=== PATIENT | female | born 1995 | race Caucasian/White ===

== ENCOUNTER 2019-07-21 13:10 | Emergency (ER) | payer MEDICAID, SELFPAY ==
[2019-07-21 13:11] VITALS: BP 134/74; PULSE 89; RESP 16; TEMP 36.4; O2SAT 96; BMI 37.8
--- NOTE | 2019-07-21 14:02 | CT_ITS ---
STUDY: CT ABDOMEN AND PELVIS WITHOUT CONTRAST REASON FOR EXAM: Female, 24 years old. LLQ PAIN- NAUSEA, SURG-LAILA, X 2, HAS IUD RADIATION DOSAGE (If Supplied By Facility): CTDIvol = ( 14.8 ) mGy, DLP = ( 729.58 ) mGycm TECHNIQUE: Transaxial images were obtained from the dome of the diaphragm to the symphysis pubis without oral contrast, and without intravenous contrast. Sagittal and coronal images were reconstructed. Individualized dose optimization techniques were used for this CT. COMPARISON: None. FINDINGS: The visualized lung bases are unremarkable. The visualized portions of the heart are within normal limits. Normal liver. There are surgical clips in the gallbladder fossa consistent with a prior cholecystectomy. Normal spleen. Normal pancreas. Normal bilateral adrenal glands. Normal right kidney. Normal left kidney. Normal visualized stomach. Normal small intestine. Focal stranding in the fat anterior to the distal descending colon. Differential diagnosis includes focal colitis, diverticulitis even though no diverticular seen, or epiploic appendicitis. No loculated fluid collection to suggest abscess. No pneumoperitoneum to suggest perforation. The appendix is visualized and appears normal. Normal abdominal aorta. Normal inferior vena cava. Normal retroperitoneum. Normal urinary bladder. Intrauterine device within the uterus. Normal abdominal wall. Normal osseous structures. CT/Abdomen/Pelvis without Cont IMPRESSION: Small amount of focal fat stranding anterior to the distal descending colon differential diagnosis includes focal colitis, diverticulitis, or epiploic appendicitis. No abscess or perforation. Electronically Signed: Jeff Topete MD at 15:14 EST Tel , Service support ,
--- NOTE | 2019-07-21 14:07 | ED.DCSUM_ITS ---
History of Present Illness Chief Complaint: Abd Pain Informant: Patient Narrative: Patient presents with lower left abdominal pain. Patient states that symptoms began after moving her sectional couch. She notes pain with walking with laying down. She states it feels better if she lays on her abdomen or if she bends her legs up while on her back. No hematuria or bowel issues. She denies any hernia. No bruising of the skin. No vomiting or fevers. She does have a history of ovarian cyst. Pain is described as an ache sometimes sharp. Past Medical History - Allergies and Home Meds Allergies/Adverse Reactions: Allergies amoxicillin Allergy (Verified 07/21/19 13:11) Anaphylaxis cefprozil [From Cefzil] Allergy (Verified 07/21/19 13:11) Itching Penicillins [PCN] Allergy (Verified 07/21/19 13:11) Anaphylaxis bupropion [From Wellbutrin] Adverse Reaction (Verified 07/21/19 13:11) Vomiting Primary Care Physician: Jason Anders MD [Primary Care Provider] - 1 Week Smoking Status: Current every day smoker Review of Systems General: Denies: Chills, Fever, Sweats Eyes: Denies: Visual changes - bilaterally, Diplopia ENT: Denies: Rhinorrhea, Sore throat Cardiovascular: Denies: Chest pain, Palpitations Respiratory: Denies: Dyspnea, Cough, Dyspnea on exertion Gastrointestinal: Reports: Abdominal pain. Denies: Nausea, Vomiting, Diarrhea, Melena, Hematochezia Genitourinary: Denies: Dysuria, Hematuria, Frequency Musculoskeletal: Denies: Back pain, Extremity Pain Skin: Denies: Rash, Wounds Neurological: Denies: Headache, Weakness, Numbness Physical Exam Vital Signs/Narrative: Vital Signs Temp Pulse Resp BP Pulse Ox 07/21/19 13:11 97.5 F L 89 16 134/74 H 96 Inital Vital Signs reviewed: Yes General: Well nourished, Well developed, No Acute Distress Head: Normocephalic, Atraumatic Eyes: Perrl, EOMI ENT: Moist mucous membranes, No rhinorrhea Neck: Supple, Nontender Cardiovascular: Regular rate, Regular rhythm, No murmurs Respiratory: No distress, CTA bilaterally, Chest nontender Abdomen: Soft, Nondistended, Normal bowel sounds, Tender - LLQ pain Back: Nontender, Normal Inspection Extremities: Nontender, No edema Skin: Normal color, No rash Neurological: Alert, Oriented x3, Cranial nerves II-XII grossly intact, Normal Strength, Normal Sensation Psychological: Normal affect, Normal Mood Diagnostic/Tx/Re-eval - Medical Decision Making Urinalysis is nitrate +0-5 white cells 2+ bacteria. We will send this for culture. And she is asymptomatic in terms of dysuria frequency or hematuria. CT of the abdomen pelvis demonstrated some inflammatory changes around a focal area of the descending colon. Unclear if this is a colitis versus a epiploic appendagitis type of picture. At this point I think is reasonable to give her Cipro Flagyl pain and nausea medication and have her follow-up with primary care return if worsening or concerns. She is comfortable with this plan. ED Disposition - Plan for ED Patient: Disposition: Home or Assisted Living Diagnosis: Colitis Prescriptions: Ciprofloxacin [Cipro] 500 mg PO BID #14 tab Prescription Printed metroNIDAZOLE [Flagyl] 500 mg PO Q8H #21 tab Prescription Printed Hydrocodone Bitart/Apap 5-325 [[place] 5MG-325MG] 1 tab PO Q6H PRN PRN 3 Days #10 tab PRN Reason: Pain Prescription Printed Ondansetron [Zofran Odt] 4 mg PO Q8H PRN PRN #10 tab PRN Reason: Nausea Prescription Printed Referrals: Jason Anders MD [Primary Care Provider] - 1 Week
[2019-07-21 14:31] LABS: Mucous, Urine 0 SEEN /hpf (<or=2+); Red Blood Cells-Urine 0 SEEN /hpf (0-5)
[2019-07-21 14:38] LABS: Color, Urine Yellow (Yellow); Glucose, Dipstick Normal (Normal); Ketone-Dipstick Negative (Negative); Leukocyte Esterase-Dipstick 25 /ul (Negative); Nitrite-Dipstick Positive (Negative); Occult Blood-Urine Negative /ul (Negative); Protein-Dipstick Negative (Negative); Urine Bilirubin Dipstick Negative (Negative); Urine Clarity Sl. Cloudy (Clear); Urine Urobilinogen Normal (Normal)
[2019-07-21 14:41] LABS: Internal QC Validated? YES +Cl - CLEAR BKGD; Pregnancy, Urine Negative Negative
[2019-07-21 14:44] LABS: Bacteria 2+ /hpf (None Seen); Squamous Epithelial Cells - UA 0-5 SEEN /hpf (5-10); White Blood Cells 0-5 SEEN /hpf (0-5)
[2019-07-21 15:11] VITALS: BP 125/77; PULSE 82; RESP 18; O2SAT 98
== END 2019-07-21 15:47 | disposition home or self-care (01) ==
PROVIDERS: Emergency Provider Emergency Medicine; PCP Family Medicine
DX: K52.9 Noninfective gastroenteritis and colitis, unspecified (principal); F17.200 Nicotine dependence, unspecified, uncomplicated
CPT/HCPCS: 74176; 81001; 81025; 87086; 87088; 87186; 99282

== ENCOUNTER 2019-12-17 12:01 | Emergency (ER) | payer MEDICAID, SELFPAY ==
[2019-12-17 12:04] VITALS: BP 145/45; PULSE 79; RESP 18; TEMP 36.4; O2SAT 97; BMI 38.8
--- NOTE | 2019-12-17 12:52 | ED.DCSUM_ITS ---
- ER Visit Summary Date of Service: 12/17/19 Chief Complaint: Right shoulder pain History of Present Illness: The patient is a 24 F presenting with right shoulder pain. This started approximately 2 weeks ago. Patient does not recall a specific injury. She states she does a lot of lifting at work. 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 She has tried Tylenol and ibuprofen at home. She denies fever or cough. Denies other complaints. Physical Examination: Vitals are stable. Patient is afebrile. Alert no acute distress. HEENT exam is unremarkable. Neck is supple. Lungs are clear and equal bilaterally. Heart is regular rate and rhythm. Extremities right anterior shoulder tenderness with painful active full range of motion. No erythema or warmth. Neurovascular intact distally. Skin is warm and dry. No focal neurologic deficit. Remainder of exam is unremarkable. Emergency Department Course and Treatment: Patient was given Toradol IM. Right shoulder x-ray shows normal x-ray examination of the shoulder. D-dimer negative. On reevaluation, she is resting comfortably. She is given prescription for Naprosyn. Advised follow-up with her primary care physician. Advised return if worsening complaints. Disposition: Discharge home Impression: Right shoulder sprain This note was generated with [employer] dictation software. It may contain incorrect words, spelling, and punctuation that were not noted in review of the chart prior to signing ED Disposition - Plan for ED Patient: Instructions: ED Shoulder Sprain Prescriptions: Naproxen [Naprosyn] 500 mg PO BID PRN #20 tab Prescription Printed Referrals: Jason Anders MD [Primary Care Provider] -
--- NOTE | 2019-12-17 13:25 | RAD_ITS ---
STUDY: X-RAY - RIGHT SHOULDER REASON FOR EXAM: Female, 24 years old. RIGHT SHOULDER PAIN X 2 WEEKS TECHNIQUE: 4 view(s) of the shoulder. COMPARISON: None. FINDINGS: Normal glenohumeral articulation. Normal acromioclavicular joint. Normal acromion. Normal humeral head and visualized proximal humerus. The soft tissue structures are unremarkable. Normal visualized pulmonary apex. RAD/Shoulder min 2 Views IMPRESSION: Normal x-ray examination of the shoulder. Electronically Signed: Madan Overton MD at 13:41 EDT , Service support ,
[2019-12-17] MEDS: Ketorolac 30 MG/ML Syringe IM (13:52)
[2019-12-17 14:09] LABS: D-Dimer Quantitative (DVT/PE) 0.48 FEU/ug/m (0.27-0.49)
--- NOTE | 2019-12-17 14:20 | ED.DEP ---
ED Disposition - Plan for ED Patient: Instructions: ED Shoulder Sprain Prescriptions: Naproxen [Naprosyn] 500 mg PO BID PRN #20 tablet Referrals: Jason Anders MD [Primary Care Provider] -
== END 2019-12-17 14:53 | disposition home or self-care (01) ==
LOC: ED 12:54
PROVIDERS: Emergency Provider Emergency Medicine; PCP Family Medicine
DX: S43.401A Unspecified sprain of right shoulder joint, initial encounter (principal); X58.XXXA Exposure to other specified factors, initial encounter; Y93.9 Activity, unspecified; Y92.9 Unspecified place or not applicable; Y99.9 Unspecified external cause status
CPT/HCPCS: 73030; 85379; 96372; 99282; A4216

== ENCOUNTER → 2019-12-25 11:23 | Outpatient (CLI) | payer MEDICAID, SELFPAY ==
[2019-12-17 12:04] VITALS: BMI 38.8
== END ==
PROVIDERS: PCP Family Medicine; Referring Provider Nurse Practitioner; Visit Provider Nurse Practitioner
DX: Z20.828 Contact with and (suspected) exposure to other viral communicable diseases (principal)
CPT/HCPCS: 87635; 94799; U0003

== ENCOUNTER 2021-10-26 20:04 | Emergency (ER) | payer MEDICAID, SELFPAY ==
[2021-10-26 20:06] VITALS: BP 137/97; PULSE 95; RESP 18; TEMP 35.9; O2SAT 98; BMI 41.3
[2021-10-26 20:15] VITALS: O2SAT 98
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
--- NOTE | 2021-10-26 20:30 | RAD_ITS ---
STUDY: X-RAY CHEST REASON FOR EXAM: Female, 26 years old. CHEST PAIN trauma TECHNIQUE: XR Chest 2 Views COMPARISON: None FINDINGS: There is no demonstrated pleural abnormality. Normal size heart. Normal mediastinum and marcella. Normal visualized pulmonary arteries. Normal visualized aortic arch and descending thoracic aorta. Normal visualized thoracic spine. Normal visualized ribs, clavicles, and shoulders. There is no demonstrated abnormality of the visualized soft tissue structures of the upper abdomen. RAD/Chest PA and Lateral IMPRESSION: There are no acute findings. Electronically Signed: Efe Muñoz MD at 20:48 EDT ,
[2021-10-26] MEDS: Acetaminophen 325 MG Tablet 650 MG PO (20:59)
== END 2021-10-26 21:01 | disposition home or self-care (01) ==
PROVIDERS: Emergency Provider Emergency Medicine; Visit Provider Emergency Medicine
DX: S80.812A Abrasion, left lower leg, initial encounter (principal); R07.9 Chest pain, unspecified; M54.2 Cervicalgia; F17.210 Nicotine dependence, cigarettes, uncomplicated; V43.52XA Car driver injured in collision with other type car in traffic accident, initial encounter; Y92.410 Unspecified street and highway as the place of occurrence of the external cause; E66.9 Obesity, unspecified; F32.A Depression, unspecified; F41.9 Anxiety disorder, unspecified; Z79.899 Other long term (current) drug therapy
CPT/HCPCS: 71046; 99284

== ENCOUNTER 2023-06-15 01:49 | Emergency (ER) | payer MEDICAID, SELFPAY ==
[2023-06-15 01:49] VITALS: BP 145/75; PULSE 91; RESP 16; TEMP 36.3; O2SAT 98; BMI 41.3
--- NOTE | 2023-06-15 02:13 | CT_ITS ---
EXAM: CT Abdomen And Pelvis W/ Contrast Injection HISTORY: colitis LLQ TECHNIQUE: Routine protocol CT abdomen pelvis. IV Contrast: IV 100mL Isovue-370 . Oral Contrast: without. Sagittal and coronal images were reconstructed. RADIATION DOSAGE (If Supplied By Facility): CTDIvol = ( 17.07 ) mGy, DLP = ( 1215.28 ) mGycm Individualized dose optimization techniques were used for this CT. COMPARISON: CT abdomen and pelvis 07/21/2019. LIMITATIONS: None. FINDINGS: LOWER CHEST: Lung bases are clear. LIVER: Unremarkable. GALLBLADDER/BILE DUCTS: Gallbladder is surgically absent. PANCREAS: Unremarkable. SPLEEN: Unremarkable. ADRENAL GLANDS: Unremarkable. KIDNEYS / URETERS: Unremarkable. BOWEL / MESENTERY: Mild focal stranding adjacent to the wall of the proximal sigmoid colon, surrounding a fat attenuation structure, with mild asymmetric colonic wall thickening. No bowel obstruction. APPENDIX: Identified and normal. No evidence of acute appendicitis. PERITONEUM: No free air. No free fluid. VESSELS: Abdominal aorta is normal caliber. RETROPERITONEUM: Unremarkable. REPRODUCTIVE ORGANS: 2.5 cm cyst or follicle in the left ovary. BLADDER: Unremarkable. ABDOMINAL WALL: Unremarkable. BONES: No acute abnormality. OTHER: None. CT/Abdomen/Pelvis W IV Cont ONLY IMPRESSION: Findings consistent with acute epiploic appendagitis of the proximal sigmoid colon. Electronically Signed: Angelia Armas MD at 3:54 EST ,
--- NOTE | 2023-06-15 02:15 | EDS_ITS ---
HPI History of Present Illness Chief Complaint: Abd Pain Informant: patient Narrative Narrative: 28-year-old female presenting to the emergency room for chief complaint of abdominal pain. 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 She states that now she is having blood in the stool. She states that she had a very similar occurrence in 2019. She was seen by this physician was diagnosed with colitis from the CT. She states that she followed up but did not require a colonoscopy. She has not had a reoccurrence until today. She notes her mom has a history of diverticulitis. Patient denies any fevers. No urinary symptoms. She denies risk of secondary to sterilization. She denies mucus in the stool. She notes that the stool is formed. [facility] Medical History (Updated 06/15/23 @ 04:[address] Myron Machuca DO) Anxiety delivery delivered Colitis Depression PTSD (post-traumatic stress disorder) Home Medications NK 06/15/23 [History Last Taken Unknown] Allergy/AdvReac Type Severity Reaction Status Date / Time amoxicillin Allergy Anaphylaxis Verified 06/15/23 01:50 cefprozil [From Cefzil] Allergy Itching Verified 06/15/23 01:50 Penicillins [PCN] Allergy Anaphylaxis Verified 06/15/23 01:50 bupropion [From Wellbutrin] AdvReac Vomiting Verified 06/15/23 01:50 Surgical History History of tonsillectomy and adenoidectomy Hx of cholecystectomy Social History Smoking Status: Current every day smoker tobacco type: cigarettes ROS ROS ED Constitutional Constitutional ED: Denies chills, fever(s) or weight loss Eyes Eyes: Denies change in vision or diplopia ENT ENT ED: Denies ear pain, rhinorrhea or sore throat Cardiovascular Cardiovascular: Denies chest pain, orthopnea, palpitations or racing heartbeat Respiratory/Chest Respiratory/Chest: Denies cough, dyspnea or orthopnea Gastrointestinal Gastrointestinal: Reports abdominal pain and other Details: Bright red blood per rectum ; Denies constipation, diarrhea, nausea or vomiting Genitourinary Genitourinary ED: Denies dysuria, hematuria or urinary frequency Musculoskeletal Musculoskeletal: Denies arthralgias or myalgias Integumentary Denies abscess or rash Neurologic Neurologic: Denies headache(s) or weakness Psychiatric Psychiatric: Denies anxiety, depression, suicidal ideation or suicidal thoughts Endocrine Endocrinology: Denies polydipsia, polyphagia or polyuria Allergic/Immunologic Allergic/Immunologic ED: Denies mouth swelling, tongue swelling or urticaria EXAM Physical Exam Const Vital Signs: 06/15/23 01:49 06/15/23 03:56 Temperature 97.3 F L Temperature Source Temporal Pulse Rate 91 77 Respiratory Rate 16 16 Blood Pressure 145/75 H 96/64 Blood Pressure Mean 98 74 Pulse Ox 98 96 Oxygen Delivery Method Room Air Room Air Positive well nourished, well developed and obese General Appearance ED: well developed Nutritional Appearance: obese HEENT Reports normocephalic, head/scalp atraumatic and moist mucous membranes Eyes PERRL and EOMs intact bilaterally Neck no lymphadenopathy, supple and no JVD Resp normal respiratory effort and clear to auscultation bilaterally Cardio regular rate, regular rhythm and no murmurs GI Inspection: Negative for abdominal distention Auscultation: normoactive bowel sounds Palpation: soft and tender LLQ; Negative for guarding or rebound tenderness present Back/Spine no CVA tenderness and normal ROM Extremity normal to inspection General Extremety ED: Negative for edema General Extremity: Negative for edema Neuro oriented x3 and CN's II-XII intact bilaterally Sensorium / Orientation: alert Motor Exam: strength 5/5 throughout Psych mental status grossly normal Mood & Affect: Negative for depressed or tearful Skin no rashes or lesions noted and no wounds MDM MDM MDM Narrative Medical decision making narrative: White count slightly elevated 12.2 hemoglobin 13.5 platelet count 311. test negative. Creatinine 0.[address] of the abdomen pelvis with IV contrast was obtained. This shows some inflammatory changes around the proximal aspect of the sigmoid colon. Possible epiploic appendagitis. Although I do not believe that should necessarily cause you to have bright red rectal bleeding and 6 days of pain. There is an ovarian cyst which may be contributing to the pain. This could certainly be another mild case of diverticulitis/ colitis. I do not feel strongly that the patient needs to be admitted. I think we can treat with some pain medication and Cipro Flagyl as she has a penicillin allergy. I would encourage her to obtain GI follow-up. She was advised that should she worsen such as fever or worsening pain increased bleeding she should return to emergency. She notes understanding. History & Record Review Discussion w/independent historian: Patient Additional record(s) reviewed:: Prior outpatient record, Prior ED visit and Prior labs Lab Data Attestation: I reviewed the patient's lab results. Labs: Laboratory Results - last 24 hr 06/15/23 02:04 WBC 12.2 H RBC 5.45 H Hgb 13.5 Hct 44.7 MCV 82.0 MCH 24.8 L MCHC 30.2 L RDW Std Deviation 45.5 H RDW Coeff of Gautam 15.4 H Plt Count 311 MPV 10.8 Immature Gran % (Auto) 0.500 Neut % (Auto) 67.4 Lymph % (Auto) 25.5 [place] % (Auto) 5.3 Eos % (Auto) 0.8 Baso % (Auto) 0.5 Absolute Neuts (auto) 8.2 H Absolute Lymphs (auto) 3.10 Nucleated RBC % 0 Sodium 139 Potassium 3.5 Chloride 107 Carbon Dioxide 26.0 Anion Gap 6 BUN 5 L Creatinine 0.58 Estim Creat Clear Calc 161.90 Est GFR (MDRD) Af Amer 159 Est GFR (MDRD) Non-Af 131 BUN/Creatinine Ratio 8.6 L Glucose 103 Calcium 9.5 Serum , Qual NEGATIVE Radiography Diagnostic Testing: Clinical Impression(s) from Imaging Studies Abdomen/Pelvis CT 06/15/23 02:13 IMPRESSION: Findings consistent with acute epiploic appendagitis of the proximal sigmoid colon. Electronically Signed: Angelia Armas MD at 3:54 EST , Discharge Plan Disposition Disposition: Acute Care [facility] Capacity Legal Teaching Associate Reflex Medical hold order details:: IF a medical hold is selected below, a suggested order for a MEDICAL HOLD will reflex upon signing the document. Next of kin: [place] law dictates a PRIORITY LIST for identifying legal decision-maker/legal next of kin in the following order (LNOK): 1st: The patient?s legal guardian, if any 2nd: The patient's spouse (if status is questionable, consult Risk Management) 3rd: The patient?s adult child(gracia) (majority, if multiple children) 4th: The patient?s parents 5th: The patient?s adult siblings (majority, if multiple children siblings)
[2023-06-15 02:22] LABS: Absolute Neutrophil Count 8.2 X10^3/uL (2.0-7.7); Basophil# 0.06 X10^3/uL; Basophil% 0.5 % (0-1); Eosinophils% 0.8 % (0-5); Hematocrit 44.7 % (37-47); Hemoglobin 13.5 g/dL (12.0-15.0); Lymphocyte % 25.5 % (19-41); Mean Corp Hgb Conc 30.2 g/dL (32-36); Mean Corpuscular Hgb 24.8 pg (27.0-32.0); Mean Platelet Vol. 10.8 fl (6.2-12.0); Monocyte# 0.65 X10^3/uL; Monocyte% 5.3 % (0-10); NRBC Flagged by Analyzer 0 % (0-5); Neutrophil # 8.19 X10^3/uL (2.7-7.7); Neutrophil % 67.4 % (47-70); Platelet Count 311 K/mm3 (150-450); RBC Distribution Width CV 15.4 % (11.6-14.6); RBC Distribution Width SD 45.5 fl (35.1-43.9); Red Blood Count 5.45 M/mm3 (4.2-5.4); White Blood Count 12.2 K/mm3 (4.4-11.0)
[2023-06-15 02:34] LABS: Internal QC Validated? YES +Cl - CLEAR BKGD; Pregnancy, Serum, hCG Quali. NEGATIVE Negative
[2023-06-15 02:38] LABS: Anion Gap 6 (5-15); BUN 5 mg/dL (7-18); BUN/Creat Ratio 8.6 RATIO (10-20); Calcium,Total 9.5 mg/dL (8.5-10.1); Chloride 107 mmol/L (98-107); Creatinine, Serum 0.58 mg/dL (0.55-1.02); EST Glomerular Filtration Rate 131 mL/min (>60); Est Glom Filt Rate - Afr Amer 159 mL/min (>60); Glucose 103 mg/dL (74-106); Potassium 3.5 mmol/L (3.5-5.1); Sodium Level 139 mmol/L (136-145)
--- OUTSIDE RECORDS SUMMARY | 2023-06-15 03:03 | XMS RPT_ITS | CCD ---
Author Name Unknown Address [address] [place] [address] Organization [facility] Prov[facility] A[facility] Cashier Name Role Phone Unavailable Primary Care Provider Unavailabl e No, Physician Primary Care Provider Unavailabl e Unavailable Primary Care Provider Unavailabl e Physician, No Pcp Primary Care Provider Unavaila ble VIKASH, JOHANNA Admitting Unavailable VIKASH, JOHANNA Attending Unavailable PHYSICIAN, NO PCP Primary Care Unavailable No, Physician Primary Care Provider Unavailabl e NO, PHYSICIAN Primary Care Unavailable ANIBAL SUERO Admitting Unavailable ANIBAL SUERO Attending Unavailable NO, PHYSICIAN Primary Care Unavailable (GAS), [facility] Consulting Unavailable TARIQ DIOR Admitting Unavailable TARIQ DIOR Attending Unavailable NO, PHYSICIAN Primary Care Unavailable BUSUITO, HIRO BELEN Admitting Unavailable BUSUITO, HIRO BELEN Attending Unavailable SYSTEM, PROVIDER NOT IN Attending Unavaila ble SYSTEM, PROVIDER NOT IN Referring Unavaila ble NO, PHYSICIAN Primary Care Unavailable NO, PHYSICIAN Primary Care Unavailable DESLANDES, JINNA Admitting Unavailable DESLANDES, JUNIORNA Attending Unavailable BUSUITO, HIRO BELEN Attending Unavailable NO, PHYSICIAN Primary Care Unavailable BUSUITO, HIRO BELEN Referring Unavailable BUSUITO, HIRO BELEN Admitting Unavailable NO, PHYSICIAN Primary Care Unavailable NO, PHYSICIAN Primary Care Unavailable TAMIE AYALA Attending Unavailabl e BUSUITOHIRO Attending Unavailable NO, PHYSICIAN Primary Care Unavailable DESLANDES, JINNA Admitting Unavailable DESLANDES, JINNA Referring Unavailable NO, PHYSICIAN Primary Care Unavailable BUSUITO, HIRO BELEN Attending Unavailable NO, PHYSICIAN Primary Care Unavailable TARIQ DIOR Attending Unavailable NO, PHYSICIAN Primary Care Unavailable BUSUITO, HIRO BELEN Attending Unavailable NO, PHYSICIAN Primary Care Unavailable NO, PHYSICIAN Primary Care Unavailable SHANE, TAMIE SHERYL Attending Unavailabl e BUSUITO, HIRO BELEN Attending Unavailable NO, PHYSICIAN Primary Care Unavailable BUSUITO, HIRO BELEN Attending Unavailable NO, PHYSICIAN Primary Care Unavailable BUSUITO, HIRO BELEN Attending Unavailable NO, PHYSICIAN Primary Care Unavailable BUSUITO, HIRO BELEN Attending Unavailable NO, PHYSICIAN Primary Care Unavailable NO, PHYSICIAN Primary Care Unavailable SHANE, TAMIE SHERYL Attending Unavailabl e BUSUITO, HIRO BELEN Attending Unavailable NO, PHYSICIAN Primary Care Unavailable BUSUITO, HIRO BELEN Attending Unavailable NO, PHYSICIAN Primary Care Unavailable NO, PHYSICIAN Primary Care Unavailable SHANE, TAMIE SHERYL Attending Unavailabl e DESLANDES, JUNIORNA Attending Unavailable NO, PHYSICIAN Primary Care Unavailable SYED STERLING Attending Unavailable NO, PHYSICIAN Primary Care Unavailable BUSUITO, HIRO BELEN Attending Unavailable NO, PHYSICIAN Primary Care Unavailable Clementina Carrillo Unavailable Neva Valente Unavailable Surekha Velasquez Unavailable Required, No Pcp Unavailable Unavailable Jeff Wilks Unavailable Unavailable Rachele Metcalf Unavailable Trav pressley Dedra Unavailable Dr. Jeff Wilks Attending Unavaila ble Clementina Carrillo Unavailable Trav pressley Dedra Unavailable Areli Osorio MD Primary Care Provider JOSSELYN MITCHELL Attending Unavailable NO, PHYSICIAN Primary Care Unavailable ARELI OSORIO Primary Care Unavailable ARELI OSORIO Primary Care Unavailable Allergies Allergy Classification Reported Allergen(s) Allergy Type Date of Onset Reaction(s) Facility (9 sources) Penicillins; Translations: [PENICILLINS] Propensity to adverse reactions to drug 9 Anaphylaxis [place] (20 sources) buPROPion; Translations: [BUPROPION] Drug Allergy 0 Vomiting [facility] (20 sources) cefprozil; Translations: [CEFPROZIL] Drug Allergy 0 Itching [facility] (20 sources) Penicillins Propensity to adverse reactions to drug 9 Anaphylaxis [facility] (4 sources) Amoxicillin; Translations: [AMOXICILLIN] Drug Allergy 1 Anaphylaxis [facility] (4 sources) Ampicillin; Translations: [AMPICILLIN] Drug Allergy 1 Anaphylaxis [facility] (20 sources) Morphine; Translations: [MORPHINE] Drug Allergy 1 Sleep Issues, Other (See Comments) [facility] (5 sources) strawberry allergenic extract; Translations: [STRAWBERRY] Drug Allergy 2 Other (See Comments) [facility] (3 sources) Penicillins Drug Allergy 9 Anaphylaxis [facility] Medications Current Medications Medication Drug Class(es) Dates Sig (Normalized) Sig (Original) acetaminophen 325 mg oral tablet (19 sources) take 2 tablets by mouth every six hours as needed for pain acetaminophen (TYLENOL) 325 MG tablet Take 650 mg by mouth every 6 (six) hours as needed for pain . 0 Active doxylamine succinate 25 mg oral tablet (16 sources) Start: 05-09-2021 End: 09-06-2021 take 1 tablet by mouth once daily doxylamine (UNISOM) 25 mg tablet Take 1 (one) tablet (25 mg total) by mouth nightly . 30 tablet 3 05/09/2021 09/06/2021 Active ibuprofen 600 mg oral tablet (2 sources) Nonsteroidal Anti-inflammatory Drug Start: 09-16-2021 End: 10-16-2021 take 1 tablet by mouth every six hours ibuprofen (ADVIL,MOTRIN) 600 MG tablet Take 1 (one) tablet (600 mg total) by mouth every 6 (six) hours . 120 tablet 0 09/16/2021 10/16/2021 Active Completed/Discontinued Medications Medication Drug Class(es) Dates Sig (Normalized) Sig (Original) ARIPiprazole 15 mg oral tablet (3 sources) Atypical Antipsychotic Start: 10-21-2020 take 1 tablet by mouth once daily ARIPiprazole (ABILIFY) 15 mg tablet Take 1 tablet by mouth once daily. 30 tablet 1 10/21/2020 Active Problems Active Problems Problem Classification Problem Date Documented Date Episodic/Chronic Acute posthemorrhagic anemia (2 sources) Acute posthemorrhagic anemia; Translations: [Acute posthemorrhagic anemia] Onset: 09-16-2021 09-16-2021 Episodic Alcohol-related disorders (12 sources) Chronic alcoholism in remission; Translations: [Alcohol dependence, in remission] Onset: 06-24-2020 08-24-2021 Chronic Allergic reactions (1 source) Allergy status to penicillin; Translations: [Allergy status to penicillin] Onset: 11-27-2022 Episodic Anxiety disorders (20 sources) Posttraumatic stress disorder; Translations: [Panic attack] Onset: 08-23-2021 Resolved: 07-27-2022 08-23-2021 Chronic Genitourinary symptoms and ill-defined conditions (7 sources) Andrey hematuria; Translations: [Gross hematuria] Onset: 04-24-2021 Episodic Mood disorders (20 sources) Bipolar disorder, most recent episode depression; Translations: [Bipolar disorder, unspecified] Onset: 10-21-2020 Chronic Other complications of (2 sources) Obesity complicating , unspecified trimester; Translations: [Obesity complicating , unspecified trimester] Onset: 04-11-2021 Chronic Other complications of (4 sources) High risk ; Translations: [Supervision of high risk , unspecified, third trimester] Episodic Other nutritional; endocrine; and metabolic disorders (12 sources) Body mass index 40+ - severely obese; Translations: [Morbid (severe) obesity due to excess calories] Onset: 11-05-2020 08-24-2021 Chronic Residual codes; unclassified (2 sources) Gestation period, 17 weeks; Translations: [17 weeks gestation of ] Episodic Residual codes; unclassified (1 source) Gestation period, 21 weeks; Translations: [21 weeks gestation of ] Episodic Residual codes; unclassified (1 source) Gestation period, 29 weeks; Translations: [29 weeks gestation of ] Episodic Residual codes; unclassified (1 source) Gestation period, 31 weeks; Translations: [31 weeks gestation of ] Onset: 07-22-2021 07-22-2021 Episodic Residual codes; unclassified (2 sources) Gestation period, 32 weeks; Translations: [32 weeks gestation of ] Episodic Residual codes; unclassified (1 source) Gestation period, 34 weeks; Translations: [34 weeks gestation of ] Episodic Residual codes; unclassified (1 source) Tobacco use; Translations: [Tobacco use] Onset: 11-27-2022 Episodic Screening and history of mental health and substance abuse codes (20 sources) H/O: depression; Translations: [Personal history of other mental and behavioral disorders] Onset: 06-24-2020 08-24-2021 Episodic Sprains and strains (1 source) Shoulder strain; Translations: [Strain of right shoulder, initial encounter] Episodic Substance-related disorders (13 sources) Smoker; Translations: [Nicotine dependence, unspecified, uncomplicated] Onset: 11-05-2020 08-24-2021 Chronic Suicide and intentional self-inflicted injury (6 sources) Suicidal thoughts; Translations: [Suicidal ideation] Onset: 11-27-2022 11-27-2022 Episodic Unclassified (2 sources) OB problem visit Onset: 08-17-2021 Unclassified (2 sources) PSYCH EVAL, PANICK ATTACKS 11-27-2022 Past or Other Problems Problem Classification Problem Date Documented Date Episodic/Chronic Diabetes or abnormal glucose tolerance complicating ; childbirth; or the puerperium (18 sources) Abnormal glucose tolerance test during - baby not yet delivered; Translations: [Abnormal glucose complicating ] Onset: 07-25-2021 Resolved: 09-15-2021 Episodic Hemorrhage during ; abruptio placenta; placenta previa (3 sources) Antepartum hemorrhage; Translations: [Hemorrhage in early , unspecified] Onset: 06-24-2020 06-24-2020 Episodic Immunizations and screening for infectious disease (2 sources) Encounter for screening for infections with a predominantly sexual mode of transmission; Translations: [Encounter for screening for infections with a predominantly sexual mode of transmission] Onset: 08-24-2021 Episodic Mycoses (11 sources) Candidiasis of mouth; Translations: [Candidal stomatitis] Onset: 08-17-2021 Resolved: 09-15-2021 Episodic Other complications of (20 sources) Maternal obesity complicating , childbirth and the puerperium, antepartum; Translations: [Obesity complicating , unspecified trimester] Onset: 04-11-2021 Resolved: 10-04-2021 Chronic Other complications of (20 sources) Maternal tobacco use; Translations: [Smoking (tobacco) complicating , unspecified trimester] Onset: 04-11-2021 Resolved: 10-04-2021 Episodic Other complications of (20 sources) RhD negative; Translations: [Other specified related conditions, unspecified trimester] Onset: 04-11-2021 Episodic Other complications of (16 sources) Abdominal pain in ; Translations: [Other specified related conditions, third trimester] Onset: 07-22-2021 Resolved: 09-15-2021 07-22-2021 Episodic Other complications of (16 sources) Variable heart decelerations; Translations: [Maternal care for abnormalities of the heart rate or rhythm, unspecified trimester, not applicable or unspecified] Onset: 07-22-2021 Resolved: 09-15-2021 07-22-2021 Episodic Other complications of (2 sources) Supervision of high risk , unspecified, third trimester; Translations: [Supervision of high risk , unspecified, third trimester] Onset: 09-06-2021 Episodic Other complications of (2 sources) Smoking (tobacco) complicating , unspecified trimester; Translations: [Smoking (tobacco) complicating , unspecified trimester] Onset: 04-11-2021 Episodic Other complications of (2 sources) Other specified related conditions, unspecified trimester; Translations: [Other specified related conditions, unspecified trimester] Onset: 04-11-2021 Episodic Other complications of (2 sources) Smoking (tobacco) complicating , third trimester; Translations: [Smoking (tobacco) complicating , third trimester] Onset: 08-24-2021 Episodic Other lower respiratory disease (12 sources) Snoring; Translations: [Snoring] Onset: 11-05-2020 08-24-2021 Episodic Other and delivery including normal (20 sources) Normal ; Translations: [Encounter for supervision of normal , unspecified, second trimester] Onset: 04-11-2021 Resolved: 10-04-2021 Episodic Other screening for suspected conditions (not mental disorders or infectious disease) (20 sources) Patient encounter status; Translations: [Encounter for other specified screening] Onset: 08-08-2021 Resolved: 10-04-2021 Episodic Residual codes; unclassified (2 sources) Gestation period, 36 weeks; Translations: [36 weeks gestation of ] Onset: 08-24-2021 Episodic Residual codes; unclassified (2 sources) Gestation period, 37 weeks; Translations: [37 weeks gestation of ] Onset: 08-30-2021 Episodic Residual codes; unclassified (6 sources) Gestation period, 38 weeks; Translations: [38 weeks gestation of ] Onset: 09-09-2021 Resolved: 09-15-2021 Episodic Residual codes; unclassified (2 sources) 38 weeks gestation of ; Translations: [38 weeks gestation of ] Onset: 09-06-2021 Episodic Residual codes; unclassified (2 sources) History of uterine scar from previous surgery; Translations: [History of uterine scar from previous surgery] Onset: 04-11-2021 Episodic Residual codes; unclassified (1 source) 37 weeks gestation of ; Translations: [37 weeks gestation of ] Onset: 08-30-2021 Episodic Residual codes; unclassified (2 sources) Unspecified blood type, Rh negative; Translations: [Unspecified blood type, rh negative] Onset: 04-11-2021 Episodic Residual codes; unclassified (1 source) 36 weeks gestation of ; Translations: [36 weeks gestation of ] Onset: 08-24-2021 Episodic Residual codes; unclassified (2 sources) 34 weeks gestation of ; Translations: [34 weeks gestation of ] Onset: 08-08-2021 Episodic Residual codes; unclassified (2 sources) 32 weeks gestation of ; Translations: [32 weeks gestation of ] Onset: 07-25-2021 Episodic Residual codes; unclassified (2 sources) 29 weeks gestation of ; Translations: [29 weeks gestation of ] Onset: 07-05-2021 Episodic Residual codes; unclassified (2 sources) 27 weeks gestation of ; Translations: [27 weeks gestation of ] Onset: 06-21-2021 Episodic Residual codes; unclassified (2 sources) 25 weeks gestation of ; Translations: [25 weeks gestation of ] Onset: 06-06-2021 Episodic Residual codes; unclassified (2 sources) 21 weeks gestation of ; Translations: [21 weeks gestation of ] Onset: 05-09-2021 Episodic Umbilical cord complication (20 sources) Velamentous insertion of umbilical cord; Translations: [Velamentous insertion of umbilical cord, unspecified trimester] Onset: 06-09-2021 Resolved: 09-15-2021 06-09-2021 Episodic Results Test Name Value Interpretation Reference Range Facil ity Vital Signs Date Time Vital Sign Value Performing Clinician Facility 01-09-2023 15:45-0400 Body temperature 97.9 [degF] Areli Szymanski STOCK MOVER.PRINT OPERATOR Work Phone: [facility] 01-09-2023 15:45-0400 Body weight 96.16 kg Areli Szymanski STOCK MOVER.PRINT OPERATOR Work Phone: [facility] 01-09-2023 15:45-0400 Diastolic blood pressure 68 mm[Hg] Areli Szymanski STOCK MOVER.PRINT OPERATOR Work Phone: [facility] 01-09-2023 15:45-0400 Heart rate 64 /min Areli Szymanski STOCK MOVER.PRINT OPERATOR Work Phone: [facility] 01-09-2023 15:45-0400 Respiratory rate 16 /min Areli Szymanski STOCK MOVER.PRINT OPERATOR Work Phone: [facility] 01-09-2023 15:45-0400 SaO2% (BldA) [Mass fraction] 98 % Areli Szymanski STOCK MOVER.PRINT OPERATOR Work Phone: [facility] 01-09-2023 15:45-0400 Systolic blood pressure 116 mm[Hg] Aerli Szymanski STOCK MOVER.PRINT OPERATOR Work Phone: [facility] 11-27-2022 03:00-0400 Diastolic blood pressure 79 mm[Hg] No Pcp Required [facility] 11-27-2022 03:00-0400 Heart rate 80 /min No Pcp Required [facility] 11-27-2022 03:00-0400 Respiratory rate 14 /min No Pcp Required [facility] 11-27-2022 03:00-0400 SaO2% (BldA) [Mass fraction] 98 % No Pcp Required [facility] 11-27-2022 03:00-0400 Systolic blood pressure 109 mm[Hg] No Pcp Required [facility] 05-09-2022 19:45-0500 Body height 156.84 cm Clementina Carrillo Other [facility] 05-09-2022 19:45-0500 Body height 157 cm Clementina Carrillo Other [facility] 05-09-2022 19:45-0500 Body mass index (BMI) [Ratio] 42.4 kg/m2 Clementina Carrillo Other [facility] 05-09-2022 19:45-0500 Body temperature 97.3 [degF] Clementina Carrillo Other [facility] 05-09-2022 19:45-0500 Body weight 104.33 kg Clementina Carrillo Other [facility] 05-09-2022 19:45-0500 Body weight 104 kg Clementina Carrillo Other [employer] [facility] 05-09-2022 19:45-0500 Heart rate 82 /min Clementina Carrillo Other [facility] 04-11-2022 18:02-0500 Body height 157.48 cm Clementina Carrillo Other [facility] 04-11-2022 18:02-0500 Body height 157 cm Clementina Carrillo Other [facility] 04-11-2022 18:02-0500 Body mass index (BMI) [Ratio] 43.2 kg/m2 Clementina Carrillo Other [employer] [facility] 04-11-2022 18:02-0500 Body temperature 97.8 [degF] Clementina Carrillo Other [facility] 04-11-2022 18:02-0500 Body weight 107.05 kg Clementina Carrillo Other [facility] 04-11-2022 18:02-0500 Body weight 107 kg Clementina Carrillo Other [facility] 04-11-2022 18:02-0500 Heart rate 79 /min Clementina Carrillo Other [facility] 04-11-2022 17:17-0500 Body height 157.48 cm Clementina Carrillo Other [facility] 04-11-2022 17:17-0500 Body height 157 cm Clementina Carrillo Other [facility] 04-11-2022 17:17-0500 Body mass index (BMI) [Ratio] 43.2 kg/m2 Clementina Carrillo Other [facility] 04-11-2022 17:17-0500 Body temperature 97.8 [degF] Clementina Carrillo Other [facility] 04-11-2022 17:17-0500 Body weight 107.05 kg Clementina Carrillo Other [facility] 04-11-2022 17:17-0500 Body weight 107 kg Clementina Carrillo Other [facility] 04-11-2022 17:17-0500 Heart rate 79 /min Clementina Carrillo Other [facility] 02-14-2022 20:11-0400 Body height 157.48 cm Clementina Carrillo Other [facility] 02-14-2022 20:11-0400 Body height 157 cm Clementina Carrillo Other [facility] 02-14-2022 20:11-0400 Body mass index (BMI) [Ratio] 40.6 kg/m2 Clementina Carrillo Other [facility] 02-14-2022 20:11-0400 Body temperature 97.3 [degF] Clementina Carrillo Other [facility] 02-14-2022 20:11-0400 Body weight 100.7 kg Clementina Carrillo Other [facility] 02-14-2022 20:11-0400 Body weight 101 kg Clementina Carrillo Other [facility] 02-14-2022 20:11-0400 Heart rate 89 /min Clementina Carrillo Other [facility] 12-27-2021 16:44-0400 Body height 157.48 cm Clementina Carrillo Other [facility] 12-27-2021 16:44-0400 Body height 157 cm Clementina Carrillo Other [facility] 12-27-2021 16:44-0400 Body mass index (BMI) [Ratio] 40.6 kg/m2 Clementina Carrillo Other [facility] 12-27-2021 16:44-0400 Body temperature 97.5 [degF] Clementina Carrillo Other [facility] 12-27-2021 16:44-0400 Body weight 100.7 kg Clementina Carrillo Other [facility] 12-27-2021 16:44-0400 Body weight 101 kg Clementina Carrillo Other [facility] 12-27-2021 16:44-0400 Heart rate 93 /min Clementina Carrillo Other [facility] 11-22-2021 21:24-0400 Body height 157.48 cm Clementina Carrillo Other [facility] 11-22-2021 21:24-0400 Body height 157 cm Clementina Carrillo Other [facility] 11-22-2021 21:24-0400 Body mass index (BMI) [Ratio] 40.6 kg/m2 Clementina Carrillo Other [facility] 11-22-2021 21:24-0400 Body temperature 97.5 [degF] Clementina Carrillo Other [facility] 11-22-2021 21:24-0400 Body weight 100.7 kg Clementina Carrillo Other [facility] 11-22-2021 21:24-0400 Body weight 101 kg Clementina Carrillo Other [facility] 11-22-2021 21:24-0400 Heart rate 88 /min Clementina Greenberg [facility] 10-04-2021 11:12-0400 Body mass index (BMI) [Ratio] 39.32 kg/m2 Hiro Busuito DO Work Phone: [facility] 10-04-2021 11:12-0400 Body temperature 97.9 [degF] Hiro Busuito DO Work Phone: [facility] 10-04-2021 11:12-0400 Body weight 97.52 kg Hiro Busuito DO Work Phone: [facility] 10-04-2021 11:12-0400 Diastolic blood pressure 77 mm[Hg] Hiro Busuito DO Work Phone: [facility] 10-04-2021 11:12-0400 Heart rate 72 /min Hiro Busuito DO Work Phone: [facility] 10-04-2021 11:12-0400 Respiratory rate 16 /min Hiro Busuito DO Work Phone: [facility] 10-04-2021 11:12-0400 SaO2% (BldA) [Mass fraction] 97 % Hiro Busuito DO Work Phone: [facility] 10-04-2021 11:12-0400 Systolic blood pressure 113 mm[Hg] Hiro Busuito DO Work Phone: [facility] 09-06-2021 13:38-0400 Body mass index (BMI) [Ratio] 42.43 kg/m2 Hiro Busuito DO Work Phone: [facility] 09-06-2021 13:38-0400 Body temperature 98.29 [degF] Hiro Busuito DO Work Phone: [facility] 09-06-2021 13:38-0400 Body weight 105.23 kg Hiro Busuito DO Work Phone: [facility] 09-06-2021 13:38-0400 Diastolic blood pressure 69 mm[Hg] Hiro Busuito DO Work Phone: [facility] 09-06-2021 13:38-0400 Heart rate 77 /min Hiro Busuito DO Work Phone: [facility] 09-06-2021 13:38-0400 Respiratory rate 18 /min Hiro Busuito DO Work Phone: [facility] 09-06-2021 13:38-0400 SaO2% (BldA) [Mass fraction] 97 % Hiro Busuito DO Work Phone: [facility] 09-06-2021 13:38-0400 Systolic blood pressure 105 mm[Hg] Hiro Busuito DO Work Phone: [facility] 08-30-2021 13:20-0400 Body mass index (BMI) [Ratio] 42.8 kg/m2 Tamie Ayala CNM Work Phone: [facility] 08-30-2021 13:20-0400 Body temperature 97.9 [degF] Tamie Ayala CNM Work Phone: [facility] 08-30-2021 13:20-0400 Body weight 106.14 kg Tamie Ayala CNM Work Phone: [facility] 08-30-2021 13:20-0400 Diastolic blood pressure 77 mm[Hg] Tamie Ayala CNM Work Phone: [facility] 08-30-2021 13:20-0400 Heart rate 85 /min Tamie Ayala CNM Work Phone: [facility] 08-30-2021 13:20-0400 Respiratory rate 18 /min Tamie Ayala CNM Work Phone: [facility] 08-30-2021 13:20-0400 SaO2% (BldA) [Mass fraction] 98 % Tamie Ayala CNM Work Phone: [facility] 08-30-2021 13:20-0400 Systolic blood pressure 116 mm[Hg] Tamie Ayala CHIRAG Work Phone: [facility] 08-24-2021 09:29-0400 Body height 157.5 cm Hallie Steinberg MD Work Phone: [facility] 08-24-2021 09:29-0400 Body mass index (BMI) [Ratio] 42.25 kg/m2 Hallie Steinberg MD Work Phone: [facility] 08-24-2021 09:29-0400 Body weight 104.78 kg Hallie Steinberg MD Work Phone: [facility] 08-24-2021 09:29-0400 Diastolic blood pressure 71 mm[Hg] Hallie Steinberg MD Work Phone: [facility] 08-24-2021 09:29-0400 Heart rate 87 /min Hallie Steinberg MD Work Phone: [facility] 08-24-2021 09:29-0400 SaO2% (BldA) [Mass fraction] 97 % Hallie Steinberg MD Work Phone: [facility] 08-24-2021 09:29-0400 Systolic blood pressure 105 mm[Hg] Hallie Steinberg MD Work Phone: [facility] 08-17-2021 13:16-0400 Body height 157.5 cm Syed Sterling CNP Work Phone: [facility] 08-17-2021 13:16-0400 Body mass index (BMI) [Ratio] 41.96 kg/m2 Syed Sterling CNP Work Phone: [facility] 08-17-2021 13:16-0400 Body temperature 97.9 [degF] Syed Sterling CNP Work Phone: [facility] 08-17-2021 13:16-0400 Body weight 104.06 kg Syed Sterling CNP Work Phone: [facility] 08-17-2021 13:16-0400 Diastolic blood pressure 68 mm[Hg] Syed Sterling CNP Work Phone: [facility] 08-17-2021 13:16-0400 Heart rate 88 /min Syed Sterling CNP Work Phone: [facility] 08-17-2021 13:16-0400 SaO2% (BldA) [Mass fraction] 96 % Syed Sterling CNP Work Phone: [facility] 08-17-2021 13:16-0400 Systolic blood pressure 108 mm[Hg] Syed Sterling PRINT OPERATOR Work Phone: [facility] 08-08-2021 14:17-0400 Body mass index (BMI) [Ratio] 41.7 kg/m2 Hiro Busuito DO Work Phone: [facility] 08-08-2021 14:17-0400 Body temperature 98.4 [degF] Hiro Busuito DO Work Phone: [facility] 08-08-2021 14:17-0400 Body weight 103.42 kg Hiro Busuito DO Work Phone: [facility] 08-08-2021 14:17-0400 Diastolic blood pressure 75 mm[Hg] Hiro Busuito DO Work Phone: [facility] 08-08-2021 14:17-0400 Heart rate 85 /min Hiro Busuito DO Work Phone: [facility] 08-08-2021 14:17-0400 Respiratory rate 18 /min Hiro Busuito DO Work Phone: [facility] 08-08-2021 14:17-0400 SaO2% (BldA) [Mass fraction] 97 % Hiro Busuito DO Work Phone: [facility] 08-08-2021 14:17-0400 Systolic blood pressure 114 mm[Hg] Hiro Busuito DO Work Phone: [facility] 07-25-2021 14:17-0500 Body mass index (BMI) [Ratio] 41.52 kg/m2 Hiro Busuito DO Work Phone: [facility] 07-25-2021 14:17-0500 Body temperature 98.1 [degF] Hiro Busuito DO Work Phone: [facility] 07-25-2021 14:17-0500 Body weight 102.97 kg Hiro Busuito DO Work Phone: [facility] 07-25-2021 14:17-0500 Diastolic blood pressure 72 mm[Hg] Hiro Busuito DO Work Phone: [facility] 07-25-2021 14:17-0500 Heart rate 91 /min Hiro Busuito DO Work Phone: [facility] 07-25-2021 14:17-0500 Respiratory rate 16 /min Hiro Busuito DO Work Phone: [facility] 07-25-2021 14:17-0500 SaO2% (BldA) [Mass fraction] 97 % Hiro Busuito DO Work Phone: [facility] 07-25-2021 14:17-0500 Systolic blood pressure 108 mm[Hg] Hiro Busuito DO Work Phone: [facility] 07-05-2021 11:29-0500 Body mass index (BMI) [Ratio] 41.34 kg/m2 Hiro Busuito DO Work Phone: [facility] 07-05-2021 11:29-0500 Body temperature 98.4 [degF] Hiro Busuito DO Work Phone: [facility] 07-05-2021 11:29-0500 Body weight 102.51 kg Hiro Busuito DO Work Phone: [facility] 07-05-2021 11:29-0500 Diastolic blood pressure 73 mm[Hg] Hiro Busuito DO Work Phone: [facility] 07-05-2021 11:29-0500 Heart rate 99 /min Hiro Dunlapuito DO Work Phone: [facility] 07-05-2021 11:29-0500 Respiratory rate 16 /min Hiro Fabiuito DO Work Phone: [facility] 07-05-2021 11:29-0500 SaO2% (BldA) [Mass fraction] 94 % Hiro Dunlapuito DO Work Phone: [facility] 07-05-2021 11:29-0500 Systolic blood pressure 107 mm[Hg] Hiro Fabiuito DO Work Phone: [facility] 05-20-2021 14:59-0500 Body temperature 97.9 [degF] No Physician [facility] 05-20-2021 14:59-0500 Diastolic blood pressure 66 mm[Hg] No Physician [facility] 05-20-2021 14:59-0500 Heart rate 94 /min No Physician [facility] 05-20-2021 14:59-0500 Respiratory rate 17 /min No Physician [facility] 05-20-2021 14:59-0500 SaO2% (BldA) [Mass fraction] 96 % No Physician [facility] 05-20-2021 14:59-0500 Systolic blood pressure 97 mm[Hg] No Physician [facility] 05-20-2021 14:59-0500 Body height 157.5 cm No Physician [facility] 05-20-2021 14:59-0500 Body mass index (BMI) [Ratio] 42.3 kg/m2 No Physician [facility] 05-20-2021 14:59-0500 Body weight 104.9 kg No Physician [facility] 05-09-2021 10:29-0500 Body mass index (BMI) [Ratio] 41.88 kg/m2 Hiro Herzogo DO Work Phone: [facility] 05-09-2021 10:29-0500 Body temperature 98.49 [degF] Hiro Herzogo DO Work Phone: [facility] 05-09-2021 10:29-0500 Body weight 103.87 kg Hiro Busuito DO Work Phone: [facility] 05-09-2021 10:29-0500 Diastolic blood pressure 70 mm[Hg] Hiro Busuito DO Work Phone: [facility] 05-09-2021 10:29-0500 Heart rate 95 /min Hiro Busuito DO Work Phone: [facility] 05-09-2021 10:29-0500 Respiratory rate 16 /min Hiro Busuito DO Work Phone: [facility] 05-09-2021 10:29-0500 SaO2% (BldA) [Mass fraction] 97 % Hiro Busuito DO Work Phone: [facility] 05-09-2021 10:29-0500 Systolic blood pressure 103 mm[Hg] Hiro Busuito DO Work Phone: [facility] 04-24-2021 22:11-0500 Diastolic blood pressure 57 mm[Hg] Johanna Scott MD Work Phone: [facility] 04-24-2021 22:11-0500 Heart rate 81 /min Johanna Scott MD Work Phone: [facility] 04-24-2021 22:11-0500 Systolic blood pressure 97 mm[Hg] Johanna Scott MD Work Phone: [facility] 04-24-2021 22:07-0500 SaO2% (BldA) [Mass fraction] 97 % Johanna Scott MD Work Phone: [facility] 04-24-2021 21:51-0500 Body temperature 98.01 [degF] Johanna Scott MD Work Phone: [facility] 04-24-2021 21:51-0500 Respiratory rate 16 /min Johanna Scott MD Work Phone: [facility] 04-11-2021 10:17-0500 Body weight 109.05 kg Hiro Tamez DO Work Phone: [facility] 04-11-2021 10:17-0500 Diastolic blood pressure 75 mm[Hg] Hiro Herzogo DO Work Phone: [facility] 04-11-2021 10:17-0500 Heart rate 82 /min Hiro Herzogo DO Work Phone: [facility] 04-11-2021 10:17-0500 SaO2% (BldA) [Mass fraction] 97 % Hiro Herzogo DO Work Phone: [facility] 04-11-2021 10:17-0500 Systolic blood pressure 110 mm[Hg] Hiro Herzogo DO Work Phone: [facility] 01-07-2020 20:17-0400 Body Temperature 97.3 [degF] [employer] [employer] 01-07-2020 20:17-0400 BP Diastolic 86 mm[Hg] [employer] [facility] [place] 01-07-2020 20:17-0400 BP Systolic 120 mm[Hg] [employer] [place] 01-07-2020 20:17-0400 Pulse (Heart Rate) 74 /min [employer] 01-07-2020 20:17-0400 Pulse Oximetry 98 % [employer] [place] 01-07-2020 20:17-0400 Respiratory Rate 16 /min [facility] [place] [email or web address] Encounters Encounter Date Encounter Type Care Provider Facility Start: 06-04-2023 End: 06-04-2023 ambulatory ARELI OSORIO Facility:[place] Start: 03-19-2023 End: 03-20-2023 Emergency department patient visit JOSSELYN FABIAN [facility] Start: 01-14-2023 ambulatory Radha Walsh APRN.CNP Work Phone: [facility] Procedures Date Procedure Procedure Detail Performing Clinician Start: 01-09-2023 Urnls dip stick/tabl et rgnt auto w/o microscopy Giovana Walters PAAbbyC Work Phone: Start: 10-04-2021 H/O: tubal ligation S/P tubal ligati on Hiro Tamez DO Work Phone: Start: 09-14-2021 End: 09-15-2021 H/O: section Hx of section Tariq Gonzalez Work Phone: Start: 08-24-2021 Us preg uterus real time f/u trnsabdl per fetus Hallie Steinberg MD Work Phone: Start: 07-25-2021 Us preg uterus real time f/u trnsabdl per fetus Hior Tamez DO Work Phone: Start: 05-20-2021 Sars-cov-2 detection by dna/rna Sancho Saunders NP Work Phone: Start: 05-09-2021 Microscopic observat ion [Identifier] in Cervix by Cyto stain Hiro Tamez DO Work Phone: Start: 04-24-2021 Urnls dip stick/tabl et reagent auto microscopy Cleo Ibrahim CN Work Phone: Start: 04-24-2021 EXTRA TUBES Johanna Scott MD Work Phone: Start: 04-24-2021 BECERRA URINE CULTURE TUBE Johanna Scott MD Work Phone: Start: 04-24-2021 YELLOW URINE NO ADDITIVE Johanna Scott MD Work Phone: Start: 04-11-2021 H/O: section History of C-s ection Hiro Tamez DO Work Phone: Start: 01-07-2020 Radex shoulder compl ete minimum 2 views Rajani Babin Work Phone: H/O: section History of C-sectio n Tamie Ayala [facility] Work Phone: H/O: section S/P sectio n Hiro Tamez DO Work Phone: Plan of Treatment Date Care Activity Detail Author Start: 06-21-2031 Tetanus vaccination Tetanus: Every 10yrs [facility] Start: 05-09-2024 Screening for malignant neoplasm of cervix Pap Smear [facility] Start: 01-26-2023 Influenza vaccination INFLUENZA (#1) [facility] Start: 10-12-2022 End: 10-12-2022 [place] - individual psychotherapy v2 [facility] Start: 10-05-2022 End: 10-05-2022 [place] - individual psychotherapy v2 [facility] Start: 08-03-2022 End: 08-03-2022 [facility] individual psychotherapy v2 [facility] Start: 01-26-2022 Influenza vaccination Sequential Influenza Vaccine (Season Ended) [facility] Start: 10-27-2021 End: 10-27-2021 ambulatory 10/27/2021 Visit Obstetrics and Gynecology Hiro Tamez DO [address] [place] [address] [facility] Start: 09-29-2021 End: 09-29-2021 Patient encounter procedure 09/29/2021 Office Visit Obstetrics and Gynecology Hiro Tamez DO [address] [place] [address] [facility] Start: 09-19-2021 Subsequent hospital visit by physician 09/19/2021 Hospital Encounter [facility] Start: 09-14-2021 End: 09-14-2021 Admission to same day surgery center 09/14/2021 Surgery Obstetrics Tariq Dior MD [address] [address] SECTION WITH BILATERAL PARTIAL SALPINGECTOMY [facility] Labor & Delivery Immunizations Immunization Date Immunization Notes Care Provider Fa cility 06-21-2021 tetanus toxoid, redu [place] diphtheria toxoid, and acellular pertussis vaccine, adsorbed Hiro Tamez DO Work Phone: [facility] 11-05-2020 COVID-19 original vaccine, age 12+ yr, monovalent (PFIZER-BIONTECH - PURPLE TOP) Areli Szymanski APRN.PRINT OPERATOR Work Phone: [facility] Payers Date Payer Category Payer Medicaid [employer] [facility] [id number] 2021-Present [address] [place] [address] [id number] 2018 Medicaid [id number]. [id number] 2018 Medicaid [id number] 2018 Unknown [id number] 1995 Unknown [id number] 2.16.840.1.919535.3.579.2.1143 1995 Unknown [id number] 2.16.840.1.989278.3.579.2.902 1995 Unknown [id number] 2.16.840.1.848194.3.579.2.2 1995 Unknown [id number] 2.16.840.1.949564.3.579.2.902 1995 Unknown [id number] 2.16.840.1.249188.3.579.2.2 1995 Unknown [id number] 2.16.840.1.017783.3.579.2.902 1995 Unknown [id number] 2.16.840.1.864559.3.579.2. 1995 Unknown [id number] 2.16.840.1.628985.3.579.2. 1995 Unknown [id number] 2.16.840.1.495969.3.579.2. 1995 Unknown [id number] 2.16.840.1.028445.3.579.2.903 1995 Unknown [id number] 2.16.840.1.539573.3.579.2. 1995 Unknown [id number] 2.16.840.1.991486.3.579.2. 1995 Unknown [id number] 2.16.840.1.243782.3.579.2. 1995 Unknown [id number] 2.16.840.1.216096.3.579.2. 1995 Unknown [id number] 2.16.840.1.241051.3.579.2. 1995 Unknown [id number] 2.16.840.1.008876.3.579.2. 1995 Unknown [id number] 2.16.840.1.015627.3.579.2. 1995 Unknown [id number] 2.16.840.1.790856.3.579.2. 1995 Unknown [id number] 2.16.840.1.432127.3.579.2. 1995 Unknown [id number] 2.16.840.1.088510.3.579.2. 1995 Unknown [id number] 2.16.840.1.811662.3.579.2. 1995 Unknown [id number] 2.16.840.1.510340.3.579.2. 1995 Unknown [id number] 2.16.840.1.376432.3.579.2. 1995 Unknown [id number] 2.16.840.1.557405.3.579.2. 1995 Unknown [id number] 2.16.840.1.214321.3.579.2. 1995 Unknown [id number] 2.16.840.1.585954.3.579.2.903 1995 Unknown [id number] 2.16.840.1.274398.3.579.2.1069 1995 Unknown [id number] 2.16.840.1.188006.3.579.2.900 Unknown [employer] Social History Date Type Detail Facility Start: 01-07-2020 End: 01-09-2023 Tobacco smoking status NHIS Current every day smoker [facility] [place] History of tobacco use Cigarette Smoker [facility] [place] Start: 01-07-2020 End: 05-04-2020 Cigarettes smoked current (pack per day) - Reported [facility] Start: 01-07-2020 End: 01-09-2023 Tobacco use and exposure [facility] [place] [place] Start: 01-07-2020 Alcohol intake [facility] [place] [place] Start: 01-07-2020 Alcohol Comment occasionally [facility] Start: 1995 Sex Assigned At Not on file [facility] [place] Start: 07-12-2021 End: 10-01-2021 Exposure to SARS-CoV-2 (event) Not sure [facility] [place] Start: 04-11-2021 End: 01-09-2023 Alcohol intake Ex-drinker (finding) [facility] Start: 04-11-2021 History [facility] Alcohol Comment Have not heavily for 9 yrs, occassionally now. [facility] Start: 12-26-2020 [facility] Start: 04-24-2021 Tobacco Comment pt is in process of quiting [facility] Start: 1995 End: 1995 Sex Assigned At Female [facility] Tobacco smoking consumption unknown [facility] Start: 05-04-2020 End: 10-08-2020 Social connection and isolation panel [facility] Do you belong to any clubs or organizations such as jewish groups, unions, fraternal or athletic groups, or school groups? No [facility] Are you now , , , , never or living with a partner? Never [facility] How often to you hav e a drink containing alcohol? 2-4 times a month [facility] How many standard dr inks containing alcohol do you have on a typical day? 1 or 2 [facility] How often do you hav e 6 or more drinks on 1 occasion? Less than monthly [facility] How hard is it for y ou to pay for the very basics like food, housing, medical care, and heating Somewhat hard [facility] Adult Depression Screening Assessment 5 [facility] Do you feel stress - tense, restless, nervous, or anxious, or unable to sleep at night because your mind is troubled all the time - these days [OSQ] Very much [facility] (I/We) worried wheth er (my/our) food would run out before (I/we) got money to buy more. Sometimes true [facility] Start: 10-08-2020 Education 14 [facility] Start: 10-08-2020 Gender identity Identifies as female gender (finding) [facility] Start: 10-08-2020 Sexual orientation Bisexual (finding) [facility] Goals Date Patient Goal Desired Activity /State 04-27-2022 Goal Observation Clinical Notes 06-30-2020 to 06-04-2023 Telephone Encounter - Stefany Aguirre LPN - 01/16/2023 3:54 PM EDTTelephone Encounter - Mariela Hagan MA - 01/15/2023 8:12 AM EDTTelephone Encounter - Yenifer Cobos - 01/14/2023 8:50 AM EDT Note Date & Type Note Facility 06-04-2023 Note HNO ID: [id number] Author: BONNIE RAMEY APRN.PRINT OPERATOR Service: ? Author Type: Nurse Practitioner Type: Progress Notes Filed: 06/04/2023 12:28 Note Text: Subjective HPI HPI Mitzi Lawler is a 28 year old female who presents today for CC of bilat eye redness/drainage. This started 2 days ago. Has tried nothing for relief. Symptoms are worsened by nothing. Risk factors sick exposures at home. 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 She desires a . I have asked her to obtain her operative report from her last delivery in [place]. I have also asked the patient to activate her MyChart and I will send her EMMIS on and . I have advised her to watch these EMMIs prior to her next appointment. 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 Down from 1 pack/day. Discussed risks of smoking during . Advised pt to quit.TKRN PAST SURGICAL HISTORY Procedure Laterality Date SECTION HX x2 CHOLECYSTECTOMY lap susana INSERTION OF IUD 11/2016 Mirena-removed TONSILLECTOMY AND ADENOIDECTOMY HX childhood ALLERGIES Penicillins, Bupropion, and Cefprozil MEDICATIONS trimethoprim-polymyxin (POLYTRIM) 10,000 unit- 1 mg/mL ophthalmic solution Use 1 Drop in the left eye four times daily for 7 days. fluticasone (FLONASE) 50 mcg/actuation nasal spray Use 2 Sprays in each nostril once daily. Rinse mouth after use. (Patient not taking: Reported on 01/09/2023) benzonatate (TESSALON PERLE) 100 mg capsule Take 2 capsules by mouth three times daily as needed. (Patient not taking: Reported on 01/09/2023) mirtazapine (REMERON) 30 mg tablet Take 1 tablet by mouth daily at bedtime. (Patient not taking: Reported on 01/09/2023) gabapentin (NEURONTIN) 300 mg capsule Take 1 capsule by mouth twice daily for 30 days. (Patient not taking: Reported on 01/09/2023) lamoTRIgine (LAMICTAL) 25 mg tablet Take 1 tablet by mouth twice daily. (Patient not taking: Reported on 01/09/2023) ARIPiprazole (ABILIFY) 15 mg tablet Take 1 tablet by mouth once daily. (Patient not taking: Reported on 01/09/2023) hydrOXYzine pamoate (VISTARIL) 50 mg capsule Take 50 mg by mouth three times daily as needed. (Patient not taking: Reported on 01/09/2023) FAMILY HISTORY Problem Relation Age of Onset Rheumatologic disease Mother RA Depression Mother Kidney Disease Father Alcohol/Drug Father cirrhosis-jaundice Depression Father Depression Sister Seizures Sister No Known Problems Brother Heart disease Maternal Grandmother No Known Problems Maternal Grandfather Cancer Paternal Grandmother lung Alcohol/Drug Paternal Grandmother Cancer Paternal Grandfather lung Alcohol/Drug Paternal Grandfather Alcohol/Drug Maternal Aunt Alcohol/Drug Maternal Uncle Depression Paternal Aunt Depression Sister Seizures Sister Depression Sister No Known Problems Brother No Known Problems Brother No Known Problems Brother No Known Problems Son No Known Problems Son Social History Tobacco Use Smoking status: Every Day Packs/day: 0.50 Years: 12.00 Additional pack years: 0.00 Total pack years: 6.00 Types: Cigarettes Smokeless tobacco: Never Vaping Use Vaping Use: current everyday user Substance Use Topics Alcohol use: Not Currently Alcohol/week: 1.0 standard drink of alcohol Types: 1 Cans of Beer (12oz) per week Drug use: Not Currently Types: Marijuana Comment: Not since teenager ROS Objective Blood pressure 120/68, pulse 87, temperature 36.3 ?C (97.3 ?F), resp. rate 21, weight 102.2 kg (225 lb 6.4 oz), last menstrual period 09/21/2020, SpO2 99%, unknown if currently . Physical Exam Constitutional: General: She is not in acute distress. Appearance: She is not toxic-appearing. HENT: Right Ear: Hearing, tympanic membrane and external ear normal. Left Ear: Hearing, tympanic membrane, ear canal and external ear normal. Nose: No mucosal edema. Mouth/Throat: Pharynx: Uvula midline. Eyes: General: Right eye: Discharge present. Left eye: Discharge present. Conjunctiva/sclera: Right eye: Right conjunctiva is injected. Left eye: Left conjunctiva is injected. Lymphadenopathy: Cervical: Right cervical: No superficial cervical adenopathy. Left cervical: No superficial cervical adenopathy. Comments: No cervical lymphadenopathy bilaterally Neurological: Mental Status: She is oriented to person, place, and time. (more content not included)... [facility] 03-26-2023 Evaluation note SunMar 26 07 :59:11 EDT 2022: No Assessment Information [facility] 03-25-2023 Evaluation note Sun Oct 29 23 :53:54 EDT 2022: No Assessment Information [facility] 03-25-2023 Evaluation note Sun Oct 29 17 :10:20 EDT 2022: No Assessment Information [facility] 03-25-2023 Evaluation note Sun Oct 29 15 :25:53 EDT 2022: No Assessment Information [facility] 03-23-2023 Evaluation note Fri Oct 27 16 :35:12 EDT 2022: No Assessment Information [facility] 03-21-2023 Evaluation note Wed Oct 25 03 :21:54 EDT 2022: No Assessment Information [facility] 03-20-2023 Evaluation note Tue Oct 24 20 :03:50 EDT 2022: No Assessment Information [facility] 03-20-2023 Evaluation note Tue Oct 24 06 :22:46 EDT 2022: No Assessment Information [facility] 03-20-2023 Evaluation note Tue Oct 24 04 :36:26 EDT 2022: No Assessment Information [facility] 03-20-2023 Evaluation note Tue Oct 24 00 :39:04 EDT 2022: No Assessment Information [facility] 02-25-2023 Evaluation note Sun Oct 01 22 :08:10 EDT 2022: No Assessment Information [facility] 02-23-2023 Evaluation note Fri Sep 29 00 :47:54 EDT 2022: No Assessment Information [facility] 02-18-2023 Evaluation note Sun Sep 24 23 :34:25 EDT 2022: No Assessment Information [facility] 02-17-2023 Evaluation note Sat Sep 23 16 :13:07 EDT 2022: No Assessment Information [facility] 02-16-2023 Evaluation note Fri Sep 22 03 :03:03 EDT 2022: No Assessment Information [facility] 02-14-2023 Evaluation note Wed Sep 20 20 :35:13 EDT 2022: No Assessment Information [facility] 02-11-2023 Evaluation note Sun Sep 17 15 :41:51 EDT 2022: No Assessment Information [facility] 02-08-2023 Evaluation note [place] Sep 14 00 :29:33 EDT 2022: No Assessment Information [facility] 02-08-2023 Evaluation note [place] Sep 14 00 :08:26 EDT 2022: No Assessment Information [facility] 02-07-2023 Evaluation note Wed Sep 13 23 :25:38 EDT 2022: No Assessment Information [facility] 02-05-2023 Evaluation note Mon Sep 11 08 :27:19 EDT 2022: No Assessment Information [facility] 02-05-2023 Evaluation note Mon Sep 11 08 :07:32 EDT 2022: No Assessment Information [facility] 02-03-2023 Evaluation note Sat Sep 09 21 :46:02 EDT 2022: No Assessment Information [facility] 02-02-2023 Evaluation note Fri Sep 08 12 :04:26 EDT 2022: No Assessment Information [facility] 02-02-2023 Evaluation note Fri Sep 08 11 :02:02 EDT 2022: No Assessment Information [facility] 02-01-2023 Evaluation note [place] Sep 07 00 :18:29 EDT 2022: No Assessment Information [facility] 01-29-2023 Evaluation note Mon Sep 04 21 :31:21 EDT 2022: No Assessment Information [facility] 01-28-2023 Evaluation note Sun Sep 03 15 :24:46 EDT 2022: No Assessment Information [facility] 01-28-2023 Evaluation note Sun Sep 03 14 :54:48 EDT 2022: No Assessment Information [facility] 01-28-2023 Evaluation note Sun Sep 03 13 :28:41 EDT 2022: No Assessment Information [facility] 01-28-2023 Evaluation note Sun Sep 03 13 :00:15 EDT 2022: No Assessment Information [facility] 01-27-2023 Evaluation note Sat Sep 02 22 :26:56 EDT 2022: No Assessment Information [facility] 01-16-2023 Miscellaneous Notes Pt called back and message below was given. Pt is at work and does not get messages sometimes till after 5 pm. Pt verbalizes understanding. Stefany Aguirre LPN documented in this encounter [facility] 01-15-2023 Miscellaneous Notes Third and final call attempt, left VM instructing patient to return call to receive results. Letter will also be mailed to listed address today. Mariela Hagan MA Left message for patient to return call. Yenifer Cobos Left message for patient to return call. Yenifer Cobos Patient is on the correct antibiotic according to urine culture. If symptoms do not seem to be improving patient needs to follow-up with primary care provider documented in this encounter [facility] 01-13-2023 Evaluation note Sat Jan 13 15 :16:29 EDT 2022: No Assessment Information [facility] 01-13-2023 Evaluation note Sat Jan 13 13 :28:02 EDT 2022: No Assessment Information [facility] 01-12-2023 Evaluation note Fri Jan 12 23 :22:42 EDT 2022: No Assessment Information [facility] 01-12-2023 Evaluation note Fri Jan 12 05 :48:03 EDT 2022: No Assessment Information [facility] 01-11-2023 Evaluation note [place] Jan 11 05 :19:54 EDT 2022: No Assessment Information [facility] 01-10-2023 Evaluation note Wed Jan 10 13 :13:33 EDT 2022: No Assessment Information [facility] 01-09-2023 Note HNO ID: [id number] Author: Areli Szymanski APRN.JOEY Service: ? Author Type: Nurse Practitioner Type: Progress Notes Filed: 01/09/2023 4:00 PM Note Text: Subjective HPI A nontoxic appearing female presents to urgent care with chief complaint of possible UTI. Duration of symptoms 1 week. Associated symptoms dysuria, frequency, and urgency. Patient has history of UTIs in past with similar signs and symptoms. Patient denies the use of any uxbb-kag-jrphzsi medications or home remedies for symptom management. Patient states pain is a 3/10. Patient denies any fevers, flank pain, abdominal pain, nausea, vomiting, vaginal discharge, chance of STDs, chance of , or urological abnormalities. Past medical history prescription medication use and allergies reviewed. 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 She desires a . I have asked her to obtain her operative report from her last delivery in [place]. I have also asked the patient to activate her MyChart and I will send her EMMIS on and . I have advised her to watch these EMMIs prior to her next appointment. 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 Down from 1 pack/day. Discussed risks of smoking during . Advised pt to quit.TKRN PAST SURGICAL HISTORY Procedure Laterality Date SECTION HX x2 CHOLECYSTECTOMY lap susana INSERTION OF IUD 11/2016 Mirena-removed TONSILLECTOMY AND ADENOIDECTOMY HX childhood ALLERGIES Penicillins, Bupropion, and Cefprozil MEDICATIONS fluticasone (FLONASE) 50 mcg/actuation nasal spray Use 2 Sprays in each nostril once daily. Rinse mouth after use. (Patient not taking: Reported on 01/09/2023) benzonatate (TESSALON PERLE) 100 mg capsule Take 2 capsules by mouth three times daily as needed. (Patient not taking: Reported on 01/09/2023) mirtazapine (REMERON) 30 mg tablet Take 1 tablet by mouth daily at bedtime. (Patient not taking: Reported on 01/09/2023) gabapentin (NEURONTIN) 300 mg capsule Take 1 capsule by mouth twice daily for 30 days. (Patient not taking: Reported on 01/09/2023) lamoTRIgine (LAMICTAL) 25 mg tablet Take 1 tablet by mouth twice daily. (Patient not taking: Reported on 01/09/2023) ARIPiprazole (ABILIFY) 15 mg tablet Take 1 tablet by mouth once daily. (Patient not taking: Reported on 01/09/2023) hydrOXYzine pamoate (VISTARIL) 50 mg capsule Take 50 mg by mouth three times daily as needed. (Patient not taking: Reported on 01/09/2023) FAMILY HISTORY Problem Relation Age of Onset Rheumatologic disease Mother RA Depression Mother Kidney Disease Father Alcohol/Drug Father cirrhosis-jaundice Depression Father Depression Sister Seizures Sister No Known Problems Brother Heart disease Maternal Grandmother No Known Problems Maternal Grandfather Cancer Paternal Grandmother lung Alcohol/Drug Paternal Grandmother Cancer Paternal Grandfather lung Alcohol/Drug Paternal Grandfather Alcohol/Drug Maternal Aunt Alcohol/Drug Maternal Uncle Depression Paternal Aunt Depression Sister Seizures Sister Depression Sister No Known Problems Brother No Known Problems Brother No Known Problems Brother No Known Problems Son No Known Problems Son Social History Tobacco Use Smoking status: Every Day Packs/day: 0.50 Years: 12.00 Additional pack years: 0.00 Total pack years: 6.00 Types: Cigarettes Smokeless tobacco: Never Vaping Use Vaping Use: current everyday user Substance Use Topics Alcohol use: Not Currently Alcohol/week: 2.5 standard drinks of alcohol Types: 1 Cans of Beer (12oz) per week Drug use: Not Currently Types: Marijuana Comment: Not since teenager BP 116/68 Pulse 64 Temp 36.6 ?C (97.9 ?F) Resp 16 Wt 96.2 kg (212 lb) LMP 09/21/2020 SpO2 98% BMI 38.52 kg/m? Review of Systems Constitutional: Negative for chills, fever and malaise/fatigue. HENT: Negative for congestion, ear discharge, ear pain, sinus pain and sore throat. Eyes: Negative for blurred vision, pain, discharge and redness. Respiratory: Negative for cough, hemoptysis, sputum production, shortness of breath, wheezing and stridor. Cardiovascular: Negative for chest pain. Gastrointestinal: Negative for abdominal pain, diarrhea, nausea and vomiting. Genitourinary: Positive for dysuria, frequency and urgency. Negative for flank pain and hematuria. Musculoskeletal: Negative for myalgi (more content not included)... [facility] 01-09-2023 History of Presen t illness Narrative Subjective HPI A nontoxic appearing female presents to urgent care with chief complaint of possible UTI. Duration of symptoms 1 week. Associated symptoms dysuria, frequency, and urgency. Patient has history of UTIs in past with similar signs and symptoms. Patient denies the use of any verj-tvd-[id number] medications or home remedies for symptom management. Patient states pain is a 3/10. Patient denies any fevers, flank pain, abdominal pain, nausea, vomiting, vaginal discharge, chance of STDs, chance of , or urological abnormalities. Past medical history prescription medication use and allergies reviewed. 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 She desires a . I have asked her to obtain her operative report from her last delivery in [place]. I have also asked the patient to activate her Plug[employer] and I will send her EMMIS on and . I have advised her to watch these EMMIs prior to her next appointment. 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 Down from 1 pack/day. Discussed risks of smoking during . Advised pt to quit.TKRN PAST SURGICAL HISTORY Procedure Laterality Date SECTION HX x2 CHOLECYSTECTOMY lap susana INSERTION OF IUD 11/2016 Mirena-removed TONSILLECTOMY AND ADENOIDECTOMY HX childhood ALLERGIES Penicillins, Bupropion, and Cefprozil MEDICATIONS fluticasone (FLONASE) 50 mcg/actuation nasal spray Use 2 Sprays in each nostril once daily. Rinse mouth after use. (Patient not taking: Reported on 01/09/2023) benzonatate (TESSALON PERLE) 100 mg capsule Take 2 capsules by mouth three times daily as needed. (Patient not taking: Reported on 01/09/2023) mirtazapine (REMERON) 30 mg tablet Take 1 tablet by mouth daily at bedtime. (Patient not taking: Reported on 01/09/2023) gabapentin (NEURONTIN) 300 mg capsule Take 1 capsule by mouth twice daily for 30 days. (Patient not taking: Reported on 01/09/2023) lamoTRIgine (LAMICTAL) 25 mg tablet Take 1 tablet by mouth twice daily. (Patient not taking: Reported on 01/09/2023) ARIPiprazole (ABILIFY) 15 mg tablet Take 1 tablet by mouth once daily. (Patient not taking: Reported on 01/09/2023) hydrOXYzine pamoate (VISTARIL) 50 mg capsule Take 50 mg by mouth three times daily as needed. (Patient not taking: Reported on 01/09/2023) FAMILY HISTORY Problem Relation Age of Onset Rheumatologic disease Mother RA Depression Mother Kidney Disease Father Alcohol/Drug Father cirrhosis-jaundice Depression Father Depression Sister Seizures Sister No Known Problems Brother Heart disease Maternal Grandmother No Known Problems Maternal Grandfather Cancer Paternal Grandmother lung Alcohol/Drug Paternal Grandmother Cancer Paternal Grandfather lung Alcohol/Drug Paternal Grandfather Alcohol/Drug Maternal Aunt Alcohol/Drug Maternal Uncle Depression Paternal Aunt Depression Sister Seizures Sister Depression Sister No Known Problems Brother No Known Problems Brother No Known Problems Brother No Known Problems Son No Known Problems Son Social History Tobacco Use Smoking status: Every Day Packs/day: 0.50 Years: 12.00 Additional pack years: 0.00 Total pack years: 6.00 Types: Cigarettes Smokeless tobacco: Never Vaping Use Vaping Use: current everyday user Substance Use Topics Alcohol use: Not Currently Alcohol/week: 2.5 standard drinks of alcohol Types: 1 Cans of Beer (12oz) per week Drug use: Not Currently Types: Marijuana Comment: Not since teenager BP 116/68 Pulse 64 Temp 36.6 C (97.9 F) Resp 16 Wt 96.2 kg (212 lb) LMP 09/21/2020 SpO2 98% BMI 38.52 kg/m Review of Systems Constitutional: Negative for chills, fever and malaise/fatigue. HENT: Negative for congestion, ear discharge, ear pain, sinus pain and sore throat. Eyes: Negative for blurred vision, pain, discharge and redness. Respiratory: Negative for cough, hemoptysis, sputum production, shortness of breath, wheezing and stridor. Cardiovascular: Negative for chest pain. Gastrointestinal: Negative for abdominal pain, diarrhea, nausea and vomiting. Genitourinary: Positive for dysuria, frequency and urgency. Negative for flank pain and hematuria. Musculoskeletal: Negative for myalgias. Skin: Negative for itching and rash. Neurological: Negative for dizziness and headaches. Objective Physical Exam Constitutional: General: She is not in acute distress. Appearance: She is not toxic-appearing. HENT: Head: Normocephalic. Nose: Nose normal. Mouth/Throat: Mouth: Mucous membranes are moist. Pharynx: Oropharynx is clear. Eyes: Pupils: Pupils are equal, round, and reactive to light. Cardiovascular: Rate and Rhythm: Normal rate. Pulmonary: Effort: Pulmonary effort is normal. No respiratory distress. Abdominal: Tenderness: There is no abdominal tenderness. There is no right CVA tenderness, left CVA tenderness or guarding. Musculoskeletal: Cervical back: Normal range of motion. Lymphadenopathy: Cervical: No cervical adenopathy. Skin: General: Skin is warm and dry. Neurological: General: No focal deficit present. Mental Status: She is alert. ASSESSMENT/PLAN: 1. Burning with urination - ICD9: 788.1, ICD10: R30.0 - UA DIP, URINE (POC) - URINE CULTURE Treat for acute cystitis. Placed on Macrobid. Patient was educated on supportive therapies. Patient will follow up with primary care provider as needed. Patient was instructed to immediately proceed to emergency room for any new, worsening, or symptoms lasting longer than anticipated. The patient's clinical presentation is otherwise unremarkable at this time. Based on exam and clinical finding, the patient is stable for discharge. Plan of care was discussed with patient. Patient verbalizes understanding and agrees to plan of care. This note was generated using [employer] software. It may contain errors in wording, punctuation, or spelling. Areli Szymanski APRN.PRINT OPERATOR documented in this encounter [facility] 01-08-2023 Evaluation note Mon Jan 08 03 :54:13 EDT 2022: No Assessment Information [facility] 01-07-2023 Evaluation note Sun Jan 07 16 :07:59 EDT 2022: No Assessment Information [facility] 01-07-2023 Evaluation note SunJan 07 14 :55:12 EDT 2022: No Assessment Information [facility] 01-07-2023 Evaluation note SunJan 07 06 :15:49 EDT 2022: No Assessment Information [facility] 01-06-2023 Evaluation note Sat Jan 06 21 :11:31 EDT 2022: No Assessment Information [facility] 01-06-2023 Evaluation note Sat Jan 06 11 :34:10 EDT 2022: No Assessment Information [facility] 01-06-2023 Evaluation note Sat Jan 06 11 :17:49 EDT 2022: No Assessment Information [facility] 01-06-2023 Evaluation note Sat Jan 06 10 :55:00 EDT 2022: No Assessment Information [facility] 01-05-2023 Evaluation note SunJan 05 22 :37:01 EDT 2022: No Assessment Information [facility] 01-05-2023 Evaluation note SunJan 05 19 :24:36 EDT 2022: No Assessment Information [facility] 01-04-2023 Evaluation note SunJan 04 14 :59:53 EDT 2022: No Assessment Information [facility] 01-03-2023 Evaluation note SunJan 03 22 :29:53 EDT 2022: No Assessment Information [facility] 01-03-2023 Evaluation note SunJan 03 19 :01:39 EDT 2022: No Assessment Information [facility] 01-01-2023 Evaluation note SunJan 01 13 :08:49 EDT 2022: No Assessment Information [facility] 01-01-2023 Evaluation note SunJan 01 12 :50:40 EDT 2022: No Assessment Information [facility] 11-27-2022 Evaluation note SunNov 27 16 :49:09 EDT 2022: No Assessment Information [facility] 11-17-2022 Evaluation note SunNov 17 12 :29:34 EDT 2022: No Assessment Information [facility] 11-09-2022 Evaluation note SunNov 09 13 :01:10 EDT 2022: No Assessment Information [facility] 11-02-2022 Evaluation note SunNov 02 13 :04:52 EDT 2022: No Assessment Information [facility] 10-06-2022 Evaluation note Fri October 06 16 :41:12 EDT 2022: No Assessment Information [facility] 10-05-2022 Evaluation note [place] October 05 21 :44:55 EDT 2022: No Assessment Information [facility] 09-29-2022 Evaluation note Fri September 29 07 :51:05 EDT 2022: No Assessment Information [facility] 09-22-2022 Evaluation note Fri Sep 22 02 :32:51 EDT 2022: No Assessment Information [facility] 09-16-2022 Evaluation note Sat Sep 16 13 :21:24 EDT 2022: No Assessment Information [facility] 09-08-2022 Evaluation note Fri Sep 08 04 :11:19 EDT 2022: No Assessment Information [facility] 08-31-2022 Evaluation note [place] Aug 31 16 :58:35 EDT 2022: No Assessment Information [facility] 08-31-2022 Evaluation note [place] Aug 31 15 :45:26 EDT 2022: No Assessment Information [facility] 08-31-2022 Evaluation note [place] Aug 31 15 :17:53 EDT 2022: No Assessment Information [facility] 08-25-2022 Evaluation note Fri Aug 25 05 :16:07 EDT 2022: No Assessment Information [facility] 08-18-2022 Evaluation note Fri Aug 18 02 :01:03 EDT 2022: No Assessment Information [facility] 08-11-2022 Evaluation note Fri Aug 11 03 :21:13 EDT 2022: No Assessment Information [facility] 08-04-2022 Evaluation note SunAug 04 00 :52:46 EST 2022: No Assessment Information [facility] 07-31-2022 Evaluation note Mon Jul 31 11 :59:20 EST 2022: No Assessment Information [facility] 10-04-2021 History of Presen t illness Narrative Postoperative Incision Check Visit Pt seen for incision check - is 3 weeks post-op from scheduled repeat section with bilateral salpingectomy on 09/14 at 39w3d due to history CS x 2 and desire for permanent sterilization. Pt without complaints. Pain currently controlled by oral pain medications. Urinating without difficulty. Tolerating regular diet. Ambulates without difficulty. Lochia appropriate, minimal. Denies CP, SOB, N/V/F/C. Pos flatus, pos BM. Pt admits occasional headache that typically occurs in the afternoon most days. Denies vision changes. Reports it's resolved by the morning. Also admits that she strained herself a few days ago and her incision seemed to open a little bit on one side. Her mom put butterfly sutures on it. Denies any drainage from the incision site. Final Diagnosis A. Right fallopian tube, salpingectomy: - Unremarkable fallopian tube. B. Left fallopian tube, salpingectomy: - Unremarkable fallopian tube. Last pap smear: 05/09/21 NIL Physical Exam PACU Vitals 10/04/21 1112 BP: 113/77 Pulse: 72 Resp: 16 Temp: 97.9 F (36.6 C) SpO2: 97% PainSc: 2 PainLoc: Head LMP No LMP recorded. Gen: alert and oriented x3, NAD Cardio: normal rate Resp: no conversational dyspnea, normal respiratory effort GI: soft, fundus firm below umbilicus, appropriate incisional tenderness Integumentary: incision C/D/I, 1cm area on right lateral aspect of incision with two butterfly sutures in place that are starting to come off; removed butterfly sutures and incision is well-approximated without any defects or signs of drainage or infection; no erythema or fluctuance Assessment/Plan: 1. 26 y.o. female who is 3 wks s/p scheduled RCS with bilateral salpingectomy on 09/14 at 39w3d -Incision healing well -Wound care discussed -Lift no more than 20-25 lbs, minimal housework, and pelvic rest until visit -Depression screen: compliant with zoloft 50mg daily, reports mood is currently stable and has appt with behavioral health/counseling in 1 month per pt report -Contraception: s/p bilateral salpingectomy with benign pathology, reviewed above Follow up in 3 weeks for visit I spent 20 minutes with both [id number] and tqe-lpnx-lv-face time reviewing pt's records and discussing pt's clinical presentation and further management. Hiro Tamez DO Obstetrics and Gynecology documented in this encounter [facility] 09-06-2021 Note Addended by: HIRO TAMEZ on: 09/06/2021 03:05 PM Modules accepted: Orders [facility] 09-06-2021 Note Addended by: HIRO TAMEZ on: 09/06/2021 03:05 PM Modules accepted: Orders [facility] 09-06-2021 Miscellaneous Notes Addended by: HIRO TAMEZ on: 09/06/2021 03:05 PM Modules accepted: Orders documented in this encounter [facility] 09-06-2021 History of Presen t illness Narrative Mitzi Lawler is a 26 y.o. being seen today for her obstetrical visit. She is at 38w2d gestation. Patient reports occasional contractions. Denies headache, vision changes or RUQ pain. Denies vaginal bleeding, LOF or contractions. PACU Vitals 09/06/21 1338 BP: 105/69 Pulse: 77 Resp: 18 Temp: 98.3 F (36.8 C) SpO2: 97% PainSc: 5 PainLoc: Hip movement: active. NST: baseline 115bpm, moderate variability, pos accels, no decels, no contractions - overall reactive and reassuring FH: 39 cm Pelvic Exam: 0/40/-4 Assessment/Plan: 26 y.o. with IUP at 38w2d Labs: -OB panel: records requested from [place] 04/11, never received; B-, antibody negative, hgb 11.3 on 07/05, Rubella immune, negative infectious labs -Genetic studies: declines -Anatomy US: level 2 due to history of unknown psychiatric meds at beginning of , 04/27 wnl but incomplete, EFW 51%; repeat scan 06/08 complete and wnl, EFW 50%, velamentous cord insertion noted -Flu vaccine: declines -COVID vaccine: partially vaccinated, Pfizer -Abnormal 1 hr GTT: 148; 3hr GTT wnl 07/26 -Tdap: given 06/21 -Rhogam: given 07/05 -GBS positive PATIENCE: 09/19/21 by 19 wk US that is consistent with pt's reported due date based on 1st trimester US done in [place] Route of delivery: repeat CS with tubal scheduled 09/14 risk factors: // EJ at 17 wks - Moved back to [place] from [place] - Was visiting one of her children in [place] but plans to deliver here - Records requested from [place], never received - labs and cultures obtained 05/09 // Hx CS x 2 - First for intolerance - Second scheduled repeat - Discussed vs RCS, pt initially wanted TOLAC but changed her mind 07/25 to repeat CS due to velamentous cord insertion - calculator 41.6% - For repeat CS at 39wks - scheduled 09/14 // Desires permanent sterilization - Tubal consent signed 08/08 // Bipolar depression, PTSD - Hx 3 hospitalizations in 2019 for psychotic break - Hx lamictal and other unknown psychiatric medications, stopped when she found out she was - Currently taking zoloft 50mg with minimal improvement in symptoms - Referral placed to behavioral health, reminded pt 05/09; new referral order placed 06/06; provided pt phone number to schedule 08/08 - level 2 anatomy US complete and wnl // Rh Negative - Antibody screen negative 07/05 - s/p rhogam (07/05/2021) // Tobacco - was smoking 2 PPD at beginning of - Cut back to 0.25 PPD currently - C/w NST q weekly // Class 3 Obesity - BMI 44 - Recommend eating a variety of of foods each and every day - Recommend a weight gain of 11-20lbs the entire - Explained that obesity is associated with multiple and maternal complications including but not limited to , growth restriction, macrosomia and - Early 1 hr GTT: pt never had done; obtained at 24-28wks on 07/05 - abnormal 148; 3hr GTTwnl 07/26 - C/w NST q weekly // Velamentous cord insertion - Identified on follow up anatomy scan on 06/08 at 25wks - Counseled by MFPriscilla - Increased risk of growth restriction - EFW 2719 grams (33%ile) on 08/24 -Labor precautions and kick counts discussed and reviewed. -Follow up 09/14 for scheduled repeat CS with tubal Hiro Tamez DO Obstetrics and Gynecology documented in this encounter [facility] 09-06-2021 History of Presen t illness Narrative Mitzi Lawler is a 26 y.o. being seen today for her obstetrical visit. She is at 38w2d gestation. Patient reports occasional contractions. Denies headache, vision changes or RUQ pain. Denies vaginal bleeding, LOF or contractions. PACU Vitals 09/06/21 1338 BP: 105/69 Pulse: 77 Resp: 18 Temp: 98.3 F (36.8 C) SpO2: 97% PainSc: 5 PainLoc: Hip movement: active. NST: baseline 115bpm, moderate variability, pos accels, no decels, no contractions - overall reactive and reassuring FH: 39 cm Pelvic Exam: /-4 Assessment/Plan: 26 y.o. with IUP at 38w2d Labs: -OB panel: records requested from [place] 04/11, never received; B-, antibody negative, hgb 11.3 on 07/05, Rubella immune, negative infectious labs -Genetic studies: declines -Anatomy US: level 2 due to history of unknown psychiatric meds at beginning of , 04/27 wnl but incomplete, EFW 51%; repeat scan 06/08 complete and wnl, EFW 50%, velamentous cord insertion noted -Flu vaccine: declines -COVID vaccine: partially vaccinated, Pfizer -Abnormal 1 hr GTT: 148; 3hr GTT wnl 07/26 -Tdap: given 06/21 -Rhogam: given 07/05 -GBS positive PATIENCE: 09/19/21 by 19 wk US that is consistent with pt's reported due date based on 1st trimester US done in [place] Route of delivery: repeat CS with tubal scheduled 09/14 risk factors: // EJ at 17 wks - Moved back to [place] from [place] - Was visiting one of her children in [place] but plans to deliver here - Records requested from [place], never received - labs and cultures obtained 05/09 // Hx CS x 2 - First for intolerance - Second scheduled repeat - Discussed vs RCS, pt initially wanted TOLAC but changed her mind 07/25 to repeat CS due to velamentous cord insertion - calculator 41.6% - For repeat CS at 39wks - scheduled 09/14 // Desires permanent sterilization - Tubal consent signed 08/08 // Bipolar depression, PTSD - Hx 3 hospitalizations in 2019 for psychotic break - Hx lamictal and other unknown psychiatric medications, stopped when she found out she was - Currently taking zoloft 50mg with minimal improvement in symptoms - Referral placed to behavioral health, reminded pt 05/09; new referral order placed 06/06; provided pt phone number to schedule 08/08 - level 2 anatomy US complete and wnl // Rh Negative - Antibody screen negative 07/05 - s/p rhogam (07/05/2021) // Tobacco - was smoking 2 PPD at beginning of - Cut back to 0.25 PPD currently - C/w NST q weekly // Class 3 Obesity - BMI 44 - Recommend eating a variety of of foods each and every day - Recommend a weight gain of 11-20lbs the entire - Explained that obesity is associated with multiple and maternal complications including but not limited to , growth restriction, macrosomia and - Early 1 hr GTT: pt never had done; obtained at 24-28wks on 07/05 - abnormal 148; 3hr GTTwnl 07/26 - C/w NST q weekly // Velamentous cord insertion - Identified on follow up anatomy scan on 06/08 at 25wks - Counseled by MFM - Increased risk of growth restriction - EFW 2719 grams (33%ile) on 08/24 -Labor precautions and kick counts discussed and reviewed. -Follow up 09/14 for scheduled repeat CS with tubal Hiro Tamez DO Obstetrics and Gynecology documented in this encounter [facility] 08-30-2021 History of Presen t illness Narrative Return OB visit Ms. Mitzi Lawler is at 37w2d PT denies c/o. +NST in office. She denies vaginal bleeding/leaking of fluid/cramps. + movement. A complete review of systems was performed and is negative except for what is listed in the HPI. Vitals: 08/30/21 1320 BP: 116/77 BP Location: Left arm Patient Position: Sitting BP Cuff Size: X-large Adult Pulse: 85 Resp: 18 Temp: 97.9 F (36.6 C) TempSrc: Infrared SpO2: 98% Weight: 106.1 kg (234 lb) Gen:NAD Neuro: grossly intact, alert, oriented Resp: unlabored Abd: soft, non-tender, FH =37 cm FHTs: NST Cervix:n/a Assessment/Plan Diagnoses and all orders for this visit: Velamentous insertion of umbilical cord, antepartum Tobacco smoking affecting , antepartum Rh negative, antepartum History of Obesity affecting , antepartum 37 weeks gestation of S/s of PTL/SAB given. [facility] rev'd. Patient to follow up in 1 week. Pt verbalized understanding. documented in this encounter [facility] 08-24-2021 History of Presen t illness Narrative Routine Antepartum Progress Note Subjective: Mitzi Lawler is a 26 y.o. @36/2 weeks gestation by 19/3 week ultrasound (completed on 04/27/2022) who presents for routine care. No acute complaints and/or concern. Patient denies vaginal bleeding, leakage of fluid, urinary symptoms and regular contractions. She reports positive movement. Objective: PACU Vitals 08/24/21 0929 BP: 105/71 Pulse: 87 SpO2: 97% Physical Exam General: No acute distress, alert and oriented x3 Abdomen: Soft, non-tender, gravid uterus measuring appropriately for gestational age, fundal height 41cm SVE: declined FHT: 156 bpm Labs: GBS/GC/Chl Assessment: Mitzi Lawler is a 26 y.o. @36/2 weeks gestation by 19/3 week ultrasound (completed on 04/27/2022) who presents for routine care. Plan: // Routine Care - Patient doing well overall - kick counts reviewed - labor precautions given - Unable to perform NST today given childcare concerns; will schedule next week - GBS/GC/Chl collected today - Recommend Follow up for routine care in 1 week // EJ at 17 wks - Moved back to [place] from [place] - Was visiting one of her children in [place] but plans to deliver here - Records requested from [place], never received - labs and cultures obtained 05/09 // Hx CS x 2 - First for intolerance - Second scheduled repeat - Discussed vs RCS, pt initially wanted TOLAC but changed her mind 07/25 to repeat CS due to velamentous cord insertion - calculator 41.6% - For repeat CS at 39wks // Desires permanent sterilization - Tubal consent signed 08/08 // Bipolar depression, PTSD - Hx 3 hospitalizations in 2019 for psychotic break - Hx lamictal and other unknown psychiatric medications, stopped when she found out she was - Currently taking zoloft 50mg with minimal improvement in symptoms - Referral placed to behavioral health, reminded pt 05/09; new referral order placed 06/06; provided pt phone number to schedule 08/08 - level 2 anatomy US complete and wnl // Rh Negative - Antibody screen negative 07/05, - s/p rhogam (07/05/2021) // Tobacco - was smoking 2 PPD at beginning of - Cut back to 0.25 PPD currently - C/w NST q weekly // Class 3 Obesity - BMI 44 - Recommend eating a variety of of foods each and every day - Recommend a weight gain of 11-20lbs the entire - Explained that obesity is associated with multiple and maternal complications including but not limited to , growth restriction, macrosomia and - Early 1 hr GTT: pt never had done; obtained at 24-28wks on 07/05 - abnormal 148; 3hr GTTwnl 07/26 - C/w NST q weekly // Velamentous cord insertion - Identified on follow up anatomy scan on 06/08 at 25wks - Counseled by MFM - Increased risk of growth restriction - EFW 2719 grams (33%, 08/24) Hallie Steinberg M.D. documented in this encounter [facility] 08-17-2021 Evaluation + Plan note Associated Problem(s): Oral thrush Nystatin swish and swallow sent [facility] 08-17-2021 Miscellaneous Notes Associated Problem(s): Oral thrush Nystatin swish and swallow sent documented in this encounter [facility] 08-17-2021 History of Presen t illness Narrative Chief Complaint Patient presents with OB problem visit Pt c/o possible thrush. C/o tongue is white and painful to eat and talk. Pt is unable to give urine sample at this time. Ms. Mitzi Lawler is at 35w2d C/o thrush ; states it hurts to talk or eat, painful when sleeping. She denies vaginal bleeding/leaking of fluid/cramps. good movement. Vitals: 08/17/21 1316 BP: 108/68 BP Location: Right arm Patient Position: Sitting BP Cuff Size: X-large Adult Pulse: 88 Temp: 97.9 F (36.6 C) TempSrc: Infrared SpO2: 96% Weight: 104.1 kg (229 lb 6.4 oz) Height: 5' 2 Gen:NAD Neuro: grossly intact, alert, oriented Tongue: white coating FHTs: 142 Assessment/Plan Problem List Items Addressed This Visit Digestive Oral thrush - Primary Nystatin swish and swallow sent Relevant Medications magic mouthwash w/ nystatin susp equal parts viscous lidocaine 2%, diphenhydramine 12.5mg/5mL, maalox [id number]-04ep/5mL, nystatin 100,000unit/mL Syed Sterling CNP documented in this encounter [facility] 08-12-2021 Telephone encounter Note Pt advised. [facility] 08-12-2021 Miscellaneous Notes Pt advised. Pt LVM via nurse line requesting refill. documented in this encounter [facility] 08-12-2021 Telephone encounter Note Pt LVM via nurse line requesting refill. [facility] 08-09-2021 History of Presen t illness Narrative Repeat C/section and Tubal scheduled for 09/14/21. documented in this encounter [facility] 08-08-2021 Instructions Hiro Tamez DO - 08/08/2021 2:35 PM EDT She can call [facility]'s number at [phone] and [facility] at [phone]. documented in this encounter [facility] 08-08-2021 History of Presen t illness Narrative Mitzi Lawler is a 26 y.o. being seen today for her obstetrical visit. She is at 34w0d gestation. Patient reports occasional contractions. Also admits that she would like to discuss increasing her zoloft since she feels it's not working that well for her anymore. Pt has not yet contacted behavioral health with the referrals we previously placed. Denies concerns for harming herself or others at this time. Denies headache, vision changes or RUQ pain. Denies vaginal bleeding, LOF. PACU Vitals 08/08/21 1417 BP: 114/75 Pulse: 85 Resp: 18 Temp: 98.4 F (36.9 C) SpO2: 97% PainSc: 3 PainLoc: Abdomen movement: active. FHT by doppler: 137bpm FH: 35 cm Assessment/Plan: 26 y.o. with IUP at 34w0d Labs: -OB panel: records requested from [place] 04/11, never received; B-, antibody negative, hgb 11.3 on 07/05, Rubella immune, negative infectious labs -Genetic studies: declines -Anatomy US: level 2 due to history of unknown psychiatric meds at beginning of , 04/27 wnl but incomplete, EFW 51%; repeat scan 06/08 complete and wnl, EFW 50%, velamentous cord insertion noted -Flu vaccine: declines -COVID vaccine: partially vaccinated, Pfizer -Early 1 hr GTT: pt never had done; obtained at 24-28wks on 07/05 - abnormal 148; 3hr GTTwnl 07/26 -Tdap: given 06/21 -Rhogam: given 07/05 PATIENCE: 09/19/21 by pt reported 1st trimester US consistent with 19 wk US Route of delivery: repeat CS risk factors: // EJ at 17 wks - Moved back to [place] from [place] - Was visiting one of her children in [place] but plans to deliver here - Records requested from [place], never received - labs and cultures obtained 05/09 // Hx CS x 2 - First for intolerance - Second scheduled repeat - Discussed vs RCS, pt initially wanted TOLAC but changed her mind 07/25 to repeat CS due to velamentous cord insertion - calculator 41.6% - For repeat CS at 39wks // Desires permanent sterilization - Tubal consent signed 08/08 - Discussed that tubal ligation should be considered permanent, irreversible surgery and if she ever desires fertility again she should choose another method. Discussed that no method of control is 100% effective, and if she were to show signs of , she should take a test. The risks include a 1% chance of failure, a 30% chance of ectopic when conception does occur, damage to surrounding structures, anesthesia complications, infection, and bleeding. This procedure should be considered permanent given the difficulty and ineffectiveness of reversal procedures. There is a large risk of regret, especially in women who are 30 years old and younger and who have fewer children. Counseled on alternative forms of contraception including long-acting reversible contraceptives, control pills, DMPA, and male vasectomy. Discussed life-threatening complications of ectopic , and increased risk of ectopic after tubal ligation if she were to have a . She knows to take a test, and call us if it is positive, after a tubal ligation. Methods of tubal ligation including coagulation, clips, and salpingectomy were discussed. Bilateral salpingectomy was also discussed with the patient, with the major risk being absolute inability to reverse the procedure, but the benefits being a decreased risk of ovarian and fallopian tube cancers and failure, and the major benefit of permanent sterilization is prevention of unwanted . Patient understands and wishes to proceed. Consent signed. // Bipolar depression, PTSD - Hx 3 hospitalizations in 2019 for psychotic break - Hx lamictal and other unknown psychiatric medications, stopped when she found out she was - Currently taking zoloft 50mg with minimal improvement in symptoms - Referral placed to behavioral health, reminded pt 05/09; new referral order placed 06/06; provided pt phone number to schedule 08/08 - level 2 anatomy US complete and wnl // Rh incompatibility - Reports receiving rhogam in past pregnancies - B-, antibody negative - Antibody screen negative 07/05, rhogam given // Tobacco - was smoking 2 PPD at beginning of - Cut back to 0.25 PPD currently - Counseled on smoking cessation due to it's associated risks, which include but aren't limited to: placental abnormalities (placental abruption, placenta previa), premature rupture of membranes, delivery, growth restriction, low weight, preeclampsia and / including sudden infant syndrome and stillbirth. - cannot tolerate nicotine patch and would prefer to continue to cut back - NSTs at 36 wks // Obesity - BMI 44 - Recommend eating a variety of of foods each and every day - Recommend a weight gain of 11-20lbs the entire - Explained that obesity is associated with multiple and maternal complications including but not limited to , growth restriction, macrosomia and - Early 1 hr GTT: pt never had done; obtained at 24-28wks on 07/05 - abnormal 148; 3hr GTTwnl 07/26 // Velamentous cord insertion - Identified on follow up anatomy scan on 06/08 at 25wks - Counseled by MFM - Increased risk of growth restriction - Growth US 07/25 42%ile, EFW wnl - Follow up growth US in 4 weeks, scheduled 08/22 kick counts reviewed. labor precautions discussed. GBS at 36 weeks. Staff message sent to surgical instrument maker to schedule repeat CS around 39wks, anticipate on 09/14 at 39w2d per pt request Follow up in 2 weeks for return OB and NST Hiro Tamez DO Obstetrics and Gynecology documented in this encounter [facility] 07-25-2021 History of Presen t illness Narrative Mitzi Lawler is a 26 y.o. being seen today for her obstetrical visit. She is at 32w0d gestation. Patient reports no complaints. Denies headache, vision changes or RUQ pain. Denies vaginal bleeding, LOF or contractions. PACU Vitals 07/25/21 1417 BP: 108/72 Pulse: 91 Resp: 16 Temp: 98.1 F (36.7 C) SpO2: 97% PainSc: 0-No pain movement: active. FHT by doppler: 155bpm Assessment/Plan: 26 y.o. with IUP at 32w0d Labs: -OB panel: records requested from [place] 04/11, never received; B-, antibody negative, hgb 11.3 on 07/05, Rubella immune, negative infectious labs -Genetic studies: declines -Anatomy US: level 2 due to history of unknown psychiatric meds at beginning of , 04/27 wnl but incomplete, EFW 51%; repeat scan 06/08 complete and wnl, EFW 50%, velamentous cord insertion noted -Flu vaccine: declines -COVID vaccine: partially vaccinated, Pfizer -Early 1 hr GTT: pt never had done; plan to obtain at 24-28wks, pt still hasn't completed; drawn 07/05 - abnormal 148, 3hr GTT ordered, scheduled 07/26 per pt -Tdap: given 06/21 -Rhogam: given 07/05 risk factors: // EJ at 17 wks - Moved back to [place] from [place] - Was visiting one of her children in [place] but plans to deliver here - Records requested from [place], never received - labs and cultures obtained 05/09 // Hx CS x 2 - First for intolerance - Second scheduled repeat - Discussed vs RCS, pt initially wanted TOLAC but changed her mind 07/25 to repeat CS due to velamentous cord insertion - calculator 41.6% - Schedule repeat CS for 39 wks at next visit // Bipolar depression, PTSD - Hx 3 hospitalizations in 2019 for psychotic break - Hx lamictal and other unknown psychiatric medications, stopped when she found out she was - Currently taking zoloft 50mg with minimal improvement in symptoms - Referral placed to behavioral health, reminded pt 05/09; new referral order placed 06/06 as pt no longer has the contact information - level 2 anatomy US // Rh incompatibility - Reports receiving rhogam in past pregnancies - B-, antibody negative - Antibody screen negative 07/05, rhogam given // Tobacco - was smoking 2 PPD at beginning of - Cut back to 0.5 PPD currently - Counseled on smoking cessation due to it's associated risks, which include but aren't limited to: placental abnormalities (placental abruption, placenta previa), premature rupture of membranes, delivery, growth restriction, low weight, preeclampsia and / including sudden infant syndrome and stillbirth. - cannot tolerate nicotine patch and would prefer to continue to cut back - NSTs at 36 wks // Obesity - BMI 44 - Recommend eating a variety of of foods each and every day - Recommend a weight gain of 11-20lbs the entire - Explained that obesity is associated with multiple and maternal complications including but not limited to , growth restriction, macrosomia and - Recommend early 1hr GCT, pt never had done; plan to obtain at 24-28wks, drawn 07/05 - abnormal 148, 3hr GTT ordered, pt reports this is scheduled 07/26 // Velamentous cord insertion - Identified on follow up anatomy scan on 06/08 at 25wks - Counseled by MFM - Increased risk of growth restriction - Growth US 07/25 42%ile, EFW wnl - Follow up growth US in 4 weeks // Breech malpresentation - Seen on US at 32 wks on 07/25 - Follow up US at 36 wks for presentation, pt no longer interested in TOLAC as of 07/25 and desires repeat CS kick counts reviewed. labor precautions discussed. Follow up in 2 weeks. Hiro Tamez DO Obstetrics and Gynecology documented in this encounter [facility] 07-05-2021 History of Presen t illness Narrative Mitzi Lawler is a 26 y.o. being seen today for her obstetrical visit. She is at 29w1d gestation. Patient reports no complaints. Denies headache, vision changes or RUQ pain. Denies vaginal bleeding, LOF or contractions. PACU Vitals 07/05/21 1129 BP: 107/73 Pulse: 99 Resp: 16 Temp: 98.4 F (36.9 C) SpO2: 94% PainSc: 0-No pain movement: active. FHT by doppler: 138bpm FH: 29 cm Assessment/Plan: 26 y.o. with IUP at 29w1d Labs: -OB panel: records requested from [place] 04/11, never received; B-, antibody negative, hgb 12.7 on 05/09, Rubella immune, negative infectious labs -Genetic studies: declines -Anatomy US: level 2 due to history of unknown psychiatric meds at beginning of , 04/27 wnl but incomplete, EFW 51%; repeat scan 06/08 complete and wnl, EFW 50%, velamentous cord insertion noted -Flu vaccine: declines -COVID vaccine: partially vaccinated, Pfizer -Early 1 hr GTT: pt never had done; plan to obtain at 24-28wks, pt still hasn't completed; drawn 07/05 -Tdap: given 06/21 -Rhogam: given 07/05 risk factors: // EJ at 17 wks - Moved back to [place] from [place] - Was visiting one of her children in [place] but plans to deliver here - Records requested from [place], never received - labs and cultures obtained 05/09 // Hx CS x 2 - First for intolerance - Second scheduled repeat - Discussed vs RCS, pt states she would really like to experience labor - calculator 41.6% - Discussed risks/benefits, pt desires TOLAC // Bipolar depression, PTSD - Hx 3 hospitalizations in 2019 for psychotic break - Hx lamictal and other unknown psychiatric medications, stopped when she found out she was - Currently taking zoloft 50mg with minimal improvement in symptoms - Referral placed to behavioral health, reminded pt 05/09; new referral order placed 06/06 as pt no longer has the contact information - level 2 anatomy US // Rh incompatibility - Reports receiving rhogam in past pregnancies - B-, antibody negative - Antibody screen ordered 06/06 - Rhogam injection at next appt // Tobacco - was smoking 2 PPD at beginning of - Cut back to 0.5 PPD currently - Counseled on smoking cessation due to it's associated risks, which include but aren't limited to: placental abnormalities (placental abruption, placenta previa), premature rupture of membranes, delivery, growth restriction, low weight, preeclampsia and / including sudden syndrome and stillbirth. - cannot tolerate nicotine patch and would prefer to continue to cut back - NSTs at 36 wks // Obesity - BMI 44 - Recommend eating a variety of of foods each and every day - Recommend a weight gain of 11-20lbs the entire - Explained that obesity is associated with multiple and maternal complications including but not limited to , growth restriction, macrosomia and - Recommend early 1hr GCT, pt never had done; plan to obtain at 24-28wks, drawn 07/05 // Velamentous cord insertion - Identified on follow up anatomy scan on 06/08 at 25wks - Counseled by MFM - Increased risk of growth restriction - Growth US in 6 wks (around 07/20) kick counts reviewed. labor precautions discussed. GBS at 36 weeks Follow up in 2 weeks. Hiro Tamez DO Obstetrics and Gynecology documented in this encounter [facility] 05-20-2021 History of Presen t illness Narrative Pt states son recently recovered from Bronchitis and she may have contracted it HPI Chief Complaint Patient presents with Cough HPI Patient presents to the ER with her son for evaluation. Mother started having a cough 3 days ago with stuffy nose and sneezing. She is approximately 23 weeks and follows up at [facility]. Her next appointment is not until June 06. She has no concerning signs related to her today. Denies abdominal pain, vaginal bleeding. Denies any fever chest pain or shortness of breath. Nonproductive cough. She did take a dose of Tylenol but denies any other recent antibiotics. Denies any other symptoms at this time. She is not Covid vaccinated No data recorded Patient History Past Medical History: Diagnosis Date Anxiety Bipolar depression (CMS/HCC) Depression Manic depression (CMS/HCC) Post depression Suicidal ideations feb and Mar [address] [facility] Past Surgical History: Procedure Laterality Date SECTION, LOW TRANSVERSE CHOLECYSTECTOMY EAR TUBE REMOVAL 2003 FINGER 5TH DIGIT LT (LITTLE) 2003 finger reattached TONSILLECTOMY ADENOIDECTOMY, BILATERAL MYRINGOTOMY AND TUBES 2003 No family history on file. Social History Tobacco Use Smoking status: Current Every Day Smoker Packs/day: 0.50 Types: Cigarettes Smokeless tobacco: Never Used Tobacco comment: pt is in process of quiting Vaping Use Vaping Use: Never used Substance Use Topics Alcohol use: Not Currently Drug use: Never Review of Systems Review of Systems Physical Exam ED Triage Vitals [05/20/21 1459] Temp Heart Rate Resp BP 36.6 C (97.9 F) 94 17 97/66 SpO2 Temp Source Heart Rate Source Patient Position 96 % Oral -- -- BP Location FiO2 (%) -- -- Physical Exam PHYSICAL EXAM: CONSTITUTIONAL: Well-appearing. Well-hydrated. HEAD: Normocephalic, atraumatic. EYES: No conjunctival injection, no icterus. EARS: External ears appear normal. NOSE: Nose appears normal. NECK: Trachea is midline. RESPIRATORY: Normal chest excursion with respiration, no stridor. No rales, rhonchi or wheezes. CARDIOVASCULAR: Regular rate and rhythm. No murmur, rub or gallop. No LE edema GASTROINTESTINAL: Abdomen is soft and nontender. No rebound or guarding. No masses NEUROLOGICAL: Awake, alert and oriented. Neurologically nonfocal. PSYCHOLOGICAL: The patient's mood and manner are appropriate. INTEGUMENTARY: Skin is warm and dry. No evidence of rash. MUSCULOSKELETAL: No deformity x 4 ED Course & MDM MDM Dr. Albin Doan is my supervising physician Patient presents to the ER with a 3-day history of cough. Her son was just diagnosed with bronchitis earlier this month and finished antibiotics 3 days ago. Patient is approximately 23 weeks . She is not Covid vaccinated. She has no concerning signs related to her . Her vital signs were normal and stable. She was not hypoxic or tachycardic. She was afebrile. Covid swab was obtained in triage. This resulted as positive. I printed a copy for the patient to have on record. Discussed with the patient is very important she needs to rest, increase fluids to prevent dehydration and take Tylenol as needed for fever pain, stay away from NSAIDs. We will give her robitussin for cough. She is on day 3 of symptoms and needs to quarantine for another week. If she has any worsening symptoms she needs to return immediately back to the ER. Monitor her pulse ox. Patient is otherwise stable and agrees with plan. Her next appointment is not until June 06 with her EVENT MARKETING INTERN. IMPRESSION 1)acute covid 19 Procedures KIMMY Sharp 05/20/21 1657 documented in this encounter [facility] 05-20-2021 Hospital Discharg e instructions Janet Weeks PA - 05/20/2021 You can take over the counter robitussin for congestion/cough . You do not need a prescription for this You are on day 3 of symptoms. You must quarantine for another 7 days Continue rest, fluids, tylenol for fever or body aches. The following attachments cannot be sent through Care Everywhere.Coronavirus Disease (COVID-19): General Info (South Korean)documented in this encounter [facility] 05-09-2021 History of Presen t illness Narrative Mitzi Lawler is a 25 y.o. being seen today for her obstetrical visit. She is at 21w0d gestation. Patient reports occasional nausea. Denies headache, vision changes or RUQ pain. Denies vaginal bleeding, LOF or contractions. PACU Vitals 05/09/21 1029 BP: 103/70 Pulse: 95 Resp: 16 Temp: 98.5 F (36.9 C) SpO2: 97% PainSc: 0-No pain movement: active. FHT by doppler: 140 FH: 21 cm Vaginal cultures and pap smear collected Assessment/Plan: 25 y.o. with IUP at 21w0d Rx for unisom/B6 provided Refilled zoloft PATIENCE : 09/19/2021, by pt reported first trimester US in [place] equal to 19 wk US performed 04/27 (pt not certain of LMP) Delivery Mode: desires TOLAC Labs: -OB panel: records requested from [place] 04/11, never received; labs and cultures obtained 05/09 -Genetic studies: declines -Anatomy US: level 2 due to history of unknown psychiatric meds at beginning of , 04/27 wnl but incomplete, EFW 51%; repeat scan scheduled 06/08 -Flu vaccine: declines -COVID vaccine: partially vaccinated, Pfizer -Early 1 hr GTT: pt never had done; plan to obtain at 24-28wks risk factors: // EJ at 17 wks - Moved back to [place] from [place] - Was visiting one of her children in [place] but plans to deliver here - Records requested from [place], never received - labs and cultures obtained 05/09 // Hx CS x 2 - First for intolerance - Second scheduled repeat - Discussed vs RCS, pt states she would really like to experience labor not on pitocin - calculator 41.6% - Discussed risks/benefits, pt desires TOLAC // Bipolar depression, PTSD - Hx 3 hospitalizations in 2019 for psychotic break - Hx lamictal and other unknown psychiatric medications, stopped when she found out she was - Currently taking zoloft 50mg with minimal improvement in symptoms - Referral placed to behavioral health, reminded pt 05/09 - level 2 anatomy US // Rh incompatibility - Reports receiving rhogam in past pregnancies - ABO pending, labs requested // Tobacco - was smoking 2 PPD at beginning of - Cut back to 0.5 PPD currently - Counseled on smoking cessation due to it's associated risks, which include but aren't limited to: placental abnormalities (placental abruption, placenta previa), premature rupture of membranes, delivery, growth restriction, low weight, preeclampsia and / including sudden infant syndrome and stillbirth. - cannot tolerate nicotine patch and would prefer to continue to cut back - NSTs at 36 wks // Obesity - BMI 44 - Recommend eating a variety of of foods each and every day - Recommend a weight gain of 11-20lbs the entire - Explained that obesity is associated with multiple and maternal complications including but not limited to , growth restriction, macrosomia and - Recommend early 1hr GCT, ordered 04/11, reminded 05/09 - 1hr GTT at 24-28wks Follow up in 4 weeks. Hiro Tamez DO Obstetrics and Gynecology documented in this encounter [facility] 04-26-2021 History of Presen t illness Narrative Labs reviewed and GC/cT/trich negative documented in this encounter [facility] 04-24-2021 History of Presen t illness Narrative Went over discharge paperwork with pt. Went over education. Answered all questions and pt got dressed and left unit Had first dose beginning of 2020, had bad reaction , doctor advised to not get second dose. Pt got biotech documented in this encounter [facility] 04-24-2021 History and physical note OB Triage Note/H&P SUBJECTIVE: Mitzi Lawler is a 25 y.o. at 18w6d PNC: adequate care with [facility] Complications: No complications identified. Chief Compliant: Chief Complaint Patient presents with Blood in Urine HPI: PT presents to triage with c/o blood in her urine in the toilet around 2 hours prior to arrival. Denies blood when wiping or on her pants (doesn';t wear underwear . Denies LOF and states she doesn't think its coming from her vagina. Denies regular abdominal pain. States + movement. Has US appt on 04/27 Review of Systems Pertinent items are noted in HPI. Past Medical History Obstetrical History OB History Para Term AB Living 4 2 2 1 2 SAB TAB Ectopic Multiple Live Births 1 2 # Outcome Date GA Lbr Lance/2nd Weight Sex Delivery Anes PTL Lv 4 Current 3 SAB 05/28/20 2 Term 11/20/16 M CS-LTranv N CELINA 1 Term 06/19/13 40w0d M CS-LTranv N CELINA Gynecologic History Hx of STI: Not addressed Past Medical History Past Medical History: Diagnosis Date Anxiety Bipolar depression (CMS/HCC) Depression Manic depression (CMS/HCC) Post depression Suicidal ideations feb and Mar [address] [facility] Past Surgical History Past Surgical History: Procedure Laterality Date SECTION, LOW TRANSVERSE CHOLECYSTECTOMY EAR TUBE REMOVAL 2003 FINGER 5TH DIGIT LT (LITTLE) 2004 finger reattached TONSILLECTOMY ADENOIDECTOMY, BILATERAL MYRINGOTOMY AND TUBES 2003 Family History No family history on file. Medications Prior to Admission medications Medication Sig Start Date End Date Taking? Authorizing Provider magnesium oxide (MAG-OX) 400 mg magnesium tablet Take 400 mg by mouth 1 (one) time each day. Yes Historical Provider, vitamin iron fum-folic acid 27-1 mg per tablet Take 1 tablet by mouth 1 (one) time each day. Yes Historical Provider, Allergies Allergies Allergen Reactions Amoxicillin Anaphylaxis Ampicillin Anaphylaxis Penicillins Anaphylaxis Morphine Sleep Issues Pt states when given morphine knocks her out for hours does not want Social History She reports that she has been smoking cigarettes. She has been smoking about 0.50 packs per day. She does not have any smokeless tobacco history on file. She reports previous alcohol use. She reports that she does not use drugs. OBJECTIVE: Vitals Visit Vitals BP 110/67 Pulse 91 Temp 36.7 C (98 F) (Oral) Resp 16 Physical Exam HEENT: Normocephalic with no apparent abnormal findings NECK: supple, no significant adenopathy LUNGS: unlabored, regular HEART: regular rate and rhythm GASTROINTESTINAL: Abdomen: soft, gravid, non-tender Anus/rectum: no masses or abnormalities RENAL: not examined EXTREMITIES: no edema NEUROLOGIC: alert & oriented x 3 OB EXAM: FHTs 143 per doppler, TOCO: none EXERCISE SCIENCE INSTRUCTOR: Vagina: normal appearing vagina with normal color and discharge and no lesions noted. Cervix: visually closed Perineum: normal SPECULUM EXAM: Pooling: no Bleeding: no Cultures collected: gonorrhea, trichomoniasis and chlamydia prior to exam ASSESSMENT AND PLAN: Mitzi Lawler is a 25 y.o. at 18w6d No evidence of vaginal bleeding or hematuria Reassuring FHT UA negative GC/CT/trich Discussed when to return Discussed with Dr. Scott and agrees D/c home documented in this encounter [facility] 04-24-2021 Hospital Discharg e instructions Mitzi Dudley RN - 04/24/2021 Images from the original note were not included. Blood in the Urine: Care Instructions Your Care Instructions Blood in the urine, or hematuria, may make the urine look red, brown, or pink. There may be blood every time you urinate or just from time to time. You cannot always see blood in the urine, but it will show up in a urine test. Blood in the urine may be serious. It should always be checked by a doctor. Your doctor may recommend more tests, including an X-ray, a CT scan, or a cystoscopy (which lets a doctor look inside the urethra and bladder). Blood in the urine can be a sign of another problem. Common causes are bladder infections and kidney stones. An injury to your groin or your genital area can also cause bleeding in the urinary tract. Very hard exercise such as running a marathon can cause blood in the urine. Blood in the urine can also be a sign of kidney disease or cancer in the bladder or kidney. Many cases of blood in the urine are caused by a harmless condition that runs in families. This is called benign familial hematuria. It does not need any treatment. Sometimes your urine may look red or brown even though it does not contain blood. For example, not getting enough fluids (dehydration), taking certain medicines, or having a liver problem can change the color of your urine. Eating foods such as beets, rhubarb, or blackberries or foods with red food coloring can make your urine look red or pink. Follow-up care is a bell part of your treatment and safety. Be sure to make and go to all appointments, and call your doctor if you are having problems. It's also a good idea to know your test results and keep a list of the medicines you take. When should you call for help? Call your doctor now or seek immediate medical care if: You have symptoms of a urinary infection. For example: ? You have pus in your urine. ? You have pain in your back just below your rib cage. This is called flank pain. ? You have a fever, chills, or body aches. ? It hurts to urinate. ? You have groin or belly pain. You have more blood in your urine. Watch closely for changes in your health, and be sure to contact your doctor if: You have new urination problems. You do not get better as expected. Where can you learn more? Go to https://www.Alorica.BlooBox/tyler itymychart Enter N871 in the search box to learn more about Blood in the Urine: Care Instructions. Current as of: July 07, 2020 Content Version: 13.0 [employer]board. Care instructions adapted under license by your healthcare professional. If you have questions about a medical condition or this instruction, always ask your healthcare professional. [employer] disclaims any warranty or liability for your use of this information. documented in this encounter [facility] 04-11-2021 History of Presen t illness Narrative INITIAL VISIT Patient Name: Mitzi Lawlre : 1995 MR #: [id number] Mitzi Lawler is a 25 y.o. at 17w0d gestation here today for her first obstetrical visit. Patient's last menstrual period was 12/09/2020 (within weeks). This is not a planned . Her prior obstetrical history is significant for obesity and smoker. Patient is taking a PNV. Patient does intend to breast feed. Her previous history: Breast first child for 11 months, Second child for 2 yrs. history fully reviewed. Obstetrical History OB History Para Term AB Living 4 2 2 0 1 2 SAB IAB Ectopic Multiple Live Births 1 0 0 0 2 # Outcome Date GA Lbr Lance/2nd Weight Sex Delivery Anes PTL Lv 4 Current 3 SAB 06/25/20 6w4d SAB Comments: D & C completed 2 Term 11/20/16 39w0d 3.345 kg (7 lb 6 oz) M CS-Unspec EPI N CELINA Comments: Planned C Section Name: Lolis 1 Term 12/17/13 40w3d 3.856 kg (8 lb 8 oz) M CS-Unspec Spinal N CELINA Comments: Pit dec, Section due to intolerance to labor Complications: Intolerance Name: Yovana Gynecologic History Denies STIs Denies abnormal pap smears Date of last PAP: 2020 Past Medical History Past Medical History: Diagnosis Date Alcoholism ([facility]) Anemia Chronic, trying to find fe supplement she can tolerate Anxiety Bipolar depression ([facility]) Depression MDD Manic depression ([facility]) Post depression [id number] Psychosis ([facility]) Pt reports she has had 3 psychotic breaks (all in 2019). Was in a psych institution ([facility]) PTSD (post-traumatic stress disorder) Rh incompatibility Substance abuse ([facility]) Marijuana, has not used for 4 years Trauma Varicella Past Surgical History Past Surgical History: Procedure Laterality Date SECTION, LOW TRANSVERSE x2 CHOLECYSTECTOMY EAR TUBE REMOVAL TONSILLECTOMY AND ADENOIDECTOMY WISDOM TOOTH EXTRACTION Medications Current Outpatient Medications: vit no.124/iron/folic ( VITAMIN ORAL), Take by mouth ., Disp: , Rfl: sertraline (ZOLOFT) 50 MG tablet, Take 50 mg by mouth daily ., Disp: , Rfl: Allergies Allergies Allergen Reactions Penicillins Anaphylaxis All cillins Bupropion Other reaction(s): Vomiting Cefprozil Itching Family History Family History Problem Relation Age of Onset No Known Problems Paternal Grandfather Lung cancer Paternal Grandmother Other (broken heart syndrome) Maternal Grandmother No Known Problems Maternal Grandfather Alcohol abuse Father Kidney failure Father Liver disease Father Gout Father Depression Father Depression Mother Depression Brother Anxiety Brother Depression Sister Anxiety Sister Diabetes Sister Depression Brother Anxiety Brother Depression Brother Anxiety Brother Depression Brother Anxiety Brother Depression Sister Anxiety Sister Depression Sister Anxiety Sister Psychiatric hospitalization Sister Other (bipolar depression) Sister Social History Social History Socioeconomic History Marital status: Single Tobacco Use Smoking status: Current Every Day Smoker Packs/day: 0.50 Years: 12.00 Pack years: 6.00 Smokeless tobacco: Never Used Vaping Use Vaping Use: Former Substances: Nicotine Devices: Refillable tank Substance and Sexual Activity Alcohol use: Not Currently Comment: Have not heavily for 9 yrs, occassionally now. Drug use: Not Currently Types: Marijuana Comment: Have not used for 4 yrs Sexual activity: Yes Partners: Male control/protection: None Genetics Ethnicity is White. FOB's ethnicity is White (name=Denton Peraza). Denies family history of mental retardation, defects, cystic fibrosis or sickle cell trait or disease. Infectious History: Does have previous history of chicken pox. HSV history: Denies Partner HSV history: Denies Last flu shot: NO Tdap booster: YES COVID vaccine: Got first vaccine and reports she had an adverse reaction so her PCP advised her not to get the second dose Review of Systems Psychological ROS: negative Ophthalmic ROS: negative ENT ROS: positive for - headaches, vertigo, light headed and numbness in R leg and arm. Allergy and Immunology ROS: negative Hematological and Lymphatic ROS: negative Endocrine ROS: negative Breast ROS: negative Respiratory ROS: negative Cardiovascular ROS: negative Gastrointestinal ROS: negative Genito-Urinary ROS: positive for - pelvic pressure and Vaginal Pain Musculoskeletal ROS: positive for - pain in back - generalized & muscle cramps ACOG VISIT COUNSELING COMPLETED: A total of 45 minutes were spent face- to- face with patient during this encounter and over half of that time was spent on counseling and coordination of care. We discussed in depth the importance of all the things listed below. testing reviewed. Aneuploidy testing applicable for patient's age and gestational age discussed. risk factors assessed. risk factors as below. Nutrition and weight gain counseling discussed for BMI. Instructed patient on avoidance of cat litter/feces and raw meat. Handout provided on safe OTC medications to use while . Handout provided on food safety during . Counseled patient on foods to avoid such as unpasteruized soft cheeses and deli meat/hot dogs, and limiting mercury-containing fish consumption. Healthy balanced diet recommended. Sexual activity, seat belt use, and exercise during reviewed. Flu vaccine discussed. Tdap booster planned 3rd-trimester. Counseling done on nicotine, alcohol, and illicit drug use. Travel and work/environmental hazards reviewed. Lifting restrictions reviewed. Zika travel precautions discussed. Domestic violence screening done and negative. Childbirth classes and hospital information given to patient. Ultrasound indications reviewed. Benefits of and 10 steps reviewed. [facility] Guide given to patient. PACU Vitals 04/11/21 1017 BP: 110/75 Pulse: 82 SpO2: 97% FHTs: 140s via doppler Mitzi Lawler is a 25 y.o. at 17w0d gestation being seen today for her first obstetrical visit. PATIENCE : 09/19/2021, by Patient Reported Delivery Mode: RCS vs TOLAC Labs: -OB panel: records requested from [place] 04/11 -Genetic studies: declines -Anatomy US ordered 04/01, level 2 due to history of unknown psychiatric meds at beginning of -Flu vaccine: declines -COVID vaccine: partially vaccinated, Pfizer risk factors: // EJ at 17 wks - Moved back to [place] from [place] - Was visiting one of her children in [place] but plans to deliver here - Records requested from [place] // Hx CS x 2 - First for intolerance - Second scheduled repeat - Discussed vs RCS, pt states she would really like to experience labor not on pitocin - calculator 41.6% - Discussed risks/benefits, pt undecided on route of delivery at this time // Bipolar depression, PTSD - Hx 3 hospitalizations in 2019 for psychotic break - Hx lamictal and other unknown psychiatric medications, stopped when she found out she was - Currently taking zoloft 50mg without improvement in symptoms - Referral placed to behavioral health - level 2 anatomy US ordered // Rh incompatibility - Reports receiving rhogam in past pregnancies - ABO pending, labs requested // Tobacco - was smoking 2 PPD at beginning of - Cut back to 0.5 PPD currently - Counseled on smoking cessation due to it's associated risks, which include but aren't limited to: placental abnormalities (placental abruption, placenta previa), premature rupture of membranes, delivery, growth restriction, low weight, preeclampsia and / including sudden infant syndrome and stillbirth. - cannot tolerate nicotine patch and would prefer to continue to cut back - NSTs at 36 wks // Obesity - BMI 44 - Recommend eating a variety of of foods each and every day - Recommend a weight gain of 11-20lbs the entire - Explained that obesity is associated with multiple and maternal complications including but not limited to , growth restriction, macrosomia and - Recommend early 1hr GCT, ordered 04/11 Follow up in 4 weeks. Records requested from [place]. Will obtain any additional labs pending records received. Declines genetics. Hiro Tamez DO Obstetrics and Gynecology See Provider Note. documented in this encounter [facility] documented as of this encounter (statuses as of 01/10/2023) [facility]02-[facility] History of Past illness Narrative* Problem Noted Date Diagnosed Date Resolved Date Rh negative state in antepartum period 06/30/2020 11/05/2020 Tobacco use during , antepartum 06/24/2020 11/05/2020 Overview: 06/24/2020t smokes half a pack of cigarettes a day. Down from 1 pack/day. Discussed risks of smoking during . Advised pt to quit.TKRN with history of ce sarean section, antepartum 06/24/2020 11/05/2020 Overview: 06/24/2020t had 2 previous C sections in [place]. She desires a . I have asked her to obtain her operative report from her last delivery in [place]. I have also asked the patient to activate her MyChart and I will send her EMMIS on and . I have advised her to watch these EMMIs prior to her next appointment. TKRN Obesity during 03/2021 Overview: 06/24/2020atient is obese. We will plan on GCT at new OB. TKRN documented as of this encounter (statuses as of 01/15/2023) [facility] History of Past illness Narrative* Problem Noted Date Diagnosed Date Resolved Date Rh negative state in antepartum period 06/30/2020 11/05/2020 Tobacco use during , antepartum 06/24/2020 11/05/2020 Overview: 06/24/2020t smokes half a pack of cigarettes a day. Down from 1 pack/day. Discussed risks of smoking during . Advised pt to quit.TKRN with history of ce sarean section, antepartum 06/24/2020 11/05/2020 Overview: 06/24/2020t had 2 previous C sections in [place]. She desires a . I have asked her to obtain her operative report from her last delivery in [place]. I have also asked the patient to activate her MyChart and I will send her EMMIS on and . I have advised her to watch these EMMIs prior to her next appointment. TKRN Obesity during 03/2021 Overview: 06/24/2020atient is obese. We will plan on GCT at new OB. TKRN documented as of this encounter (statuses as of 01/17/2023) [facility] Diagnosis Encntr for suprvsn of normal preg, unsp, second trimester- Primary with 17 completed weeks gestation Bipolar depression (HCC) Bipolar I disorder, most recent episode (or current) depressed, unspecified Tobacco smoking affecting , antepartum Rh negative, antepartum History of Other postprocedural status Obesity affecting , antepartum documented in this encounter [facility]* Diagnosis Hematuria, gross Gross hematuria documented in this encounter [facility] note* Diagnosis Encntr for suprvsn of normal preg, unsp, second trimester- Primary with 21 completed weeks gestation documented in this encounter [facility] note* Diagnosis COVID-19- Primary documented in this encounter [facility] note* Diagnosis Encntr for suprvsn of normal preg, unsp, second trimester- Primary with 29 completed weeks gestation documented in this encounter [facility] note* Diagnosis Encounter for supervision of other normal in third trimester- Primary with 32 completed weeks gestation Abnormal glucose tolerance test (GTT) during , antepartum Encounter for ultrasound to assess interval growth of fetus 32 weeks gestation of [facility] Diagnosis Encounter for supervision of high risk in third trimester, antepartum- Primary with 34 completed weeks gestation Encounter for sterilization [facility] Diagnosis Oral thrush- Primary Candidiasis of mouth [facility]* Diagnosis 36 weeks gestation of - Primary Encounter for ultrasound to assess interval growth of fetus Encounter for screening for Streptococcus B Screening examination for venereal disease Tobacco smoking affecting in third trimester [facility] Diagnosis 37 weeks gestation of - Primary Velamentous insertion of umbilical cord, antepartum Tobacco smoking affecting , antepartum Rh negative, antepartum History of Other postprocedural status Obesity affecting , antepartum [facility] Diagnosis Encounter for supervision of high risk in third trimester, antepartum- Primary with 38 completed weeks gestation [facility] Diagnosis Encounter for supervision of high risk in third trimester, antepartum- Primary with 38 completed weeks gestation Dysuria [facility] Diagnosis S/P section- Primary Other postprocedural status S/P tubal ligation Tubal ligation status [facility] Diagnosis Burning with urination- Primary Dysuria documented [facility] this [facility] noteNYAP-NVEvaluation noteNYAP-NVEvaluation note NY[facility] Discharge Instructions * Instructions* Rajani Babin, STOCK MOVER - PRINT OPERATOR - 01/07/2020 Return to Work Form [facility] Emergency Department (ED) [] [facility] [phone] [x] [place] [phone] [] Carlos Enrique [phone] [] Steven Elias [phone] [] [place] [phone] *Show this Return to Work form to your work communications supervisor immediately. It is your employer's responsibility to determine if restrictions can be accommodated. Today's Date: 01/07/20 Patient Name: Mitzi Lawler : 1995 Employee may return to work with the following restrictions on (Date): 01/09/2020 [x] No use of RIGHT hand/arm/shoulder [x] No pushing greater than 5 pounds [x] No pulling greater than 5 pounds [x] No lifting greater than 5 pounds [x] Do not operate safety sensitive machinery [x] Keep bandage/splint clean and dry ED Provider Signature: Rajani Babin CNP Work injuries require treatment by a [facility] certified provider. If follow-up care is needed please call one of the [facility] locations below. Marlene Marcial: [phone], [place] [address] [place]: [phone] [address] [place] [address] [place]: [phone] [place] [address] [place]: [phone] [address], [place] [address] [place]: [phone], [place] [address] * Attachments The following attachments cannot be sent through Care Everywhere. * Shoulder Pain (South Korean) * Smoking Cessation: Health Benefits: General Info ([place] Korean) documented in this encounter Assessments Diagnosis Strain of right shoulder, initial encounter Current smoker Tobacco use disorder Summary Purpose Family History No Family History Records FoundNo Family History Records FoundNo Family History Records FoundNo Family History Records FoundNo Family History Records FoundNo Family History Records FoundNo Family History Records Found Advance Directives No Advanced Directives Records FoundDocuments on File Type Date Recorded Patient Peer Educator Expl anation Power of Boat Person Latest Code Status on File Code Status Date Activated Date Inactivated Comments Full Code - Default 04/24/2021 9:21 PM 04/25/2021 12:2 7 AM This is order is used when code status has not been discussed with the patient, or code status is otherwise unknown/unconfirmed To update the patient's code status, place a code status order. Do not modify or discontinue any currently active code status orders. Documents on File Type Date Recorded Patient Peer Educator Expl anation Advance Directives and Living Will Documents on File Type Date Recorded Patient Peer Educator Expl anation Advance Directives and Living Will Documents on File Type Date Recorded Patient Peer Educator Expl anation Advance Directives and Livin g Will 06/08/2021 10:56 AM Latest Code Status on File Code Status Date Activated Date Inactivated Comments Full Code 05/22/2021 5:12 PM 05/22/2021 8:07 PM Documents on File Type Date Recorded Patient Peer Educator Expl anation Advance Directives and Livin g Will 07/22/2021 10:56 AM Latest Code Status on File Code Status Date Activated Date Inactivated Comments Full Code 07/22/2021 9:44 AM 07/22/2021 1:18 PM Full Code 05/22/2021 5:12 PM 05/22/2021 8:07 PM Documents on File Type Date Recorded Patient Peer Educator Expl anation Advance Directives and Livin g Will 09/14/2021 9:12 AM Latest Code Status on File Code Status Date Activated Date Inactivated Comments Full Code 09/14/2021 8:10 AM Full Code 09/09/2021 1:35 AM 09/09/2021 3:48 AM Full Code 07/22/2021 9:44 AM 07/22/2021 1:18 PM Latest Code Status on File Code Status Date Activated Date Inactivated Comments Full Code 09/14/2021 3:03 PM 09/16/2021 5:00 PM Full Code 09/14/2021 8:10 AM 09/14/2021 2:39 PM Reason for Referral Specialty Diagnoses / Procedures Referred By Neal low Referred To Contact Obstetrics and Gynecology Diagnoses Bipolar depression (HCC) Encntr for suprvsn of normal preg, unsp, second trimester Procedures US Obstetric Detail Anatomy Transabdominal Single Fetus Hiro Tamez, DO [address] [place] [address] Referral ID Status Reason Start Date Expiration Date V isits Requested Visits Authorized [id number] Authorized 05/02/2021 05/02/2022 1 1 Specialty Diagnoses / Procedures Referred By Neal low Referred To Contact Behavioral Health Diagnoses Bipolar depression (HCC) Hiro Tamez, DO [address] [place] [address] Referral ID Status Reason Start Date Expiration Date V isits Requested Visits Authorized [id number] Pending Review 04/11/2021 04/11/2022 1 1 Specialty Diagnoses / Procedures Referred By Contac t Referred To Contact Maternal and Medicine Diagnoses Bipolar depression ([facility]) Encntr for suprvsn of normal preg, unsp, second trimester Procedures US Obstetric Detail Anatomy Transabdominal Single Fetus Hiro Tamez, [address] [place] [address] [id number] Additional Source Comments Reason for Visit (unrecogniz ed section and content) Reason Comments Initial Visit Reason Comments Blood in Urine Reason Comments Routine Visit OB PE--Pt sts jessica t she ran out of Zoloft and hasn't had any in over 1 week. We have not received any records from her provider in [place]. She will have PNL's, pap and cultures done today. Reason Comments Cough Reason Comments Routine Visit She is doing well . Currently having her GTT done today and will receive Rhogam inj. Unable to give urine sample just yet. Reason Comments Routine Visit Pt had ultrasound today for growth. Reason Comments Routine Visit Pt would like to discuss C/S date and getting her tubes tied. Also would like to discuss increasing Zoloft because of her depression. She never contacted the resources we gave to her. Unable to give urine sample today. Reason Onset Date Comments Scheduled 08/09/2021 Reason Onset Date Comments Medication Refill 08/12/2021 Reason Comments OB problem visit Pt c/o possible thru sh. C/o tongue is white and painful to eat and talk. Pt is unable to give urine sample at this time. Reason Comments Routine Visit Growth scan prior - Pt. C/o abdominal cramping, and tightness. Denies bleeding or LOF. Reason Comments Routine Visit Pt is doing well. Non-stress Test Having NST for velam entous cord insertion Reason Onset Date Comments Medication Refill 09/05/2021 Reason Comments Routine Visit Pt presents for R OB and NST. Non-stress Test Reason Comments Follow-up Pt had deli very on 09/14/21. Incision opened a little and her mother put 2 butterfly sutures. Reason Comments Urinary Problem burning with urinati on x 1 week Reason Comments Results INFORMATION SOURCE (unrecogn ized section and content) DATE CREATED AUTHOR AUTHOR'S ORGANIZ ATION 05/20/2021 [facility] DATE CREATED AUTHOR AUTHOR'S ORGANIZ ATION 09/28/2021 [facility] DATE CREATED AUTHOR AUTHOR'S ORGANIZ ATION 02/25/2022 [facility] DATE CREATED AUTHOR AUTHOR'S ORGANIZ ATION 11/30/2022 [facility] DATE CREATED AUTHOR AUTHOR'S ORGANIZ ATION 03/26/2023 [facility] DATE CREATED AUTHOR AUTHOR'S ORGANIZ ATION 06/05/2023 [facility] Care Teams (unrecognized sec tion and content) [facility] Relationship Specialty Start Date End Date No, Physician [facility] PCP - General 03/21/21 [facility] Relationship Specialty Start Date End Date No, Physician [facility] PCP - General 03/21/21 [facility] Relationship Specialty Start Date End Date Physician, [facility] PCP - General 05/20/21 [facility] Relationship Specialty Start Date End Date No, Physician [facility] PCP - General 03/21/21 [facility] Relationship Specialty Start Date End Date No, Physician [facility] PCP - General 03/21/21 [facility] Relationship Specialty Start Date End Date No, Physician [facility] PCP - General 03/21/21 [facility] Relationship Specialty Start Date End Date No, Physician [facility] PCP - General 03/21/21 [facility] Relationship Specialty Start Date End Date No, Physician [facility] PCP - General 03/21/21 [facility] Relationship Specialty Start Date End Date No, Physician [facility] PCP - General 03/21/21 [facility] Relationship Specialty Start Date End Date No, Physician [facility] PCP - General 03/21/21 [facility] Relationship Specialty Start Date End Date No, Physician [facility] PCP - General 03/21/21 [facility] Relationship Specialty Start Date End Date No, Physician [facility] PCP - General 03/21/21 [facility] Relationship Specialty Start Date End Date No, Physician [facility] PCP - General 03/21/21 [facility] Relationship Specialty Start Date End Date No, Physician [facility] PCP - General 03/21/21 [facility] Relationship Specialty Start Date End Date No, Physician [facility] PCP - General 09/14/21 [facility] Relationship Specialty Start Date End Date No, Physician [facility] PCP - General 09/14/21 [facility] Relationship Specialty Start Date End Date No, Physician [facility] PCP - General 09/14/21 [facility] Relationship Specialty Start Date End Date Areli Osorio MD [address] [place] [address] PCP - [facility] 11/05/20 [facility] Relationship Specialty Start Date End Date Areli Osorio MD [address] [place], [place] [address] PCP - [facility] 11/05/20 [facility] Relationship Specialty Start Date End Date Areli Osorio MD [address] [place] [address] PCP - General Family Medicine 11/05/20 Goals Section (unrecognized section and content) No Goals Information No Goals Information No Goals Information No Goals Information No Goals Information No Goals Information No Goals Information No Goals Information No Goals Information No Goals Information No Goals Information No Goals Information No Goals Information No Goals Information No Goals Information No Goals Information No Goals Information No Goals Information No Goals Information No Goals Information No Goals Information No Goals Information No Goals Information No Goals Information No Goals Information No Goals Information No Goals Information No Goals Information No Goals Information No Goals Information <item> Privacy Markings (unrecogniz ed section and content) Section Author: Chanelle Beach PROHIBITION ON REDISCLOSURE OF CONFIDENTIAL INFORMATION This notice accompanies a disclosure of information concerning a client made to you with the consent of such client. Source Comments (unrecognize d section and content) In the event this informatio n is protected by the Federal Confidentiality of Alcohol and Drug Abuse Patient Records regulations: The Federal rules restrict any use of the information to criminally investigate or prosecute any alcohol or drug abuse patient.[facility] the event this information is protected by the Federal Confidentiality of Alcohol and Drug Abuse Patient Records regulations: The Federal rules restrict any use of the information to criminally investigate or prosecute any alcohol or drug abuse patient.[facility] the event this information is protected by the Federal Confidentiality of Alcohol and Drug Abuse Patient Records regulations: The Federal rules restrict any use of the information to criminally investigate or prosecute any alcohol or drug abuse patient.[facility] FOR RECORDS PERTAINING TO PATIENTS WHO ARE OR HAVE BEEN ENROLLED IN A CHEMICAL DEPENDENCY/SUBSTANCEABUSE PROGRAM, SOME INFORMATION MAY BE OMITTED. This clinical summary was aggregated from multiple sources. Caution should be exercised in using it in the provision of clinical care. This summary normalizes information from multiple sources, and as a consequence, information in this document may materially change the coding, format and clinical context of patient data. In addition, data may be omitted in some cases. CLINICAL DECISIONS SHOULD BE BASED ON THE PRIMARY CLINICAL RECORDS. [facility] [employer] [facility]. provides no warranty or guarantee of the accuracy or completeness of information in this document.
[2023-06-15] MEDS: Morphine 4 MG/ML Syringe IV (03:27)
[2023-06-15] MEDS: Ondansetron 4 MG/2 ML Vial IV (03:27)
[2023-06-15] MEDS: metroNIDAZOLE 500 MG/100 ML BAG 100 MG IV (03:51)
[2023-06-15] MEDS: Ciprofloxacin 400 MG/200 ML BAG 200 MG IV (03:52)
[2023-06-15 03:56] VITALS: BP 96/64; PULSE 77; RESP 16; O2SAT 96
[2023-06-15 04:56] VITALS: BP 109/55; PULSE 78; RESP 16; O2SAT 98
== END 2023-06-15 04:58 | disposition home or self-care (01) ==
PROVIDERS: Emergency Provider Emergency Medicine; Visit Provider Emergency Medicine
DX: R10.32 Left lower quadrant pain (principal); K62.5 Hemorrhage of anus and rectum; N83.202 Unspecified ovarian cyst, left side; E66.9 Obesity, unspecified; F17.210 Nicotine dependence, cigarettes, uncomplicated; Z79.899 Other long term (current) drug therapy
CPT/HCPCS: 74177; 80048; 84703; 85025; 96365; 96366; 96375; 99284; J7050; Q9967; A4216; J2405

== ENCOUNTER 2024-03-19 07:53 | Emergency (ER) | payer MEDICAID, SELFPAY ==
[2024-03-19 07:53] VITALS: BP 129/87; PULSE 86; RESP 16; TEMP 36.1; O2SAT 100; BMI 38.2
--- NOTE | 2024-03-19 08:16 | CT_ITS ---
STUDY: CT ABDOMEN AND PELVIS WITHOUT CONTRAST REASON FOR EXAM: Female, 28 years old. Right flank pain RADIATION DOSAGE (If Supplied By Facility): CTDIvol = ( 19.93 ) mGy, DLP = ( 995.65 ) mGycm TECHNIQUE: Transaxial images were obtained from the dome of the diaphragm to the symphysis pubis without oral contrast, and without intravenous contrast. Sagittal and coronal images were reconstructed. Individualized dose optimization techniques were used for this CT. COMPARISON: Comparison is made with prior study dated June 15, 2023. FINDINGS: The visualized lung bases are unremarkable. The visualized portions of the heart are within normal limits. Normal liver. There are surgical clips in the gallbladder fossa consistent with a prior cholecystectomy. Normal spleen. Normal pancreas. Normal bilateral adrenal glands. Normal right kidney. Normal left kidney. No obstructive uropathy is seen at this time. Normal visualized stomach. Normal small intestine. Normal colon. The appendix is visualized and appears normal. Normal abdominal aorta. Normal inferior vena cava. Normal retroperitoneum. Normal urinary bladder. There is a 2.6 cm x 2.9 cm right ovarian cyst with possible low-level densities within it. There is also evidence of a 2 cm cyst in the left ovary. There is a small umbilical hernia containing fat. Normal osseous structures. CT/Abdomen/Pelvis without Cont IMPRESSION: Bilateral ovarian cysts with low level echoes within it more prominent on the right side as described. No evidence of obstructive uropathy at this time. Electronically Signed: Luke Mixon MD at 9:43 EDT ,
--- NOTE | 2024-03-19 08:17 | EDS_ITS ---
HPI History of Present Illness Chief Complaint: Back Detail of Chief Complaint: Back pain Informant: patient Narrative Narrative: Patient presents to the emergency department with complaint of back pain that started in the middle of the night around 3 AM. Describes a mild nausea. Rates her pain an 8 out of 10. At times the pain radiates around the right and left side but more on the right. Patient denies urinary symptoms of dysuria urgency or frequency. She has had no hematuria. She denies pain rating down her legs. Denies fall or injury to her back. She is never had pain like this before. Patient's had prior cholecystectomy. [facility] Medical History (Updated 03/19/24 @ 09:[address] Rock Calvin DO) delivery delivered PTSD (post-traumatic stress disorder) Depression Anxiety Colitis Home Medications ?Medication ?Instructions ?Recorded ?Last Taken ?Type ciprofloxacin HCl 500 mg tablet 500 mg PO BID #14 TABLETS 06/15/23 Unknown Rx hydrocodone-acetaminophen 5-325mg 1 tab PO Q6H PRN PRN Pain 3 days 06/15/23 Unknown Rx 5mg-325mg #12 TABLETS metronidazole 500 mg tablet 500 mg PO Q8H #21 tabs 06/15/23 Unknown Rx ondansetron 4 mg disintegrating 4 mg PO Q6H PRN PRN Nausea #10 tabs 06/15/23 Unknown Rx tablet sulfamethoxazole 800 1 tab PO BID #14 TABLETS 03/19/24 Unknown Rx mg-trimethoprim 160 mg tablet Allergy/AdvReac Type Severity Reaction Status Date / Time amoxicillin Allergy Anaphylaxis Verified 03/19/24 07:54 cefprozil (From Cefzil) Allergy Itching Verified 03/19/24 07:54 Penicillins (PCN) Allergy Anaphylaxis Verified 03/19/24 07:54 bupropion (From Wellbutrin) AdvReac Vomiting Verified 03/19/24 07:54 Surgical History History of tonsillectomy and adenoidectomy Hx of cholecystectomy Social History Smoking Status: Current every day smoker tobacco type: cigarettes ROS ROS ED Review of Systems ROS Unobtainable: other Constitutional Constitutional ED: Reports lethargy; Denies chills, fever(s), sweats or weight loss Eyes Eyes: Denies blurry vision, change in vision or diplopia ENT ENT ED: Denies rhinorrhea or sore throat Cardiovascular Cardiovascular: Denies chest pain, orthopnea or racing heartbeat Respiratory/Chest Respiratory/Chest: Denies cough, dyspnea, dyspnea on exertion, orthopnea or sputum Gastrointestinal Gastrointestinal: Denies abdominal pain, diarrhea, nausea or vomiting Genitourinary Genitourinary ED: Denies dysuria, hematuria or urinary frequency Musculoskeletal Musculoskeletal: Reports back pain; Denies arthralgias, myalgias or neck pain Integumentary Denies abscess, Abrasions or rash Neurologic Neurologic: Denies headache(s) or weakness Psychiatric Psychiatric: Denies anxiety, depression or suicidal thoughts Endocrine Endocrinology: Denies polydipsia, polyphagia or polyuria Hematologic/Lymphatic Hematologic/Lymphatic: Denies easy bleeding, easy bruising or lymphadenopathy Allergic/Immunologic Allergic/Immunologic ED: Denies mouth swelling, tongue swelling or urticaria EXAM Physical Exam Const Vital Signs: 03/19/24 07:53 Temperature 97.0 F L Temperature Source Temporal Pulse Rate 86 Respiratory Rate 16 Blood Pressure 129/87 H Blood Pressure Mean 101 Pulse Ox 100 Oxygen Delivery Method Room Air Positive well nourished and well developed General Appearance ED: well developed and NAD HEENT Reports TM's clear and moist mucous membranes normocephalic and atraumatic; Negative for trauma or tenderness Tympanic Membrane ED: Yes TM's clear Eyes PERRL and EOMs intact bilaterally General Eye ED: Negative for pale conjunctiva or scleral icterus Neck no lymphadenopathy, supple and no JVD General: Negative for tenderness Chest Wall inspection of chest normal and palpation of chest normal Chest: Negative for tenderness Resp normal respiratory effort and clear to auscultation bilaterally Effort and Inspection: Negative for respiratory distress or pain with movement Auscultation: Negative for rhonchi, wheezes or diminished lung sounds Cardio regular rate, regular rhythm, S1 normal heart sound, S2 normal heart sound and no murmurs Peripheral Pulses: pulses 2+ throughout GI normal to inspection, nondistended, normoactive bowel sounds, soft to palpation, non-tender, non-distended and no masses Back/Spine no thoracic nor lumbar tenderness Back/Spine Narrative: Tenderness palpation over right lumbar paraspinal musculature. She has CVA tenderness on the right. Negative straight leg raises. Deep tendon reflexes plus 2 out of 4 bilaterally at the patella and Achilles. Patient has normal L5 extension. Patient has normal sensation to light touch. Extremity normal to inspection General Extremety ED: Negative for edema General Extremity: Negative for edema Neuro oriented x3, CN's II-XII intact bilaterally, no sensory deficits noted and gait normal Sensorium / Orientation: awake, alert, oriented to person, oriented to place and oriented to time Motor Exam: strength 5/5 throughout and strength abnormal Psych mental status grossly normal Skin no rashes or lesions noted and no wounds MDM MDM MDM Narrative Medical decision making narrative: Patient presents with atraumatic back pain that woke her up in the middle the night. In the differential would be musculoskeletal pain versus kidney stone or UTI. IV line established. She was medicated with Toradol and morphine and Zofran. CBC with differential count of 13.9 with hemoglobin 14.4 and platelet count of 276. Chemistries unremarkable. Urinalysis positive for infection with 500 leukocyte esterase and 25-50 WBCs as well as +[address] flank obtained was negative for kidney stones but did show some bilateral ovarian cyst. I discussed results with patient. Given her drug allergies I started her on Bactrim and gave her first dose in the emergency department. Urine culture sent. Will refer to primary care physician on-call for no doc for follow-up. She is advised to return if worsening pain, fever, vomiting, or condition worsening way. Patient does not want a thing for pain for home and will use ibuprofen or Tylenol for discomfort. Lab Data Attestation: I reviewed the patient's lab results. Labs: Laboratory Results - last 24 hr 03/19/24 03/19/24 08:48 09:00 WBC 13.9 H RBC 5.31 Hgb 14.4 Hct 44.9 MCV 84.6 MCH 27.1 MCHC 32.1 RDW Std Deviation 44.4 H RDW Coeff of Gautam 14.5 Plt Count 276 MPV 11.0 Immature Gran % (Auto) 0.400 Neut % (Auto) 82.1 H Lymph % (Auto) 11.2 L Patrick % (Auto) 5.9 Eos % (Auto) 0.2 Baso % (Auto) 0.2 Absolute Neuts (auto) 11.4 H Absolute Lymphs (auto) 1.55 Nucleated RBC % 0 Sodium 139 Potassium 3.8 Chloride 108 H Carbon Dioxide 27.0 Anion Gap 4 L BUN 6 L Creatinine 0.60 Estim Creat Clear Calc 149.89 Est GFR (MDRD) Af Amer 153 Est GFR (MDRD) Non-Af 126 BUN/Creatinine Ratio 10.0 Glucose 100 Calcium 9.4 Urine Color Yellow Urine Clarity Sl. Cloudy Urine pH 7.0 Ur Specific [place] 1.015 Urine Protein 100 H Urine Glucose (UA) Normal Urine Ketones Negative Urine Occult Blood 250 H Urine Nitrite Negative Urine Bilirubin Negative Urine Urobilinogen 1 H Ur Leukocyte Esterase 500 H Urine RBC 10-25 SEEN Urine WBC 25-50 SEEN Ur Squamous Epith Cells 0-5 SEEN Urine Bacteria 1+ Urine Mucus 0 SEEN Radiography Diagnostic Testing: Clinical Impression(s) from Imaging Studies Abdomen/Pelvis CT 03/19/24 08:16 IMPRESSION: Bilateral ovarian cysts with low level echoes within it more prominent on the right side as described. No evidence of obstructive uropathy at this time. Electronically Signed: Luke Mixon MD at 9:43 EDT , Discharge Plan Triage Chief Complaint: Back ED Provider: Rock Calvin Dx/Rx/DC Orders Clinical Impression: Back pain, UTI (urinary tract infection) Instructions: ED Back Pain (Acute or Chronic), ED Cystitis Female Adult Prescriptions: New sulfamethoxazole-trimethoprim 800-160 mg tablet 1 tab PO BID Qty: 14 0RF No Action hydrocodone-acetaminophen [hydrocodone-acetaminophen] 5-325 mg tablet 1 tab PO Q6H PRN PRN (Reason: Pain) 3 Days Qty: 12 0RF metronidazole [metronidazole] 500 mg tablet 500 mg PO Q8H Qty: 21 0RF ciprofloxacin HCl [ciprofloxacin HCl] 500 mg tablet 500 mg PO BID Qty: 14 0RF ondansetron [ondansetron] 4 mg tablet,disintegrating 4 mg PO Q6H PRN PRN (Reason: Nausea) Qty: 10 0RF Primary Care Provider: Care Physician,No Primary Referrals: Chalo Morales MD [Med Staff - Active Staff] - 3-5 Days Care Physician,No Primary [Primary Care Provider] - Print Language: Wolof Disposition Disposition: Home, Self Care
[2024-03-19] MEDS: Ondansetron 4 MG/2 ML Vial IV (08:48)
[2024-03-19] MEDS: Ketorolac 30 MG/ML Syringe IV (08:49)
[2024-03-19] MEDS: Morphine 4 MG/ML Syringe IV (08:51)
--- OUTSIDE RECORDS SUMMARY | 2024-03-19 09:05 | XMS RPT_ITS | CCD ---
Author Organization [facility] [employer] [facility] Care Team Providers Care 911 Operator Name Role Phone Unavailable Primary Care Provider Unavailabl e No, Physician Primary Care Provider Unavailabl e Unavailable Primary Care Provider Unavailabl e Physician, No Pcp Primary Care Provider Unavaila ble VIKASH, JOHANNA Admitting Unavailable VIKASH, JOHANNA Attending Unavailable PHYSICIAN, NO PCP Primary Care Unavailable No, Physician Primary Care Provider Unavailabl e NO, PHYSICIAN Primary Care Unavailable PIOANIBAL DAVIDSON Admitting Unavailable PIOIKE DAVIDSONLE Attending Unavailable NO, PHYSICIAN Primary Care Unavailable (GAS), MARCE[facility]O [facility] Consulting Unavailable TARIQ DIOR Admitting Unavailable TARIQ DIOR Attending Unavailable NO, PHYSICIAN Primary Care Unavailable BUSUITO, DANNI DEONNA Admitting Unavailable BUSUITO, DANNI DEONNA Attending Unavailable SYSTEM, PROVIDER NOT IN Attending Unavaila ble SYSTEM, PROVIDER NOT IN Referring Unavaila ble NO, PHYSICIAN Primary Care Unavailable NO, PHYSICIAN Primary Care Unavailable DESLANDES, JINNA Admitting Unavailable DESLANDES, JINNA Attending Unavailable BUSUITO, DANNI YING Attending Unavailable NO, PHYSICIAN Primary Care Unavailable BUSUITO, DANNI DEONNA Referring Unavailable BUSUITO, DANNI DEONNA Admitting Unavailable NO, PHYSICIAN Primary Care Unavailable NO, PHYSICIAN Primary Care Unavailable TAMIE AYALA Attending Unavailabl e BUSUITO, DANNI YING Attending Unavailable NO, PHYSICIAN Primary Care Unavailable DESLANDES, JINNA Admitting Unavailable DESLANDES, JINNA Referring Unavailable NO, PHYSICIAN Primary Care Unavailable BUSUITO, DANNI DEONNA Attending Unavailable NO, PHYSICIAN Primary Care Unavailable TARIQ DIOR Attending Unavailable NO, PHYSICIAN Primary Care Unavailable BUSUITO, DANNI DEONNA Attending Unavailable NO, PHYSICIAN Primary Care Unavailable NO, PHYSICIAN Primary Care Unavailable TAMIE AYALA Attending Unavailabl e BUSUITO, DANNI YING Attending Unavailable NO, PHYSICIAN Primary Care Unavailable BUSUITO, DANNI DEONNA Attending Unavailable NO, PHYSICIAN Primary Care Unavailable BUSUITO, DANNI DEONNA Attending Unavailable NO, PHYSICIAN Primary Care Unavailable BUSUITO, DANNI DEONNA Attending Unavailable NO, PHYSICIAN Primary Care Unavailable NO, PHYSICIAN Primary Care Unavailable TAMIE AYALA Attending Unavailabl e BUSUITO, DANNI DEONNA Attending Unavailable NO, PHYSICIAN Primary Care Unavailable BUSUITO, DANNI DEONNA Attending Unavailable NO, PHYSICIAN Primary Care Unavailable NO, PHYSICIAN Primary Care Unavailable TAMIE AYALA Attending Unavailabl e AWAIS STEINBERG Attending Unavailable NO, PHYSICIAN Primary Care Unavailable ANNA STERLING Attending Unavailable NO, PHYSICIAN Primary Care Unavailable BUSUITO, DANNI DEONNA Attending Unavailable NO, PHYSICIAN Primary Care Unavailable Clementina Carrillo Unavailable Sidra Neva Unavailable Surekha Velasquez Unavailable Required, No Pcp Unavailable Unavailable Jeff Wilks Unavailable Unavailable Rachele Metcalf Unavailable Dedra Cui Unavailable [phone] Dr. Jeff Wilks Attending Unavaila ble Clementina Carrillo Unavailable Dedra Cui Unavailable [phone] Juan R Osorio MD Primary Care Provider JOSSELYN MITCHELL Attending Unavailable NO, PHYSICIAN Primary Care Unavailable JUAN R OSORIO Primary Care Unavailable JUAN R OSORIO Primary Care Unavailable Juan R Osorio MD Primary Care Provider GRACIE SHARMA MD Admitting Unavailable GRACIE SHARMA MD Attending Unavailable GRACIE SHARMA MD Primary Care Unavailable ISMA RECINOS Admitting Unavailable ISMA RECINOS Attending Unavailable ISMA RECINOS Primary Care Unavailable Allergies Allergy Classification Reported Allergen(s) Allergy Type Date of Onset Reaction(s) Facility (9 sources) Penicillins; Translations: [PENICILLINS] Propensity to adverse reactions to drug 9 Anaphylaxis [place], [place] (20 sources) buPROPion; Translations: [BUPROPION] Drug Allergy 0 Vomiting [facility] (20 sources) cefprozil; Translations: [CEFPROZIL] Drug Allergy 0 Itching [facility] (20 sources) Penicillins Propensity to adverse reactions to drug 9 Anaphylaxis [facility] (4 sources) Amoxicillin; Translations: [AMOXICILLIN] Drug Allergy 1 Anaphylaxis [facility] (4 sources) Ampicillin; Translations: [AMPICILLIN] Drug Allergy 1 Anaphylaxis [facility] (20 sources) Morphine; Translations: [MORPHINE] Drug Allergy 1 Sleep Issues, Other (See Comments) [facility] (5 sources) strawberry allergenic extract; Translations: [STRAWBERRY] Drug Allergy 2 Other (See Comments) [facility] (4 sources) Penicillins Drug Allergy 9 Anaphylaxis [facility] [place] (1 source) Penicillins Drug allergy (disorder) [facility] Repository Medications Current Medications Medication Drug Class(es) Dates Sig (Normalized) Sig (Original) acetaminophen 325 mg oral tablet (19 sources) take 2 tablets by mouth every six hours as needed for pain acetaminophen (TYLENOL) 325 MG tablet Take 650 mg by mouth every 6 (six) hours as needed for pain . 0 Active ARIPiprazole 15 mg oral tablet (4 sources) Atypical Antipsychotic Start: 10-21-2020 take 1 tablet by mouth once daily ARIPiprazole (ABILIFY) 15 mg tablet Take 1 tablet by mouth once daily. 30 tablet 1 10/21/2020 Active Comment on above: [facility] doxylamine succinate 25 mg oral tablet (16 sources) Start: 05-09-2021 End: 09-06-2021 take 1 tablet by mouth once daily doxylamine (UNISOM) 25 mg tablet Take 1 (one) tablet (25 mg total) by mouth nightly . 30 tablet 3 05/09/2021 09/06/2021 Active gabapentin 300 mg oral capsule (3 sources) Anti-epileptic Agent Start: 10-21-2020 take 1 capsule by mouth twice daily gabapentin (NEURONTIN) 300 mg capsule Take 1 capsule by mouth twice daily for 30 days. 60 capsule 1 10/21/2020 Active Comment on above: Take 1 capsule by mo [facility] twice daily for 30 days. hydrOXYzine pamoate 50 mg oral capsule (4 sources) Antihistamine take 1 capsule by mouth every eight hours as needed hydrOXYzine pamoate (VISTARIL) 50 mg capsule Take 50 mg by mouth three times daily as needed. Active Comment on above: Take 50 mg by mouth three times daily as needed. ibuprofen 600 mg oral tablet (2 sources) Nonsteroidal Anti-inflammatory Drug Start: 09-16-2021 End: 10-16-2021 take 1 tablet by mouth every six hours ibuprofen (ADVIL,MOTRIN) 600 MG tablet Take 1 (one) tablet (600 mg total) by mouth every 6 (six) hours . 120 tablet 0 09/16/2021 10/16/2021 Active Start: 01-07-2020 End: 01-07-2020 ibuprofen (ADVIL;MOTRIN) tab let 600 mg levonorgestrel 0.848946 mg/hr intrauterine system (1 source) Progestin, Progestin-containing Intrauterine Device levonorgestrel (MIRENA) IUD 52 mg 1 each by Intrauterine route once 0 Active magic mouthwash w/ nystatin susp equal parts viscous lidocaine 2%, diphenhydramine 12.5mg/5mL, maalox [id number]/5mL, nystatin 100,000unit/mL (2 sources) Start: 2021 End: 2021 magic mouthwash w/ nystatin susp equal parts viscous lidocaine 2%, diphenhydramine 12.5mg/5mL, maalox [id number]/5mL , nystatin 100,000unit/mL Swish and swallow 5 mL 3 (three) times a day for 10 days . 150 mL 0 08/17/2021 08/27/2021 Active magnesium oxide 400 mg oral tablet (3 sources) take 1 tablet by mouth once daily magnesium oxide (MAG-OX) 400 mg magnesium tablet Take 400 mg by mouth 1 (one) time each day. 0 Active mirtazapine 30 mg oral tablet (4 sources) Start: 2020 take 1 tablet by mouth once daily at bedtime mirtazapine (REMERON) 30 mg tablet Take 1 tablet by mouth daily at bedtime. 30 tablet 1 11/05/2020 Active Comment on above: Take 1 tablet by josé miguel th daily at bedtime. naproxen 500 mg oral tablet (1 source) Nonsteroidal Anti-inflammatory Drug Start: 2019 take 1 tablet by mouth twice daily naproxen (NAPROSYN) 500 MG tablet Take 1 tablet by mouth 2 times daily 60 tablet 0 01/07/2020 Active nitrofurantoin, macrocrystals 25 mg / nitrofurantoin, monohydrate 75 mg oral capsule (1 source) Nitrofuran Antibacterial Start: 2022 End: 2022 take 1 capsule by mouth twice daily nitrofurantoin monohydrate and macrocrystal (MACROBID) 100 mg capsule Take 1 capsule by mouth twice daily for 5 days. 10 capsule 0 01/09/2023 01/14/2023 Active Comment on above: Take 1 capsule by mo [facility] twice daily for 5 days. omeprazole 20 mg delayed release oral capsule (8 sources) Proton Pump Inhibitor take 1 capsule by mouth once daily omeprazole (PRILOSEC) 20 MG capsule Take 20 mg by mouth daily . 0 Active vit no.124/iron/folic ( VITAMIN ORAL) (20 sources) vit no.124/iron/folic ( VITAMIN ORAL) Take by mouth . 0 Suspended vit no. 124/iron/folic ( VITAMIN ORAL) Take by mouth . 0 Active vitamin iron fum-folic acid 27-1 mg per tablet (3 sources) take 1 tablet by mouth once daily vitamin iron fum-folic acid 27-1 mg per tablet Take 1 tablet by mouth 1 (one) time each day. 0 Active sulfamethoxazole 800 mg / trimethoprim 160 mg oral tablet (1 source) Dihydrofolate Reductase Inhibitor Antibacterial, Sulfonamide Antimicrobial Start: 10-22-19 End: 10-29-19 take 1 tablet by mouth twice daily sulfamethoxazole- trimethoprim (BACTRIM DS,SEPTRA DS) 800-160 mg per tablet Take 1 (one) tablet by mouth 2 (two) times a day for 7 days . 14 tablet 0 10/21/2021 10/28/2021 Active Completed/Discontinued Medications Medication Drug Class(es) Dates Sig (Normalized) Sig (Original) benzonatate 100 mg oral capsule (3 sources) Non-narcotic Antitussive Start: 11-09-2020 take 2 capsules by mouth three times daily as needed benzonatate (TESSALON PERLE) 100 mg capsule Indications: Cough , URI with cough and congestion Take 2 capsules by mouth three times daily as needed. 30 capsule 0 11/09/2020 Active Comment on above: Take 2 capsules by [facility] three times daily as needed. fluticasone propionate 0.05 mg/actuat metered dose nasal spray (3 sources) Corticosteroid Start: 11-09-2020 take 2 spray(s) by mouth once daily fluticasone (FLONASE) 50 mcg/actuation nasal spray Indications: URI with cough and congestion Use 2 Sprays in each nostril once daily. Rinse mouth after use. 1 Bottle 0 11/09/2020 Active Comment on above: Use 2 Sprays in each nostril once daily. Rinse mouth after use. lamoTRIgine 100 mg oral tablet (20 sources) Mood Stabilizer, Anti-epileptic Agent Start: 05-09-2022 End: 07-07-2022 Start: 10-21-2020 End: 05-09-2022 take 1 tablet by mouth twice daily lamoTRIgine (LAMICTAL) 25 mg tablet Take 1 tablet by mouth twice daily. 60 tablet 1 10/21/2020 Active Comment on above: Take 1 tablet by [facility] twice daily. lansoprazole 15 mg delayed release oral capsule (3 sources) Proton Pump Inhibitor End: 2 take 1 capsule by mouth once daily lansoprazole (PREVACID) 15 MG capsule Take 15 mg by mouth daily . 0 08/30/2021 Discontinued (Formulary change) Magnesium (7 sources) End: 2 MAGNESIUM ORAL Take by mouth . 0 08/08/2021 Discontinued MAGNESIUM ORAL T lukasz by mouth . 0 Active nystatin 814653 unt/ml oral suspension (2 sources) Polyene Antifungal Start: 08-18-2021 End: 08-30-2021 nystatin (MYCOSTATIN) 100,000 unit/mL suspension SWISH AND SWALLOW 5ML THREE TIMES DAILY FOR 10 DAYS 0 08/18/2021 08/30/2021 Discontinued (Therapy completed) pyridoxine hydrochloride 25 mg oral tablet (18 sources) Start: 05-09-2021 End: 09-05-2021 take 1 tablet by mouth three times daily as needed pyridoxine, vitamin B6, (vitamin B-6) 25 MG tablet Take 1 (one) tablet (25 mg total) by mouth 3 (three) times a day as needed . 90 tablet 1 09/06/2021 Suspended rho(d) immune globulin, human 1500 unt prefilled syringe (2 sources) Human Immunoglobulin G Start: 07-05-2021 End: 07-05-2021 rho(D) immune globulin (RHOGAM) injection 300 mcg Start: 07-05-2021 End: 07-05-2021 rho(D) immune globulin (RHOG AM) injection 300 mcg sertraline 100 mg oral table t (20 sources) Serotonin Reuptake Inhibitor Start: 02-14-2022 End: 07-07-2022 Start: 11-22-2021 End: 01-20-2022 Start: 05-09-2021 End: 08-12-2021 take 1 tablet by mouth once daily sertraline (ZOLOFT) 50 MG tablet Take 1 (one) tablet (50 mg total) by mouth daily . 30 tablet 2 08/12/2021 Active Problems Active Problems Problem Classification Problem Date Documented Date Episodic/Chronic Acute posthemorrhagic anemia (2 sources) Acute posthemorrhagic anemia; Translations: [Acute posthemorrhagic anemia] Onset: 09-16-2021 09-16-2021 Episodic Alcohol-related disorders (13 sources) Chronic alcoholism in remission; Translations: [Alcohol [...] Episodic Other nutritional; endocrine; and metabolic disorders (13 sources) Body mass index 40+ - severely [...] right shoulder, initial encounter] Episodic Substance-related disorders (14 sources) Smoker; Translations: [Nicotine dependence, unspecified, uncomplicated] Onset: 11-05-2020 08-24-2021 Chronic Suicide and intentional self-inflicted injury (6 sources) Suicidal thoughts; Translations: [Suicidal ideation] Onset: 11-27-2022 11-27-2022 Episodic Unclassified (2 sources) OB problem visit Onset: 08-17-2021 Unclassified (2 sources) PSYCH EVAL, PANICK ATTACKS 11-27-2022 Comment on above: PSYCH EVAL, PANICK A TTACKS Viral infection (1 source) Disease caused by 2019-nCoV; Translations: [COVID-19] Episodic Past or Other Problems Problem Classification Problem Date Documented Date Episodic/Chronic Diabetes or abnormal glucose tolerance complicating ; childbirth; or the puerperium (18 sources) Abnormal glucose tolerance test during - baby not yet delivered; Translations: [Abnormal glucose complicating ] Onset: 07-25-2021 Resolved: 09-15-2021 Episodic Hemorrhage during ; abruptio placenta; placenta previa (4 sources) Antepartum hemorrhage; Translations: [Hemorrhage in early [...] 04-11-2021 Resolved: 10-04-2021 Chronic Other complications of (1 source) Obesity; Translations: [Obesity complicating , unspecified trimester] Resolved: 11-05-2020 11-05-2020 Chronic Other complications of (20 sources) Maternal tobacco use; Translations: [Smoking (tobacco) complicating , unspecified trimester] Onset: 06-24-2020 Resolved: 10-04-2021 Episodic Other complications of (20 sources) RhD negative; Translations: [Other specified related conditions, unspecified trimester] Onset: 06-30-2020 Resolved: 11-05-2020 Episodic Other complications of (16 sources) Abdominal [...] Onset: 08-24-2021 Episodic Other lower respiratory disease (13 sources) Snoring; Translations: [Snoring] Onset: 11-05-2020 08-24-2021 Episodic Other and delivery including normal (20 sources) Normal ; Translations: [Encounter for supervision of normal , unspecified, second trimester] Onset: 04-11-2021 Resolved: 10-04-2021 Episodic Other screening for suspected conditions (not mental disorders or infectious disease) (20 sources) Patient encounter status; Translations: [Encounter for other specified screening] Onset: 08-08-2021 Resolved: 10-04-2021 Episodic Previous (1 source) ; Translations: [Maternal care for unspecified type scar from previous delivery] Onset: 06-24-2020 Resolved: 11-05-2020 11-05-2020 Episodic Residual codes; unclassified (2 sources) Gestation [...] Results Test Name Value Interpretation Reference Range Facility CBC + DIFFon 03-04-2024 Baso # 0.05 x10EE3/UL Normal 0.00 - 0.10 [facility] Comment on above: Performed By: #### 2 [id number] #### [facility],[address] [place] [address] Basophils/100 WBC (Bld) 0.5 % Normal 0.0 - 2.0 [facility] Comment on above: Performed By: #### 2 [id number] #### [facility],[address] [place] [address] 19492 CBC + DIFF Normal [facility] Comment on above: Result Comment: CBC- COMPLETE BLOOD COUNT Performed By: #### 2 09677 #### [facility],[address] [place] [address] 32408 EO # 0.09 x10EE3/UL Normal 0.00 - 0.50 [facility] Comment on above: Performed By: #### 2 84383 #### [facility],[address] [place] [address] 26797 Eosinophils/100 WBC (Bld) 0.9 % Normal 0.0 - 7.0 [facility] Comment on above: Performed By: #### 2 63713 #### [facility],[address] [place], [place] [id number] Erythrocyte distribution width (RBC) [Ratio] 14.1 % Normal 12.0 - 15.6 [facility] Comment on above: Performed By: #### 2 35912 #### [facility],[address] [place] [address] 64788 Hematocrit (Bld) [Volume fraction] 47.4 % High 34.0 - 46.0 [facility] Comment on above: Performed By: #### 2 31660 #### [facility],[address] [place] [address] 23343 Hemoglobin (Bld) [Mass/Vol] 15.4 g/dL Normal 12.0 - 16.0 [facility] Comment on above: Performed By: #### 2 79856 #### [facility],[address] [place] [address] 09236 Lymph # 2.61 x10EE3/UL Normal 0.80 - 2.80 [facility] Comment on above: Performed By: #### 2 13266 #### [facility],[address] [place] [address] 41219 Lymphocytes/100 WBC (Bld) 26.0 % Normal 20.0 - 45.0 [facility] Comment on above: Performed By: #### 2 14269 #### [facility],[address] [place] [address] MANUAL DIFF N/A Normal [facility] Comment on above: Performed By: #### 2 62220 #### [facility],[address] [place] [address] MCH (RBC) [Entitic mass] 27 pg Normal 27 - 33 [facility] Comment on above: Performed By: #### 2 58465 #### [facility],[address] [place] [address] MCHC 33 X10 3 Normal 32 - 36 [facility] Comment on above: Performed By: #### 2 99855 #### [facility],[address] [place] [address] MCV (RBC) [Entitic vol] 83 fL Normal 80 - 99 [facility] Comment on above: Performed By: #### 2 49938 #### [facility],[address] [place] [address] Island # 0.62 x10EE3/UL Normal 0.20 - 1.00 [facility] Comment on above: Performed By: #### 2 49765 #### [facility],[address] [place] [address] MONOS % 6.2 % Normal 0.0 - 10.0 [facility] Comment on above: Performed By: #### 2 51501 #### [facility],[address] [place], [place] [id number] Morphology Ayan (Bld) [Interp] N/A Normal [facility] Comment on above: Performed By: #### 2 22440 #### [facility],[address] [place], [place] [id number] Neut # 6.66 x10EE3/UL Normal 1.50 - 7.10 [facility] Comment on above: Performed By: #### 2 05495 #### [facility],[address] [place] [address] 59652 Neutrophils/100 WBC (Bld) 66.4 % Normal 46.0 - 76.0 [facility] Comment on above: Performed By: #### 2 61718 #### [facility],[address] [place] [address] 00611 PLATELET 291 x10EE3/UL Normal 150 - 450 [facility] Comment on above: Performed By: #### 2 19318 #### [facility],[address] [place] [address] 30974 Platelet mean volume (Bld) [Entitic vol] 8.6 fL Normal 6.6 - 10.5 [facility] Comment on above: Result Comment: AUTO MATED DIFFERENTIAL Performed By: #### 2 17435 #### [facility],[address] [place] [address] 83019 RBC 5.71 x 10EE6/UL High 4.10 - 5.30 [facility] Comment on above: Performed By: #### 2 19242 #### [facility],[address] [place] [address] 05914 WBC 10.0 x 10EE3/UL Normal 4.5 - 10.8 [facility] Comment on above: Performed By: #### 2 10938 #### [facility],[address] [place] [address] 76556 CMP with eGFRon 03-04-2024 AGE 28 years Normal [facility] Comment on above: Performed By: #### 2 36860 #### [facility],[address] [place] [address] 70802 Albumin [Mass/Vol] 3.6 g/dL Normal 3.4 - 5.0 [facility] Comment on above: Performed By: #### 2 94400 #### [facility],[address] [place] [address] 08982 Albumin/Globulin [Mass ratio] 0.8 {ratio} Low 0.9 - 1.6 [facility] Comment on above: Performed By: #### 2 22816 #### [facility],[address] [place] [address] 68924 ALK PHOS 119 U/L High 46 - 116 [facility] Comment on above: Performed By: #### 2 89505 #### [facility],[address] [place] [address] 57808 ALT [Catalytic activity/Vol] 11 U/L Low 16 - 63 [facility] Comment on above: Performed By: #### 2 17782 #### [facility],[address] [place] [address] 52573 Anion gap [Moles/Vol] 15 mmol/L Normal 10 - 20 [facility] Comment on above: Performed By: #### 2 49433 #### [facility],[address] [place] [address] 76348 AST [Catalytic activity/Vol] 20 U/L Normal 13 - 39 [facility] Comment on above: Performed By: #### 2 36524 #### [facility],[address] [place] [address] 93757 B/C RATIO 5 ratio Normal 0 - 30 [facility] Comment on above: Performed By: #### 2 67119 #### [facility],[address] [place] [address] 98530 Bilirubin [Mass/Vol] 0.6 mg/dL Normal 0.2 - 1.0 [facility] Comment on above: Performed By: #### 2 61315 #### [facility],[address] [place] [address] 26018 Calcium [Mass/Vol] 8.9 mg/dL Normal 8.5 - 10.1 [facility] Comment on above: Performed By: #### 2 11859 #### [facility],[address] [place] [address] 13467 Chloride [Moles/Vol] 103 mmol/L Normal 98 - 107 [facility] Comment on above: Performed By: #### 2 95764 #### [facility],[address] [place] [address] 66669 CMP with eGFR Normal [facility] Comment on above: Result Comment: COMP REHENSIVE METABOLIC PANEL Performed By: #### 2 35408 #### [facility],[address] [place], [place] [id number] CO2 [Moles/Vol] 27.6 mmol/L Normal 21.0 - 32.0 [facility] Comment on above: Performed By: #### 2 50325 #### [place] [id number] Creatinine [Mass/Vol] 0.73 mg/dL Normal 0.55 - 1.02 [facility] Comment on above: Performed By: #### 2 73914 #### [facility],[address] [place], [place] [address] GFR/1.73 sq M.predicted among non-blacks MDRD (S/P/Bld) [Vol rate/Area] mL/min/{1.73_m2} Normal 60 - 999 [facility] Comment on above: Performed By: #### 2 21866 #### [place] [id number] Result Comment: ACCO RDING TO THE NATIONAL KIDNEY DISEASE EDUCATION PROGRAM(NKDE), A NORMAL eGFR IS A VALUE GREATER THAN OR EQUAL TO 60 ML/MIN/1.73 SQ METERS. CHRONIC KIDNEY DISEASE: <60mL/MIN/1.73 SQ METERS KIDNEY FAILURE: <15mL/MIN/1.73 SQ METERS THIS TEST SHOULD ONLY BE USED FOR PATIENTS 18 YEARS OF AGE AND OLDER. Globulin (S) [Mass/Vol] 4.5 g/dL High 1.5 - 3.8 [facility] Comment on above: Performed By: #### 2 73297 #### [place] [id number] Glucose [Mass/Vol] 90 mg/dL Normal 74 - 106 [facility] Comment on above: Performed By: #### 2 14773 #### [facility],[address] [place] [address] 93749 Potassium [Moles/Vol] 3.2 mmol/L Low 3.5 - 5.1 [facility] Comment on above: Performed By: #### 2 41793 #### [facility],[address] [place] [address] 81370 Protein [Mass/Vol] 8.1 g/dL Normal 6.4 - 8.2 [facility] Comment on above: Performed By: #### 2 13409 #### [facility],[address] [place] [address] 45881 Sodium [Moles/Vol] 142 mmol/L Normal 136 - 145 [facility] Comment on above: Performed By: #### 2 23595 #### [facility],[address] [place] [id number] Urea nitrogen [Mass/Vol] 4 mg/dL Low 7 - 18 [facility] Comment on above: Performed By: #### 2 [id number] #### [facility],[address] [place] [address] ABDOMEN/PELVIS Won 2023 CT ABDOMEN/PELVIS W [place] [address] Patient: MITZI LAWLER Phone#: : 1995 Age: 28 Gender: F Pt. Type: ER Account: [id number] Location: [facility] Ordering: ISMA RECINOS Exam Date: 03/04/2024/14:55 Family Phys: Charge Code: 188223 Physician: Cooke Order #: [id number] Dose#: [id number] PROCEDURE: CT ABDOMEN/PELVIS WITH CONTRAST COMPARISON: [facility], CT, ABDOMEN/PELVIS W CON, 11/26/2023, 0:40. INDICATIONS: Abdominal pain. TECHNIQUE: After obtaining the patient's consent, CT images were created with non-ionic intravenous contrast material. All CT scans at this facility use dose modulation, iterative reconstruction, and/or weight based dosing when appropriate to reduce radiation dose to as low as reasonably achievable. IV CONTRAST: Omnipaque 350,80ml TOTAL DOSE: 31.6 CTDIvol(mGy) FINDINGS: LIVER: Low-attenuation adjacent the falciform ligament, most consistent with focal fatty infiltration. BILIARY: Gallbladder is absent, surgical clips are in the gallbladder fossa. PANCREAS: Normal. No lesion, fluid collection, ductal dilatation, or atrophy. SPLEEN: Normal. No enlargement or focal lesion. KIDNEYS: Kidneys enhance and excrete contrast symmetrically. No hydronephrosis. ADRENALS: Normal. No mass or enlargement. AORTA/VASCULAR: No aortic aneurysm. RETROPERITONEUM: Normal. No mass or adenopathy. BOWEL/MESENTERY: No bowel obstruction or dilatation. Fatty infiltration of the ascending colon, this may be sequela of inflammatory bowel disease versus incidental finding. No significant stool burden. Appendix is unremarkable in size. ABDOMINAL WALL: Fat containing umbilical hernia URINARY BLADDER: Normal. No visible focal wall thickening, lesion, or calculus. PELVIC NODES: Normal. No adenopathy. PELVIC ORGANS: Uterus is present. No adnexal mass. BONES: Stable sclerosis at the sacroiliac joints. LUNG BASES: Normal. No visible pulmonary or pleural disease. OTHER: Negative. Continued Report - Page 2 of 2 Patient: MITZI LAWLER Phone#: : 1995 Age: 28 Gender: F Pt. Type: ER Account: [id number] Location: [facility] Ordering: ISMA RECINOS Exam Date: 03/04/2024/14:55 Family Phys: Charge Code: 340206 Physician: Cooke Order #: [id number] Dose#: [id number] CONCLUSION: 1. No acute intra-abdominal or pelvic abnormality. 2. Fatty infiltration of the ascending colon, this can be seen with sequela of inflammatory bowel disease versus incidental finding. Dictated by: Britt Tarango MD on 03/04/2024 at 15:14 Approved by: Britt Tarango MD on 03/04/2024 at 15:24 Normal [facility] FACILITY CODING SUMMARYon FACILITY CODING SUMMARY Facility Coding Facility Coding Summary [address] [address] [id number] 03/04/2024 Patient: MITZI LAWLER Sex: Female : 1995 Age: 28y Providers: Isma Recinos D.O. DIAGNOSTIC WORKUP Chief Complaint ABDOMINAL PAIN. -- Isma Recinos D.O. Principal Diagnosis Acute generalized abdominal pain of unknown cause. -- Isma Recinos D.O. Acute nontraumatic generalized abdominal pain. -- Isma Recinos D.O. ICD-10 Codes R10.84: Generalized abdominal pain R10.84: Generalized abdominal pain PROCEDURES Procedures from Providers: Procedures from Nurses/Facility: SUPPLIES ELEVEL 95069-90 1 of 2 Facility Coding This is a partial abstract of information documented in the full record. Product Steward must use independent judgment in selecting codes. CPT copyright 2022 [employer]. All Rights Reserved. 2 of 2 Normal [facility] LIPASEon 03-04-2024 Lipase [Catalytic activity/Vol] 29.0 U/L Normal 15.0 - 78.0 [facility] Comment on above: Result Comment: *PLE ASE NOTE THAT RANGES FOR LIPASE HAVE CHANGED OF 05/25/23 DUE TO AN ASSAY UPDATE BY THE BLASTING CAP ASSEMBLER.THE NEW ASSAY RANGE IS 6-250 U/L, WITH A REFERENCE RANGE OF 16-77 U/L. Performed By: #### 2 [id number] #### [facility],[address] [place], [place] [id number] MED ADMINISTRATION DETAILon 03-04-2024 MED ADMINISTRATION DETAIL Arch Cushion Press Operator Medication Administration Record [address] [address] [id number] 03/04/2024 Patient: MITZI LAWLER Sex: Female : 1995 Age: 28y MEASUREMENTS: Wt: 93.0 kg, Ht/Lance: 62.0 in, BMI: 37.49 ALLERGIES: Penicillins Medication Ordered Medication Administration Date/Time 1 of 1 Normal [facility] NURSES CLINICAL REPORT (NOTE S)on 03-04-2024 NURSES CLINICAL REPORT (NOTES) Nurse Narrative Nurse Clinical Narrative [facility] [address] [place] [address] [id number] 03/04/2024 Patient: MITZI LAWLER Sex: Female : 1995 Age: 28y Disposition: Discharge to Home Disposition Decision Time: 16:42 03/04/2024 Departure Time: 17:13 03/04/2024 TRIAGE Arrived by private vehicle. Historian: patient. Primary physician (NONE). Triage time: 10:03 03/04/2024. Acuity: LEVEL 3. Chief Complaint: ABDOMINAL PAIN and NAUSEA and CONSTIPATION. Onset. (SUNDAY). ( UNABLE TO EAT OR HAVE A BOWEL MOVEMENT SINCE SUNDAY). The patient has had nausea, constipation and abdominal pain. SEPSIS SCREEN: NEGATIVE. SIRS criteria negative. -- 10:10 03/04/24 EDT Hansel Griggs R.N. 10:06 03/04/24. BP: 125/89 MAP: 101. HR: 80. RR: 16. O2 saturation: 97% Temperature: 97.9 F. Pain level now 4/10. Describes the pain as aching and sharp. -- 10:06 03/04/24 EDT Hansel Griggs R.N. Measurements: 10:04 03/04/24 Wt: 93.0 kg, Ht/Lance: 62.0 in, BMI: 37.49 -- 10:04 03/04/24 EDT Hansel Griggs R.N. Medications: no home medications -- 12:05 03/04/24 EDT Erik Easton Allergies: 1 of 4 Nurse Narrative Penicillins -- 10:06 03/04/24 EDT Hansel Griggs R.N. Problems: no known problem -- 10:12 03/04/24 EDT Hansel Griggs R.N. ADDITIONAL SURGERIES: Tubal Ligation -- 10:07 03/04/24 EDT Hansel Griggs R.N. Gallbladder Surgery -- 10:07 03/04/24 EDT Hansel Griggs R.N. Tonsillectomy Adenoidectomy -- 10:03/04/24 CYRUS Griggs R.N. -- 10:07 03/04/24 CYRUS Griggs R.N. History 10:03 03/04/24. SOCIAL HX: Current every day heavy tobacco smoker (cigarette)- 1 pack per day. Drug use. (MARIJUANA). No alcohol use. The patient has not traveled outside the [place] Infectious disease exposure: No infectious disease exposure. ABUSE ASSESSMENT: The patient answered no to the question(s) Do you feel safe in your home? , Are you afraid to go home? , Are you afraid of your partner or someone close to you? , Has your partner or someone close to you emotionally, physically, or sexually assaulted you? , Has your partner or someone close to you threatened to harm/ kill you? , Did your partner or someone close to you cause the presenting injury(s)? , Has your partner or someone close to you ever used a weapon towards you? , Have children witnessed violence in the home? and Has your partner or someone close to you physically abused children? . Abuse denied. No report of abuse. SELF HARM ASSESSMENT: Self harm assessment was performed. The patient answered no to the question(s) Have you recently felt down, depressed, or hopeless? , Do you have thoughts of harming or killing yourself? , Do you have a plan for harming or killing yourself? , Have you recently had thoughts about harming or killing others? , Do you have any dangerous items in your possession? , Have you noticed less interest or pleasure in doing things? , Are you here because you tried to hurt yourself? and Have you ever tried to hurt yourself before today? . SKIN INTEGRITY ASSESSMENT: Skin integrity risk assessment was performed. Risk factors identified. LEARNING NEEDS ASSESSMENT: The learning needs assessment revealed no barriers. 2 of 4 Nurse Narrative FALL RISK ASSESSMENT: Fall risk assessment completed. No risk factors identified. NUTRITIONAL RISK ASSESSMENT: No nutritional deficiencies were identified. -- 10:10 03/04/24 CYRUS Girggs R.N. Assessment 10:03 03/04/24. The patient states feels the same. -- 10:10 03/04/24 CYRUS Griggs R.N. Interventions 10:03 03/04/24. Identification band and allergy band on patient. To waiting room. -- 10:10 03/04/24 EDT Hansel Griggs R.N. PHYSICAL ASSESSMENT 13:25 03/04/24. Ambulatory to room. GENERAL / NEURO / PSYCH: Alert. Oriented X 4. Appears in no acute distress. HEENT: Mucous membranes are pink. GI / : The patient has had intermittent episodes of nausea. Abdomen soft. Abdominal tenderness diffusely. Diminished bowel sounds in all quadrants. No vaginal bleeding. No vaginal discharge. Last BM was Sunday. SKIN: Skin is warm and dry. -- 13:30 03/04/24 EDT Mariam Maxwell R.N. NURSING PROGRESS NOTES 14:13 03/04/24. Assisted patient to bathroom; tolerated well (Urine specimen obtained at this time). -- 14:14 03/04/24 CYRUS Maxwell R.N. 14:18 03/04/24. Site #1 started via IV in the right antecubital space with an 18g angiocath with aseptic technique and good blood return; 1 attempt. Blood drawn: rainbow set tube(s). Saline lock flushed with 5 mL saline. -- 14:23 03/04/24 CYRUS Maxwell R.N. 14:24 03/04/24. Call light placed in reach of patient. Bed placed in lowest position. Brakes of bed on. -- 14:24 03/04/24 CYRUS Maxwell R.N. 15:48 03/04/24. Patient waiting for disposition. -- 15:49 03/04/24 EDT Mariam Luevano (more content not included)... Normal [facility] ORDER SHEET (CPOE ONLY)on ORDER SHEET (CPOE ONLY) Order Sheet Order Sheet [address] [place] [address] [id number] 03/04/2024 Patient: MITZI LAWLER Sex: Female : 1995 Age: 28y MEASUREMENTS: Wt: 93.0 kg, Ht/Lance: 62.0 in, BMI: 37.49 ALLERGIES: Penicillins MEDICATION/IV/DRIP/F LUID ORDERS Order Description Priority Entered Acknowledged Completed LAB ORDERS Order Description Priority Entered Acknowledged Collected Completed CBC w Diff Stat Stat 14:06 03/04/2024 14:11 03/04/2024 14:18 03/04/2024 Mariam Ornelas Shauna Ewing, D.O. R.N. R.Janie. CMP Stat Stat 14:06 03/04/2024 14:11 03/04/2024 14:18 03/04/2024 Mariam Ornelas Shauna Ewing, D.O. R.N. R.N. Lipase Stat Stat 14:06 03/04/2024 14:11 03/04/2024 14:18 03/04/2024 Mariam Ornelas Shauna Ewing, D.O. R.N. R.N. Urinalysis Stat Stat 14:06 03/04/2024 14:11 03/04/2024 14:18 03/04/2024 Mariam Ornelas Shauna Ewing, 1 of 2 Order Sheet Phoenix BasurtoN. R.N. Urine - HCG Stat 14:06 03/04/2024 14:11 03/04/2024 14:18 03/04/2024 Stat Mariam Ornelas Shauna Ewing, D.O. R.N. R.NVeronica DIAGNOSTIC STUDY ORDERS Order Description Priority Entered Acknowledged Completed CT ABD/PEL w IV Cont Stat Stat 14:06 03/04/2024 14:11 14:18 Isma Recinos, 03/04/2024 03/04/2024 Mariam Purcell R.N. R.N. Order Comments: 14:06 03/04/2024: Status: Unknown. Isma Recinos D.O. Reason for Study: Abdominal Internal Pain STAFF ORDERS Order Description Priority Entered Acknowledged Collected Completed IV Saline Lock 14:06 03/04/2024 14:11 03/04/2024 14:18 03/04/2024 Mariam Ornelas Shauna Ewing, D.O. R.N. R.NVeronica [Electronically signed by Isma Recinos D.O. (03/04/2024 18:50 EDT)] 2 of 2 Normal [facility] PHYS CLINICAL REPORT AND ADD ENon 03-04-2024 PHYS CLINICAL REPORT AND JOSE Narrative Physician Clinical Narrative [place] [id number] [facility] [place] [address] [id number] 03/04/2024 Patient: MITZI LAWLER Sex: Female : 1995 Age: 28y Disposition: Discharge to Home Disposition Decision Time: 16:42 03/04/2024 Departure Time: 17:13 03/04/2024 Measurements Wt: 93.0 kg, Ht/Lance: 62.0 in, BMI: 37.49 Initial Vital Sign Measured Time BP MAP HR RR O2Sat ETCO2 Temp Pain GCS RTS 10:06 03/04/2024 125/89 101 80 16 97% 97.9 F 4 Time Seen: 13:49 03/04/2024. Arrived- By private vehicle. Historian- patient. HISTORY OF PRESENT ILLNESS Chief Complaint: ABDOMINAL PAIN. This started 7 days and is still present. The patient has had nausea. REVIEW OF SYSTEMS GI: The patient has had constipation. Status: Unknown. PAST HISTORY no known problem 1 of 10 Narrative Surgeries: Gallbladder Surgery Tonsillectomy Adenoidectomy Tubal Ligation Medications: no home medications Allergies: Penicillins SOCIAL HISTORY Smoker- current status unknown. Drug use. No alcohol use. FAMILY HISTORY Negative. ADDITIONAL NOTES The nursing notes have been reviewed. PHYSICAL EXAM Appearance: Alert. No acute distress. Eyes: Pupils equal, round and reactive to light. Eyes normal inspection. ENT: Ears normal. Pharynx normal. Neck: Normal inspection. CVS: Normal heart rate. Respiratory: No respiratory distress. Abdomen: Soft. Rectal: Rectal exam normal and nontender. Skin: Normal skin color. Extremities: Extremities exhibit normal ROM. Neuro: Oriented X 3. No motor deficit. 2 of 10 Narrative LABS, X-RAYS, AND EKG Diagnostic Tests: Diagnostic tests have been ordered, with results reviewed and considered in the medical decision making process. Laboratory Tests: CBC + DIFF Final NATALIO: 03/04/2024 14:18:00 EDT MsgRcvd: 03/04/2024 14:46 EDT Lab Test Result Reference Status Received Comments 03/04/2024 14:46 CBC-COMPLETE CBC + DIFF Final EDT BLOOD COUNT 03/04/2024 14:46 WBC 10.0 x 10/UL 4.5 - 10.8 Final EDT 5.71 x 10/UL 03/04/2024 14:46 RBC 4.10 - 5.30 Final Above high normal EDT 03/04/2024 14:46 HEMOGLOBIN 15.4 g/dl 12.0 - 16.0 Final EDT 47.4 % 03/04/2024 14:46 HEMATOCRIT 34.0 - 46.0 Final Above high normal EDT 03/04/2024 14:46 MCV 83 fl 80 - 99 Final EDT 03/04/2024 14:46 MCH 27 pg 27 - 33 Final EDT 03/04/2024 14:46 MCHC 33 X10 3 32 - 36 Final EDT 03/04/2024 14:46 RDW/CV 14.1 % 12.0 - 15.6 Final EDT 3 of 10 Narrative 03/04/2024 14:46 PLATELET 291 x10/UL 150 - 450 Final EDT 03/04/2024 14:46 AUTOMATED MPV 8.6 fl 6.6 - 10.5 Final EDT DIFFERENTIAL 03/04/2024 14:46 NEUT % 66.4 % 46.0 - 76.0 Final EDT 03/04/2024 14:46 LYMPH % 26.0 % 20.0 - 45.0 Final EDT 03/04/2024 14:46 MONOS % 6.2 % 0.0 - 10.0 Final EDT 03/04/2024 14:46 EO % 0.9 % 0.0 - 7.0 Final EDT 03/04/2024 14:46 BASO % 0.5 % 0.0 - 2.0 Final EDT 03/04/2024 14:46 Lymph # 2.61 x10/UL 0.80 - 2.80 Final EDT 03/04/2024 14:46 Neut # 6.66 x10/UL 1.50 - 7.10 Final EDT 03/04/2024 14:46 Island # 0.62 x10/UL 0.20 - 1.00 Final EDT 03/04/2024 14:46 EO # 0.09 x10/UL 0.00 - 0.50 Final EDT 03/04/2024 14:46 Baso # 0.05 x10/UL 0.00 - 0.10 Final EDT 03/04/2024 14:46 MANUAL DIFF N/A New Order EDT 03/04/2024 14:46 MORPHOLOGY N/A New Order EDT 4 of 10 Narrative LIPASE Final NATALIO: 03/04/2024 14:18:00 EDT MsgRcvd: 03/04/2024 16:19 EDT Lab Test Result Reference Status Received Comments *PLEASE NOTE THAT RANGES FOR LIPASE HAVE CHANGED OF 05/25/23 DUE TO AN ASSAY 03/04/2024 LIPASE 29.0 U/L 15.0 - 78.0 Final UPDATE BY THE 16:19 EDT BLASTING CAP ASSEMBLER.THE NEW ASSAY RANGE IS 6-250 U/L, WITH A REFERENCE RANGE OF 16-77 U/L. URINE Final NATALIO: 03/04/2024 14:18:00 EDT MsgRcvd: 03/04/2024 14:45 EDT Lab Test Result Reference Status Received Comments 03/04/2024 14:45 NEGATIVE NEGATIVE Final UR EDT 03/04/2024 14:45 INTERNAL QC PASS Final EDT EXTERNAL QC 03/04/2024 14:45 YES Final DONE? EDT URINALYSIS Final NATALIO: 03/04/2024 14:18:00 EDT MsgRcvd: 03/04/2024 15:55 EDT Lab Test Result Reference Status Received Comments 5 of 10 Narrative 03/04/2024 15:55 URINALYSIS Final URINALYSIS EDT 03/04/2024 15:55 Specimen Type R New Order EDT NORMAL: 03/04/2024 15:55 Color YELLOW Final YELLOW EDT SL. CLOUDY NORMAL: 03/04/2024 15:55 Clarity Final Abnormal CLEAR EDT NORMAL: 03/04/2024 15:55 ph 6.0 Final 5.0-8.0 EDT 15 NORMAL: 03/04/2024 15:55 Protein Final Abnormal NEGATIVE EDT NORMAL: 03/04/2024 15:55 Glucose NORM Final NORMAL EDT 15 NORMAL: 03/04/2024 15:55 Ketone Final Abnor (more content not included)... Normal [facility] PHYS CODING SUMMARY CHIP SILO TENDER AB [place] 03-04-2024 PHYS CODING SUMMARY CHIP SILO TENDER CLARICET Coding Summary Coding Summary [facility] [address] [place] [address] [id number] 03/04/2024 Patient: MITZI LAWLER Sex: Female : 1995 Age: 28y ICD-10 Codes R10.84: Generalized abdominal pain R10.84: Generalized abdominal pain This is a partial abstract of information documented in the full record. Product Steward must use independent judgment in selecting codes. CPT copyright 2022 [employer]. All Rights Reserved. 1 of 1 Normal [facility] URINEon 03-04-2024 Beta HCG ( test) Ql (U) Negative Normal NEGATIVE [facility] Comment on above: Performed By: #### 2 [id number] #### [facility],[address] [place] [address] EXTERNAL QC DONE? YES Normal [facility] Comment on above: Performed By: #### 2 82785 #### [facility],[address] [place] [address] INTERNAL QC [facility] Comment on above: Performed By: #### 2 34933 #### [facility],[address] [place] [address] URINALYSISon 03-04-2024 Amorphous 2+ Normal [facility] Comment on above: Performed By: #### 2 38096 #### [facility],[address] [place] [address] Bacteria 1+ Normal [facility] Comment on above: Performed By: #### 2 78249 #### [facility],[address] [place] [address] Bilirubin Ql (U) Negative Normal NORMAL: NEGATIVE [facility] Comment on above: Performed By: #### 2 09211 #### [facility],[address] [place] [address] Casts NONE Normal [facility] Comment on above: Performed By: #### 2 11977 #### [facility],[address] [place] [address] Clarity (U) SL. CLOUDY Abnormal NORMAL: CLEAR [facility] Comment on above: Performed By: #### 2 27520 #### [facility],[address] [place], [place] [id number] Color (U) YELLOW Normal NORMAL: YELLOW [facility] Comment on above: Performed By: #### 2 16727 #### [facility],[address] [place] [address] Crystals LM Nom (Urine sed) NONE Normal [facility] Comment on above: Performed By: #### 2 59709 #### [facility],[address] [place] [address] Epi Cells FEW Normal [facility] Comment on above: Performed By: #### 2 04124 #### [facility],[address] [place] [address] ERROR DUE TO TECH ERROR Normal [facility] Comment on above: Performed By: #### 2 02423 #### [facility],[address] [place] [address] Glucose Ql (U) NORM Normal NORMAL: NORMAL [facility] Comment on above: Performed By: #### 2 43108 #### [facility],[address] [place] [address] Hemoglobin Ql (U) Negative Normal NORMAL: NEGATIVE [facility] Comment on above: Performed By: #### 2 67285 #### [facility],[address] [place] [address] 00523 Ketone 15 Abnormal NORMAL: NEGATIVE [facility] Comment on above: Performed By: #### 2 83557 #### [facility],[address] [place] [address] 29784 Leukocytes 25 Abnormal NORMAL: NEGATIVE [facility] Comment on above: Performed By: #### 2 06457 #### [facility],[address] [place] [address] Mucous NONE Normal [facility] Comment on above: Performed By: #### 2 96844 #### [facility],[address] [place] [address] Nitrite Ql (U) Negative Normal NORMAL: NEGATIVE [facility] Comment on above: Performed By: #### 2 46812 #### [facility],[address] [place] [address] pH (U) 6.0 [pH] Normal NORMAL: 5.0-8.0 [facility] Comment on above: Performed By: #### 2 00107 #### [facility],[address] [place] [address] Protein Ql (U) 15 Abnormal NORMAL: NEGATIVE [facility] Comment on above: Performed By: #### 2 46883 #### [facility],[address] [place] [address] Rbc NONE Normal 0-3/hpf [facility] Comment on above: Performed By: #### 2 52718 #### [facility],[address] [place] [address] Sp Anthony 1.020 Normal NORMAL: 1.010-1.030 [facility] Comment on above: Performed By: #### 2 26151 #### [facility],[address] [place] [address] Specimen Type R Normal [facility] Comment on above: Performed By: #### 2 90348 #### [facility],[address] [place] [address] Urinalysis dipstick W Reflex Microscopic panel (U) SEE BELOW Normal [facility] Comment on above: Result Comment: MICR OSCOPIC Performed By: #### 2 41478 #### [facility],[address] [place] [address] Urobilinog 4 Abnormal NORMAL: NORMAL [facility] Comment on above: Performed By: #### 2 25863 #### [facility],[address] [place], [place] [id number] Wbc 6-10 Normal 0-5/hpf [facility] Comment on above: Performed By: #### 2 23449 #### [address] [address] Yeast RARE Normal [facility] Comment on above: Result Comment: ==== FOLLOWING RESULTS REPORTED IN ERROR Wbc 1-5 <-- *Previously reported in error 03/04/24.1547.MG . M Rbc 0-5 <-- *Previously reported in error 03/04/24.1547.MG . M Bacteria NONE <-- *Previously reported in error 03/04/24.1547.MG . M Mucous 3+ <-- *Previously reported in error 03/04/24.1547.MG . M Yeast NONE <-- *Previously reported in error 03/04/24.1547.MG . M Performed By: #### 2 54658 #### [address] [address] VISIT SUMMARYon 03-04-2024 VISIT SUMMARY Visit Overview Visit Overview [address] [address] [id number] 03/04/2024 Patient: MITZI LAWLER Sex: Female : 1995 Age: 28y 03/04/2024 06:50 PM EDT ED Arrival:09:47 03/04/2024 EDT Status: Recent Travel:no Language:eng Adv Directive: Isolation Status: Ethnicity:N Fall Risk:no risk Infectious Disease Exposure:no Measurements:5'2 / 157.5 Self-Harm Status:no risk Sepsis Screen:negative cm 205.0 lb / 93.0 kg Chief Complaint:ABDOMINAL PAIN, CONSTIPATION, NAUSEA, (NONE), (UNABLE TO EAT OR HAVE A BOWEL MOVEMENT SINCE SUNDAY), and (SUNDAY) ALLERGIES Penicillins HOME MEDICATIONS no home medications 1 of 3 Visit Overview PAST MEDICAL HISTORY / PROBLEMS None PAST SURGICAL HISTORY Gallbladder Surgery Tonsillectomy Adenoidectomy Tubal Ligation SOCIAL HISTORY Nutritional assessment: No deficits Learning needs: No barriers Smoking status: Yes Alcohol use: No Drug use: Yes ED COURSE MEDICATIONS GIVEN IN EMERGENCY DEPARTMENT IV SITE INFORMATION INTAKE OUTPUT REASSESMENT (most recent) 13:25 03/04/24. Ambulatory to room. GENERAL / NEURO / PSYCH: Alert. Oriented X 4. Appears in no acute distress. HEENT: Mucous membranes are pink. GI / : The patient has had intermittent episodes of nausea. Abdomen soft. Abdominal tenderness diffusely. Diminished bowel sounds in all quadrants. No vaginal bleeding. No vaginal discharge. Last BM was Sunday. SKIN: Skin is warm and dry. VITAL SIGNS First Vitals Last Vitals Temp 10:06 03/04/24 97.9 F Temp 17:10 03/04/24 2 of 3 Visit Overview First Vitals Last Vitals BP 10:06 03/04/24 125/89 BP 17:10 03/04/24 118/87 HR 10:06 03/04/24 80 HR 17:10 03/04/24 61 RR 10:06 03/04/24 16 RR 17:10 03/04/24 17 O2 Sat 10:06 03/04/24 97% O2 Sat 17:10 03/04/24 98% Pain 10:06 03/04/24 4 Pain 17:10 03/04/24 3 ETCO2 10:06 03/04/24 ETCO2 17:10 03/04/24 GCS 10:06 03/04/24 GCS 17:10 03/04/24 RTS 10:06 03/04/24 RTS 17:10 03/04/24 PROCEDURES NURSING INTERVENTIONS LABS / STUDIES LABS / STUDIES ORDERED CBC w Diff CMP CT ABD/PEL w IV Cont Lipase Urinalysis Urine - HCG CLINICAL IMPRESSION ACUTE GENERALIZED ABDOMINAL PAIN OF UNKNOWN CAUSE ACUTE NONTRAUMATIC GENERALIZED ABDOMINAL PAIN 3 of 3 Normal [facility] CBC + DIFFon 11-26-2023 Baso # 0.03 x10EE3/UL Normal 0.00 - 0.10 [facility] Comment on above: Performed By: #### 2 34033 #### [facility],[address] [place] [address] Basophils/100 WBC (Bld) 0.2 % Normal 0.0 - 2.0 [facility] Comment on above: Performed By: #### 2 58589 #### [place] [address] CBC + DIFF Normal [facility] Comment on above: Result Comment: CBC- COMPLETE BLOOD COUNT Performed By: #### 2 89707 #### [place] [address] EO # 0.20 x10EE3/UL Normal 0.00 - 0.50 [facility] Comment on above: Performed By: #### 2 09246 #### [place] [address] Eosinophils/100 WBC (Bld) 1.7 % Normal 0.0 - 7.0 [facility] Comment on above: Performed By: #### 2 20575 #### [place] [address] Erythrocyte distribution width (RBC) [Ratio] 14.6 % Normal 12.0 - 15.6 [facility] Comment on above: Performed By: #### 2 26441 #### [place] [address] Hematocrit (Bld) [Volume fraction] 42.9 % Normal 34.0 - 46.0 [facility] Comment on above: Performed By: #### 2 33672 #### [place] [address] Hemoglobin (Bld) [Mass/Vol] 14.3 g/dL Normal 12.0 - 16.0 [facility] Comment on above: Performed By: #### 2 72630 #### [place] [address] Lymph # 3.53 x10EE3/UL High 0.80 - 2.80 [facility] Comment on above: Performed By: #### 2 42253 #### [facility],[address] [place] [address] Lymphocytes/100 WBC (Bld) 30.5 % Normal 20.0 - 45.0 [facility] Comment on above: Performed By: #### 2 42720 #### [facility],[address] [place] [address] MANUAL DIFF N/A Normal [facility] Comment on above: Performed By: #### 2 61666 #### [facility],[address] [place] [address] MCH (RBC) [Entitic mass] 27 pg Normal 27 - 33 [facility] Comment on above: Performed By: #### 2 18932 #### [facility],[address] [place] [address] MCHC 33 X10 3 Normal 32 - 36 [facility] Comment on above: Performed By: #### 2 23295 #### [facility],[address] [place] [address] MCV (RBC) [Entitic vol] 82 fL Normal 80 - 99 [facility] Comment on above: Performed By: #### 2 15041 #### [facility],[address] [place] [address] Island # 0.82 x10EE3/UL Normal 0.20 - 1.00 [facility] Comment on above: Performed By: #### 2 60737 #### [facility],[address] [place] [address] MONOS % 7.1 % Normal 0.0 - 10.0 [facility] Comment on above: Performed By: #### 2 41418 #### [place] [address] Morphology Ayan (Bld) [Interp] N/A Normal [facility] Comment on above: Performed By: #### 2 80673 #### [facility],[address],[place] [address] Neut # 7.02 x10EE3/UL Normal 1.50 - 7.10 [facility] Comment on above: Performed By: #### 2 79082 #### [facility],[address] [place] [address] 18684 Neutrophils/100 WBC (Bld) 60.5 % Normal 46.0 - 76.0 [facility] Comment on above: Performed By: #### 2 42687 #### [facility],[address] [place] [address] 44692 PLATELET 284 x10EE3/UL Normal 150 - 450 [facility] Comment on above: Performed By: #### 2 54496 #### [facility],[address] [place] [address] 56875 Platelet mean volume (Bld) [Entitic vol] 8.4 fL Normal 6.6 - 10.5 [facility] Comment on above: Result Comment: AUTO MATED DIFFERENTIAL Performed By: #### 2 38254 #### [facility],[address] [place] [address] 23945 RBC 5.24 x 10EE6/UL Normal 4.10 - 5.30 [facility] Comment on above: Performed By: #### 2 92411 #### [facility],[address] [place] [address] 22520 WBC 11.6 x 10EE3/UL High 4.5 - 10.8 [facility] Comment on above: Performed By: #### 2 93420 #### [facility],[address] [place] [address] 65769 CMP with eGFRon 11-26-2023 AGE 28 years Normal [facility] Comment on above: Performed By: #### 2 84315 #### [facility],[address] [place] [address] 91216 Albumin [Mass/Vol] 3.3 g/dL Low 3.4 - 5.0 [facility] Comment on above: Performed By: #### 2 70454 #### [facility],[address] [place] [address] 40534 Albumin/Globulin [Mass ratio] 0.8 {ratio} Low 0.9 - 1.6 [facility] Comment on above: Performed By: #### 2 81381 #### [facility],[address] [place] [address] 24221 ALK PHOS 104 U/L Normal 46 - 116 [facility] Comment on above: Performed By: #### 2 20263 #### [facility],[address] [place] [address] 68653 ALT [Catalytic activity/Vol] 9 U/L Low 16 - 63 [facility] Comment on above: Performed By: #### 2 82796 #### [facility],[address] [place] [address] 57213 Anion gap [Moles/Vol] 12 mmol/L Normal 10 - 20 [facility] Comment on above: Performed By: #### 2 43606 #### [facility],[address] [place] [address] 06821 AST [Catalytic activity/Vol] 12 U/L Low 13 - 39 [facility] Comment on above: Performed By: #### 2 16379 #### [facility],[address] [place] [address] 42459 B/C RATIO 10 ratio Normal 0 - 30 [facility] Comment on above: Performed By: #### 2 94298 #### [facility],[address] [place] [address] 23077 Bilirubin [Mass/Vol] 0.2 mg/dL Normal 0.2 - 1.0 [facility] Comment on above: Performed By: #### 2 17302 #### [facility],[address] [place] [address] 72429 Calcium [Mass/Vol] 9.4 mg/dL Normal 8.5 - 10.1 [facility] Comment on above: Performed By: #### 2 96470 #### [facility],[address] [place] [address] 37990 Chloride [Moles/Vol] 102 mmol/L Normal 98 - 107 [facility] Comment on above: Performed By: #### 2 03551 #### [facility],[address] [place] [address] 33635 CMP with eGFR Normal [facility] Comment on above: Result Comment: COMP REHENSIVE METABOLIC PANEL Performed By: #### 2 84950 #### [facility],[address] [place] [address] 76083 CO2 [Moles/Vol] 27.3 mmol/L Normal 21.0 - 32.0 [facility] Comment on above: Performed By: #### 2 86492 #### [facility],[address] [place] [address] 47874 Creatinine [Mass/Vol] 0.77 mg/dL Normal 0.55 - 1.02 [facility] Comment on above: Performed By: #### 2 97630 #### [facility],[address] [place] [address] 40509 GFR/1.73 sq M.predicted among non-blacks MDRD (S/P/Bld) [Vol rate/Area] mL/min/{1.73_m2} Normal 60 - 999 [facility] Comment on above: Performed By: #### 2 54962 #### [facility],[address] [place] [address] 24824 Result Comment: ACCO RDING TO THE NATIONAL KIDNEY DISEASE EDUCATION PROGRAM(NKDE), A NORMAL eGFR IS A VALUE GREATER THAN OR EQUAL TO 60 ML/MIN/1.73 SQ METERS. CHRONIC KIDNEY DISEASE: <60mL/MIN/1.73 SQ METERS KIDNEY FAILURE: <15mL/MIN/1.73 SQ METERS THIS TEST SHOULD ONLY BE USED FOR PATIENTS 18 YEARS OF AGE AND OLDER. Globulin (S) [Mass/Vol] 3.9 g/dL High 1.5 - 3.8 [facility] Comment on above: Performed By: #### 2 79817 #### [facility],[address] [place] [address] 54836 Glucose [Mass/Vol] 107 mg/dL High 74 - 106 [facility] Comment on above: Performed By: #### 2 62890 #### [facility],[address] [place] [address] 22121 Potassium [Moles/Vol] 3.2 mmol/L Low 3.5 - 5.1 [facility] Comment on above: Performed By: #### 2 42744 #### [facility],[address] [place] [address] 66748 Protein [Mass/Vol] 7.2 g/dL Normal 6.4 - 8.2 [facility] Comment on above: Performed By: #### 2 94747 #### [facility],[address] [place] [address] 75749 Sodium [Moles/Vol] 138 mmol/L Normal 136 - 145 [facility] Comment on above: Performed By: #### 2 10155 #### [facility],[address] [place] [address] 71305 Urea nitrogen [Mass/Vol] 8 mg/dL Normal 7 - 18 [facility] Comment on above: Performed By: #### 2 12508 #### [facility],[address] [place] [address] ABDOMEN/PELVIS [facility] 2023 CT ABDOMEN/PELVIS [place] [address] Patient: MITZI LAWLER Phone#: : 1995 Age: 28 Gender: F Pt. Type: ER Account: [id number] Location: [facility] Ordering: DR. GRACIE SHARMA Exam Date: 11/26/2023/0:40 Family Phys: Charge Code: 237566 Physician: Cooke Order #: [id number] Dose#: 33.4 PROCEDURE: CT ABDOMEN/PELVIS WITH CONTRAST COMPARISON: None. INDICATIONS: Abdominal pain. TECHNIQUE: After obtaining the patient's consent, CT images were created with non-ionic intravenous contrast material. All CT scans at this facility use dose modulation, iterative reconstruction, and/or weight based dosing when appropriate to reduce radiation dose to as low as reasonably achievable. IV CONTRAST: Omnipaque 350,80ml TOTAL DOSE: 33.4 CTDIvol(mGy) FINDINGS: LIVER: Normal. No enlargement, atrophy, abnormal density, or significant focal lesion. BILIARY: The gallbladder is absent. Surgical clips are present in the gallbladder fossa. PANCREAS: Normal. No lesion, fluid collection, ductal dilatation, or atrophy. SPLEEN: Normal. No enlargement or focal lesion. KIDNEYS: Normal. No mass, obstruction, or calcification. ADRENALS: Normal. No mass or enlargement. AORTA/VASCULAR: Normal. No aneurysm or dissection. RETROPERITONEUM: Normal. No mass or adenopathy. BOWEL/MESENTERY: Colonic diverticula are present. No visible mass, obstruction, or bowel wall thickening. ABDOMINAL WALL: Small umbilical hernia with fat. URINARY BLADDER: Normal. No visible focal wall thickening, lesion, or calculus. PELVIC NODES: Normal. No adenopathy. PELVIC ORGANS: Normal. No visible mass. Pelvic organs appropriate for patient age. BONES: Normal. No bony lesion or fracture. LUNG BASES: Normal. No visible pulmonary or pleural disease. OTHER: Negative. Continued Report - Page 2 of 2 Patient: MITZI LAWLER Phone#: : 1995 Age: 28 Gender: F Pt. Type: ER Account: [id number] Location: [facility] Ordering: DR. GRACIE SHARMA Exam Date: 11/26/2023/0:40 Family Phys: Charge Code: 902729 Physician: Cooke Order #: [id number] Dose#: 33.4 CONCLUSION: 1. There is no evidence of acute abdominal or pelvic abnormality. Dictated by: Paola Seth MD on 11/26/2023 at 14:31 Approved by: Paola Seth MD on 11/26/2023 at 14:36 Normal [facility] LIPASEon 11-26-2023 Lipase [Catalytic activity/Vol] 39.0 U/L Normal 15.0 - 78.0 [facility] Comment on above: Result Comment: *PLE ASE NOTE THAT RANGES FOR LIPASE HAVE CHANGED OF 05/25/23 DUE TO AN ASSAY UPDATE BY THE BLASTING CAP ASSEMBLER.THE NEW ASSAY RANGE IS 6-250 U/L, WITH A REFERENCE RANGE OF 16-77 U/L. Performed By: #### 2 92112 #### [facility],[address] [place] [address] URINEon 11-26-2023 Beta HCG ( test) Ql (U) Negative Normal NEGATIVE [facility] Comment on above: Performed By: #### 2 33410 ####[facility],[address] [place] [address] EXTERNAL QC DONE? YES Normal [facility] Comment on above: Performed By: #### 2 70187 ####[facility],[address] [place] [address] INTERNAL QC PASS Normal [facility] Comment on above: Performed By: #### 2 62933 ####[facility],[address] [place] [address] URINALYSISon 11-26-2023 Amorphous NONE Normal [facility] Comment on above: Performed By: #### 2 79219 ####[facility],[address] [place] [address] Bacteria 1+ Normal [facility] Comment on above: Performed By: #### 2 87597 ####[facility],[address] [place] [address] Bilirubin Ql (U) Negative Normal NORMAL: NEGATIVE [facility] Comment on above: Performed By: #### 2 66302 ####[facility],[address] [place] [address] Casts NONE Normal [facility] Comment on above: Performed By: #### 2 15599 ####[facility],[address] [place] [address] Clarity (U) sl.cloudy Normal NORMAL: CLEAR [facility] Comment on above: Performed By: #### 2 05841 ####[facility],[address] [place] [address] 42913 Color (U) yellow Normal NORMAL: YELLOW [facility] Comment on above: Performed By: #### 2 20257 ####[facility],[address] [place] [address] 87464 Crystals LM Nom (Urine sed) NONE Normal [facility] Comment on above: Performed By: #### 2 06223 ####[facility],[address] [place] [address] 36177 Epi Cells FEW Normal [facility] Comment on above: Performed By: #### 2 53892 ####[facility],[address] [place] [address] 41240 Glucose Ql (U) NORM Normal NORMAL: NORMAL [facility] Comment on above: Performed By: #### 2 83105 ####[facility],[address] [place] [address] 09137 Hemoglobin Ql (U) 10 Abnormal NORMAL: NEGATIVE [facility] Comment on above: Performed By: #### 2 07785 ####[facility],[address] [place] [address] 60637 Ketone Negative Normal NORMAL: NEGATIVE [facility] Comment on above: Performed By: #### 2 64211 ####[facility],[address] [place] [address] 62106 Leukocytes 500 Abnormal NORMAL: NEGATIVE [facility] Comment on above: Performed By: #### 2 86001 ####[facility],[address] [place] [address] 72607 Mucous 1+ Normal [facility] Comment on above: Performed By: #### 2 19173 ####[facility],[address] [place] [address] 22239 Nitrite Ql (U) Negative Normal NORMAL: NEGATIVE [facility] Comment on above: Performed By: #### 2 41739 ####[facility],[address] [place] [address] pH (U) 6 [pH] Normal NORMAL: 5.0-8.0 [facility] Comment on above: Performed By: #### 2 39480 ####[facility],[address] [place] [address] Protein Ql (U) 15 Abnormal NORMAL: NEGATIVE [facility] Comment on above: Performed By: #### 2 30064 ####[facility],[address] [place] [address] Rbc 0-5 Normal 0-3/hpf [facility] Comment on above: Performed By: #### 2 07401 ####[facility],[address] [place] [address] Sp Anthony 1.015 Normal NORMAL: 1.010-1.030 [facility] Comment on above: Performed By: #### 2 50181 ####[facility],[address] [place] [address] Specimen Type Clean catch Normal [facility] Comment on above: Performed By: #### 2 12102 ####[facility],[address] [place] [address] Urinalysis dipstick W Reflex Microscopic panel (U) SEE BELOW Normal [facility] Comment on above: Result Comment: MICR OSCOPIC Performed By: #### 2 42099 ####[facility],[address] [place] [address] Urobilinog 1 Abnormal NORMAL: NORMAL [facility] Comment on above: Performed By: #### 2 12293 ####[facility],[address] [place] [address] Wbc 11-15 Normal 0-5/hpf [facility] Comment on above: Performed By: #### 2 39323 ####[facility],[address] [place] [address] Yeast NONE Normal [facility] Comment on above: Performed By: #### 2 50502 ####[facility],[address] [place] [address] 94080 CNOVon 06-04-2023 CNOV Office Visit (UCWSTR) MITZI LAWLER ([id number]) 1995 F Date Time Provider Department 06/04/23 11:30 AM BONNIE NAVARRO [facility] During your visit today, we recorded the following information about you: Temperature Pulse Respiration Blood pressure 97.3 degrees 87/minute 21/minute 120/68 Weight 102.2 kg Bonnie Navarro APRN.IT HELP DESK MANAGER 06/04/2023 12:28 PM Signed Subjective HPI HPI Mitzi Lawler is a [...] 06/24/2020t had 2 previous C sections in [place]. She desires a . I have asked her to obtain her operative report from her last delivery in [place]. I have also asked the patient to [...] childhood ALLERGIES Penicillins, Bupropion, and Cefprozil MEDICATIONS trimethoprim-polymyx in (POLYTRIM) 10,000 unit- 1 mg/mL ophthalmic solution [...] Right conjunctiva is injected. Left eye: Left c (more content not included)... Normal [facility] MITZI LAWLER ([id number]) 1995 F Date Time Provider Department 01/13/23 YANICK VICTOR [facility] During your visit today, we recorded the following information about you: Yanick Victor APRN.[facility] 01/13/2023 8:08 AM Signed Patient is on the correct antibiotic according to urine culture. If symptoms do not seem to be improving patient needs to follow-up with primary care provider Yenifer Cobos 01/13/2023 8:12 AM Signed Left message for patient to return call. Yenifer Myers 01/14/2023 8:51 AM Signed Left message for patient to return call. Rosi Burgess MA 01/15/2023 8:15 AM Signed Third and final call attempt, left VM instructing patient to return call to receive results. Letter will also be mailed to listed address today. Rosi Guillermo MA Allergies As of Date: 01/13/2023 Noted Allergy Reaction PENICILLINS 11/14/2018 10 - Anaphylaxis Comments: All cillins BUPROPION 07/21/2019 11 - Vomiting CEFPROZIL 07/21/2019 9 - Itching Date Reviewed: 01/09/2023 Reviewed by: Juan R Szymanski APRN.IT HELP DESK MANAGER - Fully Assessed Reason for Visit: Results [95] Prescriptions as of 01/15/2023 - fluticasone (FLONASE) 50 mcg/actuation nasal spray Use 2 Sprays in each nostril once daily. Rinse mouth after use. - benzonatate (TESSALON PERLE) 100 mg capsule Take 2 capsules by mouth three times daily as needed. - mirtazapine (REMERON) 30 mg tablet Take 1 tablet by mouth daily at bedtime. - gabapentin (NEURONTIN) 300 mg capsule Take 1 capsule by mouth twice daily for 30 days. - lamoTRIgine (LAMICTAL) 25 mg tablet Take 1 tablet by mouth twice daily. - ARIPiprazole (ABILIFY) 15 mg tablet Take 1 tablet by mouth once daily. - hydrOXYzine pamoate (VISTARIL) 50 mg capsule Take 50 mg by mouth three times daily as needed. 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]06/24/2020 Patient request for diagnostic testing [Z01.89] 06/24/2020 Rh negative state in antepartum period [O26.899*06/30/2020 11/05/2020 Bipolar depression (HCC) [F31.9] 10/21/2020 Major depressive disorder [F32.9] 10/21/2020 Obesity, Class III, BMI 40-49.9 (morbid obesity*11/05/2020 Smoker [F17.200] 11/05/2020 Snoring [R06.83] 11/05/2020 Letter Text Encounter Status:Closed by ROSI GUILLERMO on 01/15/23 [facility] Bacteria Ur Culton 3 Bacteria identified Cx Nom (U) ORGANISM ID: 1 >=100,000 CFU/ml Escherichia coli ORGANISM ID: 2 50,000-<100,000 CFU/ml Klebsiella oxytoca ORGANISM ID: 1 (ESCHERICHIA COLI) ANTIBIOTIC INTERPRETATION ANGUS STATUS REFERENCE RANGE Ampicillin S 4 F Susceptible <=8 , Intermediate >8 , Resistant >16 Cefazolin S <=4 F Susceptible 0-16 , Intermediate <0 or >16 , Resistant >16 Ceftriaxone S <=1 F Susceptible <=1 , Intermediate >1 , Resistant >=4 Cefepime S <=1 F Susceptible <=2 , Susceptible-Dose Dependent >2 , Resistant >=16 Ertapenem S <=0.5 F Susceptible <=0.5 , Intermediate >.5 , Resistant >1 Meropenem S <=0.25 F Susceptible <=1 , Intermediate >1 , Resistant >2 Ampicillin/Sulbact S <=2 F Susceptible <=8 , Intermediate >8 , Resistant >16 Piperacillin/Tazobac S <=4 F Susceptible <=16 , Intermediate >16 , Resistant >64 Gentamicin S <=1 F Susceptible <=4 , Intermediate >4 , Resistant >8 Tobramycin S <=1 F Susceptible <=4 , Intermediate >4 , Resistant >8 Trimeth sulfameth R >=320 F Susceptible <=40 , Resistant >40 Ciprofloxacin S <=0.25 F Susceptible <0.5 , Intermediate >=.5 , Resistant >=1 Nitrofurantoin S <=16 F Susceptible <=32 , Intermediate >32 , Resistant >64 ORGANISM ID: 2 (KLEBSIELLA OXYTOCA) ANTIBIOTIC INTERPRETATION ANGUS STATUS REFERENCE RANGE Ampicillin R >=32 F Susceptible <=8 , Intermediate >8 , Resistant >16 Cefazolin S <=4 F Susceptible 0-16 , Intermediate <0 or >16 , Resistant >16 Ceftriaxone S <=1 F Susceptible <=1 , Intermediate >1 , Resistant >=4 Cefepime S <=1 F Susceptible <=2 , Susceptible-Dose Dependent >2 , Resistant >=16 Ertapenem S <=0.5 F Susceptible <=0.5 , Intermediate >.5 , Resistant >1 Meropenem S <=0.25 F Susceptible <=1 , Intermediate >1 , Resistant >2 Ampicillin/Sulbact S 8 F Susceptible <=8 , Intermediate >8 , Resistant >16 Piperacillin/Tazobac S <=4 F Susceptible <=16 , Intermediate >16 , Resistant >64 Gentamicin S <=1 F Susceptible <=4 , Intermediate >4 , Resistant >8 Tobramycin S <=1 F Susceptible <=4 , Intermediate >4 , Resistant >8 Trimeth sulfameth S <=20 F Susceptible <=40 , Resistant >40 Ciprofloxacin S <=0.25 F Susceptible <0.5 , Intermediate >=.5 , Resistant >=1 Nitrofurantoin S 32 F Susceptible <=32 , Intermediate >32 , Resistant >64 Abnormal [place] Comment on above: Performed By: #### 6 30-4 #### [facility] CLIA [id number] [address] [place] [address] OF [facility] CNOVon 01-09-2023 CNOV Office Visit (UCWSTR) MITZI LAWLER ([id number]) 1995 F Date Time Provider Department 01/09/23 3:45 PM JUAN R SZYMANSKI [facility] During your visit today, we recorded the following information about you: Temperature Pulse Respiration Blood pressure 97.9 degrees 64/minute 16/minute 116/68 Weight 96.2 kg Juan R Szymanski APRN.IT HELP DESK MANAGER 01/09/2023 4:00 PM Signed Subjective HPI A nontoxic appearing female presents to urgent care with chief complaint of possible UTI. Duration of symptoms 1 week. Associated symptoms dysuria, frequency, and urgency. Patient has history of UTIs in past with similar signs and symptoms. Patient denies the use of any pqrg-eyf-ogwxeav medications or home remedies for symptom management. [...] 06/24/2020t had 2 previous C sections in [place]. She desires a . I have asked her to obtain her operative report from her last delivery in [place]. I have also asked the patient to [...] cough, hemoptysis, sputum production, shortness of breath, (more content not included)... Normal [place] UA DIP, URINE (POC)on 2022 BILIRUBIN UA (POCT) Negative Negative [facility] CLARITY UA (POCT) Cloudy [facility] COLOR UA (POCT) Yellow [facility] GLUCOSE UA (POCT) Negative Negative mg/dL [facility] HEMOGLOBIN/BLOOD UA (POCT) Small Abnormal Negative [facility] KETONE UA (POCT) Negative Negative mg/dL [facility] LEUKOCYTES UA (POCT) Small Abnormal Negative [facility] NITRITE UA (POCT) Positive Abnormal Negative [facility] PH UA (POCT) 5.0 4.5 - 8.0 [facility] Protein Ql (U) Negative Negative mg/dL [facility] SPECIFIC GRAVITY UA (POCT) 1.015 1.005 - 1.030 [facility] UROBILINOGEN UA (POCT) 0.2 E.U./dL Normal E.U./dL [facility] ACETAMINOPHENon 11-27-2022 Acetaminophen [Mass/Vol] ug/mL Normal 10.0 - 30.0 [facility] Comment on above: Performed By: #### A CETA #### [place] [id number] ALCOHOLon 11-27-2022 Ethanol [Mass/Vol] mg/dL Normal [facility] Comment on above: Result Comment: FOR MEDICAL USE ONLY. . REF VALUES <10 Performed By: #### A LC #### [place] [id number] CBC AND DIFFERENTIALon 11-27 % AUTOMATED IMMATURE GRAN 0.4 % Normal 0.0 - 0.9 [facility] Comment on above: Result Comment: Deidre ture Granulocyte Count (IG) includes promyelocytes, myelocytes and metamyelocytes but does not include bands. Percent differential counts (%) should be interpreted in the context of the absolute cell counts (cells/L). Performed By: #### C BCDF #### [address] [address] Basophils (Bld) [#/Vol] 0.04 10*3/uL Normal 0.00 - 0.10 [facility] Comment on above: Performed By: #### C BCDF #### [address] [address] Basophils/100 WBC (Bld) 0.3 % Normal 0.0 - 2.0 [facility] Comment on above: Performed By: #### C BCDF #### [address] [address] Eosinophils (Bld) [#/Vol] 0.10 10*3/uL Normal 0.00 - 0.70 [facility] Comment on above: Performed By: #### C BCDF #### [address] [address] Eosinophils/100 WBC (Bld) 0.8 % Normal 0.0 - 6.0 [facility] Comment on above: Performed By: #### C BCDF #### [address] [address] Erythrocyte distribution width (RBC) [Ratio] 15.4 % High 11.5 - 14.5 [facility] Comment on above: Performed By: #### C BCDF #### [address] [address] Hematocrit (Bld) [Volume fraction] 42.2 % Normal 36.0 - 46.0 [facility] Comment on above: Performed By: #### C BCDF #### [address] [address] Hemoglobin (Bld) [Mass/Vol] 12.9 g/dL Normal 12.0 - 16.0 [facility] Comment on above: Performed By: #### C BCDF #### [address] [address] Lymphocytes (Bld) [#/Vol] 2.80 10*3/uL Normal 1.20 - 4.80 [facility] Comment on above: Performed By: #### C BCDF #### [address] [address] Lymphocytes/100 WBC (Bld) 23.0 % Normal 13.0 - 44.0 [facility] Comment on above: Performed By: #### C BCDF #### [address] [address] MCHC (RBC) [Mass/Vol] 30.6 g/dL Low 32.0 - 36.0 [facility] Comment on above: Performed By: #### C BCDF #### [address] [address] MCV (RBC) [Entitic vol] 79 fL Low 80 - 100 [facility] Comment on above: Performed By: #### C BCDF #### [address] [address] Monocytes (Bld) [#/Vol] 0.51 10*3/uL Normal 0.10 - 1.00 [facility] Comment on above: Performed By: #### C BCDF #### [address] [address] Monocytes/100 WBC (Bld) 4.2 % Normal 2.0 - 10.0 [facility] Comment on above: Performed By: #### C BCDF #### [address] [address] Neutrophils (Bld) [#/Vol] 8.67 10*3/uL High 1.20 - 7.70 [facility] Comment on above: Result Comment: Perc ent differential counts (%) should be interpreted in the context of the absolute cell counts (cells/L). Performed By: #### C BCDF #### [address] [address] Neutrophils/100 WBC (Bld) 71.3 % Normal 40.0 - 80.0 [facility] Comment on above: Performed By: #### C BCDF #### [address] [address] Platelets (Bld) [#/Vol] 317 10*3/uL Normal 150 - 450 [facility] Comment on above: Performed By: #### C BCDF #### [address] [address] RBC 5.32 x10E12/L High 4.00 - 5.20 [facility] Comment on above: Performed By: #### C BCDF #### [address] [address] WBC (Bld) [#/Vol] 12.2 10*3/uL High 4.4 - 11.3 [facility] Comment on above: Performed By: #### C BCDF #### [address] [address] COMPREHENSIVE PANELon 2022 Albumin [Mass/Vol] 3.8 g/dL Normal 3.4 - 5.0 [facility] Comment on above: Performed By: #### C MP #### [facility] [address] [place] [address] ALP [Catalytic activity/Vol] 91 U/L Normal 33 - 110 [facility] Comment on above: Performed By: #### C MP #### [address] [address] ALT [Catalytic activity/Vol] 5 U/L Low 7 - 45 [facility] Comment on above: Result Comment: Marni ents treated with Sulfasalazine may generate falsely decreased results for ALT. Performed By: #### C MP #### [address] [address] Anion gap [Moles/Vol] 11 mmol/L Normal 10 - 20 [facility] Comment on above: Performed By: #### C MP #### [place] [id number] AST [Catalytic activity/Vol] 9 U/L Normal 9 - 39 [facility] Comment on above: Performed By: #### C MP #### [place] [id number] Bilirubin [Mass/Vol] 0.2 mg/dL Normal 0.0 - 1.2 [facility] Comment on above: Performed By: #### C MP #### [address] [address] Calcium [Mass/Vol] 9.1 mg/dL Normal 8.6 - 10.3 [facility] Comment on above: Performed By: #### C MP #### [address] [address] Chloride [Moles/Vol] 102 mmol/L Normal 98 - 107 [facility] Comment on above: Performed By: #### C MP #### [address] [address] Creatinine [Mass/Vol] 0.68 mg/dL Normal 0.50 - 1.05 [facility] Comment on above: Performed By: #### C MP #### [address] [address] eGFR FEMALE >90 Normal >90 [facility] Comment on above: Result Comment: CALC ULATIONS OF ESTIMATED GFR ARE PERFORMED USING THE 2020 CKD-EPI STUDY REFIT EQUATION WITHOUT THE RACE VARIABLE FOR THE IDMS-TRACEABLE CREATININE METHODS. https://jasn.asnjournals.org/content//ASN.3642275 988 Performed By: #### C MP #### [address] [address] Glucose [Mass/Vol] 180 mg/dL High 74 - 99 [facility] Comment on above: Performed By: #### C MP #### [address] [address] HCO3 (Bld) [Moles/Vol] 26 mmol/L Normal 21 - 32 [facility] Comment on above: Performed By: #### C MP #### [address] [address] Potassium [Moles/Vol] 3.1 mmol/L Low 3.5 - 5.3 [facility] Comment on above: Performed By: #### C MP #### [address] [address] Protein [Mass/Vol] 6.8 g/dL Normal 6.4 - 8.2 [facility] Comment on above: Performed By: #### C MP #### [address] [address] Sodium [Moles/Vol] 136 mmol/L Normal 136 - 145 [facility] Comment on above: Performed By: #### C MP #### [address] [address] Urea nitrogen [Mass/Vol] 6 mg/dL Normal 6 - 23 [facility] Comment on above: Performed By: #### C MP #### [address] [address] DRUG SCREEN,URINEon 11-28-19 23 AMPHETAMINE SCREEN,U Negative Normal NEGATIVE [facility] Comment on above: Result Comment: CUTO FF LEVEL: 500 NG/ML Cross-reactivity has been reported with high concentrations of the following drugs: buproprion, chloroquine, chlorpromazine, ephedrine, mephentermine, fenfluramine, phentermine, phenylpropanolamine, pseudoephedrine, and propranolol. Performed By: #### D RUG3 #### [place] [address] BARBITURATES SCREEN,U Negative Normal NEGATIVE [facility] Comment on above: Result Comment: CUTO FF LEVEL: 200 NG/ML Performed By: #### D RUG3 #### [place] [address] BENZODIAZEPINES SCREEN,U Negative Normal NEGATIVE [facility] Comment on above: Result Comment: CUTO FF LEVEL: 200 NG/ML Performed By: #### D RUG3 #### [place] [address] CANNABINOIDS SCREEN,U Positive Abnormal NEGATIVE [facility] Comment on above: Result Comment: CUTO FF LEVEL: 50 NG/ML Performed By: #### D RUG3 #### [place] [address] COCAINE METABOLITE SCREEN,U Negative Normal NEGATIVE [facility] Comment on above: Result Comment: CUTO FF LEVEL: 150 NG/ML Performed By: #### D RUG3 #### [place] [address] DRUG SCREEN COMMENT SEE BELOW Normal [facility] Comment on above: Result Comment: Drug screen results are presumptive and should not be used to assess compliance with prescribed medication. Contact the performing [facility] laboratory to add-on definitive confirmatory testing if clinically indicated. . Toxicology screening results are reported qualitatively. The concentration must be greater than or equal to the cutoff to be reported as positive. The concentration at which the screening test can detect an individual drug or metabolite varies. The absence of expected drug(s) and/or drug metabolite(s) may indicate non-compliance, inappropriate timing of specimen collection relative to drug administration, poor drug absorption, diluted/adulterated urine, or limitations of testing. For medical purposes only; not valid for forensic use. . Interpretive questions should be directed to the laboratory medical directors. Performed By: #### D RUG3 #### [place] [address] FENTANYL SCREEN,URINE Negative Normal NEGATIVE [facility] Comment on above: Result Comment: CUTO FF LEVEL: 5 NG/ML Performed By: #### D RUG3 #### [place] [address] METHADONE SCREEN,U Negative Normal NEGATIVE [facility] Comment on above: Result Comment: CUTO FF LEVEL: 150 NG/ML The metabolite G-psuvn-bwnqnuwnlyyslk (LAAM) is not detected by this method in concentrations that would be found in the urine of patients on LAAM therapy. Performed By: #### D RUG3 #### [place] [address] OPIATES SCREEN,U Negative Normal NEGATIVE [facility] Comment on above: Result Comment: CUTO FF LEVEL: 300 NG/ML The opiate screen does not detect fentanyl, meperidine, or tramadol. Oxycodone is not consistently detected (refer to Oxycodone Screen, Urine result). Performed By: #### D RUG3 #### [place] [address] OXYCODONE SCREEN,U Negative Normal NEGATIVE [facility] Comment on above: Result Comment: CUTO FF LEVEL: 100 NG/ML This test will accurately detect both oxycodone and oxymorphone. Performed By: #### D RUG3 #### [place] [address] PCP SCREEN,U Negative Normal NEGATIVE [facility] Comment on above: Result Comment: CUTO FF LEVEL: 25 NG/ML Cross-reactivity has been reported with dextromethorphan. Performed By: #### D RUG3 #### [place] [address] HCG,BETA-QUANTITATIVEon 07-0 HCG,BETA-QUANTITATIV E <2 Normal [facility] Comment on above: Result Comment: . Total HCG measurement is performed using the Julio César Rikki Access Immunoassay which detects intact HCG and free beta HCG subunit. . This test is not indicated for use as a tumor marker. HCG testing is performed using a different test methodology at [facility] than other [facility] [facility]. Direct result comparison should only be made within the same method. REF VALUES NON FEMALE <5 MALES <5 Performed By: #### H CGQU #### [address] [place] [address] Provider Note - ED v3on Provider Note - ED v3 Provider Note: Results/Vital Signs: Pediatric Clinical Scoring (KAROLINE) is no recent KAROLINE charted on this account Chart Review: ED NOTES ED NOTES: Source of Information: Patient. Patient's sister. EMR was reviewed for previous records. - HPI: Anxiety. This 27-year-old white female with history of anxiety states that she has had at least 3 anxiety attacks this evening. She states that she currently is not taking any medication long history of anxiety. She herself denies a any suicidal homicidal ideation. Sister states that the patient has thoughts of suicide and homicide and could not guarantee the fact that she will be alone with her child and safe so she brought the patient in because of concern for possible suicide. Patient does admit to previous psychiatric hospitalizations for her anxiety. - PMH: Anxiety, depression, social anxiety, PTSD, chronic pain PSH: x3, T&A, bilateral tube ligation, cholecystectomy, ear tympanostomy tubes x3 Social Hx: The patient denies any use of tobacco, alcohol or illicit drugs. Fam: MEDS: Ayts-tya-jhpjfqo Tylenol ALLERGIES: PCN - PHYSICAL EXAM: General: Patient alert, awake, oriented X3, appears to be in no obvious distress, nontoxic, cooperative Skin: Warm. Dry. Intact. No rash. Eyes: PEARTLA, EOMIs intact, sclera white, conjunctiva clear HEENT: Atraumatic. Normo-cephalic. Oral and nasal mucosa pink and moist. Neck: Supple without meningismus, no lymphadenopathy. CV: Regular rate and rhythm without murmurs, heaves, lifts or thrills. Respiratory: Nonlabored breathing. There are no retractions or tachypnea. Lungs are clear to auscultation bilaterally. GI: Soft, nontender, without gross distention, bowel sounds present in all 4 quadrants. There is no pulsatile masses. There is no CVA tenderness. No rebound, rigidity or guarding. MUSC: There is no joint swelling or bony tenderness on exam. Neuro: Cranial nerves II - XII grossly intact. No focal neurologic deficits are noted on exam. Lower extremities: There is no peripheral edema bilaterally, negative Homans sign. No palpable cords. Distal pulses are +2/4 and present in both lower extremities. Psych: Does not maintains eye contact. Flat affect. Cooperative. - ED course: After my assessment of the patient she was pink slipped due to the complaints that the patient's sister told us. Patient is medically cleared for psychiatric assessment. Claudia was contacted for assessment of this patient. Claudia assessed the patient and determined the patient warrants hospitalization in a psychiatric facility for further care and is in the process to find a location that will accept her for admission. [facility] excepted the patient. I have filled out transfer paperwork with the patient and the patient will be transferred later this morning around 6:30 AM with planned admission at 7 AM. This chart was dictated with the use of Kukunu software within the framework of the current electronic medical records software. Attempts were made to edit in real time, given time constraints there is the potential for inaccuracies in my dictation. Jeff Wilks, DO HISTORY OF PRESENTING ILLNESS MITZI is a 27 year old Female and was seen by me at 26-Nov-2022 23:11 for a chief complaint of psychiatric evaluation (Patient denies SI/HI, sister states she has made vague statements of self harm to her. The patient wants to be admitted to [facility] where she has been before - is [facility]. resident)(1). Triage Information: Most recent Vital Sign Value Date Temp (F): 97.1 11-26-2022 23:24 Temp (C): 36.2 11-26-2022 23:24 Heart Rate (beats/min): 84 11-26-2022 23:24 Respirations (breaths/min): 15 11-26-2022 23:24 SpO2 (%): 97 11-26-2022 23:24 BP Systolic (mm Hg): 124 11-26-2022 23:24 BP Diastolic (mm Hg): 83 11-26-2022 23:24 PAST MEDICAL HISTORY CURRENT OR FORMER SUBSTANCE USE: Tobacco/Nicotine Use: light user (uses <10 cig/day, OR <0.5 ppd, OR 1 can/pouch loose leaf tobacco per week, OR <0.5 vape pods per day) Alcohol Use: occasionally Drug Use: occasionally (Marijuana),ALLERGIE S/INTOLERANCES: Allergy Allergen: penicillins Type: Drug Category Reaction: Unknown HEALTH HISTORY: No documented data. OUTPATIENT MEDICATIONS: Home Medications Review Status for Reconciliation: N/A Med Status: (more content not included)... Normal [facility] SALICYLATEon 11-27-2022 SALICYLATE <3 Normal 4 - 20 [facility] Comment on above: Performed By: #### S [facility] #### [facility] [address] [id number] Triage - EDon 11-27-2022 Triage - ED Quick Triage: Are You no Have You Given In The Last 6 Weeksno Are You Currently Breastfeedingno The patient and/or guardian verbally acknowledges placement for services into the following (when Urgent Care Service hours are operating):emergency department Chart Review: ARRIVAL INFORMATION Mode of Arrival: private vehicle CHIEF COMPLAINT MITZI LAWLER is a Female patient with a chief complaint of psychiatric evaluation (Patient denies SI/HI, sister states she has made vague statements of self harm to her. The patient wants to be [facility] Triage Date/Time: 26-Nov-2022 23:04 JOSE: 2 Pain Rating (0-10): 0 = None Vital Signs: Temperature: 97.1F ( 36.2C) Blood Pressure: 124/83 Mean: Heart Rate: 84 Respiratory Rate: 15 Pulse Oximetry: 97% Height: 5 feet 2.00 inches. 157.4 CM Weight: 240.3 pounds. Calculated 109.0 kg. Calculated BMI (kg/m2): 43.996 Calculated BSA (m2) 2.18 [place] Coma Scale: Best Eye Response: (E4) spontaneous Best Motor Response: (M6) obeys commands Best Verbal Response: (V5) oriented Lang Score: 15 Cough lasting greater than 3 weeks: no Allergies: yes Last menstrual period: unknown Patient has homicidal thoughts: no Risk Screens Suicide Risk Screen In the Past Month: Have you wished you were or wished you could go to sleep and not wake up no In the Past Month: Have you had any actual thoughts of killing yourself no In Your Lifetime: Have you ever done anything, started to do anything, or prepared to do anything to end your life no Pham Fall Scale Screening Has the patient fallen before (or is the patient in the ED as a result of a fall) has not had a fall Does the patient have an impaired gait does not have impaired gait Is the patient cognitively impaired not cognitively impaired Interventions: Pham Fall Interventions: LOW INTERVENTIONS: *patient oriented to surroundings and call system, * patient/family falls education completed and documented, *patients fall status communicated during bedside handoff, *whiteboard updated, *mode of toileting discussed with patient, *bed in low position with brakes locked, *call light in reach, * non-skid footwear TRAVEL HISTORY Travel History Coronavirus Screening: no exposure or symptoms Travel Exposure History: NO travel to International locations in the past 30 days PAIN Pain Scale Used: KELLY Pain Rating (0-10): 0 = None Past Medical History: Past Medical History Reviewedyes Electronic Signatures: Hai Davis (HALI) (Signed 26-Nov-2022 23:38) Authored: Quick Triage, Risk Screens, Pain, Travel History, Chart Review, Past Medical History Last Updated: 26-Nov-2022 23:38 by Hai Davis (HALI) Normal [facility] URINALYSIS WITH CULTURE IF I NDICATEDon 11-27-2022 Appearance (U) HAZY Normal CLEAR [facility] Comment on above: Performed By: #### U ARFX #### [address] [address] Bilirubin Ql (U) Negative Normal NEGATIVE [facility] Comment on above: Performed By: #### U ARFX #### [address] [address] Color (U) Yellow Normal STRAW,YELLOW [facility] Comment on above: Performed By: #### U ARFX #### [address] [address] Glucose Ql (U) Negative Normal NEGATIVE [facility] Comment on above: Performed By: #### U ARFX #### [address] [address] Hemoglobin Ql (U) Negative Normal NEGATIVE [facility] Comment on above: Performed By: #### U ARFX #### [address] [address] Ketones Ql (U) Negative Normal NEGATIVE [facility] Comment on above: Performed By: #### U ARFX #### [address] [address] Leukocyte esterase Test strip Ql (U) Negative Normal NEGATIVE [facility] Comment on above: Performed By: #### U ARFX #### [address] [address] Nitrite Ql (U) Negative Normal NEGATIVE [facility] Comment on above: Performed By: #### U ARFX #### [place] [id number] pH (U) 5.0 [pH] Normal 5.0 - 8.0 [facility] Comment on above: Performed By: #### U ARFX #### [address] [address] Protein Ql (U) Negative Normal NEGATIVE [facility] Comment on above: Performed By: #### U ARFX #### [address] [address] Specific gravity (U) [Rel density] 1.018 Normal 1.005 - 1.035 [facility] Comment on above: Performed By: #### U ARFX #### [address] [address] Urobilinogen (U) [Mass/Vol] mg/dL Normal 0.0 - 1.9 [facility] Comment on above: Performed By: #### U ARFX #### [place] [id number] COVID-19, MOLECULARon 2021 SARS-CoV-2 (COVID-19) RNA VERONICA+probe Ql (Unsp spec) Not detected Normal Not Detected [facility] Comment on above: Order Comment: This test was performed under the FDA's Emergency Use Authorization (EUA). Testing was performed using the Jose Viviana SARS-CoV-2 RT-PCR AND Influenza A/B Nucleic Acid Test on the Viviana Rhonda System. This test has not been approved for use in asymptomatic patients and its performance in this patient population has not been evaluated. Negative results do not rule out the presence of SARS-CoV-2, influenza A, and/or influenza B. Fact sheets for the EUA can be found at the following links: For Healthcare Providers: https://www.fda.gov/media/641536/download For Patients: https://www.fda.gov/media/676600/download Performed By: #### L [id number] #### [facility] [address] [place], [place] [address] Zane Lynch M.D. [id number] US OB FOLLOW UP TRANSABDOMIN AL SINGLE FETUSon 08-24-2021 US OB FOLLOW UP TRANSABDOMINAL SINGLE FETUS Today: Growth AUA =35w3d PATIENCE by US = 09/25/2021 FHR: 150 bpm Presentation: Cephalic EFW:2719 g or 6lb 0oz 33% MARLENE: 11.40 cm Placenta: Posterior Movement: observed No gross anomalies visualized. Standard limitations of ultrasound apply. Rabies Inspector: Lauren Moyer RDMS Attending Note I have reviewed the images and agree with the above assessment. Impression/Recommend ation: Images reviewed. Agree with report as written. Results communicated during visit. Awais Steinberg MD Attending Physician [facility] Obstetrics and Gynecology Dictated by: AWAIS STEINBERG on SunAug 24, 2021 11:17:17 AM EDT Transcribed by: AWAIS STEINBERG on SunAug 24, 2021 11:17:17 AM EDT Finalized by: AWAIS STEINBERG on SunAug 24, 2021 11:17:17 AM EDT Normal [facility] Comment on above: Order Comment: This back office order was created through the Ultrasound Visit Navigator section. Today: Growth AUA =35w3d APTIENCE by US = 09/25/2021 FHR: 150 bpm Presentation: Cephalic EFW:2719 g or 6lb 0oz 33% MARLENE: 11.40 cm Placenta: Posterior Movement: observed No gross anomalies visualized. Standard limitations of ultrasound apply. Rabies Inspector: Lauren Moyer RDMS Attending Note I have reviewed the images and agree with the above assessment. Impression/Recommend ation: Images reviewed. Agree with report as written. Results communicated during visit. Awais Steinberg MD Attending Physician [facility] Obstetrics and Gynecology [facility] Radiology Study observation (narrative) [facility] OB FOLLOW UP TRANSABDOMIN AL SINGLE FETUSon 07-25-2021 Today: Growth AUA =32w1d PATIENCE by US = 09/18/21 FHR: 126 bpm Presentation: BREECH EFW:1903 g or 4lb 3oz 42% MARLENE: 16.28 cm Placenta: Posterior fundal Movement: observed No gross anomalies visualized. Standard limitations of ultrasound apply. Rabies Inspector: Lauren Moyer RDMS Agree with wood stainer's report as above. EFW 42%ile, MARLENE wnl. Breech presentation. Recommend follow up scan at 36 weeks to reassess growth and position. Danni Tamez DO Obstetrics and Gynecology [facility] Radiology Study observation (narrative) [facility] OB FOLLOW UP TRANSABDOMINAL SINGLE FETUS Today: Growth AUA =32w1d PATIENCE by US = 09/18/21 FHR: 126 bpm Presentation: BREECH EFW:1903 g or 4lb 3oz 42% MARLENE: 16.28 cm Placenta: Posterior fundal Movement: observed No gross anomalies visualized. Standard limitations of ultrasound apply. Rabies Inspector: Lauren Moyer RDMS Agree with wood stainer's report as above. EFW 42%ile, MARLENE wnl. Breech presentation. Recommend follow up scan at 36 weeks to reassess growth and position. Danni Tamez DO Obstetrics and Gynecology Dictated by: DANNI TAMEZ on SunJul 25, 2021 2:44:43 PM EST Transcribed by: DANNI TAMEZ on SunJul 25, 2021 2:44:43 PM EST Finalized by: DANNI TAMEZ on SunJul 25, 2021 2:44:43 PM EST Normal [facility] Comment on above: Order Comment: This back office order was created through the Ultrasound Visit Navigator section. SARS-CoV-2 (COVID-19) RNA NA A+probe Ql (Resp)Ordered By: Tevin Bains on 05-20-2021 Interpretation and review of laboratory results Abnormal [facility] SARS-CoV-2 (COVID-19) RdRp gene VERONICA+probe Ql (Resp) Detected Abnormal Not Detected [facility] SARS-CoV-2 RNA Resp Ql VERONICA+p robeon 05-20-2021 SARS-CoV-2 (COVID-19) RNA VERONICA+probe Ql (Resp) Detected Invalid Interpretation Code Not Detected [facility] Comment on above: Performed By: #### 9 4500-6 #### [facility] [address] [place] [address] N. gonorrhoeae DNA VERONICA+probe Ql (U)on 04-25-2021 Trichomonas vaginosis Negative Normal Negative [facility] Comment on above: Performed By: #### 2 1416-3 #### [facility] ([facility] [address] [place] [address] Laboratory - Specimen inform ationon 04-24-2021 Specimen source Nom (Unsp spec) Hold for add-ons. [facility] Comment on above: Auto resulted. No Panel Informationon 04-24 [facility] Nuclear IgG IA Ql (S)on 03-29 Bilirubin, Urine Negative Normal Negative [facility] Comment on above: Performed By: #### 2 9950-3 #### [facility] [address] [place] [address] Blood, Urine Negative Normal Negative [facility] Comment on above: Performed By: #### 2 9950-3 #### [facility] [address] [place] [address] Clarity (U) Clear Normal Clear [facility] Comment on above: Performed By: #### 2 9950-3 #### [facility] [address] [place] [address] Color (U) Yellow Normal Yellow [facility] Comment on above: Performed By: #### 2 9950-3 #### [facility] [address] [place] [address] Glucose Ql (U) Normal Normal Normal [facility] Comment on above: Performed By: #### 2 9950-3 #### [facility] [address] [place] [address] Ketones Ql (U) Negative Normal Negative [facility] Comment on above: Performed By: #### 2 9950-3 #### [facility] [address] [place] [address] Leukocytes, Urine Negative Normal Negative [facility] Comment on above: Performed By: #### 2 9950-3 #### [facility] [address] [place] [address] Nitrite, Urine Negative Normal Negative [facility] Comment on above: Performed By: #### 2 9950-3 #### [facility] [address] [place] [address] pH (U) 6.0 [pH] Normal 5.0-8.0 [facility] Comment on above: Performed By: #### 2 9950-3 #### [facility] [address] [place] [address] Protein, Urine Negative Normal Negative [facility] Comment on above: Performed By: #### 2 9950-3 #### [facility] [address] [place] [address] Specific Anthony Urine 1.017 Normal 1.002-1.030 [facility] Comment on above: Performed By: #### 2 9950-3 #### [facility] [address] [place] [address] Urobilinogen, Urine Normal Normal Normal [facility] Comment on above: Performed By: #### 2 9950-3 #### [facility] [address] [place] [address] Bilirubin Ql (U) Negative Negative mg/dL [facility] Clarity (U) Clear Clear [facility] Color (U) Yellow Yellow [facility] Glucose Ql (U) Normal Normal mg/dL [facility] Hemoglobin Ql (U) Negative Negative [facility] Interpretation and review of laboratory results Normal [facility] Ketones (U) [Mass/Vol] Negative Negative mg/dL [facility] Leukocyte esterase Test strip Ql (U) Negative Negative WBCs/mcL [facility] Nitrite Ql (U) Negative Negative [facility] pH (U) 6.0 [pH] 5.0 - 8.0 [facility] Protein (U) [Mass/Vol] Negative Negative mg/dL [facility] Specific gravity (U) [Rel density] 1.017 [facility] Urobilin[facility] (U) [Mass/Vol] Normal Normal mg/dL [facility] XR Chest PA and Lateralon IMPRESSION: No acute radiographic abnormality. Baggageman: PSCB Transcribe Date/Time: Nov 09 2020 12:14P Dictated by : MORIAH MONTES DE OCA MD This examination was interpreted and the report reviewed and electronically signed by: MORIAH MONTES DE OCA MD on Nov 09 2020 12:16PM [facility] DIVISION OF RADIOLOGY * * *Final Report* * * DATE OF EXAM: Nov 09 2020 12:13PM WOX [id number] - XR CHEST 2V FRONTAL/LAT / PROCEDURE REASON: Cough * * * * Physician Interpretation * * * * EXAMINATION: CHEST RADIOGRAPH (2 VIEW FRONTAL & LATERAL) CLINICAL HISTORY: Cough MQ: XC2_6 EXAM DATE/TIME: 11/09/2020 12:13 PM COMPARISON: No relevant prior studies available. RESULT: Lines, tubes, and devices: None. Lungs and pleura: No focal consolidation, pleural effusion or pneumothorax Cardiomediastinal silhouette: Within normal limits. Bones and soft tissues: No acute osseous abnormality. DIVISION OF RADIOLOGY Provider, [facility] [place] - 11/09/2020 * * *Final Report* * * DATE OF EXAM: Nov 09 2020 12:13PM WOX [id number] - XR CHEST 2V FRONTAL/LAT / PROCEDURE REASON: Cough * * * * Physician Interpretation * * * * EXAMINATION: CHEST RADIOGRAPH (2 VIEW FRONTAL & LATERAL) CLINICAL HISTORY: Cough MQ: XC2_6 EXAM DATE/TIME: 11/09/2020 12:13 PM COMPARISON: No relevant prior studies available. RESULT: Lines, tubes, and devices: None. Lungs and pleura: No focal consolidation, pleural effusion or pneumothorax Cardiomediastinal silhouette: Within normal limits. Bones and soft tissues: No acute osseous abnormality. IMPRESSION IMPRESSION: No acute radiographic abnormality. Baggageman: MERLY Transcribe Date/Time: Nov 09 2020 12:14P Dictated by : MORIAH MONTES DE OCA MD This examination was interpreted and the report reviewed and electronically signed by: MORIAH MONTES DE OCA MD on Nov 09 2020 12:16PM EST [facility] Radiology Study observation (narrative) [facility] XR Chest PA and LateralOrder ed By: Tierra Provider on 11-09-2020 [facility] CR Shoulder 2+ Views Righton 01-07-2020 CR Shoulder 2+ Views Right Patient Name: MITZI LAWLER Diagnostic Radiology Exam Date/Time 01/07/2020 20:51:16 EDT Exam CR Shoulder 2+ Views Right Ordering Physician RADHA PEÑA LAURA Accession Number [id number] CPT4 Codes 39924 () Reason For Exam pain Report RIGHT SHOULDER 3 VIEWS CLINICAL INDICATION: pain TECHNIQUE: 3 views of the right shoulder. COMPARISON: None. FINDINGS: No acute fracture or dislocation. Joint spaces maintained. Soft tissues grossly unremarkable. IMPRESSION: 1. No acute osseous abnormality. Report Dictated on Workstation: DEE Final Dictating Physician: MD LENNON WENDELL Signed Date and Time: 01/07/2020 9:19 pm Signed by: MD LENNON WENDELL Transcribed Date and Time: 01/07/2020 9:20 Normal [facility] ED Provider Noteon 0 ED Provider Note [facility] ED eMERGENCY dEPARTMENT eNCOUnter Pt Name: Mitzi Lawler Birthdate 1995 Date of evaluation: 01/07/2020 Provider: Rajani Peña, HEAD TELLER - IT HELP DESK MANAGER This patient was evaluated within my scope of practice with an attending physician available in the department CHIEF COMPLAINT Chief Complaint Patient presents with ? Shoulder Pain right HISTORY OF PRESENT ILLNESS (Location/Symptom, Timing/Onset,Context /Setting, Quality, Duration, Modifying Factors, Severity) Note limiting factors. HPI Mitzi Lawler is a 24 y.o. female who presents to the emergency department via private vehicle with complaint of RIGHT shoulder pain after a resident at her place of employment twisted her arm behind her. This happened today. She states that her pain is currently an 8 out of 10, constant, aching, throbbing, nonradiating. Her pain is worse with movement and touch. She states that she has not taken anything for pain prior to arrival, stating that the medications do not work for her pain. She denies chest pain, shortness of breath, nausea, vomiting, fever, chills, abdominal pain, change in bowel or bladder habits. This patient's PMH is significant for pancreatitis. Her past surgical history includes section and cholecystectomy. The patient denies any significant family history The patient is a daily smoker. She does drink alcohol socially. She denies illicit drug use. I have reviewed the patient's personal and family past medical history as well as the nurse's notes and I agree. Personal history and family past medical history as listed in this chart. I havereviewed the patient's vitals and agree. REVIEW OF SYSTEMS (2+ forlevel 4; 10+ for level 5) Review of Systems Constitutional: Negative for chills, fatigue and fever. HENT: Negative for congestion, ear pain, rhinorrhea, sneezing and sore throat. Eyes: Negative for visual disturbance. Respiratory: Negative for cough and shortness of breath. Cardiovascular: Negative for chest pain and leg swelling. Gastrointestinal: Negative for abdominal pain, nausea and vomiting. Endocrine: Negative for cold intolerance and heat intolerance. Genitourinary: Negative for difficulty urinating, dysuria and urgency. Musculoskeletal: Negative for myalgias and neck pain. RIGHT shoulder pain Skin: Negative for pallor and rash. Allergic/Immunologic : Negative for environmental allergies. Neurological: Negative for dizziness, light-headedness and headaches. Hematological: Does not bruise/bleed easily. Psychiatric/Behavior al: Negative for confusion and sleep disturbance. This patient's personal and family past medical history as stated in HPI and otherwise unremarkable. ROS as stated in HPI otherwise unremarkable,a total of 10 systems reviewed. PAST MEDICAL HISTORY Past Medical History: Diagnosis Date ? Pancreatitis SURGICAL HISTORY Past Surgical History: Procedure Laterality Date ? SECTION x2 ? CHOLECYSTECTOMY CURRENT MEDICATIONS Discharge Medication List as of 01/07/2020 9:34 PM CONTINUE these medications which have NOT CHANGED Details levonorgestrel (MIRENA) IUD 52 mg 1 each by Intrauterine route once, Intrauterine, ONCE, Historical Med ALLERGIES Penicillins FAMILY HISTORY No family history on file. SOCIAL HISTORY Social History Socioeconomic History ? Marital status: Single Spouse name: Not on file ? Number of children: Not on file ? Years of education: Not on file ? Highest education level: Not on file Occupational History ? Not on file Social Needs ? Financial resource strain: Not on file ? Food insecurity Worry: Not on file Inability: Not on file ? Transportation needs Medical: Not on file Non-medical: Not on file Tobacco Use ? Smoking status: Current Every Day Smoker Packs/day: 0.50 Types: Cigarettes ? Smokeless tobacco: Never Used Substance and Sexual Activity ? Alcohol use: Yes Comment: occasionally ? Drug use: Never ? Sexual activity: Not on file Lifestyle ? Physical activity Days per week: Not on file Minutes per session: Not on file ? Stress: Not on file Relationships ? Social connections Talks on phone: Not on file Gets together: Not on file Attends latter day service: Not on file Active member of club or organization: Not on file Attends meetings of clubs or organizations: Not on file Relationship status: Not on file ? Intimate partner violence Fear of current or ex partner: Not on file Emotionally abused: Not on file Physically abused: Not on file Forced sexual activity: Not on file Other Topics Concern ? Not on file Social History Narrative ? Not on file SCREENINGS PHYSICAL EXAM (up to 7 for level 4, 8 or more for level 5) ED Triage Vitals [01/07/20 2017] BP Temp Temp Source Pulse Resp SpO2 Height Weight 120/86 97.3 ?F (36.3 ?C) Temporal 74 16 98 % -- -- Physical Exam Vitals signs and nursing note (more content not included)... Normal [facility] XR Shoulder Right 2 VWon Patient Name: MITZI LAWLER ---Diagnostic Radiology--- Exam Date/Time 01/07/2020 20:51:16 EDT Exam CR Shoulder 2+ Views Right Ordering Physician RADHA PEÑA LAURA Accession Number [id number] CPT4 Codes 51049 () Reason For Exam pain Report RIGHT SHOULDER 3 VIEWS CLINICAL INDICATION: pain TECHNIQUE: 3 views of the right shoulder. COMPARISON: None. FINDINGS: No acute fracture or dislocation. Joint spaces maintained. Soft tissues grossly unremarkable. IMPRESSION: 1. No acute osseous abnormality. Report Dictated on Workstation: DEE --- Final --- Dictating Physician: MD LENNON WENDELL Signed Date and Time: 01/07/2020 9:19 pm Signed by: MD LENNON WENDELL Transcribed Date and Time: 01/07/2020 9:20 [facility] Results From [facility] - 01/07/2020 9:21 PM EDT Patient Name: MITZI LAWLER ---Diagnostic Radiology--- Exam Date/Time 01/07/2020 20:51:16 EDT Exam CR Shoulder 2+ Views Right Ordering Physician RADHA PEÑA LAURA Accession Number [id number] CPT4 Codes 96880 () Reason For Exam pain Report RIGHT SHOULDER 3 VIEWS CLINICAL INDICATION: pain TECHNIQUE: 3 views of the right shoulder. COMPARISON: None. FINDINGS: No acute fracture or dislocation. Joint spaces maintained. Soft tissues grossly unremarkable. IMPRESSION: 1. No acute osseous abnormality. Report Dictated on Workstation: DEE --- Final --- Dictating Physician: MD LENNON WENDELL Signed Date and Time: 01/07/2020 9:19 pm Signed by: MD LENNON WENDELL Transcribed Date and Time: 01/07/2020 9:20 [facility] Vital Signs Date Time Vital Sign Value Performing Clinician Facility 01-09-2023 15:45-0400 Body temperature 97.9 [degF] Juan R Szymanski APRN.CNP Work Phone: [facility] 01-09-2023 15:45-0400 Body weight 96.16 kg Juan R Szymanski HEAD TELLERPILAR Work Phone: [facility] 01-09-2023 15:45-0400 Diastolic blood pressure 68 mm[Hg] Juan R Pendlebury HEAD TELLER.IT HELP DESK MANAGER Work Phone: [facility] 01-09-2023 15:45-0400 Heart rate 64 /min Juan R Pendlebury HEAD TELLER.IT HELP DESK MANAGER Work Phone: [facility] 01-09-2023 15:45-0400 Respiratory rate 16 /min [facility] HEAD TELLER.IT HELP DESK MANAGER Work Phone: [facility] 01-09-2023 15:45-0400 SaO2% (BldA) [Mass fraction] 98 % [facility] HEAD TELLER.IT HELP DESK MANAGER Work Phone: [facility] 01-09-2023 15:45-0400 Systolic blood pressure 116 mm[Hg] [facility] HEAD TELLER.IT HELP DESK MANAGER Work Phone: [facility] 11-27-2022 03:00-0400 Diastolic blood pressure 79 mm[Hg] No Pcp Required [facility] 11-27-2022 03:00-0400 Heart rate 80 /min No Pcp Required [facility] 11-27-2022 03:00-0400 Respiratory rate 14 /min No Pcp Required [facility] 11-27-2022 03:00-0400 SaO2% (BldA) [Mass fraction] 98 % No Pcp Required [facility] 11-27-2022 03:00-0400 Systolic blood pressure 109 mm[Hg] No Pcp Required [facility] 05-09-2022 19:45-0500 Body height 156.84 cm Clementina Carrillo Other [employer] 05-09-2022 19:45-0500 Body height 157 cm Clementina Carrillo Other [employer] 05-09-2022 19:45-0500 Body mass index (BMI) [Ratio] 42.4 kg/m2 Clementina Carrillo Other [employer] 05-09-2022 19:45-0500 Body temperature 97.3 [degF] Clementina Carrillo Other [employer] 05-09-2022 19:45-0500 Body weight 104.33 kg Clementina Carrillo Other [facility] 05-09-2022 19:45-0500 Body weight 104 kg Clementina Carrillo Other [facility] 05-09-2022 19:45-0500 Heart rate 82 /min Clement[facility] Carrillo [facility] 04-11-2022 18:02-0500 Body height 157.48 cm Clementina Carrillo Other [employer] 04-11-2022 18:02-0500 Body height 157 cm Clement[facility] Carrillo [facility] 04-11-2022 18:02-0500 Body mass index (BMI) [Ratio] 43.2 kg/m2 Clementina Carrillo Other [employer] 04-11-2022 18:02-0500 Body temperature 97.8 [degF] Clementina Carrillo Other [employer] 04-11-2022 18:02-0500 Body weight 107.05 kg Clementina Carrillo Other [facility] [employer] 04-11-2022 18:02-0500 Body weight 107 kg Clement[facility] Carrillo [facility] 04-11-2022 18:02-0500 Heart rate 79 /min Clementina Carrillo Other [employer] 04-11-2022 17:17-0500 Body height 157.48 cm Clementina Carrillo Other [employer] 04-11-2022 17:17-0500 Body height 157 cm Clementina Carrillo Other [employer] 04-11-2022 17:17-0500 Body mass index (BMI) [Ratio] 43.2 kg/m2 Clementina Carrillo Other [employer] 04-11-2022 17:17-0500 Body temperature 97.8 [degF] Clementina [...] 11-22-2021 21:24-0400 Heart rate 88 /min Clementina Carrillo Other [facility] 10-04-2021 11:12-0400 Body mass index (BMI) [Ratio] 39.32 kg/m2 Danni Dunlapdanieo DO Work Phone: [facility] 10-04-2021 11:12-0400 Body temperature 97.9 [degF] Danni Busuito DO Work Phone: [facility] 10-04-2021 11:12-0400 Body weight 97.52 kg Danni Busuito DO Work Phone: [facility] 10-04-2021 11:12-0400 Diastolic blood pressure 77 mm[Hg] Danni Busuito DO Work Phone: [facility] 10-04-2021 11:12-0400 Heart rate 72 /min Danni Busuito DO Work Phone: [facility] 10-04-2021 11:12-0400 Respiratory rate 16 /min Danni Busuito DO Work Phone: [facility] 10-04-2021 11:12-0400 SaO2% (BldA) [Mass fraction] 97 % Danni Busuito DO Work Phone: [facility] 10-04-2021 11:12-0400 Systolic blood pressure 113 mm[Hg] Danni Busuito DO Work Phone: [facility] 09-06-2021 13:38-0400 Body mass index (BMI) [Ratio] 42.43 kg/m2 Danni Busuito DO Work Phone: [facility] 09-06-2021 13:38-0400 Body temperature 98.29 [degF] Danni Busuito DO Work Phone: [facility] 09-06-2021 13:38-0400 Body weight 105.23 kg Danni Busuito DO Work Phone: [facility] 09-06-2021 13:38-0400 Diastolic blood pressure 69 mm[Hg] Danni Busuito DO Work Phone: [facility] 09-06-2021 13:38-0400 Heart rate 77 /min Danni Busuito DO Work Phone: [facility] 09-06-2021 13:38-0400 Respiratory rate 18 /min Danni Dunlapuito DO Work Phone: [facility] 09-06-2021 13:38-0400 SaO2% (BldA) [Mass fraction] 97 % Danni Fabiuito DO Work Phone: [facility] 09-06-2021 13:38-0400 Systolic blood pressure 105 mm[Hg] Danni Busuito DO Work Phone: [facility] 08-30-2021 13:20-0400 Body mass index (BMI) [Ratio] 42.8 kg/m2 Tamie Ayala CNM Work Phone: [facility] 08-30-2021 13:20-0400 Body temperature 97.9 [degF] Tamie Ayala CNM Work Phone: [facility] 08-30-2021 13:20-0400 Body weight 106.14 kg Tamie Ayala CNM Work Phone: [facility] 08-30-2021 13:20-0400 Diastolic blood pressure 77 mm[Hg] Tamie Ayala CNM Work Phone: [facility] 08-30-2021 13:20-0400 Heart rate 85 /min Tamie Ayala CNM Work Phone: [facility] 08-30-2021 13:20-0400 Respiratory rate 18 /min Tamie Ayala CNM Work Phone: [facility] 08-30-2021 13:20-0400 SaO2% (BldA) [Mass fraction] 98 % Tamie Ayala CNM Work Phone: [facility] 08-30-2021 13:20-0400 Systolic blood pressure 116 mm[Hg] Tamie Ayala CNM Work Phone: [facility] 08-24-2021 09:29-0400 Body height 157.5 cm Awais Steinberg MD Work Phone: [facility] 08-24-2021 09:29-0400 Body mass index (BMI) [Ratio] 42.25 kg/m2 Awais Steinberg MD Work Phone: [facility] 08-24-2021 09:29-0400 Body weight 104.78 kg Awais Steinberg MD Work Phone: [facility] 08-24-2021 09:29-0400 Diastolic blood pressure 71 mm[Hg] Awais Steinberg MD Work Phone: [facility] 08-24-2021 09:29-0400 Heart rate 87 /min Awais Steinberg MD Work Phone: [facility] 08-24-2021 09:29-0400 SaO2% (BldA) [Mass fraction] 97 % Awais Steinberg MD Work Phone: [facility] 08-24-2021 09:29-0400 Systolic blood pressure 105 mm[Hg] Awais Steinberg MD Work Phone: [facility] 08-17-2021 13:16-0400 Body height 157.5 cm Anna Sterling CNP Work Phone: [facility] 08-17-2021 13:16-0400 Body mass index (BMI) [Ratio] 41.96 kg/m2 Anna Sterling CNP Work Phone: [facility] 08-17-2021 13:16-0400 Body temperature 97.9 [degF] Anna Sterling CNP Work Phone: [facility] 08-17-2021 13:16-0400 Body weight 104.06 kg Anna Sterling CNP Work Phone: [facility] 08-17-2021 13:16-0400 Diastolic blood pressure 68 mm[Hg] Anna Sterling CNP Work Phone: [facility] 08-17-2021 13:16-0400 Heart rate 88 /min Anna Sterling CNP Work Phone: [facility] 08-17-2021 13:16-0400 SaO2% (BldA) [Mass fraction] 96 % Anna Sterling CNP Work Phone: [facility] 08-17-2021 13:16-0400 Systolic blood pressure 108 mm[Hg] Anna Sterling IT HELP DESK MANAGER Work Phone: [facility] 08-08-2021 14:17-0400 Body mass index (BMI) [Ratio] 41.7 kg/m2 Danni Busuito DO Work Phone: [facility] 08-08-2021 14:17-0400 Body temperature 98.4 [degF] Danni Busuito DO Work Phone: [facility] 08-08-2021 14:17-0400 Body weight 103.42 kg Danni Busuito DO Work Phone: [facility] 08-08-2021 14:17-0400 Diastolic blood pressure 75 mm[Hg] Danni Busuito DO Work Phone: [facility] 08-08-2021 14:17-0400 Heart rate 85 /min Danni Busuito DO Work Phone: [facility] 08-08-2021 14:17-0400 Respiratory rate 18 /min Danni Busuito DO Work Phone: [facility] 08-08-2021 14:17-0400 SaO2% (BldA) [Mass fraction] 97 % Danni Busuito DO Work Phone: [facility] 08-08-2021 14:17-0400 Systolic blood pressure 114 mm[Hg] Danni Busuito DO Work Phone: [facility] 07-25-2021 14:17-0500 Body mass index (BMI) [Ratio] 41.52 kg/m2 Danni Busuito DO Work Phone: [facility] 07-25-2021 14:17-0500 Body temperature 98.1 [degF] Danni Busuito DO Work Phone: [facility] 07-25-2021 14:17-0500 Body weight 102.97 kg Danni Busuito DO Work Phone: [facility] 07-25-2021 14:17-0500 Diastolic blood pressure 72 mm[Hg] Danni Busuito DO Work Phone: [facility] 07-25-2021 14:17-0500 Heart rate 91 /min Danni Busuito DO Work Phone: [facility] 07-25-2021 14:17-0500 Respiratory rate 16 /min Danni Busuito DO Work Phone: [facility] 07-25-2021 14:17-0500 SaO2% (BldA) [Mass fraction] 97 % Danni Busuito DO Work Phone: [facility] 07-25-2021 14:17-0500 Systolic blood pressure 108 mm[Hg] Danni Busuito DO Work Phone: [facility] 07-05-2021 11:29-0500 Body mass index (BMI) [Ratio] 41.34 kg/m2 Danni Busuito DO Work Phone: [facility] 07-05-2021 11:29-0500 Body temperature 98.4 [degF] Danni Busuito DO Work Phone: [facility] 07-05-2021 11:29-0500 Body weight 102.51 kg Danni Busuito DO Work Phone: [facility] 07-05-2021 11:29-0500 Diastolic blood pressure 73 mm[Hg] Danni Busuito DO Work Phone: [facility] 07-05-2021 11:29-0500 Heart rate 99 /min Danni Busuito DO Work Phone: [facility] 07-05-2021 11:29-0500 Respiratory rate 16 /min Danni Busuito DO Work Phone: [facility] 07-05-2021 11:29-0500 SaO2% (BldA) [Mass fraction] 94 % Danni Busuito DO Work Phone: [facility] 07-05-2021 11:29-0500 Systolic blood pressure 107 mm[Hg] Danni Busuito DO Work Phone: [facility] 05-20-2021 14:59-0500 Body temperature 97.9 [degF] No Physician [facility] 05-20-2021 14:59-0500 Diastolic blood pressure 66 mm[Hg] No Physician [facility] 05-20-2021 14:59-0500 Heart rate 94 /min No Physician [facility] 05-20-2021 14:59-0500 Respiratory rate 17 /min No Physician [facility] 05-20-2021 14:59-0500 SaO2% (BldA) [Mass fraction] 96 % No Physician [facility] 05-20-2021 14:59-0500 Systolic blood pressure 97 mm[Hg] No Physician [facility] 05-20-2021 14:59-0500 Body height 157.5 cm No Physician [facility] 05-20-2021 14:59-0500 Body mass index (BMI) [Ratio] 42.3 kg/m2 No Physician [facility] 05-20-2021 14:59-0500 Body weight 104.9 kg No Physician [facility] 05-09-2021 10:29-0500 Body mass index (BMI) [Ratio] 41.88 kg/m2 Danni Busuito DO Work Phone: [facility] 05-09-2021 10:29-0500 Body temperature 98.49 [degF] Danni Busuito DO Work Phone: [facility] 05-09-2021 10:29-0500 Body weight 103.87 kg Danni Busuito DO Work Phone: [facility] 05-09-2021 10:29-0500 Diastolic blood pressure 70 mm[Hg] Danni Busuito DO Work Phone: [facility] 05-09-2021 10:29-0500 Heart rate 95 /min Danni Busuito DO Work Phone: [facility] 05-09-2021 10:29-0500 Respiratory rate 16 /min Danni Busuito DO Work Phone: [facility] 05-09-2021 10:29-0500 SaO2% (BldA) [Mass fraction] 97 % Danni Busuito DO Work Phone: [facility] 05-09-2021 10:29-0500 Systolic blood pressure 103 mm[Hg] Danni Busuito DO Work Phone: [facility] 04-24-2021 22:11-0500 Diastolic blood pressure 57 mm[Hg] Johanna Suh MD Work Phone: [facility] 04-24-2021 22:11-0500 Heart rate 81 /min Johanna Suh MD Work Phone: [facility] 04-24-2021 22:11-0500 Systolic blood pressure 97 mm[Hg] Johanna Suh MD Work Phone: [facility] 04-24-2021 22:07-0500 SaO2% (BldA) [Mass fraction] 97 % Johanna Suh MD Work Phone: [facility] 04-24-2021 21:51-0500 Body temperature 98.01 [degF] Johanna Suh MD Work Phone: [facility] 04-24-2021 21:51-0500 Respiratory rate 16 /min Johanna Suh MD Work Phone: [facility] 04-11-2021 10:17-0500 Body weight 109.05 kg Danni Busuito DO Work Phone: [facility] 04-11-2021 10:17-0500 Diastolic blood pressure 75 mm[Hg] Danni Busuito DO Work Phone: [facility] 04-11-2021 10:17-0500 Heart rate 82 /min Danni Busuito DO Work Phone: [facility] 04-11-2021 10:17-0500 SaO2% (BldA) [Mass fraction] 97 % Danni Herzogo DO Work Phone: [facility] 04-11-2021 10:17-0500 Systolic blood pressure 110 mm[Hg] Danni Dunlapuito DO Work Phone: [facility] 01-07-2020 20:17-0400 Body Temperature 97.3 [degF] [facility] [place] 01-07-2020 20:17-0400 BP Diastolic 86 mm[Hg] [employer] 01-07-2020 20:17-0400 BP Systolic 120 mm[Hg] [employer] 01-07-2020 20:17-0400 Pulse (Heart Rate) 74 /min [employer] [place] 01-07-2020 20:17-0400 Pulse Oximetry 98 % [employer] , [place] 01-07-2020 20:17-0400 Respiratory Rate 16 /min [employer] Encounters Encounter Date Encounter Type Care Provider Facility Start: 03-04-2024 End: 03-04-2024 Emergency department patient visit ISMA RECINOS [facility] Start: 11-26-2023 End: 11-26-2023 Emergency department patient visit GRACIE DENIS [facility] Start: 06-04-2023 End: 06-04-2023 ambulatory JUAN R OSORIO Facility:[facility] Start: 03-19-2023 End: 03-20-2023 Emergency department patient visit JOSSELYN FABIAN [facility] Start: 01-14-2023 ambulatory Radha Walsh APRN.IT HELP DESK MANAGER Work Phone: [facility] Comment on above: Results Start: 01-14-2023 E-mail encounter miguel m caregiver Radha Walsh APRN.CNP Work Phone: [facility] Start: 01-13-2023 Telephone encounter Yanick Victor APRN.IT HELP DESK MANAGER Work Phone: [facility] Comment on above: Results Start: 01-09-2023 End: 01-09-2023 ambulatory JUAN R OSORIO Facility:[facility] Start: 01-09-2023 End: 01-09-2023 Office outpatient visit 25 minutes Juan R Szymanski APRN.CNP Work Phone: [facility] Comment on above: Burning with urinati on (Primary Dx) Start: 11-27-2022 End: 11-27-2022 Emergency department patient visit Jeff Wilks [facility] Emergency 17 Start: 02-10-2022 ambulatory DANNI DEONNA BUSUITO [facility] Ambulatory Start: 10-26-2021 ambulatory TARIQ DIOR [facility] Start: 10-21-2021 Orders Only Danni Deonna Bu suito DO Work Phone: [facility] Start: 10-17-2021 ambulatory PHYSICIAN NO [facility] Ambulatory Start: 10-04-2021 End: 10-04-2021 ambulatory DANNI DEONNA BUSUITO [facility] Ambulatory Start: 10-04-2021 End: 10-04-2021 Office outpatient visit 15 minutes Danni Deonna Busuito DO Work Phone: [facility] Comment on above: S/P section (Primary Dx); S/P tubal ligation Start: 09-14-2021 Chart abstracting Tariq abraham MD Work Phone: [facility] Start: 09-14-2021 End: 09-16-2021 Evaluation and management of inpatient PHYSICIAN NO [facility] Start: 09-09-2021 End: 09-09-2021 ambulatory PHYSICIAN NO [facility] Start: 09-06-2021 End: 09-06-2021 ambulatory DANNI DEONNA BUSUITO [facility] Ambulatory Start: 09-06-2021 End: 09-06-2021 Office outpatient visit 15 minutes Danni Deonna Busuito DO Work Phone: [facility] Physician [facility] Obstetrics and Gynecology Comment on above: GA: 38w2d Start: 09-05-2021 Refill Danni Deonna Bu suito DO Work Phone: [facility] Start: 08-30-2021 End: 08-30-2021 ambulatory PHYSICIAN MARINE [facility] Ambulatory Start: 08-30-2021 End: 08-30-2021 Office outpatient visit 15 minutes Tamie Ayala CNM Work Phone: [facility] Comment on above: GA: 37w2d Start: 08-24-2021 End: 08-28-2021 ambulatory AWAIS STEINBERG [facility] Ambulatory Start: 08-24-2021 End: 08-24-2021 Office outpatient visit 15 minutes Awais Steinberg MD Work Phone: [facility] Comment on above: GA: 36w3d Start: 08-19-2021 End: 11-23-2022 Unlisted evaluation and management service Clementina Carrillo Other [place] Start: 08-18-2021 ambulatory DANNI DEONNA BUSUITO [facility] Start: 08-17-2021 End: 08-17-2021 ambulatory ANNA STERLING [facility] Ambulatory Start: 08-17-2021 End: 08-17-2021 Office outpatient visit 15 minutes Anna Sterling IT HELP DESK MANAGER Work Phone: [facility] Comment on above: GA: 35w2d Start: 08-12-2021 Refill Elysia Kody DIESEL ENGINE MECHANIC APPRENTICE [facility] Start: 08-09-2021 Orders Only Tariq salazar MD Work Phone: [facility] Comment on above: Scheduled Start: 08-08-2021 End: 08-08-2021 ambulatory DANNI DEONNA BUSUITO [facility] Ambulatory Start: 08-08-2021 End: 08-08-2021 Office outpatient visit 15 minutes Danni Deonna Busuito DO Work Phone: [facility] Comment on above: GA: 34w0d Start: 07-25-2021 End: 07-29-2021 ambulatory DANNI DEONNA BUSUITO [facility] Ambulatory Start: 07-25-2021 End: 07-25-2021 Office outpatient visit 15 minutes Danni Herzogo DO Work Phone: [facility] Comment on above: GA: 32w0d Start: 07-22-2021 Orders Only Provider Not I n System [facility] Start: 07-22-2021 End: 07-23-2021 ambulatory PROVIDER NOT IN SYSTEM [facility] Start: 07-22-2021 End: 07-22-2021 ambulatory PHYSICIAN [facility] Start: 07-05-2021 End: 07-05-2021 ambulatory DANNI TAMEZ [facility] Ambulatory Start: 07-05-2021 End: 07-05-2021 Office outpatient visit 25 minutes Danni Herzogo DO Work Phone: [facility] Comment on above: GA: 29w1d Start: 06-22-2021 ambulatory PHYSICIAN NO [facility] Ambulatory Start: 06-21-2021 End: 06-21-2021 ambulatory PHYSICIAN NO [facility] Ambulatory Start: 06-09-2021 Chart abstracting Danni Tamez DO Work Phone: [facility] Start: 06-06-2021 End: 06-06-2021 ambulatory DANNI TAMEZ [facility] Ambulatory Start: 05-22-2021 End: 05-22-2021 ambulatory PHYSICIAN NO [facility] Start: 05-20-2021 End: 05-20-2021 Emergency department patient visit NO PCP PHYSICIAN Wilver [facility] [place] Start: 05-20-2021 End: 05-20-2021 Emergency department patient visit No Physician Wilver Mcginnis [facility] Emergency Room Comment on above: COVID-19 (Primary Dx ) Start: 05-20-2021 End: 05-20-2021 Evaluation and management of inpatient No Physician Wil[facility] Start: 05-09-2021 End: 05-09-2021 ambulatory DANNI TAMEZ [facility] Ambulatory Start: 05-09-2021 End: 05-09-2021 Subsequent care visit Danni Tamez DO Work Phone: [facility] Comment on above: GA: 21w0d Start: 05-04-2021 ambulatory DANNI TAMEZ [facility] Amb[facility] Start: 04-28-2021 Chart abstracting Danni Tamez DO Work Phone: [facility] Start: 04-26-2021 End: 04-26-2021 Documentation procedure Daniel Glen CNM Work Phone: [facility] [employer] Start: 04-24-2021 End: 04-25-2021 ambulatory JOHANNA SUH [facility] Start: 04-24-2021 End: 04-24-2021 Evaluation and management of inpatient Johanna Suh MD Work Phone: [facility] Start: 04-24-2021 End: 04-24-2021 Subsequent hospital visit by physician Johanna Suh MD Work Phone: [facility] Start: 04-11-2021 End: 04-11-2021 ambulatory DANNI TAMEZ [facility] Ambulatory Start: 04-11-2021 End: 04-11-2021 Office outpatient new 30 minutes Danni Tamez DO Work Phone: [facility] Comment on above: GA: 17w0d Start: 11-09-2020 End: 11-09-2020 Subsequent hospital visit by physician [facility] Darleen Work Phone: Radiology Comment on above: Cough [R05] Start: 06-24-2020 Patient requested procedure Juan R Szymanski APRN.[facility] Work Phone: [facility] Work Phone: Start: 01-07-2020 End: 01-07-2020 Emergency department patient visit [facility] Comment on above: Strain of right shou lder, initial encounter (Primary Dx); Current smoker Procedures Date Procedure Procedure Detail Performing Clinician Start: 03-04-2024 Urinalysis GRACIE PENC E Comment on above: Result Comment: CORRECTED REPORT URINALYSIS Performed By: #### [id number] #### [facility],[address] [place] [address] Start: 11-26-[address] [facility] Comment on above: Result Comment: URIN ALYSIS Performed By: #### [id number] ####[facility],[address] [place] [address] Start: 01-09-2023 Urnls dip stick/tabl et rgnt auto w/o microscopy Giovana Walters PA-C Work Phone: Start: 10-04-2021 H/O: tubal ligation S/P tubal ligati on Danni Tamez DO Work Phone: Start: 09-14-2021 End: 09-15-2021 H/O: section Hx of section Tariq Dior MD Work Phone: Start: 08-24-2021 Us preg uterus real time f/u trnsabdl per fetus Awais Steinberg MD Work Phone: Start: 07-25-2021 Us preg uterus real time f/u trnsabdl per fetus Danni Tamez DO Work Phone: Start: 05-20-2021 Sars-cov-2 detection by dna/rna Sancho Saunders NP Work Phone: Start: 05-09-2021 Microscopic observat ion [Identifier] in Cervix by Cyto stain Danni Tamez DO Work Phone: Start: 04-24-2021 Urnls dip stick/tabl et reagent auto microscopy Cleo Ibrahim CNM Work Phone: Start: 04-24-2021 EXTRA TUBES Johanna Suh MD Work Phone: Start: 04-24-2021 BECERRA URINE CULTURE TUBE Johanna Suh MD Work Phone: Start: 04-24-2021 YELLOW URINE NO ADDITIVE Johanna Suh MD Work Phone: Start: 04-11-2021 H/O: section History of C-s ection Danni Deonna Busuito DO Work Phone: Start: 11-09-2020 Radiologic exam ches t 2 views Bonnie Navarro HEAD TELLER.IT HELP DESK MANAGER Work Phone: Start: 01-07-2020 Radex shoulder compl ete minimum 2 views Rajani Peña Work Phone: H/O: section History of C-sectio n Tmaie Ayala CNM Work Phone: H/O: section S/P sectio n Danni Deonna Busuito DO Work Phone: Plan of Treatment Date Care Activity Detail Author Start: 06-21-2031 Tetanus vaccination Tetanus: Every 1 0yrs [facility] Start: 06-21-2031 Urine microalbumin profile DTa P,Tdap,Td Vaccine (2 - Td or Tdap) [facility] Start: 05-09-2024 Screening for malign ant neoplasm of cervix [facility] Start: 01-27-2024 Covid-19 Vaccine ( season) Covid-19 Vaccine ( season) [facility] Start: 01-27-2024 Influenza vaccination Influenza Vacc ine (#1) [facility] Start: 01-26-2023 Influenza vaccination INFLUENZA (#1) [facility] Start: 10-12-2022 End: 10-12-2022 [place] - individual psychotherapy v2 [facility] Start: 10-05-2022 End: 10-05-2022 [place] - individual psychotherapy v2 [facility] Start: 08-03-2022 End: 08-03-2022 [place] - individual psychotherapy v2 [facility] Start: 01-26-2022 Influenza vaccination Sequenti al Influenza Vaccine (Season Ended) [facility] Start: 10-27-2021 End: 10-27-2021 ambulatory 10/27/2021 Visit Obstetrics and Gynecology Austin Dannibeulah Ying DO [address] [place] [address] [facility] Physician [facility] Obstetrics and Gynecology Start: 09-29-2021 End: 09-29-2021 Patient encounter procedure 09/29/2021 Office Visit Obstetrics and Gynecology Austin Dannibeulah Ying DO [address] [place] [address] [facility] Physician [facility] Obstetrics and Gynecology Start: 09-19-2021 Subsequent hospital visit by physician 09/19/2021 Hospital Encounter Obstetrics [facility] Mother/Infant Start: 09-14-2021 End: 09-14-2021 Admission to same day surgery center 09/14/2021 Surgery Obstetrics Tariq Dior MD [address] [place] [id number] SECTION WITH BILATERAL PARTIAL SALPINGECTOMY [facility] Comment on above: SECTION WIT H BILATERAL PARTIAL SALPINGECTOMY Start: 09-14-2021 End: 09-14-2021 SECTION WITH BILATERAL PARTIAL SALPINGECTOMY [facility] Start: 09-14-2021 Subsequent hospital visit by physician 09/14/2021 Hospital Encounter Obstetrics Tariq Dior MD [address] [place] [id number] [facility] Start: 09-06-2021 End: 09-06-2021 Patient encounter procedure 09/06/2021 Routine Obstetrics and Gynecology Minopradip Dannibeulah Ying, [address] [place] [address] [facility] Physician [facility] Obstetrics and Gynecology Start: 08-30-2021 End: 08-30-2021 Patient encounter procedure 08/30/2021 Routine Obstetrics and Gynecology Tamie Ayala CNM [address] [place] [address] [facility] Obstetrics and Gynecology Start: 08-23-2021 End: 08-23-2021 Patient encounter procedure 08/23/2021 Routine Obstetrics and Gynecology Tamie Ayala CNM [address] [place] [address] [facility] Ob[facility]etrics [facility] Gynecology Start: 08-22-2021 End: 08-22-2021 Patient encounter procedure 08/22/2021 Routine Obstetrics and Gynecology [facility] Start: 08-08-2021 End: 08-08-2021 Patient encounter procedure 08/08/2021 Routine Obstetrics and Gynecology Minoo, Danni Deonna, DO [address] [place] [address] [facility] Ob[facility]s [facility]necology Start: 07-25-2021 End: 07-25-2021 Patient encounter procedure 07/25/2021 Routine Obstetrics and Gynecology Fabidanieo, Danni Deonna, DO [address] [place] [address] [facility] Ob[facility]s [facility] Gynecology Start: 07-22-2021 End: 07-22-2021 Patient encounter procedure 07/22/2021 Routine Obstetrics and Gynecology Busdanieo, Danni Deonna, DO [address] [place] [address] [facility] Ob[facility]etrics [facility] Gynecology Start: 06-20-2021 End: 06-20-2021 Patient encounter procedure 06/20/2021 Routine Obstetrics and Gynecology Fabiuito, Danni Deonna, DO [address] [place] [address] [facility] Physician [facility] Obstetrics and Gynecology Start: 06-08-2021 End: 06-08-2021 Patient encounter procedure 06/08/2021 Appointment Maternal and Medicine [facility] Start: 06-06-2021 End: 06-06-2021 Patient encounter procedure 06/06/2021 Routine Obstetrics and Gynecology Danni Tamez DO [address] [place] [address] [facility] Physician [facility] Obstetrics and Gynecology Start: 05-09-2021 End: 05-09-2021 Patient encounter procedure 05/09/2021 Routine Obstetrics and Gynecology Danni Tamez DO [address] [place] [address] [facility] Physician [facility] Obstetrics and Gynecology Start: 05-02-2021 End: 04-11-2022 US Obstetric Detail Anatomy Transabdominal Single Fetus US Obstetric Detail Anatomy Transabdominal Single Fetus Imaging Routine Bipolar depression (HCC) Encntr for suprvsn of normal preg, unsp, second trimester Expected: 05/02/2021, Expires: 04/11/2022 [facility] Comment on above: Expected: 05/02/2021 , Expires: 04/11/2022 Start: 04-24-2021 Adolescent depressio n screening assessment Depression Screening [facility] Start: 04-24-2021 Hepatitis C screening Hepatitis C Sc reening [facility] Start: 04-24-2021 HIV screening HIV Screening [facility] Start: 04-24-2021 Lipid panel Cholesterol Sc reening (Lipid Panel) [facility] Start: 04-24-2021 Social Influencers o f Health Screening Social Influencers of Health Screening [facility] Start: 01-26-2021 Influenza vaccination [facility] Start: 12-31-2020 COVID-19 VACCINE (2 - Pfizer series) COVID-19 VACCINE (2 - Pfizer series) [facility] Start: 11-26-2020 COVID-19 Vaccine (2 - Pfizer 2-dose series) COVID-19 Vaccine (2 - Pfizer 2-dose series) [facility] Start: 11-26-2020 COVID-19 Vaccine (2 - Pfizer 3-dose booster series) COVID-19 Vaccine (2 - Pfizer 3-dose booster series) [facility] Start: 11-26-2020 COVID-19 Vaccine (2 - Pfizer 3-dose series) COVID-19 Vaccine (2 - Pfizer 3-dose series) [facility] Start: 11-26-2020 COVID-19 Vaccine (2 - Pfizer series) COVID-19 Vaccine (2 - Pfizer series) [facility] Start: 01-27-2020 Influenza vaccination Flu vaccine (# 1) [place], [place] Start: 2016 PAP TESTING PAP TESTING [facility] Start: 2016 Screening for malign ant neoplasm of cervix Cervical Cancer Screening: Pap Smear [facility] Start: 2014 DTaP,Tdap,and Td Vac cines (1 - Tdap) DTaP,Tdap,and Td Vaccines (1 - Tdap) [facility] Start: 2014 Hepatitis B Vaccine (1 of 3 - 19+ 3-dose series) Hepatitis B Vaccine (1 of 3 - 19+ 3-dose series) [facility] Start: 2014 Urine microalbumin profile DTAP,TDAP ,TD (1 - Tdap) [facility] Start: 2013 Anxiety Screening Anxiety Screening [facility] Start: 2013 Hepatitis C screening Hepatitis C Sc reening [facility] Start: 2013 HIV SCREENING HIV SCREENING [facility] Start: 2013 HIV screening HIV Screening [facility] Start: 2010 HIV screening HIV Screening [facility] Start: 2007 COVID-19 Vaccine (1) COVID-19 Vaccin e (1) [facility] Start: 2007 Depression screening using PHQ-9 (Patient Health Questionnaire 9) score Depression Screening (PHQ-2/9) [facility] Start: 2006 HPV Vaccines (1 - 2- dose series) HPV Vaccines (1 - 2-dose series) [facility] Start: 2006 Vaccination for elsa n papillomavirus HPV Vaccines (1 - 2-dose series) [facility] Start: 2001 PNEUMOCOCCAL (1 - PCV) PNEUMOCOCCAL (1 - PCV) [facility] Start: 2001 Pneumococcal vaccination Pneum ococcal Vaccine (1 of 2 - PCV) [facility] Start: 2001 Pneumococcal Vaccine : Ped or At-Risk (1 - PCV) Pneumococcal Vaccine: Ped or At-Risk (1 - PCV) [facility] Start: 2001 Pneumococcal Vaccine : Ped or At-Risk (1 of 2 - PPSV23) Pneumococcal Vaccine: Ped or At-Risk (1 of 2 - PPSV23) [facility] Start: 2001 Pneumococcal Vaccine : Pediatrics (0 to 5 Years) and At-Risk Patients (6 to 64 Years) (1 of 2 - PPSV23) Pneumococcal Vaccine: Pediatrics (0 to 5 Years) and At-Risk Patients (6 to 64 Years) (1 of 2 - PPSV23) [facility] Start: 1998 History and physical examination, annual for health maintenance Wellness Visit [facility] Start: 1995 HEPATITIS B (1 of 3 - 3-dose series) HEPATITIS B (1 of 3 - 3-dose series) [facility] Start: 1995 Screening for malign ant neoplasm of cervix Pap Smear [facility] Start: 1995 Tetanus vaccination Tetanus: Every 1 0yrs [facility] Bacteria identified in Unspecified specimen by Aerobe culture Urine Aerobic Culture Microbiology Routine Encntr for suprvsn of normal preg, unsp, second trimester Ordered: 05/09/2021 [facility] Comment on above: Ordered: 05/09/2021 End: 09-06-2022 Bacteria identified in Unspecified specimen by Aerobe culture Urine Aerobic Culture Microbiology Routine Dysuria 1 Occurrences starting 09/06/2021 until 09/06/2022 [facility] Work Phone: Comment on above: 1 Occurrences starti ng 09/06/2021 until 09/06/2022 Bacteria identified in Urine by Culture URINE CULTURE Microbiology Routine Burning with urination 01/09/2023 5:06 PM EDT [facility] Work Phone: Blood group antibody screen [Presence] in Serum or Plasma Antibody Screen Blood Bank Routine Encntr for suprvsn of normal preg, unsp, second trimester Ordered: 07/05/2021 [facility] Comment on above: Ordered: 07/05/2021 Blood type and Indir ect antibody screen panel - Blood Type and Screen Blood Bank Routine Encntr for suprvsn of normal preg, unsp, second trimester Ordered: 05/09/2021 [facility] Comment on above: Ordered: 05/09/2021 section SECTIO N Prior Uterine Surgery [facility] Complete blood count with white cell differential, automated CBC Auto Differential Lab Panel Routine Encntr for suprvsn of normal preg, unsp, second trimester Ordered: 05/09/2021 [facility] Comment on above: Ordered: 05/09/2021 Complete blood count with white cell differential, automated CBC Auto Differential Lab Panel Routine Encntr for suprvsn of normal preg, unsp, second trimester Ordered: 07/05/2021 [facility] Comment on above: Ordered: 07/05/2021 Complete blood count with white cell differential, manual CBC and Differential Lab Routine Encntr for suprvsn of normal preg, unsp, second trimester Ordered: 07/05/2021 [facility] Comment on above: Ordered: 07/05/2021 End: 10-09-2022 Glucose [Mass/volume] in Serum or Plasma --1 hour post 50 g glucose PO Gestational Diabetes Screen (50G) Lab Routine Encntr for suprvsn of normal preg, unsp, second trimester 1 Occurrences starting 04/11/2021 until 10/09/2022 [facility] Work Phone: Comment on above: 1 Occurrences starti ng 04/11/2021 until 10/09/2022 End: 07-05-2022 Glucose [Mass/volume] in Serum or Plasma --1 hour post 50 g glucose PO Gestational Diabetes Screen (50G) Lab Routine Encntr for suprvsn of normal preg, unsp, second trimester 1 Occurrences starting 07/05/2021 until 07/05/2022 [facility] Work Phone: Comment on above: 1 Occurrences starti ng 07/05/2021 until 07/05/2022 Hepatitis B surface antigen measurement Hepatitis B Surface Antigen Lab Routine Encntr for suprvsn of normal preg, unsp, second trimester Ordered: 05/09/2021 [facility] Comment on above: Ordered: 05/09/2021 End: 05-09-2022 Hepatitis C antibody measurement Hepatitis C Antibody Lab Routine Encntr for suprvsn of normal preg, unsp, second trimester 1 Occurrences starting 05/09/2021 until 05/09/2022 [facility] Comment on above: 1 Occurrences starti ng 05/09/2021 until 05/09/2022 Human immunodeficien cy virus antibody test HIV 1/2 Screen (4th Generation) Lab Routine Encntr for suprvsn of normal preg, unsp, second trimester Ordered: 05/09/2021 [employer] Work Phone: Comment on above: Ordered: 05/09/2021 Microscopic examinat ion of vaginal Papanicolaou smear Thinprep Pap Smear Pathology and Cytology Routine Encntr for suprvsn of normal preg, unsp, second trimester Ordered: 05/09/2021 [facility] Comment on above: Ordered: 05/09/2021 End: 04-24-2021 Neisseria gonorrhoeae DNA [Presence] in Urine by VERONICA with probe detection [employer] Phone: Comment on above: Once for 1 Occurrenc es starting 04/24/2021 until 04/24/2021 Neisseria gonorrhoea e nucleic acid detection Chlamydia/Gonorrhoeae Amplified RNA Microbiology Routine Encntr for suprvsn of normal preg, unsp, second trimester Ordered: 05/09/2021 [facility] Comment on above: Ordered: 05/09/2021 Neisseria gonorrhoea e nucleic acid detection Chlamydia/Gonorrhoeae Amplified RNA Microbiology Routine 36 weeks gestation of Screening examination for venereal disease Ordered: 08/24/2021 [facility] Comment on above: Ordered: 08/24/2021 OBSTETRIC PANEL Obstetric Panel Lab Routine Encntr for suprvsn of normal preg, unsp, second trimester Ordered: 05/09/2021 [facility] Comment on above: Ordered: 05/09/2021 Rapid plasma reagin test RPR Lab Routine Encntr for suprvsn of normal preg, unsp, second trimester Ordered: 05/09/2021 [facility] Comment on above: Ordered: 05/09/2021 Rapid plasma reagin test RPR Lab Routine Encntr for suprvsn of normal preg, unsp, second trimester Ordered: 07/05/2021 [facility] Comment on above: Ordered: 07/05/2021 Rubella IgG measurement Rubella Antibody, IgG Lab Routine Encntr for suprvsn of normal preg, unsp, second trimester Ordered: 05/09/2021 [facility] Comment on above: Ordered: 05/09/2021 Streptococcus agalac tiae DNA [Presence] in Unspecified specimen by VERONICA with probe detection Group B Strep PCR, Vaginal/Rectal Microbiology Routine 36 weeks gestation of Encounter for screening for Streptococcus B Ordered: 08/24/2021 [facility] Work Phone: Comment on above: Ordered: 08/24/2021 Trichomonas vaginali s rRNA [Presence] in Unspecified specimen by VERONICA with probe detection Trichomonas vaginalis molecular study Lab Routine 04/24/2021 10:01 PM EST [employer] Urinalysis Urinalysis Lab R outine Encntr for suprvsn of normal preg, unsp, second trimester Ordered: 05/09/2021 [facility] Comment on above: Ordered: 05/09/2021 US POC Obstetric Ultrasound US POC Obstetric Ultrasound Imaging Routine 07/22/2021 11:05 AM EST [facility] End: 05-09-2022 Varicella-zoster virus antibody IgG measurement Varicella zoster Antibody, IgG Lab Routine Encntr for suprvsn of normal preg, unsp, second trimester 1 Occurrences starting 05/09/2021 until 05/09/2022 [facility] Comment on above: 1 Occurrences starti ng 05/09/2021 until 05/09/2022 Immunizations Immunization Date Immunization Notes Care Provider Az mcneal 06-21-2021 tetanus toxoid, redu austin diphtheria toxoid, and acellular pertussis vaccine, adsorbed Danni Busuito DO Work Phone: [facility] 11-05-2020 COVID-19 original vaccine, age 12+ yr, monovalent (Gen[employer]-BION[employer]maps - PURPLE TOP) Juan R Szymanski HEAD TELLER.IT HELP DESK MANAGER Work Phone: [facility] Payers Date Payer Category Payer Medicaid [employer] [id number] 2021-Present [address] [place] [address] [id number] 2018 Medicaid [id number]. [id number] 2018 Medicaid [id number] 2018 Unknown [id number] 1995 Unknown [id number] 2.16.840.1.320513.3.579.2.1143 1995 Unknown [id number] 2.16.840.1.567114.3.579.2.902 1995 Unknown [id number] 2.16.840.1.363230.3.579.2.902 1995 Unknown [id number] 2.16.840.1.137176.3.579.2. 1995 Unknown [id number] 2.16.840.1.151558.3.579.2.2 1995 Unknown [id number] 2.16.840.1.894522.3.579.2.2 1995 Unknown [id number] 2.16.840.1.360702.3.579.2.3 1995 Unknown [id number] 2.16.840.1.111519.3.579.2. 1995 Unknown [id number] 2.16.840.1.548560.3.579.2.903 1995 Unknown [id number] 2.16.840.1.583522.3.579.2. 1995 Unknown [id number] 2.16.840.1.637814.3.579.2.90 1995 Unknown [id number] 2.16.840.1.591040.3.579.2. 1995 Unknown [id number] 2.16.840.1.921662.3.579.2.903 1995 Unknown [id number] 2.16.840.1.081892.3.579.2. 1995 Unknown [id number] 2.16.840.1.244321.3.579.2.3 1995 Unknown [id number] 2.16.840.1.519140.3.579.2. 1995 Unknown [id number] 2.16.840.1.923248.3.579.2. 1995 Unknown [id number] 2.16.840.1.726958.3.579.2. 1995 Unknown [id number] 2.16.840.1.219372.3.579.2. 1995 Unknown [id number] 2.16.840.1.095975.3.579.2. 1995 Unknown [id number] 2.16.840.1.668880.3.579.2. 1995 Unknown [id number] 2.16.840.1.926118.3.579.2. 1995 Unknown [id number] 2.16.840.1.181803.3.579.2. 1995 Unknown [id number] 2.16.840.1.016739.3.579.2. 1995 Unknown [id number] 2.16.840.1.814736.3.579.2. 1995 Unknown [id number] 2.16.840.1.269328.3.579.2. 1995 Unknown [id number] 2.16.840.1.348317.3.579.2.1069 1995 Unknown [id number] 2.16.840.1.347248.3.579.2.900 1995 Unknown [id number] 2.16.840.1.979470.3.579.2.651 1995 Unknown [id number] 2.16.840.1.725753.3.579.2.651 Unknown [employer] Social History Date Type Detail Facility Start: 01-07-2020 End: 06-24-2020 Tobacco smoking status NHIS Current every day sm[facility] History of tobacco use Cigarette Smoker Priscilla reyes [facility] ELLIS ROJAS Start: 01-07-2020 End: 05-04-2020 Cigarettes smoked current (pack per day) - Reported [facility] Start: 01-07-2020 End: 06-24-2020 Tobacco use and exposure Never used [employer] ELLIS Mae Start: 01-07-2020 Alcohol intake Current drinker of alcohol (finding) [facility] [employer] ELLIS ROJAS Start: 01-07-2020 Alcohol Comment occasionally [facility] ELLIS ROJAS Start: 1995 [facility]: 10-06-2020 End: 10-01-2021 Exposure to SARS-CoV-2 (event) [facility] sure [facility] Start: 11-09-2020 End: 04-11-2021 Alcohol intake Ex-drinker (finding) [facility] Start: 04-11-2021 History SDOH Alcohol Comment Have not heavily for 9 yrs, occassionally now. [facility] Start: 12-26-2020 [facility] Start: 04-24-2021 Tobacco Comment pt is in process of quiting [employer] Start: 1995 End: 1995 Sex Assigned At Female [facility] Tobacco smoking consumption unknown [facility] Start: 05-04-2020 End: 10-08-2020 Social connection and isolation panel [facility] Do you belong to any clubs or organizations such as jainism groups, unions, fraternal or athletic groups, or school groups? No [facility] Are you now , , , , never or living with a partner? Never [facility] How often to you hav e a drink containing alcohol? 2-4 times a month [facility] How many standard dr inks containing alcohol do you have on a typical day? 1 or 2 [facility] How often do you hav e 6 or more drinks on 1 occasion? Less than monthly [facility] How hard is it for y ou to pay for the very basics like food, housing, medical care, and heating Somewhat hard [facility] Adult Depression Screening Assessment 5 [facility] Do you feel stress - tense, restless, nervous, or anxious, or unable to sleep at night because your mind is troubled all the time - these days [OSQ] Very much [facility] (I/We) worried wheth er (my/our) food would run out before (I/we) got money to buy more. Sometimes true [facility] Start: 10-08-2020 Education 14 [facility] Start: 10-08-2020 Gender identity Identifies as female gender (finding) [facility] Start: 10-08-2020 Sexual orientation Bisexual (finding) [facility] Goals Date Patient Goal Desired Activity /State 04-27-2022 Goal Observation Clinical Notes 06-30-2020 to 03-04-2024 Telephone Encounter - Stefany Aguirre LPN - 01/16/2023 3:54 PM EDTTelephone Encounter - Rosi Guillermo MA - 01/15/2023 8:12 AM EDTTelephone Encounter - Yenifer Cobos - 01/14/2023 8:50 AM EDT Note Date & Type Note Facility 03-04-2024 Note Discharge Instructio ns Discharge Summary [address] [place] [address] [id number] 03/04/2024 Patient: MITZI LAWLER Sex: Female : 1995 Age: 28y Thank you for visiting [facility]. You have been evaluated today by Isma Recinos D.O. for the following condition(s): Principal Diagnosis Acute nontraumatic generalized abdominal pain. Acute generalized abdominal pain of unknown cause. INSTRUCTIONS Follow-up with: Treasure Cortes DNP, HEAD TELLER, MENTAL RETARDATION AIDE-C, [facility], , [address] [place] [id number]. Follow up in two. Call for an appointment. (Return to the emergency department for increasing pain problems or concerns. Not sure what is causing her discomfort but it increases return). 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 [phone] 03/04/2024 Patient: MITZI LAWLER Sex: Female : 1995 Age: 28y Thank you for visiting [facility]. You have been evaluated today by Isma Recinos D.O. for the following condition(s): Principal Diagnosis Acute nontraumatic generalized abdominal pain. Acute generalized abdominal pain of unknown cause. INSTRUCTIONS Follow-up with: Treasure Cortes, FOZIA, HEAD TELLER, MENTAL RETARDATION AIDE-C, [facility], Family [facility], , [address] [place] [id number]. Follow up in two. Call for an appointment. (Return to the emergency department for increasing pain problems or concerns. Not sure what is causing her discomfort but it increases return). ADDITIONAL INFORMATION 2 of 5 Discharge Instructions Unknown Causes of Abdominal Pain (Female) The exact cause of your belly (abdominal) pain is not clear. This does not mean that this is something to worry about. Everyone likes to know the exact cause of the problem. But sometimes with belly pain, there is no clear-cut cause, and this could be a good thing. The good news is that your symptoms can be treated, and you will feel better. Your condition does not seem serious now. But sometimes the signs of a serious problem may take more time to appear. For this reason, it is important for you to watch for any new symptoms, problems, or worsening of your condition. Over the next few days, the abdominal pain may come and go. Or it may be constant. Other common symptoms can include nausea and vomiting. Sometimes it can be difficult to tell if you feel nauseous. You may just feel bad and not connect that feeling to nausea. Constipation, diarrhea, and a fever may go along with the pain. The pain may continue even if treated correctly over the following days. Depending on how things go, sometimes the cause can become clear and may need more or different treatment. Additional evaluations, medicines, or tests may also be needed. 3 of 5 Discharge Instructions Home care Your healthcare provider may prescribe medicine for pain, symptoms, or an infection. Follow the healthcare provider's instructions for taking these medicines. General care Rest as much as you can until your next exam. No strenuous activities. Try to find positions that ease discomfort. A small pillow placed on the abdomen may help relieve pain. Something warm on your abdomen (such as a heating pad) may help, but be careful not to burn yourself. Diet Don't force yourself to eat, especially if having cramps, vomiting, or diarrhea. Water is important so you don't get dehydrated. Soup may also be good. Sports drinks may also help, especially if they are not too acidic. Don't drink sugary drinks as this can make things worse. Take liquids in small amounts. Don't guzzle them. Caffeine sometimes makes the pain and cramping worse. Don't take dairy products if you have vomiting or diarrhea. Don't eat large amounts at a time. Wait a few minutes between bites. Eat a diet low in fiber (called a low-residue diet). Foods allowed include refined breads, white rice, fruit and vegetable juices without pulp, tender meats. These foods will pass more easily through the intestine. Don't have whole-grain foods, whole fruits and vegetables, meats, seeds and nuts, fried or fatty foods, dairy, alcohol and spicy foods until your symptoms go away. Follow-up care Follow up with your healthcare provider, or as advised, if your pain does not begin to improve in the next 24 hours. Call 911 Call 911 if any of these occur: Trouble breathing Confusion Fainting or loss of consciousness Rapid heart rate (more content not included)... [facility] 07-07-2023 Evaluation note Sat Jul 07 00 :26:20 EST 2023: No Assessment Information [facility] 06-04-2023 Note HNO ID: [id number] Author: BONNIE NAVARRO APRN.JOEY Service: ? Author Type: Nurse Practitioner [...] 06/24/2020t had 2 previous C sections in [place]. She desires a . I have asked her to obtain her operative report from her last delivery in [place]. I have also asked the patient to [...] place, and time. (more content not included)... [place] 03-26-2023 Evaluation note Mon Oct 30 07 :59:11 EDT 2022: No Assessment Information [...] Stefany Aguirre LPN documented in this encounter [facility] 01-15-2023 Miscellaneous Notes Third and final call attempt, left VM instructing patient to return call to receive results. Letter will also be mailed to listed address today. Rosi Guillermo MA Left message for patient to return call. Yenifer Cobos Left message for patient to return call. Yenifer Cobos Patient is on the correct antibiotic according to urine culture. If symptoms do not seem to be improving patient needs to follow-up with primary care provider documented in this encounter [facility] 01-13-2023 Evaluation note Sat Jan 13 15 [...] Assessment Information [facility] 01-09-2023 Note HNO ID: [id number] Author: Juan R Szymanski APRN.IT HELP DESK MANAGER Service: ? Author Type: Nurse Practitioner Type: Progress Notes Filed: 01/09/2023 4:00 PM Note Text: Subjective HPI A nontoxic appearing female presents to urgent care with chief complaint of possible UTI. Duration of symptoms 1 week. Associated symptoms dysuria, frequency, and urgency. Patient has history of UTIs in past with similar signs and symptoms. Patient denies the use of any elke-cjs-ljjqros medications or home remedies for symptom management. [...] 06/24/2020t had 2 previous C sections in [place]. She desires a . I have asked her to obtain her operative report from her last delivery in [place]. I have also asked the patient to [...] Negative for myalgi (more content not included)... [place] 01-09-2023 History of Presen t illness Narrative Subjective HPI A nontoxic appearing female presents to urgent care with chief complaint of possible UTI. Duration of symptoms 1 week. Associated symptoms dysuria, frequency, and urgency. Patient has history of UTIs in past with similar signs and symptoms. Patient denies the use of any ixev-xja-zdcpgjv medications or home remedies for symptom management. [...] 06/24/2020t had 2 previous C sections in [place]. She desires a . I have asked her to obtain her operative report from her last delivery in [place]. I have also asked the patient to [...] of care. This note was generated using [employer] software. It may contain errors in wording, punctuation, or spelling. Juan R Szymanski APRN.JOEY documented in this encounter [facility] 01-08-2023 Evaluation note Mon Aug 14 03 :54:13 EDT 2022: No Assessment Information [facility] 01-07-2023 Evaluation note SunJan 07 16 :07:59 EDT 2022: No Assessment Information [facility] 01-07-2023 Evaluation note SunJan 07 14 :55:12 EDT 2022: No Assessment Information [facility] 01-07-2023 Evaluation note [place] Jan 07 06 :15:49 EDT 2022: No Assessment [...] No Assessment Information [facility] 01-05-2023 Evaluation note Fri Jan 05 22 :37:01 EDT 2022: No Assessment Information [facility] 01-05-2023 Evaluation note Fri Jan 05 19 :24:36 EDT 2022: No Assessment [...] No Assessment Information [facility] 11-02-2022 Evaluation note [place] Nov 02 13 :04:52 EDT 2022: No Assessment [...] No Assessment Information [facility] 08-04-2022 Evaluation note Fri Aug 04 00 :52:46 EST 2022: No Assessment [...] visit I spent 20 minutes with both delt-wg-byxo and wdr-pbqa-xc-face time reviewing pt's records and discussing pt's clinical presentation and further management. Danni Tamez DO Obstetrics and Gynecology documented in this encounter [facility] 09-06-2021 Note Addended by: DANNI TAMEZ on: 09/06/2021 03:05 PM Modules accepted: Orders [facility] 09-06-2021 Note Addended by: DANNI TAMEZ on: 09/06/2021 03:05 PM Modules accepted: Orders [facility] 09-06-2021 Miscellaneous Notes Addended by: DANNI TAMEZ on: 09/06/2021 03:05 PM Modules accepted: Orders documented in this encounter [facility] 09-06-2021 History of Presen t illness Narrative [...] and reassuring FH: 39 cm Pelvic Exam: 0/-4 Assessment/Plan: 26 y.o. with IUP at 38w2d Labs: -OB panel: records requested from [place] 04/11, never received; B-, antibody negative, hgb [...] based on 1st trimester US done in [place] Route of delivery: repeat CS with tubal scheduled 09/14 risk factors: // EJ at 17 wks - Moved back to [place] from [place] - Was visiting one of her children in [place] but plans to deliver here - Records requested from [place], never received - labs and cultures obtained [...] 09/14 for scheduled repeat CS with tubal Danni Tamez DO Obstetrics and Gynecology documented in this encounter [facility] 09-06-2021 History of Presen t illness Narrative [...] 38w2d Labs: -OB panel: records requested from [place] 04/11, never received; B-, antibody negative, hgb [...] based on 1st trimester US done in [place] Route of delivery: repeat CS with tubal scheduled 09/14 risk factors: // EJ at 17 wks - Moved back to [place] from [place] - Was visiting one of her children in [place] but plans to deliver here - Records requested from [place], never received - labs and cultures obtained [...] 09/14 for scheduled repeat CS with tubal Danni Tamez DO Obstetrics and Gynecology documented in this encounter [facility] 08-30-2021 History of Presen t illness Narrative [...] weeks gestation of S/s of PTL/SAB given. [facility] rev'd. Patient to follow up in 1 week. Pt verbalized understanding. documented in this encounter [facility] 08-24-2021 History of Presen t illness Narrative [...] at 17 wks - Moved back to [place] from [place] - Was visiting one of her children in [place] but plans to deliver here - Records requested from [place], never received - labs and cultures obtained [...] on 06/08 at 25wks - Counseled by JASON - Increased risk of growth restriction - EFW 2719 grams (33%, 08/24) Awais Steinberg M.D. documented in this encounter [facility] 08-17-2021 Evaluation + Plan note Associated Problem(s): Oral thrush Nystatin swish and swallow sent [facility] 08-17-2021 Miscellaneous Notes Associated Problem(s): Oral thrush Nystatin swish and swallow sent documented in this encounter [facility] 08-17-2021 History of Presen t illness Narrative [...] parts viscous lidocaine 2%, diphenhydramine 12.5mg/5mL, maalox 298ol-497rs-24rh/5mL, nystatin 100,000unit/mL Anna Sterling CNP documented in this encounter [facility] 08-12-2021 Telephone encounter Note Pt advised. [facility] 08-12-2021 Miscellaneous Notes Pt advised. Pt LVM via nurse line requesting refill. documented in this encounter [facility] 08-12-2021 Telephone encounter Note Pt LVM via nurse line requesting refill. [facility] 08-09-2021 History of Presen t illness Narrative Repeat C/section and Tubal scheduled for 09/14/21. documented in this encounter [facility] 08-08-2021 Instructions Danni Tamez DO - 08/08/2021 2:35 PM EDT She can call [facility] number at [phone] and [facility] at [phone]. documented in this encounter [facility] 08-08-2021 History of Presen t illness Narrative [...] 34w0d Labs: -OB panel: records requested from [place] 04/11, never received; B-, antibody negative, hgb [...] at 17 wks - Moved back to [place] from [place] - Was visiting one of her children in [place] but plans to deliver here - Records requested from [place], never received - labs and cultures obtained [...] 36 weeks. Staff message sent to surgical services director to schedule repeat CS around 39wks, anticipate on 09/14 at 39w2d per pt request Follow up in 2 weeks for return OB and NST Danni Tamez DO Obstetrics and Gynecology documented in this encounter [facility] 07-25-2021 History of Presen t illness Narrative [...] 32w0d Labs: -OB panel: records requested from [place] 04/11, never received; B-, antibody negative, hgb [...] at 17 wks - Moved back to [place] from [place] - Was visiting one of her children in [place] but plans to deliver here - Records requested from [place], never received - labs and cultures obtained [...] precautions discussed. Follow up in 2 weeks. Danni Tamez DO Obstetrics and Gynecology documented in this encounter [facility] 07-05-2021 History of Presen t illness Narrative [...] 29w1d Labs: -OB panel: records requested from [place] 04/11, never received; B-, antibody negative, hgb [...] at 17 wks - Moved back to [place] from [place] - Was visiting one of her children in [place] but plans to deliver here - Records requested from [place], never received - labs and cultures obtained [...] 36 weeks Follow up in 2 weeks. Danni Tamez DO Obstetrics and Gynecology documented in this encounter [facility] 05-20-2021 History of Presen t illness Narrative Pt states son recently recovered from Bronchitis and she may have contracted it HPI Chief Complaint Patient presents with Cough HPI Patient presents to the ER with her son for evaluation. Mother started having a cough 3 days ago with stuffy nose and sneezing. She is approximately 23 weeks and follows up at [facility]. 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 IMPRESSION 1)acute covid 19 Procedures KIMMY Sharp 05/20/21 2265 documented in this encounter [facility] 05-20-2021 Hospital Discharg e instructions Janet Weeks [...] through Care Everywhere.Coronavirus Disease (COVID-19): General Info (Ecuadorean)documented in this encounter [facility] 05-09-2021 History of Presen t illness Narrative [...] by pt reported first trimester US in [place] equal to 19 wk US performed 04/27 (pt not certain of LMP) Delivery Mode: desires TOLAC Labs: -OB panel: records requested from [place] 04/11, never received; labs and cultures obtained [...] at 17 wks - Moved back to [place] from [place] - Was visiting one of her children in [place] but plans to deliver here - Records requested from [place], never received - labs and cultures obtained [...] at 24-28wks Follow up in 4 weeks. Danni Tamez DO Obstetrics and Gynecology documented in this encounter [facility] 04-26-2021 History of Presen t illness Narrative Labs reviewed and GC/cT/trich negative documented in this encounter [facility] 04-24-2021 History of Presen t illness Narrative Went over discharge paperwork with pt. Went over education. Answered all questions and pt got dressed and left unit Had first dose beginning of 2020, had bad reaction , doctor advised to not get second dose. Pt got biotech documented in this encounter [facility] 04-24-2021 History and physical note OB Triage Note/H&P SUBJECTIVE: Mitzi Lawler is a 25 y.o. at 18w6d PNC: adequate care with [facility] Complications: No complications identified. 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 Cervix: visually closed Perineum: normal SPECULUM EXAM: Pooling: no Bleeding: no Cultures collected: gonorrhea, trichomoniasis and chlamydia prior to exam ASSESSMENT AND PLAN: Mitzi Lawler is a 25 y.o. at 18w6d No evidence of vaginal bleeding or hematuria Reassuring FHT UA negative GC/CT/trich Discussed when to return Discussed with Dr. Suh and agrees D/c home documented in this encounter [facility] 04-24-2021 Hospital Discharg e Mitzi Rose RN - 04/24/2021 Images from the original [...] Where can you learn more? Go to [email or web address] Enter N871 in the search box to learn more about Blood in the Urine: Care Instructions. Current as of: July 07, 2020 Content Version: 13.0 [employer]. Care instructions adapted under license by your healthcare professional. If you have questions about a medical condition or this instruction, always ask your healthcare professional. [employer] disclaims any warranty or liability for your use of this information. documented in this encounter [facility] 04-11-2021 History of Presen t illness Narrative INITIAL VISIT Patient Name: Mitzi Lawler : 1995 MR #: [id number] Mitzi Lawler is a 25 y.o. at [...] CS-Unspec Spinal N CELINA Comments: Pit dec, C Section due to intolerance to labor Complications: Intolerance Name: Tamieyaneth Gynecologic History Denies STIs Denies abnormal pap smears Date of last PAP: 2020 Past Medical History Past Medical History: Diagnosis Date Alcoholism ([facility]) Anemia Chronic, trying to find fe supplement she can tolerate Anxiety Bipolar depression ([facility]) Depression MDD Manic depression ([facility]) Post depression 9825-7081 Psychosis ([facility]) Pt reports she has had 3 psychotic breaks (all in 2019). Was in a psych institution ([facility]) PTSD (post-traumatic stress disorder) Rh incompatibility Substance abuse ([facility]) Marijuana, has not used for [...] reviewed. Benefits of and 10 steps [address] [facility] Guide given to patient. PACU Vitals 04/11/21 1017 BP: 110/75 Pulse: 82 SpO2: 97% FHTs: 140s via doppler Mitzi Lawler is a 25 y.o. at 17w0d gestation being seen today for her first obstetrical visit. PATIENCE : 09/19/2021, by Patient Reported Delivery Mode: RCS vs TOLAC Labs: -OB panel: records requested from [place] 04/11 -Genetic studies: declines -Anatomy US ordered 04/01, level 2 due to history of unknown psychiatric meds at beginning of -Flu vaccine: declines -COVID vaccine: partially vaccinated, Pfizer risk factors: // EJ at 17 wks - Moved back to [place] from [place] - Was visiting one of her children in [place] but plans to deliver here - Records requested from [place] // Hx CS x 2 - First [...] up in 4 weeks. Records requested from [place]. Will obtain any additional labs pending records received. Declines genetics. Danni Tamez DO Obstetrics and Gynecology See Provider Note. documented in this encounter [facility] 11-09-2020 History of Presen t illness Narrative Radiology Service Progress Note PATIENT NAME: Mitzi Lawler DATE OF SERVICE: November 09, 2020 TIME: 12:00 PM PATIENT IDENTITY VERIFICATION COMPLETED USING TWO (2) IDENTIFIERS: Name and Date of confirmed by patient verbally. FALL SCREENING: Has the patient had 2 falls in the last year or 1 fall with injury or currently using an Ambulatory Assistive Device (Walker, Cane, Wheelchair, Crutches, etc.)? No PATIENT GENDER DATA: Female. status: : No status: NO. PATIENT RELEVANT IMPLANT DATA REVIEWED: Yes RADIOLOGY DEPARTMENT: General X-ray: Exam(s) Completed: Chest X-Ray PERIPHERAL IV DATA: Not applicable SIGNED BY: RT La(R) November 09, 2020 12:00 PM documented in this encounter [facility] 06-30-2020 History of Past i llness Narrative Problem Noted Date Diagnosed Date Resolved Date Rh negative state in antepartum period 06/30/2020 11/05/2020 Tobacco use during , antepartum 06/24/2020 11/05/2020 Overview: 06/24/2020t smokes half a pack of cigarettes a day. Down from 1 pack/day. Discussed risks of smoking during . Advised pt to quit.TKRN with history of ce sarean section, antepartum 06/24/2020 11/05/2020 Overview: 06/24/2020t had 2 previous C sections in [place]. She desires a . I have asked her to obtain her operative report from her last delivery in [place]. I have also asked the patient to activate her MyChart and I will send her EMMIS on and . I have advised her to watch these EMMIs prior to her next appointment. TKRN Obesity during 03/2021 Overview: 06/24/2020atient is obese. We will plan on GCT at new OB. TKRN documented as of this encounter (statuses as of 01/10/2023) [facility]-03-2021 History of Past illness Narrative* Problem Noted [...] 06/24/2020t had 2 previous C sections in [place]. She desires a . I have asked her to obtain her operative report from her last delivery in [place]. I have also asked the patient to activate her MyChart and I will send her EMMIS on and . I have advised her to watch these EMMIs prior to her next appointment. TKRN Obesity during 03/2021 Overview: 06/24/2020atient is obese. We will plan on GCT at new OB. TKRN documented as of this encounter (statuses as of 01/15/2023) [facility]2021 History of Past illness Narrative* Problem Noted [...] 06/24/2020t had 2 previous C sections in [place]. She desires a . I have asked her to obtain her operative report from her last delivery in [place]. I have also asked the patient to activate her MyChart and I will send her EMMIS on and . I have advised her to watch these EMMIs prior to her next appointment. TKRN Obesity during 03/2021 Overview: 06/24/2020atient is obese. We will plan on GCT at new OB. TKRN documented as of this encounter (statuses as of 01/17/2023) [facility] Diagnosis Encntr for suprvsn of normal preg, unsp, second trimester- Primary with 17 completed weeks gestation Bipolar depression (HCC) Bipolar I disorder, most recent episode (or current) depressed, unspecified Tobacco smoking affecting , antepartum Rh negative, antepartum History of Other postprocedural status Obesity affecting , antepartum documented in this encounter [facility] note* Diagnosis Hematuria, gross Gross hematuria documented in this encounter [facility] note* Diagnosis Encntr for suprvsn of normal preg, unsp, second trimester- Primary with 21 completed weeks gestation documented in this encounter [facility] note* Diagnosis COVID-19- Primary [facility] Diagnosis Encntr for suprvsn of normal preg, unsp, second trimester- Primary with 29 completed weeks gestation [facility]* Diagnosis Encounter for supervision of other normal in third trimester- Primary with 32 completed weeks gestation Abnormal glucose tolerance test (GTT) during , antepartum Encounter for ultrasound to assess interval growth of fetus 32 weeks gestation of documented [facility]* Diagnosis Encounter for supervision of high risk in third trimester, antepartum- Primary with 34 completed weeks gestation Encounter for sterilization Sterilization [facility] Diagnosis Oral thrush- Primary Candidiasis of mouth [facility] Diagnosis 36 weeks gestation of - Primary Encounter for ultrasound to assess interval growth of fetus Encounter for screening for Streptococcus B Screening examination for venereal disease Tobacco smoking affecting in third trimester [facility] Diagnosis 37 weeks gestation of - Primary Velamentous insertion of umbilical cord, antepartum Tobacco smoking affecting , antepartum Rh negative, antepartum History of Other postprocedural status Obesity affecting , antepartum [facility] Diagnosis Encounter for supervision of high risk in third trimester, antepartum- Primary with 38 completed weeks gestation [facility] Diagnosis Encounter for supervision of high risk in third trimester, antepartum- Primary with 38 completed weeks gestation Dysuria [facility] Diagnosis S/P section- Primary Other postprocedural status S/P tubal ligation Tubal ligation status [facility] Diagnosis Burning with urination- Primary Dysuria documented in this [facility] noteNYAP-NVEvaluation noteNYAP-NVEvaluation note [facility]-[place] Discharge Instructions * Instructions* Rajani Peña, HEAD TELLER - IT HELP DESK MANAGER - 01/07/2020 Return to Work Form [facility] Emergency Department (ED) [] [facility] [phone] [x] [place] [phone] [] [place] [phone] [] [place] [phone] [] [place] [phone] *Show this Return to Work form 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 It is your employer's responsibility [...] clean and dry ED Provider Signature: Rajani Peña CNP Work injuries require treatment by a [facility] certified provider. If follow-up care is needed please call one of the [facility] locations below. [place]: [phone] [address], [address], [place] [address] [place]: [phone] [address] [place] [address] [place]: [phone] [place] [address] [place]: [phone] [address] [facility] [address], [place] [address] [place]: [phone] [facility] [address] [address] * Attachments The following attachments cannot be sent through Care Everywhere. 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 Manager Expl anation Power of Skiff Operator Latest Code Status on File Code Status [...] Documents on File Type Date Recorded Patient Forestry And Wildlife Manager Expl anation Advance Directives and Living Will Documents on File Type Date Recorded Patient Forestry And Wildlife Manager Expl anation Advance Directives and Living Will Documents on File Type Date Recorded Patient Forestry And Wildlife Manager Expl anation Advance Directives and Livin g Will 06/08/2021 10:56 AM Latest Code Status on File Code Status Date Activated Date Inactivated Comments Full Code 05/22/2021 5:12 PM 05/22/2021 8:07 PM Documents on File Type Date Recorded Patient Forestry And Wildlife Manager Expl anation Advance Directives and Livin g Will 07/22/2021 10:56 AM Latest Code Status on File Code Status Date Activated Date Inactivated Comments Full Code 07/22/2021 9:44 AM 07/22/2021 1:18 PM Full Code 05/22/2021 5:12 PM 05/22/2021 8:07 PM Documents on File Type Date Recorded Patient Forestry And Wildlife Manager Expl anation Advance Directives and Livin g [...] Specialty Diagnoses / Procedures Referred By Neal t Referred To Contact Obstetrics and Gynecology Diagnoses Bipolar depression (HCC) Encntr for suprvsn of normal preg, unsp, second trimester Procedures US Obstetric Detail Anatomy Transabdominal Single Fetus Danni Tamez DO [address] [place] [address] Referral ID Status Reason Start Date Expiration Date V isits Requested Visits Authorized [id number] Authorized 05/02/2021 05/02/2022 1 1 Specialty Diagnoses / Procedures Referred By Contac t Referred To Contact Behavioral Health Diagnoses Bipolar depression (HCC) Danni Tamez Deonna, DO [address] [place] [address] Referral ID Status Reason Start Date Expiration Date V isits Requested Visits Authorized [id number] Pending Review 04/11/2021 04/11/2022 1 1 Specialty Diagnoses / Procedures Referred By Contac t Referred To Contact Maternal and Medicine Diagnoses Bipolar depression (HCC) Encntr for suprvsn of normal preg, unsp, second trimester Procedures US Obstetric Detail Anatomy Transabdominal Single Fetus Danni Tamez Deonna, [address] [place] [address] [facility]ly [facility] Fet Medicine [address] [place] [address] Additional Source Comments Reason for Visit (unrecogniz ed section and content) Reason Comments Shoulder Pain right Reason Comments Initial Visit Reason Comments Blood in Urine Reason Comments Routine Visit OB PE--Pt sts jessica t she ran out of Zoloft and hasn't had any in over 1 week. We have not received any records from her provider in [place]. She will have PNL's, pap and cultures [...] ized section and content) DATE CREATED AUTHOR 10/07/2020 [facility] DATE CREATED AUTHOR AUTHOR'S ORGANIZ ATION 05/20/2021 [facility] DATE CREATED AUTHOR AUTHOR'S ORGANIZ ATION 09/28/2021 [facility] DATE CREATED AUTHOR AUTHOR'S ORGANIZ ATION 02/25/2022 [facility] DATE CREATED AUTHOR AUTHOR'S ORGANIZ ATION 11/30/2022 [facility] DATE CREATED AUTHOR AUTHOR'S ORGANIZ ATION 03/26/2023 [facility] DATE CREATED AUTHOR AUTHOR'S ORGANIZ ATION 06/05/2023 [place] DATE CREATED AUTHOR AUTHOR'S ORGANIZ ATION 03/09/2024 [facility] Care Teams (unrecognized sec tion and content) 911 Operator Relationship Specialty Start Date End Date No, Physician [facility] PCP - General 03/21/21 911 Operator Relationship Specialty Start Date End Date No, Physician [facility] PCP - General 03/21/21 911 Operator Relationship Specialty Start Date End Date No, Physician [facility] PCP - General 03/21/21 911 Operator Relationship Specialty Start Date End Date Physician, Marine Pcp PCP - General 05/20/21 911 Operator Relationship Specialty Start Date End Date No, Physician [facility] PCP - General 03/21/21 911 Operator Relationship Specialty Start Date End Date No, Physician [facility] PCP - General 03/21/21 911 Operator Relationship Specialty Start Date End Date No, Physician [facility] PCP - General 03/21/21 911 Operator Relationship Specialty Start Date End Date No, Physician [facility] PCP - General 03/21/21 911 Operator Relationship Specialty Start Date End Date No, Physician [facility] PCP - General 03/21/21 911 Operator Relationship Specialty Start Date End Date No, Physician [facility] PCP - General 03/21/21 911 Operator Relationship Specialty Start Date End Date No, Physician [facility] PCP - General 03/21/21 911 Operator Relationship Specialty Start Date End Date No, Physician [facility] PCP - General 03/21/21 911 Operator Relationship Specialty Start Date End Date No, Physician [facility] PCP - General 03/21/21 911 Operator Relationship Specialty Start Date End Date No, Physician [facility] PCP - General 03/21/21 911 Operator Relationship Specialty Start Date End Date No, Physician [facility] PCP - General 03/21/21 911 Operator Relationship Specialty Start Date End Date No, Physician [facility] PCP - General 09/14/21 911 Operator Relationship Specialty Start Date End Date No, Physician [facility] PCP - General 09/14/21 911 Operator Relationship Specialty Start Date End Date No, Physician [facility] PCP - General 09/14/21 911 Operator Relationship Specialty Start Date End Date Juan R Osorio MD [address] [place] [address] PCP - General Family Medicine 11/05/20 911 Operator Relationship Specialty Start Date End Date Juan R Osorio MD [address] [place] [address] PCP - General Family Medicine 11/05/20 911 Operator Relationship Specialty Start Date End Date Juan R Osorio MD [address] [place] [address] PCP - General Family Medicine 11/05/20 911 Operator Relationship Specialty Start Date End Date Juan R Osorio MD [address] [place] [address] PCP - General Family Medicine 11/05/20 11/06/23 Goals Section (unrecognized section and content) No [...] or prosecute any alcohol or drug abuse patient.[facility] the event this information is protected by the Federal Confidentiality of Alcohol and Drug Abuse Patient Records regulations: The Federal rules restrict any use of the information to criminally investigate or prosecute any alcohol or drug abuse patient.[facility] the event this information is protected by the Federal Confidentiality of Alcohol and Drug Abuse Patient Records regulations: The Federal rules restrict any use of the information to criminally investigate or prosecute any alcohol or drug abuse patient.[facility] [place] the event this information is protected by the Federal Confidentiality of Alcohol and Drug Abuse Patient Records regulations: The Federal rules restrict any use of the information to criminally investigate or prosecute any alcohol or drug abuse patient.[facility] [place] FOR RECORDS PERTAINING TO PATIENTS WHO ARE [...] BE BASED ON THE PRIMARY CLINICAL RECORDS. [facility] [employer] [facility]. provides no warranty or guarantee of the accuracy or completeness of information in this document.
[2024-03-19 09:06] LABS: Mucous, Urine 0 SEEN /hpf (<or=2+)
[2024-03-19 09:08] LABS: Color, Urine Yellow (Yellow); Glucose, Dipstick Normal (Normal); Ketone-Dipstick Negative (Negative); Leukocyte Esterase-Dipstick 500 /ul (Negative); Nitrite-Dipstick Negative (Negative); Occult Blood-Urine 250 /ul (Negative); Protein-Dipstick 100 mg/dl (Negative); Specific Gravity, Urine 1.015 (1.002-1.030); Urine Bilirubin Dipstick Negative (Negative); Urine Clarity Sl. Cloudy (Clear); Urine Urobilinogen 1 mg/dl (Normal)
[2024-03-19 09:12] LABS: Absolute Lymphocyte Count 1.55 X10^3/uL (0.83-4.51); Absolute Neutrophil Count 11.4 X10^3/uL (2.0-7.7); Basophil# 0.03 X10^3/uL; Basophil% 0.2 % (0-1); Eosinophil# 0.03 X10^3/uL; Eosinophils% 0.2 % (0-5); Hematocrit 44.9 % (37-47); Hemoglobin 14.4 g/dL (12.0-15.0); Lymphocyte # 1.55 X10^3/ul (0.83-4.51); Lymphocyte % 11.2 % (19-41); Mean Corp Hgb Conc 32.1 g/dL (32-36); Mean Corpuscular Hgb 27.1 pg (27.0-32.0); Mean Corpuscular Volume 84.6 fL (81-99); Monocyte# 0.82 X10^3/uL; Monocyte% 5.9 % (0-10); NRBC Flagged by Analyzer 0 % (0-5); Neutrophil # 11.38 X10^3/uL (2.7-7.7); Neutrophil % 82.1 % (47-70); Platelet Count 276 K/mm3 (150-450); RBC Distribution Width CV 14.5 % (11.6-14.6); RBC Distribution Width SD 44.4 fl (35.1-43.9); Red Blood Count 5.31 M/mm3 (4.2-5.4); White Blood Count 13.9 K/mm3 (4.4-11.0)
[2024-03-19 09:16] LABS: Squamous Epithelial Cells - UA 0-5 SEEN /hpf (5-10); White Blood Cells 25-50 SEEN /hpf (0-5)
[2024-03-19 09:17] LABS: Anion Gap 4 (5-15); BUN 6 mg/dL (7-18); Calcium,Total 9.4 mg/dL (8.5-10.1); Chloride 108 mmol/L (98-107); EST Glomerular Filtration Rate 126 mL/min (>60); Est Glom Filt Rate - Afr Amer 153 mL/min (>60); Estimated Creatinine Clearance 149.89 ml/min; Glucose 100 mg/dL (74-106); Potassium 3.8 mmol/L (3.5-5.1); Sodium Level 139 mmol/L (136-145)
[2024-03-19 09:17] LABS: Bacteria 1+ /hpf (None Seen); Red Blood Cells-Urine 10-25 SEEN /hpf (0-5)
[2024-03-19 09:49] VITALS: BP 120/78; PULSE 77; RESP 18; TEMP 36.8; O2SAT 97
[2024-03-19] MEDS: Smz/Tmp Ds Tablet 1 TABLET PO (10:10)
== END 2024-03-19 10:08 | disposition home or self-care (01) ==
PROVIDERS: Emergency Provider Emergency Medicine; Visit Provider Emergency Medicine
DX: N39.0 Urinary tract infection, site not specified (principal); F17.210 Nicotine dependence, cigarettes, uncomplicated
CPT/HCPCS: 74176; 80048; 81001; 85025; 87077; 87086; 87088; 87186; 96374; 96375; 99282; A4216; J2405

== ENCOUNTER 2024-12-10 13:02 | Emergency (ER) | payer MEDICAID, SELFPAY ==
[2024-12-10 13:03] VITALS: BP 138/85; PULSE 81; RESP 18; TEMP 37; O2SAT 100; BMI 35.7
--- NOTE | 2024-12-10 13:21 | ED.VIS.DENTA ---
HPI History of Present Illness Chief Complaint: Dental Informant: patient Narrative Narrative: 5-day history of right lower dental pain referring up for upper. Does have dental caries. On cold sensitivities. Allergies to all penicillins. She had a tooth extraction same side in June she cannot recall where. No trouble swallowing. She reports been working 2 jobs therefore difficulty trying to get back to the dentist. Prior similar symptoms: Yes PFSH PFSH Medical History delivery delivered PTSD (post-traumatic stress disorder) Depression Anxiety Colitis Home Medications ?Medication ?Instructions ?Recorded ?Last Taken ?Type ciprofloxacin HCl 500 mg tablet 500 mg PO BID #14 TABLETS 06/15/23 Unknown Rx hydrocodone-acetaminophen 5-325mg 1 tab PO Q6H PRN PRN Pain 3 days 06/15/23 Unknown Rx 5mg-325mg #12 TABLETS metronidazole 500 mg tablet 500 mg PO Q8H #21 tabs 06/15/23 Unknown Rx ondansetron 4 mg disintegrating 4 mg PO Q6H PRN PRN Nausea #10 tabs 06/15/23 Unknown Rx tablet sulfamethoxazole 800 1 tab PO BID #14 TABLETS 03/19/24 Unknown Rx mg-trimethoprim 160 mg tablet clindamycin HCl 150 mg capsule 450 mg (3 x 150 mg) PO TID #90 12/10/24 Unknown Rx CAPSULES Allergy/AdvReac Type Severity Reaction Status Date / Time amoxicillin Allergy Anaphylaxis Verified 12/10/24 13:04 cefprozil (From Cefzil) Allergy Itching Verified 12/10/24 13:04 Penicillins (PCN) Allergy Anaphylaxis Verified 12/10/24 13:04 bupropion (From Wellbutrin) AdvReac Vomiting Verified 12/10/24 13:04 Surgical History History of tonsillectomy and adenoidectomy Hx of cholecystectomy Social History Smoking Status: Current every day smoker tobacco type: cigarettes ROS ROS ED Constitutional Constitutional ED: Denies fever(s) ENT ENT ED: Reports other Details: Dental pain Cardiovascular Cardiovascular: Denies chest pain Respiratory/Chest Respiratory/Chest: Denies cough Gastrointestinal Gastrointestinal: Denies diarrhea or vomiting Musculoskeletal Musculoskeletal: Denies none Integumentary Denies rash or wounds Neurologic Neurologic: Denies weakness EXAM Physical Exam Const Vital Signs: 12/10/24 13:03 Temperature 98.6 F Temperature Source Oral Pulse Rate 81 Respiratory Rate 18 Blood Pressure 138/85 H Blood Pressure Mean 102 Pulse Ox 100 Oxygen Delivery Method Room Air Positive well nourished and well developed General Appearance ED: well developed HEENT HEENT Narrative: Oral examination dental decay tooth 30 and 31 tender percussion tooth #31. Missing 29, decay of 28. No sublingual edema. No fluctuance. normocephalic and atraumatic Eyes General Eye ED: Yes normal appearance of both eyes Neck full ROM Resp normal respiratory effort and normal air movement Cardio regular rate and regular rhythm GI soft to palpation Extremity normal to inspection and full ROM Neuro oriented x3 Skin no rashes or lesions noted and no wounds MDM MDM MDM Narrative Medical decision making narrative: Interventions / MDM: Differential diagnosis: Dental caries, dentalgia Diagnosis considered but do not suspect: No clinical Aj angina My EKG interpretation: N/A Imaging independently reviewed and interpreted by myself: N/A External documents reviewed: N/A Test considered but not ordered:N/A ED course: Worsening dentalgia with dental decay, no abscess seen. Started on clindamycin with penicillin allergy. Discussed follow-up with dentist for definitive treatment. Work note provided. All questions answered. Re-evaluation: stable Disposition discussed with patient/family/significant other: Patient Case discussed with consulting clinician: N/A This note was generated with [employer] dictation software. It may contain incorrect words, spelling, and punctuation that were not noted in checking the note before signing. Discharge Plan Triage Chief Complaint: Dental ED Provider: Serafin Antonio Dx/Rx/DC Orders Clinical Impression: Dental caries, Dentalgia Instructions: ED Dental Pain, ED Dental Cavity Prescriptions: New clindamycin HCl 150 mg capsule 450 mg PO TID Qty: 90 0RF No Action hydrocodone-acetaminophen [hydrocodone-acetaminophen] 5-325 mg tablet 1 tab PO Q6H PRN PRN (Reason: Pain) 3 Days Qty: 12 0RF metronidazole [metronidazole] 500 mg tablet 500 mg PO Q8H Qty: 21 0RF ciprofloxacin HCl [ciprofloxacin HCl] 500 mg tablet 500 mg PO BID Qty: 14 0RF ondansetron [ondansetron] 4 mg tablet,disintegrating 4 mg PO Q6H PRN PRN (Reason: Nausea) Qty: 10 0RF sulfamethoxazole-trimethoprim 800-160 mg tablet 1 tab PO BID Qty: 14 0RF Stand Alone Forms: ED Work / School Excuse Primary Care Provider: Care Physician,No Primary Referrals: Care Physician,No Primary [Primary Care Provider] - Activity Restrictions/Additional Instructions: Take antibiotic as prescribed. Follow-up with dentist for definitive treatment plans. Print Language: [place] Island[place] Disposition Disposition: Home, Self Care Discharge Date/Time: 12/10/24 13:35
--- OUTSIDE RECORDS SUMMARY | 2024-12-10 23:06 | XMS RPT_ITS | CCD ---
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 L500.2500 ####[facility] [address] [place], [address] Platelets (Bld) [#/Vol] 276 10*3/uL Normal 150-450 [facility] Comment on above: Performed By: #### L 100.0100, L500.2500 ####[facility] [address] [place], [address] RBC (Bld) [#/Vol] 5.31 10*6/uL Normal 4.2-5.4 [facility] Comment on above: Performed By: #### L 100.0100, L500.2500 ####[facility] [address] [place], [address] RDW SD 44.4 fl High 35.1-43.9 [facility] Comment on above: Performed By: #### L 100.0100, L500.2500 ####[facility] [address] [place], [address] WBC (Bld) [#/Vol] 13.9 10*3/uL High 4.4-11.0 [facility] Comment on above: Performed By: #### L 100.0100, L500.2500 ####[facility] [address] [place], [address] Emergency Department Summary on 03-19-2024 Emergency Department Summary [facility] Medical Records Department [address] [place] [address] Emergency Department Summary 03/19/24 MR#: [id number] Acct: [id number] Name: MITZI LAWLER Rep #: [id number] : 1995 28 From: Rock Calvin DO PCP: Care Physician,No Primary Status:DEP ER Location: ED HPI History of Present Illness Chief Complaint: Back Detail of Chief Complaint: Back pain Informant: patient Narrative Narrative: Patient presents to the emergency department with complaint of back pain that started in the middle of the night around 3 AM. Describes a mild nausea. Rates her pain an 8 out of 10. At times the pain radiates around the right and left side but more on the right. Patient denies urinary symptoms of dysuria urgency or frequency. She has had no hematuria. She denies pain rating down her legs. Denies fall or injury to her back. She is never had pain like this before. Patient's had prior cholecystectomy. [facility] Medical History (Updated 03/19/24 @ 09:[address] Rock Calvin, DO) delivery delivered PTSD (post-traumatic stress disorder) Depression Anxiety Colitis Home Medications ???Medication ???Instructions ???Recorded ???Last Taken ???Type ciprofloxacin HCl 500 mg tablet 500 mg PO BID #14 TABLETS 06/15/23 Unknown Rx hydrocodone-acetami nophen 5-325mg 1 tab PO Q6H PRN PRN Pain 3 days 06/15/23 Unknown Rx 5mg-325mg #12 TABLETS metronidazole 500 mg tablet 500 mg PO Q8H #21 tabs 06/15/23 Unknown Rx ondansetron 4 mg disintegrating 4 mg PO Q6H PRN PRN Nausea #10 tabs 06/15/23 Unknown Rx tablet sulfamethoxazole 800 1 tab PO BID #14 TABLETS 03/19/24 Unknown Rx mg-trimethoprim 160 mg tablet Allergy/AdvReac Type Severity Reaction Status Date / Time amoxicillin Allergy Anaphylaxis Verified 03/19/24 07:54 cefprozil (From Cefzil) Allergy Itching Verified 03/19/24 07:54 Penicillins (PCN) Allergy Anaphylaxis Verified 03/19/24 07:54 bupropion (From Wellbutrin) AdvReac Vomiting Verified 03/19/24 07:54 Surgical History History of tonsillectomy and adenoidectomy Hx of cholecystectomy Social History Smoking Status: Current every day smoker tobacco type: cigarettes ROS ROS ED Review of Systems ROS Unobtainable: other Constitutional Constitutional ED: Reports lethargy; Denies chills, fever(s), sweats or weight loss Eyes Eyes: Denies blurry vision, change in vision or diplopia ENT ENT ED: Denies rhinorrhea or sore throat Cardiovascular Cardiovascular: Denies chest pain, orthopnea or racing heartbeat Respiratory/Chest Respiratory/Chest: Denies cough, dyspnea, dyspnea on exertion, orthopnea or sputum Gastrointestinal Gastrointestinal: Denies abdominal pain, diarrhea, nausea or vomiting Genitourinary Genitourinary ED: Denies dysuria, hematuria or urinary frequency Musculoskeletal Musculoskeletal: Reports back pain; Denies arthralgias, myalgias or neck pain Integumentary Denies abscess, Abrasions or rash Neurologic Neurologic: Denies headache(s) or weakness Psychiatric Psychiatric: Denies anxiety, depression or suicidal thoughts Endocrine Endocrinology: Denies polydipsia, polyphagia or polyuria Hematologic/Lymphat ic Hematologic/Lymphat ic: Denies easy bleeding, easy bruising or lymphadenopathy Allergic/Immunologi c Allergic/Immunologi c ED: Denies mouth swelling, tongue swelling or urticaria EXAM Physical Exam Const Vital Signs: 03/19/24 07:53 Temperature 97.0 F L Temperature Source Temporal Pulse Rate 86 Respiratory Rate 16 Blood Pressure 129/87 H Blood Pressure Mean 101 Pulse Ox 100 Oxygen Delivery Method Room Air Positive well nourished and well developed General Appearance ED: well developed and NAD HEENT Reports TM's clear and moist mucous membranes normocephalic and atraumatic; Negative for trauma or tenderness Tympanic Membrane ED: Yes TM's clear Eyes PERRL and EOMs intact bilaterally General Eye ED: Negative for pale conjunctiva or scleral icterus Neck no lymphadenopathy, supple and no JVD General: Negative for tenderness Chest Wall inspection of chest normal and palpation of chest normal Chest: Negative for tenderness Resp normal respiratory effort and clear to auscultation bilaterally Effort and Inspection: Negative for respiratory distress or pain with movement Auscultation: Negative for rhonchi, wheezes or diminished lung sounds Cardio regular rate, regular rhythm, S1 normal heart sound, S2 normal heart sound and no murmurs Peripheral Pulses: pulses 2+ throughout GI normal to inspection, nondistended, normoactive bowel sounds, soft to palpation, non-tender, non- distended and no masses Back/Spine no thoracic nor lumbar tend (more content not included)... Normal [facility] Urinalysis, Completeon 03-19 BACTERIA 1+ /hpf Normal None Seen [facility] Comment on above: Order Comment: COLLE CTOR TO SPECIFY Performed By: #### L 400.0001 #### [facility] [address] [place], [address] RBC 10-25 SEEN Normal 0-5 [facility] Comment on above: Order Comment: COLLE CTOR TO SPECIFY Performed By: #### L 400.0001 #### [facility] [address] [place], [address] EPI,SQUAMOUS 0-5 SEEN Normal 5-10 [facility] Comment on above: Order Comment: COLLE CTOR TO SPECIFY Performed By: #### L 400.0001 #### [facility] [address] [place], [address] WBC 25-50 SEEN Normal 0-5 [facility] Comment on above: Order Comment: COLLE CTOR TO SPECIFY Performed By: #### L 400.0001 #### [facility] [address] [place], [address] Mucus Ql (Urine sed) [address] [facility] Comment on above: Order Comment: COLLE CTOR TO SPECIFY Performed By: #### L 400.0001 #### [facility] [address] [place], [address] CBC + DIFFon 03-04-2024 Baso # 0.05 x10EE3/UL Normal 0.00 - 0.10 [facility] Comment on above: Performed By: #### 2 89225 #### [facility],[address] [place] [address] Basophils/100 WBC (Bld) 0.5 % Normal 0.0 - 2.0 [facility] Comment on above: Performed By: #### 2 46648 #### [facility],[address] [place] [address]1747 CBC + DIFF Normal [facility] Comment on above: Result Comment: CBC- COMPLETE BLOOD COUNT Performed By: #### 2 40591 #### [facility],[address] [place] [address] 13996 EO # 0.09 x10EE3/UL Normal 0.00 - 0.50 [facility] Comment on above: Performed By: #### 2 81697 #### [facility],[address] [place], [place] [address] Eosinophils/100 WBC (Bld) 0.9 % Normal 0.0 - 7.0 [facility] Comment on above: Performed By: #### 2 04708 #### [facility],[address] [place] [address] Erythrocyte distribution width (RBC) [Ratio] 14.1 % Normal 12.0 - 15.6 [facility] Comment on above: Performed By: #### 2 99907 #### [facility],[address] [place] [address] Hematocrit (Bld) [Volume fraction] 47.4 % High 34.0 - 46.0 [facility] Comment on above: Performed By: #### 2 73869 #### [facility],[address] [place] [address] Hemoglobin (Bld) [Mass/Vol] 15.4 g/dL Normal 12.0 - 16.0 [facility] Comment on above: Performed By: #### 2 92965 #### [facility],[address] [place] [address]33 Lymph # 2.61 x10EE3/UL Normal 0.80 - 2.80 [facility] Comment on above: Performed By: #### 2 24670 #### [facility],[address] [place] [address] Lymphocytes/100 WBC (Bld) 26.0 % Normal 20.0 - 45.0 [facility] Comment on above: Performed By: #### 2 51813 #### [place] [id number] MANUAL DIFF N/A Normal [facility] Comment on above: Performed By: #### 2 91477 #### [facility],[address] [place] [address]83 MCH (RBC) [Entitic mass] 27 pg Normal 27 - 33 [facility] Comment on above: Performed By: #### 2 31992 #### [facility],[address] [place] [address] MCHC 33 X10 3 Normal 32 - 36 [facility] Comment on above: Performed By: #### 2 67709 #### [facility],[address] [place] [address] 28991 MCV (RBC) [Entitic vol] 83 fL Normal 80 - 99 [facility] Comment on above: Performed By: #### 2 14707 #### [facility],[address] [place] [address] 28806 Drew # 0.62 x10EE3/UL Normal 0.20 - 1.00 [facility] Comment on above: Performed By: #### 2 50868 #### [facility],[address] [place] [address]4439 MONOS % 6.2 % Normal 0.0 - 10.0 [facility] Comment on above: Performed By: #### 2 62877 #### [facility],[address] [place] [address] 25813 Morphology Ayan (Bld) [Interp] N/A Normal [facility] Comment on above: Performed By: #### 2 05925 #### [facility],[address] [place] [address] 80188 Neut # 6.66 x10EE3/UL Normal 1.50 - 7.10 [facility] Comment on above: Performed By: #### 2 98132 #### [facility],[address] [place] [address] 67131 Neutrophils/100 WBC (Bld) 66.4 % Normal 46.0 - 76.0 [facility] Comment on above: Performed By: #### 2 86931 #### [facility],[address] [place] [address] 19868 PLATELET 291 x10EE3/UL Normal 150 - 450 [facility] Comment on above: Performed By: #### 2 99132 #### [facility],[address] [place] [address] 51719 Platelet mean volume (Bld) [Entitic vol] 8.6 fL Normal 6.6 - 10.5 [facility] Comment on above: Result Comment: AUTO MATED DIFFERENTIAL Performed By: #### 2 90378 #### [facility],[address] [place] [address] 41095 RBC 5.71 x 10EE6/UL High 4.10 - 5.30 [facility] Comment on above: Performed By: #### 2 33574 #### [facility],[address] [place] [address] 38577 WBC 10.0 x 10EE3/UL Normal 4.5 - 10.8 [facility] Comment on above: Performed By: #### 2 96276 #### [facility],[address] [place], [place] [id number] CMP with eGFRon 03-04-2024 AGE 28 years Normal [facility] Comment on above: Performed By: #### 2 13677 #### [facility],[address] [place] [address] 72659 Albumin [Mass/Vol] 3.6 g/dL Normal 3.4 - 5.0 [facility] Comment on above: Performed By: #### 2 44615 #### [facility],[address] [place] [address] 47778 Albumin/Globulin [Mass ratio] 0.8 {ratio} Low 0.9 - 1.6 [facility] Comment on above: Performed By: #### 2 36483 #### [facility],[address],[place] [address] ALK PHOS 119 U/L High 46 - 116 [facility] Comment on above: Performed By: #### 2 74765 #### [facility],[address] [place] [address] 97288 ALT [Catalytic activity/Vol] 11 U/L Low 16 - 63 [facility] Comment on above: Performed By: #### 2 45137 #### [facility],[address] [place] [address] 41802 Anion gap [Moles/Vol] 15 mmol/L Normal 10 - 20 [facility] Comment on above: Performed By: #### 2 64174 #### [facility],[address] [place], [place] [id number] AST [Catalytic activity/Vol] 20 U/L Normal 13 - 39 [facility] Comment on above: Performed By: #### 2 68184 #### [facility],[address] [place], [place] [id number] B/C RATIO 5 ratio Normal 0 - 30 [facility] Comment on above: Performed By: #### 2 55244 #### [facility],[address] [place] [address] 34003 Bilirubin [Mass/Vol] 0.6 mg/dL Normal 0.2 - 1.0 [facility] Comment on above: Performed By: #### 2 67906 #### [facility],[address] [place] [address] 74986 Calcium [Mass/Vol] 8.9 mg/dL Normal 8.5 - 10.1 [facility] Comment on above: Performed By: #### 2 52705 #### [facility],[address] [place] [address] 78723 Chloride [Moles/Vol] 103 mmol/L Normal 98 - 107 [facility] Comment on above: Performed By: #### 2 45109 #### [facility],[address] [place] [address] 26291 CMP with eGFR Normal [facility] Comment on above: Result Comment: COMP REHENSIVE METABOLIC PANEL Performed By: #### 2 32670 #### [facility],[address] [place] [address] 87425 CO2 [Moles/Vol] 27.6 mmol/L Normal 21.0 - 32.0 [facility] Comment on above: Performed By: #### 2 87616 #### [facility],[address] [place] [address] 17509 Creatinine [Mass/Vol] 0.73 mg/dL Normal 0.55 - 1.02 [facility] Comment on above: Performed By: #### 2 42087 #### [facility],[address] [place], [place] [id number] GFR/1.73 sq M.predicted among non-blacks MDRD (S/P/Bld) [Vol rate/Area] mL/min/{1.73_m2} Normal 60 - 999 [facility] Comment on above: Performed By: #### 2 02817 #### [facility],[address] [place], [place] [id number] Result Comment: ACCO RDING TO THE NATIONAL KIDNEY DISEASE EDUCATION PROGRAM(NKDE), A NORMAL eGFR IS A VALUE GREATER THAN OR EQUAL TO 60 ML/MIN/1.73 SQ METERS. CHRONIC KIDNEY DISEASE: <60mL/MIN/1.73 SQ METERS KIDNEY FAILURE: <15mL/MIN/1.73 SQ METERS THIS TEST SHOULD ONLY BE USED FOR PATIENTS 18 YEARS OF AGE AND OLDER. Globulin (S) [Mass/Vol] 4.5 g/dL High 1.5 - 3.8 [facility] Comment on above: Performed By: #### 2 00272 #### [facility],[address] [place] [address] 05304 Glucose [Mass/Vol] 90 mg/dL Normal 74 - 106 [facility] Comment on above: Performed By: #### 2 61479 #### [facility],[address] [place] [address] 39455 Potassium [Moles/Vol] 3.2 mmol/L Low 3.5 - 5.1 [facility] Comment on above: Performed By: #### 2 30866 #### [facility],[address] [place] [address] 92788 Protein [Mass/Vol] 8.1 g/dL Normal 6.4 - 8.2 [facility] Comment on above: Performed By: #### 2 09995 #### [facility],[address] [place] [address] 82581 Sodium [Moles/Vol] 142 mmol/L Normal 136 - 145 [facility] Comment on above: Performed By: #### 2 98874 #### [facility],[address] [place] [address] 52495 Urea nitrogen [Mass/Vol] 4 mg/dL Low 7 - 18 [facility] Comment on above: Performed By: #### 2 70918 #### [facility],[address] [place] [address] ABDOMEN/PELVIS Won 2023 CT ABDOMEN/PELVIS W [place] [address] Patient: MITZI LAWLER Phone#: : 1995 Age: 28 Gender: F Pt. Type: ER Account: [id number] Location: [facility] Ordering: ISMA RECINOS Exam Date: 03/04/2024/14:55 Family Phys: Charge Code: [id number] Physician: Amite Order #: [id number] Dose#: [id number] PROCEDURE: CT ABDOMEN/PELVIS WITH CONTRAST COMPARISON: [facility], CT, ABDOMEN/PELVIS W CON, 11/26/2023, 0:40. INDICATIONS: [...] 28 Gender: F Pt. Type: ER Account: [id number] Location: [facility] Ordering: ISMA RECINOS Exam Date: 03/04/2024/14:55 Family Phys: Charge Code: [id number] Physician: Amite Order #: [id number] Dose#: 31.6 CONCLUSION: 1. No acute intra-abdominal or pelvic abnormality. 2. Fatty infiltration of the ascending colon, this can be seen with sequela of inflammatory bowel disease versus incidental finding. Dictated by: Britt Tarango MD on 03/04/2024 at 15:14 Approved by: Britt Tarango MD on 03/04/2024 at 15:24 Normal [facility] FACILITY CODING SUMMARYon FACILITY CODING SUMMARY Facility Coding Facility Coding Summary [facility] [address] [place] [address] [phone] 03/04/2024 Patient: MITZI LAWLER Sex: Female : [...] from Providers: Procedures from Nurses/Facility: SUPPLIES ELEVEL 56855-65 1 of 2 Facility Coding This is a partial abstract of information documented in the full record. Muck Farmer must use independent judgment in selecting codes. CPT copyright 2022 [employer]. All Rights Reserved. 2 of 2 Normal [facility] LIPASEon 03-04-2024 Lipase [Catalytic activity/Vol] 29.0 U/L Normal 15.0 - 78.0 [facility] Comment on above: Result Comment: *PLE ASE NOTE THAT RANGES FOR LIPASE HAVE CHANGED OF 05/25/23 DUE TO AN ASSAY UPDATE BY THE RETAIL FIELD REPRESENTATIVE.THE NEW ASSAY RANGE IS 6-250 U/L, WITH A REFERENCE RANGE OF 16-77 U/L. Performed By: #### 2 79366 #### [facility],[address] [place] [address] MED ADMINISTRATION DETAILon 03-04-2024 MED ADMINISTRATION DETAIL Indirect Sales Representative Medication [place] [address] [id number] 03/04/2024 Patient: MITZI LAWLER Sex: Female : 1995 Age: 28y MEASUREMENTS: Wt: 93.0 kg, Ht/Lance: 62.0 in, BMI: 37.49 ALLERGIES: Penicillins Medication Ordered Medication Administration Date/Time 1 of 1 Normal [facility] NURSES CLINICAL REPORT (NOTE S)on 03-04-2024 NURSES CLINICAL REPORT (NOTES) Nurse Narrative [place] [address] [phone] 03/04/2024 Patient: MITZI LAWLER Sex: Female : [...] EDT Hansel Griggs R.N. Tonsillectomy Adenoidectomy -- 10:07 03/04/24 EDT Hansel Griggs R.N. -- 10:07 03/04/24 EDT Hansel Griggs R.N. History 10:03 03/04/24. SOCIAL HX: Current every day heavy tobacco smoker (cigarette)- 1 pack per day. Drug use. (MARIJUANA). No alcohol use. The patient has not traveled outside the [place] Infectious disease exposure: No infectious disease exposure. ABUSE ASSESSMENT: The patient answered no to the question(s) Do you feel safe in your home?, Are you afraid to go home?, Are you afraid of your partner or someone close to you?, Has your partner or someone close to you emotionally, physically, or sexually assaulted you?, Has your partner or someone close to you threatened to harm/ kill you?, Did your partner or someone close to you cause the presenting injury(s)?, Has your partner or someone close to you ever used a weapon towards you?, Have children witnessed violence in the home? and Has your partner or someone close to you physically abused children?. Abuse denied. No report of abuse. SELF HARM ASSESSMENT: Self harm assessment was performed. The patient answered no to the question(s) Have you recently felt down, depressed, or hopeless?, Do you have thoughts of harming or killing yourself?, Do you have a plan for harming or killing yourself?, Have you recently had thoughts about harming or killing others?, Do you have any dangerous items in your possession?, Have you noticed less interest or pleasure in doing things?, Are you here because you tried to hurt yourself? and Have you ever tried to hurt yourself before today?. SKIN INTEGRITY ASSESSMENT: Skin integrity risk assessment was performed. Risk factors identified. LEARNING NEEDS ASSESSMENT: The learning needs assessment revealed no barriers. 2 of 4 Nurse Narrative FALL RISK ASSESSMENT: Fall risk assessment completed. No risk factors identified. NUTRITIONAL RISK ASSESSMENT: No nutritional deficiencies were identified. -- 10:10 03/04/24 CYRUS Griggs R.N. Assessment 10:03 03/04/24. The patient states feels the same. -- 10:10 03/04/24 CYRUS Griggs R.N. Interventions 10:03 03/04/24. Identification band and allergy band on patient. To waiting room. -- 10:10 03/04/24 CYRUS Griggs R.N. PHYSICAL ASSESSMENT 13:25 03/04/24. Ambulatory [...] obtained at this time). -- 14:14 03/04/24 EDT Mariam Maxwell R.N. 14:18 03/04/24. Site #1 started via IV in the right antecubital space with an 18g angiocath with aseptic technique and good blood return; 1 attempt. Blood drawn: rainbow set tube(s). Saline lock flushed with 5 mL saline. -- 14:23 03/04/24 EDT Mariam Maxwell R.N. 14:24 03/04/24. Call light placed in reach of patient. Bed placed in lowest position. Brakes of bed on. -- 14:24 03/04/24 EDT Mariam Maxwell R.N. 15:48 03/04/24. Patient waiting for disposition. -- 15:49 03/04/24 EDT Mariam Luevano (more content not included)... Normal [facility] ORDER SHEET (CPOE ONLY)on ORDER SHEET (CPOE ONLY) Order Sheet Order Sheet [address] [address] [id number] 03/04/2024 Patient: MITZI LAWLER Sex: Female : 1995 Age: 28y MEASUREMENTS: Wt: 93.0 kg, Ht/Lance: 62.0 in, BMI: 37.49 ALLERGIES: Penicillins MEDICATION/IV/DRIP/ FLUID ORDERS Order Description Priority Entered Acknowledged Completed LAB ORDERS Order Description Priority Entered Acknowledged Collected Completed CBC w Diff Stat Stat 14:06 03/04/2024 14:11 03/04/2024 14:18 03/04/2024 Mariam Ornelas Shauna Ewing, D.O. R.N. R.N. CMP Stat Stat 14:06 03/04/2024 14:11 03/04/2024 14:18 03/04/2024 Mariam Ornelas Shauna Ewing, D.O. R.N. R.Janie. Lipase Stat Stat 14:06 03/04/2024 14:11 03/04/2024 14:18 03/04/2024 Mariam Ornelas Shauna Ewing, D.O. R.N. R.Clover Urinalysis Stat Stat 14:06 03/04/2024 14:11 03/04/2024 14:18 03/04/2024 Mariam Ornelas Shauna Ewing, 1 of 2 Order Sheet [place] Urine - HCG Stat 14:06 03/04/2024 14:11 03/04/2024 14:18 03/04/2024 Stat Mariam Ornelas Shauna Ewing, D.O. R.N. [place] DIAGNOSTIC STUDY ORDERS Order Description Priority Entered Acknowledged Completed CT ABD/PEL w IV Cont Stat Stat 14:06 03/04/2024 14:11 14:18 Isma Recinos 03/04/2024 03/04/2024 Mariam Purcell R.N. [place] Order Comments: 14:06 03/04/2024: Status: Unknown. Isma Recinos D.O. Reason for Study: Abdominal Internal Pain STAFF ORDERS Order Description Priority Entered Acknowledged Collected Completed IV Saline Lock 14:06 03/04/2024 14:11 03/04/2024 14:18 03/04/2024 Mariam Ornelas Shauna Ewing, D.O. R.N. R.NVeronica [Electronically signed by Isma Recinos D.O. (03/04/2024 18:50 EDT)] 2 of 2 Normal [facility] PHYS CLINICAL REPORT AND ADD ENon 03-04-2024 PHYS CLINICAL REPORT AND ADDEN Narrative Physician Clinical [address] [address] [id number] 03/04/2024 Patient: MITZI LAWLER [facility]#: [id number] Sex: Female : 1995 Age: 28y Disposition: [...] 1.50 - 7.10 Final EDT 03/04/2024 14:46 Drew # 0.62 x10/UL 0.20 - 1.00 Final [...] 78.0 Final UPDATE BY THE 16:19 EDT RETAIL FIELD REPRESENTATIVE.THE NEW ASSAY RANGE IS 6-250 U/L, WITH [...] Final Abnor (more content not included)... Normal [facility] PHYS CODING SUMMARY AUTOMOTIVE AIRCONDITIONING MECHANIC AB [place] 03-04-2024 PHYS CODING SUMMARY AUTOMOTIVE AIRCONDITIONING MECHANIC ABST Coding Summary Coding Summary [address] [place] [address] [id number] 03/04/2024 Patient: MITZI LAWLER Sex: Female : 1995 Age: 28y ICD-10 Codes R10.84: Generalized abdominal pain R10.84: Generalized abdominal pain This is a partial abstract of information documented in the full record. Muck Farmer must use independent judgment in selecting codes. CPT copyright 2022 [employer]. All Rights Reserved. 1 of 1 Normal [facility] URINEon 03-04-2024 Beta HCG ( test) Ql (U) Negative Normal NEGATIVE [facility] Comment on above: Performed By: #### 2 60367 #### [facility],[address] [place] [address] EXTERNAL QC DONE? YES Normal [facility] Comment on above: Performed By: #### 2 26624 #### [facility],[address] [place] [address] INTERNAL QC PASS [facility] Comment on above: Performed By: #### 2 09111 #### [facility],[address] [place] [address] URINALYSISon 03-04-2024 Amorphous 2+ Normal [facility] Comment on above: Performed By: #### 2 55886 #### [facility],[address] [place] [address] Bacteria 1+ Normal [facility] Comment on above: Performed By: #### 2 11293 #### [facility],[address] [place] [address]3658 Bilirubin Ql (U) Negative Normal NORMAL: NEGATIVE [facility] Comment on above: Performed By: #### 2 66489 #### [facility],[address] [place] [address] 99754 Casts NONE Normal [facility] Comment on above: Performed By: #### 2 59287 #### [facility],[address] [place] [address] 97863 Clarity (U) SL. CLOUDY Abnormal NORMAL: CLEAR [facility] Comment on above: Performed By: #### 2 41483 #### [facility],[address] [place] [address] 59079 Color (U) YELLOW Normal NORMAL: YELLOW [facility] Comment on above: Performed By: #### 2 06158 #### [facility],[address] [place] [address] 77614 Crystals LM Nom (Urine sed) NONE Normal [facility] Comment on above: Performed By: #### 2 11164 #### [facility],[address] [place] [address] 24141 Epi Cells FEW Normal [facility] Comment on above: Performed By: #### 2 88520 #### [facility],[address] [place] [address] ERROR DUE TO TECH ERROR Normal [facility] Comment on above: Performed By: #### 2 82888 #### [facility],[address] [place] [address] 57984 Glucose Ql (U) NORM Normal NORMAL: NORMAL [facility] Comment on above: Performed By: #### 2 18104 #### [facility],[address] [place] [address] 69459 Hemoglobin Ql (U) Negative Normal NORMAL: NEGATIVE [facility] Comment on above: Performed By: #### 2 62314 #### [facility],[address] [place] [address] 40082 Ketone 15 Abnormal NORMAL: NEGATIVE [facility] Comment on above: Performed By: #### 2 79878 #### [facility],[address] [place] [address] 28669 Leukocytes 25 Abnormal NORMAL: NEGATIVE [facility] Comment on above: Performed By: #### 2 13140 #### [facility],[address] [place] [address] 23757 Mucous NONE Normal [facility] Comment on above: Performed By: #### 2 36525 #### [facility],[address] [place] [address] 05510 Nitrite Ql (U) Negative Normal NORMAL: NEGATIVE [facility] Comment on above: Performed By: #### 2 95432 #### [facility],[address] [place] [address] pH (U) 6.0 [pH] Normal NORMAL: 5.0-8.0 [facility] Comment on above: Performed By: #### 2 67321 #### [facility],[address] [place] [address] Protein Ql (U) 15 Abnormal NORMAL: NEGATIVE [facility] Comment on above: Performed By: #### 2 37154 #### [facility],[address] [place] [address] Rbc NONE Normal 0-3/hpf [facility] Comment on above: Performed By: #### 2 05434 #### [facility],[address] [place] [address] Sp [place] 1.020 Normal NORMAL: 1.010-1.030 [facility] Comment on above: Performed By: #### 2 38073 #### [facility],[address] [place] [address] Specimen Type R Normal [facility] Comment on above: Performed By: #### 2 11991 #### [facility],[address] [place] [address] Urinalysis dipstick W Reflex Microscopic panel (U) SEE BELOW Normal [facility] Comment on above: Result Comment: MICR OSCOPIC Performed By: #### 2 22099 #### [facility],[address] [place] [address] Urobilinog 4 Abnormal NORMAL: NORMAL [facility] Comment on above: Performed By: #### 2 88063 #### [facility],[address] [place] [address] Wbc 6-10 Normal 0-5/hpf [facility] Comment on above: Performed By: #### 2 82065 #### [facility],[address] [place] [address] Yeast RARE Normal [facility] Comment on above: Result Comment: ==== FOLLOWING [...] 03/04/24.1547.MG . M Performed By: #### 2 87435 #### [facility],[address] [place] [address] 78331 VISIT SUMMARYon 03-04-2024 VISIT SUMMARY Visit Overview Visit Overview [address] [place] [address] [id number] 03/04/2024 Patient: MITZI LAWLER Sex: Female : [...] GENERALIZED ABDOMINAL PAIN 3 of 3 Normal [facility] CBC + DIFFon 11-26-2023 Baso # 0.03 x10EE3/UL Normal 0.00 - 0.10 [facility] Comment on above: Performed By: #### 2 62739 #### [facility],[address] [place], [place] [id number] Basophils/100 WBC (Bld) 0.2 % Normal 0.0 - 2.0 [facility] Comment on above: Performed By: #### 2 50489 #### [facility],[address] [place] [address] CBC + DIFF Normal [facility] Comment on above: Result Comment: CBC- COMPLETE BLOOD COUNT Performed By: #### 2 91504 #### [facility],[address] [place] [address] 11228 EO # 0.20 x10EE3/UL Normal 0.00 - 0.50 [facility] Comment on above: Performed By: #### 2 86790 #### [facility],[address] [place] [address] Eosinophils/100 WBC (Bld) 1.7 % Normal 0.0 - 7.0 [facility] Comment on above: Performed By: #### 2 72334 #### [place] [address] Erythrocyte distribution width (RBC) [Ratio] 14.6 % Normal 12.0 - 15.6 [facility] Comment on above: Performed By: #### 2 20608 #### [facility],[address] [place] [address] Hematocrit (Bld) [Volume fraction] 42.9 % Normal 34.0 - 46.0 [facility] Comment on above: Performed By: #### 2 03024 #### [facility],[address] [place], [place] [id number] Hemoglobin (Bld) [Mass/Vol] 14.3 g/dL Normal 12.0 - 16.0 [facility] Comment on above: Performed By: #### 2 85169 #### [facility],[address] [place] [address]3748 Lymph # 3.53 x10EE3/UL High 0.80 - 2.80 [facility] Comment on above: Performed By: #### 2 47466 #### [facility],[address] [place], [place] [id number] Lymphocytes/100 WBC (Bld) 30.5 % Normal 20.0 - 45.0 [facility] Comment on above: Performed By: #### 2 83770 #### [facility],[address] [place] [address] MANUAL DIFF N/A Normal [facility] Comment on above: Performed By: #### 2 18838 #### [facility],[address] [place] [address] MCH (RBC) [Entitic mass] 27 pg Normal 27 - 33 [facility] Comment on above: Performed By: #### 2 80551 #### [facility],[address] [place] [address] MCHC 33 X10 3 Normal 32 - 36 [facility] Comment on above: Performed By: #### 2 35612 #### [facility],[address] [place] [address] MCV (RBC) [Entitic vol] 82 fL Normal 80 - 99 [facility] Comment on above: Performed By: #### 2 97242 #### [facility],[address] [place] [address] Drew # 0.82 x10EE3/UL Normal 0.20 - 1.00 [facility] Comment on above: Performed By: #### 2 45535 #### [facility],[address] [place] [address] MONOS % 7.1 % Normal 0.0 - 10.0 [facility] Comment on above: Performed By: #### 2 11885 #### [facility],[address] [place] [address] Morphology Ayan (Bld) [Interp] N/A Normal [facility] Comment on above: Performed By: #### 2 72649 #### [facility],[address] [place] [address] Neut # 7.02 x10EE3/UL Normal 1.50 - 7.10 [facility] Comment on above: Performed By: #### 2 00988 #### [facility],[address],[place] [address] Neutrophils/100 WBC (Bld) 60.5 % Normal 46.0 - 76.0 [facility] Comment on above: Performed By: #### 2 60366 #### [facility],[address] [place] [address] 22425 PLATELET 284 x10EE3/UL Normal 150 - 450 [facility] Comment on above: Performed By: #### 2 62475 #### [facility],[address] [place], [place] [id number] Platelet mean volume (Bld) [Entitic vol] 8.4 fL Normal 6.6 - 10.5 [facility] Comment on above: Result Comment: AUTO MATED DIFFERENTIAL Performed By: #### 2 64107 #### [facility],[address] [place] [address] RBC 5.24 x 10EE6/UL Normal 4.10 - 5.30 [facility] Comment on above: Performed By: #### 2 20011 #### [facility],[address] [place] [address] WBC 11.6 x 10EE3/UL High 4.5 - 10.8 [facility] Comment on above: Performed By: #### 2 37112 #### [facility],[address] [place] [address] 31859 CMP with eGFRon 11-26-2023 AGE 28 years Normal [facility] Comment on above: Performed By: #### 2 66216 #### [facility],[address] [place] [address] 33945 Albumin [Mass/Vol] 3.3 g/dL Low 3.4 - 5.0 [facility] Comment on above: Performed By: #### 2 13970 #### [facility],[address] [place] [address] 15660 Albumin/Globulin [Mass ratio] 0.8 {ratio} Low 0.9 - 1.6 [facility] Comment on above: Performed By: #### 2 45478 #### [facility],[address] [place] [address] 12987 ALK PHOS 104 U/L Normal 46 - 116 [facility] Comment on above: Performed By: #### 2 90650 #### [facility],[address] [place] [address] 85019 ALT [Catalytic activity/Vol] 9 U/L Low 16 - 63 [facility] Comment on above: Performed By: #### 2 49871 #### [facility],[address] [place] [address] 39895 Anion gap [Moles/Vol] 12 mmol/L Normal 10 - 20 [facility] Comment on above: Performed By: #### 2 15901 #### [facility],[address] [place] [address] 20794 AST [Catalytic activity/Vol] 12 U/L Low 13 - 39 [facility] Comment on above: Performed By: #### 2 31997 #### [facility],[address] [place] [address] 30861 B/C RATIO 10 ratio Normal 0 - 30 [facility] Comment on above: Performed By: #### 2 10153 #### [facility],[address] [place] [address] 74640 Bilirubin [Mass/Vol] 0.2 mg/dL Normal 0.2 - 1.0 [facility] Comment on above: Performed By: #### 2 21758 #### [facility],[address] [place] [address] 53323 Calcium [Mass/Vol] 9.4 mg/dL Normal 8.5 - 10.1 [facility] Comment on above: Performed By: #### 2 57135 #### [facility],[address] [place] [address] 68354 Chloride [Moles/Vol] 102 mmol/L Normal 98 - 107 [facility] Comment on above: Performed By: #### 2 23402 #### [facility],[address] [place] [address] 81617 CMP with eGFR Normal [facility] Comment on above: Result Comment: COMP REHENSIVE METABOLIC PANEL Performed By: #### 2 38128 #### [facility],[address] [place] [address] 07483 CO2 [Moles/Vol] 27.3 mmol/L Normal 21.0 - 32.0 [facility] Comment on above: Performed By: #### 2 65670 #### [facility],[address] [place] [address] 78825 Creatinine [Mass/Vol] 0.77 mg/dL Normal 0.55 - 1.02 [facility] Comment on above: Performed By: #### 2 45420 #### [facility],[address] [place] [address] 12686 GFR/1.73 sq M.predicted among non-blacks MDRD (S/P/Bld) [Vol rate/Area] mL/min/{1.73_m2} Normal 60 - 999 [facility] Comment on above: Performed By: #### 2 47801 #### [facility],[address] [place] [address] 92827 Result Comment: ACCO RDING TO THE NATIONAL KIDNEY DISEASE EDUCATION PROGRAM(NKDE), A NORMAL eGFR IS A VALUE GREATER THAN OR EQUAL TO 60 ML/MIN/1.73 SQ METERS. CHRONIC KIDNEY DISEASE: <60mL/MIN/1.73 SQ METERS KIDNEY FAILURE: <15mL/MIN/1.73 SQ METERS THIS TEST SHOULD ONLY BE USED FOR PATIENTS 18 YEARS OF AGE AND OLDER. Globulin (S) [Mass/Vol] 3.9 g/dL High 1.5 - 3.8 [facility] Comment on above: Performed By: #### 2 36089 #### [facility],[address] [place] [address] 74998 Glucose [Mass/Vol] 107 mg/dL High 74 - 106 [facility] Comment on above: Performed By: #### 2 50043 #### [facility],[address] [place] [address] 54577 Potassium [Moles/Vol] 3.2 mmol/L Low 3.5 - 5.1 [facility] Comment on above: Performed By: #### 2 42114 #### [facility],[address] [place] [address] 20557 Protein [Mass/Vol] 7.2 g/dL Normal 6.4 - 8.2 [facility] Comment on above: Performed By: #### 2 58079 #### [facility],[address] [place] [address] 09896 Sodium [Moles/Vol] 138 mmol/L Normal 136 - 145 [facility] Comment on above: Performed By: #### 2 78166 #### [facility],[address] [place] [address] 98228 Urea nitrogen [Mass/Vol] 8 mg/dL Normal 7 - 18 [facility] Comment on above: Performed By: #### 2 26478 #### [facility],[address] [place] [address] ABDOMEN/PELVIS [facility] 2023 CT ABDOMEN/PELVIS [place] [address] Patient: MITZI LAWLER Phone#: : 1995 Age: 28 Gender: F Pt. Type: ER Account: [id number] Location: [facility] Ordering: DR. GRACIE SHARMA Exam Date: 11/26/2023/0:40 Family Phys: Charge Code: [id number] Physician: Amite Order #: [id number] Dose#: 33.4 PROCEDURE: CT ABDOMEN/PELVIS WITH CONTRAST [...] 28 Gender: F Pt. Type: ER Account: [id number] Location: [facility] Ordering: DR. GRACIE SHARMA Exam Date: 11/26/2023/0:40 Family Phys: Charge Code: [id number] Physician: Amite Order #: [id number] Dose#: 33.4 CONCLUSION: 1. There is no evidence of acute abdominal or pelvic abnormality. Dictated by: Paola Seth MD on 11/26/2023 at 14:31 Approved by: Paola Seth MD on 11/26/2023 at 14:36 Normal [facility] LIPASEon 11-26-2023 Lipase [Catalytic activity/Vol] 39.0 U/L Normal 15.0 - 78.0 [facility] Comment on above: Result Comment: *PLE ASE NOTE THAT RANGES FOR LIPASE HAVE CHANGED OF 05/25/23 DUE TO AN ASSAY UPDATE BY THE RETAIL FIELD REPRESENTATIVE.THE NEW ASSAY RANGE IS 6-250 U/L, WITH A REFERENCE RANGE OF 16-77 U/L. Performed By: #### 2 00003 #### [facility],[address] [place], [place] [id number] URINEon 11-26-2023 Beta HCG ( test) Ql (U) Negative Normal NEGATIVE [facility] Comment on above: Performed By: #### 2 94777 ####[facility],[address] [place] [address] EXTERNAL QC DONE? YES Normal [facility] Comment on above: Performed By: #### 2 72580 ####[facility],[address] [place] [address] INTERNAL QC PASS Normal [facility] Comment on above: Performed By: #### 2 79723 ####[facility],[address] [place] [address] URINALYSISon 11-26-2023 Amorphous NONE Normal [facility] Comment on above: Performed By: #### 2 71975 ####[facility],[address] [place] [address] Bacteria 1+ Normal [facility] Comment on above: Performed By: #### 2 60342 ####[facility],[address] [place] [address] 39098 Bilirubin Ql (U) Negative Normal NORMAL: NEGATIVE [facility] Comment on above: Performed By: #### 2 92978 ####[facility],[address] [place], [place] [id number] Casts NONE Normal [facility] Comment on above: Performed By: #### 2 23528 ####[facility],[address] [place], [place] [id number] Clarity (U) sl.cloudy Normal NORMAL: CLEAR [facility] Comment on above: Performed By: #### 2 56840 ####[facility],[address] [place], [place] [id number] Color (U) yellow Normal NORMAL: YELLOW [facility] Comment on above: Performed By: #### 2 33713 ####[facility],[address] [place] [address] 48991 Crystals LM Nom (Urine sed) NONE Normal [facility] Comment on above: Performed By: #### 2 71066 ####[facility],[address] [place] [address] 59850 Epi Cells FEW Normal [facility] Comment on above: Performed By: #### 2 97134 ####[facility],[address] [place] [address] 99723 Glucose Ql (U) NORM Normal NORMAL: NORMAL [facility] Comment on above: Performed By: #### 2 62697 ####[facility],[address] [place] [address] 94723 Hemoglobin Ql (U) 10 Abnormal NORMAL: NEGATIVE [facility] Comment on above: Performed By: #### 2 87644 ####[facility],[address] [place] [address] 41877 Ketone Negative Normal NORMAL: NEGATIVE [facility] Comment on above: Performed By: #### 2 57558 ####[facility],[address] [place] [address] 38209 Leukocytes 500 Abnormal NORMAL: NEGATIVE [facility] Comment on above: Performed By: #### 2 44203 ####[facility],[address] [place] [address] 87641 Mucous 1+ Normal [facility] Comment on above: Performed By: #### 2 46362 ####[facility],[address] [place] [address] 43343 Nitrite Ql (U) Negative Normal NORMAL: NEGATIVE [facility] Comment on above: Performed By: #### 2 83631 ####[facility],[address] [place] [address] 91167 pH (U) 6 [pH] Normal NORMAL: 5.0-8.0 [facility] Comment on above: Performed By: #### 2 88245 ####[facility],[address] [place] [address] Protein Ql (U) 15 Abnormal NORMAL: NEGATIVE [facility] Comment on above: Performed By: #### 2 85720 ####[facility],[address] [place] [address] Rbc 0-5 Normal 0-3/hpf [facility] Comment on above: Performed By: #### 2 46019 ####[facility],[address] [place] [address] Sp [place] 1.015 Normal NORMAL: 1.010-1.030 [facility] Comment on above: Performed By: #### 2 [id number] ####[facility],[address] [place] [address] Specimen Type Clean catch [facility] Comment on above: Performed By: #### 2 [id number] ####[facility],[address] [place] [address] Urinalysis dipstick W Reflex Microscopic panel (U) SEE BELOW Normal [facility] Comment on above: Result Comment: MICR OSCOPIC Performed By: #### 2 [id number] ####[facility],[address] [place] [address] Urobilinog 1 Abnormal NORMAL: NORMAL [facility] Comment on above: Performed By: #### 2 [id number] ####[facility],[address] [place] [address] Wbc 11-15 Normal 0-5/hpf [facility] Comment on above: Performed By: #### 2 [id number] ####[facility],[address] [place] [address] Yeast NONE Normal [facility] Comment on above: Performed By: #### 2 [id number] ####[facility],[address] [place] [address] Abdomen/Pelvis W IV Cont ONL Yon 06-15-2023 Abdomen/Pelvis W IV Cont ONLY [facility] Imaging Services [address] [place] [address] Abdomen/Pelvis W IV Cont ONLY MR#: [id number] Acct: [id number] Name: MITZI LAWLER Rep #: [id number] : 1995 F 28 From: Angelia Gonzalez PCP: Care Physician,No Primary Status: REG ER Study: Abdomen/Pelvis W IV Cont ONLY Date of Exam: Exam# [id number] Ordering Dr: Myron Machuca DO -[id number] EXAM: CT Abdomen And Pelvis W/ Contrast Injection HISTORY: colitis LLQ TECHNIQUE: Routine protocol CT abdomen pelvis. IV Contrast: IV 100mL Isovue-370 . Oral Contrast: without. Sagittal and coronal images were reconstructed. RADIATION DOSAGE (If Supplied By Facility): CTDIvol = ( 17.07 ) mGy, DLP = ( 1215.28 ) mGycm Individualized dose optimization techniques were used for this CT. COMPARISON: CT abdomen and pelvis 07/21/2019. LIMITATIONS: None. FINDINGS: LOWER CHEST: Lung bases are clear. LIVER: Unremarkable. GALLBLADDER/BILE DUCTS: Gallbladder is surgically absent. PANCREAS: Unremarkable. SPLEEN: Unremarkable. ADRENAL GLANDS: Unremarkable. KIDNEYS / URETERS: Unremarkable. BOWEL / MESENTERY: Mild focal stranding adjacent to the wall of the proximal sigmoid colon, surrounding a fat attenuation structure, with mild asymmetric colonic wall thickening. No bowel obstruction. APPENDIX: Identified and normal. No evidence of acute appendicitis. PERITONEUM: No free air. No free fluid. VESSELS: Abdominal aorta is normal caliber. RETROPERITONEUM: Unremarkable. REPRODUCTIVE ORGANS: 2.5 cm cyst or follicle in the left ovary. BLADDER: Unremarkable. ABDOMINAL WALL: Unremarkable. BONES: No acute abnormality. OTHER: None. CT/Abdomen/Pelvis W IV Cont ONLY IMPRESSION: Findings consistent with acute epiploic appendagitis of the proximal sigmoid colon. Electronically Signed: Angelia Armas MD at 3:54 EST , CC: Dr. Myron Machuca, DO; No Primary Care Physician Light Equipment Operator: Signed Normal [facility] Absolute lymphocyte countOrd ered By: Myron Machuca on 06-15-2023 Lymphocytes Auto (Unsp spec) [#/Vol] 3.10 10*3/uL 0.83-4.51 [facility] Automated lymphocyte count a s percentage of total leukocytesOrdered By: Myron Machuca on 06-15-2023 Lymphocytes/100 WBC Auto (Unsp spec) 25.5 % 19-41 [facility] Basic Metabolic Profile (BMP )on 06-15-2023 BUN/CRE 8.6 RATIO Low 10-20 [facility] Comment on above: Performed By: #### L 100.0100, L700.6800, L500.2500 #### [facility] [address] [place], [address] CA,Total 9.5 mg/dL Normal 8.5-10.1 [facility] Comment on above: Performed By: #### L 100.0100, L700.6800, L500.2500 #### [facility] [address] [place], [address] Chloride [Moles/Vol] 107 mmol/L Normal 98-107 [facility] Comment on above: Performed By: #### L 100.0100, L700.6800, L500.2500 #### [facility] [address] [place], [address] CO2 [Moles/Vol] 26.0 mmol/L Normal 21.0-32.0 [facility] Comment on above: Performed By: #### L 100.0100, L700.6800, L500.2500 #### [facility] [address] [place], [address] Creatinine [Mass/Vol] 0.58 mg/dL Normal 0.55-1.02 [facility] Comment on above: Result Comment: The validity of the calculated GFR GFRAA in patients over 70 years has not been determined. Clinical correlation is essential. Performed By: #### L 100.0100, L700.6800, L500.2500 #### [facility] [address] [place], [address] ECRCL 161.90 ml/min Normal [facility] Comment on above: Performed By: #### L 100.0100, L700.6800, L500.2500 #### [facility] [address] [place], [address] EST GFR - AA 159 mL/min Normal >60 [facility] Comment on above: Result Comment: Afri can [place] GFR Calc Performed By: #### L 100.0100, L700.6800, L500.2500 #### [facility] [address] [place], [address] GAP 6 Normal 5-15 [facility] Comment on above: Performed By: #### L 100.0100, L700.6800, L500.2500 #### [facility] [address] [place], [address] GFR/1.73 sq M.predicted among non-blacks MDRD (S/P/Bld) [Vol rate/Area] 131 mL/min/{1.73_m2} Normal >60 [facility] Comment on above: Result Comment: Non- GFR Calc Performed By: #### L 100.0100, L700.6800, L500.2500 #### [facility] [address] [place], [address] Glucose [Mass/Vol] 103 mg/dL Normal 74-106 [facility] Comment on above: Result Comment: Fast ing Glucose result from 100 to 125 mg/dL suggests IMPAIRED HOMEOSTASIS per A.D.A. criteria. Performed By: #### L 100.0100, L700.6800, L500.2500 #### [facility] [address] [place], [address] Potassium [Moles/Vol] 3.5 mmol/L Normal 3.5-5.1 [facility] Comment on above: Performed By: #### L 100.0100, L700.6800, L500.2500 #### [facility] [address] [place], [address] Sodium [Moles/Vol] 139 mmol/L Normal 136-145 [facility] Comment on above: Performed By: #### L 100.0100, L700.6800, L500.2500 #### [facility] [address] [place], [address] Urea nitrogen [Mass/Vol] 5 mg/dL Low 7-18 [facility] Comment on above: Performed By: #### L 100.0100, L700.6800, L500.2500 #### [facility] [address] [place], [address] Basophil percentageOrdered B y: Myron Machuca on 06-15-2023 Basophils/100 WBC (Bld) 0.5 % 0-1 [facility] Chloride [Moles/Vol] 107 mmol/L 98-107 [facility] Eosinophils/100 WBC (Bld) 0.8 % 0-5 [facility] Glucose [Mass/Vol] 103 mg/dL 74-106 [facility] Comment on above: Fasting Glucose resu lt from 100 to 125 mg/dL suggests IMPAIRED HOMEOSTASIS per A.D.A. criteria. Hemoglobin (Bld) [Mass/Vol] 13.5 g/dL 12.0-15.0 [facility] Monocytes/100 WBC (Bld) 5.3 % 0-10 [facility] Neutrophils (Bld) [#/Vol] 8.2 10*3/uL 2.0-7.7 [facility] Neutrophils/100 WBC (Bld) 67.4 % 47-70 [facility] Potassium [Moles/Vol] 3.5 mmol/L 3.5-5.1 [facility] Sodium [Moles/Vol] 139 mmol/L 136-145 [facility] WBC (Bld) [#/Vol] 12.2 10*3/uL 4.4-11.0 [facility] CBC W/Diff, Automatedon 05-28 Absolute Lymph 3.10 X10 3/uL Normal 0.83-4.51 [facility] Comment on above: Performed By: #### L 100.0100, L700.6800, L500.2500 #### [facility] [address] [place], [address] Absolute Neut 8.2 X10 3/uL High 2.0-7.7 [facility] Comment on above: Performed By: #### L 100.0100, L700.6800, L500.2500 #### [facility] [address] [place], [address] Basophils/100 WBC (Bld) 0.5 % Normal 0-1 [facility] Comment on above: Performed By: #### L 100.0100, L700.6800, L500.2500 #### [facility] [address] [place], [address] Eosinophils/100 WBC (Bld) 0.8 % Normal 0-5 [facility] Comment on above: Performed By: #### L 100.0100, L700.6800, L500.2500 #### [facility] [address] [place], [address] Erythrocyte distribution width (RBC) [Ratio] 15.4 % High 11.6-14.6 [facility] Comment on above: Performed By: #### L 100.0100, L700.6800, L500.2500 #### [facility] [address] [place], [address] Hematocrit (Bld) [Volume fraction] 44.7 % Normal 37-47 [facility] Comment on above: Performed By: #### L 100.0100, L700.6800, L500.2500 #### [facility] [address] [place], [address] Hemoglobin (Bld) [Mass/Vol] 13.5 g/dL Normal 12.0-15.0 [facility] Comment on above: Performed By: #### L 100.0100, L700.6800, L500.2500 #### [facility] [address] [place], [address] IG% 0.500 Normal 0.0-0.9 [facility] Comment on above: Result Comment: IG% - Immature Granulocytes (promyelocytes, myelocytes and metamyelocytes) > 1% indicates that a LEFT SHIFT is Present. Performed By: #### L 100.0100, L700.6800, L500.2500 #### [facility] [address] [place], [address] Lymphocytes/100 WBC (Bld) 25.5 % Normal 19-41 [facility] Comment on above: Performed By: #### L 100.0100, L700.6800, L500.2500 #### [facility] [address] [place], [address] MCH (RBC) [Entitic mass] 24.8 pg Low 27.0-32.0 [facility] Comment on above: Performed By: #### L 100.0100, L700.6800, L500.2500 #### [facility] [address] [place], [address] MCHC (RBC) [Mass/Vol] 30.2 g/dL Low 32-36 [facility] Comment on above: Performed By: #### L 100.0100, L700.6800, L500.2500 #### [facility] [address] [place], [address] MCV (RBC) [Entitic vol] 82.0 fL Normal 81-99 [facility] Comment on above: Performed By: #### L 100.0100, L700.6800, L500.2500 #### [facility] [address] [place], [address] Monocytes/100 WBC (Bld) 5.3 % Normal 0-10 [facility] Comment on above: Performed By: #### L 100.0100, L700.6800, L500.2500 #### [facility] [address] [place], [address] Neutrophils/100 WBC (Bld) 67.4 % Normal 47-70 [facility] Comment on above: Performed By: #### L 100.0100, L700.6800, L500.2500 #### [facility] [address] [place], [address] Nucleated RBC (Bld) [#/Vol] 0 10*3/uL Normal 0-5 [facility] Comment on above: Performed By: #### L 100.0100, L700.6800, L500.2500 #### [facility] [address] [place], [address] Platelet mean volume (Bld) [Entitic vol] 10.8 fL Normal 6.2-12.0 [facility] Comment on above: Performed By: #### L 100.0100, L700.6800, L500.2500 #### [facility] [address] [place], [address] Platelets (Bld) [#/Vol] 311 10*3/uL Normal 150-450 [facility] Comment on above: Performed By: #### L 100.0100, L700.6800, L500.2500 #### [facility] [address] [place], [address] RBC (Bld) [#/Vol] 5.45 10*6/uL High 4.2-5.4 [facility] Comment on above: Performed By: #### L 100.0100, L700.6800, L500.2500 #### [facility] [address] [place], [address] RDW SD 45.5 fl High 35.1-43.9 [facility] Comment on above: Performed By: #### L 100.0100, L700.6800, L500.2500 #### [facility] [address] [place], [address] WBC (Bld) [#/Vol] 12.2 10*3/uL High 4.4-11.0 [facility] Comment on above: Performed By: #### L 100.0100, L700.6800, L500.2500 #### [facility] [address] [place], [address] Determination of erythrocyte mean corpuscular volume (MCV)Ordered By: Myron Machuca on 06-15-2023 MCV (RBC) [Entitic vol] 82.0 fL 81-99 [facility] Emergency Department Summary on 06-15-2023 Emergency Department Summary [facility] Medical Records Department [address] [place] [address] Emergency Department Summary 06/15/23 MR#: [id number] Acct: [id number] Name: MITZI LAWLER Rep #: [id number] : 1995 28 From: Myron Machuca DO PCP: Care Physician,No Primary Status:DEP ER Location: ED HPI History of Present Illness Chief Complaint: Abd Pain Informant: patient Narrative Narrative: 28-year-old female presenting to the emergency room for chief complaint of abdominal pain. 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 She states that now she is having blood in the stool. She states that she had a very similar occurrence in 2019. She was seen by this physician was diagnosed with colitis from the CT. She states that she followed up but did not require a colonoscopy. She has not had a reoccurrence until today. She notes her mom has a history of diverticulitis. Patient denies any fevers. No urinary symptoms. She denies risk of secondary to sterilization. She denies mucus in the stool. She notes that the stool is formed. [facility] Medical History (Updated 06/15/23 @ 04:[address] Myron Machuca DO) Anxiety delivery delivered Colitis Depression PTSD (post-traumatic stress disorder) Home Medications NK 06/15/23 [History Last Taken Unknown] Allergy/AdvReac Type Severity Reaction Status Date / Time amoxicillin Allergy Anaphylaxis Verified 06/15/23 01:50 cefprozil [From Cefzil] Allergy Itching Verified 06/15/23 01:50 Penicillins [PCN] Allergy Anaphylaxis Verified 06/15/23 01:50 bupropion [From Wellbutrin] AdvReac Vomiting Verified 06/15/23 01:50 Surgical History History of tonsillectomy and adenoidectomy Hx of cholecystectomy Social History Smoking Status: Current every day smoker tobacco type: cigarettes ROS ROS ED Constitutional Constitutional ED: Denies chills, fever(s) or weight loss Eyes Eyes: Denies change in vision or diplopia ENT ENT ED: Denies ear pain, rhinorrhea or sore throat Cardiovascular Cardiovascular: Denies chest pain, orthopnea, palpitations or racing heartbeat Respiratory/Chest Respiratory/Chest: Denies cough, dyspnea or orthopnea Gastrointestinal Gastrointestinal: Reports abdominal pain and other Details: Bright red blood per rectum ; Denies constipation, diarrhea, nausea or vomiting Genitourinary Genitourinary ED: Denies dysuria, hematuria or urinary frequency Musculoskeletal Musculoskeletal: Denies arthralgias or myalgias Integumentary Denies abscess or rash Neurologic Neurologic: Denies headache(s) or weakness Psychiatric Psychiatric: Denies anxiety, depression, suicidal ideation or suicidal thoughts Endocrine Endocrinology: Denies polydipsia, polyphagia or polyuria Allergic/Immunologi c Allergic/Immunologi c ED: Denies mouth swelling, tongue swelling or urticaria EXAM Physical Exam Const Vital Signs: 06/15/23 01:49 06/15/23 03:56 Temperature 97.3 F L Temperature Source Temporal Pulse Rate 91 77 Respiratory Rate 16 16 Blood Pressure 145/75 H 96/64 Blood Pressure Mean 98 74 Pulse Ox 98 96 Oxygen Delivery Method Room Air Room Air Positive well nourished, well developed and obese General Appearance ED: well developed Nutritional Appearance: obese HEENT Reports normocephalic, head/scalp atraumatic and moist mucous membranes Eyes PERRL and EOMs intact bilaterally Neck no lymphadenopathy, supple and no JVD Resp normal respiratory effort and clear to auscultation bilaterally Cardio regular rate, regular rhythm and no murmurs GI Inspection: Negative for abdominal distention Auscultation: normoactive bowel sounds Palpation: soft and tender LLQ; Negative for guarding or rebound tenderness present Back/Spine no CVA tenderness and normal ROM Extremity normal to inspection General Extremety ED: Negative for edema General Extremity: Negative for edema Neuro oriented x3 and CN's II-XII intact bilaterally Sensorium / Orientation: alert Motor Exam: strength 5/5 throughout Psych mental status grossly normal Mood Affect: Negative for depressed or tearful Skin no rashes or lesions noted and no wounds MDM MDM MDM Narrative Medical decision making narrative: White count slightly elevated 12.2 hemoglobin 13.5 platelet count 311. test negative. Creatinine 0.[address] of the abdomen pelvis with IV contrast was obtained. This shows some inflammatory changes around the proximal aspect of the sigmoid colon. Possible epiploic appendagitis. Although I do not believe that should necessarily cause you to have bright red re (more content not included)... Normal [facility] Erythrocyte distribution wid th ratioOrdered By: Myron Machuca on 06-15-2023 Erythrocyte distribution width (RBC) [Ratio] 15.4 % 11.6-14.6 [facility] Erythrocyte distribution wid th standard deviationOrdered By: Myron Machuca on 06-15-2023 Erythrocyte distribution width (RBC) [Entitic vol] 45.5 fL 35.1-43.9 [facility] Hematocrit Auto (Bld) [Volum e fraction]Ordered By: Myron Machuca on 06-15-2023 Hematocrit (Bld) [Volume fraction] 44.7 % 37-47 [facility] Immature granulocytes/100 WB C Auto (Bld)Ordered By: Myron Machuca on 06-15-2023 Immature granulocytes/100 WBC (Bld) 0.500 % 0.0-0.9 [facility] Comment on above: IG% - Immature Granu locytes (promyelocytes, myelocytes and metamyelocytes) > 1% indicates that a LEFT SHIFT is Present. Laboratory - Chemistry and C hemistry - challengeOrdered By: Myron Machuca on 06-15-2023 CO2 [Moles/Vol] 26.0 mmol/L 21.0-32.0 [facility] Urea nitrogen/Creatinine [Mass ratio] 8.6 mg/mg 10-20 [facility] Laboratory - Hematology and Cell countsOrdered By: Myron Machuca on 06-15-2023 MCH (RBC) [Entitic mass] 24.8 pg 27.0-32.0 [facility] MCHC (RBC) [Mass/Vol] 30.2 g/dL 32-36 [facility] Nucleated RBC/100 WBC (Bld) [Ratio] 0 % 0-5 [facility] Platelets (Bld) [#/Vol] 311 10*3/uL 150-450 [facility] No Panel InformationOrdered By: Myron Machuca on 06-15-2023 Estimated Creatinine Clearance Calc 161.90 ml/min [facility] Estimated GFR (MDRD) Amer 159 mL/min >60 [facility] Comment on above: GFR Calc Estimated GFR (MDRD) Non-Af Amer 131 mL/min >60 [facility] Comment on above: Non- GFR Calc Platelet mean volume Bryan-Ec ker (Bld) [Entitic vol]Ordered By: Myron Machuca on 06-15-2023 Platelet mean volume (Bld) [Entitic vol] 10.8 fL 6.2-12.0 [facility] ,Serum,hCG Quali.on 01-19-2024 HCG, SERUM QUAL Negative Normal [facility] Comment on above: Performed By: #### L 100.0100, L700.6800, L500.2500 #### [facility] [address] [place], [address] RBC Auto (Bld) [#/Vol]Ordere d By: Myron Machuca on 06-15-2023 RBC (Bld) [#/Vol] 5.45 10*6/uL 4.2-5.4 [facility] Serum or plasma calcium suzette urement (mass/volume)Ordered By: Myron Machuca on 06-15-2023 Calcium [Mass/Vol] 9.5 mg/dL 8.5-10.1 [facility] Serum or plasma choriogonado tropin detectionOrdered By: Myron Machuca on 06-15-2023 HCG ( test) Ql Negative [facility] Serum or plasma creatinine m easurement (mass/volume)Ordered By: Myron Machuca on 06-15-2023 Creatinine [Mass/Vol] 0.58 mg/dL 0.55-1.02 [facility] Comment on above: The validity of the calculated GFR & GFRAA in patients over 70 years has not been determined. Clinical correlation is essential. Serum or plasma urea nitroge n measurement (mass/volume)Ordered By: Myron Machuca on 06-15-2023 Urea nitrogen [Mass/Vol] 5 mg/dL 7-18 [facility] Thin prep Papanicolaou smear with manual screeningOrdered By: Myron Machuca on 06-15-2023 Thin prep Papanicolaou smear with manual screening 6 5-15 [facility] CNOVon 06-04-2023 CNOV Office Visit ([facility]WSTR) ---- MITZI LAWLER ([id number]) 1995 F Date Time Provider Department 06/04/23 11:30 AM [facility] NAVARROW[facility] During your visit today, we recorded the following information about you: Temperature Pulse Respiration Blood pressure 97.3 degrees 87/minute 21/minute 120/68 Weight 102.2 kg Bonnie Navarro APRN.CNP 06/04/2023 12:28 PM Signed Subjective HPI HPI [...] 06/24/2020t had 2 previous C sections in [place]. She desires a . I have asked her to obtain her operative report from her last delivery in [place]. I have also asked the patient to activate her MyChart and I will send her EMMIS on and . I have advised her to watch these EMMIs prior to her next appointment. 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 Down from 1 pack/day. Discussed risks of smoking during . Advised pt to quit.TKRN PAST SURGICAL HISTORY Procedure Laterality Date SECTION HX x2 CHOLECYSTECTOMY lap susana INSERTION OF IUD 11/2016 Mirena-removed TONSILLECTOMY AND ADENOIDECTOMY HX childhood ALLERGIES Penicillins, Bupropion, and Cefprozil MEDICATIONS trimethoprim-polymy lupe (POLYTRIM) 10,000 unit- 1 mg/mL ophthalmic solution [...] Left c (more content not included)... [facility] MIT[facility] ([id number]) 1995 F Date Time Provider Department 01/13/23 [facility] During your visit today, we recorded the following information about you: Yanick Victor APRN.CNP 01/13/2023 8:08 AM Signed Patient is on [...] Reviewed: 01/09/2023 Reviewed by: Juan R Szymanski APRN.ADOLESCENT MEDICINE SPECIALIST - Fully Assessed Reason for Visit: Results [...] Encounter Status:Closed by ROSI GUILLERMO on 01/15/23 [facility] Bacteria Ur Culton 3 Bacteria identified Cx [...] <=8 , Intermediate >8 , Resistant >16 Piperacillin/Tazoba c S <=4 F Susceptible <=16 , Intermediate [...] <=8 , Intermediate >8 , Resistant >16 Piperacillin/Tazoba c S <=4 F Susceptible <=16 , Intermediate [...] , Intermediate >32 , Resistant >64 Abnormal [facility] Comment on above: Performed By: #### 6 30-4 #### [facility] CLIA [id number] [address] [place] [address] [place] CNG[place] 01-09-2023 CNOV Office Visit ([facility]) ---- MITZI LAWLER ([id number]) 1995 F Date Time Provider Department 01/09/23 3:45 PM [facility] During your visit today, we recorded the following information about you: Temperature Pulse Respiration Blood pressure 97.9 degrees 64/minute 16/minute 116/68 Weight 96.2 kg Juan R Szymanski APRN.ADOLESCENT MEDICINE SPECIALIST 01/09/2023 4:00 PM Signed Subjective HPI A nontoxic appearing female presents to urgent care with chief complaint of possible UTI. Duration of symptoms 1 week. Associated symptoms dysuria, frequency, and urgency. Patient has history of UTIs in past with similar signs and symptoms. Patient denies the use of any eobt-dgf-gatorua medications or home remedies for symptom management. [...] 06/24/2020t had 2 previous C sections in [place]. She desires a . I have asked her to obtain her operative report from her last delivery in [place]. I have also asked the patient to [...] of breath, (more content not included)... Normal [facility] UA DIP, URINE (POC)on 2022 BILIRUBIN UA (POCT) Negative Negative [facility] CLARITY UA (POCT) Cloudy [facility] COLOR UA (POCT) Yellow [facility] GLUCOSE UA (POCT) Negative Negative mg/dL [facility] HEMOGLOBIN/BLOOD UA (POCT) Small Abnormal Negative [facility] KETONE UA (POCT) Negative Negative mg/dL [facility] LEUKOCYTES UA (POCT) Small Abnormal Negative [facility] NITRITE UA (POCT) Positive Abnormal Negative [facility] PH UA (POCT) 5.0 4.5 - 8.0 [facility] Protein Ql (U) Negative Negative mg/dL [facility] SPECIFIC GRAVITY UA (POCT) 1.015 1.005 - 1.030 [facility] UROBILINOGEN UA (POCT) 0.2 E.U./dL Katherine l E.U./dL [facility] ACETAMINOPHENon 11-27-2022 Acetaminophen [Mass/Vol] ug/mL Normal 10.0 - 30.0 [facility] Comment on above: Performed By: #### A CETA #### [address] [place] [address] ALCOHOLon 11-27-2022 Ethanol [Mass/Vol] mg/dL Normal [facility] Comment on above: Result Comment: FOR MEDICAL USE ONLY. . REF VALUES <10 Performed By: #### A LC #### [address] [address] CBC AND DIFFERENTIALon 11-27 % AUTOMATED IMMATURE GRAN 0.4 % Normal 0.0 - 0.9 [facility] Comment on above: Result Comment: Deidre ture Granulocyte Count (IG) includes promyelocytes, myelocytes and metamyelocytes but does not include bands. Percent differential counts (%) should be interpreted in the context of the absolute cell counts (cells/L). Performed By: #### C BCDF #### [address] [address] Basophils (Bld) [#/Vol] 0.04 10*3/uL Normal 0.00 - 0.10 [facility] Comment on above: Performed By: #### C BCDF #### [address] [address] Basophils/100 WBC (Bld) 0.3 % Normal 0.0 - 2.0 [facility] Comment on above: Performed By: #### C BCDF #### [address] [address] Eosinophils (Bld) [#/Vol] 0.10 10*3/uL Normal 0.00 - 0.70 [facility] Comment on above: Performed By: #### C BCDF #### [address] [address] Eosinophils/100 WBC (Bld) 0.8 % Normal 0.0 - 6.0 [facility] Comment on above: Performed By: #### C BCDF #### [address] [address] Erythrocyte distribution width (RBC) [Ratio] 15.4 % High 11.5 - 14.5 [facility] Comment on above: Performed By: #### C BCDF #### [address] [address] Hematocrit (Bld) [Volume fraction] 42.2 % Normal 36.0 - 46.0 [facility] Comment on above: Performed By: #### C BCDF #### [address] [address] Hemoglobin (Bld) [Mass/Vol] 12.9 g/dL Normal 12.0 - 16.0 [facility] Comment on above: Performed By: #### C BCDF #### [address] [address] Lymphocytes (Bld) [#/Vol] 2.80 10*3/uL Normal 1.20 - 4.80 [facility] Comment on above: Performed By: #### C BCDF #### [address] [address] Lymphocytes/100 WBC (Bld) 23.0 % Normal 13.0 - 44.0 [facility] Comment on above: Performed By: #### C BCDF #### [address] [address] MCHC (RBC) [Mass/Vol] 30.6 g/dL Low 32.0 - 36.0 [facility] Comment on above: Performed By: #### C BCDF #### [address] [address] MCV (RBC) [Entitic vol] 79 fL Low 80 - 100 [facility] Comment on above: Performed By: #### C BCDF #### [address] [address] Monocytes (Bld) [#/Vol] 0.51 10*3/uL Normal 0.10 - 1.00 [facility] Comment on above: Performed By: #### C BCDF #### [address] [address] Monocytes/100 WBC (Bld) 4.2 % Normal 2.0 - 10.0 [facility] Comment on above: Performed By: #### C BCDF #### [address] [address] Neutrophils (Bld) [#/Vol] 8.67 10*3/uL High 1.20 - 7.70 [facility] Comment on above: Result Comment: Perc ent differential counts (%) should be interpreted in the context of the absolute cell counts (cells/L). Performed By: #### C BCDF #### [address] [address] Neutrophils/100 WBC (Bld) 71.3 % Normal 40.0 - 80.0 [facility] Comment on above: Performed By: #### C BCDF #### [address] [address] Platelets (Bld) [#/Vol] 317 10*3/uL Normal 150 - 450 [facility] Comment on above: Performed By: #### C BCDF #### [address] [address] RBC 5.32 x10E12/L High 4.00 - 5.20 [facility] Comment on above: Performed By: #### C BCDF #### [address] [address] WBC (Bld) [#/Vol] 12.2 10*3/uL High 4.4 - 11.3 [facility] Comment on above: Performed By: #### C BCDF #### [address] [address] COMPREHENSIVE PANELon 2022 Albumin [Mass/Vol] 3.8 g/dL Normal 3.4 - 5.0 [facility] Comment on above: Performed By: #### C MP #### [address] [address] ALP [Catalytic activity/Vol] 91 U/L Normal 33 - 110 [facility] Comment on above: Performed By: #### C MP #### [address] [address] ALT [Catalytic activity/Vol] 5 U/L Low 7 - 45 [facility] Comment on above: Result Comment: Marni ents treated with Sulfasalazine may generate falsely decreased results for ALT. Performed By: #### C MP #### [address] [address] Anion gap [Moles/Vol] 11 mmol/L Normal 10 - 20 [facility] Comment on above: Performed By: #### C MP #### [address] [address] AST [Catalytic activity/Vol] 9 U/L Normal 9 - 39 [facility] Comment on above: Performed By: #### C MP #### [address] [address] Bilirubin [Mass/Vol] 0.2 mg/dL Normal 0.0 - 1.2 [facility] Comment on above: Performed By: #### C MP #### [address] [address] Calcium [Mass/Vol] 9.1 mg/dL Normal 8.6 - 10.3 [facility] Comment on above: Performed By: #### C MP #### [address] [address] Chloride [Moles/Vol] 102 mmol/L Normal 98 - 107 [facility] Comment on above: Performed By: #### C MP #### [address] [address] Creatinine [Mass/Vol] 0.68 mg/dL Normal 0.50 - 1.05 [facility] Comment on above: Performed By: #### C MP #### [address] [address] eGFR FEMALE >90 Normal >90 [facility] Comment on above: Result Comment: CALC ULATIONS OF ESTIMATED GFR ARE PERFORMED USING THE 2020 CKD-EPI STUDY REFIT EQUATION WITHOUT THE RACE VARIABLE FOR THE IDMS-TRACEABLE CREATININE METHODS. https://jasn.asnjournals.org/content/early//ASN.08626 [address] Performed By: #### C MP #### [address] [address] Glucose [Mass/Vol] 180 mg/dL High 74 - 99 [facility] Comment on above: Performed By: #### C MP #### [address] [address] HCO3 (Bld) [Moles/Vol] 26 mmol/L Normal 21 - 32 [facility] Comment on above: Performed By: #### C MP #### [address] [address] Potassium [Moles/Vol] 3.1 mmol/L Low 3.5 - 5.3 [facility] Comment on above: Performed By: #### C MP #### [address] [address] Protein [Mass/Vol] 6.8 g/dL Normal 6.4 - 8.2 [facility] Comment on above: Performed By: #### C MP #### [address] [address] Sodium [Moles/Vol] 136 mmol/L Normal 136 - 145 [facility] Comment on above: Performed By: #### C MP #### [id number] Urea nitrogen [Mass/Vol] 6 mg/dL Normal 6 - 23 [facility] Comment on above: Performed By: #### C MP #### [id number] DRUG SCREEN,URINEon 11-28-19 23 AMPHETAMINE SCREEN,U Negative Normal NEGATIVE [facility] Comment on above: Result Comment: CUTO FF LEVEL: 500 NG/ML Cross-reactivity has been reported with high concentrations of the following drugs: buproprion, chloroquine, chlorpromazine, ephedrine, mephentermine, fenfluramine, phentermine, phenylpropanolamine, pseudoephedrine, and propranolol. Performed By: #### D RUG3 #### [id number] BARBITURATES SCREEN,U Negative Normal NEGATIVE [facility] Comment on above: Result Comment: CUTO FF LEVEL: 200 NG/ML Performed By: #### D RUG3 #### [address] [address] BENZODIAZEPINES SCREEN,U Negative Normal NEGATIVE [facility] Comment on above: Result Comment: CUTO FF LEVEL: 200 NG/ML Performed By: #### D RUG3 #### [id number] CANNABINOIDS SCREEN,U Positive Abnormal NEGATIVE [facility] Comment on above: Result Comment: CUTO FF LEVEL: 50 NG/ML Performed By: #### D RUG3 #### [place] [address] COCAINE METABOLITE SCREEN,U Negative Normal NEGATIVE [facility] Comment on above: Result Comment: CUTO FF LEVEL: 150 NG/ML Performed By: #### D RUG3 #### [place] [address] DRUG SCREEN COMMENT SEE BELOW Normal [facility] Comment on above: Result Comment: Drug screen [...] directors. Performed By: #### D RUG3 #### [place] [address] FENTANYL SCREEN,URINE Negative Normal NEGATIVE [facility] Comment on above: Result Comment: CUTO FF LEVEL: 5 NG/ML Performed By: #### D RUG3 #### [place] [address] METHADONE SCREEN,U Negative Normal NEGATIVE [facility] Comment on above: Result Comment: CUTO FF LEVEL: 150 NG/ML The metabolite E-muujr-iiqjbigvnxtysn (LAAM) is not detected by this method in concentrations that would be found in the urine of patients on LAAM therapy. Performed By: #### D RUG3 #### [id number] OPIATES SCREEN,U Negative Normal NEGATIVE [facility] Comment on above: Result Comment: CUTO FF LEVEL: 300 NG/ML The opiate screen does not detect fentanyl, meperidine, or tramadol. Oxycodone is not consistently detected (refer to Oxycodone Screen, Urine result). Performed By: #### D RUG3 #### [place] [address] OXYCODONE SCREEN,U Negative Normal NEGATIVE [facility] Comment on above: Result Comment: CUTO FF LEVEL: 100 NG/ML This test will accurately detect both oxycodone and oxymorphone. Performed By: #### D RUG3 #### [place] [address] PCP SCREEN,U Negative Normal NEGATIVE [facility] Comment on above: Result Comment: CUTO FF LEVEL: 25 NG/ML Cross-reactivity has been reported with dextromethorphan. Performed By: #### D RUG3 #### [place] [address] HCG,BETA-QUANTITATIVEon 07-0 HCG,BETA-QUANTITATIVE <2 Normal [facility] Comment on above: Result Comment: . Total HCG measurement is performed using the [employer] Access Immunoassay which detects intact HCG and free beta HCG subunit. . This test is not indicated for use as a tumor marker. HCG testing is performed using a different test methodology at [facility] than other [facility]. Direct result comparison should only be made within the same method. REF VALUES NON FEMALE <5 MALES <5 Performed By: #### H CGQU #### [place] [address] Provider Note - ED v3on 07-0 Provider Note - ED v3 Provider Note: Results/Vital Signs: Pediatric Clinical Scoring (KAROLINE) is no recent KAROLINE charted on this account Chart Review: ED NOTES ED NOTES: Source of Information: Patient. Patient's sister. EMR was reviewed for previous records. ---- ---- HPI: Anxiety. This 27-year-old white female with [...] to previous psychiatric hospitalizations for her anxiety. ---- ---- PMH: Anxiety, depression, social anxiety, PTSD, chronic pain PSH: x3, T&A, bilateral tube ligation, cholecystectomy, ear tympanostomy tubes x3 Social Hx: The patient denies any use of tobacco, alcohol or illicit drugs. Fam: MEDS: [id number] Tylenol ALLERGIES: PCN ---- ---- PHYSICAL EXAM: General: Patient alert, awake, oriented [...] not maintains eye contact. Flat affect. Cooperative. ---- ---- ED course: After my assessment of the [...] location that will accept her for admission. [facility] excepted the patient. I have filled out transfer paperwork with the patient and the patient will be transferred later this morning around 6:30 AM with planned admission at 7 AM. This chart was dictated with the use of Drill Map software within the framework of the current [...] The patient wants to be admitted to [facility] where she has been before - is [facility]. resident)(1). Triage Information: Most recent Vital [...] day) Alcohol Use: occasionally Drug Use: occasionally (Marijuana),ALLERGI ES/INTOLERANCES: Allergy Allergen: penicillins Type: Drug Category Reaction: Unknown HEALTH HISTORY: No documented data. OUTPATIENT MEDICATIONS: Home Medications Review Status for Reconciliation: N/A Med Status: (more content not included)... Normal [facility] SALICYLATEon 11-27-2022 SALICYLATE <3 Normal 4 - 20 [facility] Comment on above: Performed By: #### S [facility] #### [place] [address] Triage - EDon 11-27-2022 Triage - ED Quick Triage: Are You no Have You Given In The Last 6 Weeksno Are You Currently Breastfeedingno The patient and/or guardian verbally acknowledges placement for services into the following (when Urgent Care Service hours are operating):emergenc y department Chart Review: ARRIVAL INFORMATION Mode of Arrival: private vehicle CHIEF COMPLAINT MITZI LAWLER is a Female patient with a chief complaint of psychiatric evaluation (Patient denies SI/HI, sister states she has made vague statements of self harm to her. The patient wants to be admitted to [facility] where she has been before - is [facility] resident). Triage Date/Time: 26-Nov-2022 23:04 JOSE: 2 Pain Rating (0-10): 0 = None Vital Signs: Temperature: 97.1F ( 36.2C) Blood Pressure: 124/83 Mean: Heart Rate: 84 Respiratory Rate: 15 Pulse Oximetry: 97% Height: 5 feet 2.00 inches. 157.4 CM Weight: 240.3 pounds. Calculated 109.0 kg. Calculated BMI (kg/m2): 43.996 Calculated BSA (m2) 2.18 Lang Coma Scale: Best Eye Response: (E4) spontaneous [...] patient cognitively impaired not cognitively impaired Interventions: Ankit Fall Interventions: LOW INTERVENTIONS: *patient oriented to [...] 26-Nov-2022 23:38 by Hai Davis (HALI) Normal [facility] URINALYSIS WITH CULTURE IF I NDICATEDon 11-27-2022 Appearance (U) HAZY Normal CLEAR [facility] Comment on above: Performed By: #### U ARFX #### [place] [address] Bilirubin Ql (U) Negative Normal NEGATIVE [facility] Comment on above: Performed By: #### U ARFX #### [place] [address] Color (U) Yellow Normal STRAW,YELLOW [facility] Comment on above: Performed By: #### U ARFX #### [place] [address] Glucose Ql (U) Negative Normal NEGATIVE [facility] Comment on above: Performed By: #### U ARFX #### [address] [address] Hemoglobin Ql (U) Negative Normal NEGATIVE [facility] Comment on above: Performed By: #### U ARFX #### [place] [address] Ketones Ql (U) Negative Normal NEGATIVE [facility] Comment on above: Performed By: #### U ARFX #### [place] [address] Leukocyte esterase Test strip Ql (U) Negative Normal NEGATIVE [facility] Comment on above: Performed By: #### U ARFX #### [address] [address] Nitrite Ql (U) Negative Normal NEGATIVE [facility] Comment on above: Performed By: #### U ARFX #### [address] [address] pH (U) 5.0 [pH] Normal 5.0 - 8.0 [facility] Comment on above: Performed By: #### U ARFX #### [address] [address] Protein Ql (U) Negative Normal NEGATIVE [facility] Comment on above: Performed By: #### U ARFX #### [address] [address] Specific gravity (U) [Rel density] 1.018 Normal 1.005 - 1.035 [facility] Comment on above: Performed By: #### U ARFX #### [address] [address] Urobilinogen (U) [Mass/Vol] mg/dL Normal 0.0 - 1.9 [facility] Comment on above: Performed By: #### U ARFX #### [address] [address] COVID-19, MOLECULARon 2021 SARS-CoV-2 (COVID-19) RNA VERONICA+probe Ql (Unsp spec) Not detected Normal Not Detected [facility] Comment on above: Order Comment: This test [...] at the following links: For Healthcare Providers: https://www.fda.gov/media/423882/download For Patients: https://www.fda.gov/media/799061/download Performed By: #### L [id number] #### C LAB [address] [place], [place] [address] Zane Lynch M.D. [id number] US OB FOLLOW UP TRANSABDOMIN AL SINGLE FETUSon 08-24-2021 US OB FOLLOW UP TRANSABDOMINAL SINGLE FETUS Today: Growth AUA =35w3d PATIENCE by US = 09/25/2021 FHR: 150 bpm Presentation: Cephalic EFW:2719 g or 6lb 0oz 33% MARLENE: 11.40 cm Placenta: Posterior Movement: observed No gross anomalies visualized. Standard limitations of ultrasound apply. Epic Radiant Analyst: Lauren Moyer RDMS Attending Note I have reviewed the images and agree with the above assessment. Impression/Recommen dation: Images reviewed. Agree with report as written. Results communicated during visit. Awais Steinberg MD Attending Physician [facility] Obstetrics [facility] Gynecology Dictated by: AWAIS STEINBERG on SunAug 24, 2021 11:17:17 AM EDT Transcribed by: AWAIS STEINBERG on SunAug 24, 2021 11:17:17 AM EDT Finalized by: AWAIS STEINBERG on SunAug 24, 2021 11:17:17 AM EDT Normal [facility] Comment on above: Order Comment: This back office order was created through the Ultrasound Visit Navigator section. Today: Growth AUA =35w3d PATIENCE by US = 09/25/2021 FHR: 150 bpm Presentation: Cephalic EFW:2719 g or 6lb 0oz 33% MARLENE: 11.40 cm Placenta: Posterior Movement: observed No gross anomalies visualized. Standard limitations of ultrasound apply. Epic Radiant Analyst: Lauren Moyer RDMS Attending Note I have reviewed the images and agree with the above assessment. Impression/Recommen dation: Images reviewed. Agree with report as written. Results communicated during visit. Awais Steinberg MD Attending Physician [facility] Obstetrics and Gynecology [facility] Radiology Study observation (narrative) [facility] OB FOLLOW UP TRANSABDOMIN AL SINGLE FETUSon 07-25-2021 Today: Growth AUA =32w1d PATIENCE by US = 09/18/21 FHR: 126 bpm Presentation: BREECH EFW:1903 g or 4lb 3oz 42% MARLENE: 16.28 cm Placenta: Posterior fundal Movement: observed No gross anomalies visualized. Standard limitations of ultrasound apply. 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 EFW 42%ile, MARLENE wnl. Breech presentation. Recommend follow up scan at 36 weeks to reassess growth and position. Danni Tamez DO Obstetrics and Gynecology GE RIS [facility] Radiology Study observation (narrative) [facility] US OB FOLLOW UP TRANSABDOMINAL SINGLE FETUS Today: Growth AUA =32w1d PATIENCE by US = 09/18/21 FHR: 126 bpm Presentation: BREECH EFW:1903 g or 4lb 3oz 42% MARLENE: 16.28 cm Placenta: Posterior fundal Movement: observed No gross anomalies visualized. Standard limitations of ultrasound apply. 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 EFW 42%ile, MARLENE wnl. Breech presentation. Recommend follow up scan at 36 weeks to reassess growth and position. Danni Tamez DO Obstetrics and Gynecology Dictated by: DANNI TAMEZ on SunJul 25, 2021 2:44:43 PM EST Transcribed by: DANNI TAMEZ on SunJul 25, 2021 2:44:43 PM EST Finalized by: DANNI TAMEZ on SunJul 25, 2021 2:44:43 PM EST Normal [facility] Comment on above: Order Comment: This back office order was created through the Ultrasound Visit Navigator section. SARS-CoV-2 (COVID-19) RNA NA A+probe Ql (Resp)Ordered By: Tevin Bains on 05-20-2021 Interpretation and review of laboratory results Abnormal [facility] SARS-CoV-2 (COVID-19) RdRp gene VERONICA+probe Ql (Resp) Detected Abnormal Not Detected [facility] SARS-CoV-2 RNA Resp Ql VERONICA+p robeon 05-20-2021 SARS-CoV-2 (COVID-19) RNA VERONICA+probe Ql (Resp) Detected Invalid Interpretation Code Not Detected [facility] Comment on above: Performed By: #### 9 4500-6 #### [facility] [address] [place] [address] N. gonorrhoeae DNA VERONICA+probe Ql (U)on 04-25-2021 Trichomonas vaginosis Negative Normal Negative [facility] Comment on above: Performed By: #### 2 1416-3 #### [facility] [address] [place] [address] Laboratory - Specimen inform ationon 04-24-2021 Specimen source Nom (Unsp spec) Hold for add-ons. [facility] Comment on above: Auto resulted. No Panel Informationon 04-24 [facility] Nuclear IgG IA Ql (S)on 03-29 Bilirubin, Urine Negative Normal Negative [facility] [place] Comment on above: Performed By: #### 2 9950-3 #### [facility] [address] [place] [address] Blood, Urine Negative Normal Negative [facility] Comment on above: Performed By: #### 2 9950-3 #### [facility] [address] [place] [address] Clarity (U) Clear Normal Clear [facility] Comment on above: Performed By: #### 2 9950-3 #### [facility] [address] [place] [address] Color (U) Yellow Normal Yellow [facility] Comment on above: Performed By: #### 2 9950-3 #### [facility] [address] [place] [address] Glucose Ql (U) Normal Normal Normal [facility] Comment on above: Performed By: #### 2 9950-3 #### [facility] [address] [place] [address] Ketones Ql (U) Negative Normal Negative [facility] Comment on above: Performed By: #### 2 9950-3 #### [facility] [address] [place] [address] Leukocytes, Urine Negative Normal Negative [facility] Comment on above: Performed By: #### 2 9950-3 #### [facility] [address] [place] [address] Nitrite, Urine Negative Normal Negative [facility] Comment on above: Performed By: #### 2 9950-3 #### [facility] [address] [place] [address] pH (U) 6.0 [pH] Normal 5.0-8.0 [facility] Comment on above: Performed By: #### 2 9950-3 #### [facility] [address] [place] [address] Protein, Urine Negative Normal Negative [facility] Comment on above: Performed By: #### 2 9950-3 #### [facility] [address] [place] [address] Specific [place] Urine 1.017 Normal 1.002-1.030 [facility] Comment on above: Performed By: #### 2 9950-3 #### [facility] [address] [place] [address] Urobilinogen, Urine Normal Normal Normal [facility] Comment on above: Performed By: #### 2 9950-3 #### [facility] [address] [place] [address] Bilirubin Ql (U) Negative Negative mg/dL [facility] Clarity (U) Clear Clear [facility] Color (U) Yellow Yellow [facility] Glucose Ql (U) Normal Normal mg/dL [facility] Hemoglobin Ql (U) Negative Negative [facility] Interpretation and review of laboratory results Normal [facility] Ketones (U) [Mass/Vol] Negative Negat miles mg/dL [facility] Leukocyte esterase Test strip Ql (U) Negative Negative WBCs/mcL [facility] Nitrite Ql (U) Negative Negative [facility] pH (U) 6.0 [pH] 5.0 - 8.0 [facility] Protein (U) [Mass/Vol] Negative Negat miles mg/dL [facility] Specific gravity (U) [Rel density] 1.017 [facility] Urobilinogen (U) [Mass/Vol] Normal Normal mg/dL [facility] XR Chest PA and Lateralon IMPRESSION: No acute radiographic abnormality. Light Equipment Operator: MERLY Transcribe Date/Time: Nov 09 2020 12:14P Dictated by : MORIAH MONTES DE OCA MD This examination was interpreted and the report reviewed and electronically signed by: MORIAH MONTES DE OCA MD on Nov 09 2020 12:16PM [facility] DIVISION OF RADIOLOGY * * *Final Report* [...] acute osseous abnormality. DIVISION OF RADIOLOGY Provider, [facility] [place] - 11/09/2020 * * *Final Report* * [...] abnormality. IMPRESSION IMPRESSION: No acute radiographic abnormality. Light Equipment Operator: MERLY Transcribe Date/Time: Nov 09 2020 12:14P Dictated by : MORIAH MONTES DE OCA MD This examination was interpreted and the report reviewed and electronically signed by: MORIAH MONTES DE OCA MD on Nov 09 2020 12:16PM [facility] Radiology Study observation (narrative) [facility] XR Chest PA and LateralOrder ed By: Ccmiranda Provider on 11-09-2020 [facility] CR Shoulder 2+ Views Righton 01-07-2020 CR Shoulder 2+ Views Right Patient Name: MITZI LAWLER Diagnostic Radiology Exam Date/Time 01/07/2020 20:51:16 EDT Exam CR Shoulder 2+ Views Right Ordering Physician RADHA PEÑA, DEANNE Accession Number [id number] CPT4 Codes 69661 () Reason For Exam pain Report RIGHT [...] Transcribed Date and Time: 01/07/2020 9:20 Normal [facility] ED Provider Noteon 0 ED Provider Note [facility] ED eMERGENCY dEPARTMENT eNCOUnter Pt Name: Mitzi Lawler Birthdate 1995 Date of evaluation: 01/07/2020 Provider: Deanne Peña, LANDSCAPING CREW LEADER - ADOLESCENT MEDICINE SPECIALIST This patient was evaluated within my scope of practice with an attending physician available in the department CHIEF COMPLAINT Chief Complaint Patient presents with ? Shoulder Pain right HISTORY OF PRESENT ILLNESS (Location/Symptom, Timing/Onset,Contex t/Setting, Quality, Duration, Modifying Factors, Severity) Note limiting [...] pain Skin: Negative for pallor and rash. Allergic/Immunologi c: Negative for environmental allergies. Neurological: Negative for dizziness, light-headedness and headaches. Hematological: Does not bruise/bleed easily. Psychiatric/Behavio ral: Negative for confusion and sleep disturbance. This [...] file Gets together: Not on file Attends faith service: Not on file Active member of [...] more for level 5) ED Triage Vitals [01/07/202016] BP Temp Temp Source Pulse Resp SpO2 Height Weight 120/86 97.3 ?F (36.3 ?C) Temporal 74 16 98 % -- -- Physical Exam Vitals signs and nursing note (more content not included)... Normal [facility] XR Shoulder Right 2 VWon Patient Name: MITZI LAWLER ---Diagnostic Radiology--- Exam Date/Time 01/07/2020 20:51:16 EDT Exam CR Shoulder 2+ Views Right Ordering Physician RADHA PEÑA LAURA Accession Number [id number] CPT4 Codes 32589 () Reason For Exam pain Report RIGHT [...] WENDELL Transcribed Date and Time: 01/07/2020 9:20 [place], [place] [facility] Incoming Radiology Results From [facility] - 01/07/2020 9:21 PM EDT Patient Name: MITZI LAWLER ---Diagnostic Radiology--- Exam Date/Time 01/07/2020 20:51:16 EDT Exam CR Shoulder 2+ Views Right Ordering Physician RADHA PEÑA LAURA Accession Number [id number] CPT4 Codes 40665 () Reason For Exam pain Report RIGHT [...] WENDELL Transcribed Date and Time: 01/07/2020 9:20 [place] Vital Signs Date Time Vital Sign Value Performing Clinician Facility 12-10-2024 13:03-0400 Body height 157.48 cm No Primary Care Physician [facility] 12-10-2024 13:03-0400 Body mass index (BMI) [Ratio] 35.7 kg/m2 No Primary Care Physician [facility] 12-10-2024 13:03-0400 Body temperature 98.6 [degF] No Primary Care Physician [facility] 12-10-2024 13:03-0400 Body weight 88.67 kg No Primary Care Physician [facility] 12-10-2024 13:03-0400 Diastolic blood pressure 85 mm[Hg] No Primary Care Physician [facility] 12-10-2024 13:03-0400 Heart rate 81 /min No Primary Care Physician [facility] 12-10-2024 13:03-0400 Respiratory rate 18 /min No Primary Care Physician [facility] 12-10-2024 13:03-0400 SaO2% (BldA) [Mass fraction] 100 % No Primary Care Physician [facility] 12-10-2024 13:03-0400 Systolic blood pressure 138 mm[Hg] No Primary Care Physician [facility] 05-02-2024 20:08-0500 Body height 157.5 cm ISMA CONTRERAS MD [facility] 05-02-2024 20:08-0500 Body temperature 98.42 [degF] ISMA CONTRERAS MD [facility] 05-02-2024 20:08-0500 Body weight 94 kg ISMA CONTRERAS MD [facility] 05-02-2024 20:08-0500 Diastolic Blood Pressure Non-Invasive 91 mm[Hg] ISMA CONTRERAS MD [facility] 05-02-2024 20:08-0500 Heart rate 78 /min ISMA CONTRERAS MD [facility] 05-02-2024 20:08-0500 Respiratory rate 16 /min ISMA CONTRERAS MD [facility] 05-02-2024 20:08-0500 Systolic Blood Pressure Non-Invasive 125 mm[Hg] ISMA CONTRERAS MD [facility] 06-15-2023 04:56-0500 Diastolic blood pressure 55 mm[Hg] [facility] 06-15-2023 04:56-0500 Heart rate 78 /min [facility] 06-15-2023 04:56-0500 Respiratory rate 16 /min [facility] 06-15-2023 04:56-0500 SaO2% (BldA) [Mass fraction] 98 % [facility] 06-15-2023 04:56-0500 Systolic blood pressure 109 mm[Hg] [facility] 06-15-2023 01:49-0500 Body height 157.48 cm [facility] 06-15-2023 01:49-0500 Body mass index (BMI) [Ratio] 41.3 kg/m2 [facility] 06-15-2023 01:49-0500 Body temperature 97.3 [degF] [facility] 06-15-2023 01:49-0500 Body weight 102.4 kg [facility] 01-09-2023 15:45-0400 Body temperature 97.9 [degF] [facility] LANDSCAPING CREW LEADER.ADOLESCENT MEDICINE SPECIALIST Work Phone: [facility] 01-09-2023 15:45-0400 Body weight 96.16 kg [facility] LANDSCAPING CREW LEADER.ADOLESCENT MEDICINE SPECIALIST Work Phone: [facility] 01-09-2023 15:45-0400 Diastolic blood pressure 68 mm[Hg] [facility] LANDSCAPING CREW LEADER.ADOLESCENT MEDICINE SPECIALIST Work Phone: [facility] 01-09-2023 15:45-0400 Heart rate 64 /min [facility] LANDSCAPING CREW LEADER.ADOLESCENT MEDICINE SPECIALIST Work Phone: [facility] 01-09-2023 15:45-0400 Respiratory rate 16 /min [facility] LANDSCAPING CREW LEADER.ADOLESCENT MEDICINE SPECIALIST Work Phone: [facility] 01-09-2023 15:45-0400 SaO2% (BldA) [Mass fraction] 98 % [facility] LANDSCAPING CREW LEADER.ADOLESCENT MEDICINE SPECIALIST Work Phone: [facility] 01-09-2023 15:45-0400 Systolic blood pressure 116 mm[Hg] [facility] LANDSCAPING CREW LEADER.ADOLESCENT MEDICINE SPECIALIST Work Phone: [facility] 11-27-2022 03:00-0400 Diastolic blood pressure 79 mm[Hg] No Pcp Required [facility] 11-27-2022 03:00-0400 Heart rate 80 /min No Pcp Required [facility] 11-27-2022 03:00-0400 Respiratory rate 14 /min No Pcp Required [facility] 11-27-2022 03:00-0400 SaO2% (BldA) [Mass fraction] 98 % No Pcp Required [facility] 11-27-2022 03:00-0400 Systolic blood pressure 109 mm[Hg] No Pcp Required [facility] 05-09-2022 19:45-0500 Body height 156.84 cm Clementina Carrillo Other [facility] 05-09-2022 19:45-0500 Body height 157 cm Clementina Carrillo Other [facility] 05-09-2022 19:45-0500 Body mass index (BMI) [Ratio] 42.4 kg/m2 Clementina Carrillo Other [facility] 05-09-2022 19:45-0500 Body temperature 97.3 [degF] Clementina Carrillo Other [facility] 05-09-2022 19:45-0500 Body weight 104.33 kg Clementina Carrillo Other [facility] 05-09-2022 19:45-0500 Body weight 104 kg Clementina Carrillo Other [facility] 05-09-2022 19:45-0500 Heart rate 82 /min Clementina Carrillo Other [facility] 04-11-2022 18:02-0500 Body height 157.48 cm Clementina Carrillo Other [facility] 04-11-2022 18:02-0500 Body height 157 cm Clementina Carrillo Other [facility] 04-11-2022 18:02-0500 Body mass index (BMI) [Ratio] 43.2 kg/m2 Clemetnina Carrillo Other [facility] 04-11-2022 18:02-0500 Body temperature 97.8 [degF] Clementina Carrillo Other [facility] 04-11-2022 18:02-0500 Body weight 107.05 kg Clementina Carrillo Other [facility] 04-11-2022 18:02-0500 Body weight 107 kg Clementina Carrillo Other [facility] 04-11-2022 18:02-0500 Heart rate 79 /min Clementina Carrillo Other [facility] 04-11-2022 17:17-0500 Body height 157.48 cm Clementina [...] Body weight 101 kg Clementina Carrillo Other [facility] 11-22-2021 21:24-0400 Heart rate 88 /min Clementina Carrillo Other [facility] 10-26-2021 20:15-0400 SaO2% (BldA) [Mass fraction] 98 % [facility] Work Phone: 10-26-2021 20:06-0400 Body height 157.48 cm [facility] Work Phone: 10-26-2021 20:06-0400 Body mass index (BMI) [Ratio] 41.3 kg/m2 [facility] Work Phone: 10-26-2021 20:06-0400 Body temperature 96.7 [degF] [facility] Work Phone: 10-26-2021 20:06-0400 Body weight 102.6 kg [facility] Work Phone: 10-26-2021 20:06-0400 Diastolic blood pressure 97 mm[Hg] [facility] Work Phone: 10-26-2021 20:06-0400 Heart rate 95 /min [facility] Work Phone: 10-26-2021 20:06-0400 Respiratory rate 18 /min [facility] Work Phone: 10-26-2021 20:06-0400 Systolic blood pressure 137 mm[Hg] [facility] Work Phone: 10-04-2021 11:12-0400 Body mass index (BMI) [Ratio] 39.32 kg/m2 Danni Guidoo [employer] Work Phone: [facility] 10-04-2021 11:12-0400 Body temperature 97.9 [degF] Danni Guidoo Work Phone: [facility] 10-04-2021 11:12-0400 Body weight 97.52 kg Danni Busuito DO Work Phone: [facility] 10-04-2021 11:12-0400 Diastolic blood pressure 77 mm[Hg] Danni Busuito DO Work Phone: [facility] 10-04-2021 11:12-0400 Heart rate 72 /min Danni Busuito DO Work Phone: [facility] 10-04-2021 11:12-0400 Respiratory rate 16 /min Danni Busuito DO Work Phone: [facility] 10-04-2021 11:12-0400 SaO2% (BldA) [Mass fraction] 97 % Danni Busuito DO Work Phone: [facility] 10-04-2021 11:12-0400 Systolic blood pressure 113 mm[Hg] Danni Busuito DO Work Phone: [facility] 09-06-2021 13:38-0400 Body mass index (BMI) [Ratio] 42.43 kg/m2 Danni Busuito DO Work Phone: [facility] 09-06-2021 13:38-0400 Body temperature 98.29 [degF] Danni Busuito DO Work Phone: [facility] 09-06-2021 13:38-0400 Body weight 105.23 kg Dnani Busuito DO Work Phone: [facility] 09-06-2021 13:38-0400 Diastolic blood pressure 69 mm[Hg] Danni Busuito DO Work Phone: [facility] 09-06-2021 13:38-0400 Heart rate 77 /min Danni Busuito DO Work Phone: [facility] 09-06-2021 13:38-0400 Respiratory rate 18 /min Danni Busuito DO Work Phone: [facility] 09-06-2021 13:38-0400 SaO2% (BldA) [Mass fraction] 97 % Danni Guidoo Work Phone: [facility] 09-06-2021 13:38-0400 Systolic blood pressure 105 mm[Hg] Danni Guidoo Work Phone: [facility] 08-30-2021 13:20-0400 Body mass index (BMI) [Ratio] 42.8 kg/m2 Tamie Ayala CNM Work Phone: [facility] 08-30-2021 13:20-0400 Body temperature 97.9 [degF] Tamie Ayala CNM Work Phone: [facility] 08-30-2021 13:20-0400 Body weight 106.14 kg Tamie Ayala CNM Work Phone: [facility] 08-30-2021 13:20-0400 Diastolic blood pressure 77 mm[Hg] Tamie Ayala CNM Work Phone: [facility] 08-30-2021 13:20-0400 Heart rate 85 /min Tamie Ayala CNM Work Phone: [facility] 08-30-2021 13:20-0400 Respiratory rate 18 /min Tamie Ayala CNM Work Phone: [facility] 08-30-2021 13:20-0400 SaO2% (BldA) [Mass fraction] 98 % Tamie Ayala CNM Work Phone: [facility] 08-30-2021 13:20-0400 Systolic blood pressure 116 mm[Hg] Tamie Ayala CNM Work Phone: [facility] 08-24-2021 09:29-0400 Body height 157.5 cm Awais Steinberg MD Work Phone: [facility] 08-24-2021 09:29-0400 Body mass index (BMI) [Ratio] 42.25 kg/m2 Awais Steinberg MD Work Phone: [facility] 08-24-2021 09:29-0400 Body weight 104.78 kg Awais Steinberg MD Work Phone: [facility] 08-24-2021 09:29-0400 Diastolic blood pressure 71 mm[Hg] Awais Steinberg MD Work Phone: [facility] 08-24-2021 09:29-0400 Heart rate 87 /min Awais Steinberg MD Work Phone: [facility] 08-24-2021 09:29-0400 SaO2% (BldA) [Mass fraction] 97 % Awais Steinberg MD Work Phone: [facility] 08-24-2021 09:29-0400 Systolic blood pressure 105 mm[Hg] Awais Steinberg MD Work Phone: [facility] 08-17-2021 13:16-0400 Body height 157.5 cm Anna Sterling CNP Work Phone: [facility] 08-17-2021 13:16-0400 Body mass index (BMI) [Ratio] 41.96 kg/m2 Anna Sterling CNP Work Phone: [facility] 08-17-2021 13:16-0400 Body temperature 97.9 [degF] Anna Sterling CNP Work Phone: [facility] 08-17-2021 13:16-0400 Body weight 104.06 kg Anna Sterling CNP Work Phone: [facility] 08-17-2021 13:16-0400 Diastolic blood pressure 68 mm[Hg] Anna Sterling CNP Work Phone: [facility] 08-17-2021 13:16-0400 Heart rate 88 /min Anna Sterling CNP Work Phone: [facility] 08-17-2021 13:16-0400 SaO2% (BldA) [Mass fraction] 96 % Anna Sterling CNP Work Phone: [facility] 08-17-2021 13:16-0400 Systolic blood pressure 108 mm[Hg] Anna Sterling CNP Work Phone: [facility] 08-08-2021 14:17-0400 Body mass index (BMI) [Ratio] 41.7 kg/m2 Danni Busuito DO Work Phone: [facility] 08-08-2021 14:17-0400 Body temperature 98.4 [degF] Danni Busuito DO Work Phone: [facility] 08-08-2021 14:17-0400 Body weight 103.42 kg Danni Busuito DO Work Phone: [facility] 08-08-2021 14:17-0400 Diastolic blood pressure 75 mm[Hg] Danni Busuito DO Work Phone: [facility] 08-08-2021 14:17-0400 Heart rate 85 /min Danni Busuito DO Work Phone: [facility] 08-08-2021 14:17-0400 Respiratory rate 18 /min Danni Busuito DO Work Phone: [facility] 08-08-2021 14:17-0400 SaO2% (BldA) [Mass fraction] 97 % Danni Busuito DO Work Phone: [facility] 08-08-2021 14:17-0400 Systolic blood pressure 114 mm[Hg] Danni Busuito DO Work Phone: [facility] 07-25-2021 14:17-0500 Body mass index (BMI) [Ratio] 41.52 kg/m2 Danni Busuito DO Work Phone: [facility] 07-25-2021 14:17-0500 Body temperature 98.1 [degF] Danni Busuito DO Work Phone: [facility] 07-25-2021 14:17-0500 Body weight 102.97 kg Danni Busuito DO Work Phone: [facility] 07-25-2021 14:17-0500 Diastolic blood pressure 72 mm[Hg] Danni Busuito DO Work Phone: [facility] 07-25-2021 14:17-0500 Heart rate 91 /min Danni Busuito DO Work Phone: [facility] 07-25-2021 14:17-0500 Respiratory rate 16 /min Danni Busuito DO Work Phone: [facility] 07-25-2021 14:17-0500 SaO2% (BldA) [Mass fraction] 97 % Danni Busuito DO Work Phone: [facility] 07-25-2021 14:17-0500 Systolic blood pressure 108 mm[Hg] Danni Busuito DO Work Phone: [facility] 07-05-2021 11:29-0500 Body mass index (BMI) [Ratio] 41.34 kg/m2 Danni Busuito DO Work Phone: [facility] 07-05-2021 11:29-0500 Body temperature 98.4 [degF] Danni Busuito DO Work Phone: [facility] 07-05-2021 11:29-0500 Body weight 102.51 kg Danni Busuito DO Work Phone: [facility] 07-05-2021 11:29-0500 Diastolic blood pressure 73 mm[Hg] Danni Busuito DO Work Phone: [facility] 07-05-2021 11:29-0500 Heart rate 99 /min Danni Busuito DO Work Phone: [facility] 07-05-2021 11:29-0500 Respiratory rate 16 /min Danni Busuito DO Work Phone: [facility] 07-05-2021 11:29-0500 SaO2% (BldA) [Mass fraction] 94 % Danni Busuito DO Work Phone: [facility] 07-05-2021 11:29-0500 Systolic blood pressure 107 mm[Hg] Danni Busuito DO Work Phone: [facility] 05-20-2021 14:59-0500 Body temperature 97.9 [degF] No Physician [facility] 05-20-2021 14:59-0500 Diastolic blood pressure 66 mm[Hg] No Physician [facility] 05-20-2021 14:59-0500 Heart rate 94 /min No Physician [facility] 05-20-2021 14:59-0500 Respiratory rate 17 /min No Physician [facility] 05-20-2021 14:59-0500 SaO2% (BldA) [Mass fraction] 96 % No Physician [facility] 05-20-2021 14:59-0500 Systolic blood pressure 97 mm[Hg] No Physician [facility] 05-20-2021 14:59-0500 Body height 157.5 cm No Physician [facility] 05-20-2021 14:59-0500 Body mass index (BMI) [Ratio] 42.3 kg/m2 No Physician [facility] 05-20-2021 14:59-0500 Body weight 104.9 kg No Physician [facility] 05-09-2021 10:29-0500 Body mass index (BMI) [Ratio] 41.88 kg/m2 Danni Busuito DO Work Phone: [facility] 05-09-2021 10:29-0500 Body temperature 98.49 [degF] Danni Busuito DO Work Phone: [facility] 05-09-2021 10:29-0500 Body weight 103.87 kg Danni Busuito DO Work Phone: [facility] 05-09-2021 10:29-0500 Diastolic blood pressure 70 mm[Hg] Danni Busuito DO Work Phone: [facility] 05-09-2021 10:29-0500 Heart rate 95 /min Danni Busuito DO Work Phone: [facility] 05-09-2021 10:29-0500 Respiratory rate 16 /min Danni Busuito DO Work Phone: [address]13-2021 10:29-0500 SaO2% (BldA) [Mass fraction] 97 % Danni Busuito DO Work Phone: [facility] 05-09-2021 10:29-0500 Systolic blood pressure 103 mm[Hg] Danni Busuito DO Work Phone: [facility] 04-24-2021 22:11-0500 Diastolic blood pressure 57 mm[Hg] Johanna Suh MD Work Phone: [facility] 04-24-2021 22:11-0500 Heart rate 81 /min Johanna Suh MD Work Phone: [facility] 04-24-2021 22:11-0500 Systolic blood pressure 97 mm[Hg] Johanna Suh MD Work Phone: [facility] 04-24-2021 22:07-0500 SaO2% (BldA) [Mass fraction] 97 % Johanna Suh MD Work Phone: [facility] 04-24-2021 21:51-0500 Body temperature 98.01 [degF] Johanna Suh MD Work Phone: [facility] 04-24-2021 21:51-0500 Respiratory rate 16 /min Johanna Suh MD Work Phone: [facility] 04-11-2021 10:17-0500 Body weight 109.05 kg Danni Busuito DO Work Phone: [facility] 04-11-2021 10:17-0500 Diastolic blood pressure 75 mm[Hg] Danni Busuito DO Work Phone: [facility] 04-11-2021 10:17-0500 Heart rate 82 /min Danni Busuito DO Work Phone: [facility] 04-11-2021 10:17-0500 SaO2% (BldA) [Mass fraction] 97 % Danni Busuito DO Work Phone: [facility] 04-11-2021 10:17-0500 Systolic blood pressure 110 mm[Hg] Danni Tamez DO Work Phone: [facility] 01-07-2020 20:17-0400 Body Temperature 97.3 [degF] [facility] [place] 01-07-2020 20:17-0400 BP Diastolic 86 mm[Hg] [facility] [place] [facility] [place] 01-07-2020 20:17-0400 BP Systolic 120 mm[Hg] [facility] [place] [facility] [place] 01-07-2020 20:17-0400 Pulse (Heart Rate) 74 /min [facility] [place] 01-07-2020 20:17-0400 Pulse Oximetry 98 % [facility] [place] 01-07-2020 20:17-0400 [facility]piratory [facility] 16 /[email or web address] [place] [place] Encounters Encounter Date Encounter Type Care Provider Facility Start: 12-10-2024 End: 12-10-2024 Emergency department patient visit No Primary Care Physician -Emergency Department Work Phone: Start: 05-02-2024 End: 05-02-2024 Emergency department patient visit ISMA CONTRERAS MD [facility] Start: 04-04-2024 End: 04-04-2024 ambulatory No Primary Care Physician Facility:[facility] Start: 03-19-2024 End: 03-19-2024 Emergency department patient visit Rock Calvin Facility:[facility] Start: 03-04-2024 End: 03-04-2024 Emergency department patient visit ISMA RECINOS [facility] Start: 11-26-2023 End: 11-26-2023 [facility] Start: 06-15-2023 End: 06-15-2023 Emergency department patient visit [facility]-Emergency Department Work Phone: Start: 06-04-2023 End: 06-04-2023 ambulatory JUAN R OSORIO Facility:[facility] Start: 03-19-2023 End: 03-20-2023 Emergency department patient visit JOSSELYN MITCHELL [facility] Start: 01-14-2023 ambulatory Radha Walsh [employer]W LEADER.ADOLESCENT MEDICINE SPECIALIST Work Phone: [facility] Comment on above: Results Start: 01-14-2023 E-mail encounter fro m caregiver Radha Walsh [employer]ANDSC[employer]ING CREW LEADER.ADOLESCENT MEDICINE SPECIALIST Work Phone: [facility] Start: 01-13-2023 Telephone encounter Yanick Kunal [employer]AND[employer]ING CREW LEADER.ADOLESCENT MEDICINE SPECIALIST Work Phone: [facility] Comment on above: Results Start: 01-09-2023 End: 01-09-2023 ambulatory JUAN R OSORIO Facility:[facility] Start: 01-09-2023 End: 01-09-2023 Office outpatient visit 25 minutes Juan R Szymanski [employer]AND[employer] CREW LEADER.ADOLESCENT MEDICINE SPECIALIST Work Phone: [facility] Comment on above: Burning with urinati on (Primary Dx) Start: 11-27-2022 End: 11-27-2022 Emergency department patient visit Jeff iWlks [facility] Emergency 17 Start: 02-10-2022 [facility] Start: 10-26-2021 End: 10-26-2021 Emergency department patient visit [facility]-Emergency Department Start: 10-26-2021 ambulatory TARIQ DIOR [facility] Start: 10-21-2021 Orders Only Danni Deonna Bu suito DO Work Phone: [facility] Physician [facility] Start: 10-17-2021 ambulatory PHYSICIAN NO [facility] Ambulatory Start: 10-04-2021 End: 10-04-2021 ambulatory DANNI DEONNA BUSUITO [facility] Ambulatory Start: 10-04-2021 End: 10-04-2021 Office outpatient visit 15 minutes Danni Deonna Busuito DO Work Phone: [facility] Physician [facility] Obstetrics and Gynecology Comment on above: S/P section (Primary Dx); S/P tubal ligation Start: 09-14-2021 Chart abstracting Tariq abraham MD Work Phone: [facility] Obstetrics and Gynecology Start: 09-14-2021 End: 09-16-2021 Evaluation and management of inpatient PHYSICIAN [facility] Start: 09-09-2021 End: 09-09-2021 ambulatory PHYSICIAN NO [facility] Start: 09-06-2021 End: 09-06-2021 ambulatory DANNI DEONNA BUSUITO [facility] Start: 09-06-2021 End: 09-06-2021 Office outpatient visit 15 minutes Danni Deonna Busuito DO Work Phone: [facility] Physician [facility] Obstetrics and Gynecology Comment on above: GA: 38w2d Start: 09-05-2021 Refill Danni Deonna Bu suito DO Work Phone: [facility] Physician [facility] Obstetrics and Gynecology Start: 08-30-2021 End: 08-30-2021 ambulatory PHYSICIAN NO [facility] Start: 08-30-2021 End: 08-30-2021 Office outpatient visit 15 minutes Tamie Ayala CNM Work Phone: [facility] Physician [facility] Obstetrics and Gynecology Comment on above: GA: 37w2d Start: 08-24-2021 End: 08-28-2021 ambulatory AWAIS STEINBERG [facility] Start: 08-24-2021 End: 08-24-2021 Office outpatient visit 15 minutes Awais Steinberg MD Work Phone: [facility] Physician [facility] Obstetrics and Gynecology Comment on above: GA: 36w3d Start: 08-19-2021 End: 11-23-2022 Unlisted evaluation and management service Clementina Carrillo Other [facility] Start: 08-18-2021 ambulatory DANNI DEONNA ABELINOUITO [facility] Ambulatory Start: 08-17-2021 End: 08-17-2021 ambulatory ANNA STERLING [facility] Start: 08-17-2021 End: 08-17-2021 Office outpatient visit 15 minutes Anna Sterling ADOLESCENT MEDICINE SPECIALIST Work Phone: [facility] Physician [facility] Obstetrics and Gynecology Comment on above: GA: 35w2d Start: 08-12-2021 Refill Elysia Kody BUILD TECHNICIAN [facility] Obstetrics and Gynecology Start: 08-09-2021 Orders Only Tariq salazar MD Work Phone: [facility] Obstetrics and Gynecology Comment on above: Scheduled Start: 08-08-2021 End: 08-08-2021 ambulatory DANNI DEONNA LATAO [facility] Start: 08-08-2021 End: 08-08-2021 Office outpatient visit 15 minutes Danni Deonna Busuito DO Work Phone: [facility] Physician [facility] Obstetrics and Gynecology Comment on above: GA: 34w0d Start: 07-25-2021 End: 07-29-2021 ambulatory DANNI DEONNA LATAO [facility] Start: 07-25-2021 End: 07-25-2021 Office outpatient visit 15 minutes Danni Deonna Busuito DO Work Phone: [facility] Physician [facility] Obstetrics and Gynecology Comment on above: GA: 32w0d Start: 07-22-2021 Orders Only Provider Not I n System [facility] Start: 07-22-2021 End: 07-23-2021 ambulatory PROVIDER NOT IN SYSTEM [facility] Start: 07-22-2021 End: 07-22-2021 ambulatory PHYSICIAN [facility] Start: 07-05-2021 End: 07-05-2021 ambulatory DANNI DEONNA LATAO [facility] Start: 07-05-2021 End: 07-05-2021 Office outpatient visit 25 minutes Danni Deonna Busuito DO Work Phone: [facility] Physician [facility] Obstetrics and Gynecology Comment on above: GA: 29w1d Start: 06-22-2021 ambulatory PHYSICIAN NO [facility] Start: 06-21-2021 End: 06-21-2021 ambulatory PHYSICIAN NO [facility] Start: 06-09-2021 Chart abstracting Danni Deonna Busuito DO Work Phone: [facility] Physician [facility] Obstetrics and Gynecology Start: 06-06-2021 End: 06-06-2021 ambulatory DANNI DEONNA LATAO [facility] Start: 05-22-2021 End: 05-22-2021 ambulatory PHYSICIAN NO [facility] Start: 05-20-2021 End: 05-20-2021 Emergency department patient visit NO PCP PHYSICIAN [facility] Start: 05-20-2021 End: 05-20-2021 Emergency department patient visit No Physician [facility] Emergency Room Comment on above: COVID-19 (Primary Dx ) Start: 05-20-2021 End: 05-20-2021 Evaluation and management of inpatient No Physician [facility] Start: 05-09-2021 End: 05-09-2021 ambulatory DANNI GUIDOO [facility] Start: 05-09-2021 End: 05-09-2021 Subsequent care visit Danni Guidoo DO Work Phone: [facility] Obstetrics and Gynecology Comment on above: GA: 21w0d Start: 05-04-2021 ambulatory DANNI TAMEZ [facility] Start: 04-28-2021 Chart abstracting Danni Guidoo DO Work Phone: [facility] Obstetrics and Gynecology Start: 04-26-2021 End: 04-26-2021 Documentation procedure Daniel Carroll CNM Work Phone: [employer] Start: 04-24-2021 End: 04-25-2021 ambulatory JOHANNA SUH [facility] Start: 04-24-2021 End: 04-24-2021 Evaluation and management of inpatient Johanna Suh MD Work Phone: [facility] Start: 04-24-2021 End: 04-24-2021 Subsequent hospital visit by physician Johanna Suh MD Work Phone: [facility] Start: 04-11-2021 End: 04-11-2021 ambulatory DANNI TAMEZ [facility] Start: 04-11-2021 End: 04-11-2021 Office outpatient new 30 minutes Danni Guidoo DO Work Phone: [facility] Physician [facility] Obstetrics and Gynecology Comment on above: GA: 17w0d Start: 11-09-2020 End: 11-09-2020 Subsequent hospital visit by physician Xr [facility] Darleen Work Phone: Radiology Comment on above: Cough [R05] Start: 06-24-2020 Patient requested procedure Juan R Szymanski [facility] Work Phone: [facility] Work Phone: Start: 01-07-2020 End: 01-07-2020 Emergency department patient visit [facility] Comment on above: Strain of right shou lder, initial encounter (Primary Dx); Current smoker Procedures Date Procedure Procedure Detail Performing Clinician Start: 03-04-2024 Urinalysis GRACIE MARTIN Milly Comment on above: Result Comment: CORRECTED REPORT URINALYSIS Performed By: #### [id number] #### [facility],[address] [place] [address] Start: 11-26-2023 Urinalysis GRACIE MARTIN Milly Comment on above: Result Comment: URIN ALYSIS Performed By: [id number] ####[facility],[address] [place] [address] Start: 06-15-2023 Computed tomography of abdomen and pelvis with intravenous contrast Start: 01-09-2023 Urnls dip stick/tabl et rgnt auto w/o microscopy Giovana Walters PA-C Work Phone: Start: 10-26-2021 Plain chest X-ray Start: 10-04-2021 H/O: tubal ligation S/P tubal [...] H/O: section History of C-s ection Danni Tamez DO Work Phone: Start: 11-09-2020 Radiologic exam ches t 2 views Bonnie Navarro APRN.ADOLESCENT MEDICINE SPECIALIST Work Phone: Start: 01-07-2020 Radex shoulder compl ete minimum 2 views Deanne Peña Work Phone: H/O: section History of C-sectio n Tamie Ayala [facility] Work Phone: H/O: section S/P sectio n Danni Tamez DO Work Phone: Plan of Treatment Date Care Activity Detail Author Start: 06-21-2031 Tetanus vaccination Tetanus: Every 1 0yrs [facility] Start: 06-21-2031 Urine microalbumin profile DTa P,Tdap,Td Vaccine (2 - Td or Tdap) [facility] Start: 12-10-2024 [facility] Start: 05-09-2024 Screening for malign ant neoplasm of cervix [facility] Start: 01-27-2024 Covid-19 Vaccine ( season) Covid-19 Vaccine ( season) [facility] Start: 01-27-2024 Influenza vaccination Influenza Vacc ine (#1) [facility] Start: 06-15-2023 [facility] Start: 01-26-2023 Influenza vaccination INFLUENZA (#1) [facility] Start: 10-12-2022 End: 10-12-2022 [place] individual psychotherapy v2 [facility] Start: 10-05-2022 End: 10-05-2022 [place] individual psychotherapy v2 [facility] Start: 08-03-2022 End: 08-03-2022 [place] individual psychotherapy v2 [facility] Start: 01-26-2022 Influenza vaccination Sequenti al Influenza Vaccine (Season Ended) [facility] Start: 10-27-2021 End: 10-27-2021 ambulatory 10/27/2021 Visit Obstetrics and Gynecology Danni Tamez DO [address] [place] [address] [facility] Physician [facility] Obstetrics and Gynecology Start: 09-29-2021 End: 09-29-2021 Patient encounter procedure 09/29/2021 Office Visit Obstetrics and Gynecology Danni Tamez DO [address] [place] [address] [facility] Physician [facility] Obstetrics and Gynecology Start: 09-19-2021 Subsequent hospital visit by physician 09/19/2021 Hospital Encounter [facility] Mother/ Start: 09-14-2021 End: 09-14-2021 Admission to same day surgery center 09/14/2021 Surgery Obstetrics Tariq Dior MD [address] [address] SECTION WITH BILATERAL PARTIAL SALPINGECTOMY [facility] Comment on above: SECTION WIT H BILATERAL PARTIAL SALPINGECTOMY Start: 09-14-2021 End: 09-14-2021 SECTION WITH BILATERAL PARTIAL SALPINGECTOMY [facility] Start: 09-14-2021 Subsequent hospital visit by physician 09/14/2021 Hospital Encounter Obstetrics Tariq Dior MD [address] [place] [address] [facility] Start: 09-06-2021 End: 09-06-2021 Patient encounter procedure 09/06/2021 Routine Obstetrics and Gynecology Danni Tamez DO [address] [place] [address] [facility] Obstetrics and Gynecology Start: 08-30-2021 End: 08-30-2021 Patient encounter procedure 08/30/2021 Routine Obstetrics and Gynecology Tamie Ayala CNM [address] [place] [address] [facility] Ob[facility]etrics [facility] Gynecology Start: 08-23-2021 End: 08-23-2021 Patient encounter procedure 08/23/2021 Routine Obstetrics and Gynecology Tamie Ayala CNM [address] [place] [address] [facility]etrics [facility] Gynecology Start: 08-22-2021 End: 08-22-2021 Patient encounter procedure 08/22/2021 Routine Obstetrics and Gynecology [facility] Gy[facility] Start: 08-08-2021 End: 08-08-2021 Patient encounter procedure 08/08/2021 Routine Obstetrics and Gynecology Danni Tamez DO [address] [place] [address] [facility]etrics [facility] Gyne[facility] Start: 07-25-2021 End: 07-25-2021 Patient encounter procedure 07/25/2021 Routine Obstetrics and Gynecology Danni Tamez, [address] [facility] [place] [address] [facility] Start: 07-22-2021 End: 07-22-2021 Patient encounter procedure 07/22/2021 Routine Obstetrics and Gynecology Danni Tamez, [address] [place] [address] [facility] Start: 06-20-2021 End: 06-20-2021 Patient encounter procedure 06/20/2021 Routine Obstetrics and Gynecology Danni Tamez, [address] [place] [address] [facility] Start: 06-08-2021 End: 06-08-2021 Patient encounter procedure 06/08/2021 Appointment Maternal and Medicine [facility] Start: 06-06-2021 End: 06-06-2021 Patient encounter procedure 06/06/2021 Routine Obstetrics and Gynecology Danni Tamez, [address] [place] [address] [facility] Start: 05-09-2021 End: 05-09-2021 Patient encounter procedure 05/09/2021 Routine Obstetrics and Gynecology Danni Tamez, [address] [place] [address] [facility] Start: 05-02-2021 End: 04-11-2022 US Obstetric Detail Anatomy Transabdominal Single Fetus US Obstetric Detail Anatomy Transabdominal Single Fetus Imaging Routine Bipolar depression (HCC) Encntr for suprvsn of normal preg, unsp, second trimester Expected: 05/02/2021, Expires: 04/11/2022 [facility] Comment on above: Expected: 05/02/2021 , Expires: 04/11/2022 Start: 04-24-2021 Adolescent depressio n screening assessment Depression Screening [facility] Start: 04-24-2021 Hepatitis C screening Hepatitis C Sc reening [facility] Start: 04-24-2021 HIV screening HIV Screening [facility] Start: 04-24-2021 Lipid panel Cholesterol Sc reening (Lipid Panel) [facility] Start: 04-24-2021 Social Influencers o f Health Screening Social Influencers of Health Screening [facility] Start: 01-26-2021 Influenza vaccination [facility] Start: 12-31-2020 COVID-19 VACCINE (2 - Pfizer series) COVID-19 VACCINE (2 - Pfizer series) [facility] Start: 11-26-2020 COVID-19 Vaccine (2 - Pfizer 2-dose series) COVID-19 Vaccine (2 - Pfizer 2-dose series) [facility] Start: 11-26-2020 COVID-19 Vaccine (2 - Pfizer 3-dose booster series) COVID-19 Vaccine (2 - Pfizer 3-dose booster series) [facility] Start: 11-26-2020 COVID-19 Vaccine (2 - Pfizer 3-dose series) COVID-19 Vaccine (2 - Pfizer 3-dose series) [facility] Start: 11-26-2020 COVID-19 Vaccine (2 - Pfizer series) COVID-19 Vaccine (2 - Pfizer series) [facility] Start: 01-27-2020 Influenza vaccination Flu vaccine (# 1) [facility] [place] Start: 2016 PAP TESTING PAP TESTING [facility] Start: 2016 Screening for malign ant neoplasm of cervix Cervical Cancer Screening: Pap Smear [facility] Start: 2014 DTaP,Tdap,and Td Vac cines (1 - Tdap) DTaP,Tdap,and Td Vaccines (1 - Tdap) [facility] Start: 2014 Hepatitis B Vaccine (1 of 3 - 19+ 3-dose series) Hepatitis B Vaccine (1 of 3 - 19+ 3-dose series) [facility] Start: 2014 Urine microalbumin profile DTAP,TDAP ,TD (1 - Tdap) [facility] Start: 2013 Anxiety Screening Anxiety Screening [facility] Start: 2013 Hepatitis C screening Hepatitis C Sc reening [facility] Start: 2013 HIV SCREENING [facility] SCRE[facility] Start: 2013 HIV screening HIV Screening [facility] Start: 2010 HIV screening HIV Screening [facility] Start: 2007 COVID-19 Vaccine (1) COVID-19 Vaccin e (1) [facility] Start: 2007 Depression screening using PHQ-9 (Patient Health Questionnaire 9) score Depression Screening (PHQ-2/9) [facility] Start: 2006 HPV Vaccines (1 - 2- dose series) HPV Vaccines (1 - 2-dose series) [facility] Start: 2006 Vaccination for elsa n papillomavirus HPV Vaccines (1 - 2-dose series) [facility] Start: 2001 PNEUMOCOCCAL (1 - PCV) PNEUMOCOCCAL (1 - PCV) [facility] Start: 2001 Pneumococcal vaccination Pneum ococcal Vaccine (1 of 2 - PCV) [facility] Start: 2001 Pneumococcal Vaccine : Ped or At-Risk (1 - PCV) Pneumococcal Vaccine: Ped or At-Risk (1 - PCV) [facility] Start: 2001 Pneumococcal Vaccine : Ped or At-Risk (1 of 2 - PPSV23) Pneumococcal Vaccine: Ped or At-Risk (1 of 2 - PPSV23) [facility] Start: 2001 Pneumococcal Vaccine : Pediatrics (0 to 5 Years) and At-Risk Patients (6 to 64 Years) (1 of 2 - PPSV23) Pneumococcal Vaccine: Pediatrics (0 to 5 Years) and At-Risk Patients (6 to 64 Years) (1 of 2 - PPSV23) [facility] Start: 1998 History and physical examination, annual for health maintenance Wellness Visit [facility] Start: 1995 HEPATITIS B (1 of 3 - 3-dose series) HEPATITIS B (1 of 3 - 3-dose series) [facility] Start: 1995 Screening for malign ant neoplasm of cervix Pap Smear [facility] Start: 1995 Tetanus vaccination Tetanus: Every 1 0yrs [facility] Bacteria identified in Unspecified specimen by Aerobe culture Urine Aerobic Culture Microbiology Routine Encntr for suprvsn of normal preg, unsp, second trimester Ordered: 05/09/2021 [facility] Comment on above: Ordered: 05/09/2021 End: 09-06-2022 Bacteria identified in Unspecified specimen by Aerobe culture Urine Aerobic Culture Microbiology Routine Dysuria 1 Occurrences starting 09/06/2021 until 09/06/2022 [facility] Work Phone: Comment on above: 1 Occurrences starti ng 09/06/2021 until 09/06/2022 Bacteria identified in Urine by Culture URINE CULTURE Microbiology Routine Burning with urination 01/09/2023 5:06 PM EDT [facility] Work Phone: Blood group antibody screen [Presence] in Serum or Plasma Antibody Screen Blood Bank Routine Encntr for suprvsn of normal preg, unsp, second trimester Ordered: 07/05/2021 [facility] Comment on above: Ordered: 07/05/2021 Blood type and Indir ect antibody screen panel - Blood Type and Screen Blood Bank Routine Encntr for suprvsn of normal preg, unsp, second trimester Ordered: 05/09/2021 [facility] Comment on above: Ordered: 05/09/2021 section SECTIO N Prior Uterine Surgery [facility] Complete blood count with white cell differential, automated CBC Auto Differential Lab Panel Routine Encntr for suprvsn of normal preg, unsp, second trimester Ordered: 05/09/2021 [facility] Comment on above: Ordered: 05/09/2021 Complete blood count with white cell differential, automated CBC Auto Differential Lab Panel Routine Encntr for suprvsn of normal preg, unsp, second trimester Ordered: 07/05/2021 [facility] Comment on above: Ordered: 07/05/2021 Complete blood count with white cell differential, manual CBC and Differential Lab Routine Encntr for suprvsn of normal preg, unsp, second trimester Ordered: 07/05/2021 [facility] Comment on above: Ordered: 07/05/2021 End: 10-09-2022 Glucose [Mass/volume] in Serum or Plasma --1 hour post 50 g glucose PO Gestational Diabetes Screen (50G) Lab Routine Encntr for suprvsn of normal preg, unsp, second trimester 1 Occurrences starting 04/11/2021 until 10/09/2022 [facility] Work Phone: Comment on above: 1 Occurrences starti ng 04/11/2021 until 10/09/2022 End: 07-05-2022 Glucose [Mass/volume] in Serum or Plasma --1 hour post 50 g glucose PO Gestational Diabetes Screen (50G) Lab Routine Encntr for suprvsn of normal preg, unsp, second trimester 1 Occurrences starting 07/05/2021 until 07/05/2022 [facility] Work Phone: Comment on above: 1 Occurrences starti ng 07/05/2021 until 07/05/2022 Hepatitis B surface antigen measurement Hepatitis B Surface Antigen Lab Routine Encntr for suprvsn of normal preg, unsp, second trimester Ordered: 05/09/2021 [facility] Comment on above: Ordered: 05/09/2021 End: 05-09-2022 Hepatitis C antibody measurement Hepatitis C Antibody Lab Routine Encntr for suprvsn of normal preg, unsp, second trimester 1 Occurrences starting 05/09/2021 until 05/09/2022 [facility] Comment on above: 1 Occurrences starti ng 05/09/2021 until 05/09/2022 Human immunodeficien cy virus antibody test HIV 1/2 Screen (4th Generation) Lab Routine Encntr for suprvsn of normal preg, unsp, second trimester Ordered: 05/09/2021 [facility] Work Phone: Comment on above: Ordered: 05/09/2021 Microscopic examinat ion of vaginal Papanicolaou smear Thinprep Pap Smear Pathology and Cytology Routine Encntr for suprvsn of normal preg, unsp, second trimester Ordered: 05/09/2021 [facility] Comment on above: Ordered: 05/09/2021 End: 04-24-2021 Neisseria gonorrhoeae DNA [Presence] in Urine by VERONICA with probe detection [facility] Work Phone: Comment on above: Once for 1 Occurrenc es starting 04/24/2021 until 04/24/2021 Neisseria gonorrhoea e nucleic acid detection Chlamydia/Gonorrhoeae Amplified RNA Microbiology Routine Encntr for suprvsn of normal preg, unsp, second trimester Ordered: 05/09/2021 [facility] Comment on above: Ordered: 05/09/2021 Neisseria gonorrhoea e nucleic acid detection Chlamydia/Gonorrhoeae Amplified RNA Microbiology Routine 36 weeks gestation of Screening examination for venereal disease Ordered: 08/24/2021 [facility] Comment on above: Ordered: 08/24/2021 OBSTETRIC PANEL Obstetric Panel Lab Routine Encntr for suprvsn of normal preg, unsp, second trimester Ordered: 05/09/2021 [facility] Comment on above: Ordered: 05/09/2021 Patient Education [facility] Work Phone: Patient referral [facility] Work Phone: Rapid plasma reagin test RPR Lab Routine Encntr for suprvsn of normal preg, unsp, second trimester Ordered: 05/09/2021 [facility] Comment on above: Ordered: 05/09/2021 Rapid plasma reagin test RPR Lab Routine Encntr for suprvsn of normal preg, unsp, second trimester Ordered: 07/05/2021 [facility] Comment on above: Ordered: 07/05/2021 Rubella IgG measurement Rubella Antibody, IgG Lab Routine Encntr for suprvsn of normal preg, unsp, second trimester Ordered: 05/09/2021 [facility] Comment on above: Ordered: 05/09/2021 Streptococcus agalac tiae DNA [Presence] in Unspecified specimen by VERONICA with probe detection Group B Strep PCR, Vaginal/Rectal Microbiology Routine 36 weeks gestation of Encounter for screening for Streptococcus B Ordered: 08/24/2021 [facility] Work Phone: Comment on above: Ordered: 08/24/2021 Trichomonas vaginali s rRNA [Presence] in Unspecified specimen by VERONICA with probe detection Trichomonas vaginalis molecular study Lab Routine 04/24/2021 10:01 PM EST [facility] Urinalysis Urinalysis Lab R outine Encntr for suprvsn of normal preg, unsp, second trimester Ordered: 05/09/2021 [facility] Comment on above: Ordered: 05/09/2021 US POC Obstetric Ultrasound US POC Obstetric Ultrasound Imaging Routine 07/22/2021 11:05 AM EST [facility] End: 05-09-2022 Varicella-zoster virus antibody IgG measurement Varicella zoster Antibody, IgG Lab Routine Encntr for suprvsn of normal preg, unsp, second trimester 1 Occurrences starting 05/09/2021 until 05/09/2022 [facility] Comment on above: 1 Occurrences starti ng 05/09/2021 until 05/09/2022 Immunizations Immunization Date Immunization Notes Care Provider [facility] 06-21-2021 tetanus toxoid, redu [place] diphtheria toxoid, and acellular pertussis vaccine, adsorbed Danni Busuito DO Work Phone: [facility] 11-05-2020 COVID-19 original vaccine, age 12+ yr, monovalent (PFIZER-BIONTGrow the Planet - PURPLE TOP) Juan R Szymanski LANDSCAPING CREW LEADER.ADOLESCENT MEDICINE SPECIALIST Work Phone: [facility] Payers Date Payer Category Payer Self-pay [id number] 2021 Medicaid [employer] MEDIC AID [facility] [id number] 2021-Present [address] [place] [address] [id number] 2018 Medicaid [id number]. [id number]. [id number] 2018 Medicaid [id number] 2018 Unknown [id number] 2016 Private Health Insurance [id number] 1995 Unknown [id number] 2.16.840.1.598081.3.579.2. 1143 1995 Unknown [id number] 2.16.840.1.669180.3.579.2. 902 1995 Unknown [id number] 2.16.840.1.076001.3.579.2. 902 1995 Unknown [id number] 2.16.840.1.652178.3.579.2. 2 1995 Unknown [id number] 2.16.840.1.283912.3.579.2. 2 1995 Unknown [id number] 2.16.840.1.405623.3.579.2. 2 1995 Unknown [id number] 2.16.840.1.649754.3.579.2. 1995 Unknown [id number] 2.16.840.1.203281.3.579.2. 1995 Unknown [id number] 2.16.840.1.517654.3.579.2. 1995 Unknown [id number] 2.16.840.1.231858.3.579.2. 1995 Unknown [id number] 2.16.840.1.599252.3.579.2. 1995 Unknown [id number] 2.16.840.1.890129.3.579.2. 1995 Unknown [id number] 2.16.840.1.944817.3.579.2. 1995 Unknown [id number] 2.16.840.1.927908.3.579.2. 1995 Unknown [id number] 2.16840.1.709917.3.579.2. 1995 Unknown [id number] 2.16.840.1.157402.3.579.2. 1995 Unknown [id number] 2.16.840.1.351320.3.579.2. 1995 Unknown [id number] 2.16.840.1.986932.3.579.2. 1995 Unknown [id number] 2.16.840.1.132293.3.579.2. 1995 Unknown [id number] 2.16.840.1.949656.3.579.2. 903 1995 Unknown [id number] 2.16.840.1.282240.3.579.2. 903 1995 Unknown [id number] 2.16.840.1.283951.3.579.2. 903 1995 Unknown [id number] 2.16.840.1.607701.3.579.2. 903 1995 Unknown [id number] 2.16.840.1.916712.3.579.2. 903 1995 Unknown [id number] 2.16.840.1.360042.3.579.2. 903 1995 Unknown [id number] 2.16.840.1.958314.3.579.2. 903 1995 Unknown [id number] 2.16.840.1.624517.3.579.2. 1069 1995 Unknown [id number] 2.16.840.1.580390.3.579.2. 900 1995 Unknown [id number] 2.16.840.1.721682.3.579.2. 651 1995 Unknown [id number] 2.16.840.1.920857.3.579.2. 651 1995 Unknown [id number] 2.16.840.1.320700.3.579.2. 627 Unknown [facility] Unknown [id number] Unknown [id number] 2.16.840.1.576782.3.579.2. 462 Unknown [id number] 2.16840.1.862286.3.579.2. 462 Unknown [id number] 2.16.840.1.796462.3.579.2. 462 Social History Date Type Detail Facility Start: 01-07-2020 End: 12-10-2024 Tobacco smoking status NHIS Current every day smoker [employer] History of tobacco use Cigarette Smoker M amy DeNA ELLIS ROJAS Start: 01-07-2020 End: 05-04-2020 Cigarettes smoked current (pack per day) - Reported [facility] Start: 01-07-2020 End: 06-24-2020 Tobacco use and exposure Never used [employer] HELLIS Start: 01-07-2020 Alcohol intake [facility] Start: 01-07-2020 Alcohol Comment occasionally Delmis DeNA ELLIS ROJAS Start: 1995 Sex Assigned At Not [facility] file [facility] Start: 10-06-2020 End: 10-01-2021 Exposure to SARS-CoV-2 (event) Not sure [facility] DeNA IAELLIS Start: 11-09-2020 End: 04-11-2021 Alcohol intake Ex-drinker (finding) [facility] Start: 04-11-2021 History DCOH Alcohol Comment Have not heavily for 9 yrs, occassionally now. [facility] Start: 12-26-2020 [facility] Start: 04-24-2021 Tobacco Comment pt is in process of quiting [employer] Start: 10-26-2021 End: 06-15-2023 Tobacco smoking status NHIS Unknown if ever smoked [facility] Start: 1995 End: 1995 Sex Assigned At Female [facility] Start: 05-04-2020 End: 10-08-2020 Social connection and isolation panel [facility] Do you belong to any clubs or organizations such as buddhism groups, unions, fraternal or athletic groups, or school groups? No [facility] Are you now , , , , never or living with a partner? Never [facility] How often to you hav e a drink containing alcohol? 2-4 times a month [facility] How many standard dr inks containing alcohol do you have on a typical day? 1 or 2 [facility] How often do you hav e 6 or more drinks on 1 occasion? Less than monthly [facility] How hard is it for y ou to pay for the very basics like food, housing, medical care, and heating Somewhat hard [facility] Adult Depression Screening Assessment 5 [facility] Do you feel stress - tense, restless, nervous, or anxious, or unable to sleep at night because your mind is troubled all the time - these days [OSQ] Very much [facility] (I/We) worried michell er (my/our) food would run out before (I/we) got money to buy more. Sometimes true [facility] Start: 10-08-2020 Education 14 [facility] Start: 10-08-2020 Gender identity Identifies as female gender (finding) [facility] Start: 10-08-2020 Sexual orientation Bisexual (finding) [facility] Tobacco smoking status No Smokin g Status Entered [facility] Goals Date Patient Goal Desired Activity /State 04-27-2022 Goal Observation Functional Status Date Assessment Result Facility 05-02-2024 Functional Status Standard Safet y ID band on, Allergy Band on, Call device within reach, Bed in low position, Wheels locked, Upper/Half-Length side-rails up, Bedside Cart Locked, Safety level maintained [facility] Mental Status Date Assessment Result Facility 05-02-2024 Mental Status Orientation Oriented x 4 [facility] Clinical Notes 06-30-2020 to 05-02-2024 Telephone Encounter - Stefany Aguirre LPN - 01/16/2023 3:54 PM EDTTelephone Encounter - Rosi Guillermo MA - 01/15/2023 8:12 AM EDTTelephone Encounter - Yenifer Cobos - 01/14/2023 8:50 AM EDT Note Date & Type Note Facility 05-02-2024 Hospital Discharg e instructions Patient Education 05/02/2024 20:20:45 Dental Pain Dental Pain A crack or cavity in a tooth can cause tooth pain. This is because the crack or cavity exposes the sensitive inner area of the tooth. An infection in the gum or the root of the tooth can cause pain and swelling. The pain is often made worse when you drink hot or cold beverages. It can also be worse when you bite on hard foods. Pain may spread from the tooth to your ear or the area of the jaw on the same side. Home care Follow these tips when caring for yourself at home: Don't have hot and cold foods and drinks. Your tooth may be sensitive to changes in temperature. Use toothpaste made for sensitive teeth. [place] gently up and down instead of sideways. Brushing sideways can wear away root surfaces if they are exposed. If your tooth is chipped or cracked, or if there is a large open cavity, put oil of cloves directly on the tooth to relieve pain. You can buy oil of cloves at [facility]. Some pharmacies carry an xuyx-gwg-cafuspc toothache kit. This contains a paste that you can put on the exposed tooth to make it less sensitive. Put a cold pack on your jaw over the sore area to help reduce pain. You may use ohsp-bcy-iqakyve medicine to ease pain, unless your doctor prescribed another medicine. If you have chronic liver or kidney disease, talk with your healthcare provider before using acetaminophen or ibuprofen. Also talk with your provider if you ve had a stomach ulcer or GI bleeding. If you have signs of an infection, you will be given an antibiotic. Take it as directed. Follow-up care Follow up with your dentist, or as advised. Your pain may go away with the treatment given today. But only a dentist can fully look at and treat the cause of your pain. This will keep the pain from coming back. Call 911 Call 911 if any of these occur: Unusual drowsiness Headache or stiff neck Weakness or fainting Difficulty swallowing or breathing When to seek medical advice Call your health care provider right away if any of these occur: Your face becomes swollen or red Pain gets worse or spreads to your neck Fever of 100.4 F (38.0 C) or higher, or as directed by your healthcare provider Pus drains from the tooth [phone] [employer]. [address] [place] [address], [place] [address]. All rights reserved. This information is not intended as a substitute for professional medical care. Always follow your healthcare professional's instructions. 05/02/2024 20:20:42 Dental Cavity Dental Cavity A dental cavity is a pit or crater in the surface of a tooth. This exposes the sensitive inner layer of the tooth and causes pain. If the cavity isn t treated, it will get bigger. It may enter the pulp and cause an infection or abscess in the bone at the root end (apex) of the tooth. An infection in the tooth is a much more serious problem than a cavity. If the tooth gets infected, you will need a root canal or the entire tooth taken out (extraction). The pain in your tooth may be made worse by eating sweets or drinking hot or cold beverages. It may spread from the tooth to your ear or the area of your jaw on the same side. Home care Follow these tips when caring for yourself at home: Don't have sweets and hot and cold foods and drinks. Your tooth may be sensitive to changes in temperature. If your tooth is chipped or cracked, or if there is a large open cavity, put oil of cloves directly on the tooth to relieve pain. You can buy oil of cloves at drugstores. Some pharmacies carry an uizv-mtn-lfisiac toothache kit. This contains a paste that you can put on the exposed tooth to make it less sensitive. Put a cold pack on your jaw over the sore area to help reduce pain. You may use lokw-pjz-jsiblrm medicine to ease pain, unless another medicine was prescribed. If you have chronic liver or kidney disease, talk with your healthcare provider before using acetaminophen or ibuprofen. Also talk with your provider if you ve had a stomach ulcer or GI bleeding. If you have signs of an infection, you will be given an antibiotic. Take it as directed. Follow-up care Follow up with your dentist, or as advised. Your pain may go away with the treatment given today. But only a dentist can fully look at and treat this problem to prevent further tooth damage. Call 911 Call 911 if any of these occur: Difficulty swallowing or breathing Weakness or fainting Unusual drowsiness Headache or stiff neck When to seek medical advice Call your healthcare provider right away if any of these occur: Redness or swelling of the face Pain gets worse or spreads to your neck Fever of 100.4 F (38 C) or higher, or as directed by your healthcare provider Pus drains from the tooth or gum 9087-6059 [employer]. [address] [place] [address], [place] [address]. All rights reserved. This information is not intended as a substitute for professional medical care. Always follow your healthcare professional's instructions. Follow Up Care 05/02/2024 19:54:32 With:Call THAO Schneider Pt. Refferral [phone] Address:Unknown When:2-4 days [facility] Miguelina Rocha 05-02-2024 Emergency department Discharge summary Discharge Instructions Thank you for allowing [facility] to assist you with your healthcare needs. The following is important discharge information regarding your hospital visit. What to Do Next Instructions from Your Care Team Call the dentist next week. To schedule an appointment. No qualifying data available. Post Acute Orders No qualifying data available. You Need to Schedule the Following Appointments Follow Up with Call AMB New Pt. Refferral [phone] When:Within 2-4 days Allergies penicillin Medications Please ask your primary doctor or pharmacist before taking any other medication not listed, including over the counter drugs, herbal medications, vitamins and or supplements as they may interact with your home medications. What How Much When Instructions Last Dose New clindamycin (clindamycin 300 mg oral capsule) 1 cap by mouth Every 6 hours Duration: 7 Days Printed Prescription New naproxen (naproxen 500 mg oral tablet) 1 tab(s) by mouth Two (2) times a day as needed for as needed for pain Printed Prescription Please take this list to your next doctor s visit. Bring all medications you take, including over the counter medications, herbals and other supplements with you to your doctor s visit. Patients and families are reminded to discard old lists and to update any records with all medication providers or retail pharmacies. Education Materials Dental Pain A crack or cavity in a tooth can cause tooth pain. This is because the crack or cavity exposes the sensitive inner area of the tooth. An infection in the gum or the root of the tooth can cause pain and swelling. The pain is often made worse when you drink hot or cold beverages. It can also be worse when you bite on hard foods. Pain may spread from the tooth to your ear or the area of the jaw on the same side. Home care Follow these tips when caring for yourself at home: Don't have hot and cold foods and drinks. Your tooth may be sensitive to changes in temperature. Use toothpaste made for sensitive teeth. [place] gently up and down instead of sideways. Brushing sideways can wear away root surfaces if they are exposed. If your tooth is chipped or cracked, or if there is a large open cavity, put oil of cloves directly on the tooth to relieve pain. You can buy oil of cloves at drugstores. Some pharmacies carry an ahiq-qjc-jnfyetn toothache kit. This contains a paste that you can put on the exposed tooth to make it less sensitive. Put a cold pack on your jaw over the sore area to help reduce pain. You may use qear-yzv-wimccaj medicine to ease pain, unless your doctor prescribed another medicine. If you have chronic liver or kidney disease, talk with your healthcare provider before using acetaminophen or ibuprofen. Also talk with your provider if you ve had a stomach ulcer or GI bleeding. If you have signs of an infection, you will be given an antibiotic. Take it as directed. Follow-up care Follow up with your dentist, or as advised. Your pain may go away with the treatment given today. But only a dentist can fully look at and treat the cause of your pain. This will keep the pain from coming back. Call 911 Call 911 if any of these occur: Unusual drowsiness Headache or stiff neck Weakness or fainting Difficulty swallowing or breathing When to seek medical advice Call your health care provider right away if any of these occur: Your face becomes swollen or red Pain gets worse or spreads to your neck Fever of 100.4 F (38.0 C) or higher, or as directed by your healthcare provider Pus drains from the tooth [phone] [employer]. [address] [place] [address]. All rights reserved. This information is not intended as a substitute for professional medical care. Always follow your healthcare professional's instructions. Dental Cavity A dental cavity is a pit or crater in the surface of a tooth. This exposes the sensitive inner layer of the tooth and causes pain. If the cavity isn t treated, it will get bigger. It may enter the pulp and cause an infection or abscess in the bone at the root end (apex) of the tooth. An infection in the tooth is a much more serious problem than a cavity. If the tooth gets infected, you will need a root canal or the entire tooth taken out (extraction). The pain in your tooth may be made worse by eating sweets or drinking hot or cold beverages. It may spread from the tooth to your ear or the area of your jaw on the same side. Home care Follow these tips when caring for yourself at home: Don't have sweets and hot and cold foods and drinks. Your tooth may be sensitive to changes in temperature. If your tooth is chipped or cracked, or if there is a large open cavity, put oil of cloves directly on the tooth to relieve pain. You can buy oil of cloves at drugstores. Some pharmacies carry an ekhu-zoe-zvmgqkl toothache kit. This contains a paste that you can put on the exposed tooth to make it less sensitive. Put a cold pack on your jaw over the sore area to help reduce pain. You may use ruez-mwu-sknmpsj medicine to ease pain, unless another medicine was prescribed. If you have chronic liver or kidney disease, talk with your healthcare provider before using acetaminophen or ibuprofen. Also talk with your provider if you ve had a stomach ulcer or GI bleeding. If you have signs of an infection, you will be given an antibiotic. Take it as directed. Follow-up care Follow up with your dentist, or as advised. Your pain may go away with the treatment given today. But only a dentist can fully look at and treat this problem to prevent further tooth damage. Call 911 Call 911 if any of these occur: Difficulty swallowing or breathing Weakness or fainting Unusual drowsiness Headache or stiff neck When to seek medical advice Call your healthcare provider right away if any of these occur: Redness or swelling of the face Pain gets worse or spreads to your neck Fever of 100.4 F (38 C) or higher, or as directed by your healthcare provider Pus drains from the tooth or gum 1801-8832 [employer]. [address] [place] [address]. All rights reserved. This information is not intended as a substitute for professional medical care. Always follow your healthcare professional's instructions. Additional Information VACCINATE! IT SAVES LIVES! Members of the community who have not yet received the COVID-19 vaccine and would like to receive it can visit one of [facility] vaccine clinics. There are many vaccine clinic locations within the [facility]. For locations and available times, please visit www.gettheshot.coronavirus.[place] .gov/. It is important to note that some COVID mobile vaccine clinics are held outdoors and may be canceled in rainy or stormy conditions. To learn more about pediatric vaccinations (ages 5-11), we invite you to visit the [facility] webpage. https://www.akMember Savings Programchildrens.org/ pages/5069-Snbws-Jfpagcxtzkr-Fr acnwmnmn-Cnhsy-Dymtbrkhm.html To learn more about the COVID-19 vaccine, we invite you to visit the CDC website for a list of frequently asked questions. https://www.cdc.gov/coronavirus /2019-ncov/vaccines/faq.html [facility] Patient Portal Access Instructions: Stay connected with your healthcare team and access your personal medical information anytime with the [facility] Patient Portal. If you would like a full copy of your medical records please contact the [facility] Medical Records Department Sunday through Sunday between 8a.m. and 4:30p.m. Please follow the directions below to access the portal: 1.Access the email account you provided upon registration to the [facility].2.Look for an invitation email from [facility].3.Open the email and access the invitation link: Accept Invitation to [facility].Fill in the required haq to create your account. Sign into [email or web address] with your username and password that you created in the above steps to stay up to date. You can then view a summary of results, a summary of your visits, and the ability to download your summaries to your computer or send the information securely to a physician. Remember that your healthcare information is confidential, so carefully consider who you will allow to register on the [facility] Patient Portal for access to your information. You can also access the [facility] Patient Portal on the [place] [facility] [place]. Simply click on Health Records under Health Data and then click on the [employer] logo. HOW TO SAFELY DISPOSE OF PRESCRIPTION MEDICATIONS Please use one of the following methods to safely dispose of your unused medications. 1.Use a drug disposal kit: the drug disposal pouch allows you to safely discard your old and unused drugs. Ask your nurse to give you one when you are discharged.2.Visit a local take-back location: Many local pharmacies and police departments have programs that collect old and unwanted prescription drugs. Call your local pharmacy or go to http://bit.DocSpera/1C2Vy5z to find one close to you.3.Make use of household items: Use cat litter or old coffee grounds to dispose medications if other options are not available. Mix your drugs with these household products, seal them in an airtight container and throw it into the garbage. Call [facility]: [phone] to be sure your drugs can be disposed of in this way. Some medicines may require a different approach.4.Never flush your medications down the toilet. IF YOU HAVE BEEN PRESCRIBED AN OPIOIDS FOR PAIN If you have been prescribed an opioid (such as hydrocodone, oxycodone or morphine), it is critical to understand the possible side effects and risks of opioid pain medications. Even when taken as directed, opioids can have several side effects including: Tolerance, meaning you might need to take more of a medication for the same pain relief. Nausea, vomiting and/or constipation. Sleepiness, dizziness, dry mouth, confusion, depression or itching. Physical dependence, meaning you have withdrawal symptoms when a medication is stopped ? this can develop within a few days. KNOW YOUR RESPONSIBILITIES It is important to know exactly how much and how often to take the opioid pain medications you are prescribed. Never take opioids in higher amounts or more often than prescribed. Do not combine opioids with alcohol or other drugs that cause drowsiness, such as benzodiazepines, also known as benzos, including diazepam and alprazolam, muscle relaxants or sleep aids. Never sell or share prescription opioids. This is illegal. Store opioids in a secure place and out of reach of others (including children, family, friends and visitors). The last page(s) of this document has been signed and retained as a CHART COPY Signatures Patient Education Materials Dental Pain Dental Cavity Medication Leaflets My discharge plan and instructions have been reviewed and explained to me and IDESTINEE AMANDA G understand my current condition and have read and understand these discharge instructions. I have received a written copy of the plan/instructions. If I have questions, I am aware that I should contact my doctor. 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 You have been evaluated today by Isma Recinos D.O. for the following condition(s): Principal Diagnosis Acute nontraumatic generalized abdominal pain. Acute generalized abdominal pain of unknown cause. INSTRUCTIONS Follow-up with: Treasure Cortes DNP, APRN, ALEJANDRINA, [facility], Family Care, , [address] [place] [address]. Follow up in two. Call for an appointment. (Return to the emergency department for increasing pain problems or concerns. Not sure what is causing her discomfort but it increases return). You have been given the following additional information: Unknown Causes of Abdominal Pain (Female) Patient Signature Facility [facility] [employer] Date/Time 1 of 5 Discharge Instructions General Instructions with [facility] [address] [place] [address] [id number] 03/04/2024 Patient: MITZI LAWLER Sex: Female : 1995 Age: 28y Thank you for visiting [facility]. You have been evaluated today by Isma Recinos D.O. for the following condition(s): Principal Diagnosis Acute nontraumatic generalized abdominal pain. Acute generalized abdominal pain of unknown cause. INSTRUCTIONS Follow-up with: Treasure Cortes DNP, APRN, ALEJANDRINA, [facility] Family [facility], , [address] [place] [address]. Follow up in two. Call for an [...] Rapid heart rate (more content not included)... [facility] 07-07-2023 Evaluation note Sat Jul 07 00 :26:20 EST 2023: No Assessment Information [facility] 06-04-2023 Note HNO ID: [id number] Author: BONNIE NAVARRO APRN.ADOLESCENT MEDICINE SPECIALIST Service: ? Author Type: Nurse Practitioner Type: [...] 06/24/2020t had 2 previous C sections in [place]. She desires a . I have asked her to obtain her operative report from her last delivery in [place]. I have also asked the patient to activate her [employer] and I will send her EMMIS on [...] place, and time. (more content not included)... [facility] 03-26-2023 Evaluation note Mon Mar 26 07 :59:11 EDT 2022: No Assessment Information [facility] 03-25-2023 Evaluation note SunMar 25 23 :53:54 EDT 2022: No Assessment Information [facility] 03-25-2023 Evaluation note SunMar 25 17 :10:20 EDT 2022: No Assessment Information [facility] 03-25-2023 Evaluation note SunMar 25 15 :25:53 EDT 2022: No Assessment Information [facility] 03-23-2023 Evaluation note Fri Mar 23 16 :35:12 EDT 2022: No Assessment Information [facility] 03-21-2023 Evaluation note Wed Mar 21 03 :21:54 EDT 2022: No Assessment Information [facility] 03-20-2023 Evaluation note TuMar 20 20 :03:50 EDT 2022: No Assessment Information [facility] 03-20-2023 Evaluation note SunMar 20 06 :22:46 EDT 2022: No Assessment Information [facility] 03-20-2023 Evaluation note SunMar 20 04 :36:26 EDT 2022: No Assessment Information [facility] 03-20-2023 Evaluation note SunMar 20 00 :39:04 EDT 2022: No Assessment Information [facility] 02-25-2023 Evaluation note SunFeb 25 22 :08:10 EDT 2022: No Assessment Information [facility] 02-23-2023 Evaluation note Fri Sep 00 :47:54 EDT 2022: No Assessment Information [facility] 02-18-2023 Evaluation note Sun Feb 18 23 :34:25 EDT 2022: No Assessment Information [facility] 02-17-2023 Evaluation note Sat Sep 16 :13:07 EDT 2022: No Assessment Information [facility] 02-16-2023 Evaluation note Fri Sep 03 :03:03 EDT 2022: No Assessment Information [facility] 02-14-2023 Evaluation note Wed Sep 20 20 :35:13 EDT 2022: No Assessment Information [facility] 02-11-2023 Evaluation note SunFeb 11 15 :41:51 EDT 2022: No Assessment Information [...] Assessment Information [facility] 01-29-2023 Evaluation note Mon Jan 29 21 :31:21 EDT 2022: No Assessment Information [facility] 01-28-2023 Evaluation note Sun Jan 28 15 :24:46 EDT 2022: No Assessment Information [facility] 01-28-2023 Evaluation note Sun Jan 28 14 :54:48 EDT 2022: No Assessment Information [facility] 01-28-2023 Evaluation note Sun Jan 28 13 :28:41 EDT 2022: No Assessment Information [facility] 01-28-2023 Evaluation note Sun Jan 28 13 :00:15 EDT 2022: No Assessment Information [facility] 01-27-2023 Evaluation note Sat Jan 27 22 :26:56 EDT 2022: No Assessment Information [facility] 01-16-2023 Miscellaneous Notes Pt called back and message below was given. Pt is at work and does not get messages sometimes till after 5 pm. Pt verbalizes understanding. Stefany Aguirre LPN documented in this encounter [facility] 01-15-2023 Miscellaneous Notes Third and final [...] primary care provider documented in this encounter [facility] 01-13-2023 Evaluation note Sat Jan 13 [...] Assessment Information [facility] 01-09-2023 Note HNO ID: [id number] Author: Juan R Szymanski APRN.ADOLESCENT MEDICINE SPECIALIST Service: ? Author Type: Nurse Practitioner Type: Progress Notes Filed: 01/09/2023 4:00 PM Note Text: Subjective HPI A nontoxic appearing female presents to urgent care with chief complaint of possible UTI. Duration of symptoms 1 week. Associated symptoms dysuria, frequency, and urgency. Patient has history of UTIs in past with similar signs and symptoms. Patient denies the use of any uabm-elv-nrmatwz medications or home remedies for symptom management. [...] 06/24/2020t had 2 previous C sections in [place]. She desires a . I have asked her to obtain her operative report from her last delivery in [place]. I have also asked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 03/21/21 Form Builder Relationship Specialty Start Date End Date No, Physician [facility] PCP - General 03/21/21 Form Builder Relationship Specialty Start Date End Date No, Physician [facility] PCP - General 03/21/21 Form Builder Relationship Specialty Start Date End Date No, Physician [facility] PCP - General 03/21/21 Form Builder Relationship Specialty Start Date End Date No, Physician [facility] PCP - General 03/21/21 Form Builder Relationship Specialty Start Date End Date No, Physician [facility] PCP - General 03/21/21 Form Builder Relationship Specialty Start Date End Date No, Physician [facility] PCP - General 03/21/21 Form Builder Relationship Specialty Start Date End Date No, Physician [facility] PCP - General 03/21/21 Form Builder Relationship Specialty Start Date End Date No, Physician [facility] PCP - General 03/21/21 Form Builder Relationship Specialty Start Date End Date No, Physician [facility] PCP - General 03/21/21 Form Builder Relationship Specialty Start Date End Date No, Physician [facility] PCP - General 03/21/21 Form Builder Relationship Specialty Start Date End Date No, Physician [facility] PCP - General 09/14/21 Form Builder Relationship Specialty Start Date End Date No, Physician [facility] PCP - General 09/14/21 Form Builder Relationship Specialty Start Date End Date No, Physician [facility] PCP - General 09/14/21 Form Builder Relationship Specialty Start Date End Date Juan R Osorio MD [address] [place] [address] PCP - General Family Medicine 11/05/20 Form Builder Relationship Specialty Start Date End Date Juan R Osorio MD [address] [place], [place] [address] PCP - General Family Medicine 11/05/20 Form Builder Relationship Specialty Start Date End Date Juan R Osorio MD [address] [place] [address] PCP - General Family Medicine 11/05/20 Team Status: Active Member Role Status Dates No Primary Care Physician Primary Care Provider Active Team Status: Inactive Member Role Status Dates No Primary Care Physician Primary Care Provider Active Dr. Myron Machuca , DO Emergency Provider Active Form Builder Relationship Specialty Start Date End Date Juan R Osorio MD [address] [place] [address] PCP - General Family Medicine 11/05/20 11/06/23 Team Status: Active Member Role/Relationship Status Dates No Primary Care Physician Primary Care Provider Active Team Status: Inactive Member Role/Relationship Status Dates No Primary Care Physician Primary Care Provider Active Start: December 10, 2024 End: December 10, 2024 Dr. Serafin Antonio , DO Emergency Provider Active Start : December 10, 2024 End: December 10, 2024 Goals (unrecognized section and content) Goals may be documented in a n alternate section No Goals Information No Goals Information No [...] Goals Information No Goals Information No Goals InformationGoals may be documented in an alternate section No data available for this sectionGoals may be documented in an alternate section <item> Privacy Markings (unrecogniz ed section and [...] or prosecute any alcohol or drug abuse patient.[facility] the event this information is protected by the Federal Confidentiality of Alcohol and Drug Abuse Patient Records regulations: The Federal rules restrict any use of the information to criminally investigate or prosecute any alcohol or drug abuse patient.[facility] the event this information is protected by the Federal Confidentiality of Alcohol and Drug Abuse Patient Records regulations: The Federal rules restrict any use of the information to criminally investigate or prosecute any alcohol or drug abuse patient.[facility] the event this information is protected by the Federal Confidentiality of Alcohol and Drug Abuse Patient Records regulations: The Federal rules restrict any use of the information to criminally investigate or prosecute any alcohol or drug abuse patient.[facility] FOR RECORDS PERTAINING TO PATIENTS WHO [...] BE BASED ON THE PRIMARY CLINICAL RECORDS. [facility] [employer] [facility]. provides no warranty or guarantee of the accuracy or completeness of information in this document."
--- OUTSIDE RECORDS SUMMARY | 2024-12-10 23:06 | XMS RPT_ITS | CCD ---
Author Organization [facility] Care Team Providers Care Wood Carver Name Role Phone Unavailable Primary Care Provider [...] Unavailable Rachele Metcalf Unavailable Dedra Cui Unavailable [phone] Dr. Jeff Wilks Attending Unavaila ble Rhett Carrilloicka Unavailable Trav pressley Dedra Unavailable [phone] Juan R Osorio MD Primary Care Provider JOSSELYN MITCHELL Attending Unavailable NO, PHYSICIAN Primary Care Unavailable JUAN R OSORIO Primary Care Unavailable JUAN R OSORIO Primary Care Unavailable Juan R Osorio MD Primary Care Provider GRACIE SHARMA MD Admitting Unavailable GRACIE SHARMA MD Attending Unavailable GRACIE SHARMA MD Primary Care Unavailable IMSA RECINOS Admitting Unavailable ISMA RECINOS Attending Unavailable [...] to adverse reactions to drug 9 Anaphylaxis [place], [place] (20 sources) buPROPion; Translations: [BUPROPION] Drug Allergy 0 Vomiting [facility] (20 sources) cefprozil; Translations: [CEFPROZIL] Drug Allergy 0 Itching [facility] (20 sources) Penicillins Propensity to adverse reactions to drug 9 Anaphylaxis [facility] (7 sources) Amoxicillin; Translations: [AMOXICILLIN] Drug Allergy 1 Anaphylaxis [facility] (4 sources) Ampicillin; Translations: [AMPICILLIN] Drug Allergy 1 Anaphylaxis [facility] (20 sources) Morphine; Translations: [MORPHINE] Drug Allergy 1 Sleep Issues, Other (See Comments) [facility] (5 sources) strawberry allergenic extract; Translations: [STRAWBERRY] Drug Allergy 2 Other (See Comments) [facility] Repository (4 sources) Penicillins Drug Allergy 9 Anaphylaxis [facility] (2 sources) Penicillins Allergy to substance 4 Anaphylaxis [facility] (1 source) Penicillins Drug allergy (disorder) [facility] (1 source) Amoxicillin Drug Allergy 4 [facility] Repository (1 source) buPROPion Drug Allergy 4 [facility] Repository (1 source) cefprozil Drug Allergy 4 [facility] Repository (1 source) Penicillins Drug allergy (disorder) 4 [facility] Repository (1 source) Penicillin; Translations: [penicillin] Drug Allergy [facility] Medications Current Medications Medication Drug Class(es) [...] on above: Take 1 capsule by mo [facility] twice daily for 30 days. hydrOXYzine [...] ibuprofen (ADVIL;MOTRIN) tab let 600 mg levonorgestrel 0.065008 mg/hr intrauterine system (1 source) Progestin, Progestin-containing Intrauterine Device levonorgestrel (MIRENA) IUD 52 mg 1 each by Intrauterine route once 0 Active magic mouthwash w/ nystatin susp equal parts viscous lidocaine 2%, diphenhydramine 12.5mg/5mL, maalox [id number]-[id number]-81mr/5mL, nystatin 100,000unit/mL (2 sources) Start: 2021 End: 2021 magic mouthwash w/ nystatin susp equal parts viscous lidocaine 2%, diphenhydramine 12.5mg/5mL, maalox [id number]-[id number]/5mL , nystatin 100,000unit/mL Swish and swallow 5 [...] on above: Take 1 capsule by mo [facility] twice daily for 5 days. omeprazole [...] 10 0 June 15, 2023 5:23am Pnv No.941-Gx-Is8-Dha-Epa -Fish ( Gummies) 400 mcg-35 mg- 25 mg-5 mg Tablet,Chewable (3 sources) Start: 10-26-2021 take 1 tablet by mouth once daily Pnv No.547-Vf-Lc8-Dha-E pa-Fish ( Gummies) 400 mcg-35 mg- 25 mg-5 mg Tablet,Chewable Active 1 TABLET PO DAILY October 26, 2021 8:14pm Start: 10-26-2021 End: 06-15-2023 Pnv No.604-Hr-Th5-Dha-Epa-Fi sh ( Gummies) 400 mcg-35 mg- 25 mg-5 mg Tablet,Chewable Discontinued 1 {tbl} PO DAILY October 26, 2021 12:00am June 15, 2023 2:50am Start: 10-26-2021 End: 06-15-2023 take 1 tablet by mouth once daily Pnv No.989-Rs-Kk7-Lxy-Ahj-Nojj ( Gummies) 400 mcg-35 mg- 25 mg-5 [...] Comment on above: Take 2 capsules by [facility] three times daily as needed. fluticasone [...] lukasz by mouth . 0 Active nystatin [id number] unt/ml oral suspension (2 sources) Polyene Antifungal [...] Reporton 1 06-04-2023 Urgent Care Visit Report [facility] [address], [address] [place] [address] OFFICE VISIT Date of Service: 04/04/24 MR#: [id number] Acct: [id number] Name: DESTINEEMITZIJULIANA MAHMOOD Rep #: [id number] : 1995 Provider: KIMMY Guido Age/Sex: 28/F [place] [facility] [place] Status: Signed Intake Vital Signs 03/19/24 07:53 Height 5 ft 2 in Intake Visit Reasons: PE NON DOT PHYSICAL/ [facility] Allergies amoxicillin Allergy (Verified 03/19/24 07:54) Anaphylaxis cefprozil (From Cefzil) Allergy (Verified 03/19/24 07:54) Itching Penicillins (PCN) Allergy (Verified 03/19/24 07:54) Anaphylaxis bupropion (From Wellbutrin) Adverse Reaction (Verified 03/19/24 07:54) Vomiting [facility] Medical History (Updated 04/04/24 @ 14:46 by [...] Cosigner Signature: Date (if applicable) CC: Normal [facility] Urine Cultureon 03-21-2024 [facility] Staphylococcus saprophyticus urine sensitivities are not recommended per CLSI guidelines. Treatment with Nitrofurantoin, Trimethoprim/Sulfa or a Fluroquinolone is suggested. Staphylococcus saprophyticus Rembert Count 80,000-100,000 Staphylococcus saprophyticus: REACTION Clindamycin.induced Susc Islt Gentamicin Islt ANGUS <=0.5 S Nitrofurantoin Islt ANGUS <=16 S Oxacillin Susc Islt >=4 R Tetracycline Islt ANGUS <=1 S Vancomycin Islt ANGUS <=0.5 S Normal [facility] Comment on above: Performed By: #### M 100.2200 #### [facility] [address] [place], [place], [address] Abdomen/Pelvis without Conto n 03-19-2024 Abdomen/Pelvis without Cont [facility] Imaging Services [address] [place], [place] [address] Abdomen/Pelvis without Cont MR#: [id number] Acct: [id number] Name: MITZI LAWLER Rep #: [id number] : 1995 F 28 From: Luke brown MD PCP: Care Physician,No Primary Status: REG ER Study: Abdomen/Pelvis without Cont Date of Exam: 02/26 08/18 Exam# [id number] Ordering Dr: Rock Calvin DO -[id number] STUDY: CT ABDOMEN AND PELVIS WITHOUT [...] Rock Calvin, DO; No Primary Care Physician Loom Repairer: Signed Normal [facility] Basic Metabolic Profile (BMP )on 03-19-2024 BUN/CRE 10.0 RATIO Normal 03-16 [facility] Comment on above: Performed By: #### L 100.0100, L500.2500 ####[facility] [address] [place], [place], [id number]) CA,Total 9.4 mg/dL Normal 8.5-10.1 [facility] Comment on above: Performed By: #### L 100.0100, L500.2500 ####[facility] [address] [place], [address] Chloride [Moles/Vol] 108 mmol/L High 98-107 [facility] Comment on above: Performed By: #### L 100.0100, L500.2500 ####[facility] [address] [place], [address] CO2 [Moles/Vol] 27.0 mmol/L Normal 21.0-32.0 [facility] Comment on above: Performed By: #### L 100.0100, L500.2500 ####[facility] [address] [place], [address] Creatinine [Mass/Vol] 0.60 mg/dL Normal 0.55-1.02 [facility] Comment on above: Result Comment: The validity of the calculated GFR GFRAA in patients over 70 years has not been determined. Clinical correlation is essential. Performed By: #### L 100.0100, L500.2500 ####[facility] [address] [place], [address] ECRCL 149.89 ml/min Normal [facility] Comment on above: Performed By: #### L 100.0100, L500.2500 ####[facility] [address] [place], [address] EST GFR - AA 153 mL/min Normal >60 [facility] Comment on above: Result Comment: Afri can Vietnamese GFR Calc Performed By: #### L 100.0100, L500.2500 ####[facility] [address] [place], [address] GAP 4 Low 5-15 [facility] Comment on above: Performed By: #### L 100.0100, L500.2500 ####[facility] [address] [place], [address] GFR/1.73 sq M.predicted among non-blacks MDRD (S/P/Bld) [Vol rate/Area] 126 mL/min/{1.73_m2} Normal >60 [facility] Comment on above: Result Comment: Non- GFR Calc Performed By: #### L 100.0100, L500.2500 ####[facility] [address] [place], [address] Glucose [Mass/Vol] 100 mg/dL Normal 74-106 [facility] Comment on above: Result Comment: Fast ing Glucose result from 100 to 125 mg/dL suggests IMPAIRED HOMEOSTASIS per A.D.A. criteria. Performed By: #### L 100.0100, L500.2500 ####[facility] [address] [place], [address] Potassium [Moles/Vol] 3.8 mmol/L Normal 3.5-5.1 [facility] Comment on above: Performed By: #### L 100.0100, L500.2500 ####[facility] [address] [place], [address] Sodium [Moles/Vol] 139 mmol/L Normal 136-145 [facility] Comment on above: Performed By: #### L 100.0100, L500.2500 ####[facility] [address] [place], [address] Urea nitrogen [Mass/Vol] 6 mg/dL Low 7-18 [facility] Comment on above: Performed By: #### L 100.0100, L500.2500 ####[facility] [address] [place], [address] CBC W/Diff, Automatedon 10-2 Absolute Lymph 1.55 X10 3/uL Normal 0.83-4.51 [facility] Comment on above: Performed By: #### L 100.0100, L500.2500 ####[facility] [address] [place], [address] Absolute Neut 11.4 X10 3/uL High 2.0-7.7 [facility] Comment on above: Performed By: #### L 100.0100, L500.2500 ####[facility] [address] [place], [address] Basophils/100 WBC (Bld) 0.2 % Normal 0-1 [facility] Comment on above: Performed By: #### L 100.0100, L500.2500 ####[facility] [address] [place], [address] Eosinophils/100 WBC (Bld) 0.2 % Normal 0-5 [facility] Comment on above: Performed By: #### L 100.0100, L500.2500 ####[facility] [address] [place], [address] Erythrocyte distribution width (RBC) [Ratio] 14.5 % Normal 11.6-14.6 [facility] Comment on above: Performed By: #### L 100.0100, L500.2500 ####[facility] [address] [place], [address] Hematocrit (Bld) [Volume fraction] 44.9 % Normal 37-47 [facility] Comment on above: Performed By: #### L 100.0100, L500.2500 ####[facility] [address] [place], [address] Hemoglobin (Bld) [Mass/Vol] 14.4 g/dL Normal 12.0-15.0 [facility] Comment on above: Performed By: #### L 100.0100, L500.2500 ####[facility] [address] [place], [address] IG% 0.400 Normal 0.0-0.9 [facility] Comment on above: Result Comment: IG% - Immature Granulocytes (promyelocytes, myelocytes and metamyelocytes) > 1% indicates that a LEFT SHIFT is Present. Performed By: #### L 100.0100, L500.2500 ####[facility] [address] [place], [address] Lymphocytes/100 WBC (Bld) 11.2 % Low 19-41 [facility] Comment on above: Performed By: #### L 100.0100, L500.2500 ####[facility] [address] [place], [address] MCH (RBC) [Entitic mass] 27.1 pg Normal 27.0-32.0 [facility] Comment on above: Performed By: #### L 100.0100, L500.2500 ####[facility] [address] [place], [address] MCHC (RBC) [Mass/Vol] 32.1 g/dL Normal 32-36 [facility] Comment on above: Performed By: #### L 100.0100, L500.2500 ####[facility] [address] [place], [address] MCV (RBC) [Entitic vol] 84.6 fL Normal 81-99 [facility] Comment on above: Performed By: #### L 100.0100, L500.2500 ####[facility] [address] [place], [address] Monocytes/100 WBC (Bld) 5.9 % Normal 0-10 [facility] Comment on above: Performed By: #### L 100.0100, L500.2500 ####[facility] [address] [place], [address] Neutrophils/100 WBC (Bld) 82.1 % High 47-70 [facility] Comment on above: Performed By: #### L 100.0100, L500.2500 ####[facility] [address] [place], [address] Nucleated RBC (Bld) [#/Vol] 0 10*3/uL Normal 0-5 [facility] Comment on above: Performed By: #### L 100.0100, L500.2500 ####[facility] [address] [place], [address] Platelet mean volume (Bld) [Entitic vol] 11.0 fL Normal 6.2-12.0 [facility] Comment on above: Performed By: #### L 100.0100, L500.2500 ####[facility] [address] [place], [address] Platelets (Bld) [#/Vol] 276 10*3/uL Normal 150-450 [facility] Comment on above: Performed By: #### L 100.0100, L500.2500 ####[facility] [address] [place], [address] RBC (Bld) [#/Vol] 5.31 10*6/uL Normal 4.2-5.4 [facility] Comment on above: Performed By: #### L 100.0100, L500.2500 ####[facility] [address] [place], [address] RDW SD 44.4 fl High 35.1-43.9 [facility] Comment on above: Performed By: #### L 100.0100, L500.2500 ####[facility] [address] [place], [address] WBC (Bld) [#/Vol] 13.9 10*3/uL High 4.4-11.0 [facility] Comment on above: Performed By: #### L 100.0100, L500.2500 ####[facility] [address] [place], [address] Emergency Department Summary on 03-19-2024 Emergency Department Summary [facility] Medical Records Department [address] [place] [address] Emergency Department Summary 03/19/24 MR#: [id number] Acct: [id number] Name: MITZI LAWLER Rep #: [id number] : 1995 28 From: Rock Calvin DO [...] like this before. Patient's had prior cholecystectomy. [facility] Medical History (Updated 03/19/24 @ 09:50 [...] lumbar tend (more content not included)... Normal [facility] Urinalysis, Completeon 03-19 BACTERIA 1+ /hpf Normal None Seen [facility] Comment on above: Order Comment: COLLE CTOR TO SPECIFY Performed By: #### L 400.0001 #### [facility] [address] [place], [address] RBC 10-25 SEEN Normal 0-5 [facility] Comment on above: Order Comment: COLLE CTOR TO SPECIFY Performed By: #### L 400.0001 #### [facility] [address] [place], [address] EPI,SQUAMOUS 0-5 SEEN Normal 5-10 [facility] Comment on above: Order Comment: COLLE CTOR TO SPECIFY Performed By: #### L 400.0001 #### [facility] [address] [place], [address] WBC 25-50 SEEN Normal 0-5 [facility] Comment on above: Order Comment: COLLE CTOR TO SPECIFY Performed By: #### L 400.0001 #### [facility] [address] [place], [address] Mucus Ql (Urine sed) 0 SEEN Normal [facility] Comment on above: Order Comment: COLLE CTOR TO SPECIFY Performed By: #### L 400.0001 #### [facility] [address] [place], [address] CBC + DIFFon 03-04-2024 Baso # 0.05 x10EE3/UL Normal 0.00 - 0.10 [facility] Comment on above: Performed By: #### 2 22121 #### [facility],[address] [place] [address] Basophils/100 WBC (Bld) 0.5 % Normal 0.0 - 2.0 [facility] Comment on above: Performed By: #### 2 51650 #### [facility],[address] [place] [address] CBC + DIFF Normal [facility] Comment on above: Result Comment: CBC- COMPLETE BLOOD COUNT Performed By: #### 2 25695 #### [facility],[address] [place] [address] EO # 0.09 x10EE3/UL Normal 0.00 - 0.50 [facility] Comment on above: Performed By: #### 2 86228 #### [facility],[address] [place], [place] [address] Eosinophils/100 WBC (Bld) 0.9 % Normal 0.0 - 7.0 [facility] Comment on above: Performed By: #### 2 44600 #### [facility],[address] [place] [address] Erythrocyte distribution width (RBC) [Ratio] 14.1 % Normal 12.0 - 15.6 [facility] Comment on above: Performed By: #### 2 11554 #### [facility],[address] [place] [address] Hematocrit (Bld) [Volume fraction] 47.4 % High 34.0 - 46.0 [facility] Comment on above: Performed By: #### 2 25836 #### [facility],[address] [place] [address] Hemoglobin (Bld) [Mass/Vol] 15.4 g/dL Normal 12.0 - 16.0 [facility] Comment on above: Performed By: #### 2 12980 #### [facility],[address] [place] [address] Lymph # 2.61 x10EE3/UL Normal 0.80 - 2.80 [facility] Comment on above: Performed By: #### 2 78980 #### [facility],[address] [place] [address] Lymphocytes/100 WBC (Bld) 26.0 % Normal 20.0 - 45.0 [facility] Comment on above: Performed By: #### 2 50154 #### [place] [id number] MANUAL DIFF N/A Normal [facility] Comment on above: Performed By: #### 2 37123 #### [facility],[address] [place] [address] MCH (RBC) [Entitic mass] 27 pg Normal 27 - 33 [facility] Comment on above: Performed By: #### 2 33071 #### [facility],[address] [place] [address] MCHC 33 X10 3 Normal 32 - 36 [facility] Comment on above: Performed By: #### 2 47569 #### [facility],[address] [place] [address] 24041 MCV (RBC) [Entitic vol] 83 fL Normal 80 - 99 [facility] Comment on above: Performed By: #### 2 14801 #### [facility],[address] [place] [address] Crook # 0.62 x10EE3/UL Normal 0.20 - 1.00 [facility] Comment on above: Performed By: #### 2 43609 #### [facility],[address] [place] [address]89[address] MONOS % 6.2 % Normal 0.0 - 10.0 [facility] Comment on above: Performed By: #### 2 07723 #### [facility],[address] [place] [address] 636[address] Morphology Ayan (Bld) [Interp] N/A Normal [facility] Comment on above: Performed By: #### 2 13119 #### [facility],[address] [place] [address] 92792 Neut # 6.66 x10EE3/UL Normal 1.50 - 7.10 [facility] Comment on above: Performed By: #### 2 41222 #### [facility],[address] [place] [address] Neutrophils/100 WBC (Bld) 66.4 % Normal 46.0 - 76.0 [facility] Comment on above: Performed By: #### 2 09069 #### [facility],[address] [place] [address]70[address] PLATELET 291 x10EE3/UL Normal 150 - 450 [facility] Comment on above: Performed By: #### 2 05969 #### [facility],[address] [place] [address]695 Platelet mean volume (Bld) [Entitic vol] 8.6 fL Normal 6.6 - 10.5 [facility] Comment on above: Result Comment: AUTO MATED DIFFERENTIAL Performed By: #### 2 55610 #### [facility],[address] [place] [address] 04641 RBC 5.71 x 10EE6/UL High 4.10 - 5.30 [facility] Comment on above: Performed By: #### 2 89534 #### [facility],[address] [place] [address] 56024 WBC 10.0 x 10EE3/UL Normal 4.5 - 10.8 [facility] Comment on above: Performed By: #### 2 77038 #### [facility],[address] [place], [place] [address] CMP with eGFRon 03-04-2024 AGE 28 years Normal [facility] Comment on above: Performed By: #### 2 85455 #### [facility],[address] [place] [address] 86125 Albumin [Mass/Vol] 3.6 g/dL Normal 3.4 - 5.0 [facility] Comment on above: Performed By: #### 2 96890 #### [facility],[address] [place] [address] 98146 Albumin/Globulin [Mass ratio] 0.8 {ratio} Low 0.9 - 1.6 [facility] Comment on above: Performed By: #### 2 66558 #### [facility],[address],[place] [address] ALK PHOS 119 U/L High 46 - 116 [facility] Comment on above: Performed By: #### 2 32771 #### [facility],[address] [place] [address] 91194 ALT [Catalytic activity/Vol] 11 U/L Low 16 - 63 [facility] Comment on above: Performed By: #### 2 04442 #### [facility],[address] [place] [address] 90149 Anion gap [Moles/Vol] 15 mmol/L Normal 10 - 20 [facility] Comment on above: Performed By: #### 2 70520 #### [facility],[address] [place], [place] [address] AST [Catalytic activity/Vol] 20 U/L Normal 13 - 39 [facility] Comment on above: Performed By: #### 2 64442 #### [facility],[address] [place], [place] [address] B/C RATIO 5 ratio Normal 0 - 30 [facility] Comment on above: Performed By: #### 2 31151 #### [facility],[address] [place] [address] 77158 Bilirubin [Mass/Vol] 0.6 mg/dL Normal 0.2 - 1.0 [facility] Comment on above: Performed By: #### 2 50676 #### [facility],[address] [place] [address] 77663 Calcium [Mass/Vol] 8.9 mg/dL Normal 8.5 - 10.1 [facility] Comment on above: Performed By: #### 2 03295 #### [facility],[address] [place] [address]302 Chloride [Moles/Vol] 103 mmol/L Normal 98 - 107 [facility] [facility] Comment on above: Performed By: #### 2 50219 #### [facility],[address] [place] [address] 16241 CMP with eGFR Normal [facility] Comment on above: Result Comment: COMP REHENSIVE METABOLIC PANEL Performed By: #### 2 79635 #### [facility],[address] [place] [address] 51716 CO2 [Moles/Vol] 27.6 mmol/L Normal 21.0 - 32.0 [facility] Comment on above: Performed By: #### 2 46539 #### [facility],[address] [place] [address] 10685 Creatinine [Mass/Vol] 0.73 mg/dL Normal 0.55 - 1.02 [facility] Comment on above: Performed By: #### 2 69369 #### [facility],[address] [place], [place] [address] GFR/1.73 sq M.predicted among non-blacks MDRD (S/P/Bld) [Vol rate/Area] mL/min/{1.73_m2} Normal 60 - 999 [facility] Comment on above: Performed By: #### 2 32365 #### [facility],[address] [place], [place] [address] Result Comment: ACCO RDING TO THE NATIONAL KIDNEY DISEASE EDUCATION PROGRAM(NKDE), A NORMAL eGFR IS A VALUE GREATER THAN OR EQUAL TO 60 ML/MIN/1.73 SQ METERS. CHRONIC KIDNEY DISEASE: <60mL/MIN/1.73 SQ METERS KIDNEY FAILURE: <15mL/MIN/1.73 SQ METERS THIS TEST SHOULD ONLY BE USED FOR PATIENTS 18 YEARS OF AGE AND OLDER. Globulin (S) [Mass/Vol] 4.5 g/dL High 1.5 - 3.8 [facility] Comment on above: Performed By: #### 2 41862 #### [facility],[address] [place] [address] 40195 Glucose [Mass/Vol] 90 mg/dL Normal 74 - 106 [facility] Comment on above: Performed By: #### 2 70159 #### [facility],[address] [place] [address] 01868 Potassium [Moles/Vol] 3.2 mmol/L Low 3.5 - 5.1 [facility] Comment on above: Performed By: #### 2 51702 #### [facility],[address] [place] [address] 83775 Protein [Mass/Vol] 8.1 g/dL Normal 6.4 - 8.2 [facility] Comment on above: Performed By: #### 2 66954 #### [facility],[address] [place] [address] 13750 Sodium [Moles/Vol] 142 mmol/L Normal 136 - 145 [facility] Comment on above: Performed By: #### 2 20278 #### [facility],[address] [place] [address] 89370 Urea nitrogen [Mass/Vol] 4 mg/dL Low 7 - 18 [facility] Comment on above: Performed By: #### 2 02930 #### [facility],[address] [place] [address] ABDOMEN/PELVIS Won 2023 CT ABDOMEN/PELVIS W [place] [address] Patient: MITZI LAWLER Phone#: : 1995 Age: 28 Gender: F Pt. Type: ER Account: [id number] Location: [facility] Ordering: ISMA RECINOS Exam Date: 03/04/2024/14:55 Family Phys: Charge Code: 890804 Physician: Hudspeth Order #: [id number] Dose#: 31.6 PROCEDURE: CT ABDOMEN/PELVIS WITH CONTRAST COMPARISON: [facility], CT, ABDOMEN/PELVIS W CON, 11/26/2023, 0:40. [...] 28 Gender: F Pt. Type: ER Account: [id number] Location: [facility] Ordering: ISMA RECINOS Exam Date: 03/04/2024/14:55 Family Phys: Charge Code: 813326 Physician: Hudspeth Order #: [id number] Dose#: 31.6 CONCLUSION: 1. No acute intra-abdominal or pelvic abnormality. 2. Fatty infiltration of the ascending colon, this can be seen with sequela of inflammatory bowel disease versus incidental finding. Dictated by: Britt Tarango MD on 03/04/2024 at 15:14 Approved by: Britt Tarango MD on 03/04/2024 at 15:24 Normal [facility] FACILITY CODING SUMMARYon FACILITY CODING SUMMARY Facility Coding Facility Coding Summary [facility] [address] [place] [address] [id number] 03/04/2024 Patient: MITZI LAWLER Sex: Female : [...] from Providers: Procedures from Nurses/Facility: SUPPLIES ELEVEL 56568-73 1 of 2 Facility Coding This is a partial abstract of information documented in the full record. Security Vehicle Patrol Officer must use independent judgment in selecting codes. CPT copyright 2022 [employer]. All Rights Reserved. 2 of 2 Normal [facility] LIPASEon 03-04-2024 Lipase [Catalytic activity/Vol] 29.0 U/L Normal 15.0 - 78.0 [facility] Comment on above: Result Comment: *PLE ASE NOTE THAT RANGES FOR LIPASE HAVE CHANGED OF 05/25/23 DUE TO AN ASSAY UPDATE BY THE LEAD DATA ARCHITECT.THE NEW ASSAY RANGE IS 6-250 U/L, WITH A REFERENCE RANGE OF 16-77 U/L. Performed By: #### 2 56718 #### [facility],[address] [place] [address] MED ADMINISTRATION DETAILon 03-04-2024 MED ADMINISTRATION DETAIL Analytical Lab Analyst [place] [address] [id number] 03/04/2024 Patient: MITZI LAWLER Sex: Female : 1995 Age: 28y MEASUREMENTS: Wt: 93.0 kg, Ht/Lance: 62.0 in, BMI: 37.49 ALLERGIES: Penicillins Medication Ordered Medication Administration Date/Time 1 of 1 Normal [facility] NURSES CLINICAL REPORT (NOTE S)on 03-04-2024 NURSES CLINICAL REPORT (NOTES) Nurse Narrative [place] [address] [id number] 03/04/2024 Patient: MITZI LAWLER Sex: Female : [...] at this time). -- 14:14 03/04/24 EDT Mairam Maxwell R.N. 14:18 03/04/24. Site #1 started [...] Mariam Luevano (more content not included)... Normal [facility] ORDER SHEET (CPOE ONLY)on ORDER SHEET (CPOE ONLY) Order Sheet Order Sheet [address] [address] [id number] 03/04/2024 Patient: MITZI LAWLER Sex: Female : [...] R[place] Order Comments: 14:06 03/04/2024: Status: Unknown. Imsa Recinos D.O. Reason for Study: Abdominal Internal Pain STAFF ORDERS Order Description Priority Entered Acknowledged Collected Completed IV Saline Lock 14:06 03/04/2024 14:11 03/04/2024 14:18 03/04/2024 Mariam Ornelas Shauna Ewing, D.O. R.N. R.NVeronica [Electronically signed by Isma Recinos D.O. (03/04/2024 18:50 EDT)] 2 of 2 Normal [facility] PHYS CLINICAL REPORT AND ADD ENon 03-04-2024 PHYS CLINICAL REPORT AND ADDEN Narrative Physician Clinical [address] [address] [id number] 03/04/2024 Patient: MITZI LAWLER [facility]#: [id number] Sex: Female : 1995 Age: 28y Disposition: [...] 1.50 - 7.10 Final EDT 03/04/2024 14:46 [place] # 0.62 x10/UL 0.20 - 1.00 Final [...] 78.0 Final UPDATE BY THE 16:19 EDT LEAD DATA ARCHITECT.THE NEW ASSAY RANGE IS 6-250 U/L, WITH [...] Final Abnor (more content not included)... Normal [facility] PHYS CODING SUMMARY DIGITAL ASSET COORDINATOR AB [place] 03-04-2024 PHYS CODING SUMMARY DIGITAL ASSET COORDINATOR ABST Coding Summary Coding Summary [address] [place] [address] [id number] 03/04/2024 Patient: MITZI LAWLER Sex: Female : 1995 Age: 28y ICD-10 Codes R10.84: Generalized abdominal pain R10.84: Generalized abdominal pain This is a partial abstract of information documented in the full record. Security Vehicle Patrol Officer must use independent judgment in selecting codes. CPT copyright 2022 [employer]. All Rights Reserved. 1 of 1 Normal [facility] URINEon 03-04-2024 Beta HCG ( test) Ql (U) Negative Normal NEGATIVE [facility] Comment on above: Performed By: #### 2 93057 #### [facility],[address] [place] [address] EXTERNAL QC DONE? YES Normal [facility] Comment on above: Performed By: #### 2 01442 #### [facility],[address] [place] [address] INTERNAL QC PASS [facility] Comment on above: Performed By: #### 2 53675 #### [facility],[address] [place] [address] URINALYSISon 03-04-2024 Amorphous 2+ Normal [facility] Comment on above: Performed By: #### 2 02012 #### [facility],[address] [place] [address] Bacteria 1+ Normal [facility] Comment on above: Performed By: #### 2 57663 #### [facility],[address] [place] [address] 77452 Bilirubin Ql (U) Negative Normal NORMAL: NEGATIVE [facility] Comment on above: Performed By: #### 2 58324 #### [facility],[address] [place] [address] 95334 Casts NONE Normal [facility] Comment on above: Performed By: #### 2 82076 #### [facility],[address] [place] [address] 16331 Clarity (U) SL. CLOUDY Abnormal NORMAL: CLEAR [facility] Comment on above: Performed By: #### 2 40761 #### [facility],[address] [place] [address] 01480 Color (U) YELLOW Normal NORMAL: YELLOW [facility] Comment on above: Performed By: #### 2 36082 #### [facility],[address] [place] [address] 72124 Crystals LM Nom (Urine sed) NONE Normal [facility] Comment on above: Performed By: #### 2 24610 #### [facility],[address] [place] [address] 13881 Epi Cells FEW Normal [facility] Comment on above: Performed By: #### 2 47264 #### [facility],[address] [place] [address] ERROR DUE TO TECH ERROR Normal [facility] Comment on above: Performed By: #### 2 79303 #### [facility],[address] [place] [address] 05424 Glucose Ql (U) NORM Normal NORMAL: NORMAL [facility] Comment on above: Performed By: #### 2 64508 #### [facility],[address] [place] [address] 33265 Hemoglobin Ql (U) Negative Normal NORMAL: NEGATIVE [facility] Comment on above: Performed By: #### 2 49580 #### [facility],[address] [place] [address] 47992 Ketone 15 Abnormal NORMAL: NEGATIVE [facility] Comment on above: Performed By: #### 2 76449 #### [facility],[address] [place] [address] 73894 Leukocytes 25 Abnormal NORMAL: NEGATIVE [facility] Comment on above: Performed By: #### 2 91146 #### [facility],[address] [place] [address] 37450 Mucous NONE Normal [facility] Comment on above: Performed By: #### 2 39260 #### [facility],[address] [place] [address] 60747 Nitrite Ql (U) Negative Normal NORMAL: NEGATIVE [facility] Comment on above: Performed By: #### 2 45926 #### [facility],[address] [place] [address] pH (U) 6.0 [pH] Normal NORMAL: 5.0-8.0 [facility] Comment on above: Performed By: #### 2 47728 #### [facility],[address] [place] [address] Protein Ql (U) 15 Abnormal NORMAL: NEGATIVE [facility] Comment on above: Performed By: #### 2 14822 #### [facility],[address] [place] [address] Rbc NONE Normal 0-3/hpf [facility] Comment on above: Performed By: #### 2 76256 #### [facility],[address] [place] [address] Sp [place] 1.020 Normal NORMAL: 1.010-1.030 [facility] Comment on above: Performed By: #### 2 12667 #### [facility],[address] [place] [address] Specimen Type R Normal [facility] Comment on above: Performed By: #### 2 93715 #### [facility],[address] [place] [address] Urinalysis dipstick W Reflex Microscopic panel (U) SEE BELOW Normal [facility] Comment on above: Result Comment: MICR OSCOPIC Performed By: #### 2 80185 #### [facility],[address] [place] [address] Urobilinog 4 Abnormal NORMAL: NORMAL [facility] Comment on above: Performed By: #### 2 51989 #### [facility],[address] [place] [address] Wbc 6-10 Normal 0-5/hpf [facility] Comment on above: Performed By: #### 2 80119 #### [facility],[address] [place] [address] Yeast RARE Normal [facility] Comment on above: Result Comment: ==== [...] 03/04/24.1547.MG . M Performed By: #### 2 89633 #### [facility],[address] [place] [address] 26997 VISIT SUMMARYon 03-04-2024 VISIT SUMMARY Visit Overview Visit Overview [address] [place] [address] [id number] 03/04/2024 Patient: MITZI LAWLER Sex: Female : [...] GENERALIZED ABDOMINAL PAIN 3 of 3 Normal [facility] CBC + DIFFon 11-26-2023 Baso # 0.03 x10EE3/UL Normal 0.00 - 0.10 [facility] Comment on above: Performed By: #### 2 97185 #### [facility],[address] [place], [place] [address] Basophils/100 WBC (Bld) 0.2 % Normal 0.0 - 2.0 [facility] Comment on above: Performed By: #### 2 52055 #### [facility],[address] [place] [address] CBC + DIFF Normal [facility] Comment on above: Result Comment: CBC- COMPLETE BLOOD COUNT Performed By: #### 2 85256 #### [facility],[address] [place] [address] 52190 EO # 0.20 x10EE3/UL Normal 0.00 - 0.50 [facility] Comment on above: Performed By: #### 2 61245 #### [facility],[address] [place] [address] Eosinophils/100 WBC (Bld) 1.7 % Normal 0.0 - 7.0 [facility] Comment on above: Performed By: #### 2 33101 #### [place] [address] Erythrocyte distribution width (RBC) [Ratio] 14.6 % Normal 12.0 - 15.6 [facility] Comment on above: Performed By: #### 2 11789 #### [facility],[address] [place] [address] Hematocrit (Bld) [Volume fraction] 42.9 % Normal 34.0 - 46.0 [facility] Comment on above: Performed By: #### 2 70381 #### [facility],[address] [place], [place] [address] Hemoglobin (Bld) [Mass/Vol] 14.3 g/dL Normal 12.0 - 16.0 [facility] Comment on above: Performed By: #### 2 71449 #### [facility],[address] [place] [address] 54383 Lymph # 3.53 x10EE3/UL High 0.80 - 2.80 [facility] Comment on above: Performed By: #### 2 36897 #### [facility],[address] [place], [place] [address] Lymphocytes/100 WBC (Bld) 30.5 % Normal 20.0 - 45.0 [facility] Comment on above: Performed By: #### 2 09519 #### [facility],[address] [place] [address] MANUAL DIFF N/A Normal [facility] Comment on above: Performed By: #### 2 07537 #### [facility],[address] [place] [address] MCH (RBC) [Entitic mass] 27 pg Normal 27 - 33 [facility] Comment on above: Performed By: #### 2 99134 #### [facility],[address] [place] [address] MCHC 33 X10 3 Normal 32 - 36 [facility] Comment on above: Performed By: #### 2 46571 #### [facility],[address] [place] [address] MCV (RBC) [Entitic vol] 82 fL Normal 80 - 99 [facility] Comment on above: Performed By: #### 2 33324 #### [facility],[address] [place] [address] Crook # 0.82 x10EE3/UL Normal 0.20 - 1.00 [facility] Comment on above: Performed By: #### 2 19514 #### [facility],[address] [place] [address] MONOS % 7.1 % Normal 0.0 - 10.0 [facility] Comment on above: Performed By: #### 2 72253 #### [facility],[address] [place] [address] Morphology Ayan (Bld) [Interp] N/A Normal [facility] Comment on above: Performed By: #### 2 03355 #### [facility],[address] [place] [address] Neut # 7.02 x10EE3/UL Normal 1.50 - 7.10 [facility] Comment on above: Performed By: #### 2 37201 #### [facility],[address],[place] [address] Neutrophils/100 WBC (Bld) 60.5 % Normal 46.0 - 76.0 [facility] Comment on above: Performed By: #### 2 16304 #### [facility],[address] [place] [address] 45852 PLATELET 284 x10EE3/UL Normal 150 - 450 [facility] Comment on above: Performed By: #### 2 61985 #### [facility],[address] [place], [place] [address] Platelet mean volume (Bld) [Entitic vol] 8.4 fL Normal 6.6 - 10.5 [facility] Comment on above: Result Comment: AUTO MATED DIFFERENTIAL Performed By: #### 2 61134 #### [facility],[address] [place] [address] RBC 5.24 x 10EE6/UL Normal 4.10 - 5.30 [facility] Comment on above: Performed By: #### 2 88727 #### [facility],[address] [place] [address] WBC 11.6 x 10EE3/UL High 4.5 - 10.8 [facility] Comment on above: Performed By: #### 2 12562 #### [facility],[address] [place] [address] 90148 CMP with eGFRon 11-26-2023 AGE 28 years Normal [facility] Comment on above: Performed By: #### 2 61171 #### [facility],[address] [place] [address] 10379 Albumin [Mass/Vol] 3.3 g/dL Low 3.4 - 5.0 [facility] Comment on above: Performed By: #### 2 54956 #### [facility],[address] [place] [address] 98261 Albumin/Globulin [Mass ratio] 0.8 {ratio} Low 0.9 - 1.6 [facility] Comment on above: Performed By: #### 2 83688 #### [facility],[address] [place] [address] 30920 ALK PHOS 104 U/L Normal 46 - 116 [facility] Comment on above: Performed By: #### 2 65356 #### [facility],[address] [place] [address] 03530 ALT [Catalytic activity/Vol] 9 U/L Low 16 - 63 [facility] Comment on above: Performed By: #### 2 45790 #### [facility],[address] [place] [address] 43766 Anion gap [Moles/Vol] 12 mmol/L Normal 10 - 20 [facility] Comment on above: Performed By: #### 2 87297 #### [facility],[address] [place] [address] 24221 AST [Catalytic activity/Vol] 12 U/L Low 13 - 39 [facility] Comment on above: Performed By: #### 2 74374 #### [facility],[address] [place] [address] 90245 B/C RATIO 10 ratio Normal 0 - 30 [facility] Comment on above: Performed By: #### 2 56201 #### [facility],[address] [place] [address] 79690 Bilirubin [Mass/Vol] 0.2 mg/dL Normal 0.2 - 1.0 [facility] Comment on above: Performed By: #### 2 91514 #### [facility],[address] [place] [address] 27958 Calcium [Mass/Vol] 9.4 mg/dL Normal 8.5 - 10.1 [facility] Comment on above: Performed By: #### 2 01698 #### [facility],[address] [place] [address] 72505 Chloride [Moles/Vol] 102 mmol/L Normal 98 - 107 [facility] Comment on above: Performed By: #### 2 36792 #### [facility],[address] [place] [address] 08872 CMP with eGFR Normal [facility] Comment on above: Result Comment: COMP REHENSIVE METABOLIC PANEL Performed By: #### 2 56674 #### [facility],[address] [place] [address] 79473 CO2 [Moles/Vol] 27.3 mmol/L Normal 21.0 - 32.0 [facility] Comment on above: Performed By: #### 2 99462 #### [facility],[address] [place] [address] 54745 Creatinine [Mass/Vol] 0.77 mg/dL Normal 0.55 - 1.02 [facility] Comment on above: Performed By: #### 2 19397 #### [facility],[address] [place] [address] 85591 GFR/1.73 sq M.predicted among non-blacks MDRD (S/P/Bld) [Vol rate/Area] mL/min/{1.73_m2} Normal 60 - 999 [facility] Comment on above: Performed By: #### 2 04704 #### [facility],[address] [place] [address] 22423 Result Comment: ACCO RDING TO THE NATIONAL KIDNEY DISEASE EDUCATION PROGRAM(NKDE), A NORMAL eGFR IS A VALUE GREATER THAN OR EQUAL TO 60 ML/MIN/1.73 SQ METERS. CHRONIC KIDNEY DISEASE: <60mL/MIN/1.73 SQ METERS KIDNEY FAILURE: <15mL/MIN/1.73 SQ METERS THIS TEST SHOULD ONLY BE USED FOR PATIENTS 18 YEARS OF AGE AND OLDER. Globulin (S) [Mass/Vol] 3.9 g/dL High 1.5 - 3.8 [facility] Comment on above: Performed By: #### 2 30141 #### [facility],[address] [place] [address] 05591 Glucose [Mass/Vol] 107 mg/dL High 74 - 106 [facility] Comment on above: Performed By: #### 2 33641 #### [facility],[address] [place] [address] 88571 Potassium [Moles/Vol] 3.2 mmol/L Low 3.5 - 5.1 [facility] Comment on above: Performed By: #### 2 81213 #### [facility],[address] [place] [address] 49483 Protein [Mass/Vol] 7.2 g/dL Normal 6.4 - 8.2 [facility] Comment on above: Performed By: #### 2 34376 #### [facility],[address] [place] [address] 27762 Sodium [Moles/Vol] 138 mmol/L Normal 136 - 145 [facility] Comment on above: Performed By: #### 2 06336 #### [facility],[address] [place] [address] 72016 Urea nitrogen [Mass/Vol] 8 mg/dL Normal 7 - 18 [facility] Comment on above: Performed By: #### 2 85391 #### [facility],[address] [place] [address] ABDOMEN/PELVIS [facility] 2023 CT ABDOMEN/PELVIS [place] [address] Patient: MITZI LAWLER Phone#: : 1995 Age: 28 Gender: F Pt. Type: ER Account: [id number] Location: [facility] Ordering: DR. GRACIE SHARMA Exam Date: 11/26/2023/0:40 Family Phys: Charge Code: [id number] Physician: Hudspeth Order #: [id number] Dose#: 33.4 PROCEDURE: CT ABDOMEN/PELVIS WITH CONTRAST [...] 28 Gender: F Pt. Type: ER Account: [id number] Location: [facility] Ordering: DR. GRACIE SHARMA Exam Date: 11/26/2023/0:40 Family Phys: Charge Code: [id number] Physician: Hudspeth Order #: [id number] Dose#: 33.4 CONCLUSION: 1. There is no evidence of acute abdominal or pelvic abnormality. Dictated by: Paola Seth MD on 11/26/2023 at 14:31 Approved by: Paola Seth MD on 11/26/2023 at 14:36 Normal [facility] LIPASEon 11-26-2023 Lipase [Catalytic activity/Vol] 39.0 U/L Normal 15.0 - 78.0 [facility] Comment on above: Result Comment: *PLE ASE NOTE THAT RANGES FOR LIPASE HAVE CHANGED OF 05/25/23 DUE TO AN ASSAY UPDATE BY THE LEAD DATA ARCHITECT.THE NEW ASSAY RANGE IS 6-250 U/L, WITH A REFERENCE RANGE OF 16-77 U/L. Performed By: #### 2 17718 #### [facility],[address] [place], [place] [id number] URINEon 11-26-2023 Beta HCG ( test) Ql (U) Negative Normal NEGATIVE [facility] Comment on above: Performed By: #### 2 41293 ####[facility],[address] [place] [address] EXTERNAL QC DONE? YES Normal [facility] Comment on above: Performed By: #### 2 97985 ####[facility],[address] [place] [address] INTERNAL QC PASS Normal [facility] Comment on above: Performed By: #### 2 24734 ####[facility],[address] [place] [address] URINALYSISon 11-26-2023 Amorphous NONE Normal [facility] Comment on above: Performed By: #### 2 55684 ####[facility],[address] [place] [address] Bacteria 1+ Normal [facility] Comment on above: Performed By: #### 2 75640 ####[facility],[address] [place] [address] 56218 Bilirubin Ql (U) Negative Normal NORMAL: NEGATIVE [facility] Comment on above: Performed By: #### 2 93043 ####[facility],[address] [place], [place] [phone] Casts NONE Normal [facility] Comment on above: Performed By: #### 2 60576 ####[facility],[address] [place], [place] [phone] Clarity (U) sl.cloudy Normal NORMAL: CLEAR [facility] Comment on above: Performed By: #### 2 95564 ####[facility],[address] [place], [place] [phone] Color (U) yellow Normal NORMAL: YELLOW [facility] Comment on above: Performed By: #### 2 67630 ####[facility],[address] [place] [address] 67177 Crystals LM Nom (Urine sed) NONE Normal [facility] Comment on above: Performed By: #### 2 54311 ####[facility],[address] [place] [address] 60798 Epi Cells FEW Normal [facility] Comment on above: Performed By: #### 2 36098 ####[facility],[address] [place] [address] 26279 Glucose Ql (U) NORM Normal NORMAL: NORMAL [facility] Comment on above: Performed By: #### 2 03882 ####[facility],[address] [place] [address] 69031 Hemoglobin Ql (U) 10 Abnormal NORMAL: NEGATIVE [facility] Comment on above: Performed By: #### 2 76443 ####[facility],[address] [place] [address] 65862 Ketone Negative Normal NORMAL: NEGATIVE [facility] Comment on above: Performed By: #### 2 01978 ####[facility],[address] [place] [address] 44097 Leukocytes 500 Abnormal NORMAL: NEGATIVE [facility] Comment on above: Performed By: #### 2 16871 ####[facility],[address] [place] [address] 71208 Mucous 1+ Normal [facility] Comment on above: Performed By: #### 2 12977 ####[facility],[address] [place] [address] 25555 Nitrite Ql (U) Negative Normal NORMAL: NEGATIVE [facility] Comment on above: Performed By: #### 2 69125 ####[facility],[address] [place] [address] 02751 pH (U) 6 [pH] Normal NORMAL: 5.0-8.0 [facility] Comment on above: Performed By: #### 2 30977 ####[facility],[address] [place] [address] Protein Ql (U) 15 Abnormal NORMAL: NEGATIVE [facility] Comment on above: Performed By: #### 2 82035 ####[facility],[address] [place] [address] Rbc 0-5 Normal 0-3/hpf [facility] Comment on above: Performed By: #### 2 29629 ####[facility],[address] [place] [address] Sp [place] 1.015 Normal NORMAL: 1.010-1.030 [facility] Comment on above: Performed By: #### 2 39606 ####[facility],[address] [place] [address] Specimen Type Clean catch Normal [facility] Comment on above: Performed By: #### 2 06273 ####[facility],[address] [place] [address] Urinalysis dipstick W Reflex Microscopic panel (U) SEE BELOW Normal [facility] Comment on above: Result Comment: MICR OSCOPIC Performed By: #### 2 82364 ####[facility],[address] [place] [address] Urobilinog 1 Abnormal NORMAL: NORMAL [facility] Comment on above: Performed By: #### 2 02082 ####[facility],[address] [place] [address] Wbc 11-15 Normal 0-5/hpf [facility] Comment on above: Performed By: #### 2 23588 ####[facility],[address] [place] [address] Yeast NONE Normal [facility] Comment on above: Performed By: #### 2 82271 ####[facility],[address] [place] [address] Abdomen/Pelvis W IV Cont ONL Yon 06-15-2023 Abdomen/Pelvis W IV Cont ONLY [facility] Imaging Services [address] [place] [address] Abdomen/Pelvis W IV Cont ONLY MR#: [id number] Acct: [id number] Name: MITZI LAWLER Rep #: [id number] : 1995 F 28 From: Angelia Gonzalez PCP: Care Physician,No Primary Status: REG ER Study: Abdomen/Pelvis W IV Cont ONLY Date of Exam: Exam# [id number] Ordering Dr: Myron Machuca DO -[id number] EXAM: CT Abdomen And Pelvis W/ [...] Myron Machuca, DO; No Primary Care Physician Loom Repairer: Signed Normal [facility] Absolute lymphocyte countOrd ered By: Myron Machuca on 06-15-2023 Lymphocytes Auto (Unsp spec) [#/Vol] 3.10 10*3/uL 0.83-4.51 [facility] Automated lymphocyte count a s percentage of total leukocytesOrdered By: Myron Machuca on 06-15-2023 Lymphocytes/100 WBC Auto (Unsp spec) 25.5 % 19-41 [facility] Basic Metabolic Profile (BMP )on 06-15-2023 BUN/CRE 8.6 RATIO Low 10-20 [facility] Comment on above: Performed By: #### L 100.0100, L700.6800, L500.2500 #### [facility] [address] [place], [address] CA,Total 9.5 mg/dL Normal 8.5-10.1 [facility] Comment on above: Performed By: #### L 100.0100, L700.6800, L500.2500 #### [facility] [address] [place], [address] Chloride [Moles/Vol] 107 mmol/L Normal 98-107 [facility] Comment on above: Performed By: #### L 100.0100, L700.6800, L500.2500 #### [facility] [address] [place], [address] CO2 [Moles/Vol] 26.0 mmol/L Normal 21.0-32.0 [facility] Comment on above: Performed By: #### L 100.0100, L700.6800, L500.2500 #### [facility] [address] [place], [address] Creatinine [Mass/Vol] 0.58 mg/dL Normal 0.55-1.02 [facility] Comment on above: Result Comment: The validity of the calculated GFR GFRAA in patients over 70 years has not been determined. Clinical correlation is essential. Performed By: #### L 100.0100, L700.6800, L500.2500 #### [facility] [address] [place], [address] ECRCL 161.90 ml/min Normal [facility] Comment on above: Performed By: #### L 100.0100, L700.6800, L500.2500 #### [facility] [address] [place], [address] EST GFR - AA 159 mL/min Normal >60 [facility] Comment on above: Result Comment: Afri can Vietnamese GFR Calc Performed By: #### L 100.0100, L700.6800, L500.2500 #### [facility] [address] [place], [address] GAP 6 Normal 5-15 [facility] Comment on above: Performed By: #### L 100.0100, L700.6800, L500.2500 #### [facility] [address] [place], [address] GFR/1.73 sq M.predicted among non-blacks MDRD (S/P/Bld) [Vol rate/Area] 131 mL/min/{1.73_m2} Normal >60 [facility] Comment on above: Result Comment: Non- GFR Calc Performed By: #### L 100.0100, L700.6800, L500.2500 #### [facility] [address] [place], [address] Glucose [Mass/Vol] 103 mg/dL Normal 74-106 [facility] Comment on above: Result Comment: Fast ing Glucose result from 100 to 125 mg/dL suggests IMPAIRED HOMEOSTASIS per A.D.A. criteria. Performed By: #### L 100.0100, L700.6800, L500.2500 #### [facility] [address] [place], [address] Potassium [Moles/Vol] 3.5 mmol/L Normal 3.5-5.1 [facility] Comment on above: Performed By: #### L 100.0100, L700.6800, L500.2500 #### [facility] [address] [place], [address] Sodium [Moles/Vol] 139 mmol/L Normal 136-145 [facility] Comment on above: Performed By: #### L 100.0100, L700.6800, L500.2500 #### [facility] [address] [place], [address] Urea nitrogen [Mass/Vol] 5 mg/dL Low 7-18 [facility] Comment on above: Performed By: #### L 100.0100, L700.6800, L500.2500 #### [facility] [address] [place], [address] Basophil percentageOrdered B y: Myron Machuca on 06-15-2023 Basophils/100 WBC (Bld) 0.5 % 0-1 [facility] Chloride [Moles/Vol] 107 mmol/L 98-107 [facility] Eosinophils/100 WBC (Bld) 0.8 % 0-5 [facility] Glucose [Mass/Vol] 103 mg/dL 74-106 [facility] Comment on above: Fasting Glucose resu lt from 100 to 125 mg/dL suggests IMPAIRED HOMEOSTASIS per A.D.A. criteria. Hemoglobin (Bld) [Mass/Vol] 13.5 g/dL 12.0-15.0 [facility] Monocytes/100 WBC (Bld) 5.3 % 0-10 [facility] Neutrophils (Bld) [#/Vol] 8.2 10*3/uL 2.0-7.7 [facility] Neutrophils/100 WBC (Bld) 67.4 % 47-70 [facility] Potassium [Moles/Vol] 3.5 mmol/L 3.5-5.1 [facility] Sodium [Moles/Vol] 139 mmol/L 136-145 [facility] WBC (Bld) [#/Vol] 12.2 10*3/uL 4.4-11.0 [facility] CBC W/Diff, Automatedon 05-28 Absolute Lymph 3.10 X10 3/uL Normal 0.83-4.51 [facility] Comment on above: Performed By: #### L 100.0100, L700.6800, L500.2500 #### [facility] [address] [place], [address] Absolute Neut 8.2 X10 3/uL High 2.0-7.7 [facility] Comment on above: Performed By: #### L 100.0100, L700.6800, L500.2500 #### [facility] [address] [place], [address] Basophils/100 WBC (Bld) 0.5 % Normal 0-1 [facility] Comment on above: Performed By: #### L 100.0100, L700.6800, L500.2500 #### [facility] [address] [place], [address] Eosinophils/100 WBC (Bld) 0.8 % Normal 0-5 [facility] Comment on above: Performed By: #### L 100.0100, L700.6800, L500.2500 #### [facility] [address] [place], [address] Erythrocyte distribution width (RBC) [Ratio] 15.4 % High 11.6-14.6 [facility] Comment on above: Performed By: #### L 100.0100, L700.6800, L500.2500 #### [facility] [address] [place], [address] Hematocrit (Bld) [Volume fraction] 44.7 % Normal 37-47 [facility] Comment on above: Performed By: #### L 100.0100, L700.6800, L500.2500 #### [facility] [address] [place], [address] Hemoglobin (Bld) [Mass/Vol] 13.5 g/dL Normal 12.0-15.0 [facility] Comment on above: Performed By: #### L 100.0100, L700.6800, L500.2500 #### [facility] [address] [place], [address] IG% 0.500 Normal 0.0-0.9 [facility] Comment on above: Result Comment: IG% - Immature Granulocytes (promyelocytes, myelocytes and metamyelocytes) > 1% indicates that a LEFT SHIFT is Present. Performed By: #### L 100.0100, L700.6800, L500.2500 #### [facility] [address] [place], [address] Lymphocytes/100 WBC (Bld) 25.5 % Normal 19-41 [facility] Comment on above: Performed By: #### L 100.0100, L700.6800, L500.2500 #### [facility] [address] [place], [address] MCH (RBC) [Entitic mass] 24.8 pg Low 27.0-32.0 [facility] Comment on above: Performed By: #### L 100.0100, L700.6800, L500.2500 #### [facility] [address] [place], [address] MCHC (RBC) [Mass/Vol] 30.2 g/dL Low 32-36 [facility] Comment on above: Performed By: #### L 100.0100, L700.6800, L500.2500 #### [facility] [address] [place], [address] MCV (RBC) [Entitic vol] 82.0 fL Normal 81-99 [facility] Comment on above: Performed By: #### L 100.0100, L700.6800, L500.2500 #### [facility] [address] [place], [address] Monocytes/100 WBC (Bld) 5.3 % Normal 0-10 [facility] Comment on above: Performed By: #### L 100.0100, L700.6800, L500.2500 #### [facility] [address] [place], [address] Neutrophils/100 WBC (Bld) 67.4 % Normal 47-70 [facility] Comment on above: Performed By: #### L 100.0100, L700.6800, L500.2500 #### [facility] [address] [place], [address] Nucleated RBC (Bld) [#/Vol] 0 10*3/uL Normal 0-5 [facility] Comment on above: Performed By: #### L 100.0100, L700.6800, L500.2500 #### [facility] [address] [place], [address] Platelet mean volume (Bld) [Entitic vol] 10.8 fL Normal 6.2-12.0 [facility] Comment on above: Performed By: #### L 100.0100, L700.6800, L500.2500 #### [facility] [address] [place], [address] Platelets (Bld) [#/Vol] 311 10*3/uL Normal 150-450 [facility] Comment on above: Performed By: #### L 100.0100, L700.6800, L500.2500 #### [facility] [address] [place], [address] RBC (Bld) [#/Vol] 5.45 10*6/uL High 4.2-5.4 [facility] Comment on above: Performed By: #### L 100.0100, L700.6800, L500.2500 #### [facility] [address] [place], [address] RDW SD 45.5 fl High 35.1-43.9 [facility] Comment on above: Performed By: #### L 100.0100, L700.6800, L500.2500 #### [facility] [address] [place], [address] WBC (Bld) [#/Vol] 12.2 10*3/uL High 4.4-11.0 [facility] Comment on above: Performed By: #### L 100.0100, L700.6800, L500.2500 #### [facility] [address] [place], [address] Determination of erythrocyte mean corpuscular volume (MCV)Ordered By: Myron Machuca on 06-15-2023 MCV (RBC) [Entitic vol] 82.0 fL 81-99 [facility] Emergency Department Summary on 06-15-2023 Emergency Department Summary [facility] Medical Records Department [address] [place] [address] Emergency Department Summary 06/15/23 MR#: [id number] Acct: [id number] Name: MITZI LAWLER Rep #: [id number] : 1995 28 From: Myron Machuca DO [...] She notes that the stool is formed. [facility] Medical History (Updated 06/15/23 @ 04:09 [...] red re (more content not included)... Normal [facility] Erythrocyte distribution wid th ratioOrdered By: Myron Machuca on 06-15-2023 Erythrocyte distribution width (RBC) [Ratio] 15.4 % 11.6-14.6 [facility] Erythrocyte distribution wid th standard deviationOrdered By: Myron Machuca on 06-15-2023 Erythrocyte distribution width (RBC) [Entitic vol] 45.5 fL 35.1-43.9 [facility] Hematocrit Auto (Bld) [Volum e fraction]Ordered By: Myron Machuca on 06-15-2023 Hematocrit (Bld) [Volume fraction] 44.7 % 37-47 [facility] Immature granulocytes/100 WB C Auto (Bld)Ordered By: Myron Machuca on 06-15-2023 Immature granulocytes/100 WBC (Bld) 0.500 % 0.0-0.9 [facility] Comment on above: IG% - Immature Granu locytes (promyelocytes, myelocytes and metamyelocytes) > 1% indicates that a LEFT SHIFT is Present. Laboratory - Chemistry and C hemistry - challengeOrdered By: Myron Machuca on 06-15-2023 CO2 [Moles/Vol] 26.0 mmol/L 21.0-32.0 [facility] Urea nitrogen/Creatinine [Mass ratio] 8.6 mg/mg 10-20 [facility] Laboratory - Hematology and Cell countsOrdered By: Myron Machcua on 06-15-2023 MCH (RBC) [Entitic mass] 24.8 pg 27.0-32.0 [facility] MCHC (RBC) [Mass/Vol] 30.2 g/dL 32-36 [facility] Nucleated RBC/100 WBC (Bld) [Ratio] 0 % 0-5 [facility] Platelets (Bld) [#/Vol] 311 10*3/uL 150-450 [facility] No Panel InformationOrdered By: Myron Machuca on 06-15-2023 Estimated Creatinine Clearance Calc 161.90 ml/min [facility] Estimated GFR (MDRD) Amer 159 mL/min >60 [facility] Comment on above: GFR Calc Estimated GFR (MDRD) Non-Af Amer 131 mL/min >60 [facility] Comment on above: Non- GFR Calc Platelet mean volume Bryan-Ec ker (Bld) [Entitic vol]Ordered By: Myron Machuca on 06-15-2023 Platelet mean volume (Bld) [Entitic vol] 10.8 fL 6.2-12.0 [facility] ,Serum,hCG Quali.on 01-19-2024 HCG, SERUM QUAL Negative Normal [facility] Comment on above: Performed By: #### L 100.0100, L700.6800, L500.2500 #### [facility] [address] [place], [address] RBC Auto (Bld) [#/Vol]Ordere d By: Myron Machuca on 06-15-2023 RBC (Bld) [#/Vol] 5.45 10*6/uL 4.2-5.4 [facility] Serum or plasma calcium suzette urement (mass/volume)Ordered By: Myron Machuca on 06-15-2023 Calcium [Mass/Vol] 9.5 mg/dL 8.5-10.1 [facility] Serum or plasma choriogonado tropin detectionOrdered By: Myron Machuca on 06-15-2023 HCG ( test) Ql Negative [facility] Serum or plasma creatinine m easurement (mass/volume)Ordered By: Myron Machuca on 06-15-2023 Creatinine [Mass/Vol] 0.58 mg/dL 0.55-1.02 [facility] Comment on above: The validity of the calculated GFR & GFRAA in patients over 70 years has not been determined. Clinical correlation is essential. Serum or plasma urea nitroge n measurement (mass/volume)Ordered By: Myron Machuca on 06-15-2023 Urea nitrogen [Mass/Vol] 5 mg/dL 7-18 [facility] Thin prep Papanicolaou smear with manual screeningOrdered By: Myron Machuca on 06-15-2023 Thin prep Papanicolaou smear with manual screening 6 5-15 [facility] CNOVon 06-04-2023 CNOV Office Visit (UCWSTR) ---- MITZI LAWLER ([id number]) 1995 F Date Time Provider Department 06/04/23 [...] 06/24/2020t had 2 previous C sections in [place]. She desires a . I have asked her to obtain her operative report from her last delivery in [place]. I have also asked the patient to [...] Left c (more content not included)... [facility] MITZ[facility] ([id number]) 1995 F Date Time Provider Department 01/13/23 [facility]CTOR [facility] During your visit today, we recorded [...] Reviewed: 01/09/2023 Reviewed by: Juan R Szymanski APRN.[employer] - Fully Assessed Reason for Visit: Results [...] Encounter Status:Closed by ROSI GUILLERMO on 01/15/23 [facility] Bacteria Ur Culton 3 Bacteria identified [...] , Intermediate >32 , Resistant >64 Abnormal [facility] Comment on above: Performed By: #### 6 30-4 #### [facility] CLIA [id number] [address] [place] [address] [place] CNGena 01-09-2023 CNOV Office Visit (UCWSTR) ---- MITZI LAWLER ([id number]) 1995 F Date Time Provider Department 01/09/23 3:45 PM JUAN R SZYMANSKI [facility] During your visit today, we recorded the following information about you: Temperature Pulse Respiration Blood pressure 97.9 degrees 64/minute 16/minute 116/68 Weight 96.2 kg Juan R Szymanski APRN.[employer] PRESS HAND 01/09/2023 4:00 PM Signed Subjective HPI A nontoxic appearing female presents to urgent care with chief complaint of possible UTI. Duration of symptoms 1 week. Associated symptoms dysuria, frequency, and urgency. Patient has history of UTIs in past with similar signs and symptoms. Patient denies the use of any ljiw-led-jyhacjf medications or home remedies for symptom management. [...] 06/24/2020t had 2 previous C sections in [place]. She desires a . I have asked her to obtain her operative report from her last delivery in [place]. I have also asked the patient to [...] of breath, (more content not included)... Normal [facility] UA DIP, URINE (POC)on 2022 BILIRUBIN UA (POCT) Negative Negative [facility] CLARITY UA (POCT) Cloudy [facility] COLOR UA (POCT) Yellow [facility] GLUCOSE UA (POCT) Negative Negative mg/dL [facility] HEMOGLOBIN/BLOOD UA (POCT) Small Abnormal Negative [facility] KETONE UA (POCT) Negative Negative mg/dL [facility] LEUKOCYTES UA (POCT) Small Abnormal Negative [facility] NITRITE UA (POCT) Positive Abnormal Negative [facility] PH UA (POCT) 5.0 4.5 - 8.0 [facility] Protein Ql (U) Negative Negative mg/dL [facility] SPECIFIC GRAVITY UA (POCT) 1.015 1.005 - 1.030 [facility] UROBILINOGEN UA (POCT) 0.2 E.U./dL Katherine l E.U./dL [facility] ACETAMINOPHENon 11-27-2022 Acetaminophen [Mass/Vol] ug/mL Normal 10.0 - 30.0 [facility] Comment on above: Performed By: #### A CETA #### [address] [place] [address] ALCOHOLon 11-27-2022 Ethanol [Mass/Vol] mg/dL Normal [facility] Comment on above: Result Comment: FOR MEDICAL USE ONLY. . REF VALUES <10 Performed By: #### A LC #### [address] [address] CBC AND DIFFERENTIALon 11-27 % AUTOMATED IMMATURE GRAN 0.4 % Normal 0.0 - 0.9 [facility] Comment on above: Result Comment: Deidre ture Granulocyte Count (IG) includes promyelocytes, myelocytes and metamyelocytes but does not include bands. Percent differential counts (%) should be interpreted in the context of the absolute cell counts (cells/L). Performed By: #### C BCDF #### [address] [address] Basophils (Bld) [#/Vol] 0.04 10*3/uL Normal 0.00 - 0.10 [facility] Comment on above: Performed By: #### C BCDF #### [address] [address] Basophils/100 WBC (Bld) 0.3 % Normal 0.0 - 2.0 [facility] Comment on above: Performed By: #### C BCDF #### [address] [address] Eosinophils (Bld) [#/Vol] 0.10 10*3/uL Normal 0.00 - 0.70 [facility] Comment on above: Performed By: #### C BCDF #### [address] [address] Eosinophils/100 WBC (Bld) 0.8 % Normal 0.0 - 6.0 [facility] Comment on above: Performed By: #### C BCDF #### [address] [address] Erythrocyte distribution width (RBC) [Ratio] 15.4 % High 11.5 - 14.5 [facility] Comment on above: Performed By: #### C BCDF #### [address] [address] Hematocrit (Bld) [Volume fraction] 42.2 % Normal 36.0 - 46.0 [facility] Comment on above: Performed By: #### C BCDF #### [address] [address] Hemoglobin (Bld) [Mass/Vol] 12.9 g/dL Normal 12.0 - 16.0 [facility] Comment on above: Performed By: #### C BCDF #### [address] [address] Lymphocytes (Bld) [#/Vol] 2.80 10*3/uL Normal 1.20 - 4.80 [facility] Comment on above: Performed By: #### C BCDF #### [address] [address] Lymphocytes/100 WBC (Bld) 23.0 % Normal 13.0 - 44.0 [facility] Comment on above: Performed By: #### C BCDF #### [address] [address] MCHC (RBC) [Mass/Vol] 30.6 g/dL Low 32.0 - 36.0 [facility] Comment on above: Performed By: #### C BCDF #### [address] [address] MCV (RBC) [Entitic vol] 79 fL Low 80 - 100 [facility] Comment on above: Performed By: #### C BCDF #### [address] [address] Monocytes (Bld) [#/Vol] 0.51 10*3/uL Normal 0.10 - 1.00 [facility] Comment on above: Performed By: #### C BCDF #### [address] [address] Monocytes/100 WBC (Bld) 4.2 % Normal 2.0 - 10.0 [facility] Comment on above: Performed By: #### C BCDF #### [address] [address] Neutrophils (Bld) [#/Vol] 8.67 10*3/uL High 1.20 - 7.70 [facility] Comment on above: Result Comment: Perc ent differential counts (%) should be interpreted in the context of the absolute cell counts (cells/L). Performed By: #### C BCDF #### [address] [address] Neutrophils/100 WBC (Bld) 71.3 % Normal 40.0 - 80.0 [facility] Comment on above: Performed By: #### C BCDF #### [address] [address] Platelets (Bld) [#/Vol] 317 10*3/uL Normal 150 - 450 [facility] Comment on above: Performed By: #### C BCDF #### [address] [address] RBC 5.32 x10E12/L High 4.00 - 5.20 [facility] Comment on above: Performed By: #### C BCDF #### [address] [address] WBC (Bld) [#/Vol] 12.2 10*3/uL High 4.4 - 11.[address] [facility] Comment on above: Performed By: #### C BCDF #### [address] [address] COMPREHENSIVE PANELon 2022 Albumin [Mass/Vol] 3.8 g/dL Normal 3.4 - 5.0 [facility] Comment on above: Performed By: #### C MP #### [address] [address] ALP [Catalytic activity/Vol] 91 U/L Normal 33 - 110 [facility] Comment on above: Performed By: #### C MP #### [address] [address] ALT [Catalytic activity/Vol] 5 U/L Low 7 - 45 [facility] Comment on above: Result Comment: Marni ents treated with Sulfasalazine may generate falsely decreased results for ALT. Performed By: #### C MP #### [address] [address] Anion gap [Moles/Vol] 11 mmol/L Normal 10 - 20 [facility] Comment on above: Performed By: #### C MP #### [address] [address] AST [Catalytic activity/Vol] 9 U/L Normal 9 - 39 [facility] Comment on above: Performed By: #### C MP #### [address] [address] Bilirubin [Mass/Vol] 0.2 mg/dL Normal 0.0 - 1.2 [facility] Comment on above: Performed By: #### C MP #### [address] [address] Calcium [Mass/Vol] 9.1 mg/dL Normal 8.6 - 10.3 [facility] Comment on above: Performed By: #### C MP #### [address] [address] Chloride [Moles/Vol] 102 mmol/L Normal 98 - 107 [facility] Comment on above: Performed By: #### C MP #### [address] [address] Creatinine [Mass/Vol] 0.68 mg/dL Normal 0.50 - 1.05 [facility] Comment on above: Performed By: #### C MP #### [address] [address] eGFR FEMALE >90 Normal >90 [facility] Comment on above: Result Comment: CALC ULATIONS OF ESTIMATED GFR ARE PERFORMED USING THE 2020 CKD-EPI STUDY REFIT EQUATION WITHOUT THE RACE VARIABLE FOR THE IDMS-TRACEABLE CREATININE METHODS. https://jasn.asnjournals.org/content/early//ASN.95433 [address] Performed By: #### C MP #### [address] [address] Glucose [Mass/Vol] 180 mg/dL High 74 - 99 [facility] Comment on above: Performed By: #### C MP #### [address] [address] HCO3 (Bld) [Moles/Vol] 26 mmol/L Normal 21 - 32 [facility] Comment on above: Performed By: #### C MP #### [address] [address] Potassium [Moles/Vol] 3.1 mmol/L Low 3.5 - 5.3 [facility] Comment on above: Performed By: #### C MP #### [address] [address] Protein [Mass/Vol] 6.8 g/dL Normal 6.4 - 8.2 [facility] Comment on above: Performed By: #### C MP #### [address] [address] Sodium [Moles/Vol] 136 mmol/L Normal 136 - 145 [facility] Comment on above: Performed By: #### C MP #### [id number] Urea nitrogen [Mass/Vol] 6 mg/dL Normal 6 - 23 [facility] Comment on above: Performed By: #### C MP #### [id number] DRUG SCREEN,URINEon 11-28-19 23 AMPHETAMINE SCREEN,U Negative Normal NEGATIVE [facility] Comment on above: Result Comment: CUTO FF LEVEL: 500 NG/ML Cross-reactivity has been reported with high concentrations of the following drugs: buproprion, chloroquine, chlorpromazine, ephedrine, mephentermine, fenfluramine, phentermine, phenylpropanolamine, pseudoephedrine, and propranolol. Performed By: #### D RUG3 #### [id number] BARBITURATES SCREEN,U Negative Normal NEGATIVE [facility] Comment on above: Result Comment: CUTO FF LEVEL: 200 NG/ML Performed By: #### D RUG3 #### [address] [address] BENZODIAZEPINES SCREEN,U Negative Normal NEGATIVE [facility] Comment on above: Result Comment: CUTO FF LEVEL: 200 NG/ML Performed By: #### D RUG3 #### [id number] CANNABINOIDS SCREEN,U Positive Abnormal NEGATIVE [facility] Comment on above: Result Comment: CUTO FF LEVEL: 50 NG/ML Performed By: #### D RUG3 #### [place] [address] COCAINE METABOLITE SCREEN,U Negative Normal NEGATIVE [facility] Comment on above: Result Comment: CUTO FF LEVEL: 150 NG/ML Performed By: #### D RUG3 #### [place] [address] DRUG SCREEN COMMENT SEE BELOW Normal [facility] Comment on above: Result Comment: Drug screen results are presumptive and should not be used to assess compliance with prescribed medication. Contact the performing [facility] laboratory to add-on definitive confirmatory testing if [...] directors. Performed By: #### D RUG3 #### [place] [address] FENTANYL SCREEN,URINE Negative Normal NEGATIVE [facility] Comment on above: Result Comment: CUTO FF LEVEL: 5 NG/ML Performed By: #### D RUG3 #### [place] [address] METHADONE SCREEN,U Negative Normal NEGATIVE [facility] Comment on above: Result Comment: CUTO FF LEVEL: 150 NG/ML The metabolite B-afans-ztvclbphozbsgx (LAAM) is not detected by this method in concentrations that would be found in the urine of patients on LAAM therapy. Performed By: #### D RUG3 #### [id number] OPIATES SCREEN,U Negative Normal NEGATIVE [facility] Comment on above: Result Comment: CUTO FF LEVEL: 300 NG/ML The opiate screen does not detect fentanyl, meperidine, or tramadol. Oxycodone is not consistently detected (refer to Oxycodone Screen, Urine result). Performed By: #### D RUG3 #### [place] [address] OXYCODONE SCREEN,U Negative Normal NEGATIVE [facility] Comment on above: Result Comment: CUTO FF LEVEL: 100 NG/ML This test will accurately detect both oxycodone and oxymorphone. Performed By: #### D RUG3 #### [place] [address] PCP SCREEN,U Negative Normal NEGATIVE [facility] Comment on above: Result Comment: CUTO FF LEVEL: 25 NG/ML Cross-reactivity has been reported with dextromethorphan. Performed By: #### D RUG3 #### [place] [address] HCG,BETA-QUANTITATIVEon 07-0 HCG,BETA-QUANTITATIVE <2 Normal [facility] Comment on above: Result Comment: . Total HCG measurement is performed using the Julio Cés[employer] Mercantila Access Immunoassay which detects intact HCG and free beta HCG subunit. . This test is not indicated for use as a tumor marker. HCG testing is performed using a different test methodology at [facility] than other [facility]. Direct result comparison should only be made within the same method. REF VALUES NON FEMALE <5 MALES <5 Performed By: #### H CGQU #### [place] [address] Provider Note - ED v3on 07-0 Provider [...] tobacco, alcohol or illicit drugs. Fam: MEDS: [id number] Tylenol ALLERGIES: PCN ---- ---- PHYSICAL EXAM: [...] location that will accept her for admission. [facility] excepted the patient. I have filled out transfer paperwork with the patient and the patient will be transferred later this morning around 6:30 AM with planned admission at 7 AM. This chart was dictated with the use of Segetis software within the framework of the current [...] The patient wants to be admitted to [facility] where she has been before - is [facility]. resident)(1). Triage Information: Most recent Vital Sign [...] Med Status: (more content not included)... Normal [facility] SALICYLATEon 11-27-2022 SALICYLATE <3 Normal 4 - 20 [facility] Comment on above: Performed By: #### S [facility] #### [place] [address] Triage - EDon 11-27-2022 Triage - ED [...] The patient wants to be admitted to [facility] where she has been before - is [facility] resident). Triage Date/Time: 26-Nov-2022 23:04 JOSE: 2 [...] 26-Nov-2022 23:38 by Hai Davis (HALI) Normal [facility] URINALYSIS WITH CULTURE IF I NDICATEDon 11-27-2022 Appearance (U) HAZY Normal CLEAR [facility] Comment on above: Performed By: #### U ARFX #### [place] [address] Bilirubin Ql (U) Negative Normal NEGATIVE [facility] Comment on above: Performed By: #### U ARFX #### [place] [address] Color (U) Yellow Normal STRAW,YELLOW [facility] Comment on above: Performed By: #### U ARFX #### [place] [address] Glucose Ql (U) Negative Normal NEGATIVE [facility] Comment on above: Performed By: #### U ARFX #### [address] [address] Hemoglobin Ql (U) Negative Normal NEGATIVE [facility] Comment on above: Performed By: #### U ARFX #### [place] [address] Ketones Ql (U) Negative Normal NEGATIVE [facility] Comment on above: Performed By: #### U ARFX #### [place] [address] Leukocyte esterase Test strip Ql (U) Negative Normal NEGATIVE [facility] Comment on above: Performed By: #### U ARFX #### [address] [address] Nitrite Ql (U) Negative Normal NEGATIVE [facility] Comment on above: Performed By: #### U ARFX #### [address] [address] pH (U) 5.0 [pH] Normal 5.0 - 8.0 [facility] Comment on above: Performed By: #### U ARFX #### [address] [address] Protein Ql (U) Negative Normal NEGATIVE [facility] Comment on above: Performed By: #### U ARFX #### [address] [address] Specific gravity (U) [Rel density] 1.018 Normal 1.005 - 1.035 [facility] Comment on above: Performed By: #### U ARFX #### [address] [address] Urobilinogen (U) [Mass/Vol] mg/dL Normal 0.0 - 1.9 [facility] Comment on above: Performed By: #### U ARFX #### [address] [address] COVID-19, MOLECULARon 2021 SARS-CoV-2 (COVID-19) RNA VERONICA+probe Ql (Unsp spec) Not detected Normal Not Detected [facility] Comment on above: Order Comment: [...] at the following links: For Healthcare Providers: https://www.fda.gov/media/860226/download For Patients: https://www.fda.gov/media/910806/download Performed By: #### L [id number] #### C LAB [address] [place], [place] [address] Zane Lynch M.D. [id number] US OB FOLLOW UP TRANSABDOMIN AL SINGLE FETUSon 08-24-2021 US OB FOLLOW UP TRANSABDOMINAL SINGLE FETUS Today: Growth AUA =35w3d PATIENCE by US = 09/25/2021 FHR: 150 bpm Presentation: Cephalic EFW:2719 g or 6lb 0oz 33% MRALENE: 11.40 cm Placenta: Posterior Movement: observed No gross anomalies visualized. Standard limitations of ultrasound apply. Spiral Winder: Lauren Moyer RDMS Attending Note I have reviewed the images and agree with the above assessment. Impression/Recommen dation: Images reviewed. Agree with report as written. Results communicated during visit. Awais Steinberg MD Attending Physician [facility] Obstetrics and Gynecology Dictated by: AWAIS STEINBERG on SunAug 24, 2021 11:17:17 AM EDT Transcribed by: AWAIS STEINBERG on SunAug 24, 2021 11:17:17 AM EDT Finalized by: AWAIS STEINBERG on SunAug 24, 2021 11:17:17 AM EDT Normal [facility] Comment on above: Order Comment: This back office order was created through the Ultrasound Visit Navigator section. Today: Growth AUA =35w3d PATIENCE by US = 09/25/2021 FHR: 150 bpm Presentation: Cephalic EFW:2719 g or 6lb 0oz 33% MARLENE: 11.40 cm Placenta: Posterior Movement: observed No gross anomalies visualized. Standard limitations of ultrasound apply. Spiral Winder: Lauren Moyer RDMS Attending Note I have reviewed the images and agree with the above assessment. Impression/Recommen dation: Images reviewed. Agree with report as written. Results communicated during visit. Awais Steinberg MD Attending Physician [facility] Obstetrics and Gynecology [facility] Radiology Study observation (narrative) [facility] OB FOLLOW UP TRANSABDOMIN AL SINGLE FETUSon 07-25-2021 Today: Growth AUA =32w1d PATIENCE by US = 09/18/21 FHR: 126 bpm Presentation: BREECH EFW:1903 g or 4lb 3oz 42% MARLENE: 16.28 cm Placenta: Posterior fundal Movement: observed No gross anomalies visualized. Standard limitations of ultrasound apply. Spiral Winder: Lauren Moyer RDMS Agree with admissions counselor's report as above. EFW 42%ile, MARLENE wnl. Breech presentation. Recommend follow up scan at 36 weeks to reassess growth and position. Danni Tamez DO Obstetrics and Gynecology GE RIS [facility] Radiology Study observation (narrative) [facility] US OB FOLLOW UP TRANSABDOMINAL SINGLE FETUS Today: Growth AUA =32w1d PATIENCE by US = 09/18/21 FHR: 126 bpm Presentation: BREECH EFW:1903 g or 4lb 3oz 42% MARLENE: 16.28 cm Placenta: Posterior fundal Movement: observed No gross anomalies visualized. Standard limitations of ultrasound apply. Spiral Winder: Lauren Moyer RDMS Agree with admissions counselor's report as above. EFW 42%ile, MARLENE wnl. Breech presentation. Recommend follow up scan at 36 weeks to reassess growth and position. Danni Tamez DO Obstetrics and Gynecology Dictated by: DANNI TAMEZ on SunJul 25, 2021 2:44:43 PM EST Transcribed by: DANNI TAMEZ on SunJul 25, 2021 2:44:43 PM EST Finalized by: DANNI TAMEZ on SunJul 25, 2021 2:44:43 PM EST Normal [facility] Comment on above: Order Comment: This back office order was created through the Ultrasound Visit Navigator section. SARS-CoV-2 (COVID-19) RNA NA A+probe Ql (Resp)Ordered By: Tevin Bains on 05-20-2021 Interpretation and review of laboratory results Abnormal [facility] SARS-CoV-2 (COVID-19) RdRp gene VERONICA+probe Ql (Resp) Detected Abnormal Not Detected [facility] SARS-CoV-2 RNA Resp Ql VERONICA+p robeon 05-20-2021 SARS-CoV-2 (COVID-19) RNA VERONICA+probe Ql (Resp) Detected Invalid Interpretation Code Not Detected [facility] Comment on above: Performed By: #### 9 4500-6 #### [facility] [address] [place] [address] N. gonorrhoeae DNA VERONICA+probe Ql (U)on 04-25-2021 Trichomonas vaginosis Negative Normal Negative [facility] Comment on above: Performed By: #### 2 1416-3 #### [facility] [address] [place] [address] Laboratory - Specimen inform ationon 04-24-2021 Specimen source Nom (Unsp spec) Hold for add-ons. [facility] Comment on above: Auto resulted. No Panel Informationon 04-24 [facility] Nuclear IgG IA Ql (S)on 03-29 Bilirubin, Urine Negative Normal Negative [facility] Comment on above: Performed By: #### 2 9950-3 #### [facility] [address] [place] [address] Blood, Urine Negative Normal Negative [facility] Comment on above: Performed By: #### 2 9950-3 #### [facility] [address] [place] [address] Clarity (U) Clear Normal Clear [facility] Comment on above: Performed By: #### 2 9950-3 #### [facility] [address] [place] [address] Color (U) Yellow Normal Yellow [facility] Comment on above: Performed By: #### 2 9950-3 #### [facility] [address] [place] [address] Glucose Ql (U) Normal Normal Normal [facility] Comment on above: Performed By: #### 2 9950-3 #### [facility] [address] [place] [address] Ketones Ql (U) Negative Normal Negative [facility] Comment on above: Performed By: #### 2 9950-3 #### [facility] [address] [place] [address] Leukocytes, Urine Negative Normal Negative [facility] Comment on above: Performed By: #### 2 9950-3 #### [facility] [address] [place] [address] Nitrite, Urine Negative Normal Negative [facility] Comment on above: Performed By: #### 2 9950-3 #### [facility] [address] [place] [address] pH (U) 6.0 [pH] Normal 5.0-8.0 [facility] Comment on above: Performed By: #### 2 9950-3 #### [facility] [address] [place] [address] Protein, Urine Negative Normal Negative [facility] Comment on above: Performed By: #### 2 9950-3 #### [facility] [address] [place] [address] Specific [place] Urine 1.017 Normal 1.002-1.030 [facility] Comment on above: Performed By: #### 2 9950-3 #### [facility] [address] [place] [address] Urobilinogen, Urine Normal Normal Normal [facility] Comment on above: Performed By: #### 2 9950-3 #### [facility] [address] [place] [address] Bilirubin Ql (U) Negative Negative mg/dL Caron [...] Health Urobilinogen (U) [Mass/Vol] Normal Normal mg/dL [facility] XR Chest PA and Lateralon IMPRESSION: No acute radiographic abnormality. Loom Repairer: MERLY Transcribe Date/Time: Nov 09 2020 12:14P Dictated by : MORIAH MONTES DE OCA MD This examination was interpreted and the report reviewed and electronically signed by: MORIAH MONTES DE OCA MD on Nov 09 2020 12:16PM [facility] DIVISION OF RADIOLOGY * [...] acute osseous abnormality. DIVISION OF RADIOLOGY Provider, [facility] [place] - 11/09/2020 * * *Final Report* * [...] abnormality. IMPRESSION IMPRESSION: No acute radiographic abnormality. Loom Repairer: MERLY Transcribe Date/Time: Nov 09 2020 12:14P Dictated by : MORIAH MONTES DE OCA MD This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 Admission to same day surgery center 09/14/2021 Surgery Obstetrics Tariq Dior MD [address] [address] SECTION WITH BILATERAL PARTIAL SALPINGECTOMY [facility] Labor & Delivery Comment on above: SECTION WIT H BILATERAL PARTIAL SALPINGECTOMY Start: 09-14-2021 End: 09-14-2021 SECTION WITH BILATERAL PARTIAL SALPINGECTOMY [facility] Start: 09-14-2021 Subsequent hospital visit by physician 09/14/2021 Hospital Encounter Obstetrics Tariq Dior MD [address] [place] [address] [facility] Labor & Delivery Start: 09-06-2021 End: 09-06-2021 Patient encounter procedure 09/06/2021 Routine Obstetrics and Gynecology Danni Tamez DO [address] [place] [address] [facility] Obstetrics and Gynecology Start: 08-30-2021 End: 08-30-2021 Patient encounter procedure 08/30/2021 Routine Obstetrics and Gynecology Tamie Ayala CNM [address] [place] [address] [facility] Obstetrics and Gynecology Start: 08-23-2021 End: 08-23-2021 Patient encounter procedure 08/23/2021 Routine Obstetrics and Gynecology Tamie Ayala CNM [address] [place] [address] [facility] Obstetrics and Gynecology Start: 08-22-2021 End: 08-22-2021 Patient encounter procedure 08/22/2021 Routine Obstetrics and Gynecology [facility] Obstetrics and Gynecology Start: 08-08-2021 End: 08-08-2021 Patient encounter procedure 08/08/2021 Routine Obstetrics and Gynecology Danni Tamez DO [address] [place] [address] [facility] Obstetrics and Gynecology Start: 07-25-2021 End: 07-25-2021 Patient encounter procedure 07/25/2021 Routine Obstetrics and Gynecology Danni Tamez, [address] [facility] [place] [address] [facility] Obstetrics and Gynecology Start: 07-22-2021 End: 07-22-2021 Patient encounter procedure 07/22/2021 Routine Obstetrics and Gynecology Danni Tamez, [address] [place] [address] [facility] Obstetrics and Gynecology Start: 06-20-2021 End: 06-20-2021 Patient encounter procedure 06/20/2021 Routine Obstetrics and Gynecology Danni Tamez, [address] [place] [address] [facility] Obstetrics and Gynecology Start: 06-08-2021 End: 06-08-2021 Patient encounter procedure 06/08/2021 Appointment Maternal and Medicine [facility] Maternal Medicine Start: 06-06-2021 End: 06-06-2021 Patient encounter procedure 06/06/2021 Routine Obstetrics and Gynecology Danni Tamez, [address] [place] [address] [facility] Obstetrics and Gynecology Start: 05-09-2021 End: 05-09-2021 Patient encounter procedure 05/09/2021 Routine Obstetrics and Gynecology Danni Tamez, [address] [place] [address] [facility] Obstetrics and Gynecology Start: 05-02-2021 End: 04-11-2022 US Obstetric Detail Anatomy Transabdominal Single Fetus US Obstetric Detail Anatomy Transabdominal Single Fetus Imaging Routine Bipolar depression (HCC) Encntr for suprvsn of normal preg, unsp, second trimester Expected: 05/02/2021, Expires: 04/11/2022 [facility] Comment on above: Expected: 05/02/2021 , Expires: 04/11/2022 Start: 04-24-2021 Adolescent depressio n screening assessment Depression Screening [facility] Start: 04-24-2021 Hepatitis C screening Hepatitis C Sc reening [facility] Start: 04-24-2021 HIV screening HIV Screening [facility] Start: 04-24-2021 Lipid panel Cholesterol Sc reening (Lipid Panel) [facility] Start: 04-24-2021 Social Influencers o f Health Screening Social Influencers of Health Screening [facility] Start: 01-26-2021 Influenza vaccination [facility] Start: 12-31-2020 COVID-19 VACCINE (2 - Pfizer series) COVID-19 VACCINE (2 - Pfizer series) [facility] Start: 11-26-2020 COVID-19 Vaccine (2 - Pfizer 2-dose series) COVID-19 Vaccine (2 - Pfizer 2-dose series) [facility] Start: 11-26-2020 COVID-19 Vaccine (2 - Pfizer 3-dose booster series) COVID-19 Vaccine (2 - Pfizer 3-dose booster series) [facility] Start: 11-26-2020 COVID-19 Vaccine (2 - Pfizer 3-dose series) COVID-19 Vaccine (2 - Pfizer 3-dose series) [facility] Start: 11-26-2020 COVID-19 Vaccine (2 - Pfizer series) COVID-19 Vaccine (2 - Pfizer series) [facility] Start: 01-27-2020 Influenza vaccination Flu vaccine (# 1) [facility] [place] Start: 2016 PAP TESTING PAP TESTING [facility] Start: 2016 Screening for malign ant neoplasm of cervix Cervical Cancer Screening: Pap Smear [facility] Start: 2014 DTaP,Tdap,and Td Vac cines (1 - Tdap) DTaP,Tdap,and Td Vaccines (1 - Tdap) [facility] Start: 2014 Hepatitis B Vaccine (1 of 3 - 19+ 3-dose series) Hepatitis B Vaccine (1 of 3 - 19+ 3-dose series) [facility] Start: 2014 Urine microalbumin profile DTAP,TDAP ,TD (1 - Tdap) [facility] Start: 2013 Anxiety Screening Anxiety Screening [facility] Start: 2013 Hepatitis C screening Hepatitis C Sc reening [facility] Start: 2013 HIV SCREENING HIV SCREENING [facility] Start: 2013 HIV screening HIV Screening [facility] Start: 2010 HIV screening [facility] Scre[facility] Start: 2007 COVID-19 Vaccine (1) COVID-19 Vaccin e (1) [facility] Start: 2007 Depression screening using PHQ-9 (Patient Health Questionnaire 9) score Depression Screening (PHQ-2/9) [facility] Start: 2006 HPV Vaccines (1 - 2- dose series) HPV Vaccines (1 - 2-dose series) [facility] Start: 2006 Vaccination for elsa n papillomavirus HPV Vaccines (1 - 2-dose series) [facility] Start: 2001 PNEUMOCOCCAL (1 - PCV) PNEUMOCOCCAL (1 - PCV) [facility] Start: 2001 Pneumococcal vaccination Pneum ococcal Vaccine (1 of 2 - PCV) [facility] Start: 2001 Pneumococcal Vaccine : Ped or At-Risk (1 - PCV) Pneumococcal Vaccine: Ped or At-Risk (1 - PCV) [facility] Start: 2001 Pneumococcal Vaccine : Ped or At-Risk (1 of 2 - PPSV23) Pneumococcal Vaccine: Ped or At-Risk (1 of 2 - PPSV23) [facility] Start: 2001 Pneumococcal Vaccine : Pediatrics (0 to 5 Years) and At-Risk Patients (6 to 64 Years) (1 of 2 - PPSV23) Pneumococcal Vaccine: Pediatrics (0 to 5 Years) and At-Risk Patients (6 to 64 Years) (1 of 2 - PPSV23) [facility] Start: 1998 History and physical examination, annual for health maintenance Wellness Visit [facility] Start: 1995 HEPATITIS B (1 of 3 - 3-dose series) HEPATITIS B (1 of 3 - 3-dose series) [facility] Start: 1995 Screening for malign ant neoplasm of cervix Pap Smear [facility] Start: 1995 Tetanus vaccination Tetanus: Every 1 0yrs [facility] Bacteria identified in Unspecified specimen by Aerobe culture Urine Aerobic Culture Microbiology Routine Encntr for suprvsn of normal preg, unsp, second trimester Ordered: 05/09/2021 [facility] Comment on above: Ordered: 05/09/2021 End: 09-06-2022 Bacteria identified in Unspecified specimen by Aerobe culture Urine Aerobic Culture Microbiology Routine Dysuria 1 Occurrences starting 09/06/2021 until 09/06/2022 [facility] Work Phone: Comment on above: 1 Occurrences starti ng 09/06/2021 until 09/06/2022 Bacteria identified in Urine by Culture URINE CULTURE Microbiology Routine Burning with urination 01/09/2023 5:06 PM EDT [facility] Work Phone: Blood group antibody screen [Presence] in Serum or Plasma Antibody Screen Blood Bank Routine Encntr for suprvsn of normal preg, unsp, second trimester Ordered: 07/05/2021 [facility] Comment on above: Ordered: 07/05/2021 Blood type and Indir ect antibody screen panel - Blood Type and Screen Blood Bank Routine Encntr for suprvsn of normal preg, unsp, second trimester Ordered: 05/09/2021 [facility] Comment on above: Ordered: 05/09/2021 section SECTIO N Prior Uterine Surgery [facility] Complete blood count with white cell differential, automated CBC Auto Differential Lab Panel Routine Encntr for suprvsn of normal preg, unsp, second trimester Ordered: 05/09/2021 [facility] Comment on above: Ordered: 05/09/2021 Complete blood count with white cell differential, automated CBC Auto Differential Lab Panel Routine Encntr for suprvsn of normal preg, unsp, second trimester Ordered: 07/05/2021 [facility] Comment on above: Ordered: 07/05/2021 Complete blood count with white cell differential, manual CBC and Differential Lab Routine Encntr for suprvsn of normal preg, unsp, second trimester Ordered: 07/05/2021 [facility] Comment on above: Ordered: 07/05/2021 End: 10-09-2022 Glucose [Mass/volume] in Serum or Plasma --1 hour post 50 g glucose PO Gestational Diabetes Screen (50G) Lab Routine Encntr for suprvsn of normal preg, unsp, second trimester 1 Occurrences starting 04/11/2021 until 10/09/2022 [employer] Work Phone: Comment on above: 1 Occurrences starti ng 04/11/2021 until 10/09/2022 End: 07-05-2022 Glucose [Mass/volume] in Serum or Plasma --1 hour post 50 g glucose PO Gestational Diabetes Screen (50G) Lab Routine Encntr for suprvsn of normal preg, unsp, second trimester 1 Occurrences starting 07/05/2021 until 07/05/2022 [employer] Work Phone: Comment on above: 1 Occurrences starti ng 07/05/2021 until 07/05/2022 Hepatitis B surface antigen measurement Hepatitis B Surface Antigen Lab Routine Encntr for suprvsn of normal preg, unsp, second trimester Ordered: 05/09/2021 [facility] Comment on above: Ordered: 05/09/2021 End: 05-09-2022 Hepatitis C antibody measurement Hepatitis C Antibody Lab Routine Encntr for suprvsn of normal preg, unsp, second trimester 1 Occurrences starting 05/09/2021 until 05/09/2022 [facility] Comment on above: 1 Occurrences starti ng 05/09/2021 until 05/09/2022 Human immunodeficien cy virus antibody test HIV 1/2 Screen (4th Generation) Lab Routine Encntr for suprvsn of normal preg, unsp, second trimester Ordered: 05/09/2021 [employer] Work Phone: Comment on above: Ordered: 05/09/2021 Microscopic examinat ion of vaginal Papanicolaou smear Thinprep Pap Smear Pathology and Cytology Routine Encntr for suprvsn of normal preg, unsp, second trimester Ordered: 05/09/2021 [facility] Comment on above: Ordered: 05/09/2021 End: 04-24-2021 Neisseria gonorrhoeae DNA [Presence] in Urine by VERONICA with probe detection [employer] Work Phone: Comment on above: Once for 1 Occurrenc es starting 04/24/2021 until 04/24/2021 Neisseria gonorrhoea e nucleic acid detection Chlamydia/Gonorrhoeae Amplified RNA Microbiology Routine Encntr for suprvsn of normal preg, unsp, second trimester Ordered: 05/09/2021 [facility] Comment on above: Ordered: 05/09/2021 Neisseria gonorrhoea e nucleic acid detection Chlamydia/Gonorrhoeae Amplified RNA Microbiology Routine 36 weeks gestation of Screening examination for venereal disease Ordered: 08/24/2021 [facility] Comment on above: Ordered: 08/24/2021 OBSTETRIC PANEL Obstetric Panel Lab Routine Encntr for suprvsn of normal preg, unsp, second trimester Ordered: 05/09/2021 [facility] Comment on above: Ordered: 05/09/2021 Patient Education [facility] Work Phone: Patient referral [facility] Work Phone: Rapid plasma reagin test RPR Lab Routine Encntr for suprvsn of normal preg, unsp, second trimester Ordered: 05/09/2021 [facility] Comment on above: Ordered: 05/09/2021 Rapid plasma reagin test RPR Lab Routine Encntr for suprvsn of normal preg, unsp, second trimester Ordered: 07/05/2021 [facility] Comment on above: Ordered: 07/05/2021 Rubella IgG measurement Rubella Antibody, IgG Lab Routine Encntr for suprvsn of normal preg, unsp, second trimester Ordered: 05/09/2021 [facility] Comment on above: Ordered: 05/09/2021 Streptococcus agalac tiae DNA [Presence] in Unspecified specimen by VERONICA with probe detection Group B Strep PCR, Vaginal/Rectal Microbiology Routine 36 weeks gestation of Encounter for screening for Streptococcus B Ordered: 08/24/2021 [facility] Work Phone: Comment on above: Ordered: 08/24/2021 Trichomonas vaginali s rRNA [Presence] in Unspecified specimen by VERONICA with probe detection Trichomonas vaginalis molecular study Lab Routine 04/24/2021 10:01 PM EST [employer] Urinalysis Urinalysis Lab R outine Encntr for suprvsn of normal preg, unsp, second trimester Ordered: 05/09/2021 [facility] Comment on above: Ordered: 05/09/2021 US POC Obstetric Ultrasound US POC Obstetric Ultrasound Imaging Routine 07/22/2021 11:05 AM EST [facility] End: 05-09-2022 Varicella-zoster virus antibody IgG measurement Varicella zoster Antibody, IgG Lab Routine Encntr for suprvsn of normal preg, unsp, second trimester 1 Occurrences starting 05/09/2021 until 05/09/2022 [facility] Comment on above: 1 Occurrences starti ng 05/09/2021 until 05/09/2022 Immunizations Immunization Date Immunization Notes Care Provider Az mcneal 06-21-2021 tetanus toxoid, redu austin diphtheria toxoid, and acellular pertussis vaccine, adsorbed Danni Busuito DO Work Phone: [facility] 11-05-2020 COVID-19 original vaccine, age 12+ yr, monovalent (PFIZER-BIONTPrimeSense - PURPLE TOP) Juan R Szymanski [employer] Work Phone: [facility] Payers Date Payer Category Payer Self-pay [id number] 2021 Medicaid [employer] [facility] [id number] 2021-Present [address] [place] [address] [id number] 2018 Medicaid [id number] 2018 Medicaid [id number] 2018 Unknown [id number] 2016 Private Health Insurance [id number] 1995 Unknown [id number] 2.16.840.1.330136.3.579.2. 1143 1995 Unknown [id number] 2.16.840.1.158462.3.579.2. 902 1995 Unknown [id number] 2.16.840.1.129716.3.579.2. 902 1995 Unknown [id number] 2.16.840.1.021661.3.579.2. 2 1995 Unknown [id number] 2.16.840.1.865574.3.579.2. 2 1995 Unknown [id number] 2.16.840.1.718870.3.579.2. 2 1995 Unknown [id number] 2.16.840.1.547125.3.579.2. 1995 Unknown [id number] 2.16.840.1.716895.3.579.2. 1995 Unknown [id number] 2.16.840.1.011784.3.579.2. 1995 Unknown [id number] 2.16.840.1.470856.3.579.2. 1995 Unknown [id number] 2.16.840.1.026953.3.579.2. 1995 Unknown [id number] 2.16.840.1.711800.3.579.2. 1995 Unknown [id number] 2.16.840.1.431791.3.579.2. 1995 Unknown [id number] 2.16.840.1.458353.3.579.2. 1995 Unknown [id number] 2.16840.1.963112.3.579.2. 1995 Unknown [id number] 2.16.840.1.288906.3.579.2. 1995 Unknown [id number] 2.16.840.1.339878.3.579.2. 1995 Unknown [id number] 2.16.840.1.338763.3.579.2. 1995 Unknown [id number] 2.16.840.1.419345.3.579.2. 1995 Unknown [id number] 2.16.840.1.118506.3.579.2. 903 1995 Unknown [id number] 2.16.840.1.367305.3.579.2. 903 1995 Unknown [id number] 2.16.840.1.287305.3.579.2. 903 1995 Unknown [id number] 2.16.840.1.798497.3.579.2. 903 1995 Unknown [id number] 2.16.840.1.121789.3.579.2. 903 1995 Unknown [id number] 2.16.840.1.184917.3.579.2. 903 1995 Unknown [id number] 2.16.840.1.898423.3.579.2. 903 1995 Unknown [id number] 2.16.840.1.468311.3.579.2. 1069 1995 Unknown [id number] 2.16.840.1.282209.3.579.2. 900 1995 Unknown [id number] 2.16.840.1.521947.3.579.2. 651 1995 Unknown [id number] 2.16.840.1.793976.3.579.2. 651 1995 Unknown [id number] 2.16.840.1.759386.3.579.2. 627 Unknown [facility] Unknown [id number] Unknown [id number] 2.16.840.1.860993.3.579.2. 462 Unknown [id number] 2.16840.1.924402.3.579.2. 462 Unknown [id number] 2.16.840.1.434857.3.579.2. 462 Social History Date Type Detail Facility Start: 01-07-2020 End: 12-10-2024 Tobacco smoking status NHIS Current every day smoker [facility] History of tobacco use Cigarette Smoker [facility] [employer] ELLIS ROJAS Start: 01-07-2020 End: 05-04-2020 Cigarettes smoked current (pack per day) - Reported [facility] Start: 01-07-2020 End: 06-24-2020 Tobacco use and exposure Never used [employer] [facility] HELLIS Start: 01-07-2020 Alcohol intake [facility] Start: 01-07-2020 Alcohol Comment occasionally [facility] [employer] ELLIS ROJAS Start: 1995 Sex Assigned At Not on file [facility] Start: 10-06-2020 End: 10-01-2021 Exposure to SARS-CoV-2 (event) Not sure [facility] [employer] COELL[facility] Start: 11-09-2020 End: 04-11-2021 Alcohol intake Ex-drinker (finding) [facility] Start: 04-11-2021 History MAOH Alcohol Comment Have not heavily for 9 yrs, occassionally now. [facility] Start: 12-26-2020 [facility] Start: 04-24-2021 Tobacco Comment pt is in process of quiting [employer] Start: 10-26-2021 End: 06-15-2023 Tobacco smoking status NHIS Unknown if ever smoked [facility] Start: 1995 End: 1995 Sex Assigned At Female [facility] Start: 05-04-2020 End: 10-08-2020 Social connection and isolation panel [facility] Do you belong to any clubs or organizations such as restoration groups, unions, fraternal or athletic groups, or school groups? No [facility] Are you now , , , , never or living with a partner? Never [facility] How often to you hav e a drink containing alcohol? 2-4 times a month [facility] How many standard dr inks containing alcohol do you have on a typical day? 1 or 2 [facility] How often do you hav e 6 or more drinks on 1 occasion? Less than monthly [facility] How hard is it for y ou to pay for the very basics like food, housing, medical care, and heating Somewhat hard [facility] Adult Depression Screening Assessment 5 [facility] Do you feel stress - tense, restless, nervous, or anxious, or unable to sleep at night because your mind is troubled all the time - these days [OSQ] Very much [facility] (I/We) worried michell er (my/our) food would run out before (I/we) got money to buy more. Sometimes true [facility] Start: 10-08-2020 Education 14 [facility] Start: 10-08-2020 Gender identity Identifies as female gender (finding) [facility] Start: 10-08-2020 Sexual orientation Bisexual (finding) [facility] Tobacco smoking status No Smokin g Status Entered [facility] Goals Date Patient Goal Desired Activity /State 04-27-2022 Goal Observation Functional Status Date Assessment Result Facility 05-02-2024 Functional Status Standard Safet y ID band on, Allergy Band on, Call device within reach, Bed in low position, Wheels locked, Upper/Half-Length side-rails up, Bedside Cart Locked, Safety level maintained [facility] Mental Status Date Assessment Result Facility 05-02-2024 Mental Status Orientation Oriented x 4 [facility] Clinical Notes 06-30-2020 to 05-02-2024 [...] temperature. Use toothpaste made for sensitive teeth. Salem gently up and down instead of sideways. Brushing sideways can wear away root surfaces if they are exposed. If your tooth is chipped or cracked, or if there is a large open cavity, put oil of cloves directly on the tooth to relieve pain. You can buy oil of cloves at [employer]. Some pharmacies carry an gwzv-pum-bojqxxz toothache kit. This contains a paste that you can put on the exposed tooth to make it less sensitive. Put a cold pack on your jaw over the sore area to help reduce pain. You may use dggp-pgu-trlijoj medicine to ease pain, unless your doctor [...] healthcare provider Pus drains from the tooth 9668-[address] [employer] [place] [address], [place] [address]. All rights reserved. This information is not [...] cloves at drugstores. Some pharmacies carry an cgen-vfx-pwthcds toothache kit. This contains a paste that you can put on the exposed tooth to make it less sensitive. Put a cold pack on your jaw over the sore area to help reduce pain. You may use hrfm-ifq-eyjiwhw medicine to ease pain, unless another medicine [...] Pus drains from the tooth or gum 5982-[address] [employer] [place] [address], [place] [address]. All rights reserved. This information is not intended as a substitute for professional medical care. Always follow your healthcare professional's instructions. Follow Up Care 05/02/2024 19:54:32 With:Call THAO Schneider Pt. Refferral [phone] Address:Unknown When:2-4 days [facility] Miguelina Rocha 05-02-2024 Emergency department Discharge summary Discharge Instructions Thank you for allowing [facility] to assist you with your healthcare needs. The following is important discharge information regarding your hospital visit. What to Do Next Instructions from Your Care Team Call the dentist next week. To schedule an appointment. No qualifying data available. Post Acute Orders No qualifying data available. You Need to Schedule the Following Appointments Follow Up with Call AMB New Pt. Refferral [phone] When:Within 2-4 days Allergies penicillin Medications Please [...] temperature. Use toothpaste made for sensitive teeth. [place] gently up and down instead of sideways. Brushing sideways can wear away root surfaces if they are exposed. If your tooth is chipped or cracked, or if there is a large open cavity, put oil of cloves directly on the tooth to relieve pain. You can buy oil of cloves at drugstores. Some pharmacies carry an eorn-gqz-nrwgakn toothache kit. This contains a paste that you can put on the exposed tooth to make it less sensitive. Put a cold pack on your jaw over the sore area to help reduce pain. You may use zvho-gbh-aavvjqw medicine to ease pain, unless your doctor [...] healthcare provider Pus drains from the tooth 8628-49[address] [employer] [place] [address]. All rights reserved. This information is not [...] cloves at drugstores. Some pharmacies carry an kzjj-qnj-nsvtbcz toothache kit. This contains a paste that you can put on the exposed tooth to make it less sensitive. Put a cold pack on your jaw over the sore area to help reduce pain. You may use ptcp-soq-aqphumq medicine to ease pain, unless another medicine [...] Pus drains from the tooth or gum 0577-[address] [employer] [place] [address]. All rights reserved. This information is not intended as a substitute for professional medical care. Always follow your healthcare professional's instructions. Additional Information VACCINATE! IT SAVES LIVES! Members of the community who have not yet received the COVID-19 vaccine and would like to receive it can visit one of [facility] vaccine clinics. There are many vaccine clinic locations within the [facility]. For locations and available times, please visit www.gettheshot.coronavirus.[place] .gov/. It is important to note that some COVID mobile vaccine clinics are held outdoors and may be canceled in rainy or stormy conditions. To learn more about pediatric vaccinations (ages 5-11), we invite you to visit the [facility] webpage. https://www.akComQichildrens.org/ pages/3631-Budsl-Xcuhdngbaxy-Fr pkipmsuk-Gyejk-Phhtxvlpg.html To learn more about the COVID-19 vaccine, we invite you to visit the CDC website for a list of frequently asked questions. https://www.cdc.gov/coronavirus /2019-ncov/vaccines/faq.html [facility] Patient Portal Access Instructions: Stay connected with your healthcare team and access your personal medical information anytime with the [facility] Patient Portal. If you would like a full copy of your medical records please contact the [facility] Medical Records Department Sunday through Sunday between 8a.m. and 4:30p.m. Please follow the directions below to access the portal: 1.Access the email account you provided upon registration to the [facility].2.Look for an invitation email from [facility].3.Open the email and access the invitation link: Accept Invitation to [facility]4.Fill in the required haq to create your account. Sign into [email or web address] with your username and password that you [...] you will allow to register on the [facility] Patient Portal for access to your information. You can also access the [facility] Patient Portal on the [employer] trenton. Simply click on Health Records under Health Data and then click on the [employer] logo. HOW TO SAFELY DISPOSE OF PRESCRIPTION [...] Call your local pharmacy or go to http://bit.Visualase/0B5Ex1r to find one close to you.3.Make use of household items: Use cat litter or old coffee grounds to dispose medications if other options are not available. Mix your drugs with these household products, seal them in an airtight container and throw it into the garbage. Call [facility]: [phone] to be sure your drugs can be [...] aware that I should contact my doctor. Patient/Rn Military Signature: Date/Time: Relationship to Patient: Witness Name/Signature: Date/Time: [facility] 03-04-2024 Note Discharge Instructio ns Discharge Summary [address] [address] [id number] 03/04/2024 Patient: MITZI LAWLER Sex: Female : 1995 Age: 28y Thank you for visiting [facility]. You have been evaluated today by Isma Recinos D.O. for the following condition(s): Principal Diagnosis Acute nontraumatic generalized abdominal pain. Acute generalized abdominal pain of unknown cause. INSTRUCTIONS Follow-up with: Treasure Cortes DNP, APRN, ALEJANDRINA, [facility], Adult and Pediatric, Family Care, , [address] [place] [address]. Follow up in two. Call for an appointment. (Return to the emergency department for increasing pain problems or concerns. Not sure what is causing her discomfort but it increases return). You have been given the following additional information: Unknown Causes of Abdominal Pain (Female) Patient Signature Facility Rn Military Date/Time 1 of 5 Discharge Instructions General Instructions with [facility] [address] [place] [address] [id number] 03/04/2024 Patient: MITZI LAWLER Sex: Female : 1995 Age: 28y Thank you for visiting [facility]. You have been evaluated today by Isma Recinos D.O. for the following condition(s): Principal Diagnosis Acute nontraumatic generalized abdominal pain. Acute generalized abdominal pain of unknown cause. INSTRUCTIONS Follow-up with: Treasure Cortes DNP, APRN, ALEJANDRINA, [facility], Family Care, , [address] [place] [address]. Follow up in two. Call for an [...] Rapid heart rate (more content not included)... [facility] 07-07-2023 Evaluation note Sat Jul 07 00 :26:20 EST 2023: No Assessment Information [facility] 06-04-2023 Note HNO ID: [id number] Author: BONNIE NAVARRO APRN.[employer] PRESS HAND Service: ? Author Type: Nurse Practitioner Type: [...] 06/24/2020t had 2 previous C sections in [place]. She desires a . I have asked her to obtain her operative report from her last delivery in [place]. I have also asked the patient to activate her IndigoVisionhart and I will send her EMMIS on [...] place, and time. (more content not included)... [facility] 03-26-2023 Evaluation note Mon Mar 26 [...] Stefany Aguirre LPN documented in this encounter [facility] 01-15-2023 Miscellaneous Notes Third and final call [...] primary care provider documented in this encounter [facility] 01-13-2023 Evaluation note Sat Jan 13 15 [...] Assessment Information [facility] 01-09-2023 Note HNO ID: [id number] Author: Juan R Szymanski APRN.[employer] HAND Service: ? Author Type: Nurse Practitioner Type: Progress Notes Filed: 01/09/2023 4:00 PM Note Text: Subjective HPI A nontoxic appearing female presents to urgent care with chief complaint of possible UTI. Duration of symptoms 1 week. Associated symptoms dysuria, frequency, and urgency. Patient has history of UTIs in past with similar signs and symptoms. Patient denies the use of any iooo-kfg-seuhtcl medications or home remedies for symptom management. [...] 06/24/2020t had 2 previous C sections in [place]. She desires a . I have asked her to obtain her operative report from her last delivery in [place]. I have also asked the patient to [...] Negative for myalgi (more content not included)... [facility] 01-09-2023 History of Presen t illness Narrative Subjective HPI A nontoxic appearing female presents to urgent care with chief complaint of possible UTI. Duration of symptoms 1 week. Associated symptoms dysuria, frequency, and urgency. Patient has history of UTIs in past with similar signs and symptoms. Patient denies the use of any ucuq-dqh-unabzss medications or home remedies for symptom management. [...] 1Pt had 2 previous C sections in [place]. She desires a . I have asked her to obtain her operative report from her last delivery in [place]. I have also asked the patient to [...] of care. This note was generated using Segetis software. It may contain errors in wording, punctuation, or spelling. Juan R Szymanski APRN.[employer] PR[employer] HAND documented in this encounter [facility] 01-08-2023 Evaluation note SunJan 08 03 :54:13 [...] baby is at least 5-6 months old [facility] Work Phone: 10-04-2021 History of Presen t [...] visit I spent 20 minutes with both qcgs-xb-ddto and zbi-faoz-ui-face time reviewing pt's records and discussing pt's clinical presentation and further management. Danni Tamez DO Obstetrics and Gynecology documented in this encounter [facility] 09-06-2021 Note Addended by: DANNI TAMEZ on: 09/06/2021 03:05 PM Modules accepted: Orders [facility] 09-06-2021 Note Addended by: DANNI TAMEZ on: 09/06/2021 03:05 PM Modules accepted: Orders [facility] 09-06-2021 Miscellaneous Notes Addended by: DANNI TAMEZ on: 09/06/2021 03:05 PM Modules accepted: Orders documented in this encounter [facility] 09-06-2021 History of Presen t [...] 38w2d Labs: -OB panel: records requested from [place] 04/11, never received; B-, antibody negative, hgb [...] given 06/21 -Rhogam: given 07/05 -GBS positive PAITENCE: 09/19/21 by 19 wk US that is consistent with pt's reported due date based on 1st trimester US done in [place] Route of delivery: repeat CS with tubal scheduled 09/14 risk factors: // EJ at 17 wks - Moved back to [place] from [place] - Was visiting one of her children in [place] but plans to deliver here - Records requested from [place], never received - labs and cultures obtained [...] Obstetrics and Gynecology documented in this encounter [facility] 09-06-2021 History of Presen t [...] 38w2d Labs: -OB panel: records requested from [place] 04/11, never received; B-, antibody negative, hgb [...] based on 1st trimester US done in [place] Route of delivery: repeat CS with tubal scheduled 09/14 risk factors: // EJ at 17 wks - Moved back to [place] from [place] - Was visiting one of her children in [place] but plans to deliver here - Records requested from [place], never received - labs and cultures obtained [...] Obstetrics and Gynecology documented in this encounter [facility] 08-30-2021 History of Presen t [...] weeks gestation of S/s of PTL/SAB given. [facility] rev'd. Patient to follow up in 1 week. Pt verbalized understanding. documented in this encounter [facility] 08-24-2021 History of Presen t [...] at 17 wks - Moved back to [place] from [place] - Was visiting one of her children in [place] but plans to deliver here - Records requested from [place], never received - labs and cultures obtained [...] Awais Steinberg M.D. documented in this encounter [facility] 08-17-2021 Evaluation + Plan note Associated Problem(s): Oral thrush Nystatin swish and swallow sent [facility] 08-17-2021 Miscellaneous Notes Associated Problem(s): Oral thrush Nystatin swish and swallow sent documented in this encounter [facility] 08-17-2021 History of Presen t [...] parts viscous lidocaine 2%, diphenhydramine 12.5mg/5mL, maalox 554ex-080nl-54ry/5mL, nystatin 100,000unit/mL Anna Sterling CNP documented in this encounter [facility] 08-12-2021 Telephone encounter Note Pt advised. [facility] 08-12-2021 Miscellaneous Notes Pt advised. Pt LVM via nurse line requesting refill. documented in this encounter [facility] 08-12-2021 Telephone encounter Note Pt LVM via nurse line requesting refill. [facility] 08-09-2021 History of Presen t illness Narrative Repeat C/section and Tubal scheduled for 09/14/21. documented in this encounter [facility] 08-08-2021 Instructions Danni Tamez DO - 08/08/2021 2:35 PM EDT She can call [facility]'s number at [phone] [facility] at [phone]. documented in this encounter [facility] 08-08-2021 History of Presen t [...] 34w0d Labs: -OB panel: records requested from [place] 04/11, never received; B-, antibody negative, hgb [...] at 17 wks - Moved back to [place] from [place] - Was visiting one of her children in [place] but plans to deliver here - Records requested from [place], never received - labs and cultures obtained [...] at 36 weeks. Staff message sent to operating room surgical technologist to schedule repeat CS around 39wks, anticipate on 09/14 at 39w2d per pt request Follow up in 2 weeks for return OB and NST Danni Tamez DO Obstetrics and Gynecology documented in this encounter [facility] 07-25-2021 History of Presen t [...] 32w0d Labs: -OB panel: records requested from [place] 04/11, never received; B-, antibody negative, hgb [...] at 17 wks - Moved back to [place] from [place] - Was visiting one of her children in [place] but plans to deliver here - Records requested from [place], never received - labs and cultures obtained [...] Obstetrics and Gynecology documented in this encounter [facility] 07-05-2021 History of Presen t [...] 29w1d Labs: -OB panel: records requested from [place] 04/11, never received; B-, antibody negative, hgb [...] at 17 wks - Moved back to [place] from [place] - Was visiting one of her children in [place] but plans to deliver here - Records requested from [place], never received - labs and cultures obtained [...] Obstetrics and Gynecology documented in this encounter [facility] 05-20-2021 History of Presen t illness Narrative Pt states son recently recovered from Bronchitis and she may have contracted it HPI Chief Complaint Patient presents with Cough HPI Patient presents to the ER with her son for evaluation. Mother started having a cough 3 days ago with stuffy nose and sneezing. She is approximately 23 weeks and follows up at [facility]. Her next appointment is not until [...] Medical History: Diagnosis Date Anxiety Bipolar depression ([facility]/HCC) Depression Manic depression (CMS/HCC) Post depression Suicidal ideations feb and Mar 2020 in [facility] Past Surgical History: Procedure Laterality Date SECTION, [...] is not until June 06 with her RESIDENTIAL ENERGY AUDITOR. IMPRESSION 1)acute covid 19 Procedures KIMMY Sharp 05/20/21 1657 documented in this encounter [facility] 05-20-2021 Hospital Discharg e instructions Janet [...] through Care Everywhere.Coronavirus Disease (COVID-19): General Info (Italian)documented in this encounter [facility] 05-09-2021 History of Presen t illness [...] by pt reported first trimester US in [place] equal to 19 wk US performed 04/27 (pt not certain of LMP) Delivery Mode: desires TOLAC Labs: -OB panel: records requested from [place] 04/11, never received; labs and cultures obtained [...] at 17 wks - Moved back to [place] from [place] - Was visiting one of her children in [place] but plans to deliver here - Records requested from [place], never received - labs and cultures obtained [...] Obstetrics and Gynecology documented in this encounter [facility] 04-26-2021 History of Presen t illness Narrative Labs reviewed and GC/cT/trich negative documented in this encounter [facility] 04-24-2021 History of Presen t illness Narrative Went over discharge paperwork with pt. Went over education. Answered all questions and pt got dressed and left unit Had first dose beginning of 2020, had bad reaction, doctor advised to not get second dose. Pt got biotech documented in this encounter [facility] 04-24-2021 History and physical note OB Triage Note/H&P SUBJECTIVE: Mitzi Lawler is a 25 y.o. at 18w6d PNC: adequate care with [facility] Complications: No complications identified. 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 Go to [email or web address] [email or web address] Enter N871 in the search box to learn more about Blood in the Urine: Care Instructions. Current as of: July 07, 2020 Content Version: 13.0 [employer]. Care instructions adapted under license by your healthcare professional. If you have questions about a medical condition or this instruction, always ask your healthcare professional. [employer] disclaims any warranty or liability for your use of this information. documented in this encounter [facility] 04-11-2021 History of Presen t illness Narrative INITIAL VISIT Patient Name: Mitzi Lawler : 1995 MR #: [id number] Mitzi Lawler is a 25 y.o. at [...] History Past Medical History: Diagnosis Date Alcoholism ([facility]) Anemia Chronic, trying to find fe supplement she can tolerate Anxiety Bipolar depression (HCC) Depression MDD Manic depression ([facility]) Post depression 4621-1393 Psychosis ([facility]) Pt reports she has had 3 psychotic breaks (all in 2019). Was in a psych institution ([facility]) PTSD (post-traumatic stress disorder) Rh incompatibility Substance abuse ([facility]) Marijuana, has not used for [...] reviewed. Benefits of and 10 steps reviewed. [facility] Guide given to patient. PACU Vitals 04/11/21 1017 BP: 110/75 Pulse: 82 SpO2: 97% FHTs: 140s via doppler Mitzi Lawler is a 25 y.o. at 17w0d gestation being seen today for her first obstetrical visit. PATIENCE : 09/19/2021, by Patient Reported Delivery Mode: RCS vs TOLAC Labs: -OB panel: records requested from [place] 04/11 -Genetic studies: declines -Anatomy US ordered 04/01, level 2 due to history of unknown psychiatric meds at beginning of -Flu vaccine: declines -COVID vaccine: partially vaccinated, Pfizer risk factors: // EJ at 17 wks - Moved back to [place] from [place] - Was visiting one of her children in [place] but plans to deliver here - Records requested from [place] // Hx CS x 2 - First [...] up in 4 weeks. Records requested from [place]. Will obtain any additional labs pending records received. Renato genetics. Danni Tamez DO Obstetrics and Gynecology See Provider Note. documented in this encounter [facility] 11-09-2020 History of Presen t [...] 2020 12:00 PM documented in this encounter [facility] 06-30-2020 History of Past i llness Narrative [...] 06/24/2020t had 2 previous C sections in [place]. She desires a . I have asked her to obtain her operative report from her last delivery in [place]. I have also asked the patient to activate her MyChart and I will send her EMMIS on and . I have advised her to watch these EMMIs prior to her next appointment. TKRN Obesity during 03/2021 Overview: 06/24/2020atient is obese. We will plan on GCT at new OB. TKRN documented as of this encounter (statuses as of 01/10/2023) [facility] History of Past illness Narrative* Problem Noted [...] 06/24/2020t had 2 previous C sections in [place]. She desires a . I have asked her to obtain her operative report from her last delivery in [place]. I have also asked the patient to activate her MyChart and I will send her EMMIS on and . I have advised her to watch these EMMIs prior to her next appointment. TKRN Obesity during 03/2021 Overview: 06/24/2020atient is obese. We will plan on GCT at new OB. TKRN documented as of this encounter (statuses as of 01/15/2023) [facility] History of Past illness Narrative* Problem Noted [...] 06/24/2020t had 2 previous C sections in [place]. She desires a . I have asked her to obtain her operative report from her last delivery in [place]. I have also asked the patient to activate her MyChart and I will send her EMMIS on and . I have advised her to watch these EMMIs prior to her next appointment. TKRN Obesity during 03/2021 Overview: 06/24/2020atient is obese. We will plan on GCT at new OB. TKRN documented as of this encounter (statuses as of 01/17/2023) [facility] No data available for this section [facility] Evaluation note* Diagnosis Encntr for suprvsn of normal preg, unsp, second trimester- Primary with 17 completed weeks gestation Bipolar depression (HCC) Bipolar I disorder, most recent episode (or current) depressed, unspecified Tobacco smoking affecting , antepartum Rh negative, antepartum History of Other postprocedural status Obesity affecting , antepartum [facility] Diagnosis Hematuria, gross Gross hematuria documented in this encounter [facility] note* Diagnosis Encntr for suprvsn of normal preg, unsp, second trimester- Primary with 21 completed weeks gestation documented in this encounter [facility] note* Diagnosis COVID-19- Primary documented in this encounter [facility] note* Diagnosis Encntr for suprvsn of normal preg, unsp, second trimester- Primary with 29 completed weeks gestation [facility] Diagnosis Encounter for supervision of other normal in third trimester- Primary with 32 completed weeks gestation Abnormal glucose tolerance test (GTT) during , antepartum Encounter for ultrasound to assess interval growth of fetus 32 weeks gestation of documented in this encounter [facility] note* Diagnosis Encounter for supervision of high risk in third trimester, antepartum- Primary with 34 completed weeks gestation Encounter for sterilization Sterilization documented in this encounter [facility] note* Diagnosis Oral thrush- Primary Candidiasis of mouth [facility] Diagnosis 36 weeks gestation of - Primary Encounter for ultrasound to assess interval growth of fetus Encounter for screening for Streptococcus B Screening examination for venereal disease Tobacco smoking affecting in third trimester [facility] Diagnosis 37 weeks gestation of - Primary Velamentous insertion of umbilical cord, antepartum Tobacco smoking affecting , antepartum Rh negative, antepartum History of Other postprocedural status Obesity affecting , antepartum [facility]* Diagnosis Encounter for supervision of high risk in third trimester, antepartum- Primary with 38 completed weeks gestation [facility] Diagnosis Encounter for supervision of high risk in third trimester, antepartum- Primary with 38 completed weeks gestation Dysuria documented [facility]* Diagnosis S/P section- Primary Other postprocedural status S/P tubal ligation Tubal ligation status documented in this encounter [facility] noteNo assessment information availableWSt. Elizabeth Hospital Work Phone: Evaluation note* Diagnosis Burning with urination- Primary Dysuria documented in this encounter [facility] noteNYAP-NVEvaluation noteNYAP-NVEvaluation note [facility] Discharge instructionsAdditional Instructions Take antibiotic as prescribed. Follow-up with dentist for definitive treatment plans.[facility] Work Phone: Reason for referral (narrative)No reason for referral information availableWSt. 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 It is your employer's responsibility [...] CNP Work injuries require treatment by a [facility] certified provider. If follow-up care is needed please call one of the [facility] L[facility] have it! [facility] locations below. Marlene Marcial: [phone], [address], [place] [address] [place]: [phone] [address] [place] [address] [place]: [phone] [place] [address] [employer]: [phone] [address], [address], [place] [address] [place]: [phone], [place] [address] * Attachments The following attachments cannot be sent through Care Everywhere. * Shoulder Pain (Italian) * Smoking Cessation: Health Benefits: General Info (Italian) documented in this encounter Assessments Diagnosis Strain [...] Documents on File Type Date Recorded Patient Rn Military Expl anation Power of Sifting Operator Latest Code Status on File Code [...] Documents on File Type Date Recorded Patient Rn Military Expl anation Advance Directives and Living Will Documents on File Type Date Recorded Patient Rn Military Expl anation Advance Directives and Living Will Documents on File Type Date Recorded Patient Rn Military Expl anation Advance Directives and Livin g Will 06/08/2021 10:56 AM Latest Code Status on File Code Status Date Activated Date Inactivated Comments Full Code 05/22/2021 5:12 PM 05/22/2021 8:07 PM Documents on File Type Date Recorded Patient Rn Military Expl anation Advance Directives and Livin g Will 07/22/2021 10:56 AM Latest Code Status on File Code Status Date Activated Date Inactivated Comments Full Code 07/22/2021 9:44 AM 07/22/2021 1:18 PM Full Code 05/22/2021 5:12 PM 05/22/2021 8:07 PM Documents on File Type Date Recorded Patient Rn Military Expl anation Advance Directives and Livin g [...] October 26, 2021 8 :15pm Power of Sifting Operator No October 26, 2021 8:15pm Advance Directive Response Recorded Date/ Time Living Will No June 15 1:49am Power of Sifting Operator No June 15, 2023 1:49am Advance Directive Response Recorded Date/ Time Do you have a Healthcare Power of Sifting Operator? No December 10, 2024 1:27pm Reason for Referral Specialty Diagnoses / Procedures Referred By Contac t Referred To Contact Obstetrics and Gynecology Diagnoses Bipolar depression (HCC) Encntr for suprvsn of normal preg, unsp, second trimester Procedures US Obstetric Detail Anatomy Transabdominal Single Fetus Danni Tamez, DO [address] [place] [address] Referral ID Status Reason Start Date Expiration Date V isits Requested Visits Authorized [id number] Authorized 05/02/2021 05/02/2022 1 1 Specialty Diagnoses / Procedures Referred By Contac t Referred To Contact Behavioral Health Diagnoses Bipolar depression (HCC) Danni Tamez, DO [address] [place] [address] Referral ID Status Reason Start Date Expiration Date V isits Requested Visits Authorized [id number] Pending Review 04/11/2021 04/11/2022 1 1 Specialty Diagnoses / Procedures Referred By Contac t Referred To Contact Maternal and Medicine Diagnoses Bipolar depression (HCC) Encntr for suprvsn of normal preg, unsp, second trimester Procedures US Obstetric Detail Anatomy Transabdominal Single Fetus Danni Tamez, DO [address] [place] [address] [place] [address] Chief Complaint and Reason for Visit Chief [...] received any records from her provider in [place]. She will have PNL's, pap and cultures [...] section and content) DATE CREATED AUTHOR 10/07/2020 [facility] DATE CREATED AUTHOR AUTHOR'S ORGANIZ ATION 05/20/2021 [facility] DATE CREATED AUTHOR AUTHOR'S ORGANIZ ATION 09/28/2021 [facility] DATE CREATED AUTHOR AUTHOR'S ORGANIZ ATION 02/25/2022 [facility] DATE CREATED AUTHOR AUTHOR'S ORGANIZ ATION 11/30/2022 [facility] DATE CREATED AUTHOR AUTHOR'S ORGANIZ ATION 03/26/2023 [facility] DATE CREATED AUTHOR AUTHOR'S ORGANIZ ATION 06/05/2023 [facility] DATE CREATED AUTHOR AUTHOR'S ORGANIZ ATION 03/09/2024 [facility] DATE CREATED AUTHOR AUTHOR'S ORGANIZ ATION 04/11/2024 [facility] DATE CREATED AUTHOR AUTHOR'S ORGANIZ ATION 05/11/2024 [facility] Care Teams (unrecognized sec tion and content) [employer] Relationship Specialty Start Date End Date No, Physician [facility] PCP - General 03/21/21 [employer] Relationship Specialty Start Date End Date No, Physician [facility] PCP - General 03/21/21 [employer] Relationship Specialty Start Date End Date No, Physician [facility] PCP - General 03/21/21 [employer] Relationship Specialty Start Date End Date Physician, No Pcp PCP - General 05/20/21 [employer] Relationship Specialty Start Date End Date No, Physician [facility] PCP - General 03/21/21 [employer] Relationship Specialty Start Date End Date No, Physician [facility] PCP - General 03/21/21 [employer] Relationship Specialty Start Date End Date No, Physician [facility] PCP - General 03/21/21 [employer] Relationship Specialty Start Date End Date No, Physician [facility] PCP - General 03/21/21 [employer] Relationship Specialty Start Date End Date No, Physician [facility] PCP - General 03/21/21 [employer] Relationship Specialty Start Date End Date No, Physician [facility] PCP - General 03/21/21 [employer] Relationship Specialty Start Date End Date No, Physician [facility] PCP - General 03/21/21 [employer] Relationship Specialty Start Date End Date No, Physician [facility] PCP - General 03/21/21 [employer] Relationship Specialty Start Date End Date No, Physician [facility] PCP - General 03/21/21 [employer] Relationship Specialty Start Date End Date No, Physician [facility] PCP - General 03/21/21 [employer] Relationship Specialty Start Date End Date No, Physician [facility] PCP - General 03/21/21 [employer] Relationship Specialty Start Date End Date No, Physician [facility] PCP - General 09/14/21 [employer] Relationship Specialty Start Date End Date No, Physician [facility] PCP - General 09/14/21 [employer] Relationship Specialty Start Date End Date No, Physician [facility] PCP - General 09/14/21 [employer] Relationship Specialty Start Date End Date Juan R Osorio MD [address] [place] [address] PCP - General Family Medicine 11/05/20 [employer] Relationship Specialty Start Date End Date Juan R Osorio MD [address] [place], [place] [id number] PCP - General Family Medicine 11/05/20 [employer] Relationship Specialty Start Date End Date Juan R Osorio MD [address] [place] [address] PCP - General Family Medicine 11/05/20 Team Status: Active Member Role Status Dates No Primary Care Physician Primary Care Provider Active Team Status: Inactive Member Role Status Dates No Primary Care Physician Primary Care Provider Active Dr. Myron Machuca , DO Emergency Provider Active [employer] Relationship Specialty Start Date End Date Juan R Osorio MD [address] [place] [address] PCP - General Family Medicine 11/05/20 11/06/23 [...] or prosecute any alcohol or drug abuse patient.[facility] Center[facility] the event this information is protected by the Federal Confidentiality of Alcohol and Drug Abuse Patient Records regulations: The Federal rules restrict any use of the information to criminally investigate or prosecute any alcohol or drug abuse patient.[facility] Center[facility] the event this information is protected by the Federal Confidentiality of Alcohol and Drug Abuse Patient Records regulations: The Federal rules restrict any use of the information to criminally investigate or prosecute any alcohol or drug abuse patient.[facility] Center[facility] the event this information is protected by the Federal Confidentiality of Alcohol and Drug Abuse Patient Records regulations: The Federal rules restrict any use of the information to criminally investigate or prosecute any alcohol or drug abuse patient.[facility] FOR RECORDS PERTAINING TO PATIENTS WHO ARE [...] BE BASED ON THE PRIMARY CLINICAL RECORDS. [facility] [employer] [facility]. provides no warranty or guarantee of the accuracy or completeness of information in this document.
== END 2024-12-10 13:35 | disposition home or self-care (01) ==
LOC: ED 13:32
PROVIDERS: Emergency Provider Emergency Medicine; Visit Provider Emergency Medicine
DX: K02.9 Dental caries, unspecified (principal); F17.210 Nicotine dependence, cigarettes, uncomplicated
CPT/HCPCS: 99282

== ENCOUNTER 2025-01-23 23:59 | Emergency (ER) | payer MEDICAID, SELFPAY ==
[2025-01-24] VITALS: BP 118/69; PULSE 81; RESP 16; TEMP 36.6; O2SAT 100; BMI 35.2
[2025-01-24 00:29] LABS: Hematocrit 42.3 % (37-47); Hemoglobin 13.7 g/dL (12.0-15.0); Immature Granulocytes Count 0.110 X10^3/uL (0.0-0.0); Mean Corp Hgb Conc 32.4 g/dL (32-36); Mean Corpuscular Volume 82.6 fL (81-99); Mean Platelet Vol. 11.1 fl (6.2-12.0); NRBC Flagged by Analyzer 0 % (0-5); Platelet Count 251 K/mm3 (150-450); RBC Distribution Width CV 13.5 % (11.6-14.6); RBC Distribution Width SD 40.7 fl (35.1-43.9); Red Blood Count 5.12 M/mm3 (4.2-5.4); White Blood Count 14.1 K/mm3 (4.4-11.0)
[2025-01-24 00:32] LABS: Color, Urine Yellow (Yellow); Glucose, Dipstick Normal (Normal); Ketone-Dipstick 5 mg/dl (Negative); Leukocyte Esterase-Dipstick Negative /ul (Negative); Nitrite-Dipstick Negative (Negative); Occult Blood-Urine 10 /ul (Negative); Protein-Dipstick 30 mg/dl (Negative); Specific Gravity, Urine 1.025 (1.002-1.030); Urine Bilirubin Dipstick Negative (Negative)
[2025-01-24 00:49] LABS: Internal QC Validated? YES +Cl - CLEAR BKGD; Pregnancy, Serum, hCG Quali. NEGATIVE Negative; Record Kit Lot#, Serum Preg. 0000962302
[2025-01-24 01:20] LABS: Lipase 35 U/L (13-75)
[2025-01-24 01:22] LABS: AST(SGOT) 20 U/L (<=31); Alanine Aminotransfer ALT/SGPT < 5 U/L (<=34); Albumin, Serum 4.0 g/dL (3.5-5.0); Alkaline Phosphatase 104 U/L (35-104); Anion Gap 13 (5-15); BUN 5 mg/dL (4-19); BUN/Creat Ratio 8.5 RATIO (10-20); Calcium,Total 9.2 mg/dL (7.6-11.0); Carbon Dioxide 24.3 mmol/L (21.0-32.0); Chloride 98 mmol/L (98-108); Estimated Creatinine Clearance 133.05 ml/min (50-250); Globulin 3.2 g/dL (2.2-4.2); Glucose 151 mg/dL (70-99); Potassium 2.8 mmol/L (3.3-5.1)
[2025-01-24 01:23] LABS: Squamous Epithelial Cells - UA > 100 SEEN /hpf (5-10)
[2025-01-24 01:24] LABS: Fine Granular Cast- Urine 0-5 SEEN /lpf (0-5); Mucous, Urine 3+ /hpf (<or=2+); Red Blood Cells-Urine 0-5 SEEN /hpf (0-5)
--- OUTSIDE RECORDS SUMMARY | 2025-01-24 01:40 | XMS RPT_ITS | CCD ---
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 [address] 75929 Bilirubin [Mass/Vol] 0.6 mg/dL Normal 0.2 - 1.0 [facility] Comment on above: Performed By: #### 2 80097 #### [facility],[address] [place] [address] 29790 Calcium [Mass/Vol] 8.9 mg/dL Normal 8.5 - 10.1 [facility] Comment on above: Performed By: #### 2 81300 #### [facility],[address] [place] [address] 73055 Chloride [Moles/Vol] 103 mmol/L Normal 98 - 107 [facility] Comment on above: Performed By: #### 2 70073 #### [facility],[address] [place] [address] 64878 CMP with eGFR Normal [facility] Comment on above: Result Comment: COMP REHENSIVE METABOLIC PANEL Performed By: #### 2 52157 #### [facility],[address] [place] [address] 67282 CO2 [Moles/Vol] 27.6 mmol/L Normal 21.0 - 32.0 [facility] Comment on above: Performed By: #### 2 90550 #### [facility],[address] [place] [address] 32278 Creatinine [Mass/Vol] 0.73 mg/dL Normal 0.55 - 1.02 [facility] Comment on above: Performed By: #### 2 79244 #### [facility],[address] [place] [address] 31778 GFR/1.73 sq M.predicted among non-blacks MDRD (S/P/Bld) [Vol rate/Area] mL/min/{1.73_m2} Normal 60 - 999 [facility] Comment on above: Performed By: #### 2 92276 #### [facility],[address] [place] [address] 90682 Result Comment: ACCO RDING TO THE NATIONAL KIDNEY DISEASE EDUCATION PROGRAM(NKDE), A NORMAL eGFR IS A VALUE GREATER THAN OR EQUAL TO 60 ML/MIN/1.73 SQ METERS. CHRONIC KIDNEY DISEASE: <60mL/MIN/1.73 SQ METERS KIDNEY FAILURE: <15mL/MIN/1.73 SQ METERS THIS TEST SHOULD ONLY BE USED FOR PATIENTS 18 YEARS OF AGE AND OLDER. Globulin (S) [Mass/Vol] 4.5 g/dL High 1.5 - 3.8 [facility] Comment on above: Performed By: #### 2 81973 #### [facility],[address] [place] [address] 33544 Glucose [Mass/Vol] 90 mg/dL Normal 74 - 106 [facility] Comment on above: Performed By: #### 2 87544 #### [facility],[address] [place] [address] 21476 Potassium [Moles/Vol] 3.2 mmol/L Low 3.5 - 5.1 [facility] Comment on above: Performed By: #### 2 98245 #### [facility],[address] [place] [address] 97822 Protein [Mass/Vol] 8.1 g/dL Normal 6.4 - 8.2 [facility] Comment on above: Performed By: #### 2 00306 #### [facility],[address] [place] [address] 25542 Sodium [Moles/Vol] 142 mmol/L Normal 136 - 145 [facility] Comment on above: Performed By: #### 2 88404 #### [facility],[address] [place] [address] 45209 Urea nitrogen [Mass/Vol] 4 mg/dL Low 7 - 18 [facility] Comment on above: Performed By: #### 2 21188 #### [facility],[address] [place] [address] ABDOMEN/PELVIS [facility] 2023 CT ABDOMEN/PELVIS [place] [address] Patient: MITZI LAWLER Phone#: : 1995 Age: 28 Gender: F Pt. Type: ER Account: [id number] Location: [facility] Ordering: ISMA RECINOS Exam Date: 03/04/2024/14:55 Family Phys: Charge Code: 759795 Physician: [place] Order #: [id number] Dose#: [id number] PROCEDURE: CT ABDOMEN/PELVIS WITH CONTRAST COMPARISON: [facility], CT, ABDOMEN/PELVIS W CON, 11/26/2023, 0:40. [...] Report - Page 2 of 2 Patient: MIZTI LAWLER Phone#: : 1995 Age: 28 Gender: F Pt. Type: ER Account: [id number] Location: 052 Ordering: ISMA RECINOS Exam Date: 03/04/2024/14:55 Family Phys: Charge Code: 817742 Physician: [place] Order #: [id number] Dose#: [id number] CONCLUSION: 1. No acute intra-abdominal or pelvic abnormality. 2. Fatty infiltration of the ascending colon, this can be seen with sequela of inflammatory bowel disease versus incidental finding. Dictated by: Britt Tarango MD on 03/04/2024 at 15:14 Approved by: Britt Tarango MD on 03/04/2024 at 15:24 Normal [facility] FACILITY CODING SUMMARYon FACILITY CODING SUMMARY Facility Coding Facility Coding Summary [address] [address] [id number] 03/04/2024 Patient: MITZI LAWLER Sex: Female : [...] Procedures from Providers: Procedures from Nurses/Facility: [facility] [id number] 1 of 2 Facility Coding This is a partial abstract of information documented in the full record. Players Assistant must use independent judgment in selecting codes. CPT copyright 2022 [employer]. All Rights Reserved. 2 of 2 Normal [facility] LIPASEon 03-04-2024 Lipase [Catalytic activity/Vol] 29.0 U/L Normal 15.0 - 78.0 [facility] Comment on above: Result Comment: *PLE ASE NOTE THAT RANGES FOR LIPASE HAVE CHANGED OF 05/25/23 DUE TO AN ASSAY UPDATE BY THE ROUTE DELIVERER.THE NEW ASSAY RANGE IS 6-250 U/L, WITH A REFERENCE RANGE OF 16-77 U/L. Performed By: #### 2 12726 #### [facility],[address] [place] [address] 02867 MED ADMINISTRATION DETAILon 03-04-2024 MED ADMINISTRATION DETAIL [employer] Medication Administration Record [address] [address] [id number] 03/04/2024 Patient: MITZI LAWLER Sex: Female : 1995 Age: 28y MEASUREMENTS: Wt: 93.0 kg, Ht/Lance: 62.0 in, BMI: 37.49 ALLERGIES: Penicillins Medication Ordered Medication Administration Date/Time 1 of 1 Normal [facility] NURSES CLINICAL REPORT (NOTE S)on 03-04-2024 NURSES CLINICAL REPORT (NOTES) Nurse Narrative Nurse Clinical Narrative [facility] [address] [place] [address] [id number] 03/04/2024 Patient: MITZI LAWLER Sex: Female : [...] Griggs R.N. Gallbladder Surgery -- 10:07 03/04/24 CYRUS Griggs R.N. Tonsillectomy Adenoidectomy -- 10:07 03/04/24 CYRUS Griggs R.N. -- 10:07 03/04/24 CYRUS [...] states feels the same. -- 10:10 03/04/24 EDT Hansel Griggs R.N. Interventions 10:03 03/04/24. Identification band [...] is warm and dry. -- 13:30 03/04/24 JELANIT Mariam Maxwell R.N. NURSING PROGRESS NOTES 14:13 [...] Mariam Luevano (more content not included)... Normal [facility] ORDER SHEET (CPOE ONLY)on ORDER SHEET (CPOE ONLY) Order Sheet Order Sheet [address] [place] [address] [id number] 03/04/2024 Patient: MITZI LAWLER Sex: Female : 1995 Age: 28y MEASUREMENTS: Wt: 93.0 kg, Ht/Lance: 62.0 in, BMI: 37.49 ALLERGIES: Penicillins MEDICATION/IV/DRIP/ FLUID ORDERS Order Description Priority Entered Acknowledged Completed LAB ORDERS Order Description Priority Entered Acknowledged Collected Completed CBC w Diff Stat Stat 14:06 03/04/2024 14:11 03/04/2024 14:18 03/04/2024 Mariam Ornelas Shauna Ewing, D.O. R.NVeronica R.N. CMP Stat Stat 14:06 03/04/2024 14:11 03/04/2024 14:18 03/04/2024 Mariam Ornelas Shauna Ewing, D.O. R.N. R.N. Lipase Stat Stat 14:06 03/04/2024 14:11 03/04/2024 14:18 03/04/2024 Mariam Ornelas Shauna Ewing, D.O. R.N. R.N. Urinalysis Stat Stat 14:06 03/04/2024 14:11 03/04/2024 14:18 03/04/2024 Mariam Ornelas Shauna Ewing, 1 of 2 Order Sheet Phoenix Howell. R.N. Urine - HCG Stat 14:06 03/04/2024 14:11 03/04/2024 14:18 03/04/2024 Stat Mariam Ornelas Shauna Ewing, D.O. R.N. R.NVeronica DIAGNOSTIC STUDY ORDERS Order Description Priority Entered Acknowledged Completed CT ABD/PEL w IV Cont Stat Stat 14:06 03/04/2024 14:11 14:18 Isma Recinos 03/04/2024 03/04/2024 Mariam Purcell R.N. R.N. Order Comments: 14:06 03/04/2024: Status: Unknown. Isma Recinos D.O. Reason for Study: Abdominal Internal Pain STAFF ORDERS Order Description Priority Entered Acknowledged Collected Completed IV Saline Lock 14:06 03/04/2024 14:11 03/04/2024 14:18 03/04/2024 Mariam Ornelas Shauna Ewing, D.O. R.N. R.NVeronica [Electronically signed by Isma Recinos D.O. (03/04/2024 18:50 EDT)] 2 of 2 Normal [facility] PHYS CLINICAL REPORT AND CORINNA Kirkpatrick 03-04-2024 PHYS CLINICAL REPORT AND JOSE Narrative Physician Clinical Narrative [facility] [address] [place] [address] [id number] 03/04/2024 Patient: MITZI LAWLER Sex: Female : [...] 1.50 - 7.10 Final EDT 03/04/2024 14:46 [place] # 0.62 x10/UL 0.20 - 1.00 Final [...] 78.0 Final UPDATE BY THE 16:19 EDT ROUTE DELIVERER.THE NEW ASSAY RANGE IS 6-250 U/L, WITH [...] Final Abnor (more content not included)... Normal [facility] PHYS CODING SUMMARY GLASS MOULD CLEANER AB [place] 03-04-2024 PHYS CODING SUMMARY GLASS MOULD CLEANER SHERINE Coding [place] [address] [id number] 03/04/2024 Patient: MITZI LAWLER Sex: Female : 1995 Age: 28y ICD-10 Codes R10.84: Generalized abdominal pain R10.84: Generalized abdominal pain This is a partial abstract of information documented in the full record. Players Assistant must use independent judgment in selecting codes. CPT copyright 2022 [employer]. All Rights Reserved. 1 of 1 Normal [facility] URINEon 03-04-2024 Beta HCG ( test) Ql (U) Negative Normal NEGATIVE [facility] Comment on above: Performed By: #### 2 38480 #### [facility],[address] [place] [address] EXTERNAL QC DONE? YES Normal [facility] Comment on above: Performed By: #### 2 34936 #### [facility],[address] [place] [address] 31457 INTERNAL QC PASS Normal [facility] Comment on above: Performed By: #### 2 12484 #### [facility],[address] [place] [address] 56292 URINALYSISon 03-04-2024 Amorphous 2+ Normal [facility] Comment on above: Performed By: #### 2 76357 #### [facility],[address] [place] [address] 13513 Bacteria 1+ Normal [facility] Comment on above: Performed By: #### 2 84741 #### [facility],[address] [place] [address] 71201 Bilirubin Ql (U) Negative Normal NORMAL: NEGATIVE [facility] Comment on above: Performed By: #### 2 87973 #### [facility],[address] [place] [address] 10889 Casts NONE Normal [facility] Comment on above: Performed By: #### 2 59494 #### [facility],[address] [place] [address] 00263 Clarity (U) SL. CLOUDY Abnormal NORMAL: CLEAR [facility] Comment on above: Performed By: #### 2 67925 #### [facility],[address] [place] [address] 82792 Color (U) YELLOW Normal NORMAL: YELLOW [facility] Comment on above: Performed By: #### 2 66861 #### [facility],[address] [place] [address],[facility] 60784 Crystals LM Nom (Urine sed) NONE Normal [facility] Comment on above: Performed By: #### 2 78933 #### [facility],[address] [place], [place] [address] Epi Cells FEW Normal [facility] Comment on above: Performed By: #### 2 73453 #### [facility],[address] [place], [place] [address] ERROR DUE TO TECH ERROR Normal [facility] Comment on above: Performed By: #### 2 17768 #### [facility],[address] [place] [address] 02588 Glucose Ql (U) NORM Normal NORMAL: NORMAL [facility] Comment on above: Performed By: #### 2 64049 #### [facility],[address] [place] [address] 71380 Hemoglobin Ql (U) Negative Normal NORMAL: NEGATIVE [facility] Comment on above: Performed By: #### 2 40657 #### [facility],[address] [place] [address] 56102 Ketone 15 Abnormal NORMAL: NEGATIVE [facility] Comment on above: Performed By: #### 2 80375 #### [facility],[address] [place] [address] 18571 Leukocytes 25 Abnormal NORMAL: NEGATIVE [facility] Comment on above: Performed By: #### 2 05143 #### [facility],[address] [place] [address] Mucous NONE Normal [facility] Comment on above: Performed By: #### 2 88694 #### [facility],[address] [place] [address] Nitrite Ql (U) Negative Normal NORMAL: NEGATIVE [facility] Comment on above: Performed By: #### 2 07819 #### [facility],[address] [place] [address] pH (U) 6.0 [pH] Normal NORMAL: 5.0-8.0 [facility] Comment on above: Performed By: #### 2 33649 #### [facility],[address] [place] [address] Protein Ql (U) 15 Abnormal NORMAL: NEGATIVE [facility] Comment on above: Performed By: #### 2 39154 #### [facility],[address] [place] [address] Rbc NONE Normal 0-3/hpf [facility] Comment on above: Performed By: #### 2 03191 #### [facility],[address] [place] [address] Sp [place] 1.020 Normal NORMAL: 1.010-1.030 [facility] Comment on above: Performed By: #### 2 01408 #### [facility],[address] [place] [address] Specimen Type R Normal [facility] Comment on above: Performed By: #### 2 26225 #### [facility],[address] [place] [address] Urinalysis dipstick W Reflex Microscopic panel (U) SEE BELOW Normal [facility] Comment on above: Result Comment: MICR OSCOPIC Performed By: #### 2 31769 #### [facility],[address] [place] [address] Urobilinog 4 Abnormal NORMAL: NORMAL [facility] Comment on above: Performed By: #### 2 77519 #### [facility],[address] [place] [address] 35576 Wbc 6-10 Normal 0-5/hpf [facility] Comment on above: Performed By: #### 2 64772 #### [facility],[address] [place] [address] 16974 Yeast RARE Normal [facility] Comment on above: Result Comment: ==== [...] 03/04/24.1547.MG . M Performed By: #### 2 77392 #### [facility],[address] [place] [address] 00563 VISIT SUMMARYon 03-04-2024 VISIT SUMMARY Visit Overview Visit Overview [address] [address] [id number] 03/04/2024 Patient: MITZI LAWLER Sex: Female : [...] GENERALIZED ABDOMINAL PAIN 3 of 3 Normal [facility] CBC + DIFFon 11-26-2023 Baso # 0.03 x10EE3/UL Normal 0.00 - 0.10 [facility] Comment on above: Performed By: #### 2 74469 #### [facility],[address] [place] [address] 45616 Basophils/100 WBC (Bld) 0.2 % Normal 0.0 - 2.0 [facility] Comment on above: Performed By: #### 2 60725 #### [facility],[address] [place] [address] CBC + DIFF Normal [facility] Comment on above: Result Comment: CBC- COMPLETE BLOOD COUNT Performed By: #### 2 26589 #### [facility],[address] [place] [address] EO # 0.20 x10EE3/UL Normal 0.00 - 0.50 [facility] Comment on above: Performed By: #### 2 09057 #### [facility],[address] [place] [address] Eosinophils/100 WBC (Bld) 1.7 % Normal 0.0 - 7.0 [facility] Comment on above: Performed By: #### 2 25395 #### [facility],[address] [place] [address] Erythrocyte distribution width (RBC) [Ratio] 14.6 % Normal 12.0 - 15.6 [facility] Comment on above: Performed By: #### 2 40842 #### [facility],[address] [place] [address] Hematocrit (Bld) [Volume fraction] 42.9 % Normal 34.0 - 46.0 [facility] Comment on above: Performed By: #### 2 18630 #### [facility],[address] [place], [place] [address] Hemoglobin (Bld) [Mass/Vol] 14.3 g/dL Normal 12.0 - 16.0 [facility] Comment on above: Performed By: #### 2 29556 #### [facility],[address] [place] [address] Lymph # 3.53 x10EE3/UL High 0.80 - 2.80 [facility] Comment on above: Performed By: #### 2 88707 #### [facility],[address] [place] [address] 15631 Lymphocytes/100 WBC (Bld) 30.5 % Normal 20.0 - 45.0 [facility] Comment on above: Performed By: #### 2 07146 #### [facility],[address] [place] [address] 47840 MANUAL DIFF N/A Normal [facility] Comment on above: Performed By: #### 2 18947 #### [facility],[address] [place] [address] 80336 MCH (RBC) [Entitic mass] 27 pg Normal 27 - 33 [facility] Comment on above: Performed By: #### 2 21056 #### [facility],[address] [place] [address] MCHC 33 X10 3 Normal 32 - 36 [facility] Comment on above: Performed By: #### 2 65696 #### [facility],[address] [place] [address] 22927 MCV (RBC) [Entitic vol] 82 fL Normal 80 - 99 [facility] Comment on above: Performed By: #### 2 68830 #### [facility],[address] [place] [address] 32224 [place] # 0.82 x10EE3/UL Normal 0.20 - 1.00 [facility] Comment on above: Performed By: #### 2 45203 #### [facility],[address] [place] [address] 48927 MONOS % 7.1 % Normal 0.0 - 10.0 [facility] Comment on above: Performed By: #### 2 06115 #### [facility],[address] [place] [address] 10875 Morphology Ayan (Bld) [Interp] N/A Normal [facility] Comment on above: Performed By: #### 2 47596 #### [facility],[address] [place] [address] 22082 Neut # 7.02 x10EE3/UL Normal 1.50 - 7.10 [facility] Comment on above: Performed By: #### 2 57196 #### [facility],[address] [place] [address] 86255 Neutrophils/100 WBC (Bld) 60.5 % Normal 46.0 - 76.0 [facility] Comment on above: Performed By: #### 2 93412 #### [facility],[address] [place] [address] 06972 PLATELET 284 x10EE3/UL Normal 150 - 450 [facility] Comment on above: Performed By: #### 2 65174 #### [facility],[address] [place] [address] 44979 Platelet mean volume (Bld) [Entitic vol] 8.4 fL Normal 6.6 - 10.5 [facility] Comment on above: Result Comment: AUTO MATED DIFFERENTIAL Performed By: #### 2 83499 #### [facility],[address] [place] [address] 93179 RBC 5.24 x 10EE6/UL Normal 4.10 - 5.30 [facility] Comment on above: Performed By: #### 2 16159 #### [facility],[address] [place] [address] 61266 WBC 11.6 x 10EE3/UL High 4.5 - 10.8 [facility] Comment on above: Performed By: #### 2 43302 #### [facility],[address] [place] [address] 68274 CMP with eGFRon 11-26-2023 AGE 28 years Normal [facility] Comment on above: Performed By: #### 2 44626 #### [facility],[address] [place] [address] 60056 Albumin [Mass/Vol] 3.3 g/dL Low 3.4 - 5.0 [facility] Comment on above: Performed By: #### 2 87969 #### [facility],[address] [place] [address] 78135 Albumin/Globulin [Mass ratio] 0.8 {ratio} Low 0.9 - 1.6 [facility] Comment on above: Performed By: #### 2 65434 #### [facility],[address] [place] [address] 01216 ALK PHOS 104 U/L Normal 46 - 116 [facility] Comment on above: Performed By: #### 2 96130 #### [facility],[address] [place] [address] 26204 ALT [Catalytic activity/Vol] 9 U/L Low 16 - 63 [facility] Comment on above: Performed By: #### 2 62265 #### [facility],[address] [place] [address] 19854 Anion gap [Moles/Vol] 12 mmol/L Normal 10 - 20 [facility] Comment on above: Performed By: #### 2 31344 #### [facility],[address] [place] [address] 98246 AST [Catalytic activity/Vol] 12 U/L Low 13 - 39 [facility] Comment on above: Performed By: #### 2 [id number] #### [facility],[address] [place] [address] 14269 B/C RATIO 10 ratio Normal 0 - 30 [facility] Comment on above: Performed By: #### 2 36708 #### [facility],[address] [place] [address] 99097 Bilirubin [Mass/Vol] 0.2 mg/dL Normal 0.2 - 1.0 [facility] Comment on above: Performed By: #### 2 29966 #### [facility],[address] [place] [address] 48205 Calcium [Mass/Vol] 9.4 mg/dL Normal 8.5 - 10.1 [facility] Comment on above: Performed By: #### 2 91148 #### [facility],[address] [place], [place] [id number] Chloride [Moles/Vol] 102 mmol/L Normal 98 - 107 [facility] Comment on above: Performed By: #### 2 98579 #### [facility],[address] [place] [address] CMP with eGFR Normal [facility] Comment on above: Result Comment: COMP REHENSIVE METABOLIC PANEL Performed By: #### 2 52011 #### [facility],[address] [place] [address] CO2 [Moles/Vol] 27.3 mmol/L Normal 21.0 - 32.0 [facility] Comment on above: Performed By: #### 2 23572 #### [facility],[address] [place] [address] Creatinine [Mass/Vol] 0.77 mg/dL Normal 0.55 - 1.02 [facility] Comment on above: Performed By: #### 2 28359 #### [facility],[address] [place] [address] GFR/1.73 sq M.predicted among non-blacks MDRD (S/P/Bld) [Vol rate/Area] mL/min/{1.73_m2} Normal 60 - 999 [facility] Comment on above: Performed By: #### 2 91483 #### [facility],[address] [place] [address] Result Comment: ACCO RDING TO THE NATIONAL KIDNEY DISEASE EDUCATION PROGRAM(NKDE), A NORMAL eGFR IS A VALUE GREATER THAN OR EQUAL TO 60 ML/MIN/1.73 SQ METERS. CHRONIC KIDNEY DISEASE: <60mL/MIN/1.73 SQ METERS KIDNEY FAILURE: <15mL/MIN/1.73 SQ METERS THIS TEST SHOULD ONLY BE USED FOR PATIENTS 18 YEARS OF AGE AND OLDER. Globulin (S) [Mass/Vol] 3.9 g/dL High 1.5 - 3.8 [facility] Comment on above: Performed By: #### 2 39753 #### [address] [address] Glucose [Mass/Vol] 107 mg/dL High 74 - 106 [facility] Comment on above: Performed By: #### 2 00226 #### [facility],[address] [place] [address]79 Potassium [Moles/Vol] 3.2 mmol/L Low 3.5 - 5.1 [facility] Comment on above: Performed By: #### 2 74191 #### [facility],[address] [place] [address] 31265 Protein [Mass/Vol] 7.2 g/dL Normal 6.4 - 8.2 [facility] Comment on above: Performed By: #### 2 50632 #### [facility],[address] [place] [address]11 Sodium [Moles/Vol] 138 mmol/L Normal 136 - 145 [facility] Comment on above: Performed By: #### 2 23439 #### [facility],[address] [place] [address] 59565 Urea nitrogen [Mass/Vol] 8 mg/dL Normal 7 - 18 [facility] Comment on above: Performed By: #### 2 58681 #### [facility],[address] [place] [address] ABDOMEN/PELVIS [facility] 2023 CT ABDOMEN/PELVIS [place] [address] Patient: MITZI LAWLER Phone#: : [phone] Age: 28 Gender: F Pt. Type: ER Account: [id number] Location: [facility] Ordering: DR. GRACIE SHARMA Exam Date: 11/26/2023/0:40 Family Phys: Charge Code: 669339 Physician: [place] Order #: [id number] Dose#: 33.4 PROCEDURE: CT ABDOMEN/PELVIS WITH CONTRAST [...] 28 Gender: F Pt. Type: ER Account: [id number] Location: 052 Ordering: DR. GRACIE SHARMA Exam Date: 11/26/2023/0:40 Family Phys: Charge Code: 627009 Physician: [place] Order #: [id number] Dose#: 33.4 CONCLUSION: 1. There is no evidence of acute abdominal or pelvic abnormality. Dictated by: Paola Seth MD on 11/26/2023 at 14:31 Approved by: Paola Seth MD on 11/26/2023 at 14:36 Normal [facility] LIPASEon 11-26-2023 Lipase [Catalytic activity/Vol] 39.0 U/L Normal 15.0 - 78.0 [facility] Comment on above: Result Comment: *PLE ASE NOTE THAT RANGES FOR LIPASE HAVE CHANGED OF 05/25/23 DUE TO AN ASSAY UPDATE BY THE ROUTE DELIVERER.THE NEW ASSAY RANGE IS 6-250 U/L, WITH A REFERENCE RANGE OF 16-77 U/L. Performed By: #### 2 15327 #### [facility],[address] [place] [address] URINEon 11-26-2023 Beta HCG ( test) Ql (U) Negative Normal NEGATIVE [facility] Comment on above: Performed By: #### 2 31767 ####[facility],[address] [place] [address] EXTERNAL QC DONE? YES Normal [facility] Comment on above: Performed By: #### 2 72070 ####[facility],[address] [place] [address] INTERNAL QC PASS Normal [facility] Comment on above: Performed By: #### 2 49015 ####[facility],[address] [place] [address] URINALYSISon 11-26-2023 Amorphous NONE Normal [facility] Comment on above: Performed By: #### 2 19249 ####[facility],[address] [place] [address] Bacteria 1+ Normal [facility] Comment on above: Performed By: #### 2 21105 ####[facility],[address] [place] [address] Bilirubin Ql (U) Negative Normal NORMAL: NEGATIVE [facility] Comment on above: Performed By: #### 2 76294 ####[facility],[address] [place] [address] Casts NONE Normal [facility] Comment on above: Performed By: #### 2 15814 ####[facility],[address] [place] [address] 38274 Clarity (U) sl.cloudy Normal NORMAL: CLEAR [facility] Comment on above: Performed By: #### 2 37147 ####[facility],[address] [place] [address] 73295 Color (U) yellow Normal NORMAL: YELLOW [facility] Comment on above: Performed By: #### 2 60079 ####[facility],[address] [place] [address] 87845 Crystals LM Nom (Urine sed) NONE Normal [facility] Comment on above: Performed By: #### 2 44123 ####[facility],[address] [place] [address] 06115 Epi Cells FEW Normal [facility] Comment on above: Performed By: #### 2 92068 ####[facility],[address] [place] [address] 22101 Glucose Ql (U) NORM Normal NORMAL: NORMAL [facility] Comment on above: Performed By: #### 2 54102 ####[facility],[address] [place] [address] 75685 Hemoglobin Ql (U) 10 Abnormal NORMAL: NEGATIVE [facility] Comment on above: Performed By: #### 2 48284 ####[facility],[address] [place] [address] 85644 Ketone Negative Normal NORMAL: NEGATIVE [facility] Comment on above: Performed By: #### 2 06777 ####[facility],[address] [place] [address] 55230 Leukocytes 500 Abnormal NORMAL: NEGATIVE [facility] Comment on above: Performed By: #### 2 56335 ####[facility],[address] [place] [address] 59541 Mucous 1+ Normal [facility] Comment on above: Performed By: #### 2 23159 ####[facility],[address] [place] [address] Nitrite Ql (U) Negative Normal NORMAL: NEGATIVE [facility] Comment on above: Performed By: #### 2 69734 ####[facility],[address] [place] [address] pH (U) 6 [pH] Normal NORMAL: 5.0-8.0 [facility] Comment on above: Performed By: #### 2 74114 ####[facility],[address] [place] [address] Protein Ql (U) 15 Abnormal NORMAL: NEGATIVE [facility] Comment on above: Performed By: #### 2 55738 ####[facility],[address] [place] [address] Rbc 0-5 Normal 0-3/hpf [facility] Comment on above: Performed By: #### 2 92070 ####[facility],[address] [place] [address] Sp [place] 1.015 Normal NORMAL: 1.010-1.030 [facility] Comment on above: Performed By: #### 2 65521 ####[facility],[address] [place] [address] Specimen Type Clean catch Normal [facility] Comment on above: Performed By: #### 2 17289 ####[facility],[address] [place] [address] Urinalysis dipstick W Reflex Microscopic panel (U) SEE BELOW Normal [facility] Comment on above: Result Comment: MICR OSCOPIC Performed By: #### 2 74520 ####[facility],[address] [place] [address] Urobilinog 1 Abnormal NORMAL: NORMAL [facility] Comment on above: Performed By: #### 2 01636 ####[facility],[address] [place] [address] Wbc 11-15 Normal 0-5/hpf [facility] Comment on above: Performed By: #### 2 09730 ####[facility],[address] [place] [address] 20200 Yeast NONE Normal [facility] Comment on above: Performed By: #### 2 38013 ####[facility],[address] [place], [place] [address] Absolute lymphocyte countOrd ered By: Myron Machuca on 06-15-2023 Lymphocytes Auto (Unsp spec) [#/Vol] 3.10 10*3/uL 0.83-4.51 [facility] Automated lymphocyte count a s percentage of total leukocytesOrdered By: Myron Machuca on 06-15-2023 Lymphocytes/100 WBC Auto (Unsp spec) 25.5 % 19-41 [facility] Basophil percentageOrdered B y: Myron Machuca on 06-15-2023 Basophils/100 WBC (Bld) 0.5 % 0-1 [facility] Chloride [Moles/Vol] 107 mmol/L 98-107 [facility] Eosinophils/100 WBC (Bld) 0.8 % 0-5 [facility] Glucose [Mass/Vol] 103 mg/dL 74-106 [facility] Comment on above: Fasting Glucose resu lt from 100 to 125 mg/dL suggests IMPAIRED HOMEOSTASIS per A.D.A. criteria. Hemoglobin (Bld) [Mass/Vol] 13.5 g/dL 12.0-15.0 [facility] Monocytes/100 WBC (Bld) 5.3 % 0-10 [facility] Neutrophils (Bld) [#/Vol] 8.2 10*3/uL 2.0-7.7 [facility] Neutrophils/100 WBC (Bld) 67.4 % 47-70 [facility] Potassium [Moles/Vol] 3.5 mmol/L 3.5-5.1 [facility] Sodium [Moles/Vol] 139 mmol/L 136-145 [facility] WBC (Bld) [#/Vol] 12.2 10*3/uL 4.4-11.0 [facility] Determination of erythrocyte mean corpuscular volume (MCV)Ordered By: Myron Machuca on 06-15-2023 MCV (RBC) [Entitic vol] 82.0 fL 81-99 [facility] Erythrocyte distribution wid th ratioOrdered By: Myron Machuca on 06-15-2023 Erythrocyte distribution width (RBC) [Ratio] 15.4 % 11.6-14.6 [facility] Erythrocyte distribution wid th standard deviationOrdered By: Myron Machuca on 06-15-2023 Erythrocyte distribution width (RBC) [Entitic vol] 45.5 fL 35.1-43.9 [facility] Hematocrit Auto (Bld) [Volum e fraction]Ordered By: Myron Machuca on 06-15-2023 Hematocrit (Bld) [Volume fraction] 44.7 % 37-47 [facility] Immature granulocytes/100 WB C Auto (Bld)Ordered By: Myron Machuca on 06-15-2023 Immature granulocytes/100 WBC (Bld) 0.500 % 0.0-0.9 [facility] Comment on above: IG% - Immature Granu locytes (promyelocytes, myelocytes and metamyelocytes) > 1% indicates that a LEFT SHIFT is Present. Laboratory - Chemistry and C hemistry - challengeOrdered By: Myron Machuca on 06-15-2023 CO2 [Moles/Vol] 26.0 mmol/L 21.0-32.0 [facility] Urea nitrogen/Creatinine [Mass ratio] 8.6 mg/mg 10-20 [facility] Laboratory - Hematology and Cell countsOrdered By: Myron Machuca on 06-15-2023 MCH (RBC) [Entitic mass] 24.8 pg 27.0-32.0 [facility] MCHC (RBC) [Mass/Vol] 30.2 g/dL 32-36 [facility] Nucleated RBC/100 WBC (Bld) [Ratio] 0 % 0-5 [facility] Platelets (Bld) [#/Vol] 311 10*3/uL 150-450 [facility] No Panel InformationOrdered By: Myron Machuca on 06-15-2023 Estimated Creatinine Clearance Calc 161.90 ml/min [facility] Estimated GFR (MDRD) Amer 159 mL/min >60 [facility] Comment on above: GFR Calc Estimated GFR (MDRD) Non-Af Amer 131 mL/min >60 [facility] Comment on above: Non- GFR Calc Platelet mean volume Bryan-Ec ker (Bld) [Entitic vol]Ordered By: Myron Machuca on 06-15-2023 Platelet mean volume (Bld) [Entitic vol] 10.8 fL 6.2-12.0 [facility] RBC Auto (Bld) [#/Vol]Ordere d By: Myron Machuca on 06-15-2023 RBC (Bld) [#/Vol] 5.45 10*6/uL 4.2-5.4 [facility] Serum or plasma calcium suzette urement (mass/volume)Ordered By: Myron Machuca on 06-15-2023 Calcium [Mass/Vol] 9.5 mg/dL 8.5-10.1 [facility] Serum or plasma choriogonado tropin detectionOrdered By: Myron Machuca on 06-15-2023 HCG ( test) Ql Negative [facility] Serum or plasma creatinine m easurement (mass/volume)Ordered By: Myron Machuca on 06-15-2023 Creatinine [Mass/Vol] 0.58 mg/dL 0.55-1.02 [facility] Comment on above: The validity of the calculated GFR & GFRAA in patients over 70 years has not been determined. Clinical correlation is essential. Serum or plasma urea nitroge n measurement (mass/volume)Ordered By: Myron Machuca on 06-15-2023 Urea nitrogen [Mass/Vol] 5 mg/dL 7-18 [facility] Thin prep Papanicolaou smear with manual screeningOrdered By: Myron Machuca on 06-15-2023 Thin prep Papanicolaou smear with manual screening 6 5-15 [facility] CNOVon 06-04-2023 CNOV Office Visit ([facility]) ---- MITZI LAWLER ([id number]) 1995 F Date Time Provider Department 06/04/23 11:30 AM BONNIE NAVARRO [facility] During your visit today, we recorded the [...] 06/24/2020t had 2 previous C sections in [place]. She desires a . I have asked her to obtain her operative report from her last delivery in [place]. I have also asked the patient to activate her All Access Tele[employer]t and I will send her EMMIS on [...] Left c (more content not included)... Normal [facility] 01-13-2023 CNPN Telephone (UCTR) ---- MITZI LAWLER ([id number]) 1995 F Date Time Provider Department 01/13/23 YANICK VICTOR [facility] During your visit today, we recorded the following information about you: Yanick Victor APRN.JOEY 01/13/2023 8:08 AM Signed Patient is on [...] Reviewed: 01/09/2023 Reviewed by: Juan R Szymanski APRN.MULTIFOCAL LENS ASSEMBLER - Fully Assessed Reason for Visit: Results [...] Encounter Status:Closed by ROSI GUILLERMO on 01/15/23 [facility] Bacteria Ur Culton 3 Bacteria identified [...] , Intermediate >32 , Resistant >64 Abnormal [facility] Comment on above: Performed By: #### 6 30-4 #### [facility] CLIA [id number] [address] [place] [address] [place] Rojelio 01-09-2023 CNOV Office Visit ([facility]) ---- MITZI LAWLER ([id number]) 1995 F Date Time Provider Department 01/09/23 3:45 PM JUAN R SZYMANSKI [facility] During your visit today, we recorded the following information about you: Temperature Pulse Respiration Blood pressure 97.9 degrees 64/minute 16/minute 116/68 Weight 96.2 kg Juan R Szymanski APRN.MULTIFOCAL LENS ASSEMBLER 01/09/2023 4:00 PM Signed Subjective HPI A nontoxic appearing female presents to urgent care with chief complaint of possible UTI. Duration of symptoms 1 week. Associated symptoms dysuria, frequency, and urgency. Patient has history of UTIs in past with similar signs and symptoms. Patient denies the use of any [id number] medications or home remedies for symptom management. [...] 06/24/2020t had 2 previous C sections in [place]. She desires a . I have asked her to obtain her operative report from her last delivery in [place]. I have also asked the patient to activate her MyChart and I will send her EMMIS on and . I have advised her to watch these EMMIs prior to her next appointment. 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 Normal [facility] UA DIP, URINE (POC)on 2022 BILIRUBIN UA (POCT) Negative Negative [facility] CLARITY UA (POCT) Cloudy [facility] COLOR UA (POCT) Yellow [facility] GLUCOSE UA (POCT) Negative Negative mg/dL [facility] HEMOGLOBIN/BLOOD UA (POCT) Small Abnormal Negative [facility] KETONE UA (POCT) Negative Negative mg/dL [facility] LEUKOCYTES UA (POCT) Small Abnormal Negative [facility] NITRITE UA (POCT) Positive Abnormal Negative [facility] PH UA (POCT) 5.0 4.5 - 8.0 [facility] Protein Ql (U) Negative Negative mg/dL [facility] SPECIFIC GRAVITY UA (POCT) 1.015 1.005 - 1.030 [facility] UROBILINOGEN UA (POCT) 0.2 E.U./dL Katherine l E.U./dL [facility] ACETAMINOPHENon 11-27-2022 Acetaminophen [Mass/Vol] ug/mL Normal 10.0 - 30.0 [facility] Comment on above: Performed By: #### A CETA #### [facility] [address] [place] [address] ALCOHOLon 11-27-2022 Ethanol [Mass/Vol] mg/dL Normal [facility] Comment on above: Result Comment: FOR MEDICAL USE ONLY. . REF VALUES <10 Performed By: #### A LC #### [address] [address] CBC AND DIFFERENTIALon 11-27 % AUTOMATED IMMATURE GRAN 0.4 % Normal 0.0 - 0.9 [facility] Comment on above: Result Comment: Deidre ture Granulocyte Count (IG) includes promyelocytes, myelocytes and metamyelocytes but does not include bands. Percent differential counts (%) should be interpreted in the context of the absolute cell counts (cells/L). Performed By: #### C BCDF #### [address] [address] Basophils (Bld) [#/Vol] 0.04 10*3/uL Normal 0.00 - 0.10 [facility] Comment on above: Performed By: #### C BCDF #### [address] [address] Basophils/100 WBC (Bld) 0.3 % Normal 0.0 - 2.0 [facility] Comment on above: Performed By: #### C BCDF #### [address] [address] Eosinophils (Bld) [#/Vol] 0.10 10*3/uL Normal 0.00 - 0.70 [facility] Comment on above: Performed By: #### C BCDF #### [address] [address] Eosinophils/100 WBC (Bld) 0.8 % Normal 0.0 - 6.0 [facility] Comment on above: Performed By: #### C BCDF #### [address] [address] Erythrocyte distribution width (RBC) [Ratio] 15.4 % High 11.5 - 14.5 [facility] Comment on above: Performed By: #### C BCDF #### [address] [address] Hematocrit (Bld) [Volume fraction] 42.2 % Normal 36.0 - 46.0 [facility] Comment on above: Performed By: #### C BCDF #### [address] [address] Hemoglobin (Bld) [Mass/Vol] 12.9 g/dL Normal 12.0 - 16.0 [facility] Comment on above: Performed By: #### C BCDF #### [address] [address] Lymphocytes (Bld) [#/Vol] 2.80 10*3/uL Normal 1.20 - 4.80 [facility] Comment on above: Performed By: #### C BCDF #### [address] [address] Lymphocytes/100 WBC (Bld) 23.0 % Normal 13.0 - 44.0 [facility] Comment on above: Performed By: #### C BCDF #### [address] [address] MCHC (RBC) [Mass/Vol] 30.6 g/dL Low 32.0 - 36.0 [facility] Comment on above: Performed By: #### C BCDF #### [address] [address] MCV (RBC) [Entitic vol] 79 fL Low 80 - 100 [facility] Comment on above: Performed By: #### C BCDF #### [address] [address] Monocytes (Bld) [#/Vol] 0.51 10*3/uL Normal 0.10 - 1.00 [facility] Comment on above: Performed By: #### C BCDF #### [address] [address] Monocytes/100 WBC (Bld) 4.2 % Normal 2.0 - 10.0 [facility] Comment on above: Performed By: #### C BCDF #### [address] [address] Neutrophils (Bld) [#/Vol] 8.67 10*3/uL High 1.20 - 7.70 [facility] Comment on above: Result Comment: Perc ent differential counts (%) should be interpreted in the context of the absolute cell counts (cells/L). Performed By: #### C BCDF #### [address] [address] Neutrophils/100 WBC (Bld) 71.3 % Normal 40.0 - 80.0 [facility] Comment on above: Performed By: #### C BCDF #### [address] [address] Platelets (Bld) [#/Vol] 317 10*3/uL Normal 150 - 450 [facility] Comment on above: Performed By: #### C BCDF #### [address] [address] RBC 5.32 x10E12/L High 4.00 - 5.20 [facility] Comment on above: Performed By: #### C BCDF #### [address] [address] WBC (Bld) [#/Vol] 12.2 10*3/uL High 4.4 - 11.3 [facility] Comment on above: Performed By: #### C BCDF #### [address] [address] COMPREHENSIVE PANELon 2022 Albumin [Mass/Vol] 3.8 g/dL Normal 3.4 - 5.0 [facility] Comment on above: Performed By: #### C MP #### [address] [address] ALP [Catalytic activity/Vol] 91 U/L Normal 33 - 110 [facility] Comment on above: Performed By: #### C MP #### [address] [address] ALT [Catalytic activity/Vol] 5 U/L Low 7 - 45 [facility] Comment on above: Result Comment: Marni ents treated with Sulfasalazine may generate falsely decreased results for ALT. Performed By: #### C MP #### [address] [address] Anion gap [Moles/Vol] 11 mmol/L Normal 10 - 20 [facility] Comment on above: Performed By: #### C MP #### [address] [address] AST [Catalytic activity/Vol] 9 U/L Normal 9 - 39 [facility] Comment on above: Performed By: #### C MP #### [address] [address] Bilirubin [Mass/Vol] 0.2 mg/dL Normal 0.0 - 1.2 [facility] Comment on above: Performed By: #### C MP #### [address] [address] Calcium [Mass/Vol] 9.1 mg/dL Normal 8.6 - 10.3 [facility] Comment on above: Performed By: #### C MP #### [address] [address] Chloride [Moles/Vol] 102 mmol/L Normal 98 - 107 [facility] Comment on above: Performed By: #### C MP #### [address] [address] Creatinine [Mass/Vol] 0.68 mg/dL Normal 0.50 - 1.05 [facility] Comment on above: Performed By: #### C MP #### [address] [address] eGFR FEMALE >90 Normal >90 [facility] Comment on above: Result Comment: CALC ULATIONS OF ESTIMATED GFR ARE PERFORMED USING THE 2020 CKD-EPI STUDY REFIT EQUATION WITHOUT THE RACE VARIABLE FOR THE IDMS-TRACEABLE CREATININE METHODS. https://jasn.asnjournals.org/content/early//ASN.83549 24757 Performed By: #### C MP #### [address] [address] Glucose [Mass/Vol] 180 mg/dL High 74 - 99 [facility] Comment on above: Performed By: #### C MP #### [address] [address] HCO3 (Bld) [Moles/Vol] 26 mmol/L Normal 21 - 32 [facility] Comment on above: Performed By: #### C MP #### [address] [address] Potassium [Moles/Vol] 3.1 mmol/L Low 3.5 - 5.3 [facility] Comment on above: Performed By: #### C MP #### [address] [address] Protein [Mass/Vol] 6.8 g/dL Normal 6.4 - 8.2 [facility] Comment on above: Performed By: #### C MP #### [address] [address] Sodium [Moles/Vol] 136 mmol/L Normal 136 - 145 [facility] Comment on above: Performed By: #### C MP #### [place] [id number] Urea nitrogen [Mass/Vol] 6 mg/dL Normal 6 - 23 [facility] Comment on above: Performed By: #### C MP #### [place] [id number] DRUG SCREEN,URINEon 11-28-19 23 AMPHETAMINE SCREEN,U Negative Normal NEGATIVE [facility] Comment on above: Result Comment: CUTO FF LEVEL: 500 NG/ML Cross-reactivity has been reported with high concentrations of the following drugs: buproprion, chloroquine, chlorpromazine, ephedrine, mephentermine, fenfluramine, phentermine, phenylpropanolamine, pseudoephedrine, and propranolol. Performed By: #### D RUG3 #### [place] [id number] BARBITURATES SCREEN,U Negative Normal NEGATIVE [facility] Comment on above: Result Comment: CUTO FF LEVEL: 200 NG/ML Performed By: #### D RUG3 #### [address] [address] BENZODIAZEPINES SCREEN,U Negative Normal NEGATIVE [facility] Comment on above: Result Comment: CUTO FF LEVEL: 200 NG/ML Performed By: #### D RUG3 #### [place] [id number] CANNABINOIDS SCREEN,U Positive Abnormal NEGATIVE [facility] Comment on above: Result Comment: CUTO FF LEVEL: 50 NG/ML Performed By: #### D RUG3 #### [place] [address] COCAINE METABOLITE SCREEN,U Negative Normal NEGATIVE [facility] Comment on above: Result Comment: CUTO FF LEVEL: 150 NG/ML Performed By: #### D RUG3 #### [place] [address] DRUG SCREEN COMMENT SEE BELOW Normal [facility] Comment on above: Result Comment: Drug screen results are presumptive and should not be used to assess compliance with prescribed medication. Contact the performing [facility] laboratory to add-on definitive confirmatory [...] directors. Performed By: #### D RUG3 #### [place] [address] FENTANYL SCREEN,URINE Negative Normal NEGATIVE [facility] Comment on above: Result Comment: CUTO FF LEVEL: 5 NG/ML Performed By: #### D RUG3 #### [place] [address] METHADONE SCREEN,U Negative Normal NEGATIVE [facility] Comment on above: Result Comment: CUTO FF LEVEL: 150 NG/ML The metabolite D-ldkoq-ugrxpspnbzjdgs (LAAM) is not detected by this method in concentrations that would be found in the urine of patients on LAAM therapy. Performed By: #### D RUG3 #### [place] [address] OPIATES SCREEN,U Negative Normal NEGATIVE [facility] Comment on above: Result Comment: CUTO FF LEVEL: 300 NG/ML The opiate screen does not detect fentanyl, meperidine, or tramadol. Oxycodone is not consistently detected (refer to Oxycodone Screen, Urine result). Performed By: #### D RUG3 #### [place] [address] OXYCODONE SCREEN,U Negative Normal NEGATIVE [facility] Comment on above: Result Comment: CUTO FF LEVEL: 100 NG/ML This test will accurately detect both oxycodone and oxymorphone. Performed By: #### D RUG3 #### [place] [address] PCP SCREEN,U Negative Normal NEGATIVE [facility] Comment on above: Result Comment: CUTO FF LEVEL: 25 NG/ML Cross-reactivity has been reported with dextromethorphan. Performed By: #### D RUG3 #### [place] [address] HCG,BETA-QUANTITATIVEon 07-0 HCG,BETA-QUANTITATIVE <2 Normal [facility] Comment on above: Result Comment: . Total HCG measurement is performed using the Julio César Rikki Access Immunoassay which detects intact HCG and free beta HCG subunit. . This test is not indicated for use as a tumor marker. HCG testing is performed using a different test methodology at [facility] than other physicians & surgeons hospital. Direct result comparison should only be made within the same method. REF VALUES NON FEMALE <5 MALES <5 Performed By: #### H CGQU #### [place] [address] Provider Note - ED v3on 070 Provider Note - ED v3 Provider Note: [...] tobacco, alcohol or illicit drugs. Fam: MEDS: [id number] Tylenol ALLERGIES: PCN ---- ---- PHYSICAL EXAM: [...] location that will accept her for admission. [facility] excepted the patient. I have filled out transfer paperwork with the patient and the patient will be transferred later this morning around 6:30 AM with planned admission at 7 AM. This chart was dictated with the use of interspireSubmit software within the framework of the current [...] The patient wants to be admitted to [facility] where she has been before - is [facility]. resident)(1). Triage Information: Most recent Vital [...] Med Status: (more content not included)... Normal [facility] SALICYLATEon 11-27-2022 SALICYLATE <3 Normal 4 - 20 [facility] Comment on above: Performed By: #### [facility] #### [place] [id number] [place] [address] Triage - EDon 11-27-2022 Triage - ED [...] The patient wants to be admitted to [facility] where she has been before - is [facility] resident). Triage Date/Time: 26-Nov-2022 23:04 JOSE: 2 Pain Rating (0-10): 0 = None Vital Signs: Temperature: 97.1F ( 36.2C) Blood Pressure: 124/83 Mean: Heart Rate: 84 Respiratory Rate: 15 Pulse Oximetry: 97% Height: 5 feet 2.00 inches. 157.4 CM Weight: 240.3 pounds. Calculated 109.0 kg. Calculated BMI (kg/m2): 43.996 Calculated BSA (m2) 2.18 [place] Coma Scale: Best Eye Response: (E4) spontaneous Best Motor Response: (M6) obeys commands Best Verbal Response: (V5) oriented [place] Score: 15 Cough lasting greater than 3 [...] Past Medical History Reviewedyes Electronic Signatures: Hai Davis) (Signed 26-Nov-2022 23:38) Authored: Quick Triage, Risk Screens, Pain, Travel History, Chart Review, Past Medical History Last Updated: 26-Nov-2022 23:38 by Hai Davis (HALI) Normal [facility] URINALYSIS WITH CULTURE IF I NDICATEDon 11-27-2022 Appearance (U) HAZY Normal CLEAR [facility] Comment on above: Performed By: #### U ARFX #### [place] [address] Bilirubin Ql (U) Negative Normal NEGATIVE [facility] Comment on above: Performed By: #### U ARFX #### [place] [address] Color (U) Yellow Normal STRAW,YELLOW [facility] Comment on above: Performed By: #### U ARFX #### [place] [id number] Glucose Ql (U) Negative Normal NEGATIVE [facility] Comment on above: Performed By: #### U ARFX #### [address] [address] Hemoglobin Ql (U) Negative Normal NEGATIVE [facility] Comment on above: Performed By: #### U ARFX #### [place] [address] Ketones Ql (U) Negative Normal NEGATIVE [facility] Comment on above: Performed By: #### U ARFX #### [place] [id number] Leukocyte esterase Test strip Ql (U) Negative Normal NEGATIVE [facility] Comment on above: Performed By: #### U ARFX #### [place] [address] Nitrite Ql (U) Negative Normal NEGATIVE [facility] Comment on above: Performed By: #### U ARFX #### [address] [address] pH (U) 5.0 [pH] Normal 5.0 - 8.0 [facility] Comment on above: Performed By: #### U ARFX #### [address] [address] Protein Ql (U) Negative Normal NEGATIVE [facility] Comment on above: Performed By: #### U ARFX #### [address] [address] Specific gravity (U) [Rel density] 1.018 Normal 1.005 - 1.035 [facility] Comment on above: Performed By: #### U ARFX #### [address] [address] Urobilinogen (U) [Mass/Vol] mg/dL Normal 0.0 - 1.9 [facility] Comment on above: Performed By: #### U ARFX #### [address] [address] COVID-19, MOLECULARon 2021 SARS-CoV-2 (COVID-19) RNA VERONICA+probe Ql (Unsp spec) Not detected Normal Not Detected [facility] Comment on above: Order Comment: [...] at the following links: For Healthcare Providers: https://www.fda.gov/media/424674/download For Patients: https://www.fda.gov/media/225905/download Performed By: #### L [id number] #### C LAB [address] [place], [place] [address] Zane Lynch M.D. [id number] OB FOLLOW UP TRANSABDOMIN AL SINGLE FETUSon 08-24-2021 OB FOLLOW UP TRANSABDOMINAL SINGLE FETUS Today: Growth AUA =35w3d PATIENCE by US = 09/25/2021 FHR: 150 bpm Presentation: Cephalic EFW:2719 g or 6lb 0oz 33% MARLENE: 11.40 cm Placenta: Posterior Movement: observed No gross anomalies visualized. Standard limitations of ultrasound apply. Rib Matcher And Fitter: Laurne Moyer RDMS Attending Note I have reviewed the images and agree with the above assessment. Impression/Recommen dation: Images reviewed. Agree with report as written. Results communicated during visit. Awais Steinberg MD Attending Physician [facility] Physician [facility] Obstetrics and Gynecology Dictated by: AWAIS STEINBERG on SunAug 24, 2021 11:17:17 AM EDT Transcribed by: AWAIS STEINBERG on SunAug 24, 2021 11:17:17 AM EDT Finalized by: AWAIS STEINBERG on SunAug 24, 2021 11:17:17 AM EDT Normal [facility] Comment on above: Order Comment: This back office order was created through the Ultrasound Visit Navigator section. Today: Growth AUA =35w3d PATIENCE by US = 09/25/2021 FHR: 150 bpm Presentation: Cephalic EFW:2719 g or 6lb 0oz 33% MARLENE: 11.40 cm Placenta: Posterior Movement: observed No gross anomalies visualized. Standard limitations of ultrasound apply. Rib Matcher And Fitter: Lauren Moyer RDMS Attending Note I have reviewed the images and agree with the above assessment. Impression/Recommen dation: Images reviewed. Agree with report as written. Results communicated during visit. Awais Steinberg MD Attending Physician [facility] Obstetrics and Gynecology [facility] Radiology Study observation (narrative) [facility] OB FOLLOW UP TRANSABDOMIN AL SINGLE FETUSon 07-25-2021 Today: Growth AUA =32w1d PATIENCE by US = 09/18/21 FHR: 126 bpm Presentation: BREECH EFW:1903 g or 4lb 3oz 42% MARLENE: 16.28 cm Placenta: Posterior fundal Movement: observed No gross anomalies visualized. Standard limitations of ultrasound apply. Rib Matcher And Fitter: Lauren Moyer RDMS Agree with water filterer's report as above. EFW 42%ile, MARLENE wnl. Breech presentation. Recommend follow up scan at 36 weeks to reassess growth and position. Danni Tamez DO Obstetrics and Gynecology GE RIS [facility] Radiology Study observation (narrative) [facility] US OB FOLLOW UP TRANSABDOMINAL SINGLE FETUS Today: Growth AUA =32w1d PATIENCE by US = 09/18/21 FHR: 126 bpm Presentation: BREECH EFW:1903 g or 4lb 3oz 42% MARLENE: 16.28 cm Placenta: Posterior fundal Movement: observed No gross anomalies visualized. Standard limitations of ultrasound apply. Rib Matcher And Fitter: Lauren Moyer RDMS Agree with water filterer's report as above. EFW 42%ile, MARLENE wnl. Breech presentation. Recommend follow up scan at 36 weeks to reassess growth and position. Danni Tamez DO Obstetrics and Gynecology Dictated by: DANNI TAMEZ on SunJul 25, 2021 2:44:43 PM EST Transcribed by: DANNI TAMEZ on SunJul 25, 2021 2:44:43 PM EST Finalized by: DANNI TAMEZ on SunJul 25, 2021 2:44:43 PM EST Normal [facility] Comment on above: Order Comment: This back office order was created through the Ultrasound Visit Navigator section. SARS-CoV-2 (COVID-19) RNA NA A+probe Ql (Resp)Ordered By: Tevin Bains on 05-20-2021 Interpretation and review of laboratory results Abnormal [facility] SARS-CoV-2 (COVID-19) RdRp gene VERONICA+probe Ql (Resp) Detected Abnormal Not Detected [facility] SARS-CoV-2 RNA Resp Ql VERONICA+p robeon 05-20-2021 SARS-CoV-2 (COVID-19) RNA VERONICA+probe Ql (Resp) Detected Invalid Interpretation Code Not Detected [facility] Comment on above: Performed By: #### 9 4500-6 #### [facility] [address] [place] [address] N. gonorrhoeae DNA VERONICA+probe Ql (U)on 04-25-2021 Trichomonas vaginosis Negative Normal Negative [facility] Comment on above: Performed By: #### 2 1416-3 #### [facility] LAB [address] [place] [address] Laboratory - Specimen inform ationon 04-24-2021 Specimen source Nom (Unsp spec) Hold for add-ons. [facility] Comment on above: Auto resulted. No Panel Informationon 04-24 [facility] Nuclear IgG IA Ql (S)on 03-29 Bilirubin, Urine Negative Normal Negative [facility] Comment on above: Performed By: #### 2 9950-3 #### [facility] [address] [place] [address] Blood, Urine Negative Normal Negative [facility] Comment on above: Performed By: #### 2 9950-3 #### [facility] [address] [place] [address] Clarity (U) Clear Normal Clear [facility] Comment on above: Performed By: #### 2 9950-3 #### [facility] [address] [place] [address] Color (U) Yellow Normal Yellow [facility] Comment on above: Performed By: #### 2 9950-3 #### [facility] [address] [place] [address] Glucose Ql (U) Normal Normal Normal [facility] [place] Comment on above: Performed By: #### 2 9950-3 #### [facility] [address] [place] [address] Ketones Ql (U) Negative Normal Negative [facility] [place] Comment on above: Performed By: #### 2 9950-3 #### [facility] [address] [place] [address] Leukocytes, Urine Negative Normal Negative [facility] Comment on above: Performed By: #### 2 9950-3 #### [facility] [address] [place] [address] Nitrite, Urine Negative Normal Negative [facility] [place] Comment on above: Performed By: #### 2 9950-3 #### [facility] [address] [place] [address] pH (U) 6.0 [pH] Normal 5.0-8.0 [facility] Comment on above: Performed By: #### 2 9950-3 #### [facility] [address] [place] [address] Protein, Urine Negative Normal Negative [facility] [place] Comment on above: Performed By: #### 2 9950-3 #### [facility] [address] [place] [address] Specific [place] Urine 1.017 Normal 1.002-1.030 [facility] Comment on above: Performed By: #### 2 9950-3 #### [facility] [address] [place] [address] Urobilinogen, Urine Normal Normal Normal [facility] Comment on above: Performed By: #### 2 9950-3 #### [facility] [address] [place] [address] Bilirubin Ql (U) Negative Negative mg/dL [facility] [...] Specific gravity (U) [Rel density] 1.017 [facility] Urobilinogen (U) [Mass/Vol] Normal Normal mg/dL [facility] XR Chest PA and Lateralon IMPRESSION: No acute radiographic abnormality. Sewer Pipe Offbearer: MERLY Transcribe Date/Time: Nov 09 2020 12:14P Dictated by : MORIAH MONTES DE OCA MD This examination was interpreted and the report reviewed and electronically signed by: MORIAH MONTES DE OCA MD on Nov 09 2020 12:16PM [facility] DIVISION OF RADIOLOGY * * *Final Report* [...] acute osseous abnormality. DIVISION OF RADIOLOGY Provider, [facility] - 11/09/2020 * * *Final Report* * [...] abnormality. IMPRESSION IMPRESSION: No acute radiographic abnormality. Sewer Pipe Offbearer: MERLY Transcribe Date/Time: Nov 09 2020 12:14P Dictated by : MORIAH MONTES DE OCA MD This examination was interpreted and the report reviewed and electronically signed by: MORIAH MONTES DE OCA MD on Nov 09 2020 12:16PM EST [facility] Radiology Study observation (narrative) [facility] XR Chest PA and LateralOrder ed By: [facility] Provider on 11-09-2020 [facility] CR Shoulder 2+ Views Righton 01-07-2020 CR Shoulder 2+ Views Right Patient Name: MITZI LAWLER Diagnostic Radiology Exam Date/Time 01/07/2020 20:51:16 EDT Exam CR Shoulder 2+ Views Right Ordering Physician RADHA PEÑA, DEANNE Accession Number [id number] CPT4 Codes 04394 () Reason For Exam pain Report RIGHT [...] Transcribed Date and Time: 01/07/2020 9:20 Normal [facility] ED Provider Noteon 0 ED Provider Note [facility] ED eMERGENCY dEPARTMENT eNCOUnter Pt Name: Mitzi Lawler Birthdate 1995 Date of evaluation: 01/07/2020 Provider: Deanne Peña, AIR MOVING TECHNICIAN - MULTIFOCAL LENS ASSEMBLER This patient was evaluated within my scope [...] file Gets together: Not on file Attends anglican service: Not on file Active member of [...] nursing note (more content not included)... Normal [facility] XR Shoulder Right 2 VWon Patient Name: MITZI LAWLER ---Diagnostic Radiology--- Exam Date/Time 01/07/2020 20:51:16 EDT Exam CR Shoulder 2+ Views Right Ordering Physician RADHA PEÑA LAURA Accession Number [id number] CPT4 Codes 30917 () Reason For Exam pain Report RIGHT [...] WENDELL Transcribed Date and Time: 01/07/2020 9:20 [place], [place], [facility] Incoming Radiology Results From [facility] - 01/07/2020 9:21 PM EDT Patient Name: MITZI LAWLER ---Diagnostic Radiology--- Exam Date/Time 01/07/2020 20:51:16 EDT Exam CR Shoulder 2+ Views Right Ordering Physician RADHA PEÑA LAURA Accession Number [id number] CPT4 Codes 45752 () Reason For Exam pain Report RIGHT [...] WENDELL Transcribed Date and Time: 01/07/2020 9:20 [place], [place] Vital Signs Date Time Vital Sign Value Performing Clinician Facility 12-10-2024 13:03-0400 Body height 157.48 cm No Primary Care Physician [facility] 12-10-2024 13:03-0400 Body mass index (BMI) [Ratio] 35.7 kg/m2 No Primary Care Physician [facility] 12-10-2024 13:03-0400 Body temperature 98.6 [degF] No Primary Care Physician [facility] 12-10-2024 13:03-0400 Body weight 88.67 kg No Primary Care Physician [facility] 12-10-2024 13:03-0400 Diastolic blood pressure 85 mm[Hg] No Primary Care Physician [facility] 12-10-2024 13:03-0400 Heart rate 81 /min No Primary Care Physician [facility] 12-10-2024 13:03-0400 Respiratory rate 18 /min No Primary Care Physician [facility] 12-10-2024 13:03-0400 SaO2% (BldA) [Mass fraction] 100 % No Primary Care Physician [facility] 12-10-2024 13:03-0400 Systolic blood pressure 138 mm[Hg] No Primary Care Physician [facility] 05-02-2024 20:08-0500 Body height 157.5 cm ISMA CONTRERAS MD [facility] 05-02-2024 20:08-0500 Body temperature 98.42 [degF] ISMA CONTRERAS MD [facility] 05-02-2024 20:08-0500 Body weight 94 kg ISMA CONTRERAS MD [facility] 05-02-2024 20:08-0500 Diastolic Blood Pressure Non-Invasive 91 mm[Hg] ISMA CONTRERAS MD [facility] 05-02-2024 20:08-0500 Heart rate 78 /min ISMA CONTRERAS MD [facility] 05-02-2024 20:08-0500 Respiratory rate 16 /min ISMA CONTRERAS MD [facility] 05-02-2024 20:08-0500 Systolic Blood Pressure Non-Invasive 125 mm[Hg] ISMA CONTRERAS MD [facility] 06-15-2023 04:56-0500 Diastolic blood pressure 55 mm[Hg] [facility] 06-15-2023 04:56-0500 Heart rate 78 /min [facility] 06-15-2023 04:56-0500 Respiratory rate 16 /min [facility] 06-15-2023 04:56-0500 SaO2% (BldA) [Mass fraction] 98 % [facility] 06-15-2023 04:56-0500 Systolic blood pressure 109 mm[Hg] [facility] 06-15-2023 01:49-0500 Body height 157.48 cm [facility] 06-15-2023 01:49-0500 Body mass index (BMI) [Ratio] 41.3 kg/m2 [facility] 06-15-2023 01:49-0500 Body temperature 97.3 [degF] [facility] 06-15-2023 01:49-0500 Body weight 102.4 kg [facility] 01-09-2023 15:45-0400 Body temperature 97.9 [degF] Juan R Pendlebury AIR MOVING TECHNICIAN.MULTIFOCAL LENS ASSEMBLER Work Phone: [facility] 01-09-2023 15:45-0400 Body weight 96.16 kg Juan R Pendlebury AIR MOVING TECHNICIAN.MULTIFOCAL LENS ASSEMBLER Work Phone: [facility] 01-09-2023 15:45-0400 Diastolic blood pressure 68 mm[Hg] Juan R Pendlebury AIR MOVING TECHNICIAN.MULTIFOCAL LENS ASSEMBLER Work Phone: [facility] 01-09-2023 15:45-0400 Heart rate 64 /min Juan R Pendlebury AIR MOVING TECHNICIAN.MULTIFOCAL LENS ASSEMBLER Work Phone: [facility] 01-09-2023 15:45-0400 Respiratory rate 16 /min Juan R Pendlebury AIR MOVING TECHNICIAN.MULTIFOCAL LENS ASSEMBLER Work Phone: [facility] 01-09-2023 15:45-0400 SaO2% (BldA) [Mass fraction] 98 % [facility] AIR MOVING TECHNICIAN.MULTIFOCAL LENS ASSEMBLER Work Phone: [facility] 01-09-2023 15:45-0400 Systolic blood pressure 116 mm[Hg] [facility] AIR MOVING TECHNICIAN.MULTIFOCAL LENS ASSEMBLER Work Phone: [facility] 11-27-2022 03:00-0400 Diastolic blood pressure 79 mm[Hg] No Pcp Required [facility] 11-27-2022 03:00-0400 Heart rate 80 /min No Pcp Required [facility] 11-27-2022 03:00-0400 Respiratory rate 14 /min No Pcp Required [facility] 11-27-2022 03:00-0400 SaO2% (BldA) [Mass fraction] 98 % No Pcp Required [facility] 11-27-2022 03:00-0400 Systolic blood pressure 109 mm[Hg] No Pcp Required [facility] 05-09-2022 19:45-0500 Body height 156.84 cm Clementina Carrillo Other [facility] 05-09-2022 19:45-0500 Body height 157 cm Clementina Carrillo Other [facility] 05-09-2022 19:45-0500 Body mass index (BMI) [Ratio] 42.4 kg/m2 Clementina Carrillo Other [facility] 05-09-2022 19:45-0500 Body temperature 97.3 [degF] Clementina Carrillo Other [facility] 05-09-2022 19:45-0500 Body weight 104.33 kg Clementina Carrillo Other [facility] 05-09-2022 19:45-0500 Body weight 104 kg Clementina Carrillo Other [facility] 05-09-2022 19:45-0500 Heart rate 82 /min Clementina [...] Body weight 107 kg Clementina Carrillo Other [facility] 04-11-2022 18:02-0500 Heart rate 79 /min Clementina [...] Body weight 101 kg Clementina Carrillo Other [facility] 11-22-2021 21:24-0400 Heart rate 88 /min Clementina Carrillo Other [facility] 10-26-2021 20:15-0400 SaO2% (BldA) [Mass fraction] 98 % [facility] Work Phone: 10-26-2021 20:06-0400 Body height 157.48 cm [facility] Work Phone: 10-26-2021 20:06-0400 Body mass index (BMI) [Ratio] 41.3 kg/m2 [facility] Work Phone: 10-26-2021 20:06-0400 Body temperature 96.7 [degF] [facility] Work Phone: 10-26-2021 20:06-0400 Body weight 102.6 kg [facility] Work Phone: 10-26-2021 20:06-0400 Diastolic blood pressure 97 mm[Hg] [facility] Work Phone: 10-26-2021 20:06-0400 Heart rate 95 /min [facility] Work Phone: 10-26-2021 20:06-0400 Respiratory rate 18 /min [facility] Work Phone: 10-26-2021 20:06-0400 Systolic blood pressure 137 mm[Hg] [facility] Work Phone: 10-04-2021 11:12-0400 Body mass index (BMI) [Ratio] 39.32 kg/m2 [facility] Work Phone: [facility] 10-04-2021 11:12-0400 Body temperature 97.9 [degF] [facility] Work Phone: [facility] 10-04-2021 11:12-0400 Body weight 97.52 kg Danni Busuito DO Work Phone: [facility] 10-04-2021 11:12-0400 Diastolic blood pressure 77 mm[Hg] Danni Busuito DO Work Phone: [facility] 10-04-2021 11:12-0400 Heart rate 72 /min Danni Busuito DO Work Phone: [facility] 10-04-2021 11:12-0400 Respiratory rate 16 /min Danni Busuito DO Work Phone: [facility] 10-04-2021 11:12-0400 SaO2% (BldA) [Mass fraction] 97 % Danni Busuito DO Work Phone: [facility] 10-04-2021 11:12-0400 Systolic blood pressure 113 mm[Hg] Danni Busuito DO Work Phone: [facility] 09-06-2021 13:38-0400 Body mass index (BMI) [Ratio] 42.43 kg/m2 Danni Busuito DO Work Phone: [facility] 09-06-2021 13:38-0400 Body temperature 98.29 [degF] Danni Busuito DO Work Phone: [facility] 09-06-2021 13:38-0400 Body weight 105.23 kg Danni Busuito DO Work Phone: [facility] 09-06-2021 13:38-0400 Diastolic blood pressure 69 mm[Hg] Danni Busuito DO Work Phone: [facility] 09-06-2021 13:38-0400 Heart rate 77 /min Danni Busuito DO Work Phone: [facility] 09-06-2021 13:38-0400 Respiratory rate 18 /min Danni Busuito DO Work Phone: [facility] 09-06-2021 13:38-0400 SaO2% (BldA) [Mass fraction] 97 % Danni Tamez DO Work Phone: [facility] 09-06-2021 13:38-0400 Systolic blood pressure 105 mm[Hg] Danni Guidoo Work Phone: [facility] 08-30-2021 13:20-0400 Body mass index (BMI) [Ratio] 42.8 kg/m2 Tamie Ayala CNM Work Phone: [facility] 08-30-2021 13:20-0400 Body temperature 97.9 [degF] Tamie Ayala CNM Work Phone: [facility] 08-30-2021 13:20-0400 Body weight 106.14 kg Tamie Ayala CNM Work Phone: [facility] 08-30-2021 13:20-0400 Diastolic blood pressure 77 mm[Hg] Tamie Ayala CNM Work Phone: [facility] 08-30-2021 13:20-0400 Heart rate 85 /min Tamie Ayala CNM Work Phone: [facility] 08-30-2021 13:20-0400 Respiratory rate 18 /min Tamie Ayala CNM Work Phone: [facility] 08-30-2021 13:20-0400 SaO2% (BldA) [Mass fraction] 98 % Tamie Ayala CNM Work Phone: [facility] 08-30-2021 13:20-0400 Systolic blood pressure 116 mm[Hg] Tamie Ayala CNM Work Phone: [facility] 08-24-2021 09:29-0400 Body height 157.5 cm Awais Steinberg MD Work Phone: [facility] 08-24-2021 09:29-0400 Body mass index (BMI) [Ratio] 42.25 kg/m2 Awais Steinberg MD Work Phone: [facility] 08-24-2021 09:29-0400 Body weight 104.78 kg Awais Steinberg MD Work Phone: [facility] 08-24-2021 09:29-0400 Diastolic blood pressure 71 mm[Hg] Awais Steinberg MD Work Phone: [facility] 08-24-2021 09:29-0400 Heart rate 87 /min Awais Steinberg MD Work Phone: [facility] 08-24-2021 09:29-0400 SaO2% (BldA) [Mass fraction] 97 % Awais Steinberg MD Work Phone: [facility] 08-24-2021 09:29-0400 Systolic blood pressure 105 mm[Hg] Awais Steinberg MD Work Phone: [facility] 08-17-2021 13:16-0400 Body height 157.5 cm Anna Sterling CNP Work Phone: [facility] 08-17-2021 13:16-0400 Body mass index (BMI) [Ratio] 41.96 kg/m2 Anna Sterling CNP Work Phone: [facility] 08-17-2021 13:16-0400 Body temperature 97.9 [degF] Anna Sterling CNP Work Phone: [facility] 08-17-2021 13:16-0400 Body weight 104.06 kg Anna Sterling CNP Work Phone: [facility] 08-17-2021 13:16-0400 Diastolic blood pressure 68 mm[Hg] Anna Sterling CNP Work Phone: [facility] 08-17-2021 13:16-0400 Heart rate 88 /min Anna Sterling CNP Work Phone: [facility] 08-17-2021 13:16-0400 SaO2% (BldA) [Mass fraction] 96 % Anna Sterling CNP Work Phone: [facility] 08-17-2021 13:16-0400 Systolic blood pressure 108 mm[Hg] Anna Sterling CNP Work Phone: [facility] 08-08-2021 14:17-0400 Body mass index (BMI) [Ratio] 41.7 kg/m2 Danni Busuito DO Work Phone: [facility] 08-08-2021 14:17-0400 Body temperature 98.4 [degF] Danni Busuito DO Work Phone: [facility] 08-08-2021 14:17-0400 Body weight 103.42 kg Danni Busuito DO Work Phone: [facility] 08-08-2021 14:17-0400 Diastolic blood pressure 75 mm[Hg] Danni Busuito DO Work Phone: [facility] 08-08-2021 14:17-0400 Heart rate 85 /min Danni Busuito DO Work Phone: [facility] 08-08-2021 14:17-0400 Respiratory rate 18 /min Danni Busuito DO Work Phone: [facility] 08-08-2021 14:17-0400 SaO2% (BldA) [Mass fraction] 97 % Danni Busuito DO Work Phone: [facility] 08-08-2021 14:17-0400 Systolic blood pressure 114 mm[Hg] Danni Busuito DO Work Phone: [facility] 07-25-2021 14:17-0500 Body mass index (BMI) [Ratio] 41.52 kg/m2 Danni Busuito DO Work Phone: [facility] 07-25-2021 14:17-0500 Body temperature 98.1 [degF] Danni Busuito DO Work Phone: [facility] 07-25-2021 14:17-0500 Body weight 102.97 kg Danni Busuito DO Work Phone: [facility] 07-25-2021 14:17-0500 Diastolic blood pressure 72 mm[Hg] Danni Busuito DO Work Phone: [facility] 07-25-2021 14:17-0500 Heart rate 91 /min Danni Busuito DO Work Phone: [facility] 07-25-2021 14:17-0500 Respiratory rate 16 /min Danni Busuito DO Work Phone: [facility] 07-25-2021 14:17-0500 SaO2% (BldA) [Mass fraction] 97 % Danni Busuito DO Work Phone: [facility] 07-25-2021 14:17-0500 Systolic blood pressure 108 mm[Hg] Danni Busuito DO Work Phone: [facility] 07-05-2021 11:29-0500 Body mass index (BMI) [Ratio] 41.34 kg/m2 Danni Busuito DO Work Phone: [facility] 07-05-2021 11:29-0500 Body temperature 98.4 [degF] Danni Busuito DO Work Phone: [facility] 07-05-2021 11:29-0500 Body weight 102.51 kg Danni Busuito DO Work Phone: [facility] 07-05-2021 11:29-0500 Diastolic blood pressure 73 mm[Hg] Danni Busuito DO Work Phone: [facility] 07-05-2021 11:29-0500 Heart rate 99 /min Danin Busuito DO Work Phone: [facility] 07-05-2021 11:29-0500 Respiratory rate 16 /min Danni Busuito DO Work Phone: [facility] 07-05-2021 11:29-0500 SaO2% (BldA) [Mass fraction] 94 % Danni Busuito DO Work Phone: [facility] 07-05-2021 11:29-0500 Systolic blood pressure 107 mm[Hg] Danni Busuito DO Work Phone: [facility] 05-20-2021 14:59-0500 Body temperature 97.9 [degF] No Physician [facility] 05-20-2021 14:59-0500 Diastolic blood pressure 66 mm[Hg] No Physician [facility] 05-20-2021 14:59-0500 Heart rate 94 /min No Physician [facility] 05-20-2021 14:59-0500 Respiratory rate 17 /min No Physician [facility] 05-20-2021 14:59-0500 SaO2% (BldA) [Mass fraction] 96 % No Physician [facility] 05-20-2021 14:59-0500 Systolic blood pressure 97 mm[Hg] No Physician [facility] 05-20-2021 14:59-0500 Body height 157.5 cm No Physician [facility] 05-20-2021 14:59-0500 Body mass index (BMI) [Ratio] 42.3 kg/m2 No Physician [facility] 05-20-2021 14:59-0500 Body weight 104.9 kg No Physician [facility] 05-09-2021 10:29-0500 Body mass index (BMI) [Ratio] 41.88 kg/m2 Danni Busuito DO Work Phone: [facility] 05-09-2021 10:29-0500 Body temperature 98.49 [degF] Danni Busuito DO Work Phone: [facility] 05-09-2021 10:29-0500 Body weight 103.87 kg Danni Busuito DO Work Phone: [facility] 05-09-2021 10:29-0500 Diastolic blood pressure 70 mm[Hg] Danni Busuito DO Work Phone: [facility] 05-09-2021 10:29-0500 Heart rate 95 /min Danni Busuito DO Work Phone: [facility] 05-09-2021 10:29-0500 Respiratory rate 16 /min Danni Busuito DO Work Phone: [facility] 05-09-2021 10:29-0500 SaO2% (BldA) [Mass fraction] 97 % Danni Busuito DO Work Phone: [facility] 05-09-2021 10:29-0500 Systolic blood pressure 103 mm[Hg] Danni Busuito DO Work Phone: [facility] 04-24-2021 22:11-0500 Diastolic blood pressure 57 mm[Hg] Johanna Suh MD Work Phone: [facility] 04-24-2021 22:11-0500 Heart rate 81 /min Johanna Suh MD Work Phone: [facility] 04-24-2021 22:11-0500 Systolic blood pressure 97 mm[Hg] Johanna Suh MD Work Phone: [facility] 04-24-2021 22:07-0500 SaO2% (BldA) [Mass fraction] 97 % Johanna Suh MD Work Phone: [facility] 04-24-2021 21:51-0500 Body temperature 98.01 [degF] Johanna Suh MD Work Phone: [facility] 04-24-2021 21:51-0500 Respiratory rate 16 /min Johanna Suh MD Work Phone: [facility] 04-11-2021 10:17-0500 Body weight 109.05 kg Danni Busuito DO Work Phone: [facility] 04-11-2021 10:17-0500 Diastolic blood pressure 75 mm[Hg] Danni Busuito DO Work Phone: [facility] 04-11-2021 10:17-0500 Heart rate 82 /min Danni Busuito DO Work Phone: [facility] 04-11-2021 10:17-0500 SaO2% (BldA) [Mass fraction] 97 % Danni Busuito DO Work Phone: [facility] 04-11-2021 10:17-0500 Systolic blood pressure 110 mm[Hg] Danni Tamez DO Work Phone: [facility] 01-07-2020 20:17-0400 Body Temperature 97.3 [degF] [facility] [place] 01-07-2020 20:17-0400 BP Diastolic 86 mm[Hg] [facility] [place] , [place] 01-07-2020 20:17-0400 BP Systolic 120 mm[Hg] [facility] [place] [facility] [place] 01-07-2020 20:17-0400 Pulse (Heart Rate) 74 /min [facility] [place] 01-07-2020 20:17-0400 Pulse Oximetry 98 % [facility] [place] [facility] [place] 01-07-2020 20:17-0400 [facility] 16 [facility] [place] [place] En[facility]ters Encounter Date Encounter Type Care Provider Facility Start: 12-10-2024 End: 12-10-2024 Emergency department patient visit No Primary Care Physician -Emergency Department Work Phone: Start: 05-02-2024 End: 05-02-2024 Emergency department patient visit ISMA CONTRERAS MD [facility] Start: 04-04-2024 End: 04-04-2024 ambulatory Ed ONEAL Facility[place] Start: 03-19-2024 End: 03-19-2024 Emergency department patient visit Rock Calvin Facility:[facility] Start: 03-04-2024 End: 03-04-2024 Emergency department patient visit ISMA RECINOS [facility] Start: 11-26-2023 End: 11-26-2023 Emergency department patient visit GRACIE SHARMA [facility] Start: 06-15-2023 End: 06-15-2023 Emergency department patient visit [facility]-Emergency Department Work Phone: Start: 06-04-2023 End: 06-04-2023 ambulatory JUAN R OSORIO Facility:[facility] Start: 03-19-2023 End: 03-20-2023 Emergency department patient visit JOSSELYN FABIAN NAEL [facility] Start: 01-14-2023 ambulatory Radha Walsh AIR MOVING TECHNICIAN.MULTIFOCAL LENS ASSEMBLER Work Phone: [facility] Comment on above: Results Start: 01-14-2023 E-mail encounter fro m caregiver Radha Walsh AIR MOVING TECHNICIAN.MULTIFOCAL LENS ASSEMBLER Work Phone: [facility] Start: 01-13-2023 Telephone encounter Yanick Kunal AIR MOVING TECHNICIAN.MULTIFOCAL LENS ASSEMBLER Work Phone: [facility] Comment on above: Results Start: 01-09-2023 End: 01-09-2023 ambulatory JUAN R OSORIO Facility:[facility] Start: 01-09-2023 End: 01-09-2023 Office outpatient visit 25 minutes Juan R Szymanski AIR MOVING TECHNICIAN.MULTIFOCAL LENS ASSEMBLER Work Phone: [facility] Comment on above: Burning with urinati on (Primary Dx) Start: 11-27-2022 End: 11-27-2022 Emergency department patient visit Jeff Wilks [facility] Emergency 17 Start: 02-10-2022 [facility] Start: 10-26-2021 End: 10-26-2021 Emergency department patient visit [facility]gency [facility] Start: 10-26-2021 ambulatory TARIQ DIOR [facility] Start: 10-21-2021 Orders Only Danni Deonna Bu suito DO Work Phone: [facility] Start: 10-17-2021 ambulatory PHYSICIAN NO [facility] Ambulatory Start: 10-04-2021 End: 10-04-2021 ambulatory DANNI DEONNA BUSUITO [facility] Ambulatory Start: 10-04-2021 End: 10-04-2021 Office outpatient visit 15 minutes Dannibeulah Guidoo DO Work Phone: [facility] Comment on above: S/P section (Primary Dx); S/P tubal ligation Start: 09-14-2021 Chart abstracting Tariq abraham MD Work Phone: [facility] Start: 09-14-2021 End: 09-16-2021 Evaluation and management of inpatient PHYSICIAN [facility] Start: 09-09-2021 End: 09-09-2021 ambulatory PHYSICIAN NO [facility] Start: 09-06-2021 End: 09-06-2021 ambulatory DANNI DEONNA GUIDOO [facility] Ambulatory Start: 09-06-2021 End: 09-06-2021 Office outpatient visit 15 minutes Danni Deonna Dunlapuito DO Work Phone: [facility] Physician [facility] Comment on above: GA: 38w2d Start: 09-05-2021 Refill Danni Deonna Bu suito DO Work Phone: [facility] Physician [facility] Start: 08-30-2021 End: 08-30-2021 ambulatory PHYSICIAN NO [facility] Ambulatory Start: 08-30-2021 End: 08-30-2021 Office outpatient visit 15 minutes Tamie Ayala CNM Work Phone: [facility] Comment on above: GA: 37w2d Start: 08-24-2021 End: 08-28-2021 ambulatory AWAIS STEINBERG [facility] Ambulatory Start: 08-24-2021 End: 08-24-2021 Office outpatient visit 15 minutes Awais Steinberg MD Work Phone: [facility] Phys[facility] Comment on above: GA: 36w3d Start: 08-19-2021 End: 11-23-2022 Unlisted evaluation and management service Clementina Carrillo Other [facility] Start: 08-18-2021 ambulatory DANNI DEONNA GUIDOO [facility] Start: 08-17-2021 End: 08-17-2021 ambulatory ANNA STERLING [facility] Ambulatory Start: 08-17-2021 End: 08-17-2021 Office outpatient visit 15 minutes Anna Sterling MULTIFOCAL LENS ASSEMBLER Work Phone: [facility] Phys[facility] Comment on above: GA: 35w2d Start: 08-12-2021 Refill Elysia Kody POLICE LIEUTENANT PATROL [facility] Start: 08-09-2021 Orders Only Tariq salazar MD Work Phone: [facility] Comment on above: Scheduled Start: 08-08-2021 End: 08-08-2021 ambulatory DANNI DEONNA LATAO [facility] Ambulatory Start: 08-08-2021 End: 08-08-2021 Office outpatient visit 15 minutes Danni Deonna Busuito DO Work Phone: [facility] Comment on above: GA: 34w0d Start: 07-25-2021 End: 07-29-2021 ambulatory DANNI DEONNA LATAO [facility] Ambulatory Start: 07-25-2021 End: 07-25-2021 Office outpatient visit 15 minutes Danni Deonna Busuito DO Work Phone: [facility] Comment on above: GA: 32w0d Start: 07-22-2021 Orders Only Provider Not I n System [facility] Start: 07-22-2021 End: 07-23-2021 ambulatory PROVIDER NOT IN SYSTEM [facility] Start: 07-22-2021 End: 07-22-[address] [facility] Start: 07-05-2021 End: 07-05-2021 ambulatory DANNI DEONNA LATAO [facility]ulatory Start: 07-05-2021 End: 07-05-2021 Office outpatient visit 25 minutes Danni Deonna Busuito DO Work Phone: [facility] Comment on above: GA: 29w1d Start: 06-22-2021 ambulatory PHYSICIAN NO [facility] Ambulatory Start: 06-21-2021 End: 06-21-2021 ambulatory PHYSICIAN NO [facility] Ambulatory Start: 06-09-2021 Chart abstracting Danni Deonna Busuito DO Work Phone: [facility] Start: 06-06-2021 End: 06-06-2021 ambulatory DANNI DEONNA ABELINOUITO [facility] Ambulatory Start: 05-22-2021 End: 05-22-2021 ambulatory PHYSICIAN NO [facility] Start: 05-20-2021 End: 05-20-2021 Emergency department patient visit NO PCP PHYSICIAN [facility] Start: 05-20-2021 End: 05-20-2021 Emergency department patient visit No Physician [facility] Comment on above: COVID-19 (Primary Dx ) Start: 05-20-2021 End: 05-20-2021 Evaluation and management of inpatient No Physician [facility] Start: 05-09-2021 End: 05-09-2021 ambulatory DANNI GUIDOO [facility] Ambulatory Start: 05-09-2021 End: 05-09-2021 Subsequent care visit Danni Guidoo DO Work Phone: [facility] Comment on above: GA: 21w0d Start: 05-04-2021 ambulatory DANNI GUIDOO [facility] Start: 04-28-2021 Chart abstracting Danni Guidoo DO Work Phone: [facility] Start: 04-26-2021 End: 04-26-2021 Documentation procedure Daniel Carroll CNM Work Phone: [employer]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 [employer] Start: 04-24-2021 End: 04-25-2021 ambulatory JOHANNA SUH [facility] Start: 04-24-2021 End: 04-24-2021 Evaluation and management of inpatient Johanna Suh MD Work Phone: [facility] Start: 04-24-2021 End: 04-24-2021 Subsequent hospital visit by physician Johanna Suh MD Work Phone: [facility] Start: 04-11-2021 End: 04-11-2021 ambulatory DANNI GUIDOO [facility] Start: 04-11-2021 End: 04-11-2021 Office outpatient new 30 minutes Danni Guidoo DO Work Phone: [facility] Comment on above: GA: 17w0d Start: 11-09-2020 End: 11-09-2020 Subsequent hospital visit by physician Ruth [facility] Work Phone: Radiology Comment on above: Cough [R05] Start: 06-24-2020 Patient requested procedure Juan R Szymanski [facility] Work Phone: [facility] Work Phone: Start: 01-07-2020 End: 01-07-2020 Emergency department patient visit [facility] Comment on above: Strain of right shou lder, initial encounter (Primary Dx); Current smoker Procedures Date Procedure Procedure Detail Performing Clinician Start: 03-04-2024 Urinalysis GRACIE MARIO Milly Comment on above: Result Comment: CORRECTED REPORT URINALYSIS Performed By: #### [id number] #### [facility],[address] [place] [address] Start: 11-26-2023 Urinalysis GRACIE MARTIN E Comment on above: Result Comment: URIN ALYSIS Performed By: #### [id number] ####[facility],[address] [place] [address] Start: 06-15-2023 Computed tomography of abdomen and [...] exam ches t 2 views Bonnie Navarro APRN.MULTIFOCAL LENS ASSEMBLER Work Phone: Start: 01-07-2020 Radex shoulder compl ete minimum 2 views Deanne Peña Work Phone: H/O: section History of C-sectio n Tamie Ayala CN Work Phone: H/O: section S/P sectio n Danni Tamez DO Work Phone: Plan of Treatment Date Care Activity Detail Author Start: 06-21-2031 Tetanus vaccination Tetanus: Every 1 0yrs [facility] Start: 06-21-2031 Urine microalbumin profile DTa P,Tdap,Td Vaccine (2 - Td or Tdap) [facility] Start: 12-10-[address] [facility] Start: 05-09-2024 Screening for malign ant neoplasm of cervix [facility] Start: 01-27-2024 Covid-19 Vaccine ( season) Covid-19 Vaccine ( season) [facility] Start: 01-27-2024 Influenza vaccination Influenza Vacc ine (#1) [facility] Start: 06-15-[address] [facility] Start: 01-26-2023 Influenza vaccination INFLUENZA (#1) [facility] Start: 10-12-2022 End: 10-12-2022 [place] - individual psychotherapy v2 [facility] Start: 10-05-2022 End: 10-05-2022 [place] - individual psychotherapy v2 [facility] Start: 08-03-2022 End: 08-03-2022 [place] - individual psychotherapy v2 [facility] Start: 01-26-2022 Influenza vaccination Sequenti al Influenza Vaccine (Season Ended) [facility] Start: 10-27-2021 End: 10-27-2021 ambulatory 10/27/2021 Visit Obstetrics and Gynecology Danni Tamez DO [address] [place] [address] [facility] Phys[facility] Start: 09-29-2021 End: 09-29-2021 Patient encounter procedure 09/29/2021 Office Visit Obstetrics and Gynecology Danni Tamez DO [address] [place] [address] [facility] Start: 09-19-2021 Subsequent hospital visit by physician 09/19/2021 Hospital Encounter Obstetrics [facility] Mother/ Start: 09-14-2021 End: 09-14-2021 Admission to same day surgery center 09/14/2021 Surgery Obstetrics Tariq Dior MD [address] [address] SECTION WITH BILATERAL PARTIAL SALPINGECTOMY [facility] Comment on above: SECTION WIT H BILATERAL PARTIAL SALPINGECTOMY Start: 09-14-2021 End: 09-14-2021 SECTION WITH BILATERAL PARTIAL SALPINGECTOMY [facility] Start: 09-14-2021 Subsequent hospital visit by physician 09/14/2021 Hospital Encounter Obstetrics Tariq Dior MD [address] [place] [address] [facility] Start: 09-06-2021 End: 09-06-2021 Patient encounter procedure 09/06/2021 Routine Obstetrics and Gynecology Danni Tamez DO [address] [place] [address] [facility] Start: 08-30-2021 End: 08-30-2021 Patient encounter procedure 08/30/2021 Routine Obstetrics and Gynecology Tamie Ayala CNM [address] [place] [address] [facility] Start: 08-23-2021 End: 08-23-2021 Patient encounter procedure 08/23/2021 Routine Obstetrics and Gynecology Tamie Ayala CNM [address] [place] [address] [facility] Start: 08-22-2021 End: 08-22-2021 Patient encounter procedure 08/22/2021 Routine Obstetrics and Gynecology [facility] Start: 08-08-2021 End: 08-08-2021 Patient encounter procedure 08/08/2021 Routine Obstetrics and Gynecology Danni Tamez DO [address] [place] [address] [facility] Start: 07-25-2021 End: 07-25-2021 Patient encounter procedure 07/25/2021 Routine Obstetrics and Gynecology Danni Tamez, [address] [place] [address] [facility] Start: 07-22-2021 End: 07-22-2021 Patient encounter procedure 07/22/2021 Routine Obstetrics and Gynecology Danni Tamez, [address] [place] [address] [facility] Start: 06-20-2021 End: 06-20-2021 Patient encounter procedure 06/20/2021 Routine Obstetrics and Gynecology Danni Tamez, [address] [place] [address] [facility] Start: 06-08-2021 End: 06-08-2021 Patient encounter procedure 06/08/2021 Appointment Maternal and Medicine [facility]aternal [facility] Start: 06-06-2021 End: 06-06-2021 Patient encounter procedure 06/06/2021 Routine Obstetrics and Gynecology Danni Tamez, [address] [place] [address] [facility] Start: 05-09-2021 End: 05-09-2021 Patient encounter procedure 05/09/2021 Routine Obstetrics and Gynecology Danni Tamez, [address] [place] [address] [facility] Start: 05-02-2021 End: 04-11-2022 US Obstetric Detail Anatomy Transabdominal Single Fetus US Obstetric Detail Anatomy Transabdominal Single Fetus Imaging Routine Bipolar depression (HCC) Encntr for suprvsn of normal preg, unsp, second trimester Expected: 05/02/2021, Expires: 04/11/2022 [facility] Comment on above: Expected: 05/02/2021 , Expires: 04/11/2022 Start: 04-24-2021 Adolescent depressio n screening assessment Depression Screening [facility] Start: 04-24-2021 Hepatitis C screening Hepatitis C Sc reening [facility] Start: 04-24-2021 HIV screening HIV Screening [facility] Start: 04-24-2021 Lipid panel Cholesterol Sc reening (Lipid Panel) [facility] Start: 04-24-2021 Social Influencers o f Health Screening Social Influencers of Health Screening [facility] Start: 01-26-2021 Influenza vaccination [facility] Start: 12-31-2020 COVID-19 VACCINE (2 - Pfizer series) COVID-19 VACCINE (2 - Pfizer series) [facility] Start: 11-26-2020 COVID-19 Vaccine (2 - Pfizer 2-dose series) COVID-19 Vaccine (2 - Pfizer 2-dose series) [facility] Start: 11-26-2020 COVID-19 Vaccine (2 - Pfizer 3-dose booster series) COVID-19 Vaccine (2 - Pfizer 3-dose booster series) [facility] Start: 11-26-2020 COVID-19 Vaccine (2 - Pfizer 3-dose series) COVID-19 Vaccine (2 - Pfizer 3-dose series) [facility] Start: 11-26-2020 COVID-19 Vaccine (2 - Pfizer series) COVID-19 Vaccine (2 - Pfizer series) [facility] Start: 01-27-2020 Influenza vaccination Flu vaccine (# 1) [facility] [place] Start: 2016 PAP TESTING PAP TESTING [facility] Start: 2016 Screening for malign ant neoplasm of cervix Cervical Cancer Screening: Pap Smear [facility] Start: 2014 DTaP,Tdap,and Td Vac cines (1 - Tdap) DTaP,Tdap,and Td Vaccines (1 - Tdap) [facility] Start: 2014 Hepatitis B Vaccine (1 of 3 - 19+ 3-dose series) Hepatitis B Vaccine (1 of 3 - 19+ 3-dose series) [facility] Start: 2014 Urine microalbumin profile DTAP,TDAP ,TD (1 - Tdap) [facility] Start: 2013 Anxiety Screening Anxiety Screening [facility] Start: 2013 Hepatitis C screening Hepatitis C Sc reening [facility] Start: 2013 HIV SCREENING HIV SCREENING [facility] Start: 2013 HIV screening HIV Screening [facility] Start: 2010 HIV screening HIV Screening [facility] Start: 2007 COVID-19 Vaccine (1) COVID-19 Vaccin e (1) [facility] Start: 2007 Depression screening using PHQ-9 (Patient Health Questionnaire 9) score Depression Screening (PHQ-2/9) [facility] Start: 2006 HPV Vaccines (1 - 2- dose series) HPV Vaccines (1 - 2-dose series) [facility] Start: 2006 Vaccination for elsa n papillomavirus HPV Vaccines (1 - 2-dose series) [facility] Start: 2001 PNEUMOCOCCAL (1 - PCV) PNEUMOCOCCAL (1 - PCV) [facility] Start: 2001 Pneumococcal vaccination Pneum ococcal Vaccine (1 of 2 - PCV) [facility] Start: 2001 Pneumococcal Vaccine : Ped or At-Risk (1 - PCV) Pneumococcal Vaccine: Ped or At-Risk (1 - PCV) [facility] Start: 2001 Pneumococcal Vaccine : Ped or At-Risk (1 of 2 - PPSV23) Pneumococcal Vaccine: Ped or At-Risk (1 of 2 - PPSV23) [facility] Start: 2001 Pneumococcal Vaccine : Pediatrics (0 to 5 Years) and At-Risk Patients (6 to 64 Years) (1 of 2 - PPSV23) Pneumococcal Vaccine: Pediatrics (0 to 5 Years) and At-Risk Patients (6 to 64 Years) (1 of 2 - PPSV23) [facility] Start: 1998 History and physical examination, annual for health maintenance Wellness Visit [facility] Start: 1995 HEPATITIS B (1 of 3 - 3-dose series) HEPATITIS B (1 of 3 - 3-dose series) [facility] Start: 1995 Screening for malign ant neoplasm of cervix Pap Smear [facility] Start: 1995 Tetanus vaccination Tetanus: Every 1 0yrs [facility] Bacteria identified in Unspecified specimen by Aerobe culture Urine Aerobic Culture Microbiology Routine Encntr for suprvsn of normal preg, unsp, second trimester Ordered: 05/09/2021 [facility] Comment on above: Ordered: 05/09/2021 End: 09-06-2022 Bacteria identified in Unspecified specimen by Aerobe culture Urine Aerobic Culture Microbiology Routine Dysuria 1 Occurrences starting 09/06/2021 until 09/06/2022 [facility] Work Phone: Comment on above: 1 Occurrences starti ng 09/06/2021 until 09/06/2022 Bacteria identified in Urine by Culture URINE CULTURE Microbiology Routine Burning with urination 01/09/2023 5:06 PM EDT Work Phone: Blood group antibody screen [Presence] in Serum or Plasma Antibody Screen Blood Bank Routine Encntr for suprvsn of normal preg, unsp, second trimester Ordered: 07/05/2021 [facility] Comment on above: Ordered: 07/05/2021 Blood type and Indir ect antibody screen panel - Blood Type and Screen Blood Bank Routine Encntr for suprvsn of normal preg, unsp, second trimester Ordered: 05/09/2021 [facility] Comment on above: Ordered: 05/09/2021 section SECTIO N Prior Uterine Surgery [facility] Complete blood count with white cell differential, automated CBC Auto Differential Lab Panel Routine Encntr for suprvsn of normal preg, unsp, second trimester Ordered: 05/09/2021 [facility] Comment on above: Ordered: 05/09/2021 Complete blood count with white cell differential, automated CBC Auto Differential Lab Panel Routine Encntr for suprvsn of normal preg, unsp, second trimester Ordered: 07/05/2021 [facility] Comment on above: Ordered: 07/05/2021 Complete blood count with white cell differential, manual CBC and Differential Lab Routine Encntr for suprvsn of normal preg, unsp, second trimester Ordered: 07/05/2021 [facility] Comment on above: Ordered: 07/05/2021 End: 10-09-2022 Glucose [Mass/volume] in Serum or Plasma --1 hour post 50 g glucose PO Gestational Diabetes Screen (50G) Lab Routine Encntr for suprvsn of normal preg, unsp, second trimester 1 Occurrences starting 04/11/2021 until 10/09/2022 [employer] Work Phone: Comment on above: 1 Occurrences starti ng 04/11/2021 until 10/09/2022 End: 07-05-2022 Glucose [Mass/volume] in Serum or Plasma --1 hour post 50 g glucose PO Gestational Diabetes Screen (50G) Lab Routine Encntr for suprvsn of normal preg, unsp, second trimester 1 Occurrences starting 07/05/2021 until 07/05/2022 [employer] Work Phone: Comment on above: 1 Occurrences starti ng 07/05/2021 until 07/05/2022 Hepatitis B surface antigen measurement Hepatitis B Surface Antigen Lab Routine Encntr for suprvsn of normal preg, unsp, second trimester Ordered: 05/09/2021 [employer] Comment on above: Ordered: 05/09/2021 End: 05-09-2022 Hepatitis C antibody measurement Hepatitis C Antibody Lab Routine Encntr for suprvsn of normal preg, unsp, second trimester 1 Occurrences starting 05/09/2021 until 05/09/2022 [facility] Comment on above: 1 Occurrences starti ng 05/09/2021 until 05/09/2022 Human immunodeficien cy virus antibody test HIV 1/2 Screen (4th Generation) Lab Routine Encntr for suprvsn of normal preg, unsp, second trimester Ordered: 05/09/2021 [employer] Work Phone: Comment on above: Ordered: 05/09/2021 Microscopic examinat ion of vaginal Papanicolaou smear Thinprep Pap Smear Pathology and Cytology Routine Encntr for suprvsn of normal preg, unsp, second trimester Ordered: 05/09/2021 [facility] Comment on above: Ordered: 05/09/2021 End: 04-24-2021 Neisseria gonorrhoeae DNA [Presence] in Urine by VERONICA with probe detection [employer] Work Phone: Comment on above: Once for 1 Occurrenc es starting 04/24/2021 until 04/24/2021 Neisseria gonorrhoea e nucleic acid detection Chlamydia/Gonorrhoeae Amplified RNA Microbiology Routine Encntr for suprvsn of normal preg, unsp, second trimester Ordered: 05/09/2021 [facility] Comment on above: Ordered: 05/09/2021 Neisseria gonorrhoea e nucleic acid detection Chlamydia/Gonorrhoeae Amplified RNA Microbiology Routine 36 weeks gestation of Screening examination for venereal disease Ordered: 08/24/2021 [facility] Comment on above: Ordered: 08/24/2021 OBSTETRIC PANEL Obstetric Panel Lab Routine Encntr for suprvsn of normal preg, unsp, second trimester Ordered: 05/09/2021 [facility] Comment on above: Ordered: 05/09/2021 Patient Education [facility] Work Phone: Patient referral [facility] Work Phone: Rapid plasma reagin test RPR Lab Routine Encntr for suprvsn of normal preg, unsp, second trimester Ordered: 05/09/2021 [facility] Comment on above: Ordered: 05/09/2021 Rapid plasma reagin test RPR Lab Routine Encntr for suprvsn of normal preg, unsp, second trimester Ordered: 07/05/2021 [facility] Comment on above: Ordered: 07/05/2021 Rubella IgG measurement Rubella Antibody, IgG Lab Routine Encntr for suprvsn of normal preg, unsp, second trimester Ordered: 05/09/2021 [facility] Comment on above: Ordered: 05/09/2021 Streptococcus agalac tiae DNA [Presence] in Unspecified specimen by VERONICA with probe detection Group B Strep PCR, Vaginal/Rectal Microbiology Routine 36 weeks gestation of Encounter for screening for Streptococcus B Ordered: 08/24/2021 [facility] Work Phone: Comment on above: Ordered: 08/24/2021 Trichomonas vaginali s rRNA [Presence] in Unspecified specimen by VERONICA with probe detection Trichomonas vaginalis molecular study Lab Routine 04/24/2021 10:01 PM [facility] [employer] Urinalysis Urinalysis Lab R outine Encntr for suprvsn of normal preg, unsp, second trimester Ordered: 05/09/2021 [facility] Comment on above: Ordered: 05/09/2021 US POC Obstetric Ultrasound US POC Obstetric Ultrasound Imaging Routine 07/22/2021 11:05 AM [facility] End: 05-09-2022 Varicella-zoster virus antibody IgG measurement Varicella zoster Antibody, IgG Lab Routine Encntr for suprvsn of normal preg, unsp, second trimester 1 Occurrences starting 05/09/2021 until 05/09/2022 [facility] Comment on above: 1 Occurrences starti ng 05/09/2021 until 05/09/2022 Immunizations Immunization Date Immunization Notes Care Provider Az mcneal 06-21-2021 tetanus toxoid, redu austin diphtheria toxoid, and acellular pertussis vaccine, adsorbed Danni Busuito DO Work Phone: [facility] 11-05-2020 COVID-19 original vaccine, age 12+ yr, monovalent ([employer] - PURPLE TOP) Juan R Szymanski 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 2018 Medicaid [id number] 2018 Medicaid [id number] 2018 Unknown [id number] 2016 Private Health Insurance [id number] 1995 Unknown [id number] 2.16.840.1.150477.3.579.2. 1143 1995 Unknown [id number] 2.16.840.1.405989.3.579.2. 902 1995 Unknown [id number] 2.16.840.1.522489.3.579.2. 902 1995 Unknown [id number] 2.16.840.1.631315.3.579.2. 2 1995 Unknown [id number] 2.16.840.1.684407.3.579.2. 1995 Unknown [id number] 2.16.840.1.834474.3.579.2. 2 1995 Unknown [id number] 2.16.840.1.490052.3.579.2. 1995 Unknown [id number] 2.16.840.1.519015.3.579.2. 1995 Unknown [id number] 2.16.840.1.001440.3.579.2. 1995 Unknown [id number] 2.16.840.1.770209.3.579.2. 1995 Unknown [id number] 2.16.840.1.739581.3.579.2. 1995 Unknown [id number] 2.16.840.1.525561.3.579.2. 1995 Unknown [id number] 2.16.840.1.576617.3.579.2. 1995 Unknown [id number] 2.16.840.1.643968.3.579.2. 1995 Unknown [id number] 2.16.840.1.299700.3.579.2. 1995 Unknown [id number] 2.16.840.1.855368.3.579.2. 1995 Unknown [id number] 2.16.840.1.673285.3.579.2. 1995 Unknown [id number] 2.16.840.1.897147.3.579.2. 1995 Unknown [id number] 2.16.840.1.502206.3.579.2. 1995 Unknown [id number] 2.16.840.1.079078.3.579.2. 903 1995 Unknown [id number] 2.16.840.1.799373.3.579.2. 903 1995 Unknown [id number] 2.16.840.1.323406.3.579.2. 903 1995 Unknown [id number] 2.16.840.1.358682.3.579.2. 903 1995 Unknown [id number] 2.16.840.1.740944.3.579.2. 903 1995 Unknown [id number] 2.16.840.1.192354.3.579.2. 903 1995 Unknown [id number] 2.16.840.1.788112.3.579.2. 903 1995 Unknown [id number] 2.16.840.1.930312.3.579.2. 1069 1995 Unknown [id number] 2.16.840.1.405742.3.579.2. 900 1995 Unknown [id number] 2.16.840.1.038167.3.579.2. 651 1995 Unknown [id number] 2.16.840.1.038188.3.579.2. 651 1995 Unknown [id number] 2.16.840.1.877343.3.579.2. 627 Unknown [employer] Unknown [id number] Unknown [id number] 2.16.840.1.191554.3.579.2. 462 Unknown [id number] 2.16840.1.262453.3.579.2. 462 Unknown [id number] 2.16840.1.007917.3.579.2. 462 Social History Date Type Detail Facility Start: 01-07-2020 End: 12-10-2024 Tobacco smoking status [facility] Start: 01-07-2020 End: 05-04-2020 Cigarettes smoked current (pack per day) - Reported [facility] Start: 01-07-2020 End: 06-24-2020 Tobacco use and exposure Never used [facility] Mae Start: 01-07-2020 Alcohol intake [facility] Start: 01-07-2020 Alcohol Comment [facility] Start: 1995 Sex Assigned At Not on file [facility] Start: 10-06-2020 End: 10-01-2021 Exposure to SARS-CoV-2 (event) Not sure [facility] Start: 11-09-2020 End: 04-11-2021 Alcohol intake Ex-drinker (finding) [facility] Start: 04-11-2021 History HIOH Alcohol Comment Have not heavily for 9 yrs, occassionally now. [facility] Start: 12-26-2020 [facility] Start: 04-24-2021 Tobacco Comment pt is in process of quiting [employer] Start: 10-26-2021 End: 06-15-2023 Tobacco smoking status NHIS Unknown if ever smoked [facility] Start: 1995 End: 1995 Sex Assigned At Female [facility] Start: 05-04-2020 End: 10-08-2020 Social connection and isolation panel [facility] Do you belong to any clubs or organizations such as orthodoxy groups, unions, fraternal or athletic groups, or school groups? No [facility] Are you now , , , , never or living with a partner? Never [facility] How often to you hav e a drink containing alcohol? 2-4 times a month [facility] How many standard dr inks containing alcohol do you have on a typical day? 1 or 2 [facility] How often do you hav e 6 or more drinks on 1 occasion? Less than monthly [facility] How hard is it for y ou to pay for the very basics like food, housing, medical care, and heating Somewhat hard [facility] Adult Depression Screening Assessment 5 [facility] Do you feel stress - tense, restless, nervous, or anxious, or unable to sleep at night because your mind is troubled all the time - these days [OSQ] Very much [facility] (I/We) worried whecaitie er (my/our) food would run out before (I/we) got money to buy more. Sometimes true [facility] Start: 10-08-2020 Education 14 [facility] Start: 10-08-2020 Gender identity Identifies as female gender (finding) [facility] Start: 10-08-2020 Sexual orientation Bisexual (finding) [facility] Tobacco smoking status No Smokin g Status Entered [facility] Goals Date Patient Goal Desired Activity /State 04-27-2022 Goal Observation Functional Status Date Assessment Result Facility 05-02-2024 Functional Status Standard Safet y ID band on, Allergy Band on, Call device within reach, Bed in low position, Wheels locked, Upper/Half-Length side-rails up, Bedside Cart Locked, Safety level maintained [facility] Mental Status Date Assessment Result Facility 05-02-2024 Mental Status Orientation Oriented x 4 [facility] Clinical Notes 06-30-2020 to 05-02-2024 Telephone Encounter [...] temperature. Use toothpaste made for sensitive teeth. Perry gently up and down instead of sideways. Brushing sideways can wear away root surfaces if they are exposed. If your tooth is chipped or cracked, or if there is a large open cavity, put oil of cloves directly on the tooth to relieve pain. You can buy oil of cloves at [facility]. Some pharmacies carry an oeua-ezr-jitgzuh toothache kit. This contains a paste that you can put on the exposed tooth to make it less sensitive. Put a cold pack on your jaw over the sore area to help reduce pain. You may use ncrh-uba-nfywajv medicine to ease pain, unless your doctor [...] healthcare provider Pus drains from the tooth [phone] [employer]. [address] [place] [address], [place] [address]. All rights reserved. This information is not [...] cloves at drugstores. Some pharmacies carry an bhge-qnj-cakjpwh toothache kit. This contains a paste that you can put on the exposed tooth to make it less sensitive. Put a cold pack on your jaw over the sore area to help reduce pain. You may use goks-snj-gmhgilw medicine to ease pain, unless another medicine [...] Pus drains from the tooth or gum [phone] [employer] [address] [place] [address]. All rights reserved. This information is not intended as a substitute for professional medical care. Always follow your healthcare professional's instructions. Follow Up Care 05/02/2024 19:54:32 With:Call [facility] Pt. Refferral [phone] Address:Unknown When:2-4 days [facility] Miguelina Rocha 05-02-2024 Emergency department Discharge summary Discharge Instructions Thank you for allowing [facility] to assist you with your healthcare needs. The following is important discharge information regarding your hospital visit. What to Do Next Instructions from Your Care Team Call the dentist next week. To schedule an appointment. No qualifying data available. Post Acute Orders No qualifying data available. You Need to Schedule the Following Appointments Follow Up with Call AMB New Pt. Refferral [phone] When:Within 2-4 days Allergies penicillin Medications Please [...] temperature. Use toothpaste made for sensitive teeth. Perry gently up and down instead of sideways. Brushing sideways can wear away root surfaces if they are exposed. If your tooth is chipped or cracked, or if there is a large open cavity, put oil of cloves directly on the tooth to relieve pain. You can buy oil of cloves at [facility]. Some pharmacies carry an wuor-rpl-ofnnqrn toothache kit. This contains a paste that you can put on the exposed tooth to make it less sensitive. Put a cold pack on your jaw over the sore area to help reduce pain. You may use fjpa-tgg-rbgffkc medicine to ease pain, unless your doctor [...] healthcare provider Pus drains from the tooth 8942-8808 [employer] [address] [place] [address]. All rights reserved. This information is not [...] cloves at drugstores. Some pharmacies carry an jrfg-yhw-omrpsjn toothache kit. This contains a paste that you can put on the exposed tooth to make it less sensitive. Put a cold pack on your jaw over the sore area to help reduce pain. You may use pyyv-xqg-oqofqvx medicine to ease pain, unless another medicine [...] Pus drains from the tooth or gum [phone] [employer] [address] [place] [address]. All rights reserved. This information is not intended as a substitute for professional medical care. Always follow your healthcare professional's instructions. Additional Information VACCINATE! IT SAVES LIVES! Members of the community who have not yet received the COVID-19 vaccine and would like to receive it can visit one of [facility] vaccine clinics. There are many vaccine clinic locations within the [facility]. For locations and available times, please visit www.gettheshot.coronavirus.[place] .gov/. It is important to note that some COVID mobile vaccine clinics are held outdoors and may be canceled in rainy or stormy conditions. To learn more about pediatric vaccinations (ages 5-11), we invite you to visit the [facility] webpage. https://www.[facility].org/ pages/8952-Qrwpv-Ijqhycnfgzt-Fr tkjwckwk-Bilft-Yowadqcew.html To learn more about the COVID-19 vaccine, we invite you to visit the CDC website for a list of frequently asked questions. https://www.cdc.gov/coronavirus /2019-ncov/vaccines/faq.html [facility] Patient Portal Access Instructions: Stay connected with your healthcare team and access your personal medical information anytime with the [facility] Patient Portal. If you would like a full copy of your medical records please contact the [facility] Medical Records Department Sunday through Sunday between 8a.m. and 4:30p.m. Please follow the directions below to access the portal: 1.Access the email account you provided upon registration to the [facility].2.Look for an invitation email from [facility].3.Open the email and access the invitation link: Accept Invitation to [facility].Fill in the required haq to create your account. Sign into [email or web address] with your username and password that you [...] you will allow to register on the [facility] Patient Portal for access to your information. You can also access the [facility] Patient Portal on the [employer]. Simply click on Health Records under Health Data and then click on the [employer] logo. HOW TO SAFELY DISPOSE OF PRESCRIPTION [...] Call your local pharmacy or go to http://6sicuro.it.Ruci.cn/0I5Tz2l to find one close to you.3.Make use of household items: Use cat litter or old coffee grounds to dispose medications if other options are not available. Mix your drugs with these household products, seal them in an airtight container and throw it into the garbage. Call [facility]: [phone] to be sure your drugs can be [...] aware that I should contact my doctor. Patient/Field Control Inspector Signature: Date/Time: Relationship to Patient: Witness Name/Signature: Date/Time: [facility] 03-04-2024 Note Discharge Instructio ns Discharge Summary [address] [address] [id number] 03/04/2024 Patient: MITZI LAWLER Sex: Female : 1995 Age: 28y Thank you for visiting [facility]. You have been evaluated today by Isam Recinos D.O. for the following condition(s): Principal Diagnosis Acute nontraumatic generalized abdominal pain. Acute generalized abdominal pain of unknown cause. INSTRUCTIONS Follow-up with: Tresaure Cortes DNP, APRN, AMILCAR-Silas, [facility] [place], Adult and Pediatric, Family [facility] [place], , [address] [place] [address]. Follow up in two. Call for an appointment. (Return to the emergency department for increasing pain problems or concerns. Not sure what is causing her discomfort but it increases return). You have been given the following additional information: Unknown Causes of Abdominal Pain (Female) Patient Signature Facility Field Control Inspector Date/Time 1 of 5 Discharge Instructions General Instructions with [facility] [address] [place] [address] [id number] 03/04/2024 Patient: MITZI LAWLER Sex: Female : 1995 Age: 28y Thank you for visiting [facility]. You have been evaluated today by Isma Recinos D.O. for the following condition(s): Principal Diagnosis Acute nontraumatic generalized abdominal pain. Acute generalized abdominal pain of unknown cause. INSTRUCTIONS Follow-up with: Treasure Cortes DNP, APRN, AMILCAR-C, [facility] [place], Adult [facility] Pediatric, [facility] [place], , [address] [place] [address]. Follow up in two. Call for an [...] Rapid heart rate (more content not included)... [facility] 07-07-2023 Evaluation note Sat Jul 07 00 :26:20 EST 2023: No Assessment Information [facility] 06-04-2023 Note HNO ID: [id number] Author: BONNIE NAVARRO APRN.MULTIFOCAL LENS ASSEMBLER Service: ? Author Type: Nurse Practitioner Type: [...] 06/24/2020t had 2 previous C sections in [place]. She desires a . I have asked her to obtain her operative report from her last delivery in [place]. I have also asked the patient to activate her turntable.fmhart and I will send her EMMIS on [...] place, and time. (more content not included)... [facility] 03-26-2023 Evaluation note Mon Mar 26 07 :59:11 EDT 2022: No Assessment Information [facility] 03-25-2023 Evaluation note Sun Mar 25 23 :53:54 EDT 2022: No Assessment Information [facility] 03-25-2023 Evaluation note Sun Mar 25 17 :10:20 EDT 2022: No Assessment Information [facility] 03-25-2023 Evaluation note Sun Mar 25 15 :25:53 EDT 2022: No Assessment Information [facility] 03-23-2023 Evaluation note Fri Mar 23 16 :35:12 EDT 2022: No Assessment Information [facility] 03-21-2023 Evaluation note Wed Mar 21 03 :21:54 EDT 2022: No Assessment Information [facility] 03-20-2023 Evaluation note Tufeb 24 20 :03:50 EDT 2022: No Assessment Information [facility] 03-20-2023 Evaluation note Tue Oct 24 06 :22:46 EDT 2023: No Assessment Information [facility] 03-20-2023 Evaluation note e Oct 24 04 :36:26 EDT 2022: No Assessment Information [facility] 03-20-2023 Evaluation note Sun Oct 00 :39:04 EDT 2022: No Assessment Information [facility] 02-25-2023 Evaluation note SunFeb 25 22 :08:10 EDT 2022: No Assessment Information [facility] 02-23-2023 Evaluation note Fri Sep 00 :47:54 EDT 2022: No Assessment Information [facility] 02-18-2023 Evaluation note Sun Sep 23 :34:25 EDT 2022: No Assessment Information [facility] 02-17-2023 Evaluation note Sat Sep 16 :13:07 EDT 2022: No Assessment Information [facility] 02-16-2023 Evaluation note Fri Sep 03 :03:03 EDT 2022: No Assessment Information [facility] 02-14-2023 Evaluation note Wed Sep 20 20 :35:13 EDT 2022: No Assessment Information [facility] 02-11-2023 Evaluation note Sun Feb 11 15 :41:51 EDT 2022: No Assessment [...] Stefany Aguirre LPN documented in this encounter [facility] 01-15-2023 Miscellaneous Notes Third and final call [...] primary care provider documented in this encounter [facility] 01-13-2023 Evaluation note Sat Jan 13 15 [...] Assessment Information [facility] 01-09-2023 Note HNO ID: [id number] Author: Juan R Szymanski APRN.MULTIFOCAL LENS ASSEMBLER Service: ? Author Type: Nurse Practitioner Type: Progress Notes Filed: 01/09/2023 4:00 PM Note Text: Subjective HPI A nontoxic appearing female presents to urgent care with chief complaint of possible UTI. Duration of symptoms 1 week. Associated symptoms dysuria, frequency, and urgency. Patient has history of UTIs in past with similar signs and symptoms. Patient denies the use of any ovng-blx-udxkxoc medications or home remedies for symptom management. [...] 1Pt had 2 previous C sections in [place]. She desires a . I have asked her to obtain her operative report from her last delivery in [place]. I have also asked the patient to [...] Negative for myalgi (more content not included)... [facility] 01-09-2023 History of Presen t illness Narrative Subjective HPI A nontoxic appearing female presents to urgent care with chief complaint of possible UTI. Duration of symptoms 1 week. Associated symptoms dysuria, frequency, and urgency. Patient has history of UTIs in past with similar signs and symptoms. Patient denies the use of any sqca-hwq-btlezzg medications or home remedies for symptom management. [...] 06/24/2020t had 2 previous C sections in [place]. She desires a . I have asked her to obtain her operative report from her last delivery in [place]. I have also asked the patient to [...] of care. This note was generated using interspireSubmit software. It may contain errors in wording, punctuation, or spelling. Juan R Szymanski APRN.MULTIFOCAL LENS ASSEMBLER documented in this encounter [facility] 01-08-2023 Evaluation note SunJan 08 03 :54:13 [...] No Assessment Information [facility] 10-06-2022 Evaluation note SunOctober 06 16 :41:12 EDT 2022: No Assessment [...] baby is at least 5-6 months old [facility] Work Phone: 10-04-2021 History of Presen t [...] visit I spent 20 minutes with both qeso-do-pldo and vlw-opcw-fj-face time reviewing pt's records and discussing pt's clinical presentation and further management. Danni Tamez DO Obstetrics and Gynecology documented in this encounter [facility] 09-06-2021 Note Addended by: DANNI TAMEZ on: 09/06/2021 03:05 PM Modules accepted: Orders [facility] 09-06-2021 Note Addended by: DANNI TAMEZ on: 09/06/2021 03:05 PM Modules accepted: Orders [facility] 09-06-2021 Miscellaneous Notes Addended by: DANNI TAMEZ on: 09/06/2021 03:05 PM Modules accepted: Orders documented in this encounter [facility] 09-06-2021 History of Presen t illness Narrative [...] 38w2d Labs: -OB panel: records requested from [place] 04/11, never received; B-, antibody negative, hgb [...] based on 1st trimester US done in [place] Route of delivery: repeat CS with tubal scheduled 09/14 risk factors: // EJ at 17 wks - Moved back to [place] from [place] - Was visiting one of her children in [place] but plans to deliver here - Records requested from [place], never received - labs and cultures obtained [...] Obstetrics and Gynecology documented in this encounter [facility] 09-06-2021 History of Presen t illness Narrative [...] 38w2d Labs: -OB panel: records requested from [place] 04/11, never received; B-, antibody negative, hgb [...] based on 1st trimester US done in [place] Route of delivery: repeat CS with tubal scheduled 09/14 risk factors: // EJ at 17 wks - Moved back to [place] from [place] - Was visiting one of her children in [place] but plans to deliver here - Records requested from [place], never received - labs and cultures obtained [...] Obstetrics and Gynecology documented in this encounter [facility] 08-30-2021 History of Presen t illness Narrative [...] weeks gestation of S/s of PTL/SAB given. [facility] rev'd. Patient to follow up in 1 week. Pt verbalized understanding. documented in this encounter [facility] 08-24-2021 History of Presen t illness Narrative [...] at 17 wks - Moved back to [place] from [place] - Was visiting one of her children in [place] but plans to deliver here - Records requested from [place], never received - labs and cultures obtained 05/09 / Hx CS x 2 - First for intolerance - Second scheduled repeat - Discussed vs RCS, pt initially wanted TOLAC but changed her mind 2/28 to repeat CS due to velamentous cord [...] Awais Steinberg M.D. documented in this encounter [facility] 08-17-2021 Evaluation + Plan note Associated Problem(s): Oral thrush Nystatin swish and swallow sent [facility] 08-17-2021 Miscellaneous Notes Associated Problem(s): Oral thrush Nystatin swish and swallow sent documented in this encounter [facility] 08-17-2021 History of Presen t illness Narrative Chief Complaint Patient presents with OB problem visit Pt c/o possible thrush. C/o tongue is white and painful to eat and talk. Pt is unable to give urine sample at this time. Ms. iMtzi Lawler is at 35w2d C/o thrush; states [...] parts viscous lidocaine 2%, diphenhydramine 12.5mg/5mL, maalox 009xc-551af-15pb/5mL, nystatin 100,000unit/mL Anna Sterling CNP documented in this encounter [facility] 08-12-2021 Telephone encounter Note Pt advised. [facility] 08-12-2021 Miscellaneous Notes Pt advised. Pt LVM via nurse line requesting refill. documented in this encounter [facility] 08-12-2021 Telephone encounter Note Pt LVM via nurse line requesting refill. [facility] 08-09-2021 History of Presen t illness Narrative Repeat C/section and Tubal scheduled for 09/14/21. documented in this encounter [facility] 08-08-2021 Instructions Danni Tamez DO - 08/08/2021 2:35 PM EDT She can call [facility]'s number at [phone] and [facility] at [phone]. documented in this encounter [facility] 08-08-2021 History of Presen t illness Narrative [...] 34w0d Labs: -OB panel: records requested from [place] 04/11, never received; B-, antibody negative, hgb [...] at 17 wks - Moved back to [place] from [place] - Was visiting one of her children in [place] but plans to deliver here - Records requested from [place], never received - labs and cultures obtained [...] 36 weeks. Staff message sent to surgical assist to schedule repeat CS around 39wks, anticipate on 09/14 at 39w2d per pt request Follow up in 2 weeks for return OB and NST Danni Tamez DO Obstetrics and Gynecology documented in this encounter [facility] 07-25-2021 History of Presen t illness Narrative [...] 32w0d Labs: -OB panel: records requested from [place] 04/11, never received; B-, antibody negative, hgb [...] at 17 wks - Moved back to [place] from [place] - Was visiting one of her children in [place] but plans to deliver here - Records requested from [place], never received - labs and cultures obtained [...] Obstetrics and Gynecology documented in this encounter [facility] 07-05-2021 History of Presen t illness Narrative [...] 29w1d Labs: -OB panel: records requested from [place] 04/11, never received; B-, antibody negative, hgb [...] at 17 wks - Moved back to [place] from [place] - Was visiting one of her children in [place] but plans to deliver here - Records requested from [place], never received - labs and cultures obtained [...] Obstetrics and Gynecology documented in this encounter [facility] 05-20-2021 History of Presen t illness Narrative Pt states son recently recovered from Bronchitis and she may have contracted it HPI Chief Complaint Patient presents with Cough HPI Patient presents to the ER with her son for evaluation. Mother started having a cough 3 days ago with stuffy nose and sneezing. She is approximately 23 weeks and follows up at [facility]. 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 IMPRESSION 1)acute covid 19 Procedures KIMMY Sharp 05/20/21 8881 documented in this encounter [facility] 05-20-2021 Hospital Discharg e instructions Janet Weeks [...] through Care Everywhere.Coronavirus Disease (COVID-19): General Info (Guamanian)documented in this encounter [facility] 05-09-2021 History of Presen t illness Narrative [...] by pt reported first trimester US in [place] equal to 19 wk US performed 04/27 (pt not certain of LMP) Delivery Mode: desires TOLAC Labs: -OB panel: records requested from [place] 04/11, never received; labs and cultures obtained [...] at 17 wks - Moved back to [place] from [place] - Was visiting one of her children in [place] but plans to deliver here - Records requested from [place], never received - labs and cultures obtained [...] Obstetrics and Gynecology documented in this encounter [facility] 04-26-2021 History of Presen t illness Narrative Labs reviewed and GC/cT/trich negative documented in this encounter [facility] 04-24-2021 History of Presen t illness Narrative Went over discharge paperwork with pt. Went over education. Answered all questions and pt got dressed and left unit Had first dose beginning of 2020, had bad reaction, doctor advised to not get second dose. Pt got biotech documented in this encounter [facility] 04-24-2021 History and physical note OB Triage Note/H&P SUBJECTIVE: Mitzi Lawler is a 25 y.o. at 18w6d PNC: adequate care with [facility] Complications: No complications identified. Chief Compliant: Chief [...] EXAM: FHTs 143 per doppler, TOCO: none AUTOMATIC GLOVE TURNER AND FORMER: Vagina: normal appearing vagina with normal color [...] agrees D/c home documented in this encounter [facility] 04-24-2021 Hospital Discharg e Mitzi Rose, HALI - [...] Where can you learn more? Go to [email or web address] edvin Enter N871 in the search box to learn more about Blood in the Urine: Care Instructions. Current as of: July 07, 2020 Content Version: 13.0 [employer]. Care instructions adapted under license by your healthcare professional. If you have questions about a medical condition or this instruction, always ask your healthcare professional. [employer] disclaims any warranty or liability for your use of this information. documented in this encounter [facility] 04-11-2021 History of Presen t illness Narrative INITIAL VISIT Patient Name: Mitzi Lawler : 1995 MR #: [id number] Mitzi Lawler is a 25 y.o. 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 Was in a psych institution ([facility]) PTSD (post-traumatic stress disorder) Rh incompatibility Substance abuse ([facility]) Marijuana, has not used for 4 years [...] reviewed. Benefits of and 10 steps reviewed. [facility] Guide given to patient. PACU Vitals 04/11/21 1017 BP: 110/75 Pulse: 82 SpO2: 97% FHTs: 140s via doppler Mitzi Lawler is a 25 y.o. at 17w0d gestation being seen today for her first obstetrical visit. PATIENCE : 09/19/2021, by Patient Reported Delivery Mode: RCS vs TOLAC Labs: -OB panel: records requested from [place] 04/11 -Genetic studies: declines -Anatomy US ordered 04/01, level 2 due to history of unknown psychiatric meds at beginning of -Flu vaccine: declines -COVID vaccine: partially vaccinated, Pfizer risk factors: // EJ at 17 wks - Moved back to [place] from [place] - Was visiting one of her children in [place] but plans to deliver here - Records requested from [place] // Hx CS x 2 - First [...] up in 4 weeks. Records requested from [place]. Will obtain any additional labs pending records received. [facility] genetics. Danni Tamez DO Obstetrics and Gynecology See Provider Note. documented in this encounter [facility] 11-09-2020 History of Presen t illness Narrative [...] 2020 12:00 PM documented in this encounter [facility] 06-30-2020 History of Past i llness Narrative [...] 06/24/2020t had 2 previous C sections in [place]. She desires a . I have asked her to obtain her operative report from her last delivery in [place]. I have also asked the patient to activate her MyChart and I will send her EMMIS on and . I have advised her to watch these EMMIs prior to her next appointment. [facility] Obesity during 03/2021 Overview: 06/24/2020atient is obese. We will plan on GCT at new OB. TKRN documented as of this encounter (statuses as of 01/10/2023) [facility]02-03-2021 History of Past illness Narrative* Problem Noted [...] 06/24/2020t had 2 previous C sections in [place]. She desires a . I have asked her to obtain her operative report from her last delivery in [place]. I have also asked the patient to activate her MyChart and I will send her EMMIS on and . I have advised her to watch these EMMIs prior to her next appointment. TKRN Obesity during 03/2021 Overview: 06/24/2020atient is obese. We will plan on GCT at new OB. TKRN documented as of this encounter (statuses as of 01/15/2023) [facility]2021 History of Past illness Narrative* Problem Noted [...] 06/24/2020t had 2 previous C sections in [place]. She desires a . I have asked her to obtain her operative report from her last delivery in [place]. I have also asked the patient to activate her MyChart and I will send her EMMIS on and . I have advised her to watch these EMMIs prior to her next appointment. TKRN Obesity during 03/2021 Overview: 06/24/2020atient is obese. We will plan on GCT at new OB. TKRN documented as of this encounter (statuses as of 01/17/2023) [facility] No data available for this section [facility] Evaluation note* Diagnosis Encntr for suprvsn of normal preg, unsp, second trimester- Primary with 17 completed weeks gestation Bipolar depression (HCC) Bipolar I disorder, most recent episode (or current) depressed, unspecified Tobacco smoking affecting , antepartum Rh negative, antepartum History of Other postprocedural status Obesity affecting , antepartum [facility] Diagnosis Hematuria, gross Gross hematuria documented in this encounter [facility] note* Diagnosis Encntr for suprvsn of normal preg, unsp, second trimester- Primary with 21 completed weeks gestation [facility] Diagnosis COVID-19- Primary documented in this encounter [facility] note* Diagnosis Encntr for suprvsn of normal preg, unsp, second trimester- Primary with 29 completed weeks gestation [facility] Diagnosis Encounter for supervision of other normal in third trimester- Primary with 32 completed weeks gestation Abnormal glucose tolerance test (GTT) during , antepartum Encounter for ultrasound to assess interval growth of fetus 32 weeks gestation of [facility] Diagnosis Encounter for supervision of high risk in third trimester, antepartum- Primary with 34 completed weeks gestation Encounter for sterilization Sterilization [facility] Diagnosis Oral thrush- Primary Candidiasis of mouth [facility] Diagnosis 36 weeks gestation of - Primary Encounter for ultrasound to assess interval growth of fetus Encounter for screening for Streptococcus B Screening examination for venereal disease Tobacco smoking affecting in third trimester [facility] Diagnosis 37 weeks gestation of - Primary Velamentous insertion of umbilical cord, antepartum Tobacco smoking affecting , antepartum Rh negative, antepartum History of Other postprocedural status Obesity affecting , antepartum [facility] Diagnosis Encounter for supervision of high risk in third trimester, antepartum- Primary with 38 completed weeks gestation [facility] Diagnosis Encounter for supervision of high risk in third trimester, antepartum- Primary with 38 completed weeks gestation Dysuria [facility]* Diagnosis S/P section- Primary Other postprocedural status S/P tubal ligation Tubal ligation status documented in this encounter [facility] noteNo assessment information availableWWhite Hospital Work Phone: Evaluation note* Diagnosis Burning with urination- Primary Dysuria [facility] noteNYAP-NVEvaluation noteNYAP-NVEvaluation note [facility] Discharge instructionsAdditional Instructions Take antibiotic as prescribed. Follow-up with dentist for definitive treatment plans.[facility] Work Phone: Reason for referral (narrative)No reason for referral information availableWWhite Hospital Work Phone: Discharge Instructions * Instructions* Deanne Peña, AIR MOVING TECHNICIAN - MULTIFOCAL LENS ASSEMBLER - 01/07/2020 Return to Work Form [facility] (ED) [] [facility] [phone] [x] [place] [phone] [] Carlos Enrique [phone] [] Steven Elias [phone] [] [place] [phone] *Show this Return to Work form to your work hall supervisor immediately. It is your employer's responsibility [...] Work injuries require treatment by a [facility] certified provider. If follow-up care is needed please call one of the [facility] locations below. Marlene Marcial: [phone], [address], [place] [address] [place]: [phone] [address] [place] [address] [place]: [phone] [place] [address] [place]: [phone] [address] [address] [place]: [phone], [place] [address] * Attachments The following attachments cannot be sent through Care Everywhere. * Shoulder Pain (Guamanian) * Smoking Cessation: Health Benefits: General Info (Guamanian) documented in this encounter Assessments Diagnosis Strain [...] for this section No Family History Records FoundNo Family History Records Found Advance Directives No Advanced Directives Records FoundDocuments on File Type Date Recorded Patient Field Control Inspector Expl anation Power of Steam Drier Operator Latest Code Status on File Code [...] Documents on File Type Date Recorded Patient Field Control Inspector Expl anation Advance Directives and Living Will Documents on File Type Date Recorded Patient Field Control Inspector Expl anation Advance Directives and Living Will Documents on File Type Date Recorded Patient Field Control Inspector Expl anation Advance Directives and Livin g Will 06/08/2021 10:56 AM Latest Code Status on File Code Status Date Activated Date Inactivated Comments Full Code 05/22/2021 5:12 PM 05/22/2021 8:07 PM Documents on File Type Date Recorded Patient Field Control Inspector Expl anation Advance Directives and Livin g Will 07/22/2021 10:56 AM Latest Code Status on File Code Status Date Activated Date Inactivated Comments Full Code 07/22/2021 9:44 AM 07/22/2021 1:18 PM Full Code 05/22/2021 5:12 PM 05/22/2021 8:07 PM Documents on File Type Date Recorded Patient Field Control Inspector Expl anation Advance Directives and Livin g [...] October 26, 2021 8 :15pm Power of Steam Drier Operator No October 26, 2021 8:15pm Advance Directive Response Recorded Date/ Time Living Will No June 15 1:49am Power of Steam Drier Operator No June 15, 2023 1:49am Advance Directive Response Recorded Date/ Time Do you have a Healthcare Power of Steam Drier Operator? No December 10, 2024 1:27pm Reason for Referral Specialty Diagnoses / Procedures Referred By Neal t Referred To Contact Obstetrics and Gynecology Diagnoses Bipolar depression (HCC) Encntr for suprvsn of normal preg, unsp, second trimester Procedures US Obstetric Detail Anatomy Transabdominal Single Fetus Danni Tamez, DO [address] [place] [address] Referral ID Status Reason Start Date Expiration Date V isits Requested Visits Authorized [id number] Authorized 05/02/2021 05/02/2022 1 1 Specialty Diagnoses / Procedures Referred By Contac t Referred To Contact Behavioral Health Diagnoses Bipolar depression (HCC) Danni Tamez, DO [address] [place] [address] Referral ID Status Reason Start Date Expiration Date V isits Requested Visits Authorized [id number] Pending Review 04/11/2021 04/11/2022 1 1 Specialty Diagnoses / Procedures Referred By Contac t Referred To Contact Maternal and Medicine Diagnoses Bipolar depression (HCC) Encntr for suprvsn of normal preg, unsp, second trimester Procedures US Obstetric Detail Anatomy Transabdominal Single Fetus Danni Tamez, DO [address] [place] [address] [facility] [place] [address] Chief Complaint and Reason for Visit Chief [...] received any records from her provider in [place]. She will have PNL's, pap and cultures [...] section and content) DATE CREATED AUTHOR 10/07/2020 [facility] DATE CREATED AUTHOR AUTHOR'S ORGANIZ ATION 05/20/2021 [facility] DATE CREATED AUTHOR AUTHOR'S ORGANIZ ATION 09/28/2021 [facility] DATE CREATED AUTHOR AUTHOR'S ORGANIZ ATION 02/25/2022 [facility] DATE CREATED AUTHOR AUTHOR'S ORGANIZ ATION 11/30/2022 [facility] DATE CREATED AUTHOR AUTHOR'S ORGANIZ ATION 03/26/[address] [facility] DATE CREATED AUTHOR AUTHOR'S ORGANIZ ATION 06/05/2023 [facility] DATE CREATED AUTHOR AUTHOR'S ORGANIZ ATION 03/09/2024 [facility] DATE CREATED AUTHOR AUTHOR'S ORGANIZ ATION 05/11/2024 [facility] DATE CREATED AUTHOR AUTHOR'S ORGANIZ ATION 12/17/2024 [facility] Care Teams (unrecognized sec tion and content) Traveling Plant Operator Relationship Specialty Start Date End Date No, Physician [facility] PCP - General 03/21/21 Traveling Plant Operator Relationship Specialty Start Date End Date No, Physician [facility] PCP - General 03/21/21 Traveling Plant Operator Relationship Specialty Start Date End Date No, Physician [facility] PCP - General 03/21/21 Traveling Plant Operator Relationship Specialty Start Date End Date Physician, No Pcp PCP - General 05/20/21 Traveling Plant Operator Relationship Specialty Start Date End Date No, Physician [facility] PCP - General 03/21/21 Traveling Plant Operator Relationship Specialty Start Date End Date No, Physician [facility] PCP - General 03/21/21 Traveling Plant Operator Relationship Specialty Start Date End Date No, Physician [facility] PCP - General 03/21/21 Traveling Plant Operator Relationship Specialty Start Date End Date No, Physician [facility] PCP - General 03/21/21 Traveling Plant Operator Relationship Specialty Start Date End Date No, Physician [facility] PCP - General 03/21/21 Traveling Plant Operator Relationship Specialty Start Date End Date No, Physician [facility] PCP - General 03/21/21 Traveling Plant Operator Relationship Specialty Start Date End Date No, Physician [facility] PCP - General 03/21/21 Traveling Plant Operator Relationship Specialty Start Date End Date No, Physician [facility] PCP - General 03/21/21 Traveling Plant Operator Relationship Specialty Start Date End Date No, Physician [facility] PCP - General 03/21/21 Traveling Plant Operator Relationship Specialty Start Date End Date No, Physician [facility] PCP - General 03/21/21 Traveling Plant Operator Relationship Specialty Start Date End Date No, Physician [facility] PCP - General 03/21/21 Traveling Plant Operator Relationship Specialty Start Date End Date No, Physician [facility] PCP - General 09/14/21 Traveling Plant Operator Relationship Specialty Start Date End Date No, Physician [facility] PCP - General 09/14/21 Traveling Plant Operator Relationship Specialty Start Date End Date No, Physician [facility] PCP - General 09/14/21 Traveling Plant Operator Relationship Specialty Start Date End Date Juan R Osorio MD [address] [place] [address] PCP - General Family Medicine 11/05/20 Traveling Plant Operator Relationship Specialty Start Date End Date Juan R Osorio MD [address] [place] [address] PCP - General Family Medicine 11/05/20 Traveling Plant Operator Relationship Specialty Start Date End Date Juan R Osorio MD [address] [place] [address] PCP - General Family Medicine 11/05/20 Team Status: Active Member Role Status Dates No Primary Care Physician Primary Care Provider Active Team Status: Inactive Member Role Status Dates No Primary Care Physician Primary Care Provider Active Dr. Myron Machuca , DO Emergency Provider Active Traveling Plant Operator Relationship Specialty Start Date End Date Juan R Osorio MD [address] [place] [address] PCP - General Family Medicine 11/05/20 11/06/23 [...] or prosecute any alcohol or drug abuse patient.[facility] HealthIn the event this information is protected by the Federal Confidentiality of Alcohol and Drug Abuse Patient Records regulations: The Federal rules restrict any use of the information to criminally investigate or prosecute any alcohol or drug abuse patient.[facility] HealthIn the event this information is protected by the Federal Confidentiality of Alcohol and Drug Abuse Patient Records regulations: The Federal rules restrict any use of the information to criminally investigate or prosecute any alcohol or drug abuse patient.[facility] HealthIn the event this information is protected by the Federal Confidentiality of Alcohol and Drug Abuse Patient Records regulations: The Federal rules restrict any use of the information to criminally investigate or prosecute any alcohol or drug abuse patient.[facility] FOR RECORDS PERTAINING TO PATIENTS WHO ARE [...] CLINICAL RECORDS. [facility] [employer] [facility]. provides no warranty or guarantee of the accuracy or completeness of information in this document.
[2025-01-24 02:00] VITALS: BP 109/79; PULSE 78; RESP 16; O2SAT 97
--- NOTE | 2025-01-24 02:30 | CT_ITS ---
PROCEDURE: ABDOMEN/PELVIS WITHOUT CONT 01/24/2025 REASON FOR EXAM: LEFT FLANK PAIN TECHNIQUE: Procedure Code: CTABDPEL Modality: CT Procedure: ABDOMEN/PELVIS WITHOUT CONT Noncontrast technique limits evaluation of the abdominal and pelvic viscera. Coronal and Sagittal reconstruction series were provided. One or more dose reduction techniques were used (e.g., Automated exposure control, adjustment of the mA and/or kV according to patient size, use of iterative reconstruction technique). RADIATION DOSE SUMMARY: CTDlvol: 17.25 mGy DLP: 930 mGycm COMPARISON: 03/19/2024. FINDINGS: Prominent subsegmental atelectatic airspace disease/infiltrates in the right lower lobe. Hypoventilatory pulmonary changes and/or superimposed pneumonia. Prior cholecystectomy. Minimal diffuse thickening of the bladder, possibly cystitis. Fat containing umbilical hernia without incarceration. Bilateral chronic changes of sacroiliitis, unchanged. Normal unenhanced liver. Normal extrahepatic biliary system. Normal unenhanced spleen. Normal pancreas. Normal bilateral adrenal glands. Normal size of the right kidney. There is no right renal mass. There are no right renal calculi. There is no right hydronephrosis. Normal visualized right ureter. Normal size of the left kidney. There is no left renal mass. There are no left renal calculi. There is no left hydronephrosis. Normal visualized left ureter. Normal visualized stomach. Normal small intestine. Normal colon. The appendix is visualized and appears normal. There is no demonstrated peritoneal fluid. Normal abdominal aorta. Normal inferior vena cava. Normal retroperitoneum. There is no pelvic mass lesion or lymphadenopathy. There is no pelvic fluid. CT/Abdomen/Pelvis without Cont IMPRESSION: Prominent subsegmental atelectatic airspace disease/infiltrates in the right lo wer lobe. Hypoventilatory pulmonary changes and/or superimposed pneumonia. Prior cholecystectomy. Minimal diffuse thickening of the bladder, possibly cystitis. Fat containing umbilical hernia without incarceration. Bilateral chronic changes of sacroiliitis, unchanged. Reading Location: [place] [id number]
--- NOTE | 2025-01-24 02:32 | EX.ED.DYSGE1 ---
HPI History of Present Illness Chief Complaint: Abd Pain Narrative Narrative: Chief complaint and HPI: Left flank pain. 29-year-old female with past medical history of PTSD, depression, anxiety presents for evaluation of left flank pain. Patient states she was at work where she developed an episode of emesis and nausea. States she shortly developed left flank pain. She states her nausea has improved but not her pain. She denies any fever, chills, shortness of breath, chest pain, dysuria, urinary frequency, diarrhea, constipation. Review of systems: See HPI Medications: As listed on the chart Allergies: As listed on the chart PFSH: Per chart Vital signs: As listed on the chart. Reviewed. Physical exam: Gen: A&O x3, NAD Head: Normocephalic, atraumatic Eyes: No sclera icterus, conjunctiva clear ENT: Moist mucous membranes Neck: Trachea midline, No JVD CV: RRR, no murmurs, no peripheral edema Resp: Lungs CTA BL, no w/r/c GI: Abd soft, non-distended, non-tender, no r/r/g : No CVA tenderness Musc: Full ROM, no deformity no midline spinal tenderness, no bony step-off, tender to palpation in the upper lumbar spine Skin: Warm, dry Neuro: Alert, oriented, grossly intact, sensation intact Psych: Cooperative, appropriate mood and affect [facility] Medical History delivery delivered PTSD (post-traumatic stress disorder) Depression Anxiety Colitis Home Medications ?Medication ?Instructions ?Recorded ?Last Taken ?Type ciprofloxacin HCl 500 mg tablet 500 mg PO BID #14 TABLETS 06/15/23 Unknown Rx hydrocodone-acetaminophen 5-325mg 1 tab PO Q6H PRN PRN Pain 3 days 06/15/23 Unknown Rx 5mg-325mg #12 TABLETS metronidazole 500 mg tablet 500 mg PO Q8H #21 tabs 06/15/23 Unknown Rx ondansetron 4 mg disintegrating 4 mg PO Q6H PRN PRN Nausea #10 tabs 06/15/23 Unknown Rx tablet sulfamethoxazole 800 1 tab PO BID #14 TABLETS 03/19/24 Unknown Rx mg-trimethoprim 160 mg tablet clindamycin HCl 150 mg capsule 450 mg (3 x 150 mg) PO TID #90 12/10/24 Unknown Rx CAPSULES ondansetron 4 mg disintegrating 4 mg PO Q8H PRN PRN Nausea #10 tabs 01/24/25 Unknown Rx tablet Allergy/AdvReac Type Severity Reaction Status Date / Time amoxicillin Allergy Anaphylaxis Verified 01/24/25 00:00 cefprozil (From Cefzil) Allergy Itching Verified 01/24/25 00:00 Penicillins (PCN) Allergy Anaphylaxis Verified 01/24/25 00:00 bupropion (From Wellbutrin) AdvReac Vomiting Verified 01/24/25 00:00 Surgical History History of tonsillectomy and adenoidectomy Hx of cholecystectomy Social History Smoking Status: Current every day smoker tobacco type: cigarettes EXAM Physical Exam Const Vital Signs: 01/24/25 00:00 01/24/25 02:00 01/24/25 03:44 Temperature 98 F Temperature Source Oral Pulse Rate 81 78 60 Respiratory Rate 16 16 16 Blood Pressure 118/69 109/79 94/55 L Blood Pressure Mean 85 89 68 Pulse Ox 100 97 98 Oxygen Delivery Method Room Air Room Air MDM MDM MDM Narrative Medical decision making narrative: 29-year-old female with past medical history of PTSD, depression, anxiety presents for evaluation of left flank pain. Patient states she was at work where she developed an episode of emesis and nausea. States she shortly developed left flank pain. She states her nausea has improved but not her pain. Differential diagnosis includes but is not limited to gastroenteritis, electrolyte abnormality, UTI, , urolithiasis, suspect less likely colitis, myofascial spasm. Abdominal pain protocols were placed in triage. The laboratory workup was performed and resulted by the time I saw the patient. CBC shows mild leukocytosis of 14.1. No anemia. CMP unremarkable except for hypokalemia of 2.8. P.o. potassium ordered. No BITA. Lipase unremarkable. Serum negative. UA positive for blood, WBC, bacteria however this is not a clean sample with greater than 100 squamous epithelial cells. Patient not endorsing any dysuria or frequency therefore will not be treated. Will send for culture. Cannot rule out urolithiasis without CT abdomen and pelvis without contrast. This was ordered. NS bolus, Zofran, Toradol ordered. CT abdomen pelvis shows prominent subsegmental atelectatic airspace disease/infiltrates in the right lower lobe. Hypoventilatory pulmonary changes and/or superimposed pneumonia. This does not correlate with HPI or physical exam. Lungs are clear auscultation bilaterally. Patient not endorsing any URI symptoms or cough. Will not treat for pneumonia. Minimal diffuse thickening of the bladder, possibly cystitis. Again, patient not endorsing urinary symptoms. UA was a contaminated specimen. Will not treat for UTI but sent for culture. Fat-containing umbilical hernia without incarceration. Bilateral chronic changes of sacroiliitis, unchanged. On reevaluation, patient's pain has improved. She has had no nausea or vomiting here in the emergency department. No clear etiology for patient's symptoms, may be viral. Recommend following up with PCP. Return precautions explained. Patient confirmed understand the plan. Will give Zofran prescription as needed for nausea and vomiting. Impression: 1. Abdominal pain 2. Nausea and vomiting Lab Data Labs: Laboratory Results - last 24 hr 01/24/25 01/24/25 00:12 00:20 WBC 14.1 H RBC 5.12 Hgb 13.7 Hct 42.3 MCV 82.6 MCH 26.8 L MCHC 32.4 RDW Std Deviation 40.7 RDW Coeff of Gautam 13.5 Plt Count 251 MPV 11.1 Immature Gran % (Auto) 0.800 Neut % (Auto) 73.6 H Lymph % (Auto) 19.0 Chaves % (Auto) 5.4 Eos % (Auto) 0.8 Baso % (Auto) 0.4 Absolute Neuts (auto) 10.4 H Absolute Lymphs (auto) 2.68 Nucleated RBC % 0 Sodium 136 Potassium 2.8 L Chloride 98 Carbon Dioxide 24.3 Anion Gap 13 BUN 5 Creatinine 0.64 L Estim Creat Clear Calc 133.05 Est GFR (MDRD) Non-Af 123 BUN/Creatinine Ratio 8.5 L Glucose 151 H Calcium 9.2 Total Bilirubin 0.23 AST 20 ALT < 5 Alkaline Phosphatase 104 Total Protein 7.2 Albumin 4.0 Globulin 3.2 Albumin/Globulin Ratio 1.3 Lipase 35 Serum , Qual NEGATIVE Urine Color Yellow Urine Clarity Clear Urine pH 5.0 Ur Specific Carmel 1.025 Urine Protein 30 H Urine Glucose (UA) Normal Urine Ketones 5 H Urine Occult Blood 10 H Urine Nitrite Negative Urine Bilirubin Negative Urine Urobilinogen 4 H Ur Leukocyte Esterase Negative Urine RBC 0-5 SEEN Urine WBC 5-10 SEEN Ur Squamous Epith Cells > 100 SEEN Urine Bacteria 3+ Hyaline Casts 10-25 SEEN Fine Granular Casts 0-5 SEEN Urine Mucus 3+ Radiography Diagnostic Testing: Clinical Impression(s) from Imaging Studies Abdomen/Pelvis CT 01/24/25 02:30 IMPRESSION: Prominent subsegmental atelectatic airspace disease/infiltrates in the right lower lobe. Hypoventilatory pulmonary changes and/or superimposed pneumonia. Prior cholecystectomy. Minimal diffuse thickening of the bladder, possibly cystitis. Fat containing umbilical hernia without incarceration. Bilateral chronic changes of sacroiliitis, unchanged. Reading [facility] Discharge Plan Triage Chief Complaint: Abd Pain ED Provider: Anjel De La Cruz Dx/Rx/DC Orders Clinical Impression: Abdominal pain Instructions: ED Abdominal Pain Unkn Cause Fem Prescriptions: New ondansetron 4 mg tablet,disintegrating 4 mg PO Q8H PRN PRN (Reason: Nausea) Qty: 10 0RF No Action hydrocodone-acetaminophen [hydrocodone-acetaminophen] 5-325 mg tablet 1 tab PO Q6H PRN PRN (Reason: Pain) 3 Days Qty: 12 0RF metronidazole [metronidazole] 500 mg tablet 500 mg PO Q8H Qty: 21 0RF ciprofloxacin HCl [ciprofloxacin HCl] 500 mg tablet 500 mg PO BID Qty: 14 0RF ondansetron [ondansetron] 4 mg tablet,disintegrating 4 mg PO Q6H PRN PRN (Reason: Nausea) Qty: 10 0RF sulfamethoxazole-trimethoprim 800-160 mg tablet 1 tab PO BID Qty: 14 0RF clindamycin HCl 150 mg capsule 450 mg PO TID Qty: 90 0RF Primary Care Provider: Care Physician,No Primary Referrals: Chalo Morales MD [Med Staff - Active Staff] - 3-5 Days Activity Restrictions/Additional Instructions: Follow-up with primary care physician. Return back to the ED symptoms change or worsen Print Language: Setswana Disposition Disposition: Home, Self Care
[2025-01-24] MEDS: Ketorolac 30 MG/ML Syringe IV (02:45)
[2025-01-24] MEDS: 0.9% Normal Saline (1000mL) 1,000 ML 999 ML IV (02:46)
[2025-01-24] MEDS: Potassium Chloride Oral Soln 20 MEQ/15 ML UDC 40 MEQ PO (02:46)
[2025-01-24 03:44] VITALS: BP 94/55; PULSE 60; RESP 16; O2SAT 98
[2025-01-24 04:37] VITALS: BP 96/60; PULSE 62; RESP 16; TEMP 36.7; O2SAT 97
== END 2025-01-24 04:39 | disposition home or self-care (01) ==
PROVIDERS: Emergency Provider Surgery; Visit Provider Surgery
DX: R10.9 Unspecified abdominal pain (principal); R11.2 Nausea with vomiting, unspecified; Z90.49 Acquired absence of other specified parts of digestive tract; F17.210 Nicotine dependence, cigarettes, uncomplicated
CPT/HCPCS: 74176; 80053; 81001; 83690; 84703; 85025; 87086; 87088; 96361; 96374; 96375; 99284; J2405

== ENCOUNTER 2025-03-24 20:02 | Emergency (ER) | payer MEDICAID, SELFPAY ==
[2025-03-24 20:03] VITALS: BP 136/91; PULSE 71; RESP 18; TEMP 36.3; O2SAT 100; BMI 33.5
[2025-03-24] MEDS: HYDROcodone Bitartrate/Apap 5/325 Tablet PO (20:27)
--- NOTE | 2025-03-24 20:28 | ED.VIS.DENTA ---
HPI History of Present Illness Chief Complaint: Dental Narrative Narrative: 29-year-old female who denies significant past medical history except for being a smoker presents with right lower jaw pain and swelling and dental pain that she has had for at least the last 4 days. She saw an urgent care in [place] who started her on clindamycin. She is taking 3 capsules 3 times a day. She is on day 4. She noticed jaw swelling in her right lower jaw. She has had subjective fever as well. No difficulty swallowing. No difficulty breathing. She has been taking Tylenol and ibuprofen alternatively without relief. PFSH PFS Medical History delivery delivered PTSD (post-traumatic stress disorder) Depression Anxiety Colitis Home Medications ?Medication ?Instructions ?Recorded ?Last Taken ?Type hydrocodone-acetaminophen 5-325mg 1 tab PO Q6H PRN PRN Pain 3 days 06/15/23 Unknown Rx 5mg-325mg #12 TABLETS metronidazole 500 mg tablet 500 mg PO Q8H #21 tabs 06/15/23 Unknown Rx clindamycin HCl 150 mg capsule 450 mg (3 x 150 mg) PO TID #90 12/10/24 Unknown Rx CAPSULES hydrocodone-acetaminophen 5-325mg 1 tab PO Q6H PRN pain 3 days #12 03/24/25 Unknown Rx 5mg-325mg tabs Allergy/AdvReac Type Severity Reaction Status Date / Time amoxicillin Allergy Anaphylaxis Verified 03/24/25 20:03 cefprozil (From Cefzil) Allergy Itching Verified 03/24/25 20:03 Penicillins (PCN) Allergy Anaphylaxis Verified 03/24/25 20:03 bupropion (From Wellbutrin) AdvReac Vomiting Verified 03/24/25 20:03 Surgical History History of tonsillectomy and adenoidectomy Hx of cholecystectomy Social History Smoking Status: Current every day smoker tobacco type: cigarettes ROS ROS ED ROS Narrative Review of systems positive for right lower jaw pain and swelling. Positive dental pain. Subjective fevers. No difficulty swallowing or breathing. Constant pain. EXAM Physical Exam Narrative Exam Narrative: Afebrile. Vital signs noted. Nontoxic-appearing. Focused examination of the mouth does show a carious tooth #30. No fluctuance of the gums. No drooling or trismus. Airway patent. No Aj angina. Neck soft and supple without stridor. Mild swelling on cheek of right mandible, no erythema of skin. Const Vital Signs: 03/24/25 20:03 Temperature 97.4 F L Temperature Source Temporal Pulse Rate 71 Respiratory Rate 18 Blood Pressure 136/91 H Blood Pressure Mean 106 Pulse Ox 100 Oxygen Delivery Method Room Air MDM MDM MDM Narrative Medical decision making narrative: I do not feel differential diagnosis is applicable. Patient has a dental abscess. She is already on clindamycin. She has an allergy to penicillin so I do not feel that she needs a change in antibiotics. She was told to take [id number] medications like Tylenol and ibuprofen properly as she may be taking too much ibuprofen. She was given 1 Vance tablet here in the emergency department and prescription written for 3 days. I reviewed her OARRS report which shows that she has not had narcotics in quite some time, and her last Vance prescription was in 2023. She has an appointment on the third, the following Sunday at the [facility] dental clinic. Smoking cessation was discussed. I do not feel she needs laboratory work or imaging at this time. Return instructions to the emergency department were reviewed. Disposition is discharged home in stable condition. History & Record Review Discussion w/independent historian: Patient Additional record(s) reviewed:: Other (OARRS report) Discharge Plan Triage Chief Complaint: Dental ED Provider: Geovanni Calabrese Dx/Rx/DC Orders Clinical Impression: Dental abscess, Swelling of mandible Instructions: ED Dental Pain, ED Dental Cavity, ED Dental Abscess Prescriptions: New hydrocodone-acetaminophen 5-325 mg tablet 1 tab PO Q6H PRN (Reason: pain) 3 Days Qty: 12 0RF No Action hydrocodone-acetaminophen [hydrocodone-acetaminophen] 5-325 mg tablet 1 tab PO Q6H PRN PRN (Reason: Pain) 3 Days Qty: 12 0RF metronidazole [metronidazole] 500 mg tablet 500 mg PO Q8H Qty: 21 0RF clindamycin HCl 150 mg capsule 450 mg PO TID Qty: 90 0RF Primary Care Provider: Care Physician,No Primary Referrals: Care Physician,No Primary [Primary Care Provider, Medical] Activity Restrictions/Additional Instructions: Continue your clindamycin as previously directed. Follow-up with a dentist to soon as possible. Return to the emergency department with fever, inability to swallow, new or worsening symptoms. Stop smoking. Print Language: Kinyarwanda Disposition Disposition: Home, Self Care
[2025-03-24 20:38] VITALS: BP 135/92; PULSE 59; RESP 16; TEMP 36.3; O2SAT 99
--- NOTE | 2025-03-24 20:42 | CM.ED ---
Social Work SW met with patient who expressed frustration with her dental issues. A dental provider list was given that includes oral surgeons. Patient expressed appreciation for same. No further needs identified at this time. Sharon Kelly, BIOCHEMICAL ENGINEER, [employer]ER [employer]
== END 2025-03-24 20:45 | disposition home or self-care (01) ==
LOC: ED 20:38
PROVIDERS: Emergency Provider Emergency Medicine; Visit Provider Emergency Medicine
DX: K04.7 Periapical abscess without sinus (principal); F17.210 Nicotine dependence, cigarettes, uncomplicated
CPT/HCPCS: 99282